=== PATIENT | female | born 2000 | race Caucasian/White ===

== ENCOUNTER 2019-03-10 12:47 | Emergency (ER) | payer BC, SELFPAY ==
--- NOTE | 2019-03-10 12:52 | W.ED.GENAD ---
Discharge Plan Disposition Patient Disposition: HOME Condition: Stable Discharge Details Chief Complaint: Abd Prob Clinical Impression: Crohn disease, Right lower quadrant abdominal pain Primary Care Provider: Ashvin Castillo ED Provider: Jun Adams Home Meds and New Rx's Prescriptions: New prednisone 20 mg tablet 60 mg PO DAILY 5 Days Qty: 15 RF: 0 ciprofloxacin HCl 500 mg tablet 500 mg PO BID Qty: 14 RF: 0 metronidazole [Flagyl] 500 mg tablet 500 mg PO TID Qty: 21 RF: 0 No Action Novolog Flexpen U-100 Insulin 100 UNIT/1 ML insulin pen 6 unit IJ AC & HS 30 Days RF: 0 Humira Pen 40 MG/0.8 ML pen injector kit 80 units Sub-Q DIRECTED RF: 0 Levemir FlexTouch U-100 Insuln 100 unit/mL (3 mL) Insulin Pen 32 unit SUBCUT .QHS RF: 0 Discharge Instructions Additional Instructions: Your cat scan showed that you have a region of your bowel that is inflammed and is likely causing your symptoms follow up with your primary care provider within 1-2 weeks if you have severe worsening of pain, persistent vomit or feel significantly more ill return to the emergency department for reevaluation Medical Decision Making 18 yo female with hx of T1dm, crohn's, who comes in with chief complaint of 2-3 days of lower abdominal pain. She is not sure if it feels similar to prior crohn's flares. She denies fevers, chills, vomithas had intermittent nausea. She has pain in the lower abdomen on both sides but right is greater than left. Given location of pain will obtain ct imaging to eval for possible appendicitis among other pathology. patient's labs unremarkable other than mild leukocytosis, ct shows inflammation of terminal ileum consistent with crohn's flare. Will place on steroids and abx and advised f/u with pcp and return precautions given Differential Diagnosis colitis, appendicitis Medical Records Medical records reviewed: Yes I reviewed the patient's medical records. Imaging Data Radiologic Study: Attestation: I personally reviewed and interpreted this imaging study as follows: Imaging: CT Scan Radiologist's impression: Abnormal distal and terminal ileal findings consist with history of regional enteritis. A degree of stricture at the terminal ileum is considered likely. Lab Data Lab results reviewed: Yes I reviewed the patient's lab results. HPI General Mode of arrival: ambulatory. Date/Time Provider Initiated Documentation: 03/10/19 12:48. Limitations to Documentation: no limitations. Information obtained by: patient. History of Present Illness 18 year old F presents to the emergency department with the chief complaint of lower abdominal pain, described as moderate, Quality is described as aching, and it has been intermittent. No relieving factors improve symptom(s), No exacerbating factors reported . Patient did receive the following treatments prior to arrival, none Related Data Home Medications Medication Instructions Recorded Confirmed Novolog Flexpen U-100 Insulin 6 unit IJ AC & HS 30 Days applic 12/21/15 03/10/19 Humira Pen 80 units SUB-Q DIRECTED 10/14/17 03/10/19 ciprofloxacin HCl 500 mg PO BID #14 tab 03/10/19 insulin detemir U-100 [Levemir 32 unit SUBCUT .QHS 03/10/19 03/10/19 FlexTouch U-100 Insuln] metronidazole [Flagyl] 500 mg PO TID #21 tab 03/10/19 prednisone 60 mg PO DAILY 5 Days #15 tab 03/10/19 Previous Rx's Medication Instructions Recorded ciprofloxacin HCl 500 mg PO BID #14 tab 03/10/19 metronidazole [Flagyl] 500 mg PO TID #21 tab 03/10/19 prednisone 60 mg PO DAILY 5 Days #15 tab 03/10/19 Allergies Allergy/AdvReac Type Severity Reaction Status Date / Time No Known Allergies Allergy Unverified 03/10/19 12:56 Review of Systems Review of Systems All systems reviewed & are unremarkable except as noted in HPI and below Constitutional Denies chills, Denies fever(s) and Denies weakness Cardiovascular Denies chest pain and Denies dyspnea Respiratory Denies cough and Denies dyspnea Gastrointestinal Denies vomiting Musculoskeletal Denies joint swelling Neurologic Denies weakness [facility] Medical History (Updated 09/25/18 @ 22:03 by Wendy Arredondo) DKA (diabetic ketoacidoses) Ileitis, terminal R KNEE INJURY Type I diabetes mellitus Surgical History (Updated 03/17/17 @ 06:44 by Wendy Kinsey) Colonoscopy - MAC (03/06/17) Social History Smoking/Tobacco Use Status: Never Alcohol Intake: never Drug use: Never Do you feel safe in your relationship?: Yes Exam Const General: no acute distress Orientation: alert HENMT Head: normal to inspection Ears: external ears normal General nose exam: external nose normal Mouth: moist mucous membranes Eyes General: appearance normal, both eyes and all related structures Neck Neck: normal visual inspection Resp Effort & Inspection: normal respiratory effort and able to speak in complete sentences Cardio Rate: regular rate Skin General skin exam: no rashes or lesions noted Neuro General: alert and oriented x3 Extrem General: normal to inspection Psych Mental Status: mental status grossly normal
[2019-03-10 12:53] VITALS: BP 117/76; PULSE 129; RESP 16; TEMP 36.3; O2SAT 96
--- NOTE | 2019-03-10 13:03 | DI.CT_ITS ---
SYMPTOM/DIAGNOSIS: RIGHT LOWER ABDOMINAL PAIN CT ABDOMEN AND PELVIS: CT scan of the abdomen and pelvis was performed following contrast administration. Comparison is 01/27/17 The lung bases are clear. The liver, spleen, pancreas, gallbladder, bile ducts and adrenal glands are unremarkable as are the kidneys, ureters and urinary bladder. Reproductive organs are unremarkable. The abdominal aorta is of normal caliber. No pneumoperitoneum is seen. There is bowel wall thickening and enhancement involving the distal ileum and terminal ileum. There is dilatation of the ileum up to 3 cm in diameter. Infiltration of the surrounding fat is noted. The remainder of the bowel is unremarkable. There are mildly enlarged lymph nodes seen in the right lower quadrant likely reactive. No ascites or free air is appreciated. No acute osseous abnormality is identified. IMPRESSION: Abnormal enhancement and wall thickening involving the distal and terminal ileum consistent with enteritis. This may be infectious or inflammatory.
[2019-03-10 13:22] LABS: BE (Venous) 1.9 mmol/L (-3-3); HCO3 (Venous) 26 mmol/L (22-28); O2 Sat (Venous) 87 % (70-80); TCO2 (Venous) 23 mmol/L (22-29); pCO2 (Venous) 39 mm/Hg (34-47); pH (Venous) 7.43 (7.32-7.43); pO2 (Venous) 46 mm/Hg (28-44)
[2019-03-10 13:23] LABS: Abs Immature Grans 0.05 k/cumm (0.0-0.09); Absolute Basophil Count 0.02 k/cumm (0.0-0.2); Absolute Lymphocyte Count 1.34 k/cumm (1.2-3.4); Absolute Monocyte Count 1.24 k/cumm (0.11-0.7); Basophils % 0.1; Eosinophils % 0.4; HCT 40.8 % (36.0-46.0); HGB 13.7 g/dL (12.0-15.5); Immature Grans % 0.3; Lymphocytes % 8.1; Mean Corp. HGB Concentration 33.6 g/dL (32.0-36.0); Mean Corpuscular Hemoglobin 30.4 pg (27.0-33.0); Mean Corpuscular Volume 90.5 fL (80-95); Mean Platelet Volume 10.5 fL (8.0-11.0); Monocytes % 7.5; Neutrophils % 83.6; Platelet Count 334 x1000/uL (130-400); RBC 4.51 m/cumm (4.00-5.20); RBC Distribution Width 12.5 % (11.7-14.6); White Blood Cell Count 16.51 k/cumm (4.4-10.8)
[2019-03-10 13:25] LABS: Absolute Eosinophil Count 0.07 k/cumm (0.0-0.7)
[2019-03-10] MEDS: Ketorolac 15 MG/ML VIAL IVP (13:37)
[2019-03-10] MEDS: Normal Saline 1,000 ML 1000 ML IV (13:37)
[2019-03-10] MEDS: Ondansetron 4 MG/2 ML VIAL IVP (13:37)
[2019-03-10 13:41] LABS: ALT 10 U/L (12-78); Albumin 3.4 g/dL (3.4-5.0); Alkaline Phosphatase 69 U/L (46-116); Anion Gap 12.5 mmol/L (3-11); BUN 11 mg/dL (7-18); Bilirubin, Total 0.5 mg/dL (0.2-1.0); CO2 25.5 mmol/L (21.0-32.0); CREATININE 0.86 mg/dL (0.55-1.02); Calcium 9.3 mg/dL (8.5-10.1); Chloride 100 mmol/L (98-107); Glucose 237 mg/dL (70-100); Lipase 52 U/L (73-393); Magnesium 1.7 mg/dL (1.8-2.4); Sodium 138 mmol/L (136-145); Total Protein 7.9 g/dL (6.4-8.2)
[2019-03-10 13:42] LABS: AST < 5 U/L (15-37)
[2019-03-10] MEDS: Omnipaque 350 MG/ML 100 ML BTL IV (14:05)
[2019-03-10 14:25] LABS: Bilirubin Small (Negative); Blood Small (Negative); Clarity Cloudy (Clear); Glucose 100 mg/dL (Negative); Ketones 15 mg/dL (Negative); Leukocyte Esterase Negative (Negative); Nitrite Negative (Negative); Specific Gravity 1.025 (1.005-1.025)
[2019-03-10 14:37] LABS: Epithelial Cells Many HPF (Negative)
[2019-03-10 14:38] LABS: C & S Indicated? No/Sq. Contamination
[2019-03-10 15:02] VITALS: TEMP 38
--- NOTE | 2019-03-10 15:15 | DI.VRAD_ITS ---
EXAM: CT Abdomen and Pelvis With Contrast EXAM DATE/TIME: 03/10/2019 1:04 PM CLINICAL HISTORY: 18 years old, female; Patient HX: Right lower abdominal pain x 2day, HX of crohn disease. TECHNIQUE: Imaging protocol: Axial computed tomography images of the abdomen and pelvis with intravenous contrast. Coronal and sagittal reformatted images were created and reviewed. Radiation optimization: All CT scans at this facility use at least one of these dose optimization techniques: automated exposure control; mA and/or kV adjustment per patient size (includes targeted exams where dose is matched to clinical indication); or iterative reconstruction. Contrast material: OMNIPAQUE 350;Contrast volume: 98 ml;Contrast route: IV; COMPARISON: CT ABD PELVIS WITH CONTRAST 01/27/2017 1:01 PM FINDINGS: Liver: Normal. No mass. Gallbladder and bile ducts: Normal. No calcified stones. No ductal dilation. Pancreas: Normal. No ductal dilation. Spleen: Normal. No splenomegaly. Adrenals: Normal. No mass. Kidneys and ureters: Normal. No hydronephrosis. Stomach and bowel: There is wall edema and hyperemia involving the distal and terminal ileum. There is some relative efferent distention of the distal ileum, nearly 3 cm. Appendix: The appendix is identified, non-thickened. Intraperitoneal space: Normal. No free air. No significant fluid collection. Vasculature: Normal. No abdominal aortic aneurysm. Lymph nodes: There is mild pericecal adenopathy. Bladder: Unremarkable as visualized. Reproductive: Unremarkable as visualized. Bones/joints: No acute fracture. No dislocation. Soft tissues: Unremarkable. Other findings: There is edema of the vasa recta with adjacent inflammatory change. IMPRESSION: Abnormal distal and terminal ileal findings consist with history of regional enteritis. A degree of stricture at the terminal ileum is considered likely. COMMENT: Preliminary interpretation is based on receipt of 317 image(s). A final report will be issued subsequently. Dictated and Authenticated by: Sarah Beth Guerrero MD. Ordering:JACKIE Barahona MD
[2019-03-10 15:31] VITALS: BP 99/61; PULSE 80; RESP 16; TEMP 37; O2SAT 98
[2019-03-10 15:32] VITALS: BP 99/61; PULSE 80; RESP 16; TEMP 37; O2SAT 98
== END 2019-03-10 15:35 | disposition home or self-care (01) ==
PROVIDERS: Emergency Provider Emergency Medicine; PCP Pediatrics
DX: K50.919 Crohn's disease, unspecified, with unspecified complications (principal); E10.9 Type 1 diabetes mellitus without complications
CPT/HCPCS: 36415; 80053; 81025; 82805; 83690; 96361; 96374; 96375; 99285; 74177; 81003; 81015; 83735; 85025; 99284; J1885; J2405; J3490

== ENCOUNTER 2019-03-22 15:24 | Outpatient (CLI) | payer BC, SELFPAY ==
[2019-03-22 16:38] LABS: C-Reactive Protein 2.59 mg/dL (0.0-0.3)
[2019-03-25 08:07] LABS: Vitamin D 25 Total 21.1 ng/ml (30-100)
[2019-03-26 22:02] LABS: Adalimumab QN with Reflex Ab 1.7 mcg/mL
== END 2019-03-22 15:44 ==
PROVIDERS: PCP Pediatrics; Visit Provider Pediatrics
DX: K50.919 Crohn's disease, unspecified, with unspecified complications (principal)
CPT/HCPCS: 36415; 82306; 83520; 86140

== ENCOUNTER 2019-09-05 16:32 | Outpatient (CLI) | payer BC, SELFPAY ==
--- NOTE | 2019-09-05 10:00 | DIABASSESS_ITS ---
DESCRIPTION/ASSESSMENT: Moinca Dutta presents for diabetes self management with type 1 diabetes in at 7 weeks gestation. She reports vomiting sometimes if she eats anything. She states she is very worried about miscarrying. Thinks A1c was 7.3 6 months ago or so. Monica states she manages diabetes with 30u Lantus and about 25u Novolog daily dosing at 1 unit covers 18grams carbohydrate and 1 unit corrects 40mg/dl above 120. Reports hypoglycemia 2-3 times a week. Blood sugars over past 24 hours 69-239. She tests her blood sugars several times a day and corrects her insulin whenever she tests, even though it is less than 4 hours. She states she checks ketones if blood sugar over 170mg.dl. INTERVENTION: Monica is aware of the risks of out of control blood sugars and . At this time we do not have a good picture of her dosing insulin, food intake and resulting blood sugar. Discussed insulin correction no greater than 3-4 hours apart. Discussed ketone testing. Discussed diabetes technology with monitoring blood sugars iw continuous glucose monitor and administering insulin with a pump. PLAN: She will document food, blood sugar and insulin dosing for 24 hours and be in touch. In meantime found that Dexcom G6 is not approved for although it is worn. Patient would need to verify blood sugars with glucometer prior to dosing insulin. It would give her trends and rates of change of blood sugar.
== END 2019-09-05 16:52 ==
PROVIDERS: PCP Pediatrics; Visit Provider Dietitian, Registered
DX: O24.011 Pre-existing type 1 diabetes mellitus, in pregnancy, first trimester (principal); Z71.3 Dietary counseling and surveillance
CPT/HCPCS: G0108

== ENCOUNTER 2019-09-26 17:21 | Outpatient (REF) | payer BC, SELFPAY ==
[2019-09-26 18:14] LABS: *AMPHETAMINES SCREEN URINE Negative (Negative); *BARBITURATES SCREEN URINE Negative (Negative); *BENZODIAZEPINES SCREEN URINE Negative (Negative); Cannabinoids THC POSITIVE (Negative); Cocaine Screen,Urine Negative (Negative); METHADONE URINE SCREEN Negative (Negative); OPIATES URINE SCREEN Negative (Negative)
[2019-09-26 18:15] LABS: Tricyclic Antidepressants Negative (Negative)
[2019-10-02 10:28] LABS: Buprenorphine Negative; Norbuprenorphine Negative
== END 2019-09-26 17:41 ==
LOC: LBN 17:21
PROVIDERS: PCP Pediatrics; Visit Provider Advanced Practice Midwife
DX: Z34.91 Encounter for supervision of normal pregnancy, unspecified, first trimester (principal)
CPT/HCPCS: 80307; 87086

== ENCOUNTER 2019-10-04 11:16 | Outpatient (CLI) | payer BC, SELFPAY ==
[2019-10-04 11:47] LABS: Kit/Specimen SENT
== END 2019-10-04 11:36 ==
PROVIDERS: PCP Pediatrics; Visit Provider Advanced Practice Midwife
DX: Z34.01 Encounter for supervision of normal first pregnancy, first trimester (principal); Z3A.11 11 weeks gestation of pregnancy

== ENCOUNTER 2019-10-25 15:56 | Outpatient (REF) | payer BC, SELFPAY ==
[2019-10-28 14:44] LABS: Chlamydia Result Negative (Negative); GC Result Negative (Negative)
== END 2019-10-25 16:16 ==
LOC: LBN 15:56
PROVIDERS: PCP Pediatrics; Visit Provider Obstetrics & Gynecology Gynecology
DX: Z34.91 Encounter for supervision of normal pregnancy, unspecified, first trimester (principal); Z11.3 Encounter for screening for infections with a predominantly sexual mode of transmission
CPT/HCPCS: 87491; 87591

== ENCOUNTER 2020-02-24 10:02 | Outpatient (CLI) | payer BC, SELFPAY ==
[2020-02-24 15:45] LABS: HCT 33.7 % (36.0-46.0); HGB 11.2 g/dL (12.0-15.5); Mean Corp. HGB Concentration 33.2 g/dL (32.0-36.0); Mean Corpuscular Hemoglobin 28.5 pg (27.0-33.0); Mean Corpuscular Volume 85.8 fL (80-95); Mean Platelet Volume 11.6 fL (8.0-11.0); Platelet Count 291 x1000/uL (130-400); RBC 3.93 m/cumm (4.00-5.20); RBC Distribution Width 12.5 % (11.7-14.6); White Blood Cell Count 8.87 k/cumm (4.4-10.8)
[2020-02-24] MEDS: NIFEdipine 10 MG CAP PO (15:48)
[2020-02-24 15:57] LABS: ALT 16 U/L (14-59); AST 20 U/L (15-37); Albumin 2.5 g/dL (3.4-5.0); Alkaline Phosphatase 109 U/L (46-116); Anion Gap 9.7 mmol/L (3-11); BUN 13 mg/dL (7-18); Bilirubin, Total 0.2 mg/dL (0.2-1.0); CO2 23.3 mmol/L (21.0-32.0); CREATININE 0.74 mg/dL (0.55-1.02); Calcium 9.1 mg/dL (8.5-10.1); Chloride 102 mmol/L (98-107); Glucose 144 mg/dL (74-106); Sodium 135 mmol/L (136-145); Total Protein 6.7 g/dL (6.4-8.2); Uric Acid 5.4 mg/dL (2.6-6.0)
[2020-02-24] MEDS: Normal Saline Flush 10 ML SYR (16:14)
[2020-02-24] MEDS: Lactated Ringers 1,000 ML 30 ML IV (16:16)
--- NOTE | 2020-02-24 16:37 | HPE_ITS ---
Date of service: 02/24/20 Time of Service: 16:37 Assessment and Plan Assessment and plan (1) : Status: Acute Qualifiers: Weeks of gestation: 32 weeks Qualified Code(s): Z3A.32 - 32 weeks gestation of (2) Type 1 diabetes mellitus without complication: Status: Acute (3) Elevated blood pressure affecting in third trimester, antepartum: Status: Acute Assessment and plan: New onset of severe hypertension treated with 1 dose of oral nifedipine with good response. After discussion with Paige dial at [facility] the plan is to transfer care for proximity to NICU and for treatment and monitoring of patient's blood pressure and diabetes. She has excepted care and will be transported via ambulance. The plan at this time is to have an RN accompany her with instructions regarding dosing IV antihypertensive medication were her blood pressure to become critical. Per d iscussion with Dr. Celestin no steroids will be administered at this time. History of Present Illness History of Present Illness Chief Complaint: 19-year-old female currently 32 weeks EGA with hypertension and type 1 DM Narrative: Patient is a 19-year-old G1, P0 female with an NI of 04/20/2020 by a first trimester OB ultrasound who presented to the center at [facility] for initiation of NSTs. Patient has a history of type 1 diabetes since 2014 and has been cared for by the maternal- medicine service at [facility]. At the time of presentation for the NST at 1517 her blood pressure 169/107. Sequential blood pressure taken every 10 minutes 1527: 178/104, 1537: 170/116. Patient received 10 mg of nifedipine and her follow-up blood pressure at 1556 140/100 followed by blood pressure at 1600 of 155/90. I spoke with Dr. Paige Celestin regarding patient's blood pressure issues and decision was made to transfer her to [facility] for higher level of care. Review of Systems Constitutional Constitutional: Reports system reviewed and no additional complaints, except as documented Cardiovascular Cardiovascular: Reports rapid heart rate and Reports pedal edema (Bilateral) Respiratory Respiratory: Reports system reviewed and no additional complaints, except as documented Gastrointestinal Gastrointestinal: Reports system reviewed and no additional complaints, except as documented Genitourinary Comments: Abdominal pressure. No contractions no loss of fluid from the vagina. 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 Sexually active: Yes Do you think of yourself as: straight/heterosexual Current gender identity: female Do you feel safe in your relationship?: Yes Female Reproductive History Menstrual Age of Menarche: 10 Duration of menses: 3-5 days control method: pills History History 1 Para 0 Hx # Term Pregnancies 0 Multiple births 0 Hx # Pregnancies 0 Ectopic pregnancies 0 AB induced 0 Hx Number of Living Children 0 AB spontaneous 0 Meds Home Medications and Allergies Home Medications Medication Instructions Recorded Confirmed Type vits 75-iron 28 mg-folic pkg PO 09/12/19 10/25/19 History acid 800 mcg-omega3 440 mg oral pack insulin detemir U-100 100 unit/mL 30 unit SUBCUT .QHS ml 09/26/19 10/25/19 History (3 mL) subcutaneous pen insulin lispro 100 unit/mL 1 unit SC .COMPLEX ml 09/26/19 10/25/19 History subcutaneous pen Allergies Allergy/AdvReac Type Severity Reaction Status Date / Time No Known Allergies Allergy Verified 10/25/19 14:22 Exam Const General: no acute distress Nutritional Appearance: overweight Orientation: alert, awake and oriented x3 Neck Neck: normal visual inspection Resp Effort & Inspection: normal respiratory effort Auscultation: clear to auscultation bilaterally Cardio Rate: regular rate and tachycardic Rhythm: regular rhythm GI Inspection: normal to inspection Palpation: soft, no hepatosplenomegaly, no guarding and nontender General: deferred Skin General skin exam: no rashes or lesions noted Neuro DTR's: Rt Patellar: 1+ (No clonus) and Lt Patellar: 1+ (No clonus) Extrem General: edema Laterality: bilateral (Pretibial edema bilaterally) Psych Speech and Movement: speech and movement normal Mood: anxious mood (Tearful when told about transfer to [facility]) Affect: normal affect Attitude: cooperative Thought Process: normal Insight: insight good Judgment: judgment good Results Labs Result diagrams: 02/24/20 15:35 02/24/20 15:35 Labs: Laboratory Results - last 24 hr 02/24/20 02/24/20 15:35 15:35 WBC 8.87 RBC 3.93 L Hgb 11.2 L Hct 33.7 L MCV 85.8 MCH 28.5 MCHC 33.2 RDW 12.5 Plt Count 291 MPV 11.6 H Sodium 135 L Potassium 4.0 Chloride 102 Carbon Dioxide 23.3 Anion Gap 9.7 BUN 13 Creatinine 0.74 Estimated GFR/1.73 m2 >= 60.00 Glucose 144 H Uric Acid 5.4 Calcium 9.1 Total Bilirubin 0.2 AST 20 ALT 16 Alkaline Phosphatase 109 Total Protein 6.7 Albumin 2.5 L COVID-19 Screening Have you,or household,traveled outside [place] in last 14 days?: No Recent travel in the [facility] within the last 14 days?: No Recent out of the country travel within the last 14 days?: No Exposure or possible exposure to illness during travel?: No Had IN PERSON contact w/suspected or confirmed C-19 person: No Have you had the following symptoms in the past few days?: No
[2020-02-24] MEDS: hydrALAZINE 20 MG/ML VIAL IVP (17:20)
[2020-02-24 18:09] LABS: PROTEIN 39.1 mg/dL
[2020-02-24 18:12] LABS: COMMENT (LAB VIEW ONLY) 33.04 mg/dL; Prot/Crea Ur Ratio 1.18
== END 2020-02-24 10:22 ==
PROVIDERS: PCP Pediatrics; Visit Provider Obstetrics & Gynecology Gynecology
DX: O24.013 Pre-existing type 1 diabetes mellitus, in pregnancy, third trimester (principal); Z3A.32 32 weeks gestation of pregnancy
CPT/HCPCS: 80053; 85027; 99221; 59025; 82565; 84156; 84550; G0378; J0360

== ENCOUNTER 2020-05-17 15:28 | Inpatient (IN) | payer BC, SELFPAY ==
[2020-05-17] VITALS (68 sets, daily range): BP systolic 111–167; BP diastolic 63–119; PULSE 91–185; RESP 18–47; TEMP 36.1–36.7; O2SAT 98–100
--- NOTE | 2020-05-17 15:15 | RT.EKG_ITS ---
APPROVED REPORT Exam: Resting ECG Patient Location: E HR:125 bpm ECG Measurements Heart Rate 125 AXIS ID 124 P 74 QRSd 120 QRS 64 QT 349 T 15 QTc 504 Conclusion Sinus tachycardia...rate> 99 LAE, consider biatrial enlargement. Left ventricular hypertrophy...multiple LVH criteria
--- NOTE | 2020-05-17 15:30 | DI.CT_ITS ---
EXAM: CT HEAD WO CLINICAL HISTORY: MEntal status change, elev glucose. TECHNIQUE: Imaging Protocol: Axial computed tomography images with coronal and sagittal reformatted images were created and reviewed COMPARISON: No exams were available for comparison FINDINGS: The ventricular system is normal in appearance. No evidence of acute intracranial hemorrhage, mass effect, or midline shift. The orbital structures are unremarkable. The temporal bone structures appear intact. Calvarium: Normal. Visualized Paranasal sinuses/Mastoids: Clear. IMPRESSION: Normal cranial CT. RADIATION DOSE DELIVERED: 744.05mGy.cm Total DLP 744.05mGy.cm Total DLP DATA REPOSITORY: All CT scans at this facility are submitted to the National Radiology Data Registry (NRDR) Dose Index Registry (DIR) with the [employer] ([employer]). RADIATION OPTIMIZATION: All CT scans at this facility use at least one of these dose optimization te chniques: automated exposure control; mA and/or kV adjustment per patient size (includes targeted exa ms where dose is matched to clinical indication); or iterative reconstruction.
--- NOTE | 2020-05-17 15:30 | DI.RAD_ITS ---
EXAM: XR CHEST 2V PA LATERAL CLINICAL HISTORY: mental status change, elev glucose. TECHNIQUE: 2D digital imaging was performed. COMPARISON: No exams were available for comparison FINDINGS: LUNGS: Clear. No pleural abnormality seen. HEART: Normal. MEDIASTINUM: Normal. OTHER FINDINGS: None. IMPRESSION: No acute pulmonary findings. DATA REPOSITORY: RADIATION DOSE DELIVERED: Total DLP
--- NOTE | 2020-05-17 15:35 | ED.GENADUL_ITS ---
Discharge Plan Disposition Patient Disposition: [facility] INPATIENT Condition: Stable Discharge Details Clinical Impression: DKA (diabetic ketoacidoses), Paroxysmal SVT (supraventricular tachycardia) Primary Care Provider: Ashvin Castillo ED Provider: Carlos Valenzuela Home Meds and New Rx's Prescriptions: No Action insulin lispro [Humalog KwikPen Insulin] 100 unit/mL insulin pen 1 unit SC .COMPLEX RF: 0 Levemir FlexTouch U-100 Insuln 100 unit/mL (3 mL) insulin pen 30 unit SUBCUT .QHS RF: 0 Medical Decision Making 19-year-old female type I diabetic brought by EMS after acting strangely at home for hours time. No clear knowledge of her last use of insulin. No report of fall or trauma. The patient's mother states there has been increased stress due to a new and patient's return to job after her . The baby is being bottle-fed. She arrives via EMS to the ER confused, tachycardic with Kussmaul breathing pattern. She is afebrile. Initial fingerstick glucose simply reads high. 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 She is pulling at IVs and at times trying to get out of bed. Therefore, a clinical patient safety observer was ordered. Laboratories reveal venous pH of 6 less than 6.7, PCO2 25. Initial glucose greater than 500. She has an elevated white blood cell count of 43, likely due to stress demargination similar to that previously in the past with DKA in 2015. Appears to have a component of hemoconcentration given hematocrit of 49. Platelets are 628. Chemistries: Phosphorus 9.4, magnesium 2.7. Troponin is negative. Sodium 139, potassium 4.2, chloride 103, bicarb 5.2, BUN 24, creatinine 1.7, anion gap of 30 and glucose 642. Screening chest x-ray as well as CT scan of the head obtained given her mental status changes. The imaging studies are unremarkable. Upon return from the radiology department, the patient spiked a heart rate to 200, repeat EKG was obtained revealing AV nelly reentry tachycardia, narrow complex regular, with a rate of 182. Patient was given adenosine 6 mg and converted to a sinus rhythm. She had recurrent episode of AV nelly reentrant tachycardia, received a second dose of adenosine 6 mg, and again converted to sinus rhythm. Patient then had a third recurrence of AV nelly reentrant tachycardia and I felt she was best served by starting on a diltiazem drip. She was given 10 mg bolus and placed on a drip of 5 mg an hour with good immediate control of her tachydysrhythmia. Patients lactate trending down with repeat of 4.6. Repeat chemistries with glucose 590, sodium 140, potassium 4.9, chloride 108, bicarb less than 5, anion gap of 27. Patient's respiratory rate is improving, her mentation is also improving and she is beginning to converse with her at the bedside. She remains critically ill and will require an ICU admission. Case discussed with Dr. Haile. Lab Data Lab results reviewed: Yes I reviewed the patient's lab results. Labs: Laboratory Results - last 24 hr 05/17/20 05/17/20 05/17/20 15:35 15:35 15:35 WBC 43.20 H* RBC 5.28 H Hgb 14.6 Hct 49.0 H MCV 92.8 MCH 27.7 MCHC 29.8 L RDW 13.6 Plt Count 628 H MPV 11.2 H VBG pH VBG pCO2 VBG pO2 VBG HCO3 VBG Total CO2 VBG O2 Saturation VBG Base Excess VBG Lactate 5.5 H* Sodium 139 Potassium 4.2 Chloride 103 Carbon Dioxide 5.2 L Anion Gap 30.8 H BUN 24 H Creatinine 1.72 H Estimated GFR/1.73 m2 37.80 Glucose 642 H* Calcium 8.6 Phosphorus Magnesium Total Bilirubin 0.3 AST 20 ALT 17 Alkaline Phosphatase 168 H Troponin I Total Protein 7.9 Albumin 3.7 Urine Color Urine Clarity Urine pH Ur Specific Hemet Urine Protein Urine Ketones Urine Blood Urine Nitrite Urine Bilirubin Urine Urobilinogen Ur Leukocyte Esterase Urine RBC Urine WBC Ur Epithelial Cells Urine Crystals Urine Bacteria Urine Casts Urine Mucus Ur Culture Indicated? Urine Glucose Urine Opiates Screen Urine Methadone Screen Ur Barbiturates Screen Ur Tricyclics Screen Ur Amphetamines Screen U Benzodiazepines Scrn Urine Cocaine Screen Ur THC Screen 05/17/20 05/17/20 05/17/20 15:35 15:35 15:35 WBC RBC Hgb Hct MCV MCH MCHC RDW Plt Count MPV VBG pH < 6.77 L* VBG pCO2 25 L VBG pO2 67 VBG HCO3 Not Applicable VBG Total CO2 Not Applicable VBG O2 Saturation 84 VBG Base Excess Not Applicable VBG Lactate Sodium Potassium Chloride Carbon Dioxide Anion Gap BUN Creatinine Estimated GFR/1.73 m2 Glucose Calcium Phosphorus 9.4 H Magnesium 2.7 H Total Bilirubin AST ALT Alkaline Phosphatase Troponin I < 0.05 Total Protein Albumin Urine Color Urine Clarity Urine pH Ur Specific Hemet Urine Protein Urine Ketones Urine Blood Urine Nitrite Urine Bilirubin Urine Urobilinogen Ur Leukocyte Esterase Urine RBC Urine WBC Ur Epithelial Cells Urine Crystals Urine Bacteria Urine Casts Urine Mucus Ur Culture Indicated? Urine Glucose Urine Opiates Screen Urine Methadone Screen Ur Barbiturates Screen Ur Tricyclics Screen Ur Amphetamines Screen U Benzodiazepines Scrn Urine Cocaine Screen Ur THC Screen 05/17/20 05/17/20 15:50 15:50 WBC RBC Hgb Hct MCV MCH MCHC RDW Plt Count MPV VBG pH VBG pCO2 VBG pO2 VBG HCO3 VBG Total CO2 VBG O2 Saturation VBG Base Excess VBG Lactate Sodium Potassium Chloride Carbon Dioxide Anion Gap BUN Creatinine Estimated GFR/1.73 m2 Glucose Calcium Phosphorus Magnesium Total Bilirubin AST ALT Alkaline Phosphatase Troponin I Total Protein Albumin Urine Color Yellow Urine Clarity Cloudy Urine pH 5.5 Ur Specific Hemet >= 1.030 H Urine Protein >=300 H Urine Ketones >=160 H Urine Blood Moderate H Urine Nitrite Negative Urine Bilirubin Small H Urine Urobilinogen 0.2 Ur Leukocyte Esterase Negative Urine RBC 0-2 Urine WBC 0-2 Ur Epithelial Cells Negative Urine Crystals Negative Urine Bacteria Rare Urine Casts 0-2 hyaline Urine Mucus Negative Ur Culture Indicated? No Urine Glucose 500 H Urine Opiates Screen Negative Urine Methadone Screen Negative Ur Barbiturates Screen Negative Ur Tricyclics Screen Negative Ur Amphetamines Screen Negative U Benzodiazepines Scrn Negative Urine Cocaine Screen Negative Ur THC Screen Positive A HPI General Mode of arrival: EMS . Date/Time Provider Initiated Documentation: 05/17/20 15:40 . Limitations to Documentation: no limitations . Information obtained by: patient and EMS . History of Present Illness 19 year old F presents to the emergency department with the chief complaint of Hyperglycemia, mental status change, described as severe, Quality is described as constant, Patient reports no radiation. Patient started experiencing this hour(s) and it has been constant. No relieving factors improve symptom(s), No exacerbating factors reported . Patient notes other (No fall or trauma reported.). Patient did receive the following treatments prior to arrival, other (1 L normal saline by EMS) Related Data Home Medications Medication Instructions Recorded Confirmed insulin detemir U-100 100 unit/mL 30 unit SUBCUT .QHS ml 09/26/19 05/17/20 (3 mL) subcutaneous pen insulin lispro 100 unit/mL 1 unit SC .COMPLEX ml 09/26/19 05/17/20 subcutaneous pen Allergies Allergy/AdvReac Type Severity Reaction Status Date / Time No Known Allergies Allergy Verified 05/17/20 17:24 General Stated Complaint: AMS/LOC CHACHA: 2 Review of Systems Narrative: No recent illness, trauma, fall reported. 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 Sexually active: Yes Do you think of yourself as: straight/heterosexual Current gender identity: female Do you feel safe in your relationship?: Yes Female Reproductive History Menstrual Age of Menarche: 10 Duration of menses: 3-5 days control method: pills History History 1 Para 0 Hx # Term Pregnancies 0 Multiple births 0 Hx # Pregnancies 0 Ectopic pregnancies 0 AB induced 0 Hx Number of Living Children 0 AB spontaneous 0 Exam Narrative Exam Narrative: GEN: awake, confused HEAD: Normocephalic, atraumatic ENT: Mucous membranes dry, oropharynx unremarkable, External ear exam unremarkable EYES: PERRL, EOMI NECK: Full ROM, no DASHA, no menigismus CHEST/RESP: Nontender, clear to auscultation bilateral, increased respiratory rate/hypopneic CARDIOVASCULAR: Tachycardic and regular, 2+ Rad pulse bilateral ABDOMEN: Soft, nontender, no mass. +Bowel sounds EXT: Full ROM, no edema, no rash Neuro:no focal neurologic deficits Psych: Speech fluent, affect bizarre Course Vital Signs Vital signs: Vital Signs Temperature 36.1 C L 05/17/20 15:22 Pulse 127 H 05/17/20 15:22 Respiratory Rate 36 H 05/17/20 15:22 Blood Pressure 151/100 H 05/17/20 15:22 Pulse Oximetry 98 05/17/20 15:22 Temperature 36.1 C L 05/17/20 15:22 Temperature Source Skin 05/17/20 15:22 Pulse 127 H 05/17/20 15:22 Respiratory Rate 36 H 05/17/20 15:22 Blood Pressure 151/100 H 05/17/20 15:22 Blood Pressure Position Supine 05/17/20 15:22 Pulse Oximetry 98 05/17/20 15:22 Oxygen Delivery Method Room Air 05/17/20 15:22 Oxygen Flow Rate 0 05/17/20 15:22 Critical Care Time Critical Care Time Critical Care Time: Yes Total Critical Care Time: 45 Attestation: Bedside care, review of records, discussion with family.
[2020-05-17] MEDS: Normal Saline 1,000 ML 1000 ML IV ×2 (15:39→21:45)
[2020-05-17 15:42] LABS: O2 Sat (Venous) 84 %; pCO2 (Venous) 25 mmHg (41-51); pO2 (Venous) 67 mmHg
[2020-05-17 15:47] LABS: HGB 14.6 g/dL (11.2-15.7); MCH 27.7 pg (27.0-33.0); MCHC 29.8 % (32.0-36.0); MCV 92.8 fL (80-95); MPV 11.2 fL (8.0-11.0); Nucleated RBC 0 %; Platelet Count 628 10^3/uL (130-400); RBC 5.28 10^6/uL (3.93-5.22); RDW 13.6 % (11.7-14.6); RDW-SD 45.5 fL
[2020-05-17 15:50] LABS: Lactate 5.5 mmol/L (0.6-1.4)
[2020-05-17] MEDS: Insulin REGULAR-Human 100 UNITS/ML UNIT 9 UNITS IV (16:00)
[2020-05-17] MEDS: INSULIN REGULAR IN 0.9 % NACL 100 UNIT/100 ML BAG IV (16:00)
[2020-05-17 16:03] LABS: ALT 17 U/L (14-59); AST 20 U/L (15-37); Albumin 3.7 g/dL (3.4-5.0); Alkaline Phosphatase 168 U/L (46-116); BUN 24 mg/dL (7-18); Bilirubin, Total 0.3 mg/dL (0.2-1.0); CREATININE 1.72 mg/dL (0.55-1.02); Calcium 8.6 mg/dL (8.5-10.1); Chloride 103 mmol/L (98-107); Potassium 4.2 mmol/L (3.5-5.1); Sodium 139 mmol/L (136-145); Total Protein 7.9 g/dL (6.4-8.2)
[2020-05-17 16:03] LABS: Bilirubin Small (Negative); Blood Moderate (Negative); Clarity Cloudy (Clear); Glucose 500 mg/dL (Negative); Ketones >=160 mg/dL (Negative); Leukocyte Esterase Negative (Negative); Nitrite Negative (Negative); Specific Gravity >= 1.030 (1.005-1.025); Urobilinogen 0.2 EU/dL (Up TO 0.2); pH 5.5 (5-8)
[2020-05-17 16:07] LABS: *AMPHETAMINES SCREEN URINE Negative (Negative); *BARBITURATES SCREEN URINE Negative (Negative); *BENZODIAZEPINES SCREEN URINE Negative (Negative); Cannabinoids THC POSITIVE (Negative); Cocaine Screen,Urine Negative (Negative); METHADONE URINE SCREEN Negative (Negative); OPIATES URINE SCREEN Negative (Negative)
[2020-05-17 16:08] LABS: Tricyclic Antidepressants Negative (Negative)
[2020-05-17 16:10] LABS: Magnesium 2.7 mg/dL (1.8-2.4); PHOSPHORUS 9.4 mg/dL (2.6-4.7); Troponin I < 0.05 ng/mL (<0.06)
[2020-05-17 16:16] LABS: Anion Gap 30.8 mmol/L (3-11); CO2 5.2 mmol/L (21.0-32.0)
[2020-05-17 16:17] LABS: Glucose 642 mg/dL (74-106)
[2020-05-17 16:24] LABS: Bacteria Rare HPF (Negative); C & S Indicated? No; Casts 0-2 Hyaline LPF (Negative); Crystals Negative HPF (Negative); Epithelial Cells Negative HPF (Negative); Mucus Negative (Negative); WBC 0-2 HPF (0-5)
[2020-05-17 16:25] LABS: RBC 0-2 HPF (0-2)
--- NOTE | 2020-05-17 16:30 | RT.EKG_ITS ---
APPROVED REPORT Exam: Resting ECG Patient Location: E HR:182 bpm ECG Measurements Heart Rate 182 AXIS ME 133 P -66 QRSd 118 QRS 34 QT 307 T -69 QTc 536 Conclusion Ectopic atrial tachycardia, unifocal.. LVH with secondary repolarization abnormality
[2020-05-17 16:34] LABS: Absolute Lymphocyte Count 4.75 10^3/uL (1.2-3.4); Absolute Neutrophil Count 35.42 10^3/uL (1.2-6.7); Atypical Lymphocytes % 2; Bands % 9; Metamyelocytes % 2; Myelocytes % 2
[2020-05-17 16:35] LABS: RBC Morphology Normal
[2020-05-17 16:36] LABS: Diff Comment Manual Differential
--- NOTE | 2020-05-17 16:40 | DI.VRAD_ITS ---
PROCEDURE INFORMATION: Exam: XR Chest, 2 Views Exam date and time: 05/17/2020 4:30 PM Age: 19 years old Clinical indication: Patient HX: AMS, elevated glucose TECHNIQUE: Imaging protocol: XR of the chest Views: 2 views. COMPARISON: No relevant prior studies available. FINDINGS: The lung weiss are clear bilaterally. No focal pulmonary consolidation is present. The cardiac silhouette is within normal limits. The costophrenic angles are sharp. The bony structures appear unremarkable. IMPRESSION: No evidence of acute cardiopulmonary disease. Dictated and Authenticated by: Tyree Bailey MD. Ordering:ARNEL Gonzalez MD
--- NOTE | 2020-05-17 16:40 | DI.VRAD_ITS ---
PROCEDURE INFORMATION: Exam: CT Head Without Contrast Exam date and time: 05/17/2020 4:24 PM Age: 19 years old Clinical indication: Altered mental status/memory loss; Patient HX: Elevated glucose TECHNIQUE: Imaging protocol: Computed tomography of the head without contrast. COMPARISON: No relevant prior studies available. FINDINGS: No evidence of hemorrhage. No mass effect. No acute intracranial abnormality. IMPRESSION: No evidence of acute intracranial process. Dictated and Authenticated by: Tyree Bailey MD. Ordering:ARNEL Gonzalez MD
[2020-05-17] MEDS: Adenosine 6 MG/2 ML VIAL IVP ×3 (16:45→17:00)
--- NOTE | 2020-05-17 16:45 | RT.EKG_ITS ---
APPROVED REPORT Exam: Resting ECG Patient Location: I HR:117 bpm ECG Measurements Heart Rate 117 AXIS VT 148 P 69 QRSd 124 QRS 47 QT 364 T 11 QTc 509 Conclusion Sinus tachycardia...rate> 99 Probable left ventricular hypertrophy...(RaVL+SV3)xQRSd >300 ST elev, probable normal early repol pattern...ST elevation, age<55
[2020-05-17] MEDS: Ondansetron 4 MG/2 ML VIAL IVP (17:02)
[2020-05-17] MEDS: POTASSIUM CHLORIDE/0.9% NACL 1,000 ML 200 MEQ IV (17:04)
[2020-05-17 17:09] LABS: Lactate 4.6 mmol/L (0.6-1.4)
[2020-05-17] MEDS: dilTIAZem 25 MG/5 ML VIAL 10 MG IVP (17:14)
[2020-05-17] MEDS: dilTIAZem 125 MG in Normal Saline 100 ML 15 MG IV (17:15)
[2020-05-17 17:22] LABS: BUN 25 mg/dL (7-18); CREATININE 1.52 mg/dL (0.55-1.02); Chloride 108 mmol/L (98-107); Potassium 4.9 mmol/L (3.5-5.1); Sodium 140 mmol/L (136-145)
[2020-05-17] MEDS: POTASSIUM CHLORIDE 10 MEQ/100 ML BAG 100 MEQ (17:25)
[2020-05-17 17:28] LABS: Anion Gap 27.00001 mmol/L (3-11); CO2 < 5.0 mmol/L (21.0-32.0); Glucose 590 mg/dL (74-106)
[2020-05-17] MEDS: dilTIAZem 25 MG/5 ML VIAL 5 MG IVP (17:37)
[2020-05-17 18:22] LABS: O2 Sat (Venous) 93 %; pO2 (Venous) 83 mmHg
[2020-05-17 18:29] LABS: pCO2 (Venous) 18 mmHg (41-51)
[2020-05-17 19:26] LABS: O2 Sat (Venous) 78 %; pCO2 (Venous) 22 mmHg (41-51); pO2 (Venous) 51 mmHg
[2020-05-17 19:38] LABS: Magnesium 2.3 mg/dL (1.8-2.4)
[2020-05-17 19:40] LABS: BUN 22 mg/dL (7-18); CREATININE 1.25 mg/dL (0.55-1.02); Calcium 7.9 mg/dL (8.5-10.1); Chloride 108 mmol/L (98-107); Estimated GFR 54.64 (mL/min/1.73m2); Potassium 5.3 mmol/L (3.5-5.1); Sodium 141 mmol/L (136-145)
--- NOTE | 2020-05-17 19:41 | HPE_ITS ---
Date of service: 05/17/20 Time of Service: 19:41 Assessment and Plan Assessment and plan (1) DKA (diabetic ketoacidoses): Start date: 05/17/20 Status: Acute Assessment and plan: This is a 19-year-old lady with known type 1 diabetes who has not been taking her insulin recently because of social stressors and appears to have a poor understanding of her diabetes. She has a history of Crohn's disease with no recent GI symptoms or recent evidence of infection though she had elevated WBC and was covered with Zosyn while awaiting urine and blood cultures to return. She was treated acutely for DKA per the [facility] protocol with monitoring throughout the night every 2 hours with slow clearing of mentation but often resting comfortably. She was not hemodynamically unstable with her PSVT on a diltiazem drip. Every 2 hour monitoring of lab and adjustment of therapy were very unstable medical condition requiring additional time of 60 minutes with medical care monitoring and medical decision making throughout the night/earlymorning. Overall patient's numbers are slowly trending to glycemic control but she had persistent acidosis and required some bicarb and adjustment of IV fluids. Potassium was slightly elevated with potassium infusion discontinued and normal saline being used throughout the night. I did consult general surgery for central line early in the night and she was aware that this bleed may occur and decided to be available but hold on central line placement as long as peripheral IV lines were available. Qualifiers: Diabetes mellitus type: other specified (including CARA) Diabetes mellitus complication detail: without coma Qualified Code(s): E13.10 - Other specified diabetes mellitus with ketoacidosis without coma (2) Paroxysmal SVT (supraventricular tachycardia): Start date: 05/17/20 Status: Acute Assessment and plan: Patient had recurrent PSVT requiring IV diltiazem as a maximum dose which was continued throughout the night with patient having only short bursts of SVT and mostly sinus tachycardia. No additional medical therapy was warranted. (3) Type 1 diabetes mellitus without complication: Status: Chronic Assessment and plan: Patient has had insulin-dependent diabetes mellitus since 14 years of age and did have a recent which may have complicated her metabolic issues. She apparently was not on insulin but unknown time prior to admission. She will need diabetic education once her DKA clears. History of Present Illness History of Present Illness Chief Complaint: Change in mental status Narrative: This is a 19-year-old female patient with known insulin-dependent diabetes aubree itus that she was 14 years old who recently gave to her child 3 months ago with the being bottle fed. 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 Because of her change in behavior EMS was called the patient was brought to the ED appearing confused, tachycardic and Kussmaul breathing with the patient not aware that she was at [facility] but thought she was at [facility] after some IV fluids and some clearing of mentation. At the time I saw the patient he was still confused quite aware of which hospital she was and and stated she was very thirsty. In the ED she was pulling out her IVs and try to get out of bed required one-on-one care but in the ICU she was more cooperative but still fidgety. There is no history of recent fever, recent falls or injury and also has a history of Crohn's disease she has had no recent change in bowel habits. She is not on medical therapy for this problem. Reviewing the ED record the patient was severely acidotic and in DKA with severe hyperglycemia for unknown period of time off insulin and had no focus of infection. She did go into reentrant SVT several times requiring adenosine which would break into sinus rhythm for a short period of time and then return to SVT. She was eventually placed on IV diltiazem with a bolus of 5 mg/hour and at the time I saw the patient she was in sinus tachycardia with short bursts of PSVT on the maximum dose of diltiazem of 15 mg/hour. The patient's only complaint at the time I saw her was that she was very thirsty and wanted water. 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 Sexually active: Yes Do you think of yourself as: straight/heterosexual Current gender identity: female Do you feel safe in your relationship?: Yes Female Reproductive History Menstrual Age of Menarche: 10 Duration of menses: 3-5 days control method: pills History History 1 Para 0 Hx # Term Pregnancies 0 Multiple births 0 Hx # Pregnancies 0 Ectopic pregnancies 0 AB induced 0 Hx Number of Living Children 0 AB spontaneous 0 Meds Home Medications and Allergies Home Medications Medication Instructions Recorded Confirmed Type insulin detemir U-100 100 unit/mL 30 unit SUBCUT .QHS ml 09/26/19 05/17/20 History (3 mL) subcutaneous pen insulin lispro 100 unit/mL 1 unit SC .COMPLEX ml 09/26/19 05/17/20 History subcutaneous pen Allergies Allergy/AdvReac Type Severity Reaction Status Date / Time No Known Allergies Allergy Verified 05/17/20 17:24 Exam Narrative Exam Narrative: General: Patient appears appropriate for age, very confused with eyes wide open and not focusing repeating herself that she was very thirsty. She was unaware of her surroundings was oriented to self but not time or purpose. He was very fidgety. She appeared in moderate distress. HEENT: Normocephalic, eyes with pupils dilated but equal and round, reactive to light symmetrically, extraocular movement intact and sclera anicteric. Oropharynx with poor dentition and very dry mucosa. External ears and nose normal. Neck: Supple without JVD. Back: Stooped posture with no CVA tenderness. Lungs: Clear to auscultation percussion. Breast: Exam deferred. Heart: Tachycardic rate with normal rhythm and occasional extrasystole, no appreciated murmurs or gallops. Abdomen: Slightly obese, soft and nontender to palpation with no focalizing guarding. No palpable hepatosplenomegaly. No palpable masses. Genitalia/rectal: Exam deferred. Coello intact. Extremities: Without clubbing, cyanosis or edema with palpable pulses intact and joints normal. Skin: Pale, cool and dry with no rash noted. Neuro: Cranial nerves II through XII grossly intact, no focal motor deficits. Psych: Oriented to person place and time except for occasionally knowing yourself that you surrounded by healthcare workers. Delusional thought processes with remote and recent memory unable to be tested with patient is confused today and DKA. Results Imaging Imaging Studies: Exam: CT Head Without Contrast Exam date and time: 05/17/2020 4:24 PM Age: 19 years old Clinical indication: Altered mental status/memory loss; Patient HX: Elevated glucose TECHNIQUE: Imaging protocol: Computed tomography of the head without contrast. COMPARISON: No relevant prior studies available. FINDINGS: No evidence of hemorrhage. No mass effect. No acute intracranial abnormality. IMPRESSION: No evidence of acute intracranial process. Dictated and Authenticated by: Tyree Bailey MD. Exam: XR Chest, 2 Views Exam date and time: 05/17/2020 4:30 PM Age: 19 years old Clinical indication: Patient HX: AMS, elevated glucose TECHNIQUE: Imaging protocol: XR of the chest Views: 2 views. COMPARISON: No relevant prior studies available. FINDINGS: The lung weiss are clear bilaterally. No focal pulmonary consolidation is present. The cardiac silhouette is within normal limits. The costophrenic angles are sharp. The bony structures appear unremarkable. IMPRESSION: No evidence of acute cardiopulmonary disease. Dictated and Authenticated by: Tyree Bailey MD. Labs Result diagrams: 05/17/20 15:35 05/18/20 03:15 Labs: Laboratory Results - last 24 hr 05/17/20 05/17/20 05/17/20 15:35 15:35 15:35 WBC 43.20 H* RBC 5.28 H Hgb 14.6 Hct 49.0 H MCV 92.8 MCH 27.7 MCHC 29.8 L RDW 13.6 Plt Count 628 H MPV 11.2 H Immature Gran % See Differential Neutrophils % 73.0 Band Neutrophils % 9 Lymphocytes % 9.0 Atypical Lymphs % 2 Monocytes % 3.0 Eosinophils % 0.0 Basophils % 0.0 Metamyelocytes % 2 Myelocytes % 2 Nucleated RBC % 0 Absolute Neutrophils 35.42 H Absolute Lymphocytes 4.75 H Absolute Monocytes 1.30 H Absolute Eosinophils 0.00 Absolute Basophils 0.00 RBC Morphology Normal VBG pH VBG pCO2 VBG pO2 VBG HCO3 VBG Total CO2 VBG O2 Saturation VBG Base Excess VBG Lactate 5.5 H* Sodium 139 Potassium 4.2 Chloride 103 Carbon Dioxide 5.2 L Anion Gap 30.8 H BUN 24 H Creatinine 1.72 H Estimated GFR/1.73 m2 37.80 Glucose 642 H* Calcium 8.6 Phosphorus Magnesium Total Bilirubin 0.3 AST 20 ALT 17 Alkaline Phosphatase 168 H Troponin I Total Protein 7.9 Albumin 3.7 Urine Color Urine Clarity Urine pH Ur Specific [place] Urine Protein Urine Ketones Urine Blood Urine Nitrite Urine Bilirubin Urine Urobilinogen Ur Leukocyte Esterase Urine RBC Urine WBC Ur Epithelial Cells Urine Crystals Urine Bacteria Urine Casts Urine Mucus Ur Culture Indicated? Urine Glucose Urine Opiates Screen Urine Methadone Screen Ur Barbiturates Screen Ur Tricyclics Screen Ur Amphetamines Screen U Benzodiazepines Scrn Urine Cocaine Screen Ur THC Screen 05/17/20 05/17/20 05/17/20 15:35 15:35 15:35 WBC RBC Hgb Hct MCV MCH MCHC RDW Plt Count MPV Immature Gran % Neutrophils % Band Neutrophils % Lymphocytes % Atypical Lymphs % Monocytes % Eosinophils % Basophils % Metamyelocytes % Myelocytes % Nucleated RBC % Absolute Neutrophils Absolute Lymphocytes Absolute Monocytes Absolute Eosinophils Absolute Basophils RBC Morphology VBG pH < 6.77 L* VBG pCO2 25 L VBG pO2 67 VBG HCO3 Not Applicable VBG Total CO2 Not Applicable VBG O2 Saturation 84 VBG Base Excess Not Applicable VBG Lactate Sodium Potassium Chloride Carbon Dioxide Anion Gap BUN Creatinine Estimated GFR/1.73 m2 Glucose Calcium Phosphorus 9.4 H Magnesium 2.7 H Total Bilirubin AST ALT Alkaline Phosphatase Troponin I < 0.05 Total Protein Albumin Urine Color Urine Clarity Urine pH Ur Specific [place] Urine Protein Urine Ketones Urine Blood Urine Nitrite Urine Bilirubin Urine Urobilinogen Ur Leukocyte Esterase Urine RBC Urine WBC Ur Epithelial Cells Urine Crystals Urine Bacteria Urine Casts Urine Mucus Ur Culture Indicated? Urine Glucose Urine Opiates Screen Urine Methadone Screen Ur Barbiturates Screen Ur Tricyclics Screen Ur Amphetamines Screen U Benzodiazepines Scrn Urine Cocaine Screen Ur THC Screen 05/17/20 05/17/20 05/17/20 15:50 15:50 17:00 WBC RBC Hgb Hct MCV MCH MCHC RDW Plt Count MPV Immature Gran % Neutrophils % Band Neutrophils % Lymphocytes % Atypical Lymphs % Monocytes % Eosinophils % Basophils % Metamyelocytes % Myelocytes % Nucleated RBC % Absolute Neutrophils Absolute Lymphocytes Absolute Monocytes Absolute Eosinophils Absolute Basophils RBC Morphology VBG pH VBG pCO2 VBG pO2 VBG HCO3 VBG Total CO2 VBG O2 Saturation VBG Base Excess VBG Lactate 4.6 H* Sodium Potassium Chloride Carbon Dioxide Anion Gap BUN Creatinine Estimated GFR/1.73 m2 Glucose Calcium Phosphorus Magnesium Total Bilirubin AST ALT Alkaline Phosphatase Troponin I Total Protein Albumin Urine Color Yellow Urine Clarity Cloudy Urine pH 5.5 Ur Specific [place] >= 1.030 H Urine Protein >=300 H Urine Ketones >=160 H Urine Blood Moderate H Urine Nitrite Negative Urine Bilirubin Small H Urine Urobilinogen 0.2 Ur Leukocyte Esterase Negative Urine RBC 0-2 Urine WBC 0-2 Ur Epithelial Cells Negative Urine Crystals Negative Urine Bacteria Rare Urine Casts 0-2 hyaline Urine Mucus Negative Ur Culture Indicated? No Urine Glucose 500 H Urine Opiates Screen Negative Urine Methadone Screen Negative Ur Barbiturates Screen Negative Ur Tricyclics Screen Negative Ur Amphetamines Screen Negative U Benzodiazepines Scrn Negative Urine Cocaine Screen Negative Ur THC Screen Positive A 05/17/20 05/17/20 05/17/20 17:00 18:12 19:15 WBC RBC Hgb Hct MCV MCH MCHC RDW Plt Count MPV Immature Gran % Neutrophils % Band Neutrophils % Lymphocytes % Atypical Lymphs % Monocytes % Eosinophils % Basophils % Metamyelocytes % Myelocytes % Nucleated RBC % Absolute Neutrophils Absolute Lymphocytes Absolute Monocytes Absolute Eosinophils Absolute Basophils RBC Morphology VBG pH < 6.77 L* < 6.77 L* VBG pCO2 18 L* 22 L VBG pO2 83 51 VBG HCO3 Not Applicable Not Applicable VBG Total CO2 Not Applicable Not Applicable VBG O2 Saturation 93 78 VBG Base Excess Not Applicable Not Applicable VBG Lactate Sodium 140 Potassium 4.9 Chloride 108 H Carbon Dioxide < 5.0 L* Anion Gap 27.41903 H BUN 25 H Creatinine 1.52 H Estimated GFR/1.73 m2 43.60 Glucose 590 H* Calcium 8.0 L Phosphorus Magnesium Total Bilirubin AST ALT Alkaline Phosphatase Troponin I Total Protein Albumin Urine Color Urine Clarity Urine pH Ur Specific [place] Urine Protein Urine Ketones Urine Blood Urine Nitrite Urine Bilirubin Urine Urobilinogen Ur Leukocyte Esterase Urine RBC Urine WBC Ur Epithelial Cells Urine Crystals Urine Bacteria Urine Casts Urine Mucus Ur Culture Indicated? Urine Glucose Urine Opiates Screen Urine Methadone Screen Ur Barbiturates Screen Ur Tricyclics Screen Ur Amphetamines Screen U Benzodiazepines Scrn Urine Cocaine Screen Ur THC Screen 05/17/20 19:15 WBC RBC Hgb Hct MCV MCH MCHC RDW Plt Count MPV Immature Gran % Neutrophils % Band Neutrophils % Lymphocytes % Atypical Lymphs % Monocytes % Eosinophils % Basophils % Metamyelocytes % Myelocytes % Nucleated RBC % Absolute Neutrophils Absolute Lymphocytes Absolute Monocytes Absolute Eosinophils Absolute Basophils RBC Morphology VBG pH VBG pCO2 VBG pO2 VBG HCO3 VBG Total CO2 VBG O2 Saturation VBG Base Excess VBG Lactate Sodium Potassium Chloride Carbon Dioxide Anion Gap BUN Creatinine Estimated GFR/1.73 m2 Glucose Calcium Phosphorus Magnesium 2.3 Total Bilirubin AST ALT Alkaline Phosphatase Troponin I Total Protein Albumin Urine Color Urine Clarity Urine pH Ur Specific [place] Urine Protein Urine Ketones Urine Blood Urine Nitrite Urine Bilirubin Urine Urobilinogen Ur Leukocyte Esterase Urine RBC Urine WBC Ur Epithelial Cells Urine Crystals Urine Bacteria Urine Casts Urine Mucus Ur Culture Indicated? Urine Glucose Urine Opiates Screen Urine Methadone Screen Ur Barbiturates Screen Ur Tricyclics Screen Ur Amphetamines Screen U Benzodiazepines Scrn Urine Cocaine Screen Ur THC Screen Last Vital Signs Temp 36.7 C 05/17/20 18:48 Pulse 91 H 05/17/20 18:48 Resp 38 H 05/17/20 18:48 BP 134/78 05/17/20 18:48 Pulse Ox 100 05/17/20 18:48 COVID-19 Screening Have you,or household,traveled outside [place] in last 14 days?: No Had IN PERSON contact w/suspected or confirmed C-19 person: No
[2020-05-17 19:43] LABS: Anion Gap 28.00001 mmol/L (3-11); CO2 < 5.0 mmol/L (21.0-32.0); Glucose 536 mg/dL (74-106)
[2020-05-17] MEDS: Normal Saline 1,000 ML 250 ML IV (20:33)
[2020-05-17] MEDS: PIPERACILLIN/TAZO 3.375 GM in Normal Saline 50 ML IVPB (20:36)
[2020-05-17 21:32] LABS: Lactate 2.8 mmol/L (0.6-1.4)
[2020-05-17 21:40] LABS: BUN 22 mg/dL (7-18); CREATININE 1.25 mg/dL (0.55-1.02); Calcium 8.1 mg/dL (8.5-10.1); Chloride 108 mmol/L (98-107); Estimated GFR 54.64 (mL/min/1.73m2); Glucose 478 mg/dL (74-106); Magnesium 2.2 mg/dL (1.8-2.4); Potassium 5.8 mmol/L (3.5-5.1); Sodium 140 mmol/L (136-145)
[2020-05-17 21:46] LABS: Anion Gap 27.00001 mmol/L (3-11); CO2 < 5.0 mmol/L (21.0-32.0)
[2020-05-17] MEDS: LORazepam 1 MG TAB PO (21:53)
[2020-05-17 23:39] LABS: BUN 20 mg/dL (7-18); CREATININE 1.09 mg/dL (0.55-1.02); Calcium 7.5 mg/dL (8.5-10.1); Chloride 111 mmol/L (98-107); Glucose 342 mg/dL (74-106); Magnesium 1.9 mg/dL (1.8-2.4); Potassium 5.5 mmol/L (3.5-5.1); Sodium 140 mmol/L (136-145)
[2020-05-17 23:45] LABS: Anion Gap 24.00001 mmol/L (3-11)
[2020-05-18] VITALS (98 sets, daily range): BP systolic 109–184; BP diastolic 64–157; PULSE 94–134; RESP 16–44; TEMP 35.6–37.1; O2SAT 97–100
[2020-05-18] MEDS: dilTIAZem 125 MG in Normal Saline 100 ML 15 MG IV (00:10)
[2020-05-18] MEDS: Normal Saline 1,000 ML 250 ML IV (00:42)
[2020-05-18] MEDS: Sodium Bicarbonate 50 MEQ/50 ML SYR IVP ×2 (00:42→02:46)
[2020-05-18] MEDS: Heparin 5,000 UNITS/ML VIAL 5000 UNITS SC ×4 (00:43→22:30)
[2020-05-18 01:37] LABS: BUN 18 mg/dL (7-18); CREATININE 1.01 mg/dL (0.55-1.02); Calcium 8.3 mg/dL (8.5-10.1); Chloride 113 mmol/L (98-107); Glucose 231 mg/dL (74-106); Potassium 5.1 mmol/L (3.5-5.1); Sodium 143 mmol/L (136-145)
[2020-05-18 01:39] LABS: Anion Gap 25.00001 mmol/L (3-11)
[2020-05-18] MEDS: LORazepam 0.5 MG TAB PO (02:03)
[2020-05-18] MEDS: Acetaminophen 325 MG TAB 650 MG PO (02:04)
[2020-05-18] MEDS: DEXTROSE 5%-0.45% SALINE 1,000 ML 250 ML IV (02:30)
[2020-05-18] MEDS: PIPERACILLIN/TAZO 3.375 GM in Normal Saline 50 ML IVPB ×4 (02:46→20:57)
[2020-05-18 04:06] LABS: Anion Gap 26.5 mmol/L (3-11); BUN 17 mg/dL (7-18); CO2 5.5 mmol/L (21.0-32.0); CREATININE 1.03 mg/dL (0.55-1.02); Calcium 8.3 mg/dL (8.5-10.1); Chloride 114 mmol/L (98-107); Glucose 206 mg/dL (74-106); Potassium 4.5 mmol/L (3.5-5.1); Sodium 146 mmol/L (136-145)
[2020-05-18 04:14] LABS: Magnesium 1.9 mg/dL (1.8-2.4)
[2020-05-18 06:33] LABS: Abs Immature Grans 1.04 10^3/uL (0.0-0.06); HGB 14.7 g/dL (11.2-15.7); MCH 27.8 pg (27.0-33.0); MCHC 32.7 % (32.0-36.0); MCV 85.1 fL (80-95); MPV 10.5 fL (8.0-11.0); Nucleated RBC 0 %; Platelet Count 358 10^3/uL (130-400); RBC 5.29 10^6/uL (3.93-5.22); RDW 13.6 % (11.7-14.6); RDW-SD 41.6 fL; WBC 18.24 10^3/uL (4.4-10.8)
[2020-05-18] MEDS: DEXTROSE 5%-LACTATED RINGERS 1,000 ML 250 ML IV (06:51)
[2020-05-18] MEDS: INSULIN REGULAR IN 0.9 % NACL 100 UNIT/100 ML BAG 8 UNIT IV (06:51)
[2020-05-18 06:53] LABS: ALT 18 U/L (14-59); AST 22 U/L (15-37); Albumin 3.2 g/dL (3.4-5.0); Alkaline Phosphatase 129 U/L (46-116); Anion Gap 26.9 mmol/L (3-11); BUN 16 mg/dL (7-18); Bilirubin, Total 0.5 mg/dL (0.2-1.0); CO2 5.1 mmol/L (21.0-32.0); CREATININE 1.21 mg/dL (0.55-1.02); Calcium 8.3 mg/dL (8.5-10.1); Chloride 111 mmol/L (98-107); Estimated GFR 56.73 (mL/min/1.73m2); Glucose 228 mg/dL (74-106); Magnesium 1.5 mg/dL (1.8-2.4); PHOSPHORUS < 2.0 mg/dL (2.6-4.7); Potassium 3.4 mmol/L (3.5-5.1); Sodium 143 mmol/L (136-145); Total Protein 7.2 g/dL (6.4-8.2)
[2020-05-18 06:54] LABS: HCO3 (Venous) 6 mmol/L (23-28); O2 Sat (Venous) 90 %; TCO2 (Venous) 5 mmol/L (24-29); pO2 (Venous) 53 mmHg
[2020-05-18 06:56] LABS: Lactate 1.1 mmol/L (0.6-1.4)
[2020-05-18 06:57] LABS: pH (Venous) 7.11 (7.31-7.41)
[2020-05-18 06:58] LABS: pCO2 (Venous) 17 mmHg (41-51)
[2020-05-18 07:33] LABS: Absolute Lymphocyte Count 1.09 10^3/uL (1.2-3.4); Absolute Monocyte Count 0.91 10^3/uL (0.1-0.8); Absolute Neutrophil Count 15.14 10^3/uL (1.2-6.7); Atypical Lymphocytes % 3; Bands % 13; Diff Comment Manual Differential; Metamyelocytes % 3; Myelocytes % 3; RBC Morphology Normal
--- NOTE | 2020-05-18 08:01 | NUR.NOTE ---
Diltiazem drip decreased to 10mg/hr. for heart rate of 115, and BP OF 150/82.Nursing Note:
--- NOTE | 2020-05-18 08:17 | PDOC.CMIN ---
- If Service Date Differs Date of service: 05/18/20 Time of Service: 14:23 Care Management Initial Assess REASON FOR HOSPITALIZATION:: DKA, PSVT PAST MEDICAL HISTORY/PAST SURGICAL HISTORY:: Crohn disease, Type 1 DM PREVIOUS FUNCTIONAL STATUS/SOCIAL/FAMILY SUPPORTS:: Monica resides in [place], [place] with her fiance and their infant daughter. 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 She is independent at baseline in the community. CURRENT FUNCTIONAL STATUS:: Monica is sleeping; RN in room with her. Per RN reports, Monica is showing improvement today; CM will meet for full assessment when Monica is able to fully participate. ADVANCE DIRECTIVES:: None on file at [facility]. Has patient been provided with info about the portal/API?: Yes Did the patient sign up for the portal?: No CODE STATUS:: Full Code INSURANCE COVERAGE / FINANCIAL ISSUES:: BC/BS coverage through employer. CURRENT HOME/COMMUNITY SERVICES/EQUIPMENT:: [facility] [place]: NICU support for infant daughter, Endocrinology. PRIMARY CARE PHYSICIAN:: Ashvin Castillo-will refer to new PCP per tele provider protocol. POTENTIAL DISCHARGE NEEDS:: Diabetic education; follow up with PCP. PATIENT/FAMILY EDUCATION NEEDS:: Review discharge instructions, discuss Ask Me Three. ANTICIPATED BARRIERS TO DISCHARGE:: None identified. TRANSPORTATION:: Via private vehicle with family. PLAN:: Monica will return home when ready per MD. She will follow up with diabetic education, is likely to have new glucose monitor and new PCP assignment. CM continues to follow.
--- NOTE | 2020-05-18 08:27 | NUR.NOTE ---
BMP is drawn.Nursing Note:
[2020-05-18] MEDS: Normal Saline Flush 10 ML SYR IVP (08:33)
[2020-05-18 08:34] LABS: HCO3 (Venous) 6 mmol/L (23-28); pO2 (Venous) 131 mmHg
[2020-05-18 08:36] LABS: Lactate 0.9 mmol/L (0.6-1.4)
[2020-05-18 08:37] LABS: O2 Sat (Venous) > 99 %
[2020-05-18 08:39] LABS: pCO2 (Venous) 15 mmHg (41-51)
[2020-05-18] MEDS: POTASSIUM CHLORIDE/D5-0.45NACL 1,000 ML 250 MEQ IV ×4 (08:44→22:24)
[2020-05-18 08:46] LABS: Anion Gap 22.6 mmol/L (3-11); BUN 14 mg/dL (7-18); CO2 7.4 mmol/L (21.0-32.0); CREATININE 1.16 mg/dL (0.55-1.02); Calcium 8.7 mg/dL (8.5-10.1); Chloride 112 mmol/L (98-107); Estimated GFR 59.56 (mL/min/1.73m2); Glucose 223 mg/dL (74-106); Potassium 3.2 mmol/L (3.5-5.1); Sodium 142 mmol/L (136-145)
--- NOTE | 2020-05-18 09:03 | PGE_ITS ---
Date of Service Date of service: 05/18/20 Time of Service: 09:03 Assessment and Plan Assessment and plan (1) DKA (diabetic ketoacidoses): Status: Acute Assessment and plan: Severe DKA as evidenced by in measurable bicarbonate levels and pH less than 6.7 on admission. This appears to be resolving albeit slowly. pH is now up to 7.20 that is per VBG potassium remains low at 3.3 but she is receiving potassium boluses. Anion gap is down to 22 whereas it had been 30 on admission. Carbon dioxide is now up to 8 whereas it had been in measurable last night. Her procalcitonin is high at 6.9 but in the setting of DKA I am not sure that this represents infectious cause. As her leukocytosis is resolving quickly I doubt that this is infectious cause for DKA. From the history I gathered from her it sounds like she was just very sleepy and slept all day and did wake up till 2:00 in the afternoon at which point her blood sugars were reading high. I think she missed a couple doses of her insulin and this put her into DKA. Plan is to continue insulin drip until her anion gap closes at which point we can give her a bolus of her basal insulin along with short acting insulin and overlap this with her insulin drip until we can discontinue her insulin drip. For now we will continue insulin drip throughout the day until her anion gap resolves. Qualifiers: Diabetes mellitus complication detail: without coma Diabetes mellitus type: other specified (including CARA) Qualified Code(s): E13.10 - Other specified diabetes mellitus with ketoacidosis without coma (2) Paroxysmal SVT (supraventricular tachycardia): Status: Acute Assessment and plan: Her PSVT is probably secondary to her DKA at this point I think she can be weaned off the diltiazem drip. I do not feel that she needs to be started on any oral calcium channel or beta blockers. (3) Hypokalemia: Status: Acute Assessment and plan: We will start her on oral as well as IV potassium supplementation. (4) Hypomagnesemia: Status: Acute Assessment and plan: We will give both IV and oral supplementation (5) Leukocytosis, unspecified: Status: Acute Assessment and plan: Probably reactive leukocytosis secondary to her DKA. She is afebrile and has no obvious sources of infection. If her blood culture comes back no growth today that I will discontinue antibiotics. Subjective Subjective Interval history since last seen: Patient is a 19-year-old female type I diabetic since age of 14 who is recently G1, P1 who presented with lethargy and was found to be in DKA with severe metabolic acidosis. She was admitted last night by Dr. Regan Haile, decator operator. See his admission H&P for details. Patient experienced PSVT while in the emergency department requiring repeated dose adenosine as eventually put on diltiazem drip. This morning she is now sinus tachycardia with no recurrent SVT. She remains on insulin drip and is still in DKA but is improving. Her bicarbonate was unmeasurable last night and now her CO2 is up to 8 her anion gap is down to 22. Her leukocytosis which had been over 40,000 last night is down to 18,000. Blood cultures are pending at this time and she is currently on Zosyn although there appears to be no infectious source. CT of her head last night was negative and chest x-ray was negative for any acute pulmonary pathology. Patient is now waking up and requested to have the Coello catheter taken out. Her potassium overnight had climbed to as high as 5.[address] Haile stopped any potassium supplementation and now her potassium is down to 3.2 this morning and I have ordered a couple of potassium boluses and have re-added potassium to her IV fluids. Her glucose remains in the low to mid 200s and her insulin drip is down to 8 units an hour. We will continue to monitor her BMPs every 3 hours and the plan is to wean her off the diltiazem drip. Exam Narrative Exam Narrative: Young female lying in bed moaning and groaning but she does open her eyes and answers me coherently. HEENT is remarkable for very dry mucous membranes. Teeth appear to be in good repair I do not see any signs of gingivitis or ulcerations of the tongue or cheeks. Neck is supple nontender no JVD in fact the neck veins are very flat she has normal pulses although tachycardic and no cervical lymphadenopathy. Lungs are clear to auscultation Heart regular but tachycardic without appreciable murmur rub or gallop. Abdomen is nondistended normal active bowel sounds no palpable masses no organomegaly she has some diffuse tenderness but she is tender everywhere I touch her including when I tried to auscultate her chest she was complaining of discomfort. When I distract her she does not seem to have any rebound tenderness or guarding. Lower extremities without peripheral cyanosis or edema. Feet show no skin ulcerations. Examination of the arm she has a tattoo of her left upper arm. There is no open sores on her arms or hands or fingers. Examination of her torso she has abdominal striae to be expected after . Did not see sores over her buttocks or her back or chest or abdomen. Neuro exam appears to be intact although she is lethargic she is able to be aroused and answers my questions coherently. Pupils are equally round reactive to light and accommodation extra motions intact. No focal cranial nerve deficits and no focal motor or sensory deficits. Objective Last Vital Signs Temp 37 C 05/18/20 08:33 Pulse 115 H 05/18/20 07:53 Resp 22 05/18/20 07:53 BP 150/82 H 05/18/20 07:53 Pulse Ox 99 05/18/20 07:53 Laboratory Results - last 24 hr 05/17/20 05/17/20 05/17/20 15:35 15:35 15:35 WBC 43.20 H* RBC 5.28 H Hgb 14.6 Hct 49.0 H MCV 92.8 MCH 27.7 MCHC 29.8 L RDW 13.6 Plt Count 628 H MPV 11.2 H Immature Gran % See Differential Neutrophils % 73.0 Band Neutrophils % 9 Lymphocytes % 9.0 Atypical Lymphs % 2 Monocytes % 3.0 Eosinophils % 0.0 Basophils % 0.0 Metamyelocytes % 2 Myelocytes % 2 Nucleated RBC % 0 Absolute Neutrophils 35.42 H Absolute Lymphocytes 4.75 H Absolute Monocytes 1.30 H Absolute Eosinophils 0.00 Absolute Basophils 0.00 RBC Morphology Normal VBG pH VBG pCO2 VBG pO2 VBG HCO3 VBG Total CO2 VBG O2 Saturation VBG Base Excess VBG Lactate 5.5 H* Sodium 139 Potassium 4.2 Chloride 103 Carbon Dioxide 5.2 L Anion Gap 30.8 H BUN 24 H Creatinine 1.72 H Estimated GFR/1.73 m2 37.80 Glucose 642 H* Calcium 8.6 Phosphorus Magnesium Total Bilirubin 0.3 AST 20 ALT 17 Alkaline Phosphatase 168 H Troponin I Total Protein 7.9 Albumin 3.7 Urine Color Urine Clarity Urine pH Ur Specific [place] Urine Protein Urine Ketones Urine Blood Urine Nitrite Urine Bilirubin Urine Urobilinogen Ur Leukocyte Esterase Urine RBC Urine WBC Ur Epithelial Cells Urine Crystals Urine Bacteria Urine Casts Urine Mucus Ur Culture Indicated? Urine Glucose Urine Opiates Screen Urine Methadone Screen Ur Barbiturates Screen Ur Tricyclics Screen Ur Amphetamines Screen U Benzodiazepines Scrn Urine Cocaine Screen Ur THC Screen 05/17/20 05/17/20 05/17/20 15:35 15:35 15:35 WBC RBC Hgb Hct MCV MCH MCHC RDW Plt Count MPV Immature Gran % Neutrophils % Band Neutrophils % Lymphocytes % Atypical Lymphs % Monocytes % Eosinophils % Basophils % Metamyelocytes % Myelocytes % Nucleated RBC % Absolute Neutrophils Absolute Lymphocytes Absolute Monocytes Absolute Eosinophils Absolute Basophils RBC Morphology VBG pH < 6.77 L* VBG pCO2 25 L VBG pO2 67 VBG HCO3 Not Applicable VBG Total CO2 Not Applicable VBG O2 Saturation 84 VBG Base Excess Not Applicable VBG Lactate Sodium Potassium Chloride Carbon Dioxide Anion Gap BUN Creatinine Estimated GFR/1.73 m2 Glucose Calcium Phosphorus 9.4 H Magnesium 2.7 H Total Bilirubin AST ALT Alkaline Phosphatase Troponin I < 0.05 Total Protein Albumin Urine Color Urine Clarity Urine pH Ur Specific [place] Urine Protein Urine Ketones Urine Blood Urine Nitrite Urine Bilirubin Urine Urobilinogen Ur Leukocyte Esterase Urine RBC Urine WBC Ur Epithelial Cells Urine Crystals Urine Bacteria Urine Casts Urine Mucus Ur Culture Indicated? Urine Glucose Urine Opiates Screen Urine Methadone Screen Ur Barbiturates Screen Ur Tricyclics Screen Ur Amphetamines Screen U Benzodiazepines Scrn Urine Cocaine Screen Ur THC Screen 05/17/20 05/17/20 05/17/20 15:50 15:50 17:00 WBC RBC Hgb Hct MCV MCH MCHC RDW Plt Count MPV Immature Gran % Neutrophils % Band Neutrophils % Lymphocytes % Atypical Lymphs % Monocytes % Eosinophils % Basophils % Metamyelocytes % Myelocytes % Nucleated RBC % Absolute Neutrophils Absolute Lymphocytes Absolute Monocytes Absolute Eosinophils Absolute Basophils RBC Morphology VBG pH VBG pCO2 VBG pO2 VBG HCO3 VBG Total CO2 VBG O2 Saturation VBG Base Excess VBG Lactate 4.6 H* Sodium Potassium Chloride Carbon Dioxide Anion Gap BUN Creatinine Estimated GFR/1.73 m2 Glucose Calcium Phosphorus Magnesium Total Bilirubin AST ALT Alkaline Phosphatase Troponin I Total Protein Albumin Urine Color Yellow Urine Clarity Cloudy Urine pH 5.5 Ur Specific [place] >= 1.030 H Urine Protein >=300 H Urine Ketones >=160 H Urine Blood Moderate H Urine Nitrite Negative Urine Bilirubin Small H Urine Urobilinogen 0.2 Ur Leukocyte Esterase Negative Urine RBC 0-2 Urine WBC 0-2 Ur Epithelial Cells Negative Urine Crystals Negative Urine Bacteria Rare Urine Casts 0-2 hyaline Urine Mucus Negative Ur Culture Indicated? No Urine Glucose 500 H Urine Opiates Screen Negative Urine Methadone Screen Negative Ur Barbiturates Screen Negative Ur Tricyclics Screen Negative Ur Amphetamines Screen Negative U Benzodiazepines Scrn Negative Urine Cocaine Screen Negative Ur THC Screen Positive A 05/17/20 05/17/20 05/17/20 17:00 18:12 19:15 WBC RBC Hgb Hct MCV MCH MCHC RDW Plt Count MPV Immature Gran % Neutrophils % Band Neutrophils % Lymphocytes % Atypical Lymphs % Monocytes % Eosinophils % Basophils % Metamyelocytes % Myelocytes % Nucleated RBC % Absolute Neutrophils Absolute Lymphocytes Absolute Monocytes Absolute Eosinophils Absolute Basophils RBC Morphology VBG pH < 6.77 L* VBG pCO2 18 L* VBG pO2 83 VBG HCO3 Not Applicable VBG Total CO2 Not Applicable VBG O2 Saturation 93 VBG Base Excess Not Applicable VBG Lactate Sodium 140 141 Potassium 4.9 5.3 H Chloride 108 H 108 H Carbon Dioxide < 5.0 L* < 5.0 L* Anion Gap 27.36293 H 28.04010 H BUN 25 H 22 H Creatinine 1.52 H 1.25 H Estimated GFR/1.73 m2 43.60 54.64 Glucose 590 H* 536 H* Calcium 8.0 L 7.9 L Phosphorus Magnesium Total Bilirubin AST ALT Alkaline Phosphatase Troponin I Total Protein Albumin Urine Color Urine Clarity Urine pH Ur Specific [place] Urine Protein Urine Ketones Urine Blood Urine Nitrite Urine Bilirubin Urine Urobilinogen Ur Leukocyte Esterase Urine RBC Urine WBC Ur Epithelial Cells Urine Crystals Urine Bacteria Urine Casts Urine Mucus Ur Culture Indicated? Urine Glucose Urine Opiates Screen Urine Methadone Screen Ur Barbiturates Screen Ur Tricyclics Screen Ur Amphetamines Screen U Benzodiazepines Scrn Urine Cocaine Screen Ur THC Screen 05/17/20 05/17/20 05/17/20 19:15 19:15 21:20 WBC RBC Hgb Hct MCV MCH MCHC RDW Plt Count MPV Immature Gran % Neutrophils % Band Neutrophils % Lymphocytes % Atypical Lymphs % Monocytes % Eosinophils % Basophils % Metamyelocytes % Myelocytes % Nucleated RBC % Absolute Neutrophils Absolute Lymphocytes Absolute Monocytes Absolute Eosinophils Absolute Basophils RBC Morphology VBG pH < 6.77 L* VBG pCO2 22 L VBG pO2 51 VBG HCO3 Not Applicable VBG Total CO2 Not Applicable VBG O2 Saturation 78 VBG Base Excess Not Applicable VBG Lactate Sodium 140 Potassium 5.8 H Chloride 108 H Carbon Dioxide < 5.0 L* Anion Gap 27.78231 H BUN 22 H Creatinine 1.25 H Estimated GFR/1.73 m2 54.64 Glucose 478 H Calcium 8.1 L Phosphorus Magnesium 2.3 Total Bilirubin AST ALT Alkaline Phosphatase Troponin I Total Protein Albumin Urine Color Urine Clarity Urine pH Ur Specific [place] Urine Protein Urine Ketones Urine Blood Urine Nitrite Urine Bilirubin Urine Urobilinogen Ur Leukocyte Esterase Urine RBC Urine WBC Ur Epithelial Cells Urine Crystals Urine Bacteria Urine Casts Urine Mucus Ur Culture Indicated? Urine Glucose Urine Opiates Screen Urine Methadone Screen Ur Barbiturates Screen Ur Tricyclics Screen Ur Amphetamines Screen U Benzodiazepines Scrn Urine Cocaine Screen Ur THC Screen 05/17/20 05/17/20 05/17/20 21:20 21:20 23:05 WBC RBC Hgb Hct MCV MCH MCHC RDW Plt Count MPV Immature Gran % Neutrophils % Band Neutrophils % Lymphocytes % Atypical Lymphs % Monocytes % Eosinophils % Basophils % Metamyelocytes % Myelocytes % Nucleated RBC % Absolute Neutrophils Absolute Lymphocytes Absolute Monocytes Absolute Eosinophils Absolute Basophils RBC Morphology VBG pH VBG pCO2 VBG pO2 VBG HCO3 VBG Total CO2 VBG O2 Saturation VBG Base Excess VBG Lactate 2.8 H* Cancelled Sodium Potassium Chloride Carbon Dioxide Anion Gap BUN Creatinine Estimated GFR/1.73 m2 Glucose Calcium Phosphorus Magnesium 2.2 Total Bilirubin AST ALT Alkaline Phosphatase Troponin I Total Protein Albumin Urine Color Urine Clarity Urine pH Ur Specific [place] Urine Protein Urine Ketones Urine Blood Urine Nitrite Urine Bilirubin Urine Urobilinogen Ur Leukocyte Esterase Urine RBC Urine WBC Ur Epithelial Cells Urine Crystals Urine Bacteria Urine Casts Urine Mucus Ur Culture Indicated? Urine Glucose Urine Opiates Screen Urine Methadone Screen Ur Barbiturates Screen Ur Tricyclics Screen Ur Amphetamines Screen U Benzodiazepines Scrn Urine Cocaine Screen Ur THC Screen 05/17/20 05/17/20 05/18/20 23:20 23:20 01:20 WBC RBC Hgb Hct MCV MCH MCHC RDW Plt Count MPV Immature Gran % Neutrophils % Band Neutrophils % Lymphocytes % Atypical Lymphs % Monocytes % Eosinophils % Basophils % Metamyelocytes % Myelocytes % Nucleated RBC % Absolute Neutrophils Absolute Lymphocytes Absolute Monocytes Absolute Eosinophils Absolute Basophils RBC Morphology VBG pH VBG pCO2 VBG pO2 VBG HCO3 VBG Total CO2 VBG O2 Saturation VBG Base Excess VBG Lactate Sodium 140 143 Potassium 5.5 H 5.1 Chloride 111 H 113 H Carbon Dioxide < 5.0 L* < 5.0 L* Anion Gap 24.07854 H 25.99239 H BUN 20 H 18 Creatinine 1.09 H 1.01 Estimated GFR/1.73 m2 >= 60.00 >= 60.00 Glucose 342 H D 231 H D Calcium 7.5 L 8.3 L Phosphorus Magnesium 1.9 Total Bilirubin AST ALT Alkaline Phosphatase Troponin I Total Protein Albumin Urine Color Urine Clarity Urine pH Ur Specific [place] Urine Protein Urine Ketones Urine Blood Urine Nitrite Urine Bilirubin Urine Urobilinogen Ur Leukocyte Esterase Urine RBC Urine WBC Ur Epithelial Cells Urine Crystals Urine Bacteria Urine Casts Urine Mucus Ur Culture Indicated? Urine Glucose Urine Opiates Screen Urine Methadone Screen Ur Barbiturates Screen Ur Tricyclics Screen Ur Amphetamines Screen U Benzodiazepines Scrn Urine Cocaine Screen Ur THC Screen 05/18/20 05/18/20 05/18/20 01:20 03:15 03:15 WBC RBC Hgb Hct MCV MCH MCHC RDW Plt Count MPV Immature Gran % Neutrophils % Band Neutrophils % Lymphocytes % Atypical Lymphs % Monocytes % Eosinophils % Basophils % Metamyelocytes % Myelocytes % Nucleated RBC % Absolute Neutrophils Absolute Lymphocytes Absolute Monocytes Absolute Eosinophils Absolute Basophils RBC Morphology VBG pH VBG pCO2 VBG pO2 VBG HCO3 VBG Total CO2 VBG O2 Saturation VBG Base Excess VBG Lactate Sodium 146 H Potassium 4.5 Chloride 114 H Carbon Dioxide 5.5 L Anion Gap 26.5 H BUN 17 Creatinine 1.03 H Estimated GFR/1.73 m2 >= 60.00 Glucose 206 H Calcium 8.3 L Phosphorus Magnesium 2.0 1.9 Total Bilirubin AST ALT Alkaline Phosphatase Troponin I Total Protein Albumin Urine Color Urine Clarity Urine pH Ur Specific [place] Urine Protein Urine Ketones Urine Blood Urine Nitrite Urine Bilirubin Urine Urobilinogen Ur Leukocyte Esterase Urine RBC Urine WBC Ur Epithelial Cells Urine Crystals Urine Bacteria Urine Casts Urine Mucus Ur Culture Indicated? Urine Glucose Urine Opiates Screen Urine Methadone Screen Ur Barbiturates Screen Ur Tricyclics Screen Ur Amphetamines Screen U Benzodiazepines Scrn Urine Cocaine Screen Ur THC Screen 05/18/20 05/18/20 05/18/20 06:00 06:00 06:48 WBC 18.24 H D RBC 5.29 H Hgb 14.7 Hct 45.0 MCV 85.1 D MCH 27.8 MCHC 32.7 RDW 13.6 Plt Count 358 D MPV 10.5 Immature Gran % See Differential Neutrophils % 70.0 Band Neutrophils % 13 Lymphocytes % 3.0 Atypical Lymphs % 3 Monocytes % 5.0 Eosinophils % 0.0 Basophils % 0.0 Metamyelocytes % 3 Myelocytes % 3 Nucleated RBC % 0 Absolute Neutrophils 15.14 H Absolute Lymphocytes 1.09 L Absolute Monocytes 0.91 H Absolute Eosinophils 0.00 Absolute Basophils 0.00 RBC Morphology Normal VBG pH 7.11 L* VBG pCO2 17 L* VBG pO2 53 VBG HCO3 6 L VBG Total CO2 5 L VBG O2 Saturation 90 VBG Base Excess < -15 L VBG Lactate Sodium 143 Potassium 3.4 L D Chloride 111 H Carbon Dioxide 5.1 L Anion Gap 26.9 H BUN 16 Creatinine 1.21 H Estimated GFR/1.73 m2 56.73 Glucose 228 H Calcium 8.3 L Phosphorus < 2.0 L Magnesium 1.5 L Total Bilirubin 0.5 AST 22 ALT 18 Alkaline Phosphatase 129 H Troponin I Total Protein 7.2 Albumin 3.2 L Urine Color Urine Clarity Urine pH Ur Specific [place] Urine Protein Urine Ketones Urine Blood Urine Nitrite Urine Bilirubin Urine Urobilinogen Ur Leukocyte Esterase Urine RBC Urine WBC Ur Epithelial Cells Urine Crystals Urine Bacteria Urine Casts Urine Mucus Ur Culture Indicated? Urine Glucose Urine Opiates Screen Urine Methadone Screen Ur Barbiturates Screen Ur Tricyclics Screen Ur Amphetamines Screen U Benzodiazepines Scrn Urine Cocaine Screen Ur THC Screen 05/18/20 05/18/20 05/18/20 06:48 07:28 07:28 WBC RBC Hgb Hct MCV MCH MCHC RDW Plt Count MPV Immature Gran % Neutrophils % Band Neutrophils % Lymphocytes % Atypical Lymphs % Monocytes % Eosinophils % Basophils % Metamyelocytes % Myelocytes % Nucleated RBC % Absolute Neutrophils Absolute Lymphocytes Absolute Monocytes Absolute Eosinophils Absolute Basophils RBC Morphology VBG pH 7.20 L VBG pCO2 15 L* VBG pO2 131 VBG HCO3 6 L VBG Total CO2 VBG O2 Saturation > 99 VBG Base Excess < -15 L VBG Lactate 1.1 Sodium 142 Potassium 3.2 L Chloride 112 H Carbon Dioxide 7.4 L Anion Gap 22.6 H BUN 14 Creatinine 1.16 H Estimated GFR/1.73 m2 59.56 Glucose 223 H Calcium 8.7 Phosphorus Magnesium Total Bilirubin AST ALT Alkaline Phosphatase Troponin I Total Protein Albumin Urine Color Urine Clarity Urine pH Ur Specific [place] Urine Protein Urine Ketones Urine Blood Urine Nitrite Urine Bilirubin Urine Urobilinogen Ur Leukocyte Esterase Urine RBC Urine WBC Ur Epithelial Cells Urine Crystals Urine Bacteria Urine Casts Urine Mucus Ur Culture Indicated? Urine Glucose Urine Opiates Screen Urine Methadone Screen Ur Barbiturates Screen Ur Tricyclics Screen Ur Amphetamines Screen U Benzodiazepines Scrn Urine Cocaine Screen Ur THC Screen 05/18/20 07:28 WBC RBC Hgb Hct MCV MCH MCHC RDW Plt Count MPV Immature Gran % Neutrophils % Band Neutrophils % Lymphocytes % Atypical Lymphs % Monocytes % Eosinophils % Basophils % Metamyelocytes % Myelocytes % Nucleated RBC % Absolute Neutrophils Absolute Lymphocytes Absolute Monocytes Absolute Eosinophils Absolute Basophils RBC Morphology VBG pH VBG pCO2 VBG pO2 VBG HCO3 VBG Total CO2 VBG O2 Saturation VBG Base Excess VBG Lactate 0.9 Sodium Potassium Chloride Carbon Dioxide Anion Gap BUN Creatinine Estimated GFR/1.73 m2 Glucose Calcium Phosphorus Magnesium Total Bilirubin AST ALT Alkaline Phosphatase Troponin I Total Protein Albumin Urine Color Urine Clarity Urine pH Ur Specific [place] Urine Protein Urine Ketones Urine Blood Urine Nitrite Urine Bilirubin Urine Urobilinogen Ur Leukocyte Esterase Urine RBC Urine WBC Ur Epithelial Cells Urine Crystals Urine Bacteria Urine Casts Urine Mucus Ur Culture Indicated? Urine Glucose Urine Opiates Screen Urine Methadone Screen Ur Barbiturates Screen Ur Tricyclics Screen Ur Amphetamines Screen U Benzodiazepines Scrn Urine Cocaine Screen Ur THC Screen
[2020-05-18 09:08] LABS: Procalcitonin 6.9 ng/mL
--- NOTE | 2020-05-18 09:22 | NUR.NOTE ---
At 08:00 RN SNPP messages MD and requests orders reqarding upcoming BMP draws, changing maintenance fluids to include Potassium since patient's K was 3.4, inquiring if Diltiazem drip could be stopped, and inquiring if melchor could be dc'd.Nursing Note:
[2020-05-18] MEDS: POTASSIUM CHLORIDE 20 MEQ/100 ML BAG 50 MEQ IVPB ×4 (09:27→20:57)
[2020-05-18 10:13] LABS: CO2 < 5.0 mmol/L (21.0-32.0)
[2020-05-18 10:13] LABS: CO2 < 5.0 mmol/L (21.0-32.0)
[2020-05-18] MEDS: MAGNESIUM SULFATE 4 GM/100 ML BAG IVPB (10:14)
--- NOTE | 2020-05-18 10:19 | PHA.REVIEW ---
Pharmacy Admission Review - Admission Clinical Review (Last Reviewed 05/18/20 @ 05:42 by Regan Haile) DKA (diabetic ketoacidoses) (Acute) Paroxysmal SVT (supraventricular tachycardia) (Acute) No Known Allergies Allergy (Verified 05/17/20 17:24) Weight 82.7 kg - Renal Dosing Renal Dosing: BUN 14 mg/dL (7-18) 05/18/20 07:28 Creatinine 1.16 mg/dL (0.55-1.02) H 05/18/20 07:28 Medications needing adjustments: Reviewed (Crcl ~75.2 mL/min current meds okay.) - Anticoagulation Anticoagulation: Hgb 14.7 g/dL (11.2-15.7) 05/18/20 06:00 Hct 45.0 % (36.0-46.0) 05/18/20 06:00 Plt Count 358 10^3/uL (130-400) D 05/18/20 06:00 Creatinine 1.16 mg/dL (0.55-1.02) H 05/18/20 07:28 DVT Prohphylaxis: Reviewed Medications: Heparin - Opiate Usage Evaluate Pain Scale/Pains Meds: N/A - Relevant Labs Sodium 142 mmol/L (136-145) 05/18/20 07:28 Potassium 3.2 mmol/L (3.5-5.1) L 05/18/20 07:28 Chloride 112 mmol/L (98-107) H 05/18/20 07:28 Phosphorus < 2.0 mg/dL (2.6-4.7) L 05/18/20 06:00 Magnesium 1.5 mg/dL (1.8-2.4) L 05/18/20 06:00 Electrolytes, C-Reactive P, ESR: Reviewed (IV mag and K+ replacement ordered, also K+ in IVFS) - DM Control DM Control: Glucose 223 mg/dL (74-106) H 05/18/20 07:28 Finger Stick Blood Glucose 198 Finger Stick Blood Glucose 207 Finger Stick Blood Glucose 222 Finger Stick Blood Glucose 193 Finger Stick Blood Glucose 223 Finger Stick Blood Glucose 236 Insulin Dosing: Reviewed (improved since admission, pt is still on an insulin drip at 9 units an hour (per nursing)) - Heart Failure/OR Heart Failure/OR: Troponin I < 0.05 ng/mL (<0.06) 05/17/20 15:35 EF%, ISRA's, B-Blockers, Diuretics: N/A - BP Control BP Control: Blood Pressure [Right Arm] 150/92 Blood Pressure 158/93 Blood Pressure 150/92 Blood Pressure 150/82 Blood Pressure 140/91 Blood Pressure 162/99 If elevated: Reviewed (diltiazem drip currently paused, trying to titrate pt off this per nursing) - Qtc Review If Elevated: Reviewed (QTc 539 current meds okay, mag and K+ are low which also increases risk) - IV to PO Switch IV Medications: Reviewed - Home Meds Home Med List reviewed: Reviewed Relevent Home Meds Not ordered & why?: insulin detemir and lispro (pt currently has insulin regular drip running) - Current meds Current Medication Order Review: Intervened (Talked to nursing about number of IV lines pt has and IV compatibility as there were many IVs scheduled for the same time this morning.) - Comments Comments/Follow Ups: Watch BP, BG, mag, K+, phos, SCr and for med changes (insulin changes, home meds, avoid QT porlonging meds) Antibiotic Activity - Pharmacy Antibiotic Review Pharmacy Antibiotic Activity: Reviewed, no change (zosyn ordered, blood cultures pending)
[2020-05-18 10:52] LABS: BUN 13 mg/dL (7-18); CREATININE 1.25 mg/dL (0.55-1.02); Calcium 8.5 mg/dL (8.5-10.1); Chloride 111 mmol/L (98-107); Estimated GFR 54.64 (mL/min/1.73m2); Glucose 207 mg/dL (74-106); Potassium 3.3 mmol/L (3.5-5.1); Sodium 141 mmol/L (136-145)
--- NOTE | 2020-05-18 11:12 | NUR.NOTE ---
Nursing Note: BMP is drawn at approximately 10:15 a.m.
--- NOTE | 2020-05-18 12:05 | NUR.NOTE ---
Patient has a pleasant conversation with her on the telephone.Nursing Note:
[2020-05-18] MEDS: Magnesium Oxide 400 MG TAB PO ×2 (12:58→22:30)
[2020-05-18] MEDS: Potassium Chloride 20 MEQ TABCR 40 MEQ PO (12:58)
[2020-05-18 13:27] LABS: Anion Gap 21.2 mmol/L (3-11); BUN 13 mg/dL (7-18); CO2 8.8 mmol/L (21.0-32.0); CREATININE 1.19 mg/dL (0.55-1.02); Chloride 111 mmol/L (98-107); Estimated GFR 57.83 (mL/min/1.73m2); Glucose 204 mg/dL (74-106); Potassium 3.7 mmol/L (3.5-5.1); Sodium 141 mmol/L (136-145)
[2020-05-18 13:28] LABS: Magnesium 2.8 mg/dL (1.8-2.4)
[2020-05-18] MEDS: Potassium Chloride 20 MEQ TABCR PO (13:43)
--- NOTE | 2020-05-18 14:58 | NUR.NOTE ---
RN speaks to MD and informs him blood sugar is 172. MD informs RN to continue with DKA protocol. Patient continues on 9 unit/hr of insulin.Nursing Note:
[2020-05-18 15:16] LABS: COVID-19 RT-PCR UVMMC Result Negative (Negative)
--- NOTE | 2020-05-18 16:03 | NUR.NOTE ---
DKA protocol indicates no change in insulin drip of 10.5 for decrease in blood glucose over the last hour of just 17 points.Nursing Note:
--- NOTE | 2020-05-18 16:18 | NUR.NOTE ---
16:00 BMP is drawn by Silith.IO.Nursing Note:
[2020-05-18 16:40] LABS: Anion Gap 18.3 mmol/L (3-11); BUN 12 mg/dL (7-18); CO2 10.7 mmol/L (21.0-32.0); CREATININE 1.25 mg/dL (0.55-1.02); Calcium 8.7 mg/dL (8.5-10.1); Chloride 113 mmol/L (98-107); Estimated GFR 54.64 (mL/min/1.73m2); Glucose 186 mg/dL (74-106); Potassium 3.1 mmol/L (3.5-5.1); Sodium 142 mmol/L (136-145)
[2020-05-18] MEDS: INSULIN REGULAR IN 0.9 % NACL 100 UNIT/100 ML BAG 10.5 UNIT IV (17:51)
[2020-05-18 21:01] LABS: Anion Gap 15.7 mmol/L (3-11); BUN 11 mg/dL (7-18); CO2 14.3 mmol/L (21.0-32.0); CREATININE 1.21 mg/dL (0.55-1.02); Calcium 9.3 mg/dL (8.5-10.1); Chloride 114 mmol/L (98-107); Estimated GFR 56.73 (mL/min/1.73m2); Glucose 91 mg/dL (74-106); Potassium 3.3 mmol/L (3.5-5.1); Sodium 144 mmol/L (136-145)
[2020-05-19] VITALS (37 sets, daily range): BP systolic 120–138; BP diastolic 55–98; PULSE 86–116; RESP 16–31; TEMP 36.5–36.8; O2SAT 96–100
[2020-05-19 00:45] LABS: Anion Gap 14.4 mmol/L (3-11); BUN 9 mg/dL (7-18); CO2 14.6 mmol/L (21.0-32.0); CREATININE 1.05 mg/dL (0.55-1.02); Calcium 8.9 mg/dL (8.5-10.1); Chloride 115 mmol/L (98-107); Glucose 98 mg/dL (74-106); Potassium 3.5 mmol/L (3.5-5.1); Sodium 144 mmol/L (136-145)
[2020-05-19] MEDS: POTASSIUM CHLORIDE/D5-0.45NACL 1,000 ML 250 MEQ IV ×2 (02:08→06:18)
[2020-05-19] MEDS: PIPERACILLIN/TAZO 3.375 GM in Normal Saline 50 ML IVPB ×2 (02:09→09:16)
[2020-05-19] MEDS: Heparin 5,000 UNITS/ML VIAL 5000 UNITS SC ×3 (06:05→20:56)
[2020-05-19 06:40] LABS: HCT 36.2 % (36.0-46.0); HGB 12.2 g/dL (11.2-15.7); MCHC 33.7 % (32.0-36.0); MCV 83.2 fL (80-95); MPV 10.7 fL (8.0-11.0); Platelet Count 285 10^3/uL (130-400); RBC 4.35 10^6/uL (3.93-5.22); RDW 14.2 % (11.7-14.6); RDW-SD 42.8 fL; WBC 6.76 10^3/uL (4.4-10.8)
[2020-05-19 06:51] LABS: ALT 14 U/L (14-59); AST 16 U/L (15-37); Albumin 2.5 g/dL (3.4-5.0); Alkaline Phosphatase 89 U/L (46-116); Anion Gap 16.3 mmol/L (3-11); BUN 9 mg/dL (7-18); Bilirubin, Total 0.2 mg/dL (0.2-1.0); CO2 11.7 mmol/L (21.0-32.0); CREATININE 1.17 mg/dL (0.55-1.02); Calcium 8.5 mg/dL (8.5-10.1); Chloride 114 mmol/L (98-107); Estimated GFR 58.97 (mL/min/1.73m2); Glucose 194 mg/dL (74-106); Potassium 3.2 mmol/L (3.5-5.1); Sodium 142 mmol/L (136-145); Total Protein 5.8 g/dL (6.4-8.2)
[2020-05-19] MEDS: INSULIN REGULAR IN 0.9 % NACL 100 UNIT/100 ML BAG 6.4 UNIT IV (07:45)
[2020-05-19] MEDS: Magnesium Oxide 400 MG TAB PO ×2 (09:16→20:54)
[2020-05-19] MEDS: Potassium Chloride 20 MEQ TABCR PO ×3 (09:16→20:55)
[2020-05-19] MEDS: Normal Saline Flush 10 ML SYR IVP (09:30)
--- NOTE | 2020-05-19 10:50 | W.INDIABCONS ---
Date of service: 05/19/20 Time of Service: 10:30 Diabetes Inpatient Consult DESCRIPTION/ASSESSMENT: Monica is a 19 y/o Female w/ DM1. She was diagnosed at age 14. Admitted for DKA w/ BG of 510 per EMT's. She is currently on IV insulin and most recent BG today was 194 postprandial. She reports testing her ketones only when she sees that her urine is cloudy. Stated that she eats two meals/day and first one is usually around 11am. She denies eating junk foods, fast foods and processed foods. She appeared lethargic at encounter with this RD. She has 3 mos old baby at home. Noted: hx Crohn's disease. When asked about her insulin regimen at home she stated she takes 15u at night. She reports that they lowered her dose. She feels that she has been taking her insulin correctly. Previously on 30 units Lantus and ~ 25 Novolog. She is aware that 1 unit preprandial will cover 18 g CHO. There is no A1c available at this time. She might be a good candidate for CGM and further DM edu as an outpatient to facilitate mindfulness and promote DM self management. INTERVENTION: Reviewed insulin regimen, discussed CGM option to help with self management and action plans for Glucose highs and lows. Reviewed foods to avoid r/t potential Crohn's flareups. Discussed the imbalance in endocrine system r/t recent . She agree she has had problems with BG since giving . We agreed she should review insulin dosage with MD. This RD will F/U with phone call after discharge to arrange outpatient appointment for intensive DM edu ( food choices, nutrient timing, insulin regemin, CHO counting etc...) and connect her to online support group. Spoke to care providers regarding her needs r/t potential depression. PLAN: This RD will F/U after discharge to arrange for outpatient education as noted above. Time Spent in Nutritional Counseling and Treatment: 15 minutes
[2020-05-19] MEDS: POTASSIUM CHLORIDE 20 MEQ/100 ML BAG 50 MEQ IVPB ×2 (11:06→13:12)
[2020-05-19] MEDS: POTASSIUM CHLORIDE/D5-0.45NACL 1,000 ML 150 MEQ IV ×2 (12:10→20:53)
--- NOTE | 2020-05-19 12:25 | W.PM.PROGNOT ---
Date of Service Date of service: 05/19/20 Time of Service: 12:25 Assessment and Plan Assessment and plan (1) DKA (diabetic ketoacidoses): Status: Acute Assessment and plan: Patient presented in severe DKA with severe metabolic acidosis and required boluses of sodium bicarbonate to correct her acidosis. Present time her anion gap worsened this morning but I expect that it will improve this afternoon and we can hopefully transfer over to basal bolus insulin. Patient was given detemir 15 units this morning and once her anion gap closes I will give her some regular insulin and some more detemir before discontinuing her insulin drip. She still has hypokalemia which is being corrected with potassium boluses along with oral potassium supplementation. Qualifiers: Diabetes mellitus complication detail: without coma Diabetes mellitus type: other specified (including CARA) Qualified Code(s): E13.10 - Other specified diabetes mellitus with ketoacidosis without coma (2) Paroxysmal SVT (supraventricular tachycardia): Status: Resolved Assessment and plan: PSVT is resolved no further arrhythmias. I think this was related to the severe acidosis. (3) Hypokalemia: Status: Acute Assessment and plan: Continue oral and IV supplementation. Recheck her BMP this afternoon (4) Hypomagnesemia: Status: Resolved Assessment and plan: Continue oral supplementation (5) Leukocytosis, unspecified: Status: Resolved Assessment and plan: Blood culture showed no growth therefore Zosyn was discontinued. Leukocytosis is resolved and was probably secondary to the severe DKA. Subjective Subjective Interval history since last seen: Patient is very emotional and upset because she feels that people have accused her of stop taking her insulin. She states that her blood sugar the night before she was brought to the hospital was 183 and she taken her usual detemir 30 units before going to bed. She woke up around 9 AM to void and went back to sleep till 2 PM and had not checked her morning blood sugar or taken a dose of insulin. Patient is upset that she is not being released from the hospital however she remains in acidosis. Apparently her glucose had dropped this morning to 69 around 2 AM necessitating interruption in her insulin. Repeat level at 4 AM was 189 and her insulin drip has been resumed. However it was stopped again around 7:30 AM when her glucose was 103. Patient is now on insulin drip at 5 units an hour and her glucose at noon is 122. Her BMP this morning at 6:30 AM showed that her anion gap was increasing to 16.3 and her bicarbonate had dropped to 11.7. She is currently receiving D5 half-normal saline with 20 mEq of potassium chloride per liter at a rate of 150 mL an hour. Insulin drip at 5 units an hour. Repeat BMP is pending at 1 PM. I gave her half of her usual dose of detemir this morning and hopefully if her anion gap closes we can get her on basal bolus insulin this afternoon and monitor her overnight and discharge her home tomorrow morning. Exam Narrative Exam Narrative: Emotionally distraught tearful patient who is angry. I saw her earlier this morning she was not upset my first evaluated her this morning around 9 AM. She had not eaten breakfast and complained of nausea. Abdominal exam was benign. Soft and nontender with normal active bowel sounds no guarding. Objective Last Vital Signs Temp 36.7 C 05/19/20 11:20 Pulse 103 H 05/19/20 10:01 Resp 25 H 05/19/20 12:00 BP 127/73 05/19/20 10:01 Pulse Ox 100 05/19/20 10:01 Laboratory Results - last 24 hr 05/17/20 05/18/20 05/18/20 17:00 13:05 13:05 WBC RBC Hgb Hct MCV MCH MCHC RDW Plt Count MPV Sodium 141 Potassium 3.7 Chloride 111 H Carbon Dioxide 8.8 L Anion Gap 21.2 H BUN 13 Creatinine 1.19 H Estimated GFR/1.73 m2 57.83 Glucose 204 H Calcium 9.0 Magnesium 2.8 H Total Bilirubin AST ALT Alkaline Phosphatase Total Protein Albumin COVID-19 PCR Negative Nasopharyn COVID-19 PCR Not Applicable Ref Test Perform Site [facility] lab 05/18/20 05/18/20 05/19/20 16:14 20:35 00:30 WBC RBC Hgb Hct MCV MCH MCHC RDW Plt Count MPV Sodium 142 144 144 Potassium 3.1 L 3.3 L 3.5 Chloride 113 H 114 H 115 H Carbon Dioxide 10.7 L 14.3 L 14.6 L Anion Gap 18.3 H 15.7 H 14.4 H BUN 12 11 9 Creatinine 1.25 H 1.21 H 1.05 H Estimated GFR/1.73 m2 54.64 56.73 >= 60.00 Glucose 186 H 91 D 98 Calcium 8.7 9.3 8.9 Magnesium Total Bilirubin AST ALT Alkaline Phosphatase Total Protein Albumin COVID-19 PCR Nasopharyn COVID-19 PCR Ref Test Perform Site 05/19/20 05/19/20 05/19/20 06:22 06:22 06:22 WBC 6.76 D RBC 4.35 Hgb 12.2 D Hct 36.2 MCV 83.2 MCH 28.0 MCHC 33.7 RDW 14.2 Plt Count 285 MPV 10.7 Sodium 142 Potassium 3.2 L Chloride 114 H Carbon Dioxide 11.7 L Anion Gap 16.3 H BUN 9 Creatinine 1.17 H Estimated GFR/1.73 m2 58.97 Glucose 194 H D Calcium 8.5 Magnesium 2.0 Total Bilirubin 0.2 AST 16 ALT 14 Alkaline Phosphatase 89 Total Protein 5.8 L Albumin 2.5 L COVID-19 PCR Nasopharyn COVID-19 PCR Ref Test Perform Site
[2020-05-19 13:11] LABS: Anion Gap 16.6 mmol/L (3-11); BUN 6 mg/dL (7-18); CO2 13.4 mmol/L (21.0-32.0); Calcium 8.9 mg/dL (8.5-10.1); Chloride 113 mmol/L (98-107); Glucose 143 mg/dL (74-106); Potassium 3.4 mmol/L (3.5-5.1); Sodium 143 mmol/L (136-145)
--- NOTE | 2020-05-19 14:44 | PDOC.CMPRO ---
Care Management Progress Note S/O: Monica was lying in bed in the ICU, she became weepy discussing how much she misses her daughter. She verbalized not understanding why she had the diabetic event as she was not doing anything differently than she normally does. She shared feeling that others were blaming her and how upset it made her. Dr. James entered the room and shared that she has not progressed enough to discharge. Monica struggled with this information. She wants to return home to her infant daughter, Bala. 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 She reports her nenita's mom and her mother are proving care for Bala while her and her nenita are working. CM spoke with clinical informatics educator, Rusty who reports Monica will most likely have a continuous glucose monitor as an outpatient, CM requested process to begin now. JR agreed to follow up with [facility] HR regarding Monica's admission as she is currently missing work. A: 19 year old female admitted to [facility] 05/17/20 for DKA, PSVT P: Monica will return home when ready per MD. She will follow up with diabetic education, is likely to have new glucose monitor and new PCP assignment. CM continues to follow.
[2020-05-19 16:31] LABS: BUN 6 mg/dL (7-18); CREATININE 0.74 mg/dL (0.55-1.02); Calcium 8.9 mg/dL (8.5-10.1); Chloride 114 mmol/L (98-107); Glucose 93 mg/dL (74-106); Potassium 3.4 mmol/L (3.5-5.1); Sodium 142 mmol/L (136-145)
[2020-05-19] MEDS: Dextrose 50%-Water 25 GM/50 ML SYR (17:30)
[2020-05-19 20:19] LABS: Anion Gap 13.8 mmol/L (3-11); BUN 4 mg/dL (7-18); CO2 17.2 mmol/L (21.0-32.0); CREATININE 0.82 mg/dL (0.55-1.02); Calcium 8.6 mg/dL (8.5-10.1); Chloride 112 mmol/L (98-107); Glucose 169 mg/dL (74-106); Potassium 3.6 mmol/L (3.5-5.1); Sodium 143 mmol/L (136-145)
[2020-05-20] VITALS (22 sets, daily range): BP systolic 123–139; BP diastolic 80–88; PULSE 76–102; RESP 12–24; TEMP 36.5–36.8; O2SAT 97–99
[2020-05-20] MEDS: Normal Saline Flush 10 ML SYR IVP (00:06)
[2020-05-20] MEDS: POTASSIUM CHLORIDE/D5-0.45NACL 1,000 ML 150 MEQ IV (04:16)
[2020-05-20] MEDS: Dextrose 50%-Water 25 GM/50 ML SYR (06:40)
[2020-05-20 07:00] LABS: Anion Gap 9.8 mmol/L (3-11); BUN 3 mg/dL (7-18); CO2 20.2 mmol/L (21.0-32.0); CREATININE 0.68 mg/dL (0.55-1.02); Calcium 8.3 mg/dL (8.5-10.1); Chloride 115 mmol/L (98-107); Glucose 79 mg/dL (74-106); Potassium 3.3 mmol/L (3.5-5.1); Sodium 145 mmol/L (136-145)
--- NOTE | 2020-05-20 07:47 | NUR.NOTE ---
RN educates patient on importance of eating. Patient pleased with anion gap of 9.8 and had RN order a bagel, cream cheese and orange juice.Nursing Note:
[2020-05-20] MEDS: Magnesium Oxide 400 MG TAB PO (08:03)
[2020-05-20] MEDS: Potassium Chloride 20 MEQ TABCR PO ×2 (08:04→11:31)
[2020-05-20] MEDS: Insulin Aspart 300 UNITS/3 ML PEN SC ×4 (08:38→11:48)
[2020-05-20] MEDS: POTASSIUM CHLORIDE 20 MEQ/100 ML BAG 50 MEQ IVPB ×2 (08:55→10:22)
--- NOTE | 2020-05-20 09:07 | W.PM.PROGNOT ---
Date of Service Date of service: 05/20/20 Time of Service: 09:08 Assessment and Plan Assessment and plan (1) DKA (diabetic ketoacidoses): Status: Acute Assessment and plan: Resolved. Begin basal bolus insulin monitor sugars throughout the morning as well as check repeat BMP at noon time. Will discharge her home. She informs me that her Levemir dose had been 30 units at bedtime when she was but more recently her dose is been only 15 units however she admits that her A1c is been over 8%. I have her on Levemir 20 units twice a day which will need to be reduced when she goes home but I think 15 units once a day is inadequate to control her blood sugars. I put her on her carbohydrate coverage of 1 unit per 18 g in addition to a sensitive scale NovoLog. Qualifiers: Diabetes mellitus type: other specified (including CARA) Diabetes mellitus complication detail: without coma Qualified Code(s): E13.10 - Other specified diabetes mellitus with ketoacidosis without coma (2) Paroxysmal SVT (supraventricular tachycardia): Status: Resolved Assessment and plan: PSVT is resolved no further arrhythmias. I think this was related to the severe acidosis. (3) Hypokalemia: Status: Acute Assessment and plan: Continue oral and IV supplementation. Recheck her BMP this afternoon Subjective Subjective Interval history since last seen: Patient is feeling markedly better this morning. She is sitting up eating breakfast. Her anion gap is closed. She is off her insulin drip and have started on basal bolus insulin. We will monitor her sugars throughout the morning and if there is no rise in her anion gap I will plan on discharging her home this afternoon. Her potassium was low at 3.1 this morning and therefore she is receiving some IV potassium as well as oral potassium I will recheck her BMP at noon time. Exam Narrative Exam Narrative: Alert and oriented person place time circumstance very pleasant sitting up eating her breakfast. No nausea and no abdominal pain. Abdomen soft and nontender. Objective Last Vital Signs Temp 36.7 C 05/20/20 07:53 Pulse 89 05/20/20 07:53 Resp 19 05/20/20 07:53 BP 123/87 05/20/20 07:53 Pulse Ox 97 05/20/20 07:53 Laboratory Results - last 24 hr 05/19/20 05/19/20 05/19/20 12:58 16:00 19:47 Sodium 143 142 143 Potassium 3.4 L 3.4 L 3.6 Chloride 113 H 114 H 112 H Carbon Dioxide 13.4 L 18.0 L 17.2 L Anion Gap 16.6 H 10.0 13.8 H BUN 6 L 6 L 4 L Creatinine 0.90 0.74 0.82 Estimated GFR/1.73 m2 >= 60.00 >= 60.00 >= 60.00 Glucose 143 H 93 D 169 H D Calcium 8.9 8.9 8.6 05/20/20 06:15 Sodium 145 Potassium 3.3 L Chloride 115 H Carbon Dioxide 20.2 L Anion Gap 9.8 BUN 3 L Creatinine 0.68 Estimated GFR/1.73 m2 >= 60.00 Glucose 79 D Calcium 8.3 L
--- NOTE | 2020-05-20 10:37 | NUR.NOTE ---
Patient in good spirits talking to her family and interacting with her daughter on her cellphone. Patient feels well.Nursing Note:
--- NOTE | 2020-05-20 11:39 | NUR.NOTE ---
Patient remains in good spirits continuing to talk with her family on her phone. Patient is motivated to go home today. Patient feeling fine.Nursing Note:
[2020-05-20 12:29] LABS: Anion Gap 10.9 mmol/L (3-11); BUN 3 mg/dL (7-18); CO2 19.1 mmol/L (21.0-32.0); Calcium 8.6 mg/dL (8.5-10.1); Chloride 111 mmol/L (98-107); Glucose 244 mg/dL (74-106); Potassium 4.3 mmol/L (3.5-5.1); Sodium 141 mmol/L (136-145)
--- NOTE | 2020-05-20 14:36 | NUR.NOTE ---
Nursing Note: Patient would like to go home and is a bit tearful. Patient feels fine and is expecting to be discharged. RN to write not to MD sharing said information.
--- NOTE | 2020-05-20 15:29 | CHAPLAIN ---
Monica was sitting in her bed, and was on her phone when I visited. I explained my role and offered support. Monica said she expects to be discharged later today.
--- NOTE | 2020-05-20 15:46 | W.PM.DS.N ---
Date of service: 05/20/20 Time of Service: 15:46 DS: Diagnosis Discharge Diagnosis (1) DKA (diabetic ketoacidoses): Status: Resolved Asessment and Plan: Patient's DKA has resolved and patient is now on basal bolus insulin treatment. Her basal insulin on Levemir was increased from 15 units nightly to 15 units twice a day. Patient will continue on her usual dose of 1 unit of Humalog per 18 g of carbohydrates. She is monitor blood sugars before meals and at bedtime as well as 1 hour PC. (2) Paroxysmal SVT (supraventricular tachycardia): Status: Resolved Asessment and Plan: Patient's episode of PSVT resolved with correction of her hypokalemia and her acidosis. (3) Hypokalemia: Status: Resolved Asessment and Plan: Hypokalemia resolved with large amounts of IV supplementation and oral supplementation. At the time of discharge her potassium was up to 4.3. Patient should have a repeat BMP in 2 days to ensure that her hypokalemia remains resolved. No oral supplementation was sent home with her as she is now eating a regular diet and should not require additional supplementation. Discharge Plan Disposition Patient Disposition: HOME Condition: Good Discharge Details Reason For Visit: DKA, PSVT Admit Date/Time: 05/17/20 17:42 Admit Provider: Regan Haile Attending Provider: Regan Haile Primary Care Provider: Ashvin Castillo Hospital Course Hospital Course: 19-year-old female type I diabetic who presented to the emergency department with acute mental status change. Patient was found at home by family members to be very lethargic and poorly responsive. Blood sugars were checked at home and found to be high and off the meter. Upon arrival to emergency department she was found to be in diabetic ketoacidosis with severe acidosis with VBG pH less than 6.7 and glucose 640 with acute kidney injury with a BUN of 24 creatinine 1.72 and a bicarbonate level of 5.2. CBC demonstrated a leukocytosis of 43,000. Patient was given IV fluids and start insulin drip per [place] protocol. Patient was admitted to the intensive care unit but because of the profound acidosis required boluses of IV bicarbonate. Her subsequent serial BMPs showed persistent carbon dioxide less than 5.0 throughout the night but after boluses of sodium bicarbonate and with continued insulin drip her bicarbonate levels arnold above 10 by the next afternoon. With aggressive fluid hydration her renal insufficiency improved with continued IV insulin her blood sugars came under control. Her hypokalemia required repeated boluses of IV potassium in the next day when she was able to take oral supplementation she was put on oral potassium. At the time of discharge her BUN and creatinine are back to normal with a BUN of 3 and a creatinine 0.8. Potassium level was 4.3 at discharge. Her bicarbonate level was 20 and her anion gap was 10. She was started on basal insulin on May 19, 2020 while she was still on insulin drip and by the morning of May 20, 2020 the insulin drip was off and she was monitored throughout the day with serial blood sugars and repeat BMP levels. By this time she was back to eating a regular diet and no longer required IV fluids or IV potassium supplementation. She was put on carb coverage at her previous level of 1 unit per 18 g of carbohydrates but she was also given a sliding scale of NovoLog. Her Levemir was increased to 15 units twice a day. On the day of discharge her blood sugars are ranging from 142 in the morning to 225 in the afternoon. Case management set the patient up with a new primary care provider, Hetal Leon. Home Meds and New Rx's Prescriptions: New (DME) pen needle, diabetic [BD Ultra-Fine Gissel Pen Needle] 32 gauge x 5/32 needle 1 device miscellaneous DIRECTED Qty: 100 RF: 0 (DME) pen needle, diabetic [BD Ultra-Fine Gissel Pen Needle] 32 gauge x 5/32 needle See Rx Instructions .ROUTE .COMPLEX Qty: 100 RF: 0 Continued insulin lispro [Humalog KwikPen Insulin] 100 unit/mL insulin pen 1 unit SC .COMPLEX RF: 0 Changed Levemir FlexTouch U-100 Insuln 100 unit/mL (3 mL) insulin pen 15 unit SUBCUT BID Qty: 9 RF: 0 Discharge Instructions Referrals: Hetal Leon NP [NURSE PRACTITIONER] - 05/25/20 11:30 am Activity:: Activity as Tolerated Equipment/Supplies:: No Equipment Needed Diet:: Carb Counting Discharge Orders Discharge Orders: Discharge Order (Routine); Ordered 05/20/20 Ordered By: Joe James Other Ambulatory Orders: Basic Metabolic Panel (Routine) Timeframe: 2 Days Facility: [facility] - Location: Laboratory Outpatient Ordered By: Joe James Discharge Data Discharge Date/Time-TO BE ENTERED AT DEPARTURE: 05/20/20 16:00 DS: Summary Status at Discharge Functional status at discharge: independent ambulation Overall status at discharge: patient is back to baseline Mental Status: mental status grossly normal Speech and Movement: speech and movement normal Mood: congruent mood Affect: normal affect Time Spent with Patient providing and/or coordinating discharge services: Less than 30 minutes Exam Narrative Exam Narrative: Alert and oriented person place time circumstance very pleasant sitting up eating her breakfast. No nausea and no abdominal pain. Abdomen soft and nontender. Psych Mental Status: mental status grossly normal Speech and Movement: speech and movement normal Mood: congruent mood Affect: normal affect DS: Data Vitals/I&O Vitals and I&O: Vital Signs Temperature 36.7 C 05/20/20 07:53 Temperature Source Temporal Artery Scan 05/20/20 07:53 Pulse 89 05/20/20 07:53 Pulse 83 05/20/20 06:23 Respiratory Rate 19 05/20/20 07:53 Respiratory Effort 05/20/20 07:53 Respiratory Depth Normal 05/20/20 07:53 Respiratory Pattern Normal 05/20/20 07:53 Blood Pressure 123/87 05/20/20 07:53 Blood Pressure Mean 99 05/20/20 07:53 Blood Pressure Position Supine 05/20/20 07:53 Pulse Oximetry 97 05/20/20 07:53 Oxygen Delivery Method Room Air 05/20/20 07:53 Oxygen Flow Rate 0 05/20/20 07:53 Pain Level 0 05/20/20 07:53 Intake & Output 05/19/20 05/20/20 05/20/20 23:59 11:59 23:59 Intake Total 1633.517 / 4309.003 1707.209 / 1807.209 100 / 1807.209 Output Total 900 / 1500 500 / 500 Balance 733.517 / 2809.003 1207.209 / 1307.209 100 / 1307.209 Weight 92.9 kg Intake: IV 1533.517 / 4209.003 1707.209 / 1807.209 100 / 1807.209 Oral 100 / 100 Output: Urine 600 / 1200 500 / 500 Stool 300 / 300 Other: Urine Color Light Quyen Urine Appearance Hematuria Urine Odor None Comment mixed with urine Patient is menstruating Stool Size Moderate Stool Characteristics Liquid Voiding Methods Bedside Commode Bedside Commode Data Completed and Pending Labs on day of discharge: Labs from last 24 hours 05/20/20 05/20/20 05/20/20 15:06 12:10 08:04 Sodium 141 Potassium 4.3 D Chloride 111 H Carbon Dioxide 19.1 L Anion Gap 10.9 BUN 3 L Creatinine 0.80 Estimated GFR/1.73 m2 >= 60.00 Glucose 244 H D Hemoglobin A1c Pending Calcium 8.6 Urine Color Pending Urine Clarity Pending Urine pH Pending Ur Specific [place] Pending Urine Protein Pending Urine Ketones Pending Urine Blood Pending Urine Nitrite Pending Urine Bilirubin Pending Urine Urobilinogen Pending Ur Leukocyte Esterase Pending Urine Glucose Pending 05/20/20 05/19/20 05/19/20 06:15 19:47 16:00 Sodium 145 143 142 Potassium 3.3 L 3.6 3.4 L Chloride 115 H 112 H 114 H Carbon Dioxide 20.2 L 17.2 L 18.0 L Anion Gap 9.8 13.8 H 10.0 BUN 3 L 4 L 6 L Creatinine 0.68 0.82 0.74 Estimated GFR/1.73 m2 >= 60.00 >= 60.00 >= 60.00 Glucose 79 D 169 H D 93 D Hemoglobin A1c Calcium 8.3 L 8.6 8.9 Urine Color Urine Clarity Urine pH Ur Specific [place] Urine Protein Urine Ketones Urine Blood Urine Nitrite Urine Bilirubin Urine Urobilinogen Ur Leukocyte Esterase Urine Glucose Preliminary micro results at discharge 05/17/20 18:12 Blood Culture - Preliminary Blood NO GROWTH 48 HOURS 05/17/20 17:55 Blood Culture - Preliminary Blood NO GROWTH 48 HOURS [facility] Medical History Crohn disease Elevated blood pressure affecting in third trimester, antepartum Type I diabetes mellitus Surgical History Colonoscopy - MAC (03/06/17) Family History Maternal Grandfather Breast cancer Social History Smoking/Tobacco Use Status: Never Alcohol Intake: never Drug use: Never Household members: significant other and other Details: Drew Number of Children: 0 Communication Needs: None 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
--- NOTE | 2020-05-20 16:20 | PDOC.CMDIS ---
- If Service Date Differs Date of service: 05/20/20 Time of Service: 16:20 LACE Index Scoring Tool - Questions: Length of Stay (in days): 3 Acuity (Admit via E.D.?): Yes Comorbidities: Diabetes w/o Complication E.D. Visits: 1 - Answers: Total Score: 8 Risk of Readmission: Low Risk Care Management Discharge Reason for Hospitalization: DKA, PSVT Discharge Plan: Monica will return home with no additional services. JR sent a referral to [facility] for follow up and to become established with a new PCP. Her appointment is scheduled for 05/25/20 at 11:30 am. JR sent a letter to HR at [employer] [employer] where she works to verify dates of her admission. Monica will follow up with her PCP and discharge plan of care. She is happy to be going home to see her new baby. Patient/Family Education Needs: Review discharge instructions regarding medications and nutrition, discussion of self care needs including ask me three.
[2020-05-20 17:13] LABS: Hemoglobin A1C 13.1 % (<5.7)
== END 2020-05-20 16:00 | disposition home or self-care (01) | DRG 638 ==
LOC: ER 17:53 → ICU 18:32
PROVIDERS: Family Medicine; Internal Medicine; Admitting Provider Family Medicine; Emergency Provider Emergency Medicine; PCP Pediatrics; Visit Provider Family Medicine
DX: E10.10 Type 1 diabetes mellitus with ketoacidosis without coma (principal); K50.90 Crohn's disease, unspecified, without complications; I47.1 Supraventricular tachycardia; T38.3X6A Underdosing of insulin and oral hypoglycemic [antidiabetic] drugs, initial encounter; E83.42 Hypomagnesemia; E87.6 Hypokalemia; D72.829 Elevated white blood cell count, unspecified
CPT/HCPCS: 36415; 36416; 80048; 80053; 80307; 81025; 82805; 82962; 84145; 85027; 87040; 93005; 96361; 96365; 96368; 96375; 99223; 99232; 99233; 99239; 99291; U0003; 70450; 71046; 81003; 81015; 83036; 83605; 83735; 84100; 84484; 85025; 93010; J0153; J1644; J2405; J2543; J3475; J3480; J3490

== ENCOUNTER 2020-05-25 02:03 | Outpatient (CLI) | payer BC, SELFPAY ==
[2020-05-25 12:27] LABS: Anion Gap 7.5 mmol/L (3-11); BUN 10 mg/dL (7-18); CO2 32.5 mmol/L (21.0-32.0); CREATININE 0.79 mg/dL (0.55-1.02); Calcium 8.7 mg/dL (8.5-10.1); Chloride 107 mmol/L (98-107); Glucose 122 mg/dL (74-106); Potassium 3.6 mmol/L (3.5-5.1); Sodium 147 mmol/L (136-145)
== END 2020-05-25 02:23 ==
PROVIDERS: PCP Pediatrics; Visit Provider Internal Medicine
DX: E87.6 Hypokalemia (principal)
CPT/HCPCS: 36415; 80048

== ENCOUNTER 2020-07-02 14:18 | Inpatient (IN) | payer BC, SELFPAY ==
[2020-07-02] VITALS (86 sets, daily range): BP systolic 75–164; BP diastolic 51–91; PULSE 94–139; RESP 14–33; TEMP 36.3–36.8; O2SAT 95–100
--- NOTE | 2020-07-02 14:22 | W.ED.GENAD ---
Discharge Plan Disposition Patient Disposition: [facility] INPATIENT Condition: Serious Discharge Details Clinical Impression: DKA (diabetic ketoacidoses), Nausea and vomiting Admit Date/Time: 07/02/20 15:41 Admit Provider: Kim De Oliveira Attending Provider: Kim De Oliveira Primary Care Provider: Hetal Leon ED Provider: Apryl Mendoza Discharge Data Discharge Physician: Apryl Mendoza Medical Decision Making 1440 -- 19-year-old female with a history of type 1 diabetes, Crohn's disease and recent admission for DKA who presents for vomiting since 4 AM. Glucose 536 on arrival. Patient appears mildly tachypneic but otherwise nontoxic. Heart rate 110s. She is afebrile. Abdomen is soft and nontender. She has no focal deficits. Concern for DKA. 1 L normal saline and IV Zofran ordered. Labs reviewed and note a white blood cell count of 23, hemoglobin pain, 5 bands. Glucose 519, pH 6.99, bicarb 5, lactate 3.4. Potassium 5.7. Troponin negative. Insulin bolus and drip started. 1520 --Case discussed with hospitalist accepts patient for admission. Patient reassessed and she feels much better. Glucose 374. 1800 --repeat VBG no improvement. Patient appears clinically improved. Heart rate improved. 1930 --repeat VBG no significant improvement. Nausea returned and given a dose of Zofran. Patient states she feels much better. She appears much more comfortable. Heart rate remains increasing, likely due to recent vomiting. We will continue to monitor. Glucose improving now 210. 2009 --heart rate improving. Medical Records Medical records reviewed: Yes I reviewed the patient's medical records. Lab Data Lab results reviewed: Yes I reviewed the patient's lab results. Labs: Laboratory Tests Range/Units 07/02/20 07/02/20 07/02/20 13:13 14:32 14:32 WBC (4.4-10.8) 10^3/uL 23.71 H RBC (3.93-5.22) 10^6/uL 5.67 H Hgb (11.2-15.7) g/dL 16.1 H Hct (36.0-46.0) % 51.1 H MCV (80-95) fL 90.1 MCH (27.0-33.0) pg 28.4 MCHC (32.0-36.0) % 31.5 L RDW (11.7-14.6) % 13.3 Plt Count (130-400) 10^3/uL 608 H MPV (8.0-11.0) fL 11.7 H Immature Gran % 0.0 Neutrophils % 90.0 Band Neutrophils % 5 Lymphocytes % 2.0 Atypical Lymphs % 2 Monocytes % 1.0 Eosinophils % 0.0 Basophils % 0.0 Nucleated RBC % % 0 Absolute Neutrophils (1.2-6.7) 10^3/uL 22.52 H Absolute Lymphocytes (1.2-3.4) 10^3/uL 0.95 L Absolute Monocytes (0.1-0.8) 10^3/uL 0.24 Absolute Eosinophils (0.0-0.7) 10^3/uL 0.00 Absolute Basophils (0.0-0.2) 10^3/uL 0.00 RBC Morphology See below Poikilocytosis 1+ PT (9.3-11.0) sec INR (0.9-1.1) APTT (21.0-27.5) sec VBG pH (7.31-7.41) VBG pCO2 (41-51) mmHg VBG pO2 mmHg VBG HCO3 (23-28) mmol/L VBG Total CO2 (24-29) mmol/L VBG O2 Saturation % VBG Base Excess (-2-3) mmol/L VBG Lactate (0.6-1.4) mmol/L Sodium (136-145) mmol/L 134 L Potassium (3.5-5.1) mmol/L 5.7 H Chloride (98-107) mmol/L 98 Carbon Dioxide (21.0-32.0) mmol/L 5.9 L Anion Gap (3-11) mmol/L 30.1 H BUN (7-18) mg/dL 17 Creatinine (0.55-1.02) mg/dL 1.30 H Estimated GFR/1.73 m2 (mL/min/1.73m2) 52.22 Glucose (74-106) mg/dL 519 H* Calcium (8.5-10.1) mg/dL 10.1 Phosphorus (2.6-4.7) mg/dL Magnesium (1.8-2.4) mg/dL 2.2 Total Bilirubin (0.2-1.0) mg/dL 0.5 AST (15-37) U/L 20 ALT (14-59) U/L 19 Alkaline Phosphatase (46-116) U/L 148 H Troponin I (<0.06) ng/mL < 0.05 Total Protein (6.4-8.2) g/dL 10.1 H Albumin (3.4-5.0) g/dL 5.1 H Urine Color (Yellow) Yellow Urine Clarity (Clear) Clear Urine pH (5-8) 5.5 Ur Specific [place] (1.005-1.025) >= 1.030 H Urine Protein (Negative) mg/dL >=300 H Urine Ketones (Negative) mg/dL >=160 H Urine Blood (Negative) Small H Urine Nitrite (Negative) Negative Urine Bilirubin (Negative) Negative Urine Urobilinogen (Up TO 0.2) EU/dL 0.2 Ur Leukocyte Esterase (Negative) Negative Urine RBC (0-2) HPF 0-2 Urine WBC (0-5) HPF 0-2 Ur Epithelial Cells (Negative) HPF Moderate Urine Crystals (Negative) HPF Negative Urine Bacteria (Negative) HPF Rare Urine Casts (Negative) LPF Negative Urine Mucus (Negative) Negative Ur Culture Indicated? No Urine Glucose (Negative) mg/dL 500 H Range/Units 07/02/20 07/02/20 07/02/20 14:32 14:32 14:32 WBC (4.4-10.8) 10^3/uL RBC (3.93-5.22) 10^6/uL Hgb (11.2-15.7) g/dL Hct (36.0-46.0) % MCV (80-95) fL MCH (27.0-33.0) pg MCHC (32.0-36.0) % RDW (11.7-14.6) % Plt Count (130-400) 10^3/uL MPV (8.0-11.0) fL Immature Gran % Neutrophils % Band Neutrophils % Lymphocytes % Atypical Lymphs % Monocytes % Eosinophils % Basophils % Nucleated RBC % % Absolute Neutrophils (1.2-6.7) 10^3/uL Absolute Lymphocytes (1.2-3.4) 10^3/uL Absolute Monocytes (0.1-0.8) 10^3/uL Absolute Eosinophils (0.0-0.7) 10^3/uL Absolute Basophils (0.0-0.2) 10^3/uL RBC Morphology Poikilocytosis PT (9.3-11.0) sec 10.3 INR (0.9-1.1) 1.0 APTT (21.0-27.5) sec 28.1 H VBG pH (7.31-7.41) 6.99 L* VBG pCO2 (41-51) mmHg 21 L VBG pO2 mmHg 69 VBG HCO3 (23-28) mmol/L 5 L VBG Total CO2 (24-29) mmol/L 5 L VBG O2 Saturation % 87 VBG Base Excess (-2-3) mmol/L < -15 L VBG Lactate (0.6-1.4) mmol/L 3.4 H* Sodium (136-145) mmol/L Potassium (3.5-5.1) mmol/L Chloride (98-107) mmol/L Carbon Dioxide (21.0-32.0) mmol/L Anion Gap (3-11) mmol/L BUN (7-18) mg/dL Creatinine (0.55-1.02) mg/dL Estimated GFR/1.73 m2 (mL/min/1.73m2) Glucose (74-106) mg/dL Calcium (8.5-10.1) mg/dL Phosphorus (2.6-4.7) mg/dL Magnesium (1.8-2.4) mg/dL Total Bilirubin (0.2-1.0) mg/dL AST (15-37) U/L ALT (14-59) U/L Alkaline Phosphatase (46-116) U/L Troponin I (<0.06) ng/mL Total Protein (6.4-8.2) g/dL Albumin (3.4-5.0) g/dL Urine Color (Yellow) Urine Clarity (Clear) Urine pH (5-8) Ur Specific [place] (1.005-1.025) Urine Protein (Negative) mg/dL Urine Ketones (Negative) mg/dL Urine Blood (Negative) Urine Nitrite (Negative) Urine Bilirubin (Negative) Urine Urobilinogen (Up TO 0.2) EU/dL Ur Leukocyte Esterase (Negative) Urine RBC (0-2) HPF Urine WBC (0-5) HPF Ur Epithelial Cells (Negative) HPF Urine Crystals (Negative) HPF Urine Bacteria (Negative) HPF Urine Casts (Negative) LPF Urine Mucus (Negative) Ur Culture Indicated? Urine Glucose (Negative) mg/dL Range/Units 07/02/20 07/02/20 07/02/20 18:00 18:00 18:00 WBC (4.4-10.8) 10^3/uL RBC (3.93-5.22) 10^6/uL Hgb (11.2-15.7) g/dL Hct (36.0-46.0) % MCV (80-95) fL MCH (27.0-33.0) pg MCHC (32.0-36.0) % RDW (11.7-14.6) % Plt Count (130-400) 10^3/uL MPV (8.0-11.0) fL Immature Gran % Neutrophils % Band Neutrophils % Lymphocytes % Atypical Lymphs % Monocytes % Eosinophils % Basophils % Nucleated RBC % % Absolute Neutrophils (1.2-6.7) 10^3/uL Absolute Lymphocytes (1.2-3.4) 10^3/uL Absolute Monocytes (0.1-0.8) 10^3/uL Absolute Eosinophils (0.0-0.7) 10^3/uL Absolute Basophils (0.0-0.2) 10^3/uL RBC Morphology Poikilocytosis PT (9.3-11.0) sec INR (0.9-1.1) APTT (21.0-27.5) sec VBG pH (7.31-7.41) VBG pCO2 (41-51) mmHg VBG pO2 mmHg VBG HCO3 (23-28) mmol/L VBG Total CO2 (24-29) mmol/L VBG O2 Saturation % VBG Base Excess (-2-3) mmol/L VBG Lactate (0.6-1.4) mmol/L 2.3 H* Sodium (136-145) mmol/L 137 Potassium (3.5-5.1) mmol/L 5.5 H Chloride (98-107) mmol/L 106 Carbon Dioxide (21.0-32.0) mmol/L 6.1 L Anion Gap (3-11) mmol/L 24.9 H BUN (7-18) mg/dL 15 Creatinine (0.55-1.02) mg/dL 1.10 H Estimated GFR/1.73 m2 (mL/min/1.73m2) >= 60.00 Glucose (74-106) mg/dL 316 H D Calcium (8.5-10.1) mg/dL 9.1 Phosphorus (2.6-4.7) mg/dL 4.9 H Magnesium (1.8-2.4) mg/dL 2.2 Total Bilirubin (0.2-1.0) mg/dL AST (15-37) U/L ALT (14-59) U/L Alkaline Phosphatase (46-116) U/L Troponin I (<0.06) ng/mL Total Protein (6.4-8.2) g/dL Albumin (3.4-5.0) g/dL Urine Color (Yellow) Urine Clarity (Clear) Urine pH (5-8) Ur Specific [place] (1.005-1.025) Urine Protein (Negative) mg/dL Urine Ketones (Negative) mg/dL Urine Blood (Negative) Urine Nitrite (Negative) Urine Bilirubin (Negative) Urine Urobilinogen (Up TO 0.2) EU/dL Ur Leukocyte Esterase (Negative) Urine RBC (0-2) HPF Urine WBC (0-5) HPF Ur Epithelial Cells (Negative) HPF Urine Crystals (Negative) HPF Urine Bacteria (Negative) HPF Urine Casts (Negative) LPF Urine Mucus (Negative) Ur Culture Indicated? Urine Glucose (Negative) mg/dL Range/Units 07/02/20 07/02/20 18:00 18:30 WBC (4.4-10.8) 10^3/uL RBC (3.93-5.22) 10^6/uL Hgb (11.2-15.7) g/dL Hct (36.0-46.0) % MCV (80-95) fL MCH (27.0-33.0) pg MCHC (32.0-36.0) % RDW (11.7-14.6) % Plt Count (130-400) 10^3/uL MPV (8.0-11.0) fL Immature Gran % Neutrophils % Band Neutrophils % Lymphocytes % Atypical Lymphs % Monocytes % Eosinophils % Basophils % Nucleated RBC % % Absolute Neutrophils (1.2-6.7) 10^3/uL Absolute Lymphocytes (1.2-3.4) 10^3/uL Absolute Monocytes (0.1-0.8) 10^3/uL Absolute Eosinophils (0.0-0.7) 10^3/uL Absolute Basophils (0.0-0.2) 10^3/uL RBC Morphology Poikilocytosis PT (9.3-11.0) sec INR (0.9-1.1) APTT (21.0-27.5) sec VBG pH (7.31-7.41) 6.92 L* 6.93 L* VBG pCO2 (41-51) mmHg 20 L 26 L VBG pO2 mmHg 72 47 VBG HCO3 (23-28) mmol/L 4 L 5 L VBG Total CO2 (24-29) mmol/L 4 L 5 L VBG O2 Saturation % 88 70 VBG Base Excess (-2-3) mmol/L < -15 L < -15 L VBG Lactate (0.6-1.4) mmol/L Sodium (136-145) mmol/L Potassium (3.5-5.1) mmol/L Chloride (98-107) mmol/L Carbon Dioxide (21.0-32.0) mmol/L Anion Gap (3-11) mmol/L BUN (7-18) mg/dL Creatinine (0.55-1.02) mg/dL Estimated GFR/1.73 m2 (mL/min/1.73m2) Glucose (74-106) mg/dL Calcium (8.5-10.1) mg/dL Phosphorus (2.6-4.7) mg/dL Magnesium (1.8-2.4) mg/dL Total Bilirubin (0.2-1.0) mg/dL AST (15-37) U/L ALT (14-59) U/L Alkaline Phosphatase (46-116) U/L Troponin I (<0.06) ng/mL Total Protein (6.4-8.2) g/dL Albumin (3.4-5.0) g/dL Urine Color (Yellow) Urine Clarity (Clear) Urine pH (5-8) Ur Specific [place] (1.005-1.025) Urine Protein (Negative) mg/dL Urine Ketones (Negative) mg/dL Urine Blood (Negative) Urine Nitrite (Negative) Urine Bilirubin (Negative) Urine Urobilinogen (Up TO 0.2) EU/dL Ur Leukocyte Esterase (Negative) Urine RBC (0-2) HPF Urine WBC (0-5) HPF Ur Epithelial Cells (Negative) HPF Urine Crystals (Negative) HPF Urine Bacteria (Negative) HPF Urine Casts (Negative) LPF Urine Mucus (Negative) Ur Culture Indicated? Urine Glucose (Negative) mg/dL HPI General Mode of arrival: ambulatory. Date/Time Provider Initiated Documentation: 07/02/20 14:21. Limitations to Documentation: no limitations. Information obtained by: patient. HPI Narrative: Patient is a 19-year-old female with a history of type 1 diabetes diagnosed in 2014 who presents for vomiting since 4 AM this morning. Patient states she vomited multiple times which is mainly clear or green. She states she went to bed last night feeling fine. She takes her glucose today and states it was 180. On arrival to the ED her glucose was in the 500s. Patient states she is concerned that her glucometer is not working correctly. She has been taking her insulin as directed. She takes 15 units in the morning and 18 units in the evening. She denies any recent travel, recent illness, fever, chest pain, diarrhea, urinary symptoms or abdominal pain. She admits to some shortness of breath when she has vomiting but denies any at present. She denies any recent antibiotic known sick contacts. Of note, patient was admitted here last month for DKA. Related Data Home Medications Medication Instructions Recorded Confirmed pen needle, diabetic [BD #100 ea 05/20/20 05/25/20 Ultra-Fine Gissel Pen Needle] pen needle, diabetic [BD #100 ea 05/20/20 05/25/20 Ultra-Fine Gissel Pen Needle] insulin lispro 100 unit/mL 1 - 30 unit SC .AC (4-5 times 05/27/20 07/02/20 subcutaneous pen daily) #45 syrg MDD 150 units Levemir FlexTouch U-100 Insuln See Rx Instructions .ROUTE .COMPLEX 07/02/20 07/02/20 Previous Rx's Medication Instructions Recorded pen needle, diabetic [BD #100 ea 05/20/20 Ultra-Fine Gissel Pen Needle] pen needle, diabetic [BD #100 ea 05/20/20 Ultra-Fine Gissel Pen Needle] insulin lispro 100 unit/mL 1 - 30 unit SC .AC (4-5 times 05/27/20 subcutaneous pen daily) #45 syrg MDD 150 units Allergies Allergy/AdvReac Type Severity Reaction Status Date / Time No Known Allergies Allergy Verified 07/02/20 14:36 General CHACHA: 2 Review of Systems All systems reviewed & are unremarkable except as noted in HPI and below Constitutional Constitutional: Reports as per HPI, Denies chills and Denies fever(s) Eyes Eyes: Denies blurry vision ENT Ears, Nose, Mouth, and Throat: Denies dizziness, Denies sore throat and Denies throat swelling Cardiovascular Cardiovascular: Denies chest pain and Denies dyspnea Respiratory Respiratory: Denies cough and Denies dyspnea Gastrointestinal Gastrointestinal: Denies abdominal pain, Denies diarrhea and Reports vomiting Genitourinary Genitourinary: Denies hematuria and Denies dysuria Musculoskeletal Musculoskeletal: Denies back pain and Denies numbness Integumentary/Breasts Skin/Breast: Denies lesions and Denies rash Neurologic Neurologic: Denies dizziness, Denies localized weakness and Denies numbness Allergic/Immunologic Allergic/Immunologic: Denies throat swelling [facility] Medical History (Updated 07/02/20 @ 17:47 by Kim De Oliveira MD) Crohn's disease Elevated blood pressure affecting in third trimester, antepartum Type 1 diabetes mellitus [facility] [place] Endo; h/o hospitalizations for DKA Surgical History Colonoscopy - [facility] (03/06/17) Family History (Updated 07/02/20 @ 17:41 by Kim De Oliveira MD) Maternal Grandfather Breast cancer Paternal Cousin Diabetes Maternal Grandfather Heart disease Mother Hypertension Social History (Updated 05/25/20 @ 15:29 by Hetal Leon NP) Smoking/Tobacco Use Status: Never Smoking risk assessment performed?: Yes Alcohol Intake: never Drug use: Occasionally Substance use type: marijuana Adopted: No Caregiver/Support person: Yes (2 month old ricardo) Household members: significant other, children and other Details: Fianc?: Glenn; 2-month-old (as of May 2020) Housing: house Number of Children: 1 Communication Needs: None Education Level: high school current occupation: [employer] Pets and animals: Yes Pets and animals: dog(s) Sexually active: Yes Do you think of yourself as: straight/heterosexual Current gender identity: female What is your relationship status?: living with partner Panel score (0-1 are the most socially isolated patients): 1 What type of physical activity do you participate in: walking Seatbelt use: always Helmet use: Yes Drive intox or ride w/intox 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: 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 Working smoke detector in home: Yes Fire extinguisher in home: No Carbon monox detector in home: Yes Firearms in home: No Do you feel safe at home: Yes Do you feel safe in your relationship?: Yes Victim of physical abuse: No Victim of emotional abuse: No Victim of sexual abuse: No Female Reproductive History Menstrual Age of Menarche: 10 Duration of menses: 3-5 days control method: pills History History 1 Para 0 Hx # Term Pregnancies 0 Multiple births 0 Hx # Pregnancies 0 Ectopic pregnancies 0 AB induced 0 Hx Number of Living Children 0 AB spontaneous 0 Exam Const General: cooperative and no acute distress Orientation: alert, awake and oriented x3 HENMT Head: normal to inspection Ears: hearing grossly normal bilaterally and external ears normal General nose exam: external nose normal Face and sinus: normal facial exam Mouth: mucous membranes dry (Mildly dry) Teeth and gingiva: dentition normal Throat: posterior oropharynx normal Eyes General: appearance normal, both eyes and all related structures Eyelids: eyelids normal Pupils: PERRL EOM: EOM intact bilaterally Neck Neck: normal visual inspection Lymphatic: no lymphadenopathy noted Chest Chest: normal inspection of the chest Resp Effort & Inspection: normal respiratory effort and able to speak in complete sentences Auscultation: clear to auscultation bilaterally Cardio Rate: regular rate Rhythm: regular rhythm GI Inspection: normal to inspection Palpation: soft, not firm, no guarding, no hepatosplenomegaly, no masses and nontender Auscultation: normal bowel sounds Skin General skin exam: no rashes or lesions noted Neuro General: patient alert and patient awake Cognition: normal cognition Speech: speech normal Gait: normal gait Motor: muscle tone normal throughout Sensory Exam: no sensory deficits noted Extrem General: normal to inspection, full ROM, capillary refill normal and no edema Psych Appearance: grossly normal Mental Status: mental status grossly normal Speech and Movement: speech and movement normal Affect: normal affect Thought Process: normal
[2020-07-02] MEDS: Normal Saline 1,000 ML 1000 ML IV ×2 (14:52→15:45)
[2020-07-02 14:54] LABS: O2 Sat (Venous) 87 %; pO2 (Venous) 69 mmHg
[2020-07-02 14:56] LABS: HCT 51.1 % (36.0-46.0); HGB 16.1 g/dL (11.2-15.7); MCH 28.4 pg (27.0-33.0); MCHC 31.5 % (32.0-36.0); MCV 90.1 fL (80-95); MPV 11.7 fL (8.0-11.0); Nucleated RBC 0 %; RBC 5.67 10^6/uL (3.93-5.22); RDW 13.3 % (11.7-14.6); RDW-SD 43.8 fL; WBC 23.71 10^3/uL (4.4-10.8)
[2020-07-02] MEDS: Ondansetron 4 MG/2 ML VIAL (14:56)
[2020-07-02 15:01] LABS: TCO2 (Venous) 5 mmol/L (24-29); pH (Venous) 6.99 (7.31-7.41)
[2020-07-02 15:02] LABS: HCO3 (Venous) 5 mmol/L (23-28); pCO2 (Venous) 21 mmHg (41-51)
[2020-07-02 15:09] LABS: PTT Activated 28.1 sec (21.0-27.5); Prothrombin Time 10.3 sec (9.3-11.0)
[2020-07-02 15:14] LABS: Absolute Lymphocyte Count 0.95 10^3/uL (1.2-3.4); Absolute Monocyte Count 0.24 10^3/uL (0.1-0.8); Absolute Neutrophil Count 22.52 10^3/uL (1.2-6.7); Atypical Lymphocytes % 2; Bands % 5; Diff Comment Manual Differential; Platelet Count 608 10^3/uL (130-400); Poikilocytes 1+
[2020-07-02 15:16] LABS: Lactate 3.4 mmol/L (0.6-1.4)
[2020-07-02 15:20] LABS: Bilirubin Negative (Negative); Blood Small (Negative); Clarity Clear (Clear); Glucose 500 mg/dL (Negative); Ketones >=160 mg/dL (Negative); Leukocyte Esterase Negative (Negative); Nitrite Negative (Negative); Specific Gravity >= 1.030 (1.005-1.025); Urobilinogen 0.2 EU/dL (Up TO 0.2); pH 5.5 (5-8)
--- NOTE | 2020-07-02 15:23 | NUR.NOTE ---
pt remains awake and alert. vs stable. up to bsc with no assist. pt still uncomfortable at this time. no active vomiting. :
[2020-07-02 15:26] LABS: ALT 19 U/L (14-59); AST 20 U/L (15-37); Albumin 5.1 g/dL (3.4-5.0); Alkaline Phosphatase 148 U/L (46-116); Anion Gap 30.1 mmol/L (3-11); BUN 17 mg/dL (7-18); Bilirubin, Total 0.5 mg/dL (0.2-1.0); CO2 5.9 mmol/L (21.0-32.0); Calcium 10.1 mg/dL (8.5-10.1); Chloride 98 mmol/L (98-107); Estimated GFR 52.22 (mL/min/1.73m2); Magnesium 2.2 mg/dL (1.8-2.4); Potassium 5.7 mmol/L (3.5-5.1); Sodium 134 mmol/L (136-145); Total Protein 10.1 g/dL (6.4-8.2)
[2020-07-02 15:28] LABS: Troponin I < 0.05 ng/mL (<0.06)
[2020-07-02 15:29] LABS: Glucose 519 mg/dL (74-106)
[2020-07-02 15:30] LABS: Bacteria Rare HPF (Negative); C & S Indicated? No; Casts Negative LPF (Negative); Crystals Negative HPF (Negative); Epithelial Cells Moderate HPF (Negative); Mucus Negative (Negative); RBC 0-2 HPF (0-2); WBC 0-2 HPF (0-5)
[2020-07-02] MEDS: INSULIN REGULAR IN 0.9 % NACL 100 UNIT/100 ML BAG 9 UNIT IV (16:02)
--- NOTE | 2020-07-02 16:04 | NUR.NOTE ---
Nursing Note: order for insulin double checked and started with Shabana VANG
[2020-07-02] MEDS: Normal Saline 1,000 ML 150 ML IV (16:35)
--- NOTE | 2020-07-02 16:37 | NUR.NOTE ---
PT AWAKE AND ALERT. VS STABLE. NO VOMITING. EATING ICE CHIPS WITHOUT DIFFICULTY. PT USING BSC WITHOUT ASSIST. STATES FEELING MUCH BETTER. INSULIN GTT CURRENTLY RUNNING AT 9/U/HR:
--- NOTE | 2020-07-02 16:59 | HPE_ITS ---
Date of service: 07/02/20 Time of Service: 16:30 Assessment and Plan Assessment and plan (1) DKA (diabetic ketoacidoses): Status: Acute Assessment and plan: The patient does not seem to have an infectious trigger for this event on this admission. It is concerning that she is describing a mal-functioning glucometer - perhaps, this is why this event occurred. The patient adamantly swears compliance to her insulin regimen. Her last A1C was 12.2, before this it was 13.1. In [facility] record, her prior A1Cs are listed in the range of 7. Admit the patient to the ICU with insulin drip as well as aggressive IVF. We will trend her chemistries/VBG Q4H. Will write for half of home dose of levemir. (2) Type 1 diabetes mellitus: Status: Chronic Assessment and plan: As above. The patient needs follow up diabetes education and a CGM. She must follow up with her headline writer as clearly her most recent A1Cs are a departure from her prior pattern. Qualifiers: Diabetes mellitus complication status: with hyperglycemia Qualified Code(s): E10.65 - Type 1 diabetes mellitus with hyperglycemia (3) Crohn's disease: Status: Chronic Assessment and plan: Not on therapy at this time. Patient does not feel that this is flaring up. Follow up as outpatient. (4) Gastroparesis due to DM: Status: Acute Assessment and plan: The patient describes her emetic contents this morning as food she ate last night, which is suggestive of gastroparesis. She should undergo a GES as outpatient. (5) DVT prophylaxis: Status: Acute Assessment and plan: TEDS/SCDS. Chemical DVT ppx is not indicated in an ambulatory 19 year old female (6) Discharge planning issues: Status: Acute Assessment and plan: Full code. Admit to the ICU. Total Critical Care Time 60 minutes. History of Present Illness History of Present Illness Chief Complaint: I was vomiting Narrative: Ms Dutta is a 19 year old female with PMHx of T1DM on basal bolus insulin, as well as h/o presently quiescent Crohn's disease, obesity with BMI of 31.3, whom the [facility] hospitalist service was asked to admit for DKA. The patient states that for the last week she had had a poor appetite, but did not feel otherwise sick. She had a normal dinner at 7:30 pm last night. She woke up with nausea and vomiting at 4:30 this am. She describes her emetic contents to look like the food she had had for dinner the night before but then turning to the appearance of pepsi. She states that after vomiting she did feel dizzy and eventually started to feel short of breath. She denies any fevers, changes to senses of taste or smell, shortness of breath before the current episode. The patient denies any dysuria or cough. She did have a little diarrhea this morning, but this since resolved. In the ED, she was afebrile, tachypneic, but not hypoxic. Her heart rate was noted to be in 120s. Her blood sugar was 536 by fingerstick. Her pH was 6.99 per VBG and her anion gap was 30. She was initiated on aggressive IVF and insulin drip. She does tell me that her meter at home read that her BG was 180 and that she thinks maybe that's what the problem is. Her insulin regimen is 15 units of levemir in am, 18 units at night. She carb counts with insulin lispro (1 unit: 15 grams CHO). Additionally, she uses a corrective scale of 1:40>150. She follows with Dr Maldonado at [facility]. She is very interested in getting a CGM. Review of Systems Narrative: Additionally, endorses anxiety which, she feels, is alleviated when she smokes marijuana All systems reviewed & are unremarkable except as noted in HPI and below PFSH Medical History (Updated 07/02/20 @ 17:47 by Kim De Oliveira MD) Crohn's disease Elevated blood pressure affecting in third trimester, antepartum Type 1 diabetes mellitus [facility] Endo; h/o hospitalizations for DKA Surgical History Colonoscopy - MAC (03/06/17) Family History (Updated 07/02/20 @ 17:41 by Kim De Oliveira MD) Maternal Grandfather Breast cancer Paternal Cousin Diabetes Maternal Grandfather Heart disease Mother Hypertension Social History (Updated 05/25/20 @ 15:29 by Hetal Leon NP) Smoking/Tobacco Use Status: Never Smoking risk assessment performed?: Yes Alcohol Intake: never Drug use: Occasionally Substance use type: marijuana Adopted: No Caregiver/Support person: Yes (2 month old ricardo) Household members: significant other, children and other Details: Fianc?: Glenn; 2-month-old (as of May 2020) Housing: house Number of Children: 1 Communication Needs: None Education Level: high school current occupation: [employer] Pets and animals: Yes Pets and animals: dog(s) Sexually active: Yes Do you think of yourself as: straight/heterosexual Current gender identity: female What is your relationship status?: living with partner Panel score (0-1 are the most socially isolated patients): 1 What type of physical activity do you participate in: walking Seatbelt use: always Helmet use: Yes Drive intox or ride w/intox route relief driver: Yes Working smoke detector in home: Yes Fire extinguisher in home: No Carbon monox detector in home: Yes Firearms in home: No Do you feel safe at home: Yes Do you feel safe in your relationship?: Yes Victim of physical abuse: No Victim of emotional abuse: No Victim of sexual abuse: No Female Reproductive History Menstrual Age of Menarche: 10 Duration of menses: 3-5 days control method: pills History History 1 Para 0 Hx # Term Pregnancies 0 Multiple births 0 Hx # Pregnancies 0 Ectopic pregnancies 0 AB induced 0 Hx Number of Living Children 0 AB spontaneous 0 Meds Home Medications and Allergies Home Medications Medication Instructions Recorded Confirmed Type pen needle, diabetic [BD #100 ea 05/20/20 05/25/20 Rx Ultra-Fine Gissel Pen Needle] pen needle, diabetic [BD #100 ea 05/20/20 05/25/20 Rx Ultra-Fine Gissel Pen Needle] insulin lispro 100 unit/mL 1 - 30 unit SC .AC (4-5 times 05/27/20 07/02/20 Rx subcutaneous pen daily) #45 syrg MDD 150 units Levemir FlexTouch U-100 Insuln See Rx Instructions .ROUTE .COMPLEX 07/02/20 07/02/20 History Allergies Allergy/AdvReac Type Severity Reaction Status Date / Time No Known Allergies Allergy Verified 07/02/20 14:36 Exam Narrative Exam Narrative: General: Pleasant, moderately tachypneic female, able to complete sentences when talking Neurological: A&Ox3, no focal deficits Psychiatric: Appropriate speech pattern/content, appropriate affect Skin: Visible skin dry, intact HEENT: Atraumatic, normocephalic, EOMI, dry MM, clear oropharynx, no submandibular or cervical lymphadenopathy, no goiter or JVD Cardiovascular: RRR, tachycardic, no m/r/g Lungs: CTAB Gastrointestinal: soft,nontender, nondistended Genitourinary: deferred Extremities: no e/c/c BLE's Results Labs Result diagrams: 07/02/20 14:32 07/02/20 14:32 Labs: Laboratory Results - last 24 hr 07/02/20 07/02/20 07/02/20 13:13 14:32 14:32 WBC 23.71 H RBC 5.67 H Hgb 16.1 H Hct 51.1 H MCV 90.1 MCH 28.4 MCHC 31.5 L RDW 13.3 Plt Count 608 H MPV 11.7 H Immature Gran % 0.0 Neutrophils % 90.0 Band Neutrophils % 5 Lymphocytes % 2.0 Atypical Lymphs % 2 Monocytes % 1.0 Eosinophils % 0.0 Basophils % 0.0 Nucleated RBC % 0 Absolute Neutrophils 22.52 H Absolute Lymphocytes 0.95 L Absolute Monocytes 0.24 Absolute Eosinophils 0.00 Absolute Basophils 0.00 RBC Morphology See below Poikilocytosis 1+ PT INR APTT VBG pH VBG pCO2 VBG pO2 VBG HCO3 VBG Total CO2 VBG O2 Saturation VBG Base Excess VBG Lactate Sodium 134 L Potassium 5.7 H Chloride 98 Carbon Dioxide 5.9 L Anion Gap 30.1 H BUN 17 Creatinine 1.30 H Estimated GFR/1.73 m2 52.22 Glucose 519 H* Calcium 10.1 Magnesium 2.2 Total Bilirubin 0.5 AST 20 ALT 19 Alkaline Phosphatase 148 H Troponin I < 0.05 Total Protein 10.1 H Albumin 5.1 H Urine Color Yellow Urine Clarity Clear Urine pH 5.5 Ur Specific [place] >= 1.030 H Urine Protein >=300 H Urine Ketones >=160 H Urine Blood Small H Urine Nitrite Negative Urine Bilirubin Negative Urine Urobilinogen 0.2 Ur Leukocyte Esterase Negative Urine RBC 0-2 Urine WBC 0-2 Ur Epithelial Cells Moderate Urine Crystals Negative Urine Bacteria Rare Urine Casts Negative Urine Mucus Negative Ur Culture Indicated? No Urine Glucose 500 H 07/02/20 07/02/20 07/02/20 14:32 14:32 14:32 WBC RBC Hgb Hct MCV MCH MCHC RDW Plt Count MPV Immature Gran % Neutrophils % Band Neutrophils % Lymphocytes % Atypical Lymphs % Monocytes % Eosinophils % Basophils % Nucleated RBC % Absolute Neutrophils Absolute Lymphocytes Absolute Monocytes Absolute Eosinophils Absolute Basophils RBC Morphology Poikilocytosis PT 10.3 INR 1.0 APTT 28.1 H VBG pH 6.99 L* VBG pCO2 21 L VBG pO2 69 VBG HCO3 5 L VBG Total CO2 5 L VBG O2 Saturation 87 VBG Base Excess < -15 L VBG Lactate 3.4 H* Sodium Potassium Chloride Carbon Dioxide Anion Gap BUN Creatinine Estimated GFR/1.73 m2 Glucose Calcium Magnesium Total Bilirubin AST ALT Alkaline Phosphatase Troponin I Total Protein Albumin Urine Color Urine Clarity Urine pH Ur Specific [place] Urine Protein Urine Ketones Urine Blood Urine Nitrite Urine Bilirubin Urine Urobilinogen Ur Leukocyte Esterase Urine RBC Urine WBC Ur Epithelial Cells Urine Crystals Urine Bacteria Urine Casts Urine Mucus Ur Culture Indicated? Urine Glucose Last Vital Signs Temp 36.3 C L 07/02/20 14:30 Pulse 111 H 07/02/20 16:31 Resp 21 07/02/20 16:31 BP 154/86 H 07/02/20 16:31 Pulse Ox 100 07/02/20 16:31 COVID-19 Screening Have you, or household traveled for leisure in last 14 days?: No Had IN PERSON contact w/suspected or confirmed C-19 person: No
[2020-07-02 18:13] LABS: Lactate 2.3 mmol/L (0.6-1.4)
[2020-07-02 18:14] LABS: HCO3 (Venous) 4 mmol/L (23-28); TCO2 (Venous) 4 mmol/L (24-29); pCO2 (Venous) 20 mmHg (41-51); pH (Venous) 6.92 (7.31-7.41); pO2 (Venous) 72 mmHg
[2020-07-02 18:15] LABS: O2 Sat (Venous) 88 %
[2020-07-02 18:18] LABS: Anion Gap 24.9 mmol/L (3-11); BUN 15 mg/dL (7-18); CO2 6.1 mmol/L (21.0-32.0); Calcium 9.1 mg/dL (8.5-10.1); Chloride 106 mmol/L (98-107); Glucose 316 mg/dL (74-106); Magnesium 2.2 mg/dL (1.8-2.4); Potassium 5.5 mmol/L (3.5-5.1); Sodium 137 mmol/L (136-145)
[2020-07-02 18:35] LABS: HCO3 (Venous) 5 mmol/L (23-28); O2 Sat (Venous) 70 %; TCO2 (Venous) 5 mmol/L (24-29); pCO2 (Venous) 26 mmHg (41-51); pO2 (Venous) 47 mmHg
[2020-07-02 18:39] LABS: pH (Venous) 6.93 (7.31-7.41)
[2020-07-02 18:41] LABS: PHOSPHORUS 4.9 mg/dL (2.6-4.7)
[2020-07-02] MEDS: Ondansetron 4 MG/2 ML VIAL IVP (19:35)
[2020-07-02] MEDS: DEXTROSE 5%-0.45% SALINE 1,000 ML 150 ML IV (21:21)
[2020-07-02] MEDS: Pantoprazole 40 MG VIAL IVP (21:23)
[2020-07-02] MEDS: Normal Saline Flush 10 ML SYR IVP (21:23)
[2020-07-02 22:39] LABS: HCO3 (Venous) 6 mmol/L (23-28); O2 Sat (Venous) 97 %; TCO2 (Venous) 5 mmol/L (24-29); pCO2 (Venous) 20 mmHg (41-51); pO2 (Venous) 103 mmHg
[2020-07-02 22:41] LABS: pH (Venous) 7.08 (7.31-7.41)
[2020-07-02 22:44] LABS: Anion Gap 22.4 mmol/L (3-11); BUN 12 mg/dL (7-18); CO2 6.6 mmol/L (21.0-32.0); CREATININE 1.06 mg/dL (0.55-1.02); Calcium 9.3 mg/dL (8.5-10.1); Chloride 107 mmol/L (98-107); Glucose 155 mg/dL (74-106); Sodium 136 mmol/L (136-145)
[2020-07-02 22:49] LABS: Potassium 5.2 mmol/L (3.5-5.1)
[2020-07-02 22:50] LABS: PHOSPHORUS 2.8 mg/dL (2.6-4.7)
[2020-07-03] VITALS (97 sets, daily range): BP systolic 35–145; BP diastolic 11–89; PULSE 63–122; RESP 10–27; TEMP 36.6–37; O2SAT 93–99
[2020-07-03 00:38] LABS: HCO3 (Venous) 8 mmol/L (23-28); O2 Sat (Venous) 97 %; TCO2 (Venous) 7 mmol/L (24-29); pCO2 (Venous) 20 mmHg (41-51); pO2 (Venous) 88 mmHg
[2020-07-03 00:40] LABS: pH (Venous) 7.18 (7.31-7.41)
[2020-07-03 00:48] LABS: Anion Gap 21.4 mmol/L (3-11); BUN 12 mg/dL (7-18); CO2 8.6 mmol/L (21.0-32.0); Calcium 9.4 mg/dL (8.5-10.1); Chloride 106 mmol/L (98-107); Glucose 147 mg/dL (74-106); Magnesium 1.9 mg/dL (1.8-2.4); Potassium 4.4 mmol/L (3.5-5.1); Sodium 136 mmol/L (136-145)
[2020-07-03 02:29] LABS: HCO3 (Venous) 11 mmol/L (23-28); O2 Sat (Venous) 86 %; TCO2 (Venous) 10 mmol/L (24-29); pCO2 (Venous) 27 mmHg (41-51); pH (Venous) 7.23 (7.31-7.41); pO2 (Venous) 47 mmHg
[2020-07-03] MEDS: Ondansetron 4 MG/2 ML VIAL IVP (02:35)
[2020-07-03 02:41] LABS: Anion Gap 16.9 mmol/L (3-11); BUN 12 mg/dL (7-18); CO2 13.1 mmol/L (21.0-32.0); CREATININE 1.13 mg/dL (0.55-1.02); Calcium 9.5 mg/dL (8.5-10.1); Chloride 106 mmol/L (98-107); Glucose 136 mg/dL (74-106); Magnesium 1.9 mg/dL (1.8-2.4); Potassium 4.2 mmol/L (3.5-5.1); Sodium 136 mmol/L (136-145)
[2020-07-03 04:12] LABS: HCO3 (Venous) 11 mmol/L (23-28); O2 Sat (Venous) 97 %; TCO2 (Venous) 10 mmol/L (24-29); pCO2 (Venous) 26 mmHg (41-51); pH (Venous) 7.25 (7.31-7.41); pO2 (Venous) 80 mmHg
[2020-07-03] MEDS: DEXTROSE 5%-0.45% SALINE 1,000 ML 150 ML IV (04:26)
[2020-07-03 04:32] LABS: Anion Gap 17.8 mmol/L (3-11); BUN 13 mg/dL (7-18); CO2 12.2 mmol/L (21.0-32.0); CREATININE 1.01 mg/dL (0.55-1.02); Calcium 9.5 mg/dL (8.5-10.1); Chloride 106 mmol/L (98-107); Glucose 132 mg/dL (74-106); Magnesium 1.8 mg/dL (1.8-2.4); Potassium 3.9 mmol/L (3.5-5.1); Sodium 136 mmol/L (136-145)
[2020-07-03] MEDS: INSULIN REGULAR IN 0.9 % NACL 100 UNIT/100 ML BAG IV (06:03)
[2020-07-03 06:36] LABS: Abs Immature Grans 0.22 10^3/uL (0.0-0.06); Absolute Monocyte Count 1.07 10^3/uL (0.1-0.8); BE (Venous) -15 mmol/L (-2-3); Basophils % 0.4; Eosinophils % 0.1; HCO3 (Venous) 12 mmol/L (23-28); HCT 42.2 % (36.0-46.0); HGB 14.1 g/dL (11.2-15.7); Immature Grans % 1.3; Lymphocytes % 7.9; MCH 28.4 pg (27.0-33.0); MCHC 33.4 % (32.0-36.0); MCV 84.9 fL (80-95); MPV 10.8 fL (8.0-11.0); Monocytes % 6.5; Neutrophils % 83.8; Nucleated RBC 0 %; O2 Sat (Venous) 99 %; Platelet Count 438 10^3/uL (130-400); RBC 4.97 10^6/uL (3.93-5.22); RDW 13.7 % (11.7-14.6); RDW-SD 42.5 fL; TCO2 (Venous) 11 mmol/L (24-29); pCO2 (Venous) 27 mmHg (41-51); pH (Venous) 7.27 (7.31-7.41); pO2 (Venous) 121 mmHg
[2020-07-03 06:48] LABS: Anion Gap 15.8 mmol/L (3-11); BUN 12 mg/dL (7-18); CO2 13.2 mmol/L (21.0-32.0); CREATININE 0.98 mg/dL (0.55-1.02); Calcium 9.4 mg/dL (8.5-10.1); Chloride 106 mmol/L (98-107); Glucose 133 mg/dL (74-106); Potassium 3.8 mmol/L (3.5-5.1); Sodium 135 mmol/L (136-145)
[2020-07-03 06:52] LABS: PHOSPHORUS 2.8 mg/dL (2.6-4.7)
[2020-07-03 07:08] LABS: Absolute Basophil Count 0.07 10^3/uL (0.0-0.2); Absolute Eosinophil Count 0.02 10^3/uL (0.0-0.7); Absolute Neutrophil Count 13.74 10^3/uL (1.2-6.7)
--- NOTE | 2020-07-03 08:17 | PGE_ITS ---
Date of Service Date of service: 07/03/20 Time of Service: 12:45 Assessment and Plan Assessment and plan (1) DKA (diabetic ketoacidoses): Status: Acute Assessment and plan: There does not seem to be an infectious trigger. It is concerning that she is describing a mal-functioning glucometer. Post- depression is also a possibility. The patient continues to require an insulin drip. As she is requesting a diet, I wrote her for concurrent carb counting prandial insulin. Continue to monitor and replete K, as well as her AG/bicarb, etc. Increase basal insulin to 15 units BID. Met with diabetes education. (2) Type 1 diabetes mellitus: Status: Chronic Assessment and plan: As above. A1C 12.2. I have sent a prescription for leyla 2 CGM to her pharmacy - it will be available on Monday. She will need outpatient follow up with diabetes education. Question of a broken glucometer at home addressed - she has a new glucometer at bedside. Qualifiers: Diabetes mellitus complication status: with hyperglycemia Qualified Code(s): E10.65 - Type 1 diabetes mellitus with hyperglycemia (3) Gastroparesis due to DM: Status: Acute Assessment and plan: This is difficult to truly assess during acute DKA as gastric emptying slows with hyperglycemia. She will need an outpatient gastric emptying study. (4) Crohn's disease: Status: Chronic Assessment and plan: Quiescent. Follow up as outpatient (5) DVT prophylaxis: Status: Acute Assessment and plan: Chemical DVT ppx is not required in an ambulatory 19 year old female. Written for TEDs/SCDs (6) Discharge planning issues: Status: Acute Assessment and plan: Full code Anticipate discharge home tomorrow. Will need outpatient diabetes education. Total Critical Care Time 40 minutes. Subjective Subjective Interval history since last seen: Ms Dutta is very anxious and tearful. She wants to go home to her baby. She does not understand why she has to be on all these drips when her blood sugar is fine. I explained to her that she is still in DKA, that she still needs to be on IV insulin and IV fluids. I offered her to have a diet - and she finally agreed to have dinner. Vomited twice last night, but no n/v during the day. No abdominal pain. Denies dizzines, chest pain, shortness of breath. She is threatening to leave AMA. I advised her not to and that people from untreated DKA. I have ordered her Leyla 2 and her pharmacy will have it for her on Monday. Exam Narrative Exam Narrative: General: Very anxious female, tearful, not letting me complete sentences, not tachypneic HEENT: Atraumatic, normocephalic, EOMI, MMM Cardiovascular: RRR, tachycardic - up to 150s, no m/r/g Lungs: CTAB Gastrointestinal: soft,nontender, nondistended Extremities: no e/c/c BLE's Objective Last Vital Signs Temp 37 C 07/03/20 03:43 Pulse 85 07/03/20 05:01 Resp 21 07/03/20 05:30 BP 137/84 07/03/20 05:01 Pulse Ox 97 07/03/20 05:30 Laboratory Results - last 24 hr 07/02/20 07/02/20 07/02/20 13:13 14:32 14:32 WBC 23.71 H RBC 5.67 H Hgb 16.1 H Hct 51.1 H MCV 90.1 MCH 28.4 MCHC 31.5 L RDW 13.3 Plt Count 608 H MPV 11.7 H Immature Gran % 0.0 Neutrophils % 90.0 Band Neutrophils % 5 Lymphocytes % 2.0 Atypical Lymphs % 2 Monocytes % 1.0 Eosinophils % 0.0 Basophils % 0.0 Nucleated RBC % 0 Absolute Neutrophils 22.52 H Absolute Lymphocytes 0.95 L Absolute Monocytes 0.24 Absolute Eosinophils 0.00 Absolute Basophils 0.00 RBC Morphology See below Poikilocytosis 1+ PT INR APTT VBG pH VBG pCO2 VBG pO2 VBG HCO3 VBG Total CO2 VBG O2 Saturation VBG Base Excess VBG Lactate Sodium 134 L Potassium 5.7 H Chloride 98 Carbon Dioxide 5.9 L Anion Gap 30.1 H BUN 17 Creatinine 1.30 H Estimated GFR/1.73 m2 52.22 Glucose 519 H* Calcium 10.1 Phosphorus Magnesium 2.2 Total Bilirubin 0.5 AST 20 ALT 19 Alkaline Phosphatase 148 H Troponin I < 0.05 Total Protein 10.1 H Albumin 5.1 H Urine Color Yellow Urine Clarity Clear Urine pH 5.5 Ur Specific [place] >= 1.030 H Urine Protein >=300 H Urine Ketones >=160 H Urine Blood Small H Urine Nitrite Negative Urine Bilirubin Negative Urine Urobilinogen 0.2 Ur Leukocyte Esterase Negative Urine RBC 0-2 Urine WBC 0-2 Ur Epithelial Cells Moderate Urine Crystals Negative Urine Bacteria Rare Urine Casts Negative Urine Mucus Negative Ur Culture Indicated? No Urine Glucose 500 H 07/02/20 07/02/20 07/02/20 14:32 14:32 14:32 WBC RBC Hgb Hct MCV MCH MCHC RDW Plt Count MPV Immature Gran % Neutrophils % Band Neutrophils % Lymphocytes % Atypical Lymphs % Monocytes % Eosinophils % Basophils % Nucleated RBC % Absolute Neutrophils Absolute Lymphocytes Absolute Monocytes Absolute Eosinophils Absolute Basophils RBC Morphology Poikilocytosis PT 10.3 INR 1.0 APTT 28.1 H VBG pH 6.99 L* VBG pCO2 21 L VBG pO2 69 VBG HCO3 5 L VBG Total CO2 5 L VBG O2 Saturation 87 VBG Base Excess < -15 L VBG Lactate 3.4 H* Sodium Potassium Chloride Carbon Dioxide Anion Gap BUN Creatinine Estimated GFR/1.73 m2 Glucose Calcium Phosphorus Magnesium Total Bilirubin AST ALT Alkaline Phosphatase Troponin I Total Protein Albumin Urine Color Urine Clarity Urine pH Ur Specific [place] Urine Protein Urine Ketones Urine Blood Urine Nitrite Urine Bilirubin Urine Urobilinogen Ur Leukocyte Esterase Urine RBC Urine WBC Ur Epithelial Cells Urine Crystals Urine Bacteria Urine Casts Urine Mucus Ur Culture Indicated? Urine Glucose 07/02/20 07/02/20 07/02/20 18:00 18:00 18:00 WBC RBC Hgb Hct MCV MCH MCHC RDW Plt Count MPV Immature Gran % Neutrophils % Band Neutrophils % Lymphocytes % Atypical Lymphs % Monocytes % Eosinophils % Basophils % Nucleated RBC % Absolute Neutrophils Absolute Lymphocytes Absolute Monocytes Absolute Eosinophils Absolute Basophils RBC Morphology Poikilocytosis PT INR APTT VBG pH VBG pCO2 VBG pO2 VBG HCO3 VBG Total CO2 VBG O2 Saturation VBG Base Excess VBG Lactate 2.3 H* Sodium 137 Potassium 5.5 H Chloride 106 Carbon Dioxide 6.1 L Anion Gap 24.9 H BUN 15 Creatinine 1.10 H Estimated GFR/1.73 m2 >= 60.00 Glucose 316 H D Calcium 9.1 Phosphorus 4.9 H Magnesium 2.2 Total Bilirubin AST ALT Alkaline Phosphatase Troponin I Total Protein Albumin Urine Color Urine Clarity Urine pH Ur Specific [place] Urine Protein Urine Ketones Urine Blood Urine Nitrite Urine Bilirubin Urine Urobilinogen Ur Leukocyte Esterase Urine RBC Urine WBC Ur Epithelial Cells Urine Crystals Urine Bacteria Urine Casts Urine Mucus Ur Culture Indicated? Urine Glucose 07/02/20 07/02/20 07/02/20 18:00 18:30 22:15 WBC RBC Hgb Hct MCV MCH MCHC RDW Plt Count MPV Immature Gran % Neutrophils % Band Neutrophils % Lymphocytes % Atypical Lymphs % Monocytes % Eosinophils % Basophils % Nucleated RBC % Absolute Neutrophils Absolute Lymphocytes Absolute Monocytes Absolute Eosinophils Absolute Basophils RBC Morphology Poikilocytosis PT INR APTT VBG pH 6.92 L* 6.93 L* VBG pCO2 20 L 26 L VBG pO2 72 47 VBG HCO3 4 L 5 L VBG Total CO2 4 L 5 L VBG O2 Saturation 88 70 VBG Base Excess < -15 L < -15 L VBG Lactate Sodium Potassium Chloride Carbon Dioxide Anion Gap BUN Creatinine Estimated GFR/1.73 m2 Glucose Calcium Phosphorus 2.8 Magnesium 2.0 Total Bilirubin AST ALT Alkaline Phosphatase Troponin I Total Protein Albumin Urine Color Urine Clarity Urine pH Ur Specific [place] Urine Protein Urine Ketones Urine Blood Urine Nitrite Urine Bilirubin Urine Urobilinogen Ur Leukocyte Esterase Urine RBC Urine WBC Ur Epithelial Cells Urine Crystals Urine Bacteria Urine Casts Urine Mucus Ur Culture Indicated? Urine Glucose 07/02/20 07/02/20 07/02/20 22:15 22:15 22:15 WBC RBC Hgb Hct MCV MCH MCHC RDW Plt Count MPV Immature Gran % Neutrophils % Band Neutrophils % Lymphocytes % Atypical Lymphs % Monocytes % Eosinophils % Basophils % Nucleated RBC % Absolute Neutrophils Absolute Lymphocytes Absolute Monocytes Absolute Eosinophils Absolute Basophils RBC Morphology Poikilocytosis PT INR APTT VBG pH 7.08 L* VBG pCO2 20 L VBG pO2 103 VBG HCO3 6 L VBG Total CO2 5 L VBG O2 Saturation 97 VBG Base Excess < -15 L VBG Lactate 2.0 H Sodium 136 Potassium 5.2 H Chloride 107 Carbon Dioxide 6.6 L Anion Gap 22.4 H BUN 12 Creatinine 1.06 H Estimated GFR/1.73 m2 >= 60.00 Glucose 155 H D Calcium 9.3 Phosphorus Magnesium Total Bilirubin AST ALT Alkaline Phosphatase Troponin I Total Protein Albumin Urine Color Urine Clarity Urine pH Ur Specific [place] Urine Protein Urine Ketones Urine Blood Urine Nitrite Urine Bilirubin Urine Urobilinogen Ur Leukocyte Esterase Urine RBC Urine WBC Ur Epithelial Cells Urine Crystals Urine Bacteria Urine Casts Urine Mucus Ur Culture Indicated? Urine Glucose 11/20/20 11/20/20 11/20/20 00:15 00:15 00:15 WBC RBC Hgb Hct MCV MCH MCHC RDW Plt Count MPV Immature Gran % Neutrophils % Band Neutrophils % Lymphocytes % Atypical Lymphs % Monocytes % Eosinophils % Basophils % Nucleated RBC % Absolute Neutrophils Absolute Lymphocytes Absolute Monocytes Absolute Eosinophils Absolute Basophils RBC Morphology Poikilocytosis PT INR APTT VBG pH 7.18 L* VBG pCO2 20 L VBG pO2 88 VBG HCO3 8 L VBG Total CO2 7 L VBG O2 Saturation 97 VBG Base Excess < -15 L VBG Lactate Sodium 136 Potassium 4.4 Chloride 106 Carbon Dioxide 8.6 L Anion Gap 21.4 H BUN 12 Creatinine 1.10 H Estimated GFR/1.73 m2 >= 60.00 Glucose 147 H Calcium 9.4 Phosphorus Magnesium 1.9 Total Bilirubin AST ALT Alkaline Phosphatase Troponin I Total Protein Albumin Urine Color Urine Clarity Urine pH Ur Specific [place] Urine Protein Urine Ketones Urine Blood Urine Nitrite Urine Bilirubin Urine Urobilinogen Ur Leukocyte Esterase Urine RBC Urine WBC Ur Epithelial Cells Urine Crystals Urine Bacteria Urine Casts Urine Mucus Ur Culture Indicated? Urine Glucose 07/03/20 07/03/20 07/03/20 02:20 02:20 02:20 WBC RBC Hgb Hct MCV MCH MCHC RDW Plt Count MPV Immature Gran % Neutrophils % Band Neutrophils % Lymphocytes % Atypical Lymphs % Monocytes % Eosinophils % Basophils % Nucleated RBC % Absolute Neutrophils Absolute Lymphocytes Absolute Monocytes Absolute Eosinophils Absolute Basophils RBC Morphology Poikilocytosis PT INR APTT VBG pH 7.23 L VBG pCO2 27 L VBG pO2 47 VBG HCO3 11 L VBG Total CO2 10 L VBG O2 Saturation 86 VBG Base Excess < -15 L VBG Lactate Sodium 136 Potassium 4.2 Chloride 106 Carbon Dioxide 13.1 L Anion Gap 16.9 H BUN 12 Creatinine 1.13 H Estimated GFR/1.73 m2 >= 60.00 Glucose 136 H Calcium 9.5 Phosphorus Magnesium 1.9 Total Bilirubin AST ALT Alkaline Phosphatase Troponin I Total Protein Albumin Urine Color Urine Clarity Urine pH Ur Specific [place] Urine Protein Urine Ketones Urine Blood Urine Nitrite Urine Bilirubin Urine Urobilinogen Ur Leukocyte Esterase Urine RBC Urine WBC Ur Epithelial Cells Urine Crystals Urine Bacteria Urine Casts Urine Mucus Ur Culture Indicated? Urine Glucose 07/03/20 07/03/20 07/03/20 04:05 04:05 06:25 WBC RBC Hgb Hct MCV MCH MCHC RDW Plt Count MPV Immature Gran % Neutrophils % Band Neutrophils % Lymphocytes % Atypical Lymphs % Monocytes % Eosinophils % Basophils % Nucleated RBC % Absolute Neutrophils Absolute Lymphocytes Absolute Monocytes Absolute Eosinophils Absolute Basophils RBC Morphology Poikilocytosis PT INR APTT VBG pH 7.25 L VBG pCO2 26 L VBG pO2 80 VBG HCO3 11 L VBG Total CO2 10 L VBG O2 Saturation 97 VBG Base Excess < -15 L VBG Lactate Sodium 136 135 L Potassium 3.9 3.8 Chloride 106 106 Carbon Dioxide 12.2 L 13.2 L Anion Gap 17.8 H 15.8 H BUN 13 12 Creatinine 1.01 0.98 Estimated GFR/1.73 m2 >= 60.00 >= 60.00 Glucose 132 H 133 H Calcium 9.5 9.4 Phosphorus Magnesium 1.8 Total Bilirubin AST ALT Alkaline Phosphatase Troponin I Total Protein Albumin Urine Color Urine Clarity Urine pH Ur Specific [place] Urine Protein Urine Ketones Urine Blood Urine Nitrite Urine Bilirubin Urine Urobilinogen Ur Leukocyte Esterase Urine RBC Urine WBC Ur Epithelial Cells Urine Crystals Urine Bacteria Urine Casts Urine Mucus Ur Culture Indicated? Urine Glucose 07/03/20 07/03/20 07/03/20 06:25 06:25 06:25 WBC 16.40 H D RBC 4.97 Hgb 14.1 Hct 42.2 MCV 84.9 D MCH 28.4 MCHC 33.4 RDW 13.7 Plt Count 438 H MPV 10.8 Immature Gran % 1.3 Neutrophils % 83.8 Band Neutrophils % Lymphocytes % 7.9 Atypical Lymphs % Monocytes % 6.5 Eosinophils % 0.1 Basophils % 0.4 Nucleated RBC % 0 Absolute Neutrophils 13.74 H Absolute Lymphocytes 1.30 Absolute Monocytes 1.07 H Absolute Eosinophils 0.02 Absolute Basophils 0.07 RBC Morphology Poikilocytosis PT INR APTT VBG pH 7.27 L VBG pCO2 27 L VBG pO2 121 VBG HCO3 12 L VBG Total CO2 11 L VBG O2 Saturation 99 VBG Base Excess -15 L VBG Lactate Sodium Potassium Chloride Carbon Dioxide Anion Gap BUN Creatinine Estimated GFR/1.73 m2 Glucose Calcium Phosphorus 2.8 Magnesium Total Bilirubin AST ALT Alkaline Phosphatase Troponin I Total Protein Albumin Urine Color Urine Clarity Urine pH Ur Specific [place] Urine Protein Urine Ketones Urine Blood Urine Nitrite Urine Bilirubin Urine Urobilinogen Ur Leukocyte Esterase Urine RBC Urine WBC Ur Epithelial Cells Urine Crystals Urine Bacteria Urine Casts Urine Mucus Ur Culture Indicated? Urine Glucose
[2020-07-03 08:18] LABS: COVID-19 RT-PCR UVMMC Result Negative (Negative)
[2020-07-03] MEDS: MAGNESIUM SULFATE 2 GM/50 ML BAG IVPB (08:52)
[2020-07-03] MEDS: DEXTROSE 5%-LACTATED RINGERS 1,000 ML 150 ML IV (11:00)
[2020-07-03 11:33] LABS: BE (Venous) -13 mmol/L (-2-3); HCO3 (Venous) 14 mmol/L (23-28); O2 Sat (Venous) 98 %; TCO2 (Venous) 12 mmol/L (24-29); pCO2 (Venous) 28 mmHg (41-51); pO2 (Venous) 90 mmHg
[2020-07-03 11:45] LABS: BUN 11 mg/dL (7-18); CREATININE 0.92 mg/dL (0.55-1.02); Calcium 9.6 mg/dL (8.5-10.1); Chloride 107 mmol/L (98-107); Glucose 103 mg/dL (74-106); Magnesium 2.3 mg/dL (1.8-2.4); Potassium 3.5 mmol/L (3.5-5.1); Sodium 139 mmol/L (136-145)
--- NOTE | 2020-07-03 12:41 | DM INPTCON_ITS ---
Date of service: 07/03/20 Time of Service: 12:41 Diabetes Inpatient Consult DESCRIPTION/ASSESSMENT: Monica is a 19 year old type 1 Diabetic, 4 months post and presents for second time in last 2 months with DKA/ICU admission. PMH: Crohns Dx with hx of taking humira. Monica has been DM1 for 5 years. She reports that gastroparesis typically gets better when she is on humira. She is back to baseline/prepregnancy weight. She is bottle feeding her daughter. Monica reports that her BS meter read 180 mg/dl prior to DKA with reading of 536 mg/dl in ER. She reports eating 3 meals a day and taking insulin as perscribed. Her home DM meds include 15 u levemire in AM, 18 u levemir at HS with a correction scale of 1:40 carb ration > 150 mg/dl at meal time. Most recent A1C = 12.5% indicating BS averages of > 250 mg/dl. She had good glycemic control during , however, since giving her diabetes has been in poor control. I met with Monica today to discuss blood sugar control. She is interested in getting the Libre2 Continuous Glucose Monitor. Her OP pharmacy will have it for picker packer on 07/06/20 and Monica has appt. with flex o writer operator on 07/07 at 2pm for education/applying sensor and setting up remote monitoring. She denies depression, food insecurity and did not want a referral to [facility] or [facility] Health referral. It is concerning that this is the second DKA she has experienced post . The CGM will provide alarms for low and high blood s ugars and will give her ability to correct before DKA occurs going forward. She will also be able to share her data with medical providers and family members for more comprehensive diabetes self management. Monica received ACCU Check Guide me meter for use until CGM available INTERVENTION: Currently on insulin drip, will discharge on insulin recomme ndations per MD 07/07/20 @ 2pm appt with flex o writer operator to apply CGM and get education on use PLAN: MD will write script for CGM. Once available per outpatient pharmacy, Monica will return on 07/07/20 for education with flex o writer operator Time Spent in Nutritional Counseling and Treatment: 30 min
[2020-07-03 14:21] LABS: BE (Venous) -11 mmol/L (-2-3); HCO3 (Venous) 14 mmol/L (23-28); O2 Sat (Venous) > 99 %; pCO2 (Venous) 26 mmHg (41-51); pH (Venous) 7.35 (7.31-7.41); pO2 (Venous) 142 mmHg
[2020-07-03 14:38] LABS: Anion Gap 15.3 mmol/L (3-11); BUN 11 mg/dL (7-18); CO2 14.7 mmol/L (21.0-32.0); CREATININE 0.89 mg/dL (0.55-1.02); Calcium 9.2 mg/dL (8.5-10.1); Chloride 108 mmol/L (98-107); Glucose 128 mg/dL (74-106); Potassium 3.2 mmol/L (3.5-5.1); Sodium 138 mmol/L (136-145)
--- NOTE | 2020-07-03 15:16 | PHACLINREV_ITS ---
Pharmacy Admission Review - Admission Clinical Review (Last Updated 05/25/20 @ 15:23 by Hetal Leon NP) Discharge planning issues (Acute) DVT prophylaxis (Acute) Gastroparesis due to DM (Acute) DKA (diabetic ketoacidoses) (Acute) Nausea and vomiting (Acute) No Known Allergies Allergy (Verified 07/02/20 14:36) Height 5 ft 7 in Weight 77.9 kg - Renal Dosing Renal Dosing: BUN 11 mg/dL (7-18) 07/03/20 14:13 Creatinine 0.89 mg/dL (0.55-1.02) 07/03/20 14:13 Medications needing adjustments: Reviewed - Anticoagulation Anticoagulation: Hgb 14.1 g/dL (11.2-15.7) 07/03/20 06:25 Hct 42.2 % (36.0-46.0) 07/03/20 06:25 Plt Count 438 10^3/uL (130-400) H 07/03/20 06:25 INR 1.0 (0.9-1.1) 07/02/20 14:32 Creatinine 0.89 mg/dL (0.55-1.02) 07/03/20 14:13 DVT Prohphylaxis: N/A Therapeutic Anticoagulation: N/A - Opiate Usage Evaluate Pain Scale/Pains Meds: N/A - Relevant Labs Sodium 138 mmol/L (136-145) 07/03/20 14:13 Potassium 3.2 mmol/L (3.5-5.1) L 07/03/20 14:13 Chloride 108 mmol/L (98-107) H 07/03/20 14:13 Phosphorus 2.8 mg/dL (2.6-4.7) 07/03/20 06:25 Magnesium 2.3 mg/dL (1.8-2.4) 07/03/20 11:25 Electrolytes, C-Reactive P, ESR: Reviewed - DM Control DM Control: Glucose 128 mg/dL (74-106) H 07/03/20 14:13 Finger Stick Blood Glucose 118 Finger Stick Blood Glucose 132 Finger Stick Blood Glucose 85 Finger Stick Blood Glucose 105 Finger Stick Blood Glucose 127 Insulin Dosing: Reviewed (insulin drip is being titrated down and home dose leve anahy has been started) - Heart Failure/OK Heart Failure/OK: Troponin I < 0.05 ng/mL (<0.06) 07/02/20 14:32 EF%, ISRA's, B-Blockers, Diuretics: N/A - BP Control BP Control: Blood Pressure [Right Arm] 130/79 Blood Pressure [Right Arm] 135/78 Blood Pressure [Right Arm] 135/78 Blood Pressure 137/84 If elevated: Reviewed - Qtc Review If Elevated: N/A - IV to PO Switch IV Medications: Reviewed - Home Meds Home Med List reviewed: Reviewed - Current meds Current Medication Order Review: Reviewed
--- NOTE | 2020-07-03 15:26 | INITIAL_ITS ---
- If Service Date Differs Date of service: 07/03/20 Time of Service: 15:26 Care Management Initial Assess REASON FOR HOSPITALIZATION:: DKA PREVIOUS FUNCTIONAL STATUS/SOCIAL/FAMILY SUPPORTS:: Monica resides in [place], [place] with her fiance and their daughter. 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. She is independent at baseline in the community. She follows with endocrinology at [facility] she states all of her care has been remote since COVID guidelines. CURRENT FUNCTIONAL STATUS:: Monica is alert and engaged with CM she states that she was unable to receive her CGM. She states her glucometer has not been workin g and she has been unaware of her elevated blood sugars. She feels supported with her DM management and her new relationship with DM educator. Monica describes a good support system, both maternal and parternal grandparent cares for her daughter. Monica states she enjoys working with mental health and enjoys her job. ADVANCE DIRECTIVES:: None on file - CM offered forms she declines at this time Has patient been provided with info about the portal/API?: Yes Did the patient sign up for the portal?: No CODE STATUS:: Full Code INSURANCE COVERAGE / FINANCIAL ISSUES:: [employer] CURRENT HOME/COMMUNITY SERVICES/EQUIPMENT:: CGM to be placed on 07/07/20 CM contacted [employer] and confirmed the CGM is covered and will be in on Monday for parts picker. CM will fax all Monica's informaiton to [facility] endocrinology for close follow up. PRIMARY CARE PHYSICIAN:: Hetal Leon POTENTIAL DISCHARGE NEEDS:: DC summary faxed to [facility] endocrinology, follow up scheduled with primary care, CGM placement scheduled for 07/07/20 PATIENT/FAMILY EDUCATION NEEDS:: Discharge education, limitations and follow up plan of care including ask me three and self management ANTICIPATED BARRIERS TO DISCHARGE:: None identified TRANSPORTATION:: Via private car with family at time of discharge. PLAN:: Monica remains in the ICU, she continues on an insulin drip when CM is completing assessment. Monica understands the plan of care and follow up plan.
[2020-07-03] MEDS: Pantoprazole 40 MG VIAL IVP (18:08)
[2020-07-03] MEDS: POTASSIUM CHLORIDE 20 MEQ/100 ML BAG 50 MEQ IVPB ×2 (18:10→20:34)
[2020-07-03] MEDS: Normal Saline Flush 10 ML SYR IVP (18:11)
[2020-07-03 19:08] LABS: BE (Venous) -9 mmol/L (-2-3); HCO3 (Venous) 17 mmol/L (23-28); O2 Sat (Venous) 96 %; TCO2 (Venous) 15 mmol/L (24-29); pCO2 (Venous) 31 mmHg (41-51); pH (Venous) 7.34 (7.31-7.41); pO2 (Venous) 72 mmHg
[2020-07-03 19:15] LABS: Anion Gap 10.9 mmol/L (3-11); BUN 10 mg/dL (7-18); CO2 18.1 mmol/L (21.0-32.0); CREATININE 0.92 mg/dL (0.55-1.02); Calcium 9.2 mg/dL (8.5-10.1); Chloride 109 mmol/L (98-107); Glucose 109 mg/dL (74-106); Potassium 3.2 mmol/L (3.5-5.1); Sodium 138 mmol/L (136-145)
[2020-07-03 22:07] LABS: BE (Venous) -10 mmol/L (-2-3); HCO3 (Venous) 16 mmol/L (23-28); O2 Sat (Venous) 98 %; TCO2 (Venous) 14 mmol/L (24-29); pCO2 (Venous) 29 mmHg (41-51); pH (Venous) 7.34 (7.31-7.41); pO2 (Venous) 97 mmHg
[2020-07-03 22:18] LABS: Anion Gap 11.2 mmol/L (3-11); BUN 10 mg/dL (7-18); CO2 16.8 mmol/L (21.0-32.0); CREATININE 0.83 mg/dL (0.55-1.02); Chloride 109 mmol/L (98-107); Glucose 142 mg/dL (74-106); Potassium 3.8 mmol/L (3.5-5.1); Sodium 137 mmol/L (136-145)
[2020-07-04] VITALS (14 sets, daily range): BP systolic 116–138; BP diastolic 74–90; PULSE 59–83; RESP 14–21; TEMP 36.5–36.7; O2SAT 95–97
[2020-07-04 02:10] LABS: Anion Gap 8.9 mmol/L (3-11); BUN 9 mg/dL (7-18); CO2 21.1 mmol/L (21.0-32.0); CREATININE 0.91 mg/dL (0.55-1.02); Calcium 8.9 mg/dL (8.5-10.1); Chloride 109 mmol/L (98-107); Glucose 121 mg/dL (74-106); Potassium 3.4 mmol/L (3.5-5.1); Sodium 139 mmol/L (136-145)
[2020-07-04 06:44] LABS: BE (Venous) -7 mmol/L (-2-3); HCO3 (Venous) 19 mmol/L (23-28); O2 Sat (Venous) 96 %; TCO2 (Venous) 17 mmol/L (24-29); pCO2 (Venous) 36 mmHg (41-51); pH (Venous) 7.33 (7.31-7.41); pO2 (Venous) 80 mmHg
[2020-07-04 06:46] LABS: Abs Immature Grans 0.07 10^3/uL (0.0-0.06); Absolute Basophil Count 0.03 10^3/uL (0.0-0.2); Absolute Lymphocyte Count 1.11 10^3/uL (1.2-3.4); Absolute Monocyte Count 0.54 10^3/uL (0.1-0.8); Basophils % 0.4; Eosinophils % 1.4; HCT 37.7 % (36.0-46.0); HGB 12.5 g/dL (11.2-15.7); Lymphocytes % 15.9; MCH 28.1 pg (27.0-33.0); MCHC 33.2 % (32.0-36.0); MCV 84.7 fL (80-95); Monocytes % 7.7; Neutrophils % 73.6; Nucleated RBC 0 %; RBC 4.45 10^6/uL (3.93-5.22); RDW-SD 43.5 fL
[2020-07-04 06:49] LABS: Absolute Neutrophil Count 5.13 10^3/uL (1.2-6.7); WBC 6.97 10^3/uL (4.4-10.8)
[2020-07-04 06:50] LABS: Platelet Count 334 10^3/uL (130-400)
[2020-07-04 06:58] LABS: Anion Gap 9.1 mmol/L (3-11); BUN 8 mg/dL (7-18); CO2 18.9 mmol/L (21.0-32.0); CREATININE 0.83 mg/dL (0.55-1.02); Calcium 8.8 mg/dL (8.5-10.1); Chloride 110 mmol/L (98-107); Glucose 153 mg/dL (74-106); Magnesium 1.6 mg/dL (1.8-2.4); Potassium 3.8 mmol/L (3.5-5.1); Sodium 138 mmol/L (136-145)
--- NOTE | 2020-07-04 09:17 | PDOC.CMPRO ---
- If Service Date Differs Date of service: 07/04/20 Time of Service: 09:17 Care Management Progress Note S/O:Monica remains in the ICU. Her insulin drip has been discontinued and her blood glucose levels are improving. Monica was very tearful when CM met with her, as she had hoped to go home. She stated that she misses her 3 month old daughter and her fiancee. Her baby was in NICU for a while and she shared that she feels they are being cheated out of time together during this crucial stage of development. Monica revealed that she has an appointment on Monday to have her CGM applied. She is hopeful that this will help her to get her diabetes under better control. A: Monica is a 19 year old young lady admitted on 07/02/20 with DKA P: Monica remains in ICU but the insulin drip has been discontinued. Monica will likely be discharged home tomorrow with outpatient follow up for her diabetes. She will follow up with her PCP and discharge plan of care and transport with family. CM will continue to support Monica, her family and her discharge planning needs. cc:
[2020-07-04] MEDS: Insulin Aspart 300 UNITS/3 ML PEN SC ×5 (09:59→16:07)
--- NOTE | 2020-07-04 10:53 | W.PM.PROGNOT ---
Date of Service Date of service: 07/04/20 Time of Service: 10:53 Assessment and Plan Assessment and plan (1) DKA (diabetic ketoacidoses): Status: Acute Assessment and plan: Now off the insulin drip and tolerating her diet. Continue to monitor her blood sugars this morning and repeat her BMP at noon time. If anion gap remains resolved we will discharge her home. Patient will get a CGM next week. I think she needs to have her glucose meter brought in when she meets with the diabetic nurse educator. In the interim she has a new glucometer at the bedside arranged through the diabetic nurse educator. Qualifiers: Diabetes mellitus type: type 1 Diabetes mellitus complication detail: without coma Qualified Code(s): E10.10 - Type 1 diabetes mellitus with ketoacidosis without coma (2) Type 1 diabetes mellitus: Status: Chronic Assessment and plan: As above. A1C 12.2. Dr. De Oliveira sent a prescription for jas 2 CGM to her pharmacy - it will be available on Monday. She will need outpatient follow up with diabetes education. Question of a broken glucometer at home addressed - she has a new glucometer at bedside. Given that her A1c is elevated this would suggest that her type 1 diabetes has been out of control for some time. She states that prior to her her blood sugars ran between 100-150 mg/dL at home all the time. Qualifiers: Diabetes mellitus complication status: with hyperglycemia Qualified Code(s): E10.65 - Type 1 diabetes mellitus with hyperglycemia (3) Gastroparesis due to DM: Status: Acute Assessment and plan: This is difficult to truly assess during acute DKA as gastric emptying slows with hyperglycemia. She will need an outpatient gastric emptying study. This will be scheduled upon discharge (4) Crohn's disease: Status: Chronic Assessment and plan: Quiescent. Follow up as outpatient (5) DVT prophylaxis: Status: Acute Assessment and plan: Chemical DVT ppx is not required in an ambulatory 19 year old female. Written for TEDs/SCDs (6) Discharge planning issues: Status: Acute Subjective Subjective Interval history since last seen: Patient is feeling better this morning no nausea or vomiting. She ate a half a bagel for breakfast. Her anion gap is now normalized at 9.1 although her bicarbonate level remains below normal at 19. Lab drawn glucose was 153 this morning. Fasting fingerstick blood sugar is 163 although her postprandial glucose is 152. She received 15 units of Levemir this morning prior to discontinuation of her insulin drip. She also received 2 units of NovoLog with her breakfast. Patient is requesting to be discharged home this morning. I advised her to wait and make sure that her anion gap remains resolved now that her insulin drip has been discontinued. I will repeat her BMP at noon time. She feels that her DKA was precipitated by an inaccurate glucometer. Dr. De Oliveira is written for her to get a CGM which the patient will return to meet with the clinical document improvement educator next week for the CGM. Exam Narrative Exam Narrative: None female sitting up in her bed in no discomfort or distress. She is alert and oriented person place time circumstance. Lungs are clear to auscultation. Heart regular rate and rhythm. Abdomen soft nontender NABS nondistention Objective Last Vital Signs Temp 36.5 C 07/04/20 07:30 Pulse 63 07/04/20 07:30 Resp 14 07/04/20 08:00 BP 138/90 07/04/20 07:30 Pulse Ox 97 07/04/20 08:00 Laboratory Results - last 24 hr 07/03/20 07/03/20 07/03/20 11:25 11:25 14:13 WBC RBC Hgb Hct MCV MCH MCHC RDW Plt Count MPV Immature Gran % Neutrophils % Lymphocytes % Monocytes % Eosinophils % Basophils % Nucleated RBC % Absolute Neutrophils Absolute Lymphocytes Absolute Monocytes Absolute Eosinophils Absolute Basophils VBG pH 7.30 L VBG pCO2 28 L VBG pO2 90 VBG HCO3 14 L VBG Total CO2 12 L VBG O2 Saturation 98 VBG Base Excess -13 L Sodium 139 138 Potassium 3.5 3.2 L Chloride 107 108 H Carbon Dioxide 15.0 L 14.7 L Anion Gap 17.0 H 15.3 H BUN 11 11 Creatinine 0.92 0.89 Estimated GFR/1.73 m2 >= 60.00 >= 60.00 Glucose 103 128 H Calcium 9.6 9.2 Magnesium 2.3 07/03/20 07/03/20 07/03/20 14:13 19:00 19:00 WBC RBC Hgb Hct MCV MCH MCHC RDW Plt Count MPV Immature Gran % Neutrophils % Lymphocytes % Monocytes % Eosinophils % Basophils % Nucleated RBC % Absolute Neutrophils Absolute Lymphocytes Absolute Monocytes Absolute Eosinophils Absolute Basophils VBG pH 7.35 7.34 VBG pCO2 26 L 31 L VBG pO2 142 72 VBG HCO3 14 L 17 L VBG Total CO2 15 L VBG O2 Saturation > 99 96 VBG Base Excess -11 L -9 L Sodium 138 Potassium 3.2 L Chloride 109 H Carbon Dioxide 18.1 L Anion Gap 10.9 BUN 10 Creatinine 0.92 Estimated GFR/1.73 m2 >= 60.00 Glucose 109 H Calcium 9.2 Magnesium 07/03/20 07/03/20 07/04/20 22:00 22:00 01:50 WBC RBC Hgb Hct MCV MCH MCHC RDW Plt Count MPV Immature Gran % Neutrophils % Lymphocytes % Monocytes % Eosinophils % Basophils % Nucleated RBC % Absolute Neutrophils Absolute Lymphocytes Absolute Monocytes Absolute Eosinophils Absolute Basophils VBG pH 7.34 VBG pCO2 29 L VBG pO2 97 VBG HCO3 16 L VBG Total CO2 14 L VBG O2 Saturation 98 VBG Base Excess -10 L Sodium 137 139 Potassium 3.8 3.4 L Chloride 109 H 109 H Carbon Dioxide 16.8 L 21.1 Anion Gap 11.2 H 8.9 BUN 10 9 Creatinine 0.83 0.91 Estimated GFR/1.73 m2 >= 60.00 >= 60.00 Glucose 142 H 121 H Calcium 9.0 8.9 Magnesium 07/04/20 07/04/20 07/04/20 06:25 06:25 06:25 WBC 6.97 D RBC 4.45 Hgb 12.5 Hct 37.7 MCV 84.7 MCH 28.1 MCHC 33.2 RDW 14.0 Plt Count 334 D MPV 11.0 Immature Gran % 1.0 Neutrophils % 73.6 Lymphocytes % 15.9 Monocytes % 7.7 Eosinophils % 1.4 Basophils % 0.4 Nucleated RBC % 0 Absolute Neutrophils 5.13 Absolute Lymphocytes 1.11 L Absolute Monocytes 0.54 Absolute Eosinophils 0.10 Absolute Basophils 0.03 VBG pH 7.33 VBG pCO2 36 L VBG pO2 80 VBG HCO3 19 L VBG Total CO2 17 L VBG O2 Saturation 96 VBG Base Excess -7 L Sodium 138 Potassium 3.8 Chloride 110 H Carbon Dioxide 18.9 L Anion Gap 9.1 BUN 8 Creatinine 0.83 Estimated GFR/1.73 m2 >= 60.00 Glucose 153 H Calcium 8.8 Magnesium 1.6 L
[2020-07-04 12:15] LABS: Anion Gap 10.3 mmol/L (3-11); BUN 7 mg/dL (7-18); CO2 17.7 mmol/L (21.0-32.0); CREATININE 0.73 mg/dL (0.55-1.02); Calcium 8.6 mg/dL (8.5-10.1); Chloride 108 mmol/L (98-107); Potassium 4.2 mmol/L (3.5-5.1); Sodium 136 mmol/L (136-145)
[2020-07-04 12:16] LABS: Glucose 305 mg/dL (74-106)
--- NOTE | 2020-07-04 12:57 | NUR.NOTE ---
Pt acting out at this time. Labs reviewed with pt and Dr. James;, pt not to be discharged at this time. When given this informations, pt started yelling, throwing her phone, crying, and stomping her feet in her room. Pt educated as to the mechanisms of dka and blood sugar as related to DKA. Very unhappy and crying at this time. Refusing to eat because this will make her blood sugar. Further education provided as to the body and blood sugar cort[place]. Still unhappy at this time, on phone and yelling again.
[2020-07-04 15:16] LABS: Anion Gap 10.6 mmol/L (3-11); BUN 8 mg/dL (7-18); CO2 20.4 mmol/L (21.0-32.0); CREATININE 0.76 mg/dL (0.55-1.02); Chloride 109 mmol/L (98-107); Glucose 139 mg/dL (74-106); Potassium 3.4 mmol/L (3.5-5.1); Sodium 140 mmol/L (136-145)
[2020-07-04] MEDS: Potassium Chloride 20 MEQ TABCR PO (17:15)
--- NOTE | 2020-07-04 17:15 | DSE_ITS ---
Date of service: 07/04/20 Time of Service: 17:15 DS: Diagnosis Discharge Diagnosis (1) DKA (diabetic ketoacidoses): Status: Resolved Asessment and Plan: DKA is now resolved with negative urine ketones and normalized anion gap. Blood sugars have remain stable this afternoon with aggressive management. Patient will need to continue to monitor blood sugars before meals and PC meals and at bedtime with continued use of her corrective scale. Patient has been advised to increase her Levemir to 22 units twice a day and increase her carbohydrate coverage to a ratio of 1:10. (2) Type 1 diabetes mellitus: Status: Chronic Asessment and Plan: Poorly controlled type 1 diabetes mellitus as exhib ited by repeated admissions with DKA and persistently elevated glycohemoglobin A1c of 12.2% as an outpatient. Patient will require aggressive monitoring and adjustment of both her corrective scale as well as her carbohydrate coverage and her basal insulin. Patient should have follow-up with her woodyard operator as well as her PCP to discuss both long-term management as well as sick day management. Patient has a follow-up next week with school vocational educator to go over her CGM. (3) Gastroparesis due to DM: Status: Suspected Asessment and Plan: It is recommended that the patient have an outpatient nuclear gastric emptying study to rule out gastroparesis. This could be a component to her symptoms of early satiety (4) Crohn's disease: Status: Chronic Discharge Plan Disposition Patient Disposition: HOME Condition: Good Discharge Details Reason For Visit: DKA Admit Date/Time: 07/02/20 15:41 Admit Provider: Kim De Oliveira Attending Provider: Kim De Oliveira [facility] Hospital Course: 19-year-old type female with type 1 diabetes mellitus presented in DKA. Glucose on admission was 519 with an anion gap of 30 and a carbon dioxide level of 5.9 and a pH of 6.99 which later dropped to as low as 6.93. She was also found to have a leukocytosis of 23,000 with an elevated hemoglobin of 16.1 g and acute kidney injury with a creatinine of 1.30. Patient was given aggressive IV fluid hydration started on insulin drip serial labs were monitored including BMP and CBC along with hourly blood sugars. She was admitted July 02, 2020 and it took until the evening of July 03, 2020 and intravenous therapy nurse hours of July 04, 2020 to close her anion gap. Even though her blood sugars responded rapidly to aggressive IV fluid hydration and IV insulin. Despite the leukocytosis she had no evidence for an infectious source and wants her DKA responded her leukocytosis resolved. On the morning of July 03, 2020 she was resumed on basal insulin Levemir 15 units twice a day and given orders for carb coverage with prandial NovoLog. Reportedly her glucometer was malfunctioning and she had a school vocational educator meet with her and give her a new glucose meter and test strips. Dr. De Oliveira the admitting hospitalist prescribed a continuous glucose meter including leyla 2. This was sent to her pharmacy and will be available on Monday afterwards she is to follow-up with the school vocational educator as an outpatient to discuss management of her blood sugars using her CGM. During the evening of July 03, 2020 her anion gap went up to 11.2 which required continuous insulin drip overnight at 2 units an hour by the morning of July 04, 2020 her anion gap had resolved to 9.1 although her carbon dioxide level remained below normal at 18.9. Blood sugar on the morning of July 04 was 153 by lab draw in 163 by fingerstick. Patient was given her usual dose of Levemir 15 units but because she was refused to eat she received no prandial glucose coverage. When the patient was told that she cannot be discharged until she began eating she finally reluctantly ate half a bagel and received carbohydrate coverage at a 1:15 ratio. However as the morning continued her blood sugars began to rise and by noontime fingerstick blood sugars were up to 276. Patient was given additional 10 units of Levemir in the morning for total of 25 units and was given additional NovoLog coverage for her elevated blood sugars. Patient became visibly upset that she was not going to be discharged home that morning and after having emotional meltdowns she was able to be convinced to stay until we get her blood sugars under control. With aggressive monitoring of her blood sugars and monitoring of her urine for ketones we eventually got her blood sugars down in the 126 to 134 mg/dL level and when her repeat urine came back negative for ketones and a repeat BMP in the afternoon showed her bicarbonate level up to 20.4 with a normal anion gap of 10.6 it was felt that she could be safely discharged home. Lab drawn glucose in the afternoon was 139. I discussed with her the need to check her sugars fairly frequently and to give herself additional insulin coverage for elevated blood sugars. Patient reports that her corrective scale as prescribed by [facility] is at a 1:40 ratio for any blood sugars above 120. I felt this is probably appropriate although I told her that she should check her sugars and if they are 250 or above she needs to monitor her sugars hourly and continue dosing herself until her sugars drop by 50 mg/dL/h and her glucose is back down below 150. I have requested that she increase her Levemir to 22 units twice a day and increase her carbohydrate coverage to a 1:10 ratio. She is to get a repeat BMP in 2 days and I put her on some supplemental potassium as her potassium remained mildly decreased at 3.4. She should make a follow-up with her primary care provider early next week and she should get a follow-up with her woodyard operator within the next 2 to 4 weeks. Home Meds and New Rx's Prescriptions: New (DME) FreeStyle Leyla 2 [place] Misc See Rx Instructions .ROUTE .MEDSUPPLY Qty: 1 RF: 0 (DME) FreeStyle Leyla 2 Sensor Kit See Rx Instructions .ROUTE .MEDSUPPLY Qty: 4 RF: 3 potassium chloride 20 mEq tablet extended release 20 meq PO DAILY Qty: 7 RF: 0 Continued insulin lispro [Humalog KwikPen Insulin] 100 unit/mL insulin pen 1 - 30 unit SC .AC (4-5 times daily) MDD 150 units Qty: 45 RF: 3 Changed Levemir FlexTouch U-100 Insuln 100 unit/mL (3 mL) insulin pen 22 unit subcut BID Qty: 15 RF: 0 No Action (DME) pen needle, diabetic [BD Ultra-Fine Gissel Pen Needle] 32 gauge x 5/32 needle 1 device miscellaneous DIRECTED Qty: 100 RF: 0 (DME) pen needle, diabetic [BD Ultra-Fine Gissel Pen Needle] 32 gauge x 5/32 needle See Rx Instructions .ROUTE .COMPLEX Qty: 100 RF: 0 Discharge Instructions Instructions: Diabetic Ketoacidosis (DC) Additional Instructions: keep your scheduled follow up next week w/ the school vocational educator to obtain your CGM and to go over instructions on its use. Monitor your blood sugars before each meal and 1 to 2 hours after meals to determine your responsiveness to your glucose dosing. If your glucose rises over 250 mg/dL start checking your glucose hourly until your glucose falls below 150 mg/dL Referrals: Hetal Leon NP [Primary Care Provider] - (call the office on Friday 07/06 for a follow up appointment in the next week) Activity:: Activity as Tolerated Equipment/Supplies:: Blood Glucose Monitor Diet:: Carb Counting Discharge Orders Other Ambulatory Orders: Basic Metabolic Panel (Routine) Timeframe: 2 Days Facility: [facility] - Location: Laboratory Outpatient Ordered By: Joe James DS: Summary Status at Discharge Functional status at discharge: independent ambulation Overall status at discharge: patient is back to baseline Mental Status: mental status grossly normal Speech and Movement: speech and movement normal Mood: congruent mood Affect: normal affect Time Spent with Patient providing and/or coordinating discharge services: Greater than 30 minutes Specific discharge activities: Completing prescriptions, reviewing her medication changes, and arranging follow-up lab work Exam Narrative Exam Narrative: female sitting up in her bed in no discomfort or distress. She is alert and oriented person place time circumstance. Lungs are clear to auscultation. Heart regular rate and rhythm. Abdomen soft nontender NABS nondistention Psych Mental Status: mental status grossly normal Speech and Movement: speech and movement normal Mood: congruent mood Affect: normal affect DS: Data Vitals/I&O Vitals and I&O: Vital Signs Temperature 36.7 C 07/04/20 16:07 Temperature Source Temporal Artery Scan 07/04/20 16:07 Pulse 63 07/04/20 16:07 Pulse 65 07/04/20 08:00 Respiratory Rate 14 07/04/20 16:07 Respiratory Effort Non-Labored 07/04/20 16:07 Respiratory Depth Normal 07/04/20 16:07 Respiratory Pattern Normal 07/04/20 16:07 Blood Pressure 138/90 07/04/20 16:07 Blood Pressure Mean 106 07/04/20 16:07 Blood Pressure Position Supine 07/04/20 16:07 Pulse Oximetry 97 07/04/20 16:07 Oxygen Delivery Method Room Air 07/04/20 07:58 Oxygen Flow Rate 0 07/04/20 07:58 Pain Level 0 07/04/20 16:07 Intake & Output 07/03/20 07/04/20 07/04/20 23:59 11:59 23:59 Intake Total 1350.517 / 3666.667 2577.242 / 2577.242 Output Total 750 / 1850 Balance 600.517 / 4856.657 6486.242 / 2577.242 Intake: IV 1230.517 / 3296.667 2427.242 / 2427.242 Oral 120 / 370 150 / 150 Output: Urine 750 / 1400 Other: Urine Color Dark Quyen Dark Quyen Urine Appearance Clear Clear Urine Odor None None Comment Up to BSC to void Voiding Methods Bedside Commode Bedside Commode Data Completed and Pending Labs on day of discharge: Labs from last 24 hours 07/04/20 07/04/20 07/04/20 16:00 15:00 13:32 WBC RBC Hgb Hct MCV MCH MCHC RDW Plt Count MPV Immature Gran % Neutrophils % Lymphocytes % Monocytes % Eosinophils % Basophils % Nucleated RBC % Absolute Neutrophils Absolute Lymphocytes Absolute Monocytes Absolute Eosinophils Absolute Basophils VBG pH VBG pCO2 VBG pO2 VBG HCO3 VBG Total CO2 VBG O2 Saturation VBG Base Excess Sodium Cancelled 140 Potassium Cancelled 3.4 L Chloride Cancelled 109 H Carbon Dioxide Cancelled 20.4 L Anion Gap Cancelled 10.6 BUN Cancelled 8 Creatinine Cancelled 0.76 Estimated GFR/1.73 m2 Cancelled >= 60.00 Glucose Cancelled 139 H D Calcium Cancelled 9.0 Magnesium Urine Color Pending Urine Clarity Pending Urine pH Pending Ur Specific Turpin Pending Urine Protein Pending Urine Ketones Pending Urine Blood Pending Urine Nitrite Pending Urine Bilirubin Pending Urine Urobilinogen Pending Ur Leukocyte Esterase Pending Urine Glucose Pending 07/04/20 07/04/20 07/04/20 12:00 06:25 06:25 WBC 6.97 D RBC 4.45 Hgb 12.5 Hct 37.7 MCV 84.7 MCH 28.1 MCHC 33.2 RDW 14.0 Plt Count 334 D MPV 11.0 Immature Gran % 1.0 Neutrophils % 73.6 Lymphocytes % 15.9 Monocytes % 7.7 Eosinophils % 1.4 Basophils % 0.4 Nucleated RBC % 0 Absolute Neutrophils 5.13 Absolute Lymphocytes 1.11 L Absolute Monocytes 0.54 Absolute Eosinophils 0.10 Absolute Basophils 0.03 VBG pH 7.33 VBG pCO2 36 L VBG pO2 80 VBG HCO3 19 L VBG Total CO2 17 L VBG O2 Saturation 96 VBG Base Excess -7 L Sodium 136 Potassium 4.2 Chloride 108 H Carbon Dioxide 17.7 L Anion Gap 10.3 BUN 7 Creatinine 0.73 Estimated GFR/1.73 m2 >= 60.00 Glucose 305 H D Calcium 8.6 Magnesium Urine Color Urine Clarity Urine pH Ur Specific Turpin Urine Protein Urine Ketones Urine Blood Urine Nitrite Urine Bilirubin Urine Urobilinogen Ur Leukocyte Esterase Urine Glucose 07/04/20 07/04/20 07/03/20 06:25 01:50 22:00 WBC RBC Hgb Hct MCV MCH MCHC RDW Plt Count MPV Immature Gran % Neutrophils % Lymphocytes % Monocytes % Eosinophils % Basophils % Nucleated RBC % Absolute Neutrophils Absolute Lymphocytes Absolute Monocytes Absolute Eosinophils Absolute Basophils VBG pH 7.34 VBG pCO2 29 L VBG pO2 97 VBG HCO3 16 L VBG Total CO2 14 L VBG O2 Saturation 98 VBG Base Excess -10 L Sodium 138 139 Potassium 3.8 3.4 L Chloride 110 H 109 H Carbon Dioxide 18.9 L 21.1 Anion Gap 9.1 8.9 BUN 8 9 Creatinine 0.83 0.91 Estimated GFR/1.73 m2 >= 60.00 >= 60.00 Glucose 153 H 121 H Calcium 8.8 8.9 Magnesium 1.6 L Urine Color Urine Clarity Urine pH Ur Specific Turpin Urine Protein Urine Ketones Urine Blood Urine Nitrite Urine Bilirubin Urine Urobilinogen Ur Leukocyte Esterase Urine Glucose 07/03/20 07/03/20 07/03/20 22:00 19:00 19:00 WBC RBC Hgb Hct MCV MCH MCHC RDW Plt Count MPV Immature Gran % Neutrophils % Lymphocytes % Monocytes % Eosinophils % Basophils % Nucleated RBC % Absolute Neutrophils Absolute Lymphocytes Absolute Monocytes Absolute Eosinophils Absolute Basophils VBG pH 7.34 VBG pCO2 31 L VBG pO2 72 VBG HCO3 17 L VBG Total CO2 15 L VBG O2 Saturation 96 VBG Base Excess -9 L Sodium 137 138 Potassium 3.8 3.2 L Chloride 109 H 109 H Carbon Dioxide 16.8 L 18.1 L Anion Gap 11.2 H 10.9 BUN 10 10 Creatinine 0.83 0.92 Estimated GFR/1.73 m2 >= 60.00 >= 60.00 Glucose 142 H 109 H Calcium 9.0 9.2 Magnesium Urine Color Urine Clarity Urine pH Ur Specific Turpin Urine Protein Urine Ketones Urine Blood Urine Nitrite Urine Bilirubin Urine Urobilinogen Ur Leukocyte Esterase Urine Glucose PFSH Medical History (Updated 07/04/20 @ 17:42 by Joe James) Crohn's disease Elevated blood pressure affecting in third trimester, antepartum Type 1 diabetes mellitus [facility] Endo; h/o hospitalizations for DKA Surgical History Colonoscopy - MAC (03/06/17) Family History (Updated 07/02/20 @ 17:41 by Kim De Oliveira MD) Maternal Grandfather Breast cancer Paternal Cousin Diabetes Maternal Grandfather Heart disease Mother Hypertension Social History (Updated 05/25/20 @ 15:29 by Hetal Leon NP) Smoking/Tobacco Use Status: Never Smoking risk assessment performed?: Yes Alcohol Intake: never Drug use: Occasionally Substance use type: marijuana Adopted: No Caregiver/Support person: Yes (2 month old ricardo) Household members: significant other, children and other Details: Fianc?: Glenn; 2-month-old (as of May 2020) Housing: house Number of Children: 1 Communication Needs: None Education Level: high school current occupation: [employer] Pets and animals: Yes Pets and animals: dog(s) Sexually active: Yes Do you think of yourself as: straight/heterosexual Current gender identity: female What is your relationship status?: living with partner Panel score (0-1 are the most socially isolated patients): 1 What type of physical activity do you participate in: walking Seatbelt use: always Helmet use: Yes Drive intox or ride w/intox minibus driver: Yes Working smoke detector in home: Yes Fire extinguisher in home: No Carbon monox detector in home: Yes Firearms in home: No Do you feel safe at home: Yes Do you feel safe in your relationship?: Yes Victim of physical abuse: No Victim of emotional abuse: No Victim of sexual abuse: No Female Reproductive History Menstrual Age of Menarche: 10 Duration of menses: 3-5 days control method: pills History History 1 Para 0 Hx # Term Pregnancies 0 Multiple births 0 Hx # Pregnancies 0 Ectopic pregnancies 0 AB induced 0 Hx Number of Living Children 0 AB spontaneous 0
== END 2020-07-04 18:00 | disposition home or self-care (01) | DRG 638 ==
LOC: ER 20:07 → ICU 20:19
PROVIDERS: Internal Medicine; Admitting Provider Internal Medicine; Emergency Provider Physician Assistant; PCP Nurse Practitioner Family; Visit Provider Internal Medicine
DX: E10.10 Type 1 diabetes mellitus with ketoacidosis without coma (principal); K50.90 Crohn's disease, unspecified, without complications; E10.43 Type 1 diabetes mellitus with diabetic autonomic (poly)neuropathy; K31.84 Gastroparesis; E10.65 Type 1 diabetes mellitus with hyperglycemia
CPT/HCPCS: 36415; 36416; 80048; 80053; 81025; 82805; 82962; 96361; 96376; 99232; 99239; 99285; 99291; U0003; 81003; 81015; 83605; 83735; 84100; 84484; 85025; 85610; 85730; J2405; J3480; J3490

== ENCOUNTER 2020-07-07 04:33 | Outpatient (CLI) | payer BC, SELFPAY ==
--- NOTE | 2020-07-07 13:00 | NS.NUTBLAN_ITS ---
Monica is referred for Medical Nutrition Therapy for IDDM and education on how to use the Libre2 Continuous Glucose Monitoring Device. Monica has a 4 month old baby, and was dx at age 14 with IDDM. She is not breast feeding. She reports well controlled DM through , however, has had 2 hospitalization due to DKA since giving . ER blood sugars > 500 both events. She cannot attribute reason for hyperglycemia other than missing insulin doses due to sleeping during day as infant had been up at night. Most recent A1c 12% (05/25/20) indicating uncontrolled IDDM. Home meds include: bolus sliding scale at meals if BS > 150 mg/d (1:10 insulin:carb correction), 22 u levemir in AM and PM. She reports having blood sugar of 42 mg this morning around 8 am, drank a glass of OJ, and rechecked at 93 mg. She also reports frequent highs > 200 mg/dl in last week. Hypoglycemic event of concern, may be getting too much levemir- based on weight calculations, with current weight needs 24 units long acting daily- currently getting 44 units. Monica attached her own CGM and programed it to alert her when BS are below 70 mg/dl or above 180 mg/dl. Educated in difference of interstitial blood sugar reading versus finger stick method. Instructed Monica to do finger stick to verify BS when CGM reads high or low. Instructed her also not to take Vitamin C or large amounts of aspirin as intake can skew CGM data points. Monica signed up for her [employer] account and has rachell on her phone for blood sugars reports daily, weekly, monthly to be printed out for her providers. Monica will need a perscription from her PCP to receive 2 CGM sensors per month as each sensor last up to 14 days. Follow up meeting scheduled for 07/24/20 at 9:30 am. 45 minutes face to face
== END 2020-07-07 04:53 ==
PROVIDERS: PCP Nurse Practitioner Family; Visit Provider Dietitian, Registered
DX: E11.9 Type 2 diabetes mellitus without complications (principal); Z79.4 Long term (current) use of insulin; Z71.3 Dietary counseling and surveillance
CPT/HCPCS: 97802

== ENCOUNTER 2020-09-15 08:07 | Inpatient (IN) | payer BC, SELFPAY ==
[2020-09-15] VITALS (124 sets, daily range): BP systolic 101–161; BP diastolic 47–103; PULSE 73–210; RESP 15–46; TEMP 36.5–37.4; O2SAT 95–100
--- NOTE | 2020-09-15 07:45 | RT.EKG_ITS ---
APPROVED REPORT Exam: Resting ECG Patient Location: E HR:209 bpm ECG Measurements Heart Rate 209 AXIS WV 85 P 83 QRSd 103 QRS 69 QT 272 T -83 QTc 507 Conclusion Supraventricular tachycardia...V-rate>(220-age), QRSd<120 Repolarization abnormality, prob rate related...ST dep, T neg, tachycardia
[2020-09-15] MEDS: Normal Saline 1,000 ML 1000 ML IV ×3 (08:15→09:02)
--- NOTE | 2020-09-15 08:15 | DI.RAD_ITS ---
EXAM: XR PORTABLE CHEST AP CLINICAL HISTORY: dyspnea TECHNIQUE: 2D digital imaging was performed. COMPARISON: CR,XR XR CHEST 2V PA LATERAL from 05/17/2020 FINDINGS: MEDIASTINUM: Normal. HEART: Normal. PULMONARY VASCULATURE: Normal. LUNGS: Clear. PLEURAL SPACE: No pleural effusion or pneumothorax. BONE:There is a stable right convex thoracic scoliosis. OTHER FINDINGS:Overlying monitoring equipment obscures the mid mediastinum. IMPRESSION: No acute pulmonary findings. DATA REPOSITORY: RADIATION DOSE DELIVERED:
--- NOTE | 2020-09-15 08:15 | RT.EKG_ITS ---
APPROVED REPORT Exam: Resting ECG Patient Location: E HR:149 bpm ECG Measurements Heart Rate 149 AXIS NV 100 P 77 QRSd 106 QRS 52 QT 318 T -12 QTc 503 Conclusion Sinus tachycardia...rate> 99 Probable left atrial enlargement...P >50mS, <-0.10mV V1 Prolonged QT interval...QTc >495mS
[2020-09-15] MEDS: Adenosine 6 MG/2 ML VIAL IVP (08:16)
--- NOTE | 2020-09-15 08:16 | ED.GENADUL_ITS ---
Discharge Plan Disposition Patient Disposition: [facility] INPATIENT Condition: Serious Discharge Details Clinical Impression: DKA (diabetic ketoacidoses) Primary Care Provider: Unknown,Unknown ED Provider: Jun Adams Home Meds and New Rx's Prescriptions: No Action (DME) FreeStyle Leyla 14 Day Sensor Kit See Rx Instructions .ROUTE .MEDSUPPLY Qty: 6 RF: 3 (DME) pen needle, diabetic [BD Ultra-Fine Gissel Pen Needle] 32 gauge x 5/32 needle 1 device miscellaneous DIRECTED Qty: 100 RF: 0 (DME) pen needle, diabetic [BD Ultra-Fine Gissel Pen Needle] 32 gauge x 5/32 needle See Rx Instructions .ROUTE .COMPLEX Qty: 100 RF: 0 (DME) FreeStyle Leyla 2 [place] Misc See Rx Instructions .ROUTE .MEDSUPPLY Qty: 1 RF: 0 insulin lispro [Humalog KwikPen Insulin] 100 unit/mL insulin pen 1 - 30 unit SC .AC (4-5 times daily) MDD 150 units Qty: 45 RF: 3 Levemir FlexTouch U-100 Insuln 100 unit/mL (3 mL) insulin pen 22 unit subcut BID Qty: 15 RF: 0 Medical Decision Making 20 yo female with hx of IDDM with prior episodes of dka due to poor compliance per documentation and also gastroparesis comes in with ems after she fell and was unable to get off the floor at 3am after she got up to use the restroom at her house and felt weak. She denies missing doses of her insulin but her mother finally called ems around 7am. Family checked her sugar and it was over 500 and so they gave her 50Units of her humalog. EMS arrived and her blood glucose was still in the 400's and she was noted to be in svt. EMS established IV access and gave her normal saline and en route attempted synchronized cardioversion three times total (1 at 100J and 2 at 150J) but werer unsuccessful in converting. She arrives tachypneic and is ill appearing. She is able to answer questions and is caox4. She denies headaches, denies chest pain prior to cardioversion but has some mild anterior pain now. Denies fevers or cough. She has no focal motor or sensation deficits but is weak throughout. I gave her 6mg of adenosine after she was indeed in svt on arrival and her heart rate went from 200 to 140 and she appears to be in sinus. I suspect again poor compliance leading to dka, will obtain labs, give more fluids and monitor. pH 6.8 so pharmacy requested to make bicarbonate infusion. She continues to be tachypneic but given this pH will try to avoid intubation given concern she would arrest due to the acidemia pt appears less tachypneic and speaking in 3-4 word sentences now. Labs thus far show lactate of over 7 and wbc over 35 but has not had any infectious symptoms and when she had dka in May had similar elevations without infectious etiology so doubt sepsis as cause of her dka at this time, will order blood cultures and continue to monitor xray negative on my read, she remains HD stable with HR in the 140's and stable BP, respiratory rate in the 20's now initially on my initial exam was in the 40's. She has a glucose over 600 potassium over 5.3 so will initiate insulin inf usion. 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 thomas who accepts for admission. Updated patient and she agrees with plan, is appearing better and she states she does feel better pt's urine drug screen positive for thc and states uses nightly, positive for benzo's but was given midazolam for cardioversion by ems patient remains hd stable, now on half normal saline and most recent blood glucose is 160's, stopped insulin infusion and will stop half normal and switch to d5 with half normal saline. Awaiting bed in the icu Differential Diagnosis Differential Diagnosis: dka, svt, sepsis Medical Records Medical records reviewed: Yes I reviewed the patient's medical records. Imaging Data Radiologic Study: Attestation: I personally reviewed and interpreted this imaging study as follows: Imaging: X-Ray My impression: no acute findings Lab Data Lab results reviewed: Yes I reviewed the patient's lab results. ECG Data Attestation: I personally reviewed and interpreted this ECG (s) as follows: Prior ECG tracings: not available for review Interpretation: 1st ekg shows svt with HR of 209, pr 85, qtc 507 2nd ekg shows sinus tachycardia, rate of 149, pr 100, qtc 503 HPI General Mode of arrival: EMS . Date/Time Provider Initiated Documentation: 09/15/20 08:15 . Limitations to Documentation: no limitations . Information obtained by: patient and EMS . History of Present Illness 20 year old F presents to the emergency department with the chief complaint of elevated glucose, described as moderate, Patient started experiencing this hour(s) (5) and it has been constant. No relieving factors improve symptom(s), No exacerbating factors reported . Patient did receive the following treatments prior to arrival, other (3 synchronized cardioversions with ems (1 at 100J, 2 at 150J)) Related Data Home Medications Medication Instructions Recorded Confirmed pen needle, diabetic [BD #100 ea 05/20/20 05/25/20 Ultra-Fine Gissel Pen Needle] pen needle, diabetic [BD #100 ea 05/20/20 05/25/20 Ultra-Fine Gissel Pen Needle] flash glucose scanning reader #1 ea 07/03/20 [FreeStyle Leyla 2 [place]] Levemir FlexTouch U-100 Insuln 22 unit SUBCUT BID #15 ml 07/04/20 09/15/20 insulin lispro [Humalog KwikPen 1 - 30 unit SC .AC (4-5 times 07/04/20 09/15/20 Insulin] daily) #45 syrg MDD 150 units flash glucose sensor #6 ea 07/08/20 Previous Rx's Medication Instructions Recorded pen needle, diabetic [BD #100 ea 05/20/20 Ultra-Fine Gissel Pen Needle] pen needle, diabetic [BD #100 ea 05/20/20 Ultra-Fine Gissel Pen Needle] flash glucose scanning reader #1 ea 07/03/20 [FreeStyle Leyla 2 [place]] Levemir FlexTouch U-100 Insuln 22 unit SUBCUT BID #15 ml 07/04/20 insulin lispro [Humalog KwikPen 1 - 30 unit SC .AC (4-5 times 07/04/20 Insulin] daily) #45 syrg MDD 150 units flash glucose sensor #6 ea 07/08/20 Allergies Allergy/AdvReac Type Severity Reaction Status Date / Time No Known Allergies Allergy Verified 07/02/20 14:36 General CHACHA: 2 Review of Systems All systems reviewed & are unremarkable except as noted in HPI and below Constitutional Constitutional: Denies chills and Denies fever(s) Respiratory Respiratory: Denies cough Gastrointestinal Gastrointestinal: Denies abdominal pain, Denies nausea and Denies vomiting Musculoskeletal Musculoskeletal: Denies joint swelling PFSH Medical History (Updated 09/15/20 @ 09:39 by Jun Adams MD) Crohn's disease Elevated blood pressure affecting in third trimester, antepartum Type 1 diabetes mellitus [facility] Endo; h/o hospitalizations for DKA Surgical History Colonoscopy - MAC (03/06/17) Family History (Updated 07/02/20 @ 17:41 by Kim De Oliveira MD) Maternal Grandfather Breast cancer Paternal Cousin Diabetes Maternal Grandfather Heart disease Mother Hypertension Social History (Updated 05/25/20 @ 15:29 by Hetal Leon NP) Smoking/Tobacco Use Status: Never Smoking risk assessment performed?: Yes Alcohol Intake: never Drug use: Daily Substance use type: marijuana Adopted: No Caregiver/Support person: Yes (2 month old ricardo) Household members: significant other, children and other Details: Fianc?: Glenn; 2-month-old (as of May 2020) Housing: house Number of Children: 1 Communication Needs: None Education Level: high school current occupation: [employer] Pets and animals: Yes Pets and animals: dog(s) Sexually active: Yes Do you think of yourself as: straight/heterosexual Current gender identity: female What is your relationship status?: living with partner Panel score (0-1 are the most socially isolated patients): 1 What type of physical activity do you participate in: walking Seatbelt use: always Helmet use: Yes 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 Working smoke detector in home: Yes Fire extinguisher in home: No Carbon monox detector in home: Yes Firearms in home: No Do you feel safe at home: Yes Do you feel safe in your relationship?: Yes Victim of physical abuse: No Victim of emotional abuse: No Victim of sexual abuse: No Female Reproductive History Menstrual Age of Menarche: 10 Duration of menses: 3-5 days control method: pills History History 1 Para 0 Hx # Term Pregnancies 0 Multiple births 0 Hx # Pregnancies 0 Ectopic pregnancies 0 AB induced 0 Hx Number of Living Children 0 AB spontaneous 0 Exam Const General: ill appearing Orientation: alert HENMT Head: normal to inspection Ears: external ears normal General nose exam: external nose normal Mouth: moist mucous membranes Eyes General: appearance normal, both eyes and all related structures Neck Neck: normal visual inspection Resp Effort & Inspection: tachypneic Cardio Rate: tachycardic Skin General skin exam: no rashes or lesions noted Neuro General: patient alert and patient oriented x3 Extrem General: normal to inspection Psych Mental Status: mental status grossly normal Critical Care Time Critical Care Time Critical Care Time: Yes Total Critical Care Time: 120 (minutes) Attestation: time spent on frequent assessments, hemodynamic monitoring, IV adenosine for patient with svt and insulin drip in patient with dka with potential to deteriorate at any time
[2020-09-15 08:23] LABS: HCO3 (Venous) 4 mmol/L (23-28); HCT 50.5 % (36.0-46.0); HGB 15.4 g/dL (11.2-15.7); MCH 28.8 pg (27.0-33.0); MCHC 30.5 % (32.0-36.0); MCV 94.6 fL (80-95); MPV 11.7 fL (8.0-11.0); Nucleated RBC 0 %; O2 Sat (Venous) 76 %; RBC 5.34 10^6/uL (3.93-5.22); RDW 13.2 % (11.7-14.6); RDW-SD 46.1 fL; TCO2 (Venous) 4 mmol/L (24-29); pCO2 (Venous) 26 mmHg (41-51); pO2 (Venous) 59 mmHg
[2020-09-15 08:27] LABS: Lactate 7.3 mmol/L (0.6-1.4)
[2020-09-15] MEDS: Ondansetron 4 MG/2 ML VIAL IVP (08:28)
[2020-09-15 08:38] LABS: Lipase 80 U/L (73-393); Magnesium 2.4 mg/dL (1.8-2.4)
[2020-09-15 08:43] LABS: Platelet Count 616 10^3/uL (130-400); WBC 35.02 10^3/uL (4.4-10.8)
[2020-09-15 08:44] LABS: ALT 16 U/L (14-59); AST 16 U/L (15-37); Absolute Neutrophil Count 30.82 10^3/uL (1.2-6.7); Alkaline Phosphatase 149 U/L (46-116); Anion Gap 29.8 mmol/L (3-11); BUN 15 mg/dL (7-18); Bands % 2; Bilirubin, Total 0.3 mg/dL (0.2-1.0); CO2 6.2 mmol/L (21.0-32.0); CREATININE 1.5 mg/dL (0.55-1.02); Chloride 105 mmol/L (98-107); Creatine Kinase 61 U/L (26-192); Estimated GFR 43.83 (mL/min/1.73m2); Potassium 5.1 mmol/L (3.5-5.1); Sodium 141 mmol/L (136-145)
[2020-09-15 08:45] LABS: Absolute Lymphocyte Count 1.05 10^3/uL (1.2-3.4)
[2020-09-15 08:46] LABS: Troponin I < 0.05 ng/mL (<0.06)
[2020-09-15 08:47] LABS: Glucose 623 mg/dL (74-106)
[2020-09-15 08:48] LABS: Diff Comment Manual Differential; ETHANOL BLOOD < 3.0 mg/dL (<3); RBC Morphology Normal
[2020-09-15 08:49] LABS: HCG Qual (Serum) Negative; Metamyelocytes % 3; Myelocytes % 2
[2020-09-15 09:00] LABS: INR 1.1 (0.9-1.1); Prothrombin Time 11.2 sec (9.3-11.0)
--- NOTE | 2020-09-15 09:00 | RESPIRATORY ---
RT called to ER concerning a DKA patient coming by EMS. Patient was kussmaul breathing upon RT arrival to room, SpO2 99% HR 150 RR 40. RT consulted concerning an ABG being done, Rt was told a VBG had been performed. RT placed patient on CO2 NC at 4L was then instructed to increase flow to 10LPM. Vitals CO2 9-10 HR 155 SpO2 100% on 10L CO2 NC RR 35. Patients RR decreased slightly, was placed on insulin and no further RT interventions needed. RT monitored then consult Dr if RT service needed anymore. Dr was ok with Rt leaving and would call if needed again.
[2020-09-15 09:01] LABS: Acetaminophen < 2 ug/mL (10-30)
[2020-09-15] MEDS: INSULIN REGULAR IN 0.9 % NACL 100 UNIT/100 ML BAG 7 UNIT IV (09:04)
[2020-09-15 09:16] LABS: Bilirubin Small (Negative); Blood Moderate (Negative); Clarity Sl Cloudy (Clear); Glucose 500 mg/dL (Negative); Ketones >=160 mg/dL (Negative); Leukocyte Esterase Negative (Negative); Nitrite Negative (Negative); Specific Gravity >= 1.030 (1.005-1.025); Urobilinogen 0.2 EU/dL (Up TO 0.2); pH 5.5 (5-8)
[2020-09-15 09:28] LABS: Bacteria Moderate HPF (Negative); C & S Indicated? Yes; Crystals Few Amorphous HPF (Negative); Epithelial Cells Rare HPF (Negative); Mucus Negative (Negative); RBC 20-50 HPF (0-2); WBC 0-2 HPF (0-5)
[2020-09-15] MEDS: WATER FOR INJECTION STERILE IV ×2 (09:30→10:29)
[2020-09-15] MEDS: SODIUM BICARBONATE IV ×2 (09:30→10:29)
[2020-09-15 09:37] LABS: Source Nasopharynx
[2020-09-15 09:40] LABS: *AMPHETAMINES SCREEN URINE Negative (Negative); *BARBITURATES SCREEN URINE Negative (Negative); *BENZODIAZEPINES SCREEN URINE POSITIVE (Negative); Cannabinoids THC POSITIVE (Negative); Cocaine Screen,Urine Negative (Negative); METHADONE URINE SCREEN Negative (Negative); OPIATES URINE SCREEN Negative (Negative)
[2020-09-15 09:41] LABS: Tricyclic Antidepressants Negative (Negative)
[2020-09-15] MEDS: SODIUM CHLORIDE 0.45% 1,000 ML 250 ML IV (10:11)
[2020-09-15 10:30] LABS: HCO3 (Venous) 6 mmol/L (23-28); O2 Sat (Venous) 79 %; TCO2 (Venous) 6 mmol/L (24-29); pO2 (Venous) 44 mmHg
[2020-09-15 10:37] LABS: pCO2 (Venous) 18 mmHg (41-51)
[2020-09-15 10:44] LABS: COVID-19 PCR Negative (Negative); Influenza A PCR Negative (Negative); Influenza B PCR Negative (Negative); RSV PCR Negative (Negative)
[2020-09-15 10:49] LABS: ALT 14 U/L (14-59); AST 13 U/L (15-37); Albumin 3.2 g/dL (3.4-5.0); Alkaline Phosphatase 114 U/L (46-116); Anion Gap 22.6 mmol/L (3-11); BUN 11 mg/dL (7-18); Bilirubin, Total 0.4 mg/dL (0.2-1.0); CO2 8.4 mmol/L (21.0-32.0); CREATININE 0.9 mg/dL (0.55-1.02); Calcium 7.5 mg/dL (8.5-10.1); Chloride 112 mmol/L (98-107); Glucose 300 mg/dL (74-106); Potassium 4.5 mmol/L (3.5-5.1); Sodium 143 mmol/L (136-145); Total Protein 7.1 g/dL (6.4-8.2)
[2020-09-15 10:53] LABS: Troponin I < 0.05 ng/mL (<0.06)
[2020-09-15] MEDS: Potassium Chloride 20 MEQ TABCR 40 MEQ PO (11:01)
[2020-09-15] MEDS: POTASSIUM CHLORIDE 20 MEQ/100 ML BAG 50 MEQ IVPB (11:02)
[2020-09-15] MEDS: DEXTROSE 5%-0.45% SALINE 1,000 ML 250 ML IV (12:19)
[2020-09-15] MEDS: Ondansetron 4 MG/2 ML VIAL (13:28)
[2020-09-15 14:52] LABS: Anion Gap 16.6 mmol/L (3-11); BUN 9 mg/dL (7-18); CO2 13.4 mmol/L (21.0-32.0); CREATININE 0.9 mg/dL (0.55-1.02); Calcium 8.6 mg/dL (8.5-10.1); Chloride 108 mmol/L (98-107); Glucose 230 mg/dL (74-106); Potassium 4.1 mmol/L (3.5-5.1); Sodium 138 mmol/L (136-145)
[2020-09-15] MEDS: DEXTROSE 5%-0.45% SALINE 1,000 ML 125 ML IV (16:28)
--- NOTE | 2020-09-15 16:34 | W.PM.HP.N ---
Date of service: 09/15/20 Time of Service: 14:41 Assessment and Plan Assessment and plan (1) DKA (diabetic ketoacidoses): Status: Acute Assessment and plan: Has had recurrences. Likely d/t poor compliance. No infectious etiology noted. Cont insulin drip. Anion GAP has improved. Repeating BMP at 1830. (2) Crohn's disease: Status: Chronic Assessment and plan: No signs/sxs of flare. Not on prednisone or disease modifying meds. History of Present Illness History of Present Illness Chief Complaint: Elevated glucose and weakness. Narrative: This is a 20 yo female with a PMH of DM1, DKA, gastroparesis. She presented to the ED via EMS after falling to the floor at 3 AM. She was unable to get up off the floor d/t weakness. She denied missing any doses of insulin. Her glucose before presentation was over 500. Given 50 units of humalog. EMS found her glucose to be in the 400's. IV NS initiated. She was noted, per EMS, to be in SVT and synchronized cardioversion x 3 given (1 at 100J and 2 at 150J). Upon arrival to the ED her HR was 200. Six mg adenosine given and her HR decreased to 140. EKG showed sinus tach at rate of 149. She had no complaint of CP. No F/C, cough/sputum. No N/V/diarrhea. Her pH was 6.8. Bicarb infused. Her tachypnea improved. WBC count was 35. Bands of 2%. K of 4.1. Anion Gap of 22.6. Creatinine 0.9. UA w/o evidence of infection. CXR w/o acute findings. Urine drug screen + for THC; uses nightly. Insulin drip initiated. Review of Systems All systems reviewed & are unremarkable except as noted in HPI and below PFSH Medical History Crohn's disease Elevated blood pressure affecting in third trimester, antepartum Type 1 diabetes mellitus [facility] Endo; h/o hospitalizations for DKA Surgical History Colonoscopy - MAC (03/06/17) Family History Maternal Grandfather Breast cancer Paternal Cousin Diabetes Maternal Grandfather Heart disease Mother Hypertension Social History Smoking/Tobacco Use Status: Never Smoking risk assessment performed?: Yes Alcohol Intake: never Drug use: Daily Substance use type: marijuana Adopted: No Caregiver/Support person: Yes (2 month old ricardo) Household members: significant other, children and other Details: Fianc?: Glenn; 2-month-old (as of May 2020) Housing: house Number of Children: 1 Communication Needs: None Education Level: high school current occupation: [employer] Pets and animals: Yes Pets and animals: dog(s) Sexually active: Yes Do you think of yourself as: straight/heterosexual Current gender identity: female What is your relationship status?: living with partner Panel score (0-1 are the most socially isolated patients): 1 What type of physical activity do you participate in: walking Seatbelt use: always Helmet use: Yes Drive 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 Working smoke detector in home: Yes Fire extinguisher in home: No Carbon monox detector in home: Yes Firearms in home: No Do you feel safe at home: Yes Do you feel safe in your relationship?: Yes Victim of physical abuse: No Victim of emotional abuse: No Victim of sexual abuse: No Female Reproductive History Menstrual Age of Menarche: 10 Duration of menses: 3-5 days control method: pills History History 1 Para 0 Hx # Term Pregnancies 0 Multiple births 0 Hx # Pregnancies 0 Ectopic pregnancies 0 AB induced 0 Hx Number of Living Children 0 AB spontaneous 0 Meds Home Medications and Allergies Home Medications Medication Instructions Recorded Confirmed Type pen needle, diabetic [BD #100 ea 05/20/20 05/25/20 Rx Ultra-Fine Gissel Pen Needle] pen needle, diabetic [BD #100 ea 05/20/20 05/25/20 Rx Ultra-Fine Gissel Pen Needle] flash glucose scanning reader #1 ea 07/03/20 Rx [FreeStyle Leyla 2 [place]] Levemir FlexTouch U-100 Insuln 22 unit SUBCUT BID #15 ml 07/04/20 09/15/20 Rx insulin lispro [Humalog KwikPen 1 - 30 unit SC .AC (4-5 times 07/04/20 09/15/20 Rx Insulin] daily) #45 syrg MDD 150 units flash glucose sensor #6 ea 07/08/20 Rx Allergies Allergy/AdvReac Type Severity Reaction Status Date / Time No Known Allergies Allergy Verified 07/02/20 14:36 Exam Const General: cooperative and no acute distress Nutritional Appearance: average body habitus Orientation: alert and oriented x3 HENMT Head: normocephalic and atraumatic Ears: hearing grossly normal bilaterally Eyes Sclera: sclerae normal Pupils: PERRL Resp Effort & Inspection: normal respiratory effort Auscultation: clear to auscultation bilaterally Cardio Rate: tachycardic (HR in the 90's.) Rhythm: regular rhythm Heart Sounds: S1 normal and S2 normal GI Palpation: soft and nontender Skin General skin exam: no rashes or lesions noted Extrem General: no pedal edema and no calf tenderness Psych Appearance: grossly normal Speech and Movement: speech and movement normal Affect: normal affect Results Labs Result diagrams: 09/15/20 08:15 09/15/20 14:35 Labs: Laboratory Results - last 24 hr 09/15/20 09/15/20 09/15/20 08:15 08:15 08:15 WBC RBC Hgb Hct MCV MCH MCHC RDW Plt Count MPV Immature Gran % Neutrophils % Band Neutrophils % Lymphocytes % Monocytes % Eosinophils % Basophils % Metamyelocytes % Myelocytes % Nucleated RBC % Absolute Neutrophils Absolute Lymphocytes Absolute Monocytes Absolute Eosinophils Absolute Basophils RBC Morphology PT INR APTT VBG pH 6.80 L* VBG pCO2 26 L VBG pO2 59 VBG HCO3 4 L VBG Total CO2 4 L VBG O2 Saturation 76 VBG Base Excess < -15 L VBG Lactate Sodium 141 Potassium 5.1 Chloride 105 Carbon Dioxide 6.2 L Anion Gap 29.8 H BUN 15 Creatinine 1.5 H Estimated GFR/1.73 m2 43.83 Glucose 623 H* Calcium 9.0 Magnesium 2.4 Total Bilirubin 0.3 AST 16 ALT 16 Alkaline Phosphatase 149 H Creatine Kinase 61 Troponin I Total Protein 9.0 H Albumin 4.0 Lipase 80 Serum HCG, Qual Urine Color Urine Clarity Urine pH Ur Specific [place] Urine Protein Urine Ketones Urine Blood Urine Nitrite Urine Bilirubin Urine Urobilinogen Ur Leukocyte Esterase Urine RBC Urine WBC Ur Epithelial Cells Urine Crystals Urine Bacteria Urine Casts Urine Mucus Ur Culture Indicated? Urine Glucose Urine Opiates Screen Urine Methadone Screen Acetaminophen < 2 Ur Barbiturates Screen Ur Tricyclics Screen Ur Amphetamines Screen U Benzodiazepines Scrn Urine Cocaine Screen Ur THC Screen Ethyl Alcohol < 3.0 COVID-19 Source SARS-CoV-2 (PCR) Influenza Type A (PCR) Influenza Type B (PCR) RSV (PCR) 09/15/20 09/15/20 09/15/20 08:15 08:15 08:15 WBC 35.02 H* RBC 5.34 H Hgb 15.4 Hct 50.5 H MCV 94.6 MCH 28.8 MCHC 30.5 L RDW 13.2 Plt Count 616 H MPV 11.7 H Immature Gran % See Differential Neutrophils % 86.0 Band Neutrophils % 2 Lymphocytes % 3.0 Monocytes % 4.0 Eosinophils % 0.0 Basophils % 0.0 Metamyelocytes % 3 Myelocytes % 2 Nucleated RBC % 0 Absolute Neutrophils 30.82 H Absolute Lymphocytes 1.05 L Absolute Monocytes 1.40 H Absolute Eosinophils 0.00 Absolute Basophils 0.00 RBC Morphology Normal PT INR APTT VBG pH VBG pCO2 VBG pO2 VBG HCO3 VBG Total CO2 VBG O2 Saturation VBG Base Excess VBG Lactate 7.3 H* Sodium Potassium Chloride Carbon Dioxide Anion Gap BUN Creatinine Estimated GFR/1.73 m2 Glucose Calcium Magnesium Total Bilirubin AST ALT Alkaline Phosphatase Creatine Kinase Troponin I Total Protein Albumin Lipase Serum HCG, Qual Negative Urine Color Urine Clarity Urine pH Ur Specific [place] Urine Protein Urine Ketones Urine Blood Urine Nitrite Urine Bilirubin Urine Urobilinogen Ur Leukocyte Esterase Urine RBC Urine WBC Ur Epithelial Cells Urine Crystals Urine Bacteria Urine Casts Urine Mucus Ur Culture Indicated? Urine Glucose Urine Opiates Screen Urine Methadone Screen Acetaminophen Ur Barbiturates Screen Ur Tricyclics Screen Ur Amphetamines Screen U Benzodiazepines Scrn Urine Cocaine Screen Ur THC Screen Ethyl Alcohol COVID-19 Source SARS-CoV-2 (PCR) Influenza Type A (PCR) Influenza Type B (PCR) RSV (PCR) 09/15/20 09/15/20 09/15/20 08:15 08:35 09:05 WBC RBC Hgb Hct MCV MCH MCHC RDW Plt Count MPV Immature Gran % Neutrophils % Band Neutrophils % Lymphocytes % Monocytes % Eosinophils % Basophils % Metamyelocytes % Myelocytes % Nucleated RBC % Absolute Neutrophils Absolute Lymphocytes Absolute Monocytes Absolute Eosinophils Absolute Basophils RBC Morphology PT 11.2 H INR 1.1 APTT 29.0 H VBG pH VBG pCO2 VBG pO2 VBG HCO3 VBG Total CO2 VBG O2 Saturation VBG Base Excess VBG Lactate Sodium Potassium Chloride Carbon Dioxide Anion Gap BUN Creatinine Estimated GFR/1.73 m2 Glucose Calcium Magnesium Total Bilirubin AST ALT Alkaline Phosphatase Creatine Kinase Troponin I < 0.05 Total Protein Albumin Lipase Serum HCG, Qual Urine Color Urine Clarity Urine pH Ur Specific [place] Urine Protein Urine Ketones Urine Blood Urine Nitrite Urine Bilirubin Urine Urobilinogen Ur Leukocyte Esterase Urine RBC Urine WBC Ur Epithelial Cells Urine Crystals Urine Bacteria Urine Casts Urine Mucus Ur Culture Indicated? Urine Glucose Urine Opiates Screen Negative Urine Methadone Screen Negative Acetaminophen Ur Barbiturates Screen Negative Ur Tricyclics Screen Negative Ur Amphetamines Screen Negative U Benzodiazepines Scrn Positive A Urine Cocaine Screen Negative Ur THC Screen Positive A Ethyl Alcohol COVID-19 Source SARS-CoV-2 (PCR) Influenza Type A (PCR) Influenza Type B (PCR) RSV (PCR) 09/15/20 09/15/20 09/15/20 09:05 09:33 10:24 WBC RBC Hgb Hct MCV MCH MCHC RDW Plt Count MPV Immature Gran % Neutrophils % Band Neutrophils % Lymphocytes % Monocytes % Eosinophils % Basophils % Metamyelocytes % Myelocytes % Nucleated RBC % Absolute Neutrophils Absolute Lymphocytes Absolute Monocytes Absolute Eosinophils Absolute Basophils RBC Morphology PT INR APTT VBG pH VBG pCO2 VBG pO2 VBG HCO3 VBG Total CO2 VBG O2 Saturation VBG Base Excess VBG Lactate Sodium Potassium Chloride Carbon Dioxide Anion Gap BUN Creatinine Estimated GFR/1.73 m2 Glucose Calcium Magnesium Total Bilirubin AST ALT Alkaline Phosphatase Creatine Kinase Troponin I < 0.05 Total Protein Albumin Lipase Serum HCG, Qual Urine Color Yellow Urine Clarity Sl cloudy Urine pH 5.5 Ur Specific [place] >= 1.030 H Urine Protein >=300 H Urine Ketones >=160 H Urine Blood Moderate H Urine Nitrite Negative Urine Bilirubin Small H Urine Urobilinogen 0.2 Ur Leukocyte Esterase Negative Urine RBC 20-50 H Urine WBC 0-2 Ur Epithelial Cells Rare Urine Crystals Few amorphous Urine Bacteria Moderate Urine Casts 10-20 coarsegranular Urine Mucus Negative Ur Culture Indicated? Yes Urine Glucose 500 H Urine Opiates Screen Urine Methadone Screen Acetaminophen Ur Barbiturates Screen Ur Tricyclics Screen Ur Amphetamines Screen U Benzodiazepines Scrn Urine Cocaine Screen Ur THC Screen Ethyl Alcohol COVID-19 Source Nasopharynx SARS-CoV-2 (PCR) Negative Influenza Type A (PCR) Negative Influenza Type B (PCR) Negative RSV (PCR) Negative 09/15/20 09/15/20 09/15/20 10:24 10:24 14:35 WBC RBC Hgb Hct MCV MCH MCHC RDW Plt Count MPV Immature Gran % Neutrophils % Band Neutrophils % Lymphocytes % Monocytes % Eosinophils % Basophils % Metamyelocytes % Myelocytes % Nucleated RBC % Absolute Neutrophils Absolute Lymphocytes Absolute Monocytes Absolute Eosinophils Absolute Basophils RBC Morphology PT INR APTT VBG pH 7.10 L* VBG pCO2 18 L* VBG pO2 44 VBG HCO3 6 L VBG Total CO2 6 L VBG O2 Saturation 79 VBG Base Excess < -15 L VBG Lactate Sodium 143 138 Potassium 4.5 4.1 Chloride 112 H 108 H Carbon Dioxide 8.4 L 13.4 L Anion Gap 22.6 H 16.6 H BUN 11 9 Creatinine 0.9 D 0.9 Estimated GFR/1.73 m2 >= 60.00 >= 60.00 Glucose 300 H D 230 H Calcium 7.5 L 8.6 Magnesium Total Bilirubin 0.4 AST 13 L ALT 14 Alkaline Phosphatase 114 Creatine Kinase Troponin I Total Protein 7.1 Albumin 3.2 L Lipase Serum HCG, Qual Urine Color Urine Clarity Urine pH Ur Specific [place] Urine Protein Urine Ketones Urine Blood Urine Nitrite Urine Bilirubin Urine Urobilinogen Ur Leukocyte Esterase Urine RBC Urine WBC Ur Epithelial Cells Urine Crystals Urine Bacteria Urine Casts Urine Mucus Ur Culture Indicated? Urine Glucose Urine Opiates Screen Urine Methadone Screen Acetaminophen Ur Barbiturates Screen Ur Tricyclics Screen Ur Amphetamines Screen U Benzodiazepines Scrn Urine Cocaine Screen Ur THC Screen Ethyl Alcohol COVID-19 Source SARS-CoV-2 (PCR) Influenza Type A (PCR) Influenza Type B (PCR) RSV (PCR) Last Vital Signs Temp 37.2 C 09/15/20 14:29 Pulse 88 09/15/20 14:29 Resp 24 09/15/20 14:29 BP 112/62 09/15/20 14:29 Pulse Ox 97 09/15/20 14:29 COVID-19 Screening Have you, or household traveled for leisure in last 14 days?: No
[2020-09-15 18:25] LABS: BE (Venous) -13 mmol/L (-2-3); HCO3 (Venous) 13 mmol/L (23-28); O2 Sat (Venous) 96 %; TCO2 (Venous) 12 mmol/L (24-29); pCO2 (Venous) 26 mmHg (41-51); pH (Venous) 7.33 (7.31-7.41); pO2 (Venous) 74 mmHg
[2020-09-15 19:01] LABS: BUN 6 mg/dL (7-18); CREATININE 0.9 mg/dL (0.55-1.02); Chloride 107 mmol/L (98-107); Glucose 274 mg/dL (74-106); Potassium 3.8 mmol/L (3.5-5.1); Sodium 139 mmol/L (136-145)
[2020-09-15] MEDS: POTASSIUM CHLORIDE 20 MEQ/100 ML BAG 25 MEQ IVPB (21:23)
[2020-09-15 23:03] LABS: Anion Gap 14.3 mmol/L (3-11); BUN 4 mg/dL (7-18); CO2 17.7 mmol/L (21.0-32.0); CREATININE 0.7 mg/dL (0.55-1.02); Calcium 8.9 mg/dL (8.5-10.1); Chloride 109 mmol/L (98-107); Glucose 118 mg/dL (74-106); Potassium 3.3 mmol/L (3.5-5.1); Sodium 141 mmol/L (136-145)
[2020-09-16] VITALS (72 sets, daily range): BP systolic 104–140; BP diastolic 57–90; PULSE 71–110; RESP 10–27; TEMP 36.4–37.3
[2020-09-16] MEDS: DEXTROSE 5%-0.45% SALINE 1,000 ML 125 ML IV ×2 (00:11→09:08)
[2020-09-16] MEDS: INSULIN REGULAR IN 0.9 % NACL 100 UNIT/100 ML BAG IV (01:01)
[2020-09-16] MEDS: POTASSIUM CHLORIDE 20 MEQ/100 ML BAG 50 MEQ IVPB ×4 (01:03→09:07)
[2020-09-16 02:59] LABS: Anion Gap 12.9 mmol/L (3-11); BUN 4 mg/dL (7-18); CO2 19.1 mmol/L (21.0-32.0); CREATININE 0.6 mg/dL (0.55-1.02); Chloride 110 mmol/L (98-107); Glucose 104 mg/dL (74-106); Potassium 3.4 mmol/L (3.5-5.1); Sodium 142 mmol/L (136-145)
[2020-09-16 06:54] LABS: Abs Immature Grans 0.11 10^3/uL (0.0-0.06); Absolute Basophil Count 0.03 10^3/uL (0.0-0.2); Absolute Eosinophil Count 0.04 10^3/uL (0.0-0.7); Absolute Lymphocyte Count 1.23 10^3/uL (1.2-3.4); Absolute Monocyte Count 1.01 10^3/uL (0.1-0.8); Absolute Neutrophil Count 11.25 10^3/uL (1.2-6.7); Basophils % 0.2; Eosinophils % 0.3; HCT 38.3 % (36.0-46.0); HGB 12.8 g/dL (11.2-15.7); Immature Grans % 0.8; MCH 29.2 pg (27.0-33.0); MCHC 33.4 % (32.0-36.0); MCV 87.2 fL (80-95); MPV 11.2 fL (8.0-11.0); Monocytes % 7.4; Neutrophils % 82.3; Nucleated RBC 0 %; Platelet Count 332 10^3/uL (130-400); RBC 4.39 10^6/uL (3.93-5.22); RDW 13.5 % (11.7-14.6); RDW-SD 42.7 fL; WBC 13.67 10^3/uL (4.4-10.8)
[2020-09-16 07:07] LABS: BUN 4 mg/dL (7-18); CREATININE 0.6 mg/dL (0.55-1.02); Calcium 8.9 mg/dL (8.5-10.1); Chloride 109 mmol/L (98-107); Glucose 111 mg/dL (74-106); Magnesium 1.5 mg/dL (1.8-2.4); Potassium 3.8 mmol/L (3.5-5.1); Sodium 141 mmol/L (136-145)
--- NOTE | 2020-09-16 10:06 | INITIAL_ITS ---
- If Service Date Differs Date of service: 09/16/20 Time of Service: 10:06 Care Management Initial Assess REASON FOR HOSPITALIZATION:: DKA PAST MEDICAL HISTORY/PAST SURGICAL HISTORY:: Medical History . Crohn's disease. Elevated blood pressure affecting in third trimester, antepartum. Type 1 diabetes mellitus. [facility] Endo; h/o hospitalizations for DKA. Surgical History . Colonoscopy - MAC (03/06/17) PREVIOUS FUNCTIONAL STATUS/SOCIAL/FAMILY SUPPORTS:: Monica resides in [place], [place] with her nenita and their infant daughter. 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 She is independent at baseline in the community. CURRENT FUNCTIONAL STATUS:: Monica ADVANCE DIRECTIVES:: none on file Has patient been provided with info about the portal/API?: Yes CODE STATUS:: Full Code INSURANCE COVERAGE / FINANCIAL ISSUES:: [employer] CURRENT HOME/COMMUNITY SERVICES/EQUIPMENT:: none PRIMARY CARE PHYSICIAN:: Hetal Leon POTENTIAL DISCHARGE NEEDS:: Follow up with PCP and assistant health educator PATIENT/FAMILY EDUCATION NEEDS:: Discharge plan, limitations, follow up plan, Ask Me Three TRANSPORTATION:: via private vehicle with tushar PLAN:: Monica will be discharged home with no new services. She will follow up with her PCP and discharge plan. Monica will likely meet with the assistant health educator after discharge. She will transport with her firande via private vehicle. CM will continue to support Monica and her family and assess for discharge planning needs.
--- NOTE | 2020-09-16 11:52 | W.PM.PROGNOT ---
Date of Service Date of service: 09/16/20 Time of Service: 09:03 Assessment and Plan Assessment and plan (1) DKA (diabetic ketoacidoses): Status: Acute Assessment and plan: Anion Gap had improved to 12.9 this AM, but then, on repeat lab later in AM, was 15. Insulin drip was continued and will stop if Gap has improved. Sliding scale insulin initiated. Her routine is Levemir 22 units SQ BID; will re-initiate. Diabetic diet. Qualifiers: Diabetes mellitus type: type 1 Diabetes mellitus complication detail: without coma Qualified Code(s): E10.10 - Type 1 diabetes mellitus with ketoacidosis without coma Subjective Subjective Patient reports: no new complaints, feels better, tolerating liquids well and afebrile; denies shortness of breath Exam Const General: cooperative and no acute distress Nutritional Appearance: average body habitus Orientation: alert and oriented x3 Resp Effort & Inspection: normal respiratory effort Auscultation: clear to auscultation bilaterally Cardio Rate: regular rate Rhythm: regular rhythm Heart Sounds: S1 normal and S2 normal GI Inspection: normal to inspection Palpation: soft and nontender Extrem General: no pedal edema and no calf tenderness Psych Appearance: grossly normal Speech and Movement: speech and movement normal Affect: normal affect Objective Last Vital Signs Temp 37.3 C 09/16/20 09:17 Pulse 89 09/16/20 09:17 Resp 17 09/16/20 10:40 BP 108/75 09/16/20 09:17 Pulse Ox 98 09/15/20 18:20 Laboratory Results - last 24 hr 09/15/20 09/15/20 09/15/20 14:35 18:05 18:05 WBC RBC Hgb Hct MCV MCH MCHC RDW Plt Count MPV Immature Gran % Neutrophils % Lymphocytes % Monocytes % Eosinophils % Basophils % Nucleated RBC % Absolute Neutrophils Absolute Lymphocytes Absolute Monocytes Absolute Eosinophils Absolute Basophils VBG pH VBG pCO2 VBG pO2 VBG HCO3 VBG Total CO2 VBG O2 Saturation VBG Base Excess Sodium 138 139 Potassium 4.1 Cancelled 3.8 Chloride 108 H 107 Carbon Dioxide 13.4 L 15.0 L Anion Gap 16.6 H 17.0 H BUN 9 6 L Creatinine 0.9 0.9 Estimated GFR/1.73 m2 >= 60.00 >= 60.00 Glucose 230 H 274 H Calcium 8.6 9.0 Magnesium 09/15/20 09/15/20 09/16/20 18:05 22:45 02:40 WBC RBC Hgb Hct MCV MCH MCHC RDW Plt Count MPV Immature Gran % Neutrophils % Lymphocytes % Monocytes % Eosinophils % Basophils % Nucleated RBC % Absolute Neutrophils Absolute Lymphocytes Absolute Monocytes Absolute Eosinophils Absolute Basophils VBG pH 7.33 VBG pCO2 26 L VBG pO2 74 VBG HCO3 13 L VBG Total CO2 12 L VBG O2 Saturation 96 VBG Base Excess -13 L Sodium 141 142 Potassium 3.3 L 3.4 L Chloride 109 H 110 H Carbon Dioxide 17.7 L 19.1 L Anion Gap 14.3 H 12.9 H BUN 4 L 4 L Creatinine 0.7 0.6 Estimated GFR/1.73 m2 >= 60.00 >= 60.00 Glucose 118 H D 104 Calcium 8.9 9.0 Magnesium 09/16/20 09/16/20 06:23 06:23 WBC 13.67 H D RBC 4.39 Hgb 12.8 D Hct 38.3 D MCV 87.2 D MCH 29.2 MCHC 33.4 RDW 13.5 Plt Count 332 D MPV 11.2 H Immature Gran % 0.8 Neutrophils % 82.3 Lymphocytes % 9.0 Monocytes % 7.4 Eosinophils % 0.3 Basophils % 0.2 Nucleated RBC % 0 Absolute Neutrophils 11.25 H Absolute Lymphocytes 1.23 Absolute Monocytes 1.01 H Absolute Eosinophils 0.04 Absolute Basophils 0.03 VBG pH VBG pCO2 VBG pO2 VBG HCO3 VBG Total CO2 VBG O2 Saturation VBG Base Excess Sodium 141 Potassium 3.8 Chloride 109 H Carbon Dioxide 17.0 L Anion Gap 15.0 H BUN 4 L Creatinine 0.6 Estimated GFR/1.73 m2 >= 60.00 Glucose 111 H Calcium 8.9 Magnesium 1.5 L
[2020-09-16] MEDS: Insulin Aspart 300 UNITS/3 ML PEN SC ×2 (11:54→17:11)
[2020-09-16 13:37] LABS: Anion Gap 13.5 mmol/L (3-11); BUN 3 mg/dL (7-18); CO2 19.5 mmol/L (21.0-32.0); CREATININE 0.6 mg/dL (0.55-1.02); Calcium 9.5 mg/dL (8.5-10.1); Chloride 106 mmol/L (98-107); Glucose 178 mg/dL (74-106); Potassium 3.4 mmol/L (3.5-5.1); Sodium 139 mmol/L (136-145)
--- NOTE | 2020-09-16 15:16 | DM INPTCON_ITS ---
Date of service: 09/16/20 Time of Service: 14:00 Diabetes Inpatient Consult DESCRIPTION/ASSESSMENT: 20 y/o F admitted w/ DKA. Documentation reveals BG>500 prior to admission. She has had multiple DKA episodes in the last several months. Noted: patient has hx Crohn's disease. She denies non adherence to her insulin routine at home and was able to recite her regimen to this RD correctly. Monica is now in the 160's mg/dl resulting from drip insulin tx in ICU.She has a Free Style Libre2 CGM and stated that she did not replace the sensor prior to this episode of DKA. She reports that she has back up sensors at home. She would benefit from intensive 1:1 DM education, CGM data analysis r/t insulin timing/dosing, physical activity and food choices. She stated that she had her DM under control since age 14 and has been having DKA episodes since her recent and delivery of her baby. INTERVENTION: Reviewed option for outpatient DM education, CGM data analysis and support after discharge to help with DM control. PLAN: Monica agrees to use referral to DM education as outpatient from [facility] through care managers at [facility] to start outpatient visits for DM control. Time Spent in Nutritional Counseling and Treatment: 15 minutes face to face
[2020-09-16] MEDS: Potassium Chloride 20 MEQ TABCR PO ×2 (15:44→20:06)
[2020-09-16 17:36] LABS: Anion Gap 16.7 mmol/L (3-11); BUN 7 mg/dL (7-18); CO2 16.3 mmol/L (21.0-32.0); CREATININE 0.5 mg/dL (0.55-1.02); Chloride 104 mmol/L (98-107); Glucose 289 mg/dL (74-106); Potassium 3.9 mmol/L (3.5-5.1); Sodium 137 mmol/L (136-145)
--- NOTE | 2020-09-16 18:28 | NUR.NOTE ---
paged providers in regards to BMP results. Anion Gap was elevated, this feature writer inquired about restarting insulin drip. provider stated that there was no need to restart the drip if she was clinically managed with SQ insulin. VSS at this time, pt denies nausea, vomiting at this time. A new IV site placed at this time.
[2020-09-16] MEDS: Normal Saline Flush 10 ML SYR IVP (20:07)
[2020-09-17] VITALS (31 sets, daily range): BP systolic 109–145; BP diastolic 67–118; PULSE 59–134; RESP 10–28; TEMP 36.4–37.6; O2SAT 98–100
[2020-09-17 06:41] LABS: Absolute Basophil Count 0.03 10^3/uL (0.0-0.2); Absolute Eosinophil Count 0.05 10^3/uL (0.0-0.7); Absolute Lymphocyte Count 1.11 10^3/uL (1.2-3.4); Absolute Monocyte Count 0.63 10^3/uL (0.1-0.8); Absolute Neutrophil Count 4.63 10^3/uL (1.2-6.7); Basophils % 0.5; Eosinophils % 0.8; HCT 40.6 % (36.0-46.0); HGB 13.4 g/dL (11.2-15.7); Immature Grans % 1.5; Lymphocytes % 16.9; MCH 28.7 pg (27.0-33.0); MCV 86.9 fL (80-95); MPV 11.4 fL (8.0-11.0); Monocytes % 9.6; Neutrophils % 70.7; Nucleated RBC 0 %; Platelet Count 310 10^3/uL (130-400); RBC 4.67 10^6/uL (3.93-5.22); RDW 13.8 % (11.7-14.6); RDW-SD 43.7 fL; WBC 6.55 10^3/uL (4.4-10.8)
[2020-09-17] MEDS: Insulin Aspart 300 UNITS/3 ML PEN SC (06:47)
[2020-09-17 06:53] LABS: Anion Gap 15.7 mmol/L (3-11); BUN 6 mg/dL (7-18); CO2 19.3 mmol/L (21.0-32.0); CREATININE 0.7 mg/dL (0.55-1.02); Calcium 9.2 mg/dL (8.5-10.1); Chloride 103 mmol/L (98-107); Glucose 362 mg/dL (74-106); Potassium 4.1 mmol/L (3.5-5.1); Sodium 138 mmol/L (136-145)
--- NOTE | 2020-09-17 06:56 | NUR.NOTE ---
Nursing Note: Patient was extremely worried and angry knowing about her FS-341mg/dl and she would prefer to talk to the hospitalist.
[2020-09-17] MEDS: Potassium Chloride 20 MEQ TABCR PO (07:55)
[2020-09-17] MEDS: Normal Saline Flush 10 ML SYR IVP (08:08)
[2020-09-17 08:29] LABS: Hemoglobin A1C 11.3 % (<5.7)
--- NOTE | 2020-09-17 09:42 | CMPROGNOTE_ITS ---
- If Service Date Differs Date of service: 09/17/20 Time of Service: 09:42 Care Management Progress Note S/O: Monica was sitting up in bed when CM met with her. She verbalized disappointment in her course of illness. She shared that she is back on her insulin drip because her anion gap has increased from yesterday. She was very tearful and expressed frustration with the repeated hospitalizations for DKA since the of her baby. She said that she feels that people are insinuating that she is non-compliant with her diabetes care and she maintains that she has been doing everything that she is supposed to do. A: Monica is a 20 year old young lady admitted [facility] on 09/15/20 with DKA P:Monica will be discharged home with no new services. She will follow up with her PCP and plan of care and transport with her boyfriend. CM will continue to support patient, family and discharge planning needs.
[2020-09-17] MEDS: INSULIN REGULAR IN 0.9 % NACL 100 UNIT/100 ML BAG IV (10:35)
[2020-09-17] MEDS: Normal Saline 500 ML 30 ML IV (10:37)
[2020-09-17] MEDS: POTASSIUM CHLORIDE/D5-0.45NACL 1,000 ML 125 MEQ IV (10:40)
--- NOTE | 2020-09-17 11:26 | W.PM.PROGNOT ---
Date of Service Date of service: 09/17/20 Time of Service: 09:27 Assessment and Plan Assessment and plan (1) DKA (diabetic ketoacidoses): Status: Acute Assessment and plan: Her peripheral IV was starting to cause pain yesterday. Her anion gap had gone down to 13.5 at 13:23 so basal/bolus insulin initiated. Unfortunately her Gap increased. Re-initiated insulin drip after a Midline was placed. Monitor K and gap. A1c of 11.3. Qualifiers: Diabetes mellitus type: type 1 Diabetes mellitus complication detail: without coma Qualified Code(s): E10.10 - Type 1 diabetes mellitus with ketoacidosis without coma Subjective Subjective Patient reports: feels better, tolerating liquids well and afebrile Interval history since last seen: Concerned that her AM glucose was elevated above 300. Has an appetite; no N/V/abd pain. Tearful that her anion gap didn't completely close and has increased. Wants to go home to her 6 month old daughter and is frustrated that she has been hospitalized for DKA 3 times since the of her daughter. Exam Const General: cooperative and no acute distress Nutritional Appearance: average body habitus Orientation: alert and oriented x3 Resp Effort & Inspection: normal respiratory effort Auscultation: clear to auscultation bilaterally Cardio Rate: regular rate Rhythm: regular rhythm Heart Sounds: S1 normal and S2 normal Skin General skin exam: no rashes or lesions noted Extrem General: no pedal edema and no calf tenderness Objective Last Vital Signs Temp 37.6 C H 09/17/20 08:00 Pulse 120 H 09/17/20 08:01 Resp 22 09/17/20 09:00 BP 145/118 H 09/17/20 08:01 Pulse Ox 98 09/17/20 08:00 Laboratory Results - last 24 hr 09/16/20 09/16/20 09/17/20 13:23 17:15 06:15 WBC 6.55 D RBC 4.67 Hgb 13.4 Hct 40.6 MCV 86.9 MCH 28.7 MCHC 33.0 RDW 13.8 Plt Count 310 MPV 11.4 H Immature Gran % 1.5 Neutrophils % 70.7 Lymphocytes % 16.9 Monocytes % 9.6 Eosinophils % 0.8 Basophils % 0.5 Nucleated RBC % 0 Absolute Neutrophils 4.63 Absolute Lymphocytes 1.11 L Absolute Monocytes 0.63 Absolute Eosinophils 0.05 Absolute Basophils 0.03 Sodium 139 137 Potassium 3.4 L 3.9 Chloride 106 104 Carbon Dioxide 19.5 L 16.3 L Anion Gap 13.5 H 16.7 H BUN 3 L 7 Creatinine 0.6 0.5 L Estimated GFR/1.73 m2 >= 60.00 >= 60.00 Glucose 178 H 289 H D Hemoglobin A1c Calcium 9.5 9.0 09/17/20 09/17/20 06:15 06:15 WBC RBC Hgb Hct MCV MCH MCHC RDW Plt Count MPV Immature Gran % Neutrophils % Lymphocytes % Monocytes % Eosinophils % Basophils % Nucleated RBC % Absolute Neutrophils Absolute Lymphocytes Absolute Monocytes Absolute Eosinophils Absolute Basophils Sodium 138 Potassium 4.1 Chloride 103 Carbon Dioxide 19.3 L Anion Gap 15.7 H BUN 6 L Creatinine 0.7 Estimated GFR/1.73 m2 >= 60.00 Glucose 362 H Hemoglobin A1c 11.3 H Calcium 9.2
[2020-09-17 12:00] LABS: Anion Gap 13.2 mmol/L (3-11); BUN 6 mg/dL (7-18); CO2 21.8 mmol/L (21.0-32.0); CREATININE 0.5 mg/dL (0.55-1.02); Calcium 9.3 mg/dL (8.5-10.1); Chloride 107 mmol/L (98-107); Glucose 183 mg/dL (74-106); Potassium 3.6 mmol/L (3.5-5.1); Sodium 142 mmol/L (136-145)
--- NOTE | 2020-09-17 12:42 | PHA.REVIEW ---
Pharmacy Admission Review - Admission Clinical Review (Last Reviewed 09/15/20 @ 16:42 by Artemio Hadley MD) DKA (diabetic ketoacidoses) (Acute) No Known Allergies Allergy (Verified 07/02/20 14:36) Height 5 ft 7 in Weight 73.5 kg - Renal Dosing Renal Dosing: BUN 6 mg/dL (7-18) L 09/17/20 11:50 Creatinine 0.5 mg/dL (0.55-1.02) L 09/17/20 11:50 Medications needing adjustments: Reviewed - Anticoagulation Anticoagulation: Hgb 13.4 g/dL (11.2-15.7) 09/17/20 06:15 Hct 40.6 % (36.0-46.0) 09/17/20 06:15 Plt Count 310 10^3/uL (130-400) 09/17/20 06:15 INR 1.1 (0.9-1.1) 09/15/20 08:35 Creatinine 0.5 mg/dL (0.55-1.02) L 09/17/20 11:50 DVT Prohphylaxis: N/A Therapeutic Anticoagulation: N/A - Opiate Usage Evaluate Pain Scale/Pains Meds: N/A - Relevant Labs Sodium 142 mmol/L (136-145) 09/17/20 11:50 Potassium 3.6 mmol/L (3.5-5.1) 09/17/20 11:50 Chloride 107 mmol/L (98-107) 09/17/20 11:50 Magnesium 1.5 mg/dL (1.8-2.4) L 09/16/20 06:23 Electrolytes, C-Reactive P, ESR: Reviewed (potassium via fluids) - DM Control DM Control: Glucose 183 mg/dL (74-106) H D 09/17/20 11:50 Hemoglobin A1c 11.3 % (<5.7) H 09/17/20 06:15 Finger Stick Blood Glucose 147 Finger Stick Blood Glucose 160 Finger Stick Blood Glucose 256 Finger Stick Blood Glucose 341 Finger Stick Blood Glucose 341 Insulin Dosing: Reviewed (insulin gtt resarted at 1ml/hr, anion gap increased; A1C is 11.3) - Heart Failure/MN Heart Failure/MN: Troponin I < 0.05 ng/mL (<0.06) 09/15/20 10:24 EF%, ISRA's, B-Blockers, Diuretics: N/A - BP Control BP Control: Blood Pressure [Right Arm] 145/118 Blood Pressure [Right Arm] 129/91 Blood Pressure 145/118 Blood Pressure 109/67 Blood Pressure 129/91 Blood Pressure 115/78 If elevated: Reviewed - Qtc Review If Elevated: Reviewed List meds needing interventions: QTc 507 on admission - IV to PO Switch IV Medications: Reviewed - Home Meds Home Med List reviewed: Reviewed Relevent Home Meds Not ordered & why?: iinsulin gtt restarted - Current meds Current Medication Order Review: Reviewed
--- NOTE | 2020-09-17 12:45 | W.DIABETESNO ---
Date of service: 09/17/20 Time of Service: 12:45 Diabetes Note NOTE: Monica has outpatient diabetes education appt. 09/22/20 at 1 pm. Monica to replace freestyle Leyla sensor when returns home and bring reader to appt for down load. Recommend Monica make appt with bricklayer apprentice at [facility] [place] for medication adjustment. Monica is 6 months post , with multiple A1c> 10% and has had 3 hospitalizations since of her daughter due to DKA. Monica reports following insulin regime, using blood sugar meter. Recommend intensive diabetes educations, daily use of continuous glucose monitor and remote monitoring. Time Spent in Nutritional Counseling and Treatment: 10 min
[2020-09-17 16:36] LABS: Anion Gap 11.8 mmol/L (3-11); BUN 5 mg/dL (7-18); CO2 24.2 mmol/L (21.0-32.0); CREATININE 0.5 mg/dL (0.55-1.02); Chloride 107 mmol/L (98-107); Glucose 159 mg/dL (74-106); Potassium 3.5 mmol/L (3.5-5.1); Sodium 143 mmol/L (136-145)
--- NOTE | 2020-09-17 16:53 | W.PM.DS.N ---
Date of service: 09/17/20 Time of Service: 16:53 DS: Diagnosis Discharge Diagnosis (1) DKA (diabetic ketoacidoses): Status: Acute Discharge Plan Disposition Patient Disposition: HOME Condition: Good Discharge Details Reason For Visit: DKA Admit Date/Time: 09/15/20 09:32 Admit Provider: Artemio Hadley Attending Provider: Artemio Hadley Primary Care Provider: Unknown,Unknown Hospital Course Hospital Course: This is a 20 yo female with a PMH of DM1, DKA, gastroparesis. She presented to the ED via EMS after falling to the floor at 3 AM. She was unable to get up off the floor d/t weakness. She denied missing any doses of insulin. Her glucose before presentation was over 500. Given 50 units of humalog. EMS found her glucose to be in the 400's. IV NS initiated. She was noted, per EMS, to be in SVT and synchronized cardioversion x 3 given (1 at 100J and 2 at 150J). Upon arrival to the ED her HR was 200. Six mg adenosine given and her HR decreased to 140. EKG showed sinus tach at rate of 149. She had no complaint of CP. No F/C, cough/sputum. No N/V/diarrhea. Her pH was 6.8. Bicarb infused. Her tachypnea improved. WBC count was 35. Bands of 2%. K of 4.1. Anion Gap of 22.6. Creatinine 0.9. UA w/o evidence of infection. CXR w/o acute findings. Urine drug screen + for THC; uses nightly. Insulin drip initiated. Her glucose improved readily with treatment. Her anion gap decreased to 12.9 and d/t a tenuous peripheral IV that was causing pain, the drip was stopped and basal/bolus insulin initiated. However, her Gap widened again and a drip was re-initiated. Her glucose was controlled and her gap was 11.8 at time of changing back to basal/bolus insulin and discharged to home. The patient was very tearful and adamant that she wanted to be discharged and felt she would be able to control her glucose. Her Levemir was increased from 22 units SQ BID to 24 units SQ BID. She has f/u endocrinology appt scheduled. Home Meds and New Rx's Prescriptions: New Levemir FlexTouch U-100 Insuln 100 unit/mL (3 mL) insulin pen 24 unit subcut BID Qty: 15 RF: 0 insulin lispro 100 unit/mL insulin pen See Rx Instructions .ROUTE .COMPLEX Qty: 15 RF: 0 Continued (DME) FreeStyle Leyla 14 Day Sensor Kit See Rx Instructions .ROUTE .MEDSUPPLY Qty: 6 RF: 3 (DME) pen needle, diabetic [BD Ultra-Fine Gissel Pen Needle] 32 gauge x 5/32 needle 1 device miscellaneous DIRECTED Qty: 100 RF: 0 (DME) pen needle, diabetic [BD Ultra-Fine Gissel Pen Needle] 32 gauge x 5/32 needle See Rx Instructions .ROUTE .COMPLEX Qty: 100 RF: 0 (DME) FreeStyle Leyla 2 [place] Misc See Rx Instructions .ROUTE .MEDSUPPLY Qty: 1 RF: 0 insulin lispro [Humalog KwikPen Insulin] 100 unit/mL insulin pen 1 - 30 unit SC .AC (4-5 times daily) MDD 150 units Qty: 45 RF: 0 Levemir FlexTouch U-100 Insuln 100 unit/mL (3 mL) insulin pen 22 unit subcut BID Qty: 15 RF: 0 Discharge Instructions Instructions: Diabetes Type 1: Management (GEN) Activity:: Activity as Tolerated Equipment/Supplies:: No Equipment Needed Diet:: Carb Counting Discharge Orders Discharge Orders: Discharge Order (Routine); Ordered 09/17/20 Ordered By: Artemio Hadley Discharge Data Discharge Date/Time-TO BE ENTERED AT DEPARTURE: 09/17/20 17:45 DS: Summary Time Spent with Patient providing and/or coordinating discharge services: Greater than 30 minutes Status at Discharge Functional status at discharge: independent ambulation Overall status at discharge: patient is back to baseline Mental Status: mental status grossly normal Speech and Movement: speech and movement normal Mood: congruent mood Affect: normal affect Exam Const General: cooperative and no acute distress Nutritional Appearance: average body habitus Orientation: alert and oriented x3 Resp Effort & Inspection: normal respiratory effort Auscultation: clear to auscultation bilaterally Cardio Rate: regular rate Rhythm: regular rhythm Heart Sounds: S1 normal and S2 normal GI Palpation: soft and nontender Extrem General: no pedal edema and no calf tenderness Psych Appearance: grossly normal Mental Status: mental status grossly normal Speech and Movement: speech and movement normal Mood: congruent mood Affect: normal affect DS: Data Vitals/I&O Vitals and I&O: Vital Signs Temperature 37.6 C H 09/17/20 16:19 Temperature Source Temporal Artery Scan 09/17/20 16:19 Pulse 86 09/17/20 16:19 Pulse 93 H 09/17/20 16:08 Respiratory Rate 13 09/17/20 16:19 Respiratory Effort 09/17/20 16:19 Respiratory Depth Normal 09/17/20 16:19 Respiratory Pattern Normal 09/17/20 16:19 Blood Pressure 142/78 H 09/17/20 16:19 Blood Pressure Mean 99 09/17/20 16:19 Blood Pressure Position Sitting 09/17/20 16:19 Pulse Oximetry 99 09/17/20 16:19 Respiratory End-tidal CO2 15 09/15/20 13:20 Oxygen Delivery Method Room Air 09/17/20 16:19 Oxygen Flow Rate 0 09/17/20 16:19 Pain Level 0 09/17/20 16:19 Comment 09/15/20 09:53 Intake & Output 09/16/20 09/17/20 09/17/20 23:59 11:59 23:59 Intake Total 951.317 / 3266.391 0.417 / 7.300 6.883 / 7.300 Output Total 1075 / 1850 500 / 625 125 / 625 Balance -123.683 / 1416.391 -499.583 / -617.700 -118.117 / -617.700 Weight 73.5 kg Intake: IV 751.317 / 3066.391 0.417 / 7.300 6.883 / 7.300 Oral 200 / 200 Output: Urine 1075 / 1850 500 / 625 125 / 625 Other: Urine Color Light [place] Yellow Yellow Urine Appearance Clear Clear Clear Urine Odor Normal None None Comment using bedside commode. Voiding Methods Bedside Commode Bedside Commode Bedside Commode Data Completed and Pending Labs on day of discharge: Labs from last 24 hours 09/17/20 09/17/20 09/17/20 16:17 11:50 06:15 WBC RBC Hgb Hct MCV MCH MCHC RDW Plt Count MPV Immature Gran % Neutrophils % Lymphocytes % Monocytes % Eosinophils % Basophils % Nucleated RBC % Absolute Neutrophils Absolute Lymphocytes Absolute Monocytes Absolute Eosinophils Absolute Basophils Sodium 143 142 Potassium 3.5 3.6 Chloride 107 107 Carbon Dioxide 24.2 21.8 Anion Gap 11.8 H 13.2 H BUN 5 L 6 L Creatinine 0.5 L 0.5 L Estimated GFR/1.73 m2 >= 60.00 >= 60.00 Glucose 159 H 183 H D Hemoglobin A1c 11.3 H Calcium 9.0 9.3 09/17/20 09/17/20 09/16/20 06:15 06:15 17:15 WBC 6.55 D RBC 4.67 Hgb 13.4 Hct 40.6 MCV 86.9 MCH 28.7 MCHC 33.0 RDW 13.8 Plt Count 310 MPV 11.4 H Immature Gran % 1.5 Neutrophils % 70.7 Lymphocytes % 16.9 Monocytes % 9.6 Eosinophils % 0.8 Basophils % 0.5 Nucleated RBC % 0 Absolute Neutrophils 4.63 Absolute Lymphocytes 1.11 L Absolute Monocytes 0.63 Absolute Eosinophils 0.05 Absolute Basophils 0.03 Sodium 138 137 Potassium 4.1 3.9 Chloride 103 104 Carbon Dioxide 19.3 L 16.3 L Anion Gap 15.7 H 16.7 H BUN 6 L 7 Creatinine 0.7 0.5 L Estimated GFR/1.73 m2 >= 60.00 >= 60.00 Glucose 362 H 289 H D Hemoglobin A1c Calcium 9.2 9.0 Preliminary micro results at discharge 09/15/20 10:05 Blood Culture - Preliminary Blood NO GROWTH 48 HOURS 09/15/20 09:25 Blood Culture - Preliminary Blood NO GROWTH 48 HOURS PFSH Medical History Crohn's disease Elevated blood pressure affecting in third trimester, antepartum Type 1 diabetes mellitus [facility] [place] Endo; h/o hospitalizations for DKA Surgical History Colonoscopy - [facility] (03/06/17) Family History Maternal Grandfather Breast cancer Paternal Cousin Diabetes Maternal Grandfather Heart disease Mother Hypertension Social History Smoking/Tobacco Use Status: Never Smoking risk assessment performed?: Yes Alcohol Intake: never Drug use: Daily Substance use type: marijuana Adopted: No Caregiver/Support person: Yes (2 month old ricardo) Household members: significant other, children and other Details: Fianc?: Glenn; 2-month-old (as of May 2020) Housing: house Number of Children: 1 Communication Needs: None Education Level: high school current occupation: [employer] Pets and animals: Yes Pets and animals: dog(s) Sexually active: Yes Do you think of yourself as: straight/heterosexual Current gender identity: female What is your relationship status?: living with partner Panel score (0-1 are the most socially isolated patients): 1 What type of physical activity do you participate in: walking Seatbelt use: always Helmet use: Yes Drive intox or ride 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
== END 2020-09-17 17:45 | disposition home or self-care (01) | DRG 638 ==
LOC: ER 13:51 → ICU 13:54
PROVIDERS: General Practice; Internal Medicine; Admitting Provider Family Medicine; Emergency Provider Emergency Medicine; Visit Provider Family Medicine
DX: E10.10 Type 1 diabetes mellitus with ketoacidosis without coma; K50.90 Crohn's disease, unspecified, without complications; E10.43 Type 1 diabetes mellitus with diabetic autonomic (poly)neuropathy; K31.84 Gastroparesis
CPT/HCPCS: 36410; 36415; 36416; 80048; 80053; 80307; 82550; 82805; 82962; 83690; 87040; 87637; 93005; 96361; 96365; 96366; 96367; 96375; 96376; 99223; 99232; 99239; 99291; 99292; 71045; 80320; 80329; 81003; 81015; 83036; 83605; 83735; 84132; 84484; 84703; 85025; 85610; 85730; 87086; 93010; 99238; J0153; J2405; J3480; J3490

== ENCOUNTER 2021-04-09 19:51 | Emergency (ER) | payer BC, SELFPAY ==
[2021-04-09 19:54] VITALS: BP 148/84; PULSE 120; RESP 16; TEMP 36.4; O2SAT 98
--- NOTE | 2021-04-09 20:03 | W.ED.GENAD ---
Discharge Plan Disposition Patient Disposition: HOME Condition: Stable Discharge Details Clinical Impression: Abscess of vulva Primary Care Provider: Unknown,Unknown ED Provider: Jun Adams Home Meds and New Rx's Prescriptions: New sulfamethoxazole-trimethoprim [Bactrim DS] 800-160 mg tablet 1 tab PO BID Qty: 14 RF: 0 amoxicillin-pot clavulanate [Augmentin] 875-125 mg tablet 1 tab PO BID Qty: 14 RF: 0 Continued (DME) FreeStyle Leyla 14 Day Sensor Kit See Rx Instructions .ROUTE .MEDSUPPLY Qty: 6 RF: 3 Levemir FlexTouch U-100 Insuln 100 unit/mL (3 mL) insulin pen 20 unit subcut BID RF: 0 (DME) pen needle, diabetic [BD Ultra-Fine Gissel Pen Needle] 32 gauge x 5/32 needle 1 device miscellaneous DIRECTED Qty: 100 RF: 0 (DME) pen needle, diabetic [BD Ultra-Fine Gissel Pen Needle] 32 gauge x 5/32 needle See Rx Instructions .ROUTE .COMPLEX Qty: 100 RF: 0 (DME) FreeStyle Leyla 2 [place] Misc See Rx Instructions .ROUTE .MEDSUPPLY Qty: 1 RF: 0 insulin lispro [Humalog KwikPen Insulin] 100 unit/mL insulin pen 1 - 30 unit SC .AC (4-5 times daily) MDD 150 units Qty: 45 RF: 0 Discharge Instructions Instructions: Abscess (ED) Additional Instructions: try to sit in a warm bath three times a day for twenty minutes or more frequent if able to help the abscess drain follow up with [facility] this week [phone] if you feel more ill, have fevers or severe worsening pain return to the emergency department Medical Decision Making 20 yo female with hx of t1dm who comes in with chief complaint of a lesion of her vagina for 2 days and has never had this before. Denies fevers, vaginal discharge or bleeding. I had nurse director food safety wil tadeo at the bedside and on exam at the 11oclock position just at the inner vulva she has a fluctuant mass that is tender and about the size of a golf ball consistent with a vulvar abscess. No erythema of the abdomen wall or other lesions. I discussed with communication signals intelligence obgyn Dr. Bone who recommended I and D and do not leave any catheter or packing and would need to do soaks at home. Discussed plan with patient and she is willing to try an I and D using sterile technique I made a 1cm incision over the abscess and copious purulent material came out. Pt is stable, HR now 98 and is stable for d/c, will have her f/u with women's wellness this week and return precautions given Differential Diagnosis Differential Diagnosis: abscess, cyst Medical Records Medical records reviewed: Yes I reviewed the patient's medical records. HPI General Mode of arrival: ambulatory. Date/Time Provider Initiated Documentation: 04/09/21 19:51. Limitations to Documentation: no limitations. Information obtained by: patient. History of Present Illness 20 year old F presents to the emergency department with the chief complaint of ?cyst, described as moderate, Patient started experiencing this day(s) (2) and it has been constant. No relieving factors improve symptom(s), No exacerbating factors reported . Patient notes no other symptoms.. Patient did receive the following treatments prior to arrival, none Related Data Home Medications Medication Instructions Recorded Confirmed pen needle, diabetic [BD #100 ea 05/20/20 05/25/20 Ultra-Fine Gissel Pen Needle] pen needle, diabetic [BD #100 ea 05/20/20 05/25/20 Ultra-Fine Gissel Pen Needle] FreeStyle Leyla 2 [place] #1 ea 07/03/20 flash glucose sensor #6 ea 07/08/20 insulin lispro [Humalog KwikPen 1 - 30 unit SC .AC (4-5 times 09/17/20 04/09/21 Insulin] daily) #45 syrg MDD 150 units Levemir FlexTouch U-100 Insuln 20 unit SUBCUT BID 04/09/21 04/09/21 amoxicillin-pot clavulanate 1 tab PO BID #14 tab 04/09/21 [Augmentin] sulfamethoxazole-trimethoprim 1 tab PO BID #14 tab 04/09/21 [Bactrim DS] Previous Rx's Medication Instructions Recorded pen needle, diabetic [BD #100 ea 05/20/20 Ultra-Fine Gissel Pen Needle] pen needle, diabetic [BD #100 ea 05/20/20 Ultra-Fine Gissel Pen Needle] FreeStyle Leyla 2 [place] #1 ea 07/03/20 flash glucose sensor #6 ea 07/08/20 insulin lispro [Humalog KwikPen 1 - 30 unit SC .AC (4-5 times 09/17/20 Insulin] daily) #45 syrg MDD 150 units amoxicillin-pot clavulanate 1 tab PO BID #14 tab 04/09/21 [Augmentin] sulfamethoxazole-trimethoprim 1 tab PO BID #14 tab 04/09/21 [Bactrim DS] Allergies Allergy/AdvReac Type Severity Reaction Status Date / Time No Known Allergies Allergy Verified 04/09/21 19:57 General Stated 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 CHACHA: 3 Review of Systems All systems reviewed & are unremarkable except as noted in HPI and below Constitutional Constitutional: Denies chills and Denies fever(s) Cardiovascular Cardiovascular: Denies chest pain and Denies dyspnea Respiratory Respiratory: Denies cough and Denies dyspnea Gastrointestinal Gastrointestinal: Denies abdominal pain, Denies nausea and Denies vomiting Musculoskeletal Musculoskeletal: Denies joint swelling [facility] Medical History Crohn's disease Elevated blood pressure affecting in third trimester, antepartum Type 1 diabetes mellitus [facility] Endo; h/o hospitalizations for DKA Surgical History Colonoscopy - [facility] (03/06/17) Family History Maternal Grandfather Breast cancer Paternal Cousin Diabetes Maternal Grandfather Heart disease Mother Hypertension Social History Smoking/Tobacco Use Status: Never Smoking risk assessment performed?: Yes Alcohol Intake: never Drug use: Daily Substance use type: marijuana Adopted: No Caregiver/Support person: Yes (2 month old ricardo) Household members: significant other, children and other Details: Fianc?: Glenn; 2-month-old (as of May 2020) Housing: house Number of Children: 1 Communication Needs: None Education Level: high school current occupation: 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 Working smoke detector in home: Yes Fire extinguisher in home: No Carbon monox detector in home: Yes Firearms in home: No Do you feel safe at home: Yes Do you feel safe in your relationship?: Yes Victim of physical abuse: No Victim of emotional abuse: No Victim of sexual abuse: No Female Reproductive History Menstrual Age of Menarche: 10 Duration of menses: 3-5 days control method: pills History History 1 Para 0 Hx # Term Pregnancies 0 Multiple births 0 Hx # Pregnancies 0 Ectopic pregnancies 0 AB induced 0 Hx Number of Living Children 0 AB spontaneous 0 Exam Const General: no acute distress Orientation: alert HENMT Head: normal to inspection Ears: external ears normal General nose exam: external nose normal Mouth: moist mucous membranes Eyes General: appearance normal, both eyes and all related structures Neck Neck: normal visual inspection Resp Effort & Inspection: normal respiratory effort and able to speak in complete sentences Cardio Rate: regular rate Skin General skin exam: elasticity normal Neuro General: patient alert and patient oriented x3 Extrem General: normal to inspection Psych Mental Status: mental status grossly normal Course Vital Signs Vital signs: Vital Signs Temperature 36.4 C L 04/09/21 19:54 Pulse 120 H 04/09/21 19:54 Respiratory Rate 16 04/09/21 19:54 Blood Pressure 148/84 H 04/09/21 19:54 Pulse Oximetry 98 04/09/21 19:54 Temperature 36.4 C L 04/09/21 19:54 Temperature Source Temporal Artery Scan 04/09/21 19:54 Pulse 120 H 04/09/21 19:54 Respiratory Rate 16 04/09/21 19:54 Respiratory Effort Non-Labored 04/09/21 19:59 Blood Pressure 148/84 H 04/09/21 19:54 Blood Pressure Position Sitting 04/09/21 19:54 Pulse Oximetry 98 04/09/21 19:54 Oxygen Delivery Method Room Air 04/09/21 19:54 Oxygen Flow Rate 0 04/09/21 19:54 Pain Level 4 04/09/21 19:54 Procedures Abscess I/D Site: Other (vulvar abscess) Side (if applicable): Right Local Anesthetic: Other Anesthetic (topical lidocaine/epi/tetracaine) Technique: Incised with #11 Blade Amount of fluid expressed (mL): 10 (ccc) Irrigation: Yes Packing used?: None
[2021-04-09] MEDS: Lidocaine/Epinephri/Tetracaine Topical Gel 3 ML TP (20:17)
--- NOTE | 2021-04-09 20:34 | NUR.NOTE ---
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 Almendarez Note:
--- NOTE | 2021-04-09 20:38 | NUR.NOTE ---
Nursing Note: referal sent to [facility] to folow up this coming week for vulva abcess 04/09/21
[2021-04-09] MEDS: Amoxicillin 875/Clav. 125 TAB PO (20:42)
[2021-04-09] MEDS: Sulfameth/Trimeth DS TAB 1 TAB PO (20:42)
[2021-04-09 20:52] VITALS: BP 127/66; PULSE 98; RESP 18; O2SAT 98
--- NOTE | 2021-04-09 20:52 | NUR.NOTE ---
Ambulates to restroom with steady gait. Provided with mesh panties, pad and clothes to cleanse area. Nursing Note:
== END 2021-04-09 20:55 | disposition home or self-care (01) ==
PROVIDERS: Emergency Provider Emergency Medicine
DX: N76.4 Abscess of vulva (principal); E10.9 Type 1 diabetes mellitus without complications
CPT/HCPCS: 56405

== ENCOUNTER 2021-08-04 18:52 | Inpatient (IN) | payer BC, SELFPAY ==
[2021-08-04] VITALS (51 sets, daily range): BP systolic 110–179; BP diastolic 70–118; PULSE 44–172; RESP 22–47; TEMP 36.4; O2SAT 96–100
--- NOTE | 2021-08-04 18:45 | RT.EKG_ITS ---
APPROVED REPORT Exam: Resting ECG Reason for Exam: dka Patient Location: E HR:100 bpm ECG Measurements Heart Rate 100 AXIS TX 148 P 74 QRSd 112 QRS 63 QT 400 T 53 QTc 516 Conclusion Sinus tachycardia...rate> 99 Left ventricular hypertrophy...multiple LVH criteria Prolonged QT interval...QTc >495mS
[2021-08-04 19:09] LABS: HCO3 (Venous) 3 mmol/L (23-28); O2 Sat (Venous) 90 %; TCO2 (Venous) 3 mmol/L (24-29); pO2 (Venous) 90 mmHg
[2021-08-04] MEDS: Normal Saline 1,000 ML 1000 ML IV (19:12)
[2021-08-04 19:14] LABS: HCT 54.1 % (36.0-46.0); HGB 15.6 g/dL (11.2-15.7); MCH 29.8 pg (27.0-33.0); MCHC 28.8 % (32.0-36.0); MCV 103.2 fL (80-95); MPV 11.1 fL (8.0-11.0); Nucleated RBC 0 %; Platelet Count 452 10^3/uL (130-400); RBC 5.24 10^6/uL (3.93-5.22); RDW 12.4 % (11.7-14.6); RDW-SD 47.5 fL; pH (Venous) 6.78 (7.31-7.41)
[2021-08-04 19:15] LABS: pCO2 (Venous) 19 mmHg (41-51)
[2021-08-04 19:19] LABS: Source Nasal/Nares
[2021-08-04 19:25] LABS: Bilirubin Negative (Negative); Blood Trace-intact (Negative); Clarity Sl Cloudy (Clear); Glucose 500 mg/dL (Negative); Ketones >=160 mg/dL (Negative); Leukocyte Esterase Negative (Negative); Nitrite Negative (Negative); Specific Gravity >= 1.030 (1.005-1.025); Urobilinogen 0.2 EU/dL (Up TO 0.2)
--- NOTE | 2021-08-04 19:26 | ED.GENADUL_ITS ---
Discharge Plan Disposition Patient Disposition: [facility] INPATIENT Condition: Critical Discharge Details Chief Complaint: Diabetes Clinical Impression: COVID, DKA (diabetic ketoacidoses) Primary Care Provider: Unknown,Unknown ED Provider: Gerardo Romo Home Meds and New Rx's Prescriptions: No Action (DME) FreeStyle Leyla 14 Day Sensor Kit See Rx Instructions .ROUTE .MEDSUPPLY Qty: 6 RF: 3 Levemir FlexTouch U-100 Insuln 100 unit/mL (3 mL) insulin pen 20 unit subcut BID RF: 0 (DME) pen needle, diabetic [BD Ultra-Fine Gissel Pen Needle] 32 gauge x 5/32 needle 1 device miscellaneous DIRECTED Qty: 100 RF: 0 (DME) pen needle, diabetic [BD Ultra-Fine Gissel Pen Needle] 32 gauge x 5/32 needle See Rx Instructions .ROUTE .COMPLEX Qty: 100 RF: 0 (DME) FreeStyle Leyla 2 [place] Misc See Rx Instructions .ROUTE .MEDSUPPLY Qty: 1 RF: 0 insulin lispro [Humalog KwikPen Insulin] 100 unit/mL insulin pen 1 - 30 unit SC .AC (4-5 times daily) MDD 150 units Qty: 45 RF: 0 Medical Decision Making 1930??20-year-old female arrives via EMS in critical condition. Patient was seen immediately on arrival. History review of systems is limited secondary to altered mental status. Patient has a history of insulin-dependent diabetes. She was noted to have progressively altered mentation today. EMS found patient to be hyperglycemic and in supraventricular tachycardia. Adenosine 6 mg and metoprolol 5 mg x 2 was administered prehospitally. Patient is lethargic and in distress with Kussmaul respirations. plater printed circuit board panels was reviewed by me and she is in sinus tachycardia with heart rate in the 110s to 120s. She is normotensive. I will provide fluid resuscitation with 2 L of crystalloid. VBG was reviewed by me and consistent with metabolic acidosis severe with pH of 6.7. I will initiate treatment with sodium bicarb 100 mEq infused in NS over 2 hours. -- COVID test resulted positive. Repeat chemistry reveals increased potassium. Slight improvement in anion gap. 2099 -- Case discussed with action installer hospitalist Dr. Riggs who will evaluate paitient in ED and admit to ICU. 2144 -- Repeat VBG reveals mild improvement in acidosis. Bicarb still infusing. Potassium has decreased to 4.9. Will add KCl 20meq to remaining biacarb infusion. Continue q1 chem for now. 2214 -- Patient evaluated by Dr. Riggs - care transitioned to hospitalist service. I did speak with patient's mother and updated her on course. HPI General Mode of arrival: EMS . Date/Time Provider Initiated Documentation: 08/04/21 18:59 . Limitations to Documentation: altered mental status . Information obtained by: EMS . HPI Narrative: 20-year-old female with history of insulin-dependent diabetes presents with altered mental status. History and review of systems is limited secondary to altered mental status. Per EMS they were called by boyfriend with concern for change in mentation today. Blood sugar was found to be elevated. Patient was found to be in supraventricular tachycardia. EMS initially administered adenosine 6 mg which did provide initial response with a subsequent return to SVT. Metoprolol 5 mg x 2 was then administered by EMS with effect. Heart rate improved to 120s. Related Data Home Medications Medication Instructions Recorded Confirmed pen needle, diabetic [BD #100 ea 05/20/20 05/25/20 Ultra-Fine Gissel Pen Needle] pen needle, diabetic [BD #100 ea 05/20/20 05/25/20 Ultra-Fine Gissel Pen Needle] FreeStyle Leyla 2 [place] #1 ea 07/03/20 flash glucose sensor #6 ea 07/08/20 insulin lispro [Humalog KwikPen 1 - 30 unit SC .AC (4-5 times 09/17/20 08/04/21 Insulin] daily) #45 syrg MDD 150 units Levemir FlexTouch U-100 Insuln 20 unit SUBCUT BID 04/09/21 08/04/21 Previous Rx's Medication Instructions Recorded pen needle, diabetic [BD #100 ea 05/20/20 Ultra-Fine Gissel Pen Needle] pen needle, diabetic [BD #100 ea 05/20/20 Ultra-Fine Gissel Pen Needle] FreeStyle Leyla 2 [place] #1 ea 07/03/20 flash glucose sensor #6 ea 07/08/20 insulin lispro [Humalog KwikPen 1 - 30 unit SC .AC (4-5 times 09/17/20 Insulin] daily) #45 syrg MDD 150 units Allergies Allergy/AdvReac Type Severity Reaction Status Date / Time No Known Allergies Allergy Verified 08/04/21 19:03 General Stated Complaint: Diabetes CHACHA: 2 Review of Systems Unobtainable due to mental status Constitutional Constitutional: Denies fever(s) PFSH All Active Problems (Updated 08/04/21 @ 22:34 by Gerardo Romo MD) COVID (Acute) Abscess of vulva (Acute) DKA (diabetic ketoacidoses) (Acute) Nausea and vomiting (Acute) Type 1 diabetes mellitus (Chronic) [facility] [place]; h/o hospitalizations for DKA Crohn's disease (Chronic) Elevated blood pressure affecting in third trimester, antepartum (Acute) Surgical History Colonoscopy - [facility] (03/06/17) Family History Maternal Grandfather Breast cancer Paternal Cousin Diabetes Maternal Grandfather Heart disease Mother Hypertension Social History Smoking/Tobacco Use Status: Never Smoking risk assessment performed?: Yes Alcohol Intake: never Drug use: Daily Substance use type: marijuana Adopted: No Caregiver/Support person: Yes (2 month old ricardo) Household members: significant other, children and other Details: Fianc?: Glenn; 2-month-old (as of May 2020) Housing: house Number of Children: 1 Communication Needs: None Education Level: high school current occupation: [employer] Pets and animals: Yes Pets and animals: dog(s) Sexually active: Yes Do you think of yourself as: straight/heterosexual Current gender identity: female What is your relationship status?: living with partner Panel score (0-1 are the most socially isolated patients): 1 What type of physical activity do you participate in: walking Seatbelt use: always Helmet use: Yes 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 Working smoke detector in home: Yes Fire extinguisher in home: No Carbon monox detector in home: Yes Firearms in home: No Do you feel safe at home: Yes Do you feel safe in your relationship?: Yes Victim of physical abuse: No Victim of emotional abuse: No Victim of sexual abuse: No Female Reproductive History Menstrual Age of Menarche: 10 Duration of menses: 3-5 days control method: pills History History 1 Para 0 Hx # Term Pregnancies 0 Multiple births 0 Hx # Pregnancies 0 Ectopic pregnancies 0 AB induced 0 Hx Number of Living Children 0 AB spontaneous 0 Exam Const General: acute distress, ill appearing and lethargic Nutritional Appearance: malnourished Orientation: alert, oriented to place and confused Limitations: altered mental status [facility] Head: normocephalic and atraumatic Mouth: mucous membranes dry Eyes Conjunctivae: normal conjunctivae Sclera: normal sclerae Neck Neck: trachea midline and supple Resp Auscultation: clear to auscultation bilaterally, no rales, no rhonchi and no wheezes Cardio Rate: tachycardic Rhythm: regular rhythm GI Palpation: soft, not firm, no guarding, no masses, not rigid and nontender Skin General skin exam: mottling Neuro General: patient alert and tone normal Extrem General: no edema Course Vital Signs Vital signs: Vital Signs Temperature 36.4 C L 08/04/21 18:58 Pulse 100 H 08/04/21 18:58 Respiratory Rate 40 H 08/04/21 18:58 Blood Pressure 128/76 08/04/21 18:58 Pulse Oximetry 100 08/04/21 18:58 Temperature 36.4 C L 08/04/21 18:58 Temperature Source Temporal Artery Scan 08/04/21 18:58 Pulse 100 H 08/04/21 18:58 Respiratory Rate 40 H 08/04/21 18:58 Respiratory Effort 08/04/21 19:06 Blood Pressure 128/76 08/04/21 18:58 Blood Pressure Position Supine 08/04/21 18:58 Pulse Oximetry 100 08/04/21 18:58 Oxygen Delivery Method Room Air 08/04/21 18:58 Oxygen Flow Rate 0 08/04/21 18:58 Pain Level 0 08/04/21 18:58 Lab/Test Results Lab/Test Results: Laboratory Tests Range/Units 08/04/21 08/04/21 19:03 19:17 VBG pH (7.31-7.41) 6.78 L* VBG pCO2 (41-51) mmHg 19 L* VBG pO2 mmHg 90 VBG HCO3 (23-28) mmol/L 3 L VBG Total CO2 (24-29) mmol/L 3 L VBG O2 Saturation % 90 VBG Base Excess (-2-3) mmol/L < -15 L COVID-19 Source Nasal/Nares
[2021-08-04 19:29] LABS: Absolute Lymphocyte Count 2.18 10^3/uL (1.2-3.4); Absolute Monocyte Count 0.73 10^3/uL (0.1-0.8); Absolute Neutrophil Count 20.57 10^3/uL (1.2-6.7); Bands % 9; Diff Comment Manual Differential; Metamyelocytes % 3; RBC Morphology Normal
[2021-08-04 19:30] LABS: ALT 36 U/L (14-59); AST 85 U/L (15-37); Albumin 3.8 g/dL (3.4-5.0); Alkaline Phosphatase 166 U/L (46-116); BUN 17 mg/dL (7-18); Bilirubin, Total 0.4 mg/dL (0.2-1.0); CREATININE 1.3 mg/dL (0.55-1.02); Calcium 8.6 mg/dL (8.5-10.1); Chloride 103 mmol/L (98-107); Estimated GFR 51.71 (mL/min/1.73m2); Magnesium 2.9 mg/dL (1.8-2.4); Potassium 5.6 mmol/L (3.5-5.1); Sodium 139 mmol/L (136-145); Total Protein 8.8 g/dL (6.4-8.2); Troponin I < 50 ng/L (<or=60)
[2021-08-04 19:31] LABS: Anion Gap 31.00001 mmol/L (3-11)
[2021-08-04 19:32] LABS: Glucose 707 mg/dL (74-106)
[2021-08-04 19:33] LABS: CO2 < 5.0 mmol/L (21.0-32.0)
[2021-08-04 19:37] LABS: Bacteria Moderate HPF (Negative); Crystals Negative HPF (Negative); Epithelial Cells Few HPF (Negative); Mucus Trace (Negative); RBC 0-2 HPF (0-2)
[2021-08-04 19:38] LABS: C & S Indicated? Yes; Casts 3-5 Hyaline LPF (Negative)
[2021-08-04] MEDS: Sodium Bicarbonate 50 MEQ/50 ML SYR (19:47)
[2021-08-04] MEDS: Normal Saline 500 ML 200 ML IV (19:48)
[2021-08-04 19:50] LABS: TSH (W/Ref FT4) 0.18 uIU/mL (0.36-3.74)
[2021-08-04] MEDS: INSULIN REGULAR IN 0.9 % NACL 100 UNIT/100 ML BAG 7.3 UNIT IV (19:54)
[2021-08-04 20:06] LABS: COVID-19 PCR POSITIVE (Negative)
[2021-08-04] MEDS: Prochlorperazine 10 MG/2 ML VIAL 5 MG IVP (20:15)
[2021-08-04 20:19] LABS: Anion Gap 29.1 mmol/L (3-11); BUN 18 mg/dL (7-18); CO2 5.9 mmol/L (21.0-32.0); CREATININE 1.2 mg/dL (0.55-1.02); Calcium 7.2 mg/dL (8.5-10.1); Chloride 110 mmol/L (98-107); Estimated GFR 56.71 (mL/min/1.73m2); Sodium 145 mmol/L (136-145)
[2021-08-04 20:21] LABS: Glucose 618 mg/dL (74-106); Potassium 6.2 mmol/L (3.5-5.1)
--- NOTE | 2021-08-04 21:00 | DI.RAD_ITS ---
Exam(s) XR PORTABLE CHEST AP EXAM: XR PORTABLE CHEST AP CLINICAL HISTORY: covid, dka TECHNIQUE: 2D digital imaging was performed. COMPARISON: CR XR PORTABLE CHEST AP from 09/15/2020 FINDINGS: LUNGS: Clear. No pleural abnormality seen. HEART: Normal. MEDIASTINUM: Normal. BONES: Scoliosis. IMPRESSION: No acute pulmonary findings. DATA REPOSITORY: RADIATION DOSE DELIVERED:
[2021-08-04 21:13] LABS: HCO3 (Venous) 4 mmol/L (23-28); O2 Sat (Venous) 86 %; TCO2 (Venous) 5 mmol/L (24-29); pCO2 (Venous) 26 mmHg (41-51); pO2 (Venous) 69 mmHg
[2021-08-04 21:16] LABS: pH (Venous) 6.83 (7.31-7.41)
[2021-08-04 21:27] LABS: Anion Gap 30.6 mmol/L (3-11); BUN 18 mg/dL (7-18); CO2 6.4 mmol/L (21.0-32.0); CREATININE 1.2 mg/dL (0.55-1.02); Calcium 7.5 mg/dL (8.5-10.1); Chloride 111 mmol/L (98-107); Estimated GFR 56.71 (mL/min/1.73m2); Potassium 4.9 mmol/L (3.5-5.1); Sodium 148 mmol/L (136-145)
[2021-08-04 21:30] LABS: Glucose 534 mg/dL (74-106)
[2021-08-04] MEDS: POTASSIUM CHLORIDE 20 MEQ/100 ML BAG 50 MEQ IVPB (22:00)
--- NOTE | 2021-08-04 22:24 | W.PM.HP.N ---
Date of service: 08/04/21 Time of Service: 22:25 Assessment and Plan Assessment and plan (1) DKA (diabetic ketoacidoses): Status: Acute Assessment and plan: She is quite ill with the diabetic ketoacidosis. She is acidotic and has received sodium bicarb over the last few hours. Her repeat venous gas still shows pH less than 7.0. Her blood sugars are improving with the insulin infusion. She will be admitted to intensive care unit for further care. Chart frequent monitoring of her labs, blood sugars and vital signs. Qualifiers: Diabetes mellitus type: type 1 Diabetes mellitus complication detail: without coma Qualified Code(s): E10.10 - Type 1 diabetes mellitus with ketoacidosis without coma (2) COVID: Status: Acute Assessment and plan: She is unvaccinated. She is not sure where she might have caught this illness but it is quite prevalent right now everywhere across the world. I will check labs on her. I do not see any evidence of Covid on her chest x-ray but the radiologic interpretation is pending. She is not requiring oxygen supplementation at the present time. History of Present Illness History of Present Illness Chief Complaint: altered mental status and tachycardia Narrative: This 20-year-old female is insulin-dependent diabetic. She has been insulin-dependent since age 14. She lives with her fianc? and [id number] child. She did not feel well yesterday and today. Her blood sugars have been high today. She says her insulin was not working. EMS was called because of altered mental status. She was found to be tachycardic and appeared to be in SVT. She was given 6 mg of adenosine which broke her tachycardia but then it recurred and she was then given 2 doses of intravenous metoprolol. Her heart rate improved to a rate of 120. She presented here to the emergency department and apparently diabetic ketoacidosis and initial pH was approximately 6.7. I was called as hospitalist comes here for further care. She has received approximately 2500 cc of intravenous fluids is currently on insulin infusion. She was found to be Covid positive and she says she is not wanting to receive the vaccine. She does tell me she has had some cough and congestion for a couple days. She does not know where she might of caught the virus. Review of Systems Constitutional Constitutional: Denies chills and Denies fever(s) Cardiovascular Cardiovascular: Denies chest pain, Denies syncope, Reports rapid heart rate, Denies irregular heart rhythm and Denies dyspnea on exertion Respiratory Respiratory: Reports cough, Denies dyspnea on exertion, Denies stridor and Denies wheezing Gastrointestinal Gastrointestinal: Denies diarrhea, Reports nausea and Reports vomiting Genitourinary Genitourinary: Denies urinary frequency and Denies difficulty voiding Neurologic Neurologic: Denies syncope Allergic/Immunologic Allergic/Immunologic: Denies wheezing PFSH All Active Problems (Updated 08/04/21 @ 22:32 by Vijay Riggs MD) COVID (Acute) Abscess of vulva (Acute) DKA (diabetic ketoacidoses) (Acute) Nausea and vomiting (Acute) Type 1 diabetes mellitus (Chronic) [facility] Endo; h/o hospitalizations for DKA Crohn's disease (Chronic) Elevated blood pressure affecting in third trimester, antepartum (Acute) Surgical History Colonoscopy - MAC (03/06/17) Family History Maternal Grandfather Breast cancer Paternal Cousin Diabetes Maternal Grandfather Heart disease Mother Hypertension Social History Smoking/Tobacco Use Status: Never Smoking risk assessment performed?: Yes Alcohol Intake: never Drug use: Daily Substance use type: marijuana Adopted: No Caregiver/Support person: Yes (2 month old ricardo) Household members: significant other, children and other Details: Fianc?: Glenn; 2-month-old (as of May 2020) Housing: house Number of Children: 1 Communication Needs: None Education Level: high school current occupation: [employer] Pets and animals: Yes Pets and animals: dog(s) Sexually active: Yes Do you think of yourself as: straight/heterosexual Current gender identity: female What is your relationship status?: living with partner Panel score (0-1 are the most socially isolated patients): 1 What type of physical activity do you participate in: walking Seatbelt use: always Helmet use: Yes Drive 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 Working smoke detector in home: Yes Fire extinguisher in home: No Carbon monox detector in home: Yes Firearms in home: No Do you feel safe at home: Yes Do you feel safe in your relationship?: Yes Victim of physical abuse: No Victim of emotional abuse: No Victim of sexual abuse: No Female Reproductive History Menstrual Age of Menarche: 10 Duration of menses: 3-5 days control method: pills History History 1 Para 0 Hx # Term Pregnancies 0 Multiple births 0 Hx # Pregnancies 0 Ectopic pregnancies 0 AB induced 0 Hx Number of Living Children 0 AB spontaneous 0 Meds Allergies and Home Medications Allergies Allergy/AdvReac Type Severity Reaction Status Date / Time No Known Allergies Allergy Verified 08/04/21 19:03 Home Medications Medication Instructions Recorded Confirmed Type pen needle, diabetic [BD #100 ea 05/20/20 05/25/20 Rx Ultra-Fine Gissel Pen Needle] pen needle, diabetic [BD #100 ea 05/20/20 05/25/20 Rx Ultra-Fine Gissel Pen Needle] FreeStyle Leyla 2 [place] #1 ea 07/03/20 Rx flash glucose sensor #6 ea 07/08/20 Rx insulin lispro [Humalog KwikPen 1 - 30 unit SC .AC (4-5 times 09/17/20 08/04/21 Rx Insulin] daily) #45 syrg MDD 150 units Levemir FlexTouch U-100 Insuln 20 unit SUBCUT BID 04/09/21 08/04/21 History Exam Const General: cooperative, in distress and ill appearing Nutritional Appearance: cachectic Orientation: alert and awake [facility] Mouth: mucous membranes dry Teeth and gingiva: poor dentition Neck Neck: normal visual inspection and no lymphadenopathy Resp Effort & Inspection: normal respiratory effort, tachypneic and no tracheal deviation Auscultation: clear to auscultation bilaterally, no rales and no rhonchi Cardio Jugular venous pressure: no JVD Rate: tachycardic Heart Sounds: S1 normal, S2 normal, no gallops and no murmurs GI Inspection: normal to inspection Palpation: no hepatosplenomegaly, no guarding and nontender Extrem General: normal to inspection, no pedal edema and no calf tenderness Results Labs Result diagrams: 08/04/21 19:03 08/04/21 21:05 Labs: Laboratory Results - last 24 hr 08/04/21 08/04/21 08/04/21 19:03 19:03 19:03 WBC 24.20 H RBC 5.24 H Hgb 15.6 Hct 54.1 H MCV 103.2 H MCH 29.8 MCHC 28.8 L RDW 12.4 Plt Count 452 H MPV 11.1 H Immature Gran % See Differential Neutrophils % 76.0 Band Neutrophils % 9 Lymphocytes % 9.0 Monocytes % 3.0 Eosinophils % 0.0 Basophils % 0.0 Metamyelocytes % 3 Nucleated RBC % 0 Absolute Neutrophils 20.57 H Absolute Lymphocytes 2.18 Absolute Monocytes 0.73 Absolute Eosinophils 0.00 Absolute Basophils 0.00 RBC Morphology Normal VBG pH 6.78 L* VBG pCO2 19 L* VBG pO2 90 VBG HCO3 3 L VBG Total CO2 3 L VBG O2 Saturation 90 VBG Base Excess < -15 L Sodium 139 Potassium 5.6 H Chloride 103 Carbon Dioxide < 5.0 L* Anion Gap 31.84703 H BUN 17 Creatinine 1.3 H Estimated GFR/1.73 m2 51.71 Glucose 707 H* Calcium 8.6 Magnesium 2.9 H Total Bilirubin 0.4 AST 85 H ALT 36 Alkaline Phosphatase 166 H Troponin I < 50 Total Protein 8.8 H Albumin 3.8 TSH Free T4 Urine Color Urine Clarity Urine pH Ur Specific [place] Urine Protein Urine Ketones Urine Blood Urine Nitrite Urine Bilirubin Urine Urobilinogen Ur Leukocyte Esterase Urine RBC Urine WBC Ur Epithelial Cells Urine Crystals Urine Bacteria Urine Casts Urine Mucus Ur Culture Indicated? Urine Glucose COVID-19 Source SARS-CoV-2 (PCR) 08/04/21 08/04/21 08/04/21 19:03 19:17 19:17 WBC RBC Hgb Hct MCV MCH MCHC RDW Plt Count MPV Immature Gran % Neutrophils % Band Neutrophils % Lymphocytes % Monocytes % Eosinophils % Basophils % Metamyelocytes % Nucleated RBC % Absolute Neutrophils Absolute Lymphocytes Absolute Monocytes Absolute Eosinophils Absolute Basophils RBC Morphology VBG pH VBG pCO2 VBG pO2 VBG HCO3 VBG Total CO2 VBG O2 Saturation VBG Base Excess Sodium Potassium Chloride Carbon Dioxide Anion Gap BUN Creatinine Estimated GFR/1.73 m2 Glucose Calcium Magnesium Total Bilirubin AST ALT Alkaline Phosphatase Troponin I Total Protein Albumin TSH 0.18 L Free T4 1.10 Urine Color Yellow Urine Clarity Sl Cloudy Urine pH 5.0 Ur Specific [place] >= 1.030 H Urine Protein 100 H Urine Ketones >=160 H Urine Blood Trace-intact H Urine Nitrite Negative Urine Bilirubin Negative Urine Urobilinogen 0.2 Ur Leukocyte Esterase Negative Urine RBC 0-2 Urine WBC 3-5 Ur Epithelial Cells Few Urine Crystals Negative Urine Bacteria Moderate Urine Casts 3-5 Hyaline Urine Mucus Trace Ur Culture Indicated? Yes Urine Glucose 500 H COVID-19 Source Nasal/Nares SARS-CoV-2 (PCR) POSITIVE A* 08/04/21 08/04/21 08/04/21 20:00 21:05 21:05 WBC RBC Hgb Hct MCV MCH MCHC RDW Plt Count MPV Immature Gran % Neutrophils % Band Neutrophils % Lymphocytes % Monocytes % Eosinophils % Basophils % Metamyelocytes % Nucleated RBC % Absolute Neutrophils Absolute Lymphocytes Absolute Monocytes Absolute Eosinophils Absolute Basophils RBC Morphology VBG pH 6.83 L* VBG pCO2 26 L VBG pO2 69 VBG HCO3 4 L VBG Total CO2 5 L VBG O2 Saturation 86 VBG Base Excess < -15 L Sodium 145 148 H Potassium 6.2 H* 4.9 D Chloride 110 H 111 H Carbon Dioxide 5.9 L 6.4 L Anion Gap 29.1 H 30.6 H BUN 18 18 Creatinine 1.2 H 1.2 H Estimated GFR/1.73 m2 56.71 56.71 Glucose 618 H* 534 H* Calcium 7.2 L 7.5 L Magnesium Total Bilirubin AST ALT Alkaline Phosphatase Troponin I Total Protein Albumin TSH Free T4 Urine Color Urine Clarity Urine pH Ur Specific [place] Urine Protein Urine Ketones Urine Blood Urine Nitrite Urine Bilirubin Urine Urobilinogen Ur Leukocyte Esterase Urine RBC Urine WBC Ur Epithelial Cells Urine Crystals Urine Bacteria Urine Casts Urine Mucus Ur Culture Indicated? Urine Glucose COVID-19 Source SARS-CoV-2 (PCR) Last Vital Signs Temp 36.4 C L 08/04/21 18:58 Pulse 59 L 08/04/21 22:16 Resp 40 H 08/04/21 22:20 BP 162/70 H 08/04/21 22:16 Pulse Ox 99 08/04/21 21:40
--- NOTE | 2021-08-04 22:45 | DI.VRAD_ITS ---
PROCEDURE INFORMATION: Exam: XR Chest Exam date and time: 08/04/2021 9:05 PM Age: 20 years old Clinical indication: Other: +covid, dka TECHNIQUE: Imaging protocol: XR of the chest. Views: 1 view. COMPARISON: CR XR PORTABLE CHEST AP 09/15/2020 8:44 AM FINDINGS: Lungs: Lungs are adequately inflated and symmetric. No focal consolidation or pulmonary edema. Pleural spaces: No visible pleural effusion. No pneumothorax. Heart/Mediastinum: Cardiomediastinal contours within normal limits. Bones/joints: Elongated dextroconvex curvature of the thoracolumbar spine possibly accentuated by patient positioning, correlate with physical exam. No acute osseous finding. IMPRESSION: No acute cardiopulmonary finding. Dictated and Authenticated by: Moy Brandon MD. Ordering:AMARI Carrillo MD
[2021-08-04 23:43] LABS: Anion Gap 28.5 mmol/L (3-11); BUN 18 mg/dL (7-18); CO2 7.5 mmol/L (21.0-32.0); CREATININE 1.1 mg/dL (0.55-1.02); Calcium 7.6 mg/dL (8.5-10.1); Chloride 114 mmol/L (98-107); Glucose 451 mg/dL (74-106); Potassium 5.5 mmol/L (3.5-5.1); Sodium 150 mmol/L (136-145)
[2021-08-05] VITALS (38 sets, daily range): BP systolic 101–129; BP diastolic 52–75; PULSE 91–162; RESP 10–34; TEMP 36.4–37.4; O2SAT 97–100
[2021-08-05] MEDS: SODIUM CHLORIDE 0.45% 1,000 ML 150 ML IV (01:25)
[2021-08-05 01:28] LABS: HCO3 (Venous) 7 mmol/L (23-28); O2 Sat (Venous) 64 %; TCO2 (Venous) 7 mmol/L (24-29); pCO2 (Venous) 28 mmHg (41-51); pO2 (Venous) 35 mmHg
[2021-08-05 01:31] LABS: pH (Venous) 7.02 (7.31-7.41)
[2021-08-05 01:40] LABS: Anion Gap 27.1 mmol/L (3-11); BUN 17 mg/dL (7-18); CO2 7.9 mmol/L (21.0-32.0); CREATININE 0.9 mg/dL (0.55-1.02); Calcium 8.3 mg/dL (8.5-10.1); Chloride 116 mmol/L (98-107); Glucose 292 mg/dL (74-106); Potassium 4.9 mmol/L (3.5-5.1); Sodium 151 mmol/L (136-145)
[2021-08-05] MEDS: Enoxaparin 40 MG/0.4 ML SYR SC (02:00)
[2021-08-05] MEDS: DEXTROSE 5%-0.45% SALINE 1,000 ML 150 ML IV (02:45)
[2021-08-05 05:50] LABS: HCO3 (Venous) 9 mmol/L (23-28); O2 Sat (Venous) 91 %; TCO2 (Venous) 8 mmol/L (24-29); pCO2 (Venous) 22 mmHg (41-51); pO2 (Venous) 55 mmHg
[2021-08-05 05:52] LABS: Abs Immature Grans 0.81 10^3/uL (0.0-0.06); HCT 41.6 % (36.0-46.0); HGB 13.5 g/dL (11.2-15.7); MCH 30.3 pg (27.0-33.0); MCHC 32.5 % (32.0-36.0); MCV 93.3 fL (80-95); Nucleated RBC 0 %; Platelet Count 289 10^3/uL (130-400); RBC 4.46 10^6/uL (3.93-5.22); RDW 12.8 % (11.7-14.6); RDW-SD 43.4 fL; WBC 14.52 10^3/uL (4.4-10.8)
[2021-08-05 06:10] LABS: PHOSPHORUS < 2.0 mg/dL (2.6-4.7)
[2021-08-05 06:21] LABS: Anion Gap 21.3 mmol/L (3-11); BUN 12 mg/dL (7-18); C-Reactive Protein 1.24 mg/dL (0.0-0.3); CO2 10.7 mmol/L (21.0-32.0); CREATININE 0.8 mg/dL (0.55-1.02); Calcium 8.4 mg/dL (8.5-10.1); Chloride 116 mmol/L (98-107); Creatine Kinase 56 U/L (26-192); Glucose 183 mg/dL (74-106); NT-proBNP 1195 pg/mL (<300); Potassium 3.6 mmol/L (3.5-5.1); Sodium 148 mmol/L (136-145)
[2021-08-05 06:31] LABS: Absolute Neutrophil Count 11.18 10^3/uL (1.2-6.7); Bands % 7
[2021-08-05 06:32] LABS: Absolute Lymphocyte Count 2.03 10^3/uL (1.2-3.4); Absolute Monocyte Count 0.73 10^3/uL (0.1-0.8); Diff Comment Manual Differential; Metamyelocytes % 2; Myelocytes % 2; RBC Morphology Normal
[2021-08-05 06:40] LABS: D-Dimer 1068 ng/mlFEU (<500)
[2021-08-05] MEDS: POTASSIUM CHLORIDE/D5-0.45NACL 1,000 ML 150 MEQ IV ×3 (06:43→19:28)
[2021-08-05 06:49] LABS: Ferritin 286 ng/mL (8-252)
[2021-08-05] MEDS: Normal Saline Flush 10 ML SYR IVP (08:23)
[2021-08-05 09:16] LABS: Anion Gap 19.5 mmol/L (3-11); BUN 12 mg/dL (7-18); CO2 14.5 mmol/L (21.0-32.0); CREATININE 0.9 mg/dL (0.55-1.02); Calcium 8.3 mg/dL (8.5-10.1); Chloride 114 mmol/L (98-107); Glucose 140 mg/dL (74-106); Potassium 3.4 mmol/L (3.5-5.1); Sodium 148 mmol/L (136-145)
--- NOTE | 2021-08-05 09:35 | INITIAL_ITS ---
- If Service Date Differs Date of service: 08/05/21 Time of Service: 09:35 Care Management Initial Assess REASON FOR HOSPITALIZATION:: DKA PAST MEDICAL HISTORY/PAST SURGICAL HISTORY:: All Active Problems (Updated 08/04/21 @ 22:32 by Vjiay Riggs MD). COVID (Acute). Abscess of vulva (Acute). DKA (diabetic ketoacidoses) (Acute). Nausea and vomiting (Acute). Type 1 diabetes mellitus (Chronic). [facility] Endo; h/o hospitalizations for DKA. Crohn's disease (Chronic). Elevated blood pressure affecting in third trimester, antepartum (Acute). Surgical History . Colonoscopy - MAC (03/06/17) PREVIOUS FUNCTIONAL STATUS/SOCIAL/FAMILY SUPPORTS:: Monica resides in [place], [place] with her nenita and their 15 month old daughter. 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 Monica is independent at baseline in the community. CURRENT FUNCTIONAL STATUS:: CM was unable to meet with Monica in person as she is on isolation for Covid, but was able to converse with her via telephone. Monica indicated that she is feeling better and that she has no symptoms from Covid. She informed CM that she her tushar and daughter are being tested today. Monica shared that she is out of [employer] for her meter and has been for some time. She tests her blood sugars manually but stated that she had much better control when using the CGM. JR learned that Monica never went for her follow up appointment with her new PCP, Hetal Leon, that was scheduled after her last hospital stay. In checking with her pharmacy, her insurance does cover at 100% so that is not a barrier. CM will discuss the importance of establishing with a PCP to enable Monica to continue to receive the medications and suppplies that she needs. Until then, the provider will be asked to order the cartridges at discharge so that Monica can resume using her Freestyle Leyla 2 CGM. ADVANCE DIRECTIVES:: none on file Has patient been provided with info about the portal/API?: Yes Did the patient sign up for the portal?: No CODE STATUS:: Full Code INSURANCE COVERAGE / FINANCIAL ISSUES:: [employer] CURRENT HOME/COMMUNITY SERVICES/EQUIPMENT:: none PRIMARY CARE PHYSICIAN:: Hetal Leon POTENTIAL DISCHARGE NEEDS:: Follow up with PCP and plan of care PATIENT/FAMILY EDUCATION NEEDS:: Review of discharge instructions, limitations, follow up plan, medications, Ask Me Three TRANSPORTATION:: via private vehicle with boyfriend PLAN:: Monica will likely be discharged home with no new services. She will follow up with her PCP and plan of care and transport with family.CM will continue to support Monica and her discharge needs.
[2021-08-05 10:50] LABS: Anion Gap 17.4 mmol/L (3-11); BUN 10 mg/dL (7-18); CO2 13.6 mmol/L (21.0-32.0); CREATININE 0.8 mg/dL (0.55-1.02); Calcium 8.1 mg/dL (8.5-10.1); Chloride 113 mmol/L (98-107); Glucose 117 mg/dL (74-106); Potassium 3.4 mmol/L (3.5-5.1); Sodium 144 mmol/L (136-145)
[2021-08-05] MEDS: POTASSIUM CHLORIDE 20 MEQ/100 ML BAG 50 MEQ IVPB (10:54)
[2021-08-05] MEDS: INSULIN REGULAR IN 0.9 % NACL 100 UNIT/100 ML BAG 6.3 UNIT IV (11:54)
[2021-08-05 12:47] LABS: Anion Gap 16.5 mmol/L (3-11); BUN 10 mg/dL (7-18); CO2 16.5 mmol/L (21.0-32.0); CREATININE 0.8 mg/dL (0.55-1.02); Calcium 8.3 mg/dL (8.5-10.1); Chloride 113 mmol/L (98-107); Glucose 87 mg/dL (74-106); Potassium 3.6 mmol/L (3.5-5.1); Sodium 146 mmol/L (136-145)
--- NOTE | 2021-08-05 13:12 | W.PM.PROGNOT ---
Date of Service Date of service: 08/05/21 Time of Service: 13:12 Assessment and Plan Assessment and plan (1) DKA (diabetic ketoacidoses): Status: Acute Assessment and plan: patient is still in DKA although she is improved. continue iv fluids w/ potassium supplementation and insulin drip until her AG is resolved then put her back on basal/bolus insulin w/ CHO coverage. She needs twice a day dosing of her Levemir rather than once a day. I explained this to her. Levemir is not as long acting as Lantus. Qualifiers: Diabetes mellitus type: type 1 Diabetes mellitus complication detail: without coma Qualified Code(s): E10.10 - Type 1 diabetes mellitus with ketoacidosis without coma (2) Type 1 diabetes mellitus: Status: Chronic Assessment and plan: as above. Qualifiers: Diabetes mellitus complication status: with hyperglycemia Qualified Code(s): E10.65 - Type 1 diabetes mellitus with hyperglycemia (3) COVID: Status: Acute Assessment and plan: I discussed her case w/ Jyotsna from pharmacy and we discussed givng the patient MAB however the current product we are using has not been shown to retain effectiveness against the Omicron strain. We are using the Regeneron. However, Jyotsna has researched the latest findings from [facility] and it seems that Remdesivir does retain activity agains Omicron (based on recent studies out of [facility]). Therefore we will give her Remdesivir and apparently the FDA has approved a 3 day outpatient infusion. We will start w/ 200 mg tonight and give her 100 mg tomorrow. If she goes home tomorrow then two doses may be adequate to protect her from severe disease. Subjective Subjective Interval history since last seen: Patient is type I diabetic who usually uses Levemir 22 units QHS and CHO coverage 1:15 ration along w/ corrective scale (glucose-120/40). Patient developed cold like symptoms couple days ago (runny nose, sneezing) but no fever or rigors nor any dyspnea or cough. She has been nauseated and poor oral intake for past day and her glucose levels were running high (higher than her machine would register). On admission she had an anion gap of greater than 31 with a carbon dioxide level less than 5 and a blood glucose of 707. Blood gas showed a pH of 6.78. Patient was given IV fluids and put on insulin drip. She remains in DKA although she is feeling better and hoping to go home tomorrow. She has a 15 month old child and at home. They both got tested today and she is awaiting their results. She indicated that if they are negative, she plans to isolate herself from them when she returns home until she can come out of quarrantine. We briefly discussed vaccination which she did not want to discuss. She has reservations about the vaccine and still had the view that COVID-19 was more like the flu even though I pointed out to her the magnitude that COVID has had around the world in terms of and disability. she asked about getting the monoclonal antibodies. i told that I would check w/ current guidelines for treatment since she really was not admitted for the COVID-19 but was admitted for DKA (although her sx of a cold was probably the beginning of her COVID illness and probably brought out the DKA. Exam Narrative Exam Narrative: Pleasant, young female sitting up in bed working w/ her phone. She is in no acute respiratory distress. Lungs: clear Heart: RRR Abdomen: soft, nontender, nondistended Extremities: no open sores. Objective Last Vital Signs Temp 37.4 C 08/05/21 11:30 Pulse 98 H 08/05/21 11:03 Resp 16 08/05/21 11:03 BP 103/59 L 08/05/21 11:03 Pulse Ox 98 08/05/21 11:30 Laboratory Results - last 24 hr 08/04/21 08/04/21 08/04/21 19:03 19:03 19:03 WBC 24.20 H RBC 5.24 H Hgb 15.6 Hct 54.1 H MCV 103.2 H MCH 29.8 MCHC 28.8 L RDW 12.4 Plt Count 452 H MPV 11.1 H Immature Gran % See Differential Neutrophils % 76.0 Band Neutrophils % 9 Lymphocytes % 9.0 Monocytes % 3.0 Eosinophils % 0.0 Basophils % 0.0 Metamyelocytes % 3 Myelocytes % Nucleated RBC % 0 Absolute Neutrophils 20.57 H Absolute Lymphocytes 2.18 Absolute Monocytes 0.73 Absolute Eosinophils 0.00 Absolute Basophils 0.00 RBC Morphology Normal D-Dimer VBG pH 6.78 L* VBG pCO2 19 L* VBG pO2 90 VBG HCO3 3 L VBG Total CO2 3 L VBG O2 Saturation 90 VBG Base Excess < -15 L Sodium 139 Potassium 5.6 H Chloride 103 Carbon Dioxide < 5.0 L* Anion Gap 31.07798 H BUN 17 Creatinine 1.3 H Estimated GFR/1.73 m2 51.71 Glucose 707 H* Calcium 8.6 Phosphorus Magnesium 2.9 H Ferritin Total Bilirubin 0.4 AST 85 H ALT 36 Alkaline Phosphatase 166 H Creatine Kinase Troponin I < 50 C-Reactive Protein NT-Pro-B Natriuret Pep Total Protein 8.8 H Albumin 3.8 TSH Free T4 Urine Color Urine Clarity Urine pH Ur Specific [place] Urine Protein Urine Ketones Urine Blood Urine Nitrite Urine Bilirubin Urine Urobilinogen Ur Leukocyte Esterase Urine RBC Urine WBC Ur Epithelial Cells Urine Crystals Urine Bacteria Urine Casts Urine Mucus Ur Culture Indicated? Urine Glucose COVID-19 Source SARS-CoV-2 (PCR) 08/04/21 08/04/21 08/04/21 19:03 19:17 19:17 WBC RBC Hgb Hct MCV MCH MCHC RDW Plt Count MPV Immature Gran % Neutrophils % Band Neutrophils % Lymphocytes % Monocytes % Eosinophils % Basophils % Metamyelocytes % Myelocytes % Nucleated RBC % Absolute Neutrophils Absolute Lymphocytes Absolute Monocytes Absolute Eosinophils Absolute Basophils RBC Morphology D-Dimer VBG pH VBG pCO2 VBG pO2 VBG HCO3 VBG Total CO2 VBG O2 Saturation VBG Base Excess Sodium Potassium Chloride Carbon Dioxide Anion Gap BUN Creatinine Estimated GFR/1.73 m2 Glucose Calcium Phosphorus Magnesium Ferritin Total Bilirubin AST ALT Alkaline Phosphatase Creatine Kinase Troponin I C-Reactive Protein NT-Pro-B Natriuret Pep Total Protein Albumin TSH 0.18 L Free T4 1.10 Urine Color Yellow Urine Clarity Sl Cloudy Urine pH 5.0 Ur Specific [place] >= 1.030 H Urine Protein 100 H Urine Ketones >=160 H Urine Blood Trace-intact H Urine Nitrite Negative Urine Bilirubin Negative Urine Urobilinogen 0.2 Ur Leukocyte Esterase Negative Urine RBC 0-2 Urine WBC 3-5 Ur Epithelial Cells Few Urine Crystals Negative Urine Bacteria Moderate Urine Casts 3-5 Hyaline Urine Mucus Trace Ur Culture Indicated? Yes Urine Glucose 500 H COVID-19 Source Nasal/Nares SARS-CoV-2 (PCR) POSITIVE A* 08/04/21 08/04/21 08/04/21 20:00 21:05 21:05 WBC RBC Hgb Hct MCV MCH MCHC RDW Plt Count MPV Immature Gran % Neutrophils % Band Neutrophils % Lymphocytes % Monocytes % Eosinophils % Basophils % Metamyelocytes % Myelocytes % Nucleated RBC % Absolute Neutrophils Absolute Lymphocytes Absolute Monocytes Absolute Eosinophils Absolute Basophils RBC Morphology D-Dimer VBG pH 6.83 L* VBG pCO2 26 L VBG pO2 69 VBG HCO3 4 L VBG Total CO2 5 L VBG O2 Saturation 86 VBG Base Excess < -15 L Sodium 145 148 H Potassium 6.2 H* 4.9 D Chloride 110 H 111 H Carbon Dioxide 5.9 L 6.4 L Anion Gap 29.1 H 30.6 H BUN 18 18 Creatinine 1.2 H 1.2 H Estimated GFR/1.73 m2 56.71 56.71 Glucose 618 H* 534 H* Calcium 7.2 L 7.5 L Phosphorus Magnesium Ferritin Total Bilirubin AST ALT Alkaline Phosphatase Creatine Kinase Troponin I C-Reactive Protein NT-Pro-B Natriuret Pep Total Protein Albumin TSH Free T4 Urine Color Urine Clarity Urine pH Ur Specific [place] Urine Protein Urine Ketones Urine Blood Urine Nitrite Urine Bilirubin Urine Urobilinogen Ur Leukocyte Esterase Urine RBC Urine WBC Ur Epithelial Cells Urine Crystals Urine Bacteria Urine Casts Urine Mucus Ur Culture Indicated? Urine Glucose COVID-19 Source SARS-CoV-2 (PCR) 08/04/21 08/05/21 08/05/21 23:17 01:18 01:18 WBC RBC Hgb Hct MCV MCH MCHC RDW Plt Count MPV Immature Gran % Neutrophils % Band Neutrophils % Lymphocytes % Monocytes % Eosinophils % Basophils % Metamyelocytes % Myelocytes % Nucleated RBC % Absolute Neutrophils Absolute Lymphocytes Absolute Monocytes Absolute Eosinophils Absolute Basophils RBC Morphology D-Dimer VBG pH 7.02 L* VBG pCO2 28 L VBG pO2 35 VBG HCO3 7 L VBG Total CO2 7 L VBG O2 Saturation 64 VBG Base Excess < -15 L Sodium 150 H 151 H Potassium 5.5 H 4.9 Chloride 114 H 116 H Carbon Dioxide 7.5 L 7.9 L Anion Gap 28.5 H 27.1 H BUN 18 17 Creatinine 1.1 H 0.9 Estimated GFR/1.73 m2 >= 60.00 >= 60.00 Glucose 451 H 292 H D Calcium 7.6 L 8.3 L Phosphorus Magnesium Ferritin Total Bilirubin AST ALT Alkaline Phosphatase Creatine Kinase Troponin I C-Reactive Protein NT-Pro-B Natriuret Pep Total Protein Albumin TSH Free T4 Urine Color Urine Clarity Urine pH Ur Specific [place] Urine Protein Urine Ketones Urine Blood Urine Nitrite Urine Bilirubin Urine Urobilinogen Ur Leukocyte Esterase Urine RBC Urine WBC Ur Epithelial Cells Urine Crystals Urine Bacteria Urine Casts Urine Mucus Ur Culture Indicated? Urine Glucose COVID-19 Source SARS-CoV-2 (PCR) 08/05/21 08/05/21 08/05/21 05:32 05:32 05:32 WBC 14.52 H D RBC 4.46 Hgb 13.5 D Hct 41.6 D MCV 93.3 D MCH 30.3 MCHC 32.5 RDW 12.8 Plt Count 289 D MPV 10.0 Immature Gran % See Differential Neutrophils % 70.0 Band Neutrophils % 7 Lymphocytes % 14.0 Monocytes % 5.0 Eosinophils % 0.0 Basophils % 0.0 Metamyelocytes % 2 Myelocytes % 2 Nucleated RBC % 0 Absolute Neutrophils 11.18 H Absolute Lymphocytes 2.03 Absolute Monocytes 0.73 Absolute Eosinophils 0.00 Absolute Basophils 0.00 RBC Morphology Normal D-Dimer VBG pH VBG pCO2 VBG pO2 VBG HCO3 VBG Total CO2 VBG O2 Saturation VBG Base Excess Sodium 148 H Potassium 3.6 D Chloride 116 H Carbon Dioxide 10.7 L Anion Gap 21.3 H BUN 12 Creatinine 0.8 Estimated GFR/1.73 m2 >= 60.00 Glucose 183 H D Calcium 8.4 L Phosphorus < 2.0 L Magnesium 2.0 Ferritin 286 H Total Bilirubin AST ALT Alkaline Phosphatase Creatine Kinase 56 Troponin I C-Reactive Protein 1.24 H NT-Pro-B Natriuret Pep 1195 H Total Protein Albumin TSH Free T4 Urine Color Urine Clarity Urine pH Ur Specific [place] Urine Protein Urine Ketones Urine Blood Urine Nitrite Urine Bilirubin Urine Urobilinogen Ur Leukocyte Esterase Urine RBC Urine WBC Ur Epithelial Cells Urine Crystals Urine Bacteria Urine Casts Urine Mucus Ur Culture Indicated? Urine Glucose COVID-19 Source SARS-CoV-2 (PCR) 08/05/21 08/05/21 08/05/21 05:32 05:32 07:30 WBC RBC Hgb Hct MCV MCH MCHC RDW Plt Count MPV Immature Gran % Neutrophils % Band Neutrophils % Lymphocytes % Monocytes % Eosinophils % Basophils % Metamyelocytes % Myelocytes % Nucleated RBC % Absolute Neutrophils Absolute Lymphocytes Absolute Monocytes Absolute Eosinophils Absolute Basophils RBC Morphology D-Dimer 1068 H VBG pH 7.20 L VBG pCO2 22 L VBG pO2 55 VBG HCO3 9 L VBG Total CO2 8 L VBG O2 Saturation 91 VBG Base Excess < -15 L Sodium Cancelled Potassium Cancelled Chloride Cancelled Carbon Dioxide Cancelled Anion Gap Cancelled BUN Cancelled Creatinine Cancelled Estimated GFR/1.73 m2 Cancelled Glucose Cancelled Calcium Cancelled Phosphorus Magnesium Ferritin Total Bilirubin AST ALT Alkaline Phosphatase Creatine Kinase Troponin I C-Reactive Protein NT-Pro-B Natriuret Pep Total Protein Albumin TSH Free T4 Urine Color Urine Clarity Urine pH Ur Specific [place] Urine Protein Urine Ketones Urine Blood Urine Nitrite Urine Bilirubin Urine Urobilinogen Ur Leukocyte Esterase Urine RBC Urine WBC Ur Epithelial Cells Urine Crystals Urine Bacteria Urine Casts Urine Mucus Ur Culture Indicated? Urine Glucose COVID-19 Source SARS-CoV-2 (PCR) 08/05/21 08/05/21 08/05/21 08:50 09:30 10:30 WBC RBC Hgb Hct MCV MCH MCHC RDW Plt Count MPV Immature Gran % Neutrophils % Band Neutrophils % Lymphocytes % Monocytes % Eosinophils % Basophils % Metamyelocytes % Myelocytes % Nucleated RBC % Absolute Neutrophils Absolute Lymphocytes Absolute Monocytes Absolute Eosinophils Absolute Basophils RBC Morphology D-Dimer VBG pH VBG pCO2 VBG pO2 VBG HCO3 VBG Total CO2 VBG O2 Saturation VBG Base Excess Sodium 148 H Cancelled 144 Potassium 3.4 L Cancelled 3.4 L Chloride 114 H Cancelled 113 H Carbon Dioxide 14.5 L Cancelled 13.6 L Anion Gap 19.5 H Cancelled 17.4 H BUN 12 Cancelled 10 Creatinine 0.9 Cancelled 0.8 Estimated GFR/1.73 m2 >= 60.00 Cancelled >= 60.00 Glucose 140 H Cancelled 117 H Calcium 8.3 L Cancelled 8.1 L Phosphorus Magnesium Ferritin Total Bilirubin AST ALT Alkaline Phosphatase Creatine Kinase Troponin I C-Reactive Protein NT-Pro-B Natriuret Pep Total Protein Albumin TSH Free T4 Urine Color Urine Clarity Urine pH Ur Specific [place] Urine Protein Urine Ketones Urine Blood Urine Nitrite Urine Bilirubin Urine Urobilinogen Ur Leukocyte Esterase Urine RBC Urine WBC Ur Epithelial Cells Urine Crystals Urine Bacteria Urine Casts Urine Mucus Ur Culture Indicated? Urine Glucose COVID-19 Source SARS-CoV-2 (PCR) 08/05/21 08/05/21 08/05/21 11:30 12:15 13:30 WBC RBC Hgb Hct MCV MCH MCHC RDW Plt Count MPV Immature Gran % Neutrophils % Band Neutrophils % Lymphocytes % Monocytes % Eosinophils % Basophils % Metamyelocytes % Myelocytes % Nucleated RBC % Absolute Neutrophils Absolute Lymphocytes Absolute Monocytes Absolute Eosinophils Absolute Basophils RBC Morphology D-Dimer VBG pH VBG pCO2 VBG pO2 VBG HCO3 VBG Total CO2 VBG O2 Saturation VBG Base Excess Sodium Cancelled 146 H Cancelled Potassium Cancelled 3.6 Cancelled Chloride Cancelled 113 H Cancelled Carbon Dioxide Cancelled 16.5 L Cancelled Anion Gap Cancelled 16.5 H Cancelled BUN Cancelled 10 Cancelled Creatinine Cancelled 0.8 Cancelled Estimated GFR/1.73 m2 Cancelled >= 60.00 Cancelled Glucose Cancelled 87 Cancelled Calcium Cancelled 8.3 L Cancelled Phosphorus Magnesium Ferritin Total Bilirubin AST ALT Alkaline Phosphatase Creatine Kinase Troponin I C-Reactive Protein NT-Pro-B Natriuret Pep Total Protein Albumin TSH Free T4 Urine Color Urine Clarity Urine pH Ur Specific [place] Urine Protein Urine Ketones Urine Blood Urine Nitrite Urine Bilirubin Urine Urobilinogen Ur Leukocyte Esterase Urine RBC Urine WBC Ur Epithelial Cells Urine Crystals Urine Bacteria Urine Casts Urine Mucus Ur Culture Indicated? Urine Glucose COVID-19 Source SARS-CoV-2 (PCR) 08/05/21 08/05/21 15:30 17:30 WBC RBC Hgb Hct MCV MCH MCHC RDW Plt Count MPV Immature Gran % Neutrophils % Band Neutrophils % Lymphocytes % Monocytes % Eosinophils % Basophils % Metamyelocytes % Myelocytes % Nucleated RBC % Absolute Neutrophils Absolute Lymphocytes Absolute Monocytes Absolute Eosinophils Absolute Basophils RBC Morphology D-Dimer VBG pH VBG pCO2 VBG pO2 VBG HCO3 VBG Total CO2 VBG O2 Saturation VBG Base Excess Sodium Cancelled Cancelled Potassium Cancelled Cancelled Chloride Cancelled Cancelled Carbon Dioxide Cancelled Cancelled Anion Gap Cancelled Cancelled BUN Cancelled Cancelled Creatinine Cancelled Cancelled Estimated GFR/1.73 m2 Cancelled Cancelled Glucose Cancelled Cancelled Calcium Cancelled Cancelled Phosphorus Magnesium Ferritin Total Bilirubin AST ALT Alkaline Phosphatase Creatine Kinase Troponin I C-Reactive Protein NT-Pro-B Natriuret Pep Total Protein Albumin TSH Free T4 Urine Color Urine Clarity Urine pH Ur Specific [place] Urine Protein Urine Ketones Urine Blood Urine Nitrite Urine Bilirubin Urine Urobilinogen Ur Leukocyte Esterase Urine RBC Urine WBC Ur Epithelial Cells Urine Crystals Urine Bacteria Urine Casts Urine Mucus Ur Culture Indicated? Urine Glucose COVID-19 Source SARS-CoV-2 (PCR)
[2021-08-05] MEDS: Potassium Chloride 10 MEQ CAPCR 40 MEQ PO (14:03)
[2021-08-05 15:16] LABS: Anion Gap 17.7 mmol/L (3-11); BUN 8 mg/dL (7-18); CO2 15.3 mmol/L (21.0-32.0); CREATININE 0.8 mg/dL (0.55-1.02); Calcium 8.1 mg/dL (8.5-10.1); Chloride 108 mmol/L (98-107); Glucose 114 mg/dL (74-106); Potassium 3.4 mmol/L (3.5-5.1); Sodium 141 mmol/L (136-145)
[2021-08-05] MEDS: Potassium Chloride 10 MEQ CAPCR 20 MEQ PO (18:11)
[2021-08-05 18:19] LABS: Anion Gap 17.2 mmol/L (3-11); BUN 7 mg/dL (7-18); CO2 12.8 mmol/L (21.0-32.0); CREATININE 0.7 mg/dL (0.55-1.02); Calcium 8.6 mg/dL (8.5-10.1); Chloride 110 mmol/L (98-107); Glucose 117 mg/dL (74-106); Sodium 140 mmol/L (136-145)
[2021-08-05 18:23] LABS: Potassium 4.5 mmol/L (3.5-5.1)
[2021-08-05] MEDS: REMDESIVIR 200 MG in Normal Saline 250 ML 250 MG IVPB (19:09)
[2021-08-05 23:29] LABS: Anion Gap 15.6 mmol/L (3-11); BUN 4 mg/dL (7-18); CO2 15.4 mmol/L (21.0-32.0); CREATININE 0.8 mg/dL (0.55-1.02); Calcium 8.6 mg/dL (8.5-10.1); Chloride 109 mmol/L (98-107); Glucose 138 mg/dL (74-106); Sodium 140 mmol/L (136-145)
[2021-08-06] VITALS (8 sets, daily range): BP systolic 110–130; BP diastolic 74–94; PULSE 96–103; RESP 11–21; TEMP 36.7–37.5; O2SAT 97–98
[2021-08-06] MEDS: Enoxaparin 40 MG/0.4 ML SYR SC (00:06)
[2021-08-06] MEDS: POTASSIUM CHLORIDE/D5-0.45NACL 1,000 ML 150 MEQ IV ×2 (02:10→08:03)
[2021-08-06 03:40] LABS: Anion Gap 13.2 mmol/L (3-11); BUN 4 mg/dL (7-18); CO2 17.8 mmol/L (21.0-32.0); CREATININE 0.6 mg/dL (0.55-1.02); Calcium 8.5 mg/dL (8.5-10.1); Chloride 109 mmol/L (98-107); Glucose 103 mg/dL (74-106); Sodium 140 mmol/L (136-145)
[2021-08-06 07:10] LABS: Abs Immature Grans 0.14 10^3/uL (0.0-0.06); Absolute Basophil Count 0.05 10^3/uL (0.0-0.2); Absolute Eosinophil Count 0.01 10^3/uL (0.0-0.7); Absolute Lymphocyte Count 1.26 10^3/uL (1.2-3.4); Absolute Monocyte Count 0.53 10^3/uL (0.1-0.8); Absolute Neutrophil Count 5.35 10^3/uL (1.2-6.7); Basophils % 0.7; Eosinophils % 0.1; HCT 39.8 % (36.0-46.0); Immature Grans % 1.9; Lymphocytes % 17.2; MCH 29.7 pg (27.0-33.0); MCHC 32.7 % (32.0-36.0); MCV 90.9 fL (80-95); MPV 9.8 fL (8.0-11.0); Monocytes % 7.2; Neutrophils % 72.9; Nucleated RBC 0 %; Platelet Count 247 10^3/uL (130-400); RBC 4.38 10^6/uL (3.93-5.22); RDW-SD 42.8 fL; WBC 7.34 10^3/uL (4.4-10.8)
[2021-08-06 07:28] LABS: Anion Gap 12.5 mmol/L (3-11); BUN 3 mg/dL (7-18); CO2 19.5 mmol/L (21.0-32.0); CREATININE 0.7 mg/dL (0.55-1.02); Calcium 8.4 mg/dL (8.5-10.1); Chloride 109 mmol/L (98-107); Glucose 110 mg/dL (74-106); Potassium 3.9 mmol/L (3.5-5.1); Sodium 141 mmol/L (136-145)
[2021-08-06] MEDS: Potassium Chloride 10 MEQ CAPCR 20 MEQ PO ×2 (08:03→11:55)
--- NOTE | 2021-08-06 08:25 | W.PM.PROGNOT ---
Subjective Subjective Interval history since last seen: On insulin gtt at 2 units/hr. AG closed. BGs in 80s-110s. Did switch to tresiba at night (22 units; thinks even that is too much sometimes). Objective Last Vital Signs Temp 36.7 C 08/06/21 05:30 Pulse 98 H 08/06/21 01:36 Resp 17 08/06/21 01:36 BP 118/74 08/06/21 01:36 Pulse Ox 97 08/05/21 19:27 Laboratory Results - last 24 hr 08/05/21 08/05/21 08/05/21 08:50 10:30 12:15 WBC RBC Hgb Hct MCV MCH MCHC RDW Plt Count MPV Immature Gran % Neutrophils % Lymphocytes % Monocytes % Eosinophils % Basophils % Nucleated RBC % Absolute Neutrophils Absolute Lymphocytes Absolute Monocytes Absolute Eosinophils Absolute Basophils Sodium 148 H 144 146 H Potassium 3.4 L 3.4 L 3.6 Chloride 114 H 113 H 113 H Carbon Dioxide 14.5 L 13.6 L 16.5 L Anion Gap 19.5 H 17.4 H 16.5 H BUN 12 10 10 Creatinine 0.9 0.8 0.8 Estimated GFR/1.73 m2 >= 60.00 >= 60.00 >= 60.00 Glucose 140 H 117 H 87 Calcium 8.3 L 8.1 L 8.3 L 08/05/21 08/05/21 08/05/21 15:00 17:40 18:21 WBC RBC Hgb Hct MCV MCH MCHC RDW Plt Count MPV Immature Gran % Neutrophils % Lymphocytes % Monocytes % Eosinophils % Basophils % Nucleated RBC % Absolute Neutrophils Absolute Lymphocytes Absolute Monocytes Absolute Eosinophils Absolute Basophils Sodium 141 140 Cancelled Potassium 3.4 L 4.5 D Cancelled Chloride 108 H 110 H Cancelled Carbon Dioxide 15.3 L 12.8 L Cancelled Anion Gap 17.7 H 17.2 H Cancelled BUN 8 7 Cancelled Creatinine 0.8 0.7 Cancelled Estimated GFR/1.73 m2 >= 60.00 >= 60.00 Cancelled Glucose 114 H 117 H Cancelled Calcium 8.1 L 8.6 Cancelled 08/05/21 08/06/21 08/06/21 23:00 03:15 06:50 WBC RBC Hgb Hct MCV MCH MCHC RDW Plt Count MPV Immature Gran % Neutrophils % Lymphocytes % Monocytes % Eosinophils % Basophils % Nucleated RBC % Absolute Neutrophils Absolute Lymphocytes Absolute Monocytes Absolute Eosinophils Absolute Basophils Sodium 140 140 141 Potassium 4.0 4.0 3.9 Chloride 109 H 109 H 109 H Carbon Dioxide 15.4 L 17.8 L 19.5 L Anion Gap 15.6 H 13.2 H 12.5 H BUN 4 L 4 L 3 L Creatinine 0.8 0.6 0.7 Estimated GFR/1.73 m2 >= 60.00 >= 60.00 >= 60.00 Glucose 138 H 103 110 H Calcium 8.6 8.5 8.4 L 08/06/21 06:50 WBC 7.34 D RBC 4.38 Hgb 13.0 Hct 39.8 MCV 90.9 MCH 29.7 MCHC 32.7 RDW 13.0 Plt Count 247 MPV 9.8 Immature Gran % 1.9 Neutrophils % 72.9 Lymphocytes % 17.2 Monocytes % 7.2 Eosinophils % 0.1 Basophils % 0.7 Nucleated RBC % 0 Absolute Neutrophils 5.35 Absolute Lymphocytes 1.26 Absolute Monocytes 0.53 Absolute Eosinophils 0.01 Absolute Basophils 0.05 Sodium Potassium Chloride Carbon Dioxide Anion Gap BUN Creatinine Estimated GFR/1.73 m2 Glucose Calcium
--- NOTE | 2021-08-06 10:25 | NUR.NOTE ---
RN delivers fresh prince to patient. Patient feeling well.Nursing Note:
[2021-08-06 10:45] LABS: Hemoglobin A1C 12.7 % (<5.7)
--- NOTE | 2021-08-06 11:14 | NUR.NOTE ---
MD instructs RN to check with [employer]rel Inspector to see if patient could receive a third dose of Remdesevir tomorrow at 14:00 on Med/Surg. MD would discharge patient today after her 14:00 dose of Remdesivir if arrangements could be made to have patient come back tomorrow to get her Remdesivir dose. RN speaks to electrician constructor supervisor who will get back to RN. Nursing Note:
--- NOTE | 2021-08-06 11:42 | NUR.NOTE ---
Nursing Note: RN orders a grilled cheese sandwich with pickles for patient.
--- NOTE | 2021-08-06 11:52 | W.PM.DS.N ---
Date of service: 08/06/21 Time of Service: 14:00 DS: Diagnosis Discharge Diagnosis (1) DKA (diabetic ketoacidoses): Status: Acute (2) COVID-19: Status: Acute (3) Noncompliance with medication regimen: Status: Chronic (4) Type 1 diabetes mellitus: (5) Hypokalemia: Status: Resolved (6) Hypophosphatemia: Status: Acute (7) Hypomagnesemia: Status: Acute Discharge Plan Disposition Patient Disposition: HOME Condition: Improving Discharge Details Reason For Visit: DKA,Covid Positive Admit Date/Time: 08/04/21 22:14 Admit Provider: Vijay Riggs Attending Provider: Vijay Rgigs Primary Care Provider: Unknown,Unknown Hospital Course Hospital Course: Ms Dutta is a 20 year old female with PMHx of T1DM on basal bolus insulin as well as h/o noncompliance, gastroparesis, Crohn's disease, who was a patient on [facility] hospitalist service from 08/04/21 until 08/06/21 for DKA. She was found to be positive for COVID-19 with minimal symptoms thereof and no evidence of pneumonia or hypoxia. The patient was treated with insulin infusion, IVF, electrolyte repletion and received long acting insulin once her anion gap had closed two hours prior to discontinuation of insulin drip. The patient states that she did not know that she was supposed to take 36 units of tresiba. She states that she was staking 22 units of tresiba once a day at night. We discussed that this is not enough. She stated that taking 36 units would have bottomed her out. I reviewed with her the instructions that were described in her endocrinology note from 09/2020 at [facility], where she was recommended to increase her long acting insulin by 1 unit every two days if her blood sugars were above 150. Tresiba was brought to our facility, and the patient received 25 minutes on the day of her discharge. She is being discharged on 25 units of tresiba daily in am with above instructions. I ensured that there were refills on her Leyla 2 CGM. The patient is interested in getting transitioned to Dexcom, for which I referred her back to [facility] endocrinology as well as to our diabetes education. She received two days of remdesivir in our facility and will need one more dose tomorrow based on the latest NIH guidelines. This will be done tomorrow as outpatient at our facility. The patient will need to present to the main access desk (ER) at 2 pm for her dose of remdesivir tomorrow at which point it will be determined by nursing burling and joining supervisor whether it will happen in the ER, the procedure room, or on the medical surgical floor. Total Critical Care Time on day of discharge 60 minutes. Home Meds and New Rx's Prescriptions: Continued (DME) pen needle, diabetic [BD Ultra-Fine Gissel Pen Needle] 32 gauge x 5/32 needle 1 device miscellaneous DIRECTED Qty: 100 RF: 0 (DME) pen needle, diabetic [BD Ultra-Fine Gissel Pen Needle] 32 gauge x 5/32 needle See Rx Instructions .ROUTE .COMPLEX Qty: 100 RF: 0 (DME) FreeStyle Leyla 2 [place] Misc See Rx Instructions .ROUTE .MEDSUPPLY Qty: 1 RF: 0 insulin lispro [Humalog KwikPen Insulin] 100 unit/mL insulin pen 1 - 30 unit SC .AC (4-5 times daily) MDD 150 units Qty: 45 RF: 0 Changed (DME) FreeStyle Leyla 14 Day Sensor Kit See Rx Instructions .ROUTE .MEDSUPPLY Qty: 6 RF: 3 Tresiba FlexTouch U-100 100 unit/mL (3 mL) insulin pen 25 unit SUBCUT QAM Qty: 15 RF: 3 Discharge Instructions Instructions: Insulin Degludec (By injection), Diabetic Ketoacidosis (DC), COVID-19 (Coronavirus Disease 2019) (DC) Additional Instructions: Return to the hospital with any fever, bleeding, chest pain, or shortness of breath. Take 25 units of tresiba every morning. Increase your tresiba dose by 1 unit if your fasting blood sugar is greater than 150 two days in the row. Decrease your tresiba dose by 1 unit if your fasting blood sugar is under 90 two days in the row. You have an appointment for a 2 pm infusion of the antiviral medicine for COVID-19 (remdesivir) tomorrow - go to the main registration area (ER) for your 2 pm infusion. Make sure you wear a surgical mask. Continue to self-isolate for 8 more days. We strongly encourage you to get vaccinated against COVID-19. You are eligible to get vaccinated 3 weeks after recovery from your COVID-19 illness. Follow up with [facility] endocrinology, agricultural extension educator, and your PCP. Referrals: ENDOCRINOLOGY,[facility] [OTHER] - (T1DM, noncompliant. ) Bryanna Ramirez [[facility], [facility] REGISTERED NURSE] - Zenobia Salazar [[employer]] - Activity:: Activity as Tolerated Equipment/Supplies:: No Equipment Needed Diet:: Carb Counting Discharge Orders Discharge Orders: Discharge Order (Routine); Ordered 08/06/21 Ordered By: Kim De Oliveira DS: Summary Time Spent with Patient providing and/or coordinating discharge services: Greater than 30 minutes Status at Discharge Functional status at discharge: independent ambulation Overall status at discharge: patient is back to baseline Mental Status: mental status grossly normal Speech and Movement: speech and movement normal Mood: congruent mood Affect: normal affect Exam Narrative Exam Narrative: General: pleasant tearful Caucacsian female, A&Ox3 HEENT: EOMI, MMM Heart: RRR, no m/r/g Lungs: CTAB Abdomen: soft, nontender, nondistended Extremities: no edema BLE's Psych Mental Status: mental status grossly normal Speech and Movement: speech and movement normal Mood: congruent mood Affect: normal affect DS: Data Vitals/I&O Vitals and I&O: Vital Signs Temperature 36.8 C 08/06/21 10:23 Temperature Source Temporal Artery Scan 08/06/21 10:23 Pulse 99 H 08/06/21 10:23 Pulse 101 H 08/06/21 01:36 Respiratory Rate 21 08/06/21 10:23 Respiratory Effort 08/06/21 08:56 Respiratory Depth Normal 08/06/21 08:56 Respiratory Pattern Normal 08/06/21 08:56 Blood Pressure 129/88 08/06/21 10:23 Blood Pressure Mean 92 08/06/21 08:56 Blood Pressure Position Supine 08/06/21 08:56 Pulse Oximetry 98 08/06/21 10:23 Oxygen Delivery Method Room Air 08/06/21 10:23 Oxygen Flow Rate 0 08/06/21 10:23 Pain Level 0 08/06/21 10:23 Intake & Output 08/05/21 08/05/21 08/06/21 11:59 23:59 11:59 Intake Total 2174.163 / 5784.637 3760.474 / 5784.637 1984.900 / 1984.900 Output Total 1400 / 2550 1150 / 2550 900 / 900 Balance 1824.163 / 3234.637 1410.474 / 3234.637 1085.900 / 1085.900 Weight 67.7 kg 65.2 kg Intake: IV 2504.163 / 4614.637 2110.474 / 4614.637 1910.900 / 1910.900 Oral 720 / 1170 450 / 1170 75 / 75 Output: Urine 1400 / 2550 1150 / 2550 900 / 900 Other: Urine Color Yellow Yellow Yellow Urine Appearance Clear Cloudy Clear Urine Odor Normal Normal None Voiding Methods Bedside Commode Bedside Commode Toilet Data Completed and Pending Completed studies during hospitalization [Text1]: CXR; No acute pulmonary findings. Labs on day of discharge: Labs from last 24 hours 08/06/21 08/06/21 08/06/21 12:00 06:50 06:50 WBC 7.34 D RBC 4.38 Hgb 13.0 Hct 39.8 MCV 90.9 MCH 29.7 MCHC 32.7 RDW 13.0 Plt Count 247 MPV 9.8 Immature Gran % 1.9 Neutrophils % 72.9 Lymphocytes % 17.2 Monocytes % 7.2 Eosinophils % 0.1 Basophils % 0.7 Nucleated RBC % 0 Absolute Neutrophils 5.35 Absolute Lymphocytes 1.26 Absolute Monocytes 0.53 Absolute Eosinophils 0.01 Absolute Basophils 0.05 Sodium Pending Potassium Pending Chloride Pending Carbon Dioxide Pending Anion Gap Pending BUN Pending Creatinine Pending Estimated GFR/1.73 m2 Pending Glucose Pending Hemoglobin A1c 12.7 H Calcium Pending Phosphorus Pending Magnesium Pending 08/06/21 08/06/21 08/05/21 06:50 03:15 23:00 WBC RBC Hgb Hct MCV MCH MCHC RDW Plt Count MPV Immature Gran % Neutrophils % Lymphocytes % Monocytes % Eosinophils % Basophils % Nucleated RBC % Absolute Neutrophils Absolute Lymphocytes Absolute Monocytes Absolute Eosinophils Absolute Basophils Sodium 141 140 140 Potassium 3.9 4.0 4.0 Chloride 109 H 109 H 109 H Carbon Dioxide 19.5 L 17.8 L 15.4 L Anion Gap 12.5 H 13.2 H 15.6 H BUN 3 L 4 L 4 L Creatinine 0.7 0.6 0.8 Estimated GFR/1.73 m2 >= 60.00 >= 60.00 >= 60.00 Glucose 110 H 103 138 H Hemoglobin A1c Calcium 8.4 L 8.5 8.6 Phosphorus Magnesium 08/05/21 08/05/21 08/05/21 18:21 17:40 15:00 WBC RBC Hgb Hct MCV MCH MCHC RDW Plt Count MPV Immature Gran % Neutrophils % Lymphocytes % Monocytes % Eosinophils % Basophils % Nucleated RBC % Absolute Neutrophils Absolute Lymphocytes Absolute Monocytes Absolute Eosinophils Absolute Basophils Sodium Cancelled 140 141 Potassium Cancelled 4.5 D 3.4 L Chloride Cancelled 110 H 108 H Carbon Dioxide Cancelled 12.8 L 15.3 L Anion Gap Cancelled 17.2 H 17.7 H BUN Cancelled 7 8 Creatinine Cancelled 0.7 0.8 Estimated GFR/1.73 m2 Cancelled >= 60.00 >= 60.00 Glucose Cancelled 117 H 114 H Hemoglobin A1c Calcium Cancelled 8.6 8.1 L Phosphorus Magnesium 08/05/21 12:15 WBC RBC Hgb Hct MCV MCH MCHC RDW Plt Count MPV Immature Gran % Neutrophils % Lymphocytes % Monocytes % Eosinophils % Basophils % Nucleated RBC % Absolute Neutrophils Absolute Lymphocytes Absolute Monocytes Absolute Eosinophils Absolute Basophils Sodium 146 H Potassium 3.6 Chloride 113 H Carbon Dioxide 16.5 L Anion Gap 16.5 H BUN 10 Creatinine 0.8 Estimated GFR/1.73 m2 >= 60.00 Glucose 87 Hemoglobin A1c Calcium 8.3 L Phosphorus Magnesium Preliminary micro results at discharge 08/04/21 23:17 Blood Culture - Preliminary Blood NO GROWTH 24 HOURS 08/04/21 23:05 Blood Culture - Preliminary Blood NO GROWTH 24 HOURS PFSH All Active Problems (Updated 08/06/21 @ 12:38 by Kim De Oliveira MD) Hypomagnesemia (Acute) Hypophosphatemia (Acute) Noncompliance with medication regimen (Chronic) COVID-19 (Acute) COVID (Acute) DKA (diabetic ketoacidoses) (Acute) Nausea and vomiting (Acute) Elevated blood pressure affecting in third trimester, antepartum (Acute) Medical History (Updated 08/06/21 @ 12:38 by Kim De Oliveira MD) Crohn's disease Type 1 diabetes mellitus [facility] Endo; h/o hospitalizations for DKA Surgical History Colonoscopy - [facility] (03/06/17) Family History Maternal Grandfather Breast cancer Paternal Cousin Diabetes Maternal Grandfather Heart disease Mother Hypertension Social History Smoking/Tobacco Use Status: Never Smoking risk assessment performed?: Yes Alcohol Intake: never Drug use: Daily Substance use type: marijuana Adopted: No Caregiver/Support person: Yes (2 month old ricardo) Household members: significant other, children and other Details: Fianc?: Glenn; 2-month-old (as of May 2020) Housing: house Number of Children: 1 Communication Needs: None Education Level: high school current occupation: [employer] Pets and animals: Yes Pets and animals: dog(s) Sexually active: Yes Do you think of yourself as: straight/heterosexual Current gender identity: female What is your relationship status?: living with partner Panel score (0-1 are the most socially isolated patients): 1 What type of physical activity do you participate in: walking Seatbelt use: always Helmet use: Yes 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
[2021-08-06 12:08] LABS: Anion Gap 14.8 mmol/L (3-11); BUN 2 mg/dL (7-18); CO2 19.2 mmol/L (21.0-32.0); CREATININE 0.8 mg/dL (0.55-1.02); Calcium 9.1 mg/dL (8.5-10.1); Chloride 107 mmol/L (98-107); Glucose 143 mg/dL (74-106); Magnesium 1.6 mg/dL (1.8-2.4); PHOSPHORUS < 2.0 mg/dL (2.6-4.7); Potassium 3.8 mmol/L (3.5-5.1); Sodium 141 mmol/L (136-145)
[2021-08-06] MEDS: Insulin Aspart 300 UNITS/3 ML PEN SC (12:30)
[2021-08-06] MEDS: MAGNESIUM SULFATE 2 GM/50 ML BAG IVPB (13:21)
--- NOTE | 2021-08-06 14:28 | CMDISCH_ITS ---
- If Service Date Differs Date of service: 08/06/21 Time of Service: 14:28 LACE Index Scoring Tool - Questions: Length of Stay (in days): 2 Acuity (Admit via E.D.?): Yes Comorbidities: Diabetes w/o Complication (Several Hospitalizations with DKA. ) E.D. Visits: 3 - Answers: Total Score: 9 Risk of Readmission: Low Risk Care Management Discharge Reason for Hospitalization: DKA Discharge Plan: Discharge home with no new services via private vehicle with significant other. Follow up with community providers and discharge plan of care as prescribed. Monica will call [facility] to schedule her follow up appointment as their office is currently closed. Patient/Family Education Needs: Review discharge instructions, medications, limitations and plan to follow up with community providers. ask me three.
--- NOTE | 2022-07-27 13:27 | NUR.NOTE ---
Bobby Blanco CCRN Clinical Educator in chart for educational case review for DKA review. Nursing Note:
== END 2021-08-06 16:20 | disposition home or self-care (01) | DRG 637 ==
LOC: ER 08-05 00:36 → ICU 08-05 00:39
PROVIDERS: Internal Medicine; Admitting Provider Family Medicine; Emergency Provider Student in an Organized Health Care Education/Training Program; Visit Provider Family Medicine
DX: E10.10 Type 1 diabetes mellitus with ketoacidosis without coma (principal); U07.1 COVID-19; I47.1 Supraventricular tachycardia; K50.90 Crohn's disease, unspecified, without complications; Z91.14 Patient's other noncompliance with medication regimen; F12.90 Cannabis use, unspecified, uncomplicated; E87.6 Hypokalemia; E83.42 Hypomagnesemia; E83.39 Other disorders of phosphorus metabolism
CPT/HCPCS: 36415; 36416; 80048; 80053; 81025; 82550; 82805; 82962; 87040; 87635; 93005; 96361; 96365; 96366; 96368; 96375; 99285; J1650; 71045; 81003; 81015; 82728; 83036; 83735; 83880; 84100; 84439; 84443; 84484; 85025; 85379; 86140; 87086; 93010; 99223; 99291; J0780; J3480; J3490

== ENCOUNTER 2021-08-07 09:02 | Inpatient (IN) | payer BC, SELFPAY ==
[2021-08-07] VITALS (128 sets, daily range): BP systolic 94–156; BP diastolic 58–105; PULSE 90–131; RESP 9–30; TEMP 36.6–37.1; O2SAT 96–100
--- NOTE | 2021-08-07 09:00 | RT.EKG_ITS ---
APPROVED REPORT Exam: Resting ECG Reason for Exam: HYPERGLYCEMIA Patient Location: E HR:104 bpm ECG Measurements Heart Rate 104 AXIS IL 125 P 77 QRSd 91 QRS 65 QT 419 T 76 QTc 552 Conclusion Sinus tachycardia...rate> 99 Right atrial enlargement...P>0.25mV 2 lds or<-0.24mV aVR/aVL Prolonged QT interval...QTc >495mS
--- NOTE | 2021-08-07 09:09 | W.ED.GENAD ---
Discharge Plan Disposition Patient Disposition: [facility] INPATIENT Condition: Critical Discharge Details Clinical Impression: DKA (diabetic ketoacidosis), COVID-19 Admit Date/Time: 08/07/21 14:41 Admit Provider: Kim De Oliveira Attending Provider: Kim De Oliveira Primary Care Provider: Ana Phelps ED Provider: Thomas Bhagat Discharge Data Discharge Date/Time-TO BE ENTERED AT DEPARTURE: 08/07/21 21:06 Medical Decision Making Patient presenting to the emergency department with chief complaint of elevated blood glucose and feeling similar to recent DKA. Patient was just discharged yesterday from the hospital due to being Covid positive, and having DKA which she feels is due to the viral infection. She states this morning when she woke up she was feeling nauseous, dehydrated, and had elevated glucose reading of high on her insulin monitor which she is an insulin-dependent diabetic. She gave herself 10 units of insulin at that time and called EMS. Patient is alert and oriented with normal cognition and is tachypneic and tachycardic otherwise unremarkable exam findings. Plan to give patient IV fluid bolus and zofran pending laboratory results. 0920-review of EKG shows sinus tachycardia with prolonged QT so Zofran held. EKG reviewed with attending physician and no signs of STEMI please see interpretation. 0940-CBC reviewed and shows improvement versus discharge CBC VBG does show that patient is acidotic confirming suspicion of DKA. pH is above 6.9 so plan to hold on giving any bicarb. 0952-reviewed CMP that shows significant ion gap, stable potassium, and hyperglycemia. Plan to start insulin drip and give further fluid bolus. 1020-reassessed patient and patient is no longer tachypneic but remains tachycardic. Overall appearance of patient shows improvement and patient asking for p.o. hydration which I feel is appropriate and reassuring. 1115-attempted to admit patient to tertiary care center but no beds are currently available. Plan to follow-up on lab before recheck of current inpatient status of bed situation. 1215-was informed by nursing staff that finger glucose was 129 and D5 maintenance fluids had just been started. Ordered 1 amp of D50 and to continue insulin drip with close monitoring. 1430-reviewed repeat labs and patient continues to show signs of improvement with anion gap now of 18 and stable potassium. Plan to speak with hospitalist about admission. 1435-spoke to hospitalist and patient was accepted for ICU admission given that she is still on IV insulin along with potassium. Hospitalist stated she would place any orders for admission. HPI General Mode of arrival: EMS. Date/Time Provider Initiated Documentation: 08/07/21 09:21. Limitations to Documentation: no limitations. Information obtained by: patient. History of Present Illness 20 year old F presents to the emergency department with the chief complaint of Hyperglycemia, described as similar to prior episodes, Patient started experiencing this hour(s) (1) and it has been constant. No relieving factors improve symptom(s), Other factors that worsen symptoms (Cold symptoms) . Patient notes nausea/vomiting; denies confusion. Patient did receive the following treatments prior to arrival, other (10U insulin at 8am) Related Data Home Medications Medication Instructions Recorded Confirmed pen needle, diabetic [BD #100 ea 05/20/20 05/25/20 Ultra-Fine Gissel Pen Needle] pen needle, diabetic [BD #100 ea 05/20/20 05/25/20 Ultra-Fine Gissel Pen Needle] FreeStyle Leyla 2 [place] #1 ea 07/03/20 insulin lispro [Humalog KwikPen 1 - 30 unit SC .AC (4-5 times 09/17/20 08/07/21 Insulin] daily) #45 syrg MDD 150 units FreeStyle Leyla 14 Day Sensor #6 ea 08/06/21 Tresiba FlexTouch U-100 25 unit SUBCUT QAM #15 ml 08/06/21 08/07/21 Previous Rx's Medication Instructions Recorded pen needle, diabetic [BD #100 ea 05/20/20 Ultra-Fine Gissel Pen Needle] pen needle, diabetic [BD #100 ea 05/20/20 Ultra-Fine Gissel Pen Needle] FreeStyle Leyla 2 [place] #1 ea 07/03/20 insulin lispro [Humalog KwikPen 1 - 30 unit SC .AC (4-5 times 09/17/20 Insulin] daily) #45 syrg MDD 150 units FreeStyle Leyla 14 Day Sensor #6 ea 08/06/21 Tresiba FlexTouch U-100 25 unit SUBCUT QAM #15 ml 08/06/21 Allergies Allergy/AdvReac Type Severity Reaction Status Date / Time No Known Allergies Allergy Verified 08/07/21 09:21 General CHACHA: 2 Review of Systems Constitutional Constitutional: Denies chills, Denies fever(s) and Denies headache(s) ENT Ears, Nose, Mouth, and Throat: Denies headache(s) Cardiovascular Cardiovascular: Denies chest pain, Reports rapid heart rate, Reports palpitations and Denies dyspnea Respiratory Respiratory: Denies cough and Denies dyspnea Gastrointestinal Gastrointestinal: Denies abdominal pain, Denies diarrhea, Reports nausea and Denies vomiting Genitourinary Genitourinary: Denies difficulty voiding and Denies dysuria Integumentary/Breasts Skin/Breast: Denies rash Neurologic Neurologic: Denies headache(s) Endocrine Endocrine: Reports as per HPI and Reports palpitations PFSH All Active Problems (Updated 08/07/21 @ 15:01 by Kim De Oliveira MD) Discharge planning issues (Acute) DVT prophylaxis (Acute) DKA (diabetic ketoacidosis) (Acute) Hypomagnesemia (Acute) Hypophosphatemia (Acute) Noncompliance with medication regimen (Chronic) COVID-19 (Acute) COVID (Acute) Nausea and vomiting (Acute) Elevated blood pressure affecting in third trimester, antepartum (Acute) Medical History Crohn's disease Type 1 diabetes mellitus [facility] Endo; h/o hospitalizations for DKA Surgical History Colonoscopy - [facility] (03/06/17) Family History Maternal Grandfather Breast cancer Paternal Cousin Diabetes Maternal Grandfather Heart disease Mother Hypertension Social History Smoking/Tobacco Use Status: Never Smoking risk assessment performed?: Yes Alcohol Intake: never Drug use: Daily Substance use type: marijuana Adopted: No Caregiver/Support person: Yes (2 month old ricardo) Household members: significant other, children and other Details: Fianc?: Glenn; 2-month-old (as of May 2020) Housing: house Number of Children: 1 Communication Needs: None Education Level: high school current occupation: [employer] Pets and animals: Yes Pets and animals: dog(s) Sexually active: Yes Do you think of yourself as: straight/heterosexual Current gender identity: female What is your relationship status?: living with partner Panel score (0-1 are the most socially isolated patients): 1 What type of physical activity do you participate in: walking Seatbelt use: always Helmet use: Yes Drive intox or ride 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 Exam Const General: cooperative, no acute distress and ill appearing Orientation: alert, awake and oriented x3 Resp Effort & Inspection: normal respiratory effort, able to speak in complete sentences, no respiratory distress and tachypneic Auscultation: clear to auscultation bilaterally Cardio Rate: tachycardic Rhythm: regular rhythm Heart Sounds: S1 normal and S2 normal Pulses: radial pulses present GI Inspection: normal to inspection Palpation: soft and nontender Auscultation: normal bowel sounds Skin General skin exam: no rashes or lesions noted Neuro General: patient alert, patient awake, patient oriented x3, moves all extremities and no focal motor deficits Sensory Exam: no sensory deficits noted Critical Care Time Critical Care Time Critical Care Time: Yes Total Critical Care Time: 45 Attestation: Critical care time was utilized assessing patient, reviewing labs, developing plan of care, monitoring interventions and making adjustments with frequent reassessment, contacting hospitalist and outside facilities for admission
[2021-08-07] MEDS: Normal Saline 1,000 ML 1000 ML IV ×2 (09:10→10:15)
[2021-08-07 09:19] LABS: HCO3 (Venous) 7 mmol/L (23-28); O2 Sat (Venous) 65 %; TCO2 (Venous) 6 mmol/L (24-29); pCO2 (Venous) 22 mmHg (41-51); pO2 (Venous) 39 mmHg
[2021-08-07 09:27] LABS: Abs Immature Grans 0.16 10^3/uL (0.0-0.06); Absolute Basophil Count 0.08 10^3/uL (0.0-0.2); Absolute Eosinophil Count 0.46 10^3/uL (0.0-0.7); Absolute Monocyte Count 0.28 10^3/uL (0.1-0.8); Absolute Neutrophil Count 5.18 10^3/uL (1.2-6.7); Basophils % 1.2; Eosinophils % 6.7; HCT 50.2 % (36.0-46.0); HGB 15.7 g/dL (11.2-15.7); Immature Grans % 2.3; Lymphocytes % 10.2; MCH 29.9 pg (27.0-33.0); MCHC 31.3 % (32.0-36.0); MCV 95.6 fL (80-95); MPV 10.1 fL (8.0-11.0); Monocytes % 4.1; Neutrophils % 75.5; Nucleated RBC 0 %; Platelet Count 294 10^3/uL (130-400); RBC 5.25 10^6/uL (3.93-5.22); WBC 6.86 10^3/uL (4.4-10.8)
[2021-08-07 09:32] LABS: pH (Venous) 7.09 (7.31-7.41)
[2021-08-07 09:38] LABS: Magnesium 2.3 mg/dL (1.8-2.4); PHOSPHORUS 4.7 mg/dL (2.6-4.7)
[2021-08-07 09:39] LABS: ALT 36 U/L (14-59); AST 29 U/L (15-37); Alkaline Phosphatase 167 U/L (46-116); Anion Gap 29.5 mmol/L (3-11); BUN 13 mg/dL (7-18); Bilirubin, Total 0.7 mg/dL (0.2-1.0); CREATININE 1.1 mg/dL (0.55-1.02); Chloride 98 mmol/L (98-107); Potassium 4.9 mmol/L (3.5-5.1); Sodium 136 mmol/L (136-145)
[2021-08-07 09:42] LABS: Glucose 503 mg/dL (74-106)
[2021-08-07 09:47] LABS: CO2 8.5 mmol/L (21.0-32.0)
[2021-08-07 09:50] LABS: Bilirubin Negative (Negative); Blood Trace-intact (Negative); Clarity Clear (Clear); Glucose 500 mg/dL (Negative); Ketones >=160 mg/dL (Negative); Leukocyte Esterase Negative (Negative); Nitrite Negative (Negative); Specific Gravity >= 1.030 (1.005-1.025); Urobilinogen 0.2 EU/dL (Up TO 0.2); pH 5.5 (5-8)
[2021-08-07 09:58] LABS: Bacteria Negative HPF (Negative); Crystals Negative HPF (Negative); Epithelial Cells Few HPF (Negative); Mucus Negative (Negative); RBC 0-2 HPF (0-2); WBC Negative HPF (0-5)
[2021-08-07 09:59] LABS: C & S Indicated? No; Casts 0-2 Hyaline LPF (Negative)
[2021-08-07] MEDS: INSULIN REGULAR IN 0.9 % NACL 100 UNIT/100 ML BAG 6 UNIT IV (10:15)
[2021-08-07] MEDS: POTASSIUM CHLORIDE 20 MEQ/100 ML BAG 50 MEQ IVPB (11:05)
[2021-08-07] MEDS: Normal Saline 250 ML IV (11:10)
[2021-08-07 11:23] LABS: Anion Gap 20.9 mmol/L (3-11); BUN 11 mg/dL (7-18); CO2 12.1 mmol/L (21.0-32.0); CREATININE 0.9 mg/dL (0.55-1.02); Calcium 7.8 mg/dL (8.5-10.1); Chloride 108 mmol/L (98-107); Glucose 228 mg/dL (74-106); Potassium 4.4 mmol/L (3.5-5.1); Sodium 141 mmol/L (136-145)
[2021-08-07] MEDS: POTASSIUM CHLORIDE/D5-0.45NACL 1,000 ML 150 MEQ IV (12:14)
[2021-08-07] MEDS: Dextrose 50%-Water 25 GM/50 ML SYR (12:24)
[2021-08-07 13:17] LABS: Anion Gap 18.3 mmol/L (3-11); BUN 9 mg/dL (7-18); CO2 13.7 mmol/L (21.0-32.0); CREATININE 0.8 mg/dL (0.55-1.02); Calcium 7.6 mg/dL (8.5-10.1); Chloride 108 mmol/L (98-107); Glucose 247 mg/dL (74-106); Potassium 4.1 mmol/L (3.5-5.1); Sodium 140 mmol/L (136-145)
[2021-08-07 13:31] LABS: BE (Venous) -17 mmol/L (-2-3); HCO3 (Venous) 10 mmol/L (23-28); O2 Sat (Venous) 74 %; TCO2 (Venous) 11 mmol/l (24-29); pCO2 (Venous) 24 mmHg (41-51); pH (Venous) 7.24 (7.31-7.41); pO2 (Venous) 45 mmHg
[2021-08-07 14:44] LABS: Anion Gap 16.2 mmol/L (3-11); BUN 7 mg/dL (7-18); CO2 15.8 mmol/L (21.0-32.0); CREATININE 0.7 mg/dL (0.55-1.02); Calcium 7.7 mg/dL (8.5-10.1); Chloride 107 mmol/L (98-107); Glucose 153 mg/dL (74-106); Potassium 3.6 mmol/L (3.5-5.1); Sodium 139 mmol/L (136-145)
--- NOTE | 2021-08-07 14:49 | W.PM.HP.N ---
Date of service: 08/07/21 Time of Service: 17:30 Assessment and Plan Assessment and plan (1) DKA (diabetic ketoacidosis): Status: Acute Assessment and plan: Continue insulin infusion, IVF, and careful monitoring of lytes until anion gap closes. We are hoping that the patient's tresiba can be again brought to the hospital. She is to receive 30 units tonight. I think her DKA returned because of COVID-19 and because the dose of tresiba was insufficient to keep her from going back into DKA with her currently higher insulin requirements. (2) Type 1 diabetes mellitus: Assessment and plan: As above Would benefit from having a close relationship with diabetes education and needs to follow up with [facility] endocrinology. If still here on Monday, hoping for hospital educator consult here. The patient is interested in dexcom CGM rather than her leyla 2. Qualifiers: Diabetes mellitus complication status: with hyperglycemia Qualified Code(s): E10.65 - Type 1 diabetes mellitus with hyperglycemia (3) COVID-19: Status: Acute Assessment and plan: Not requiring O2. Could be a trigger for her DKA. Will give one more dose of remdesivir. (4) Noncompliance with medication regimen: Status: Chronic Assessment and plan: Would benefit from close follow up with with informatics educator and possibly a nurse in the community. (5) DVT prophylaxis: Status: Acute Assessment and plan: SC enoxaparin (6) Discharge planning issues: Status: Acute Assessment and plan: Full code Admit to the ICU. Total Critical Care Time 45 minutes History of Present Illness History of Present Illness Chief Complaint: Shortness of breath, not feeling well, blood sugar critically high at home Narrative: Ms Dutta is a 20 year old female with PMHx of T1DM, medication noncompliance, as well as current diagnosis of COVID-19, minimally symptomatic, as Crohn's disease, who was discharged from our service yesterday after presenting with DKA in setting of acute COVID-19 illness without evidence of pneumonia/hypoxia, who returned to [facility] ED today not feeling well and again found to be in DKA. She stated that her blood sugar at home this morning was too high for her meter and that she was short of breath. She was also vomiting. The patient states that she does not think that her tresiba went home with her on discharge yesterday, but our pharmacy is letting me know that it was returned to her. The patient did not take her long acting insulin this morning and just took her 10 units of humalog. Her blood sugar on presentation here was 518, pH was 7.09, and her anion gap was 29.5. She was initiated on insulin infusion as well as IVF. Initially transfer to a tertiary care facility was sought as there were no ICU beds available at our facility. No beds were available at [facility] and by this afternoon we, in fact, have an ICU bed for her. By now, her anion gap is 16.2 and her BG is 120s. She has no evidence of hypoxia at this time and is getting admitted to the hospitalist service predominantly for DKA. Review of Systems All systems reviewed & are unremarkable except as noted in HPI and below PFSH All Active Problems (Updated 08/07/21 @ 15:01 by Kim De Oliveira MD) Discharge planning issues (Acute) DVT prophylaxis (Acute) DKA (diabetic ketoacidosis) (Acute) Hypomagnesemia (Acute) Hypophosphatemia (Acute) Noncompliance with medication regimen (Chronic) COVID-19 (Acute) COVID (Acute) Nausea and vomiting (Acute) Elevated blood pressure affecting in third trimester, antepartum (Acute) Medical History Crohn's disease Type 1 diabetes mellitus [facility] Endo; h/o hospitalizations for DKA Surgical History Colonoscopy - [facility] (03/06/17) Family History Maternal Grandfather Breast cancer Paternal Cousin Diabetes Maternal Grandfather Heart disease Mother Hypertension Social History Smoking/Tobacco Use Status: Never Smoking risk assessment performed?: Yes Alcohol Intake: never Drug use: Daily Substance use type: marijuana Adopted: No Caregiver/Support person: Yes (2 month old ricardo) Household members: significant other, children and other Details: Fianc?: Glenn; 2-month-old (as of May 2020) Housing: house Number of Children: 1 Communication Needs: None Education Level: high school current occupation: 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 Working smoke detector in home: Yes Fire extinguisher in home: No Carbon monox detector in home: Yes Firearms in home: No Do you feel safe at home: Yes Do you feel safe in your relationship?: Yes Victim of physical abuse: No Victim of emotional abuse: No Victim of sexual abuse: No Female Reproductive History Menstrual Age of Menarche: 10 Duration of menses: 3-5 days control method: pills History History 1 Para 0 Hx # Term Pregnancies 0 Multiple births 0 Hx # Pregnancies 0 Ectopic pregnancies 0 AB induced 0 Hx Number of Living Children 0 AB spontaneous 0 Meds Allergies and Home Medications Allergies Allergy/AdvReac Type Severity Reaction Status Date / Time No Known Allergies Allergy Verified 08/07/21 09:21 Home Medications Medication Instructions Recorded Confirmed Type pen needle, diabetic [BD #100 ea 05/20/20 05/25/20 Rx Ultra-Fine Gissel Pen Needle] pen needle, diabetic [BD #100 ea 05/20/20 05/25/20 Rx Ultra-Fine Gissel Pen Needle] FreeStyle Leyla 2 [place] #1 ea 07/03/20 Rx insulin lispro [Humalog KwikPen 1 - 30 unit SC .AC (4-5 times 09/17/20 08/07/21 Rx Insulin] daily) #45 syrg MDD 150 units FreeStyle Leyla 14 Day Sensor #6 ea 08/06/21 Rx Tresiba FlexTouch U-100 25 unit SUBCUT QAM #15 ml 08/06/21 08/07/21 Rx Exam Narrative Exam Narrative: General: Pleasant female who is not dyspneic/tachypenic, A&Ox3, not in acute distress Neurological: A&Ox3, no focal deficits Psychiatric: Appropriate speech pattern/content Skin: Visible skin intact, including B feet HEENT: Atraumatic, normocephalic, EOMI, MMM, clear oropharynx, no submandibular or cervical lymphadenopathy, no goiter or JVD Cardiovascular: RRR, no m/r/g Lungs: CTAB Gastrointestinal: soft, nontender, nondistended Genitourinary: deferred Extremities: no edema or lesions BLEs, 2+ pedal pulses B, no c/c. Results Imaging Additional studies: ST, HR 104, no acute ischemia Labs Result diagrams: 08/07/21 09:10 08/07/21 14:30 Labs: Laboratory Results - last 24 hr 08/07/21 08/07/21 08/07/21 09:10 09:10 09:10 WBC RBC Hgb Hct MCV MCH MCHC RDW Plt Count MPV Immature Gran % Neutrophils % Lymphocytes % Monocytes % Eosinophils % Basophils % Nucleated RBC % Absolute Neutrophils Absolute Lymphocytes Absolute Monocytes Absolute Eosinophils Absolute Basophils VBG pH 7.09 L* VBG pCO2 22 L VBG pO2 39 VBG HCO3 7 L VBG Total CO2 6 L VBG O2 Saturation 65 VBG Base Excess < -15 L Sodium 136 Potassium 4.9 D Chloride 98 Carbon Dioxide 8.5 L Anion Gap 29.5 H BUN 13 D Creatinine 1.1 H Estimated GFR/1.73 m2 >= 60.00 Glucose 503 H* D Calcium 9.0 Phosphorus 4.7 Magnesium 2.3 Total Bilirubin 0.7 AST 29 ALT 36 Alkaline Phosphatase 167 H Total Protein 9.0 H Albumin 4.0 Urine Color Urine Clarity Urine pH Ur Specific [place] Urine Protein Urine Ketones Urine Blood Urine Nitrite Urine Bilirubin Urine Urobilinogen Ur Leukocyte Esterase Urine RBC Urine WBC Ur Epithelial Cells Urine Crystals Urine Bacteria Urine Casts Urine Mucus Ur Culture Indicated? Urine Glucose 08/07/21 08/07/21 08/07/21 09:10 09:40 11:10 WBC 6.86 RBC 5.25 H Hgb 15.7 D Hct 50.2 H D MCV 95.6 H MCH 29.9 MCHC 31.3 L RDW 13.0 Plt Count 294 MPV 10.1 Immature Gran % 2.3 Neutrophils % 75.5 Lymphocytes % 10.2 Monocytes % 4.1 Eosinophils % 6.7 Basophils % 1.2 Nucleated RBC % 0 Absolute Neutrophils 5.18 Absolute Lymphocytes 0.70 L Absolute Monocytes 0.28 Absolute Eosinophils 0.46 Absolute Basophils 0.08 VBG pH VBG pCO2 VBG pO2 VBG HCO3 VBG Total CO2 VBG O2 Saturation VBG Base Excess Sodium 141 Potassium 4.4 Chloride 108 H Carbon Dioxide 12.1 L Anion Gap 20.9 H BUN 11 Creatinine 0.9 Estimated GFR/1.73 m2 >= 60.00 Glucose 228 H D Calcium 7.8 L Phosphorus Magnesium Total Bilirubin AST ALT Alkaline Phosphatase Total Protein Albumin Urine Color Yellow Urine Clarity Clear Urine pH 5.5 Ur Specific [place] >= 1.030 H Urine Protein 30 H Urine Ketones >=160 H Urine Blood Trace-intact H Urine Nitrite Negative Urine Bilirubin Negative Urine Urobilinogen 0.2 Ur Leukocyte Esterase Negative Urine RBC 0-2 Urine WBC Negative Ur Epithelial Cells Few Urine Crystals Negative Urine Bacteria Negative Urine Casts 0-2 Hyaline Urine Mucus Negative Ur Culture Indicated? No Urine Glucose 500 H 08/07/21 08/07/21 08/07/21 12:50 12:50 12:50 WBC RBC Hgb Hct MCV MCH MCHC RDW Plt Count MPV Immature Gran % Neutrophils % Lymphocytes % Monocytes % Eosinophils % Basophils % Nucleated RBC % Absolute Neutrophils Absolute Lymphocytes Absolute Monocytes Absolute Eosinophils Absolute Basophils VBG pH Cancelled 7.24 L VBG pCO2 Cancelled 24 L VBG pO2 Cancelled 45 VBG HCO3 Cancelled 10 L VBG Total CO2 Cancelled 11 L VBG O2 Saturation Cancelled 74 VBG Base Excess Cancelled -17 L Sodium 140 Potassium 4.1 Chloride 108 H Carbon Dioxide 13.7 L Anion Gap 18.3 H BUN 9 Creatinine 0.8 Estimated GFR/1.73 m2 >= 60.00 Glucose 247 H Calcium 7.6 L Phosphorus Magnesium Total Bilirubin AST ALT Alkaline Phosphatase Total Protein Albumin Urine Color Urine Clarity Urine pH Ur Specific [place] Urine Protein Urine Ketones Urine Blood Urine Nitrite Urine Bilirubin Urine Urobilinogen Ur Leukocyte Esterase Urine RBC Urine WBC Ur Epithelial Cells Urine Crystals Urine Bacteria Urine Casts Urine Mucus Ur Culture Indicated? Urine Glucose Last Vital Signs Temp 37.1 C 08/07/21 13:34 Pulse 102 H 08/07/21 14:15 Resp 10 L 08/07/21 14:15 BP 124/72 08/07/21 14:15 Pulse Ox 99 08/07/21 14:15
[2021-08-07] MEDS: POTASSIUM CHLORIDE/D5-0.45NACL 1,000 ML 100 MEQ IV (16:44)
--- NOTE | 2021-08-07 17:40 | NUR.NOTE ---
fingerstick increase of 12 no rate change Nursing Note:
[2021-08-07 19:50] LABS: Anion Gap 15.7 mmol/L (3-11); BUN 7 mg/dL (7-18); CO2 17.3 mmol/L (21.0-32.0); CREATININE 0.7 mg/dL (0.55-1.02); Chloride 108 mmol/L (98-107); Glucose 84 mg/dL (74-106); Magnesium 1.8 mg/dL (1.8-2.4); PHOSPHORUS < 2.0 mg/dL (2.6-4.7); Potassium 3.5 mmol/L (3.5-5.1); Sodium 141 mmol/L (136-145)
[2021-08-07 23:00] LABS: Anion Gap 15.9 mmol/L (3-11); BUN 5 mg/dL (7-18); CO2 16.1 mmol/L (21.0-32.0); CREATININE 0.7 mg/dL (0.55-1.02); Calcium 7.4 mg/dL (8.5-10.1); Chloride 109 mmol/L (98-107); Glucose 133 mg/dL (74-106); Magnesium 1.7 mg/dL (1.8-2.4); PHOSPHORUS 2.2 mg/dL (2.6-4.7); Potassium 3.2 mmol/L (3.5-5.1); Sodium 141 mmol/L (136-145)
[2021-08-08] VITALS (73 sets, daily range): BP systolic 119–128; BP diastolic 64–72; PULSE 79–120; RESP 10–32; TEMP 36.7–37.2; O2SAT 94–99
[2021-08-08] MEDS: POTASSIUM CHLORIDE/D5-0.45NACL 1,000 ML 150 MEQ IV (02:20)
[2021-08-08 03:01] LABS: BUN 5 mg/dL (7-18); CREATININE 0.7 mg/dL (0.55-1.02); Calcium 7.8 mg/dL (8.5-10.1); Chloride 109 mmol/L (98-107); Glucose 140 mg/dL (74-106); Potassium 3.5 mmol/L (3.5-5.1); Sodium 140 mmol/L (136-145)
[2021-08-08] MEDS: MAGNESIUM SULFATE 2 GM/50 ML BAG IVPB (06:27)
[2021-08-08 07:00] LABS: Lactate 0.8 mmol/L (0.6-1.4)
[2021-08-08 07:04] LABS: Abs Immature Grans 0.09 10^3/uL (0.0-0.06); Absolute Basophil Count 0.02 10^3/uL (0.0-0.2); Absolute Eosinophil Count 0.05 10^3/uL (0.0-0.7); Absolute Lymphocyte Count 1.25 10^3/uL (1.2-3.4); Basophils % 0.5; Eosinophils % 1.2; HGB 12.1 g/dL (11.2-15.7); Immature Grans % 2.1; MCHC 32.7 % (32.0-36.0); MCV 91.8 fL (80-95); Monocytes % 9.3; Neutrophils % 57.9; Nucleated RBC 0 %; Platelet Count 201 10^3/uL (130-400); RBC 4.03 10^6/uL (3.93-5.22); RDW-SD 43.8 fL; WBC 4.31 10^3/uL (4.4-10.8)
[2021-08-08 07:22] LABS: ALT 21 U/L (14-59); AST 16 U/L (15-37); Albumin 2.6 g/dL (3.4-5.0); Alkaline Phosphatase 99 U/L (46-116); Anion Gap 12.7 mmol/L (3-11); BUN 3 mg/dL (7-18); Bilirubin, Direct 0.1 mg/dL (0.0-0.2); Bilirubin, Total 0.5 mg/dL (0.2-1.0); C-Reactive Protein 0.98 mg/dL (0.0-0.3); CO2 17.3 mmol/L (21.0-32.0); CREATININE 0.5 mg/dL (0.55-1.02); Calcium 8.1 mg/dL (8.5-10.1); Chloride 109 mmol/L (98-107); Glucose 242 mg/dL (74-106); Magnesium 1.8 mg/dL (1.8-2.4); PHOSPHORUS 2.4 mg/dL (2.6-4.7); Potassium 4.2 mmol/L (3.5-5.1); Sodium 139 mmol/L (136-145); Total Protein 5.9 g/dL (6.4-8.2)
[2021-08-08 07:24] LABS: Prothrombin Time 10.4 sec (9.3-11.0)
[2021-08-08 07:47] LABS: Ferritin 216 ng/mL (8-252)
[2021-08-08 08:10] LABS: D-Dimer 761 ng/mlFEU (<500)
--- NOTE | 2021-08-08 11:22 | DSE_ITS ---
Date of service: 08/08/21 Time of Service: 11:28 DS: Diagnosis Discharge Diagnosis (1) DKA (diabetic ketoacidosis): Status: Acute (2) Type 1 diabetes mellitus: (3) COVID-19: Status: Acute (4) Hypophosphatemia: Status: Acute (5) Hypomagnesemia: Status: Acute (6) Noncompliance with medication regimen: Status: Chronic Discharge Plan Disposition Patient Disposition: AGAINST MEDICAL ADVICE Condition: Fair Discharge Details Reason For Visit: DKA COVID-19 Admit Date/Time: 08/07/21 14:41 Admit Provider: Kim De Oliveira Attending Provider: Kim De Oliveira Primary Care Provider: Ana Phelps Hospital Course Hospital Course: Ms Dutta is a 20 year old T1DM on basal bolus insulin, noncompliant with her medication regimen, who was a patient in our facility from 08/04/21 until 08/06/21 for DKA in setting of acute COVID-19 illness, who returned to [facility] ED on 08/07/21 in DKA and was admitted to the ICU. It is felt that the recurrence of DKA was probably driven by COVID-19. The patient was treated with intravenous insulin infusion as well as IVF while carefully monitoring chemistries. The patient was written for long acting insulin (tresiba) to be given at night prior to discontinuation of her insulin drip upon resolution of her DKA. The drip was discontinued this morning upon documented resolution of her elevated anion gap. Given unpredictability of her sugars in setting of COVID-19 (without respiratory symptoms or hypoxia), the preferred plan would have been for the patient to stay in the hospital for 24 hours of monitoring to ensure that the dose of tresiba was enough. However, the patient is leaving AMA right now stating that she never received the documented Tresiba (30 units charted as given at 01:01 am by nursing). Investigation into whether it was actually given has been initiated. We are unable to locate any tresiba pens in the hospital right now that would belong to the patient that appear to have 30 units missing. (Insulin administra tions are not required to be witnessed in our facility at this time). The patient is adamant that she was awake at the time of documented tresiba administration and could not have missed this administration. Given this, her plan is to leave [facility] and give herself a dose of tresiba now. We discussed how I would be willing to give her tresiba here with 24 hrs of monitoring to ensure she does not become hypoglycemic, considering that 30 units of tresiba may already be on board. And we discussed that if she did not get tresiba last night, since her insulin drip was discontinued before she got it in that theoretical scenario, then she is at high risk of going back into DKA. Both hypoglycemia and DKA can kill. The patient verbalizes understanding of this, but states she is leaving our facility AMA regardless of what I say. I advised her that the Leyla 2 CGM is also a fingerstick glucometer and that CGM readings of subcutaneous glucose are 30 minutes behind and that she would need to check her fingersticks. I wrote her for precision elijah strips which would fit her Leyla 2. I discussed with the patient that she should check her blood sugars every 1 hour and head to the hospital if her blood sugars are in low 100s and heading down and not wait until they are in the 70s. I told her to have a lot of sweet foods on her for the next 24 hrs in case she does become hypoglycemic. We discussed th at she would have to go to the nearest ED, which may not be [facility], which is her plan. We also discussed that should she DKA, she needs to return to the hospital. The patient verbalized understanding of all of the above. Because the patient is leaving AMA with plans to give herself tresiba as soon as she leaves, she will not be receiving the dose of tresiba by us. The patient is felt to be at her baseline mental status when making this decision. The patient is stable from the stand point of COVID-19. She did not get her 3rd dose of remdesivir which was scheduled for yesterday afternoon but her COVID-19 is not felt to be causing any symptoms at this time other than driving her recurrent DKA and high insulin requirements. Total Critical Care Time, including time spent on documentation and counseling of the patient was 80 minutes. Home Meds and New Rx's Prescriptions: New (DME) FreeStyle Precision Elijah Strips Strip See Rx Instructions .ROUTE .MEDSUPPLY Qty: 50 RF: 11 Continued insulin lispro [Humalog KwikPen Insulin] 100 unit/mL insulin pen 1 - 30 unit SC .AC (4-5 times daily) MDD 150 units Qty: 45 RF: 0 Changed Tresiba FlexTouch U-100 100 unit/mL (3 mL) insulin pen 30 unit SUBCUT HS Qty: 15 RF: 3 No Action (DME) FreeStyle Leyla 14 Day Sensor Kit See Rx Instructions .ROUTE .MEDSUPPLY Qty: 6 RF: 3 (DME) pen needle, diabetic [BD Ultra-Fine Gissel Pen Needle] 32 gauge x 5/32 needle 1 device miscellaneous DIRECTED Qty: 100 RF: 0 (DME) pen needle, diabetic [BD Ultra-Fine Gissel Pen Needle] 32 gauge x 5/32 needle See Rx Instructions .ROUTE .COMPLEX Qty: 100 RF: 0 (DME) FreeStyle Leyla 2 [place] Misc See Rx Instructions .ROUTE .MEDSUPPLY Qty: 1 RF: 0 Discharge Instructions Instructions: Diabetic Ketoacidosis (DC), What to Do if Your Blood Sugar is Low (DC) Additional Instructions: You should not leave the hospital against medical advice. Since you are leaving, you should check your FINGERSTICK glucose every hour for the next 24 hrs to ensure you do not become hypoglycemic after your administration of tresiba. Continuous glucose monitor readings are 30 minutes behind and are inacurate at either high or low blood sugar ranges and need to be double-checked with fingersticks. Please, return to the ED if your blood sugars are in low 100s and are going down or if your blood sugars are going up and not coming down, or if you are developing symptoms of DKA. Go to the closest ER - you may not have time to get to [facility] before dying. Follow up with your PCP, [facility] endocrinology, and with diabetic education. Referrals: ENDOCRINOLOGY,[facility] [OTHER] - Bryanna Ramirez [[facility] PRACT[facility] REGISTERED NURSE] - Zenobia Salazar [WINDOW [employer]ER] - Activity:: Activity as Tolerated Equipment/Supplies:: Test strips and Lancets Diet:: Carb Counting Discharge Orders Discharge Orders: Discharge Order (Routine); Ordered 08/08/21 Ordered By: Kim De Oliveira DS: Summary Time Spent with Patient providing and/or coordinating discharge services: Greater than 30 minutes Status at Discharge Functional status at discharge: independent ambulation Overall status at discharge: patient is progressing back to baseline Mental Status: mental status grossly normal Speech and Movement: speech and movement normal Mood: labile mood Affect: sad, anxious affect and irritable affect Exam Narrative Exam Narrative: General: Pleasant female who is not dyspneic/tachypenic, A&Ox3, not in acute distress Neurological: A&Ox3, no focal deficits Psychiatric: Appropriate speech pattern/content Skin: Visible skin intact, including B feet HEENT: Atraumatic, normocephalic, EOMI, MMM, clear oropharynx, no submandibular or cervical lymphadenopathy, no goiter or JVD Cardiovascular: RRR, no m/r/g Lungs: CTAB Gastrointestinal: soft, nontender, nondistended Genitourinary: deferred Extremities: no edema or lesions BLEs, 2+ pedal pulses B, no c/c. Psych Mental Status: mental status grossly normal Speech and Movement: speech and movement normal Mood: labile mood Affect: sad, anxious affect and irritable affect DS: Data Vitals/I&O Vitals and I&O: Vital Signs Temperature 36.7 C 08/08/21 04:03 Temperature Source Temporal Artery Scan 08/08/21 04:03 Pulse 79 08/08/21 03:55 Pulse 94 H 08/08/21 06:50 Respiratory Rate 12 08/08/21 06:50 Respiratory Effort Non-Labored 08/08/21 04:03 Respiratory Depth Normal 08/08/21 04:03 Respiratory Pattern Normal 08/08/21 04:03 Blood Pressure 121/68 08/08/21 06:00 Blood Pressure Mean 83 08/08/21 03:55 Blood Pressure Position Supine 08/07/21 09:14 Pulse Oximetry 98 08/08/21 06:50 Oxygen Delivery Method Room Air 08/08/21 04:03 Oxygen Flow Rate 0 08/08/21 04:03 Pain Level 0 08/08/21 04:03 Intake & Output 08/07/21 08/07/21 08/08/21 11:59 23:59 11:59 Intake Total 2186.2 / 3106.183 919.983 / 3106.183 1710.033 / 1710.033 Output Total 1250 / 1250 850 / 850 Balance 2186.2 / 1856.183 -330.017 / 1856.183 860.033 / 860.033 Weight 65.317 kg 66.3 kg 67.6 kg Intake: IV 2186.2 / 3086.183 899.983 / 3086.183 1610.033 / 1610.033 Oral 20 20 100 / 100 Output: Urine 1250 / 1250 850 / 850 Other: Urine Color Yellow Urine Appearance Clear Urine Odor None Voiding Methods Bedside Commode Data Completed and Pending Labs on day of discharge: Labs from last 24 hours 08/08/21 08/08/21 08/08/21 12:00 06:45 06:45 WBC 4.31 L D RBC 4.03 Hgb 12.1 D Hct 37.0 D MCV 91.8 D MCH 30.0 MCHC 32.7 RDW 13.0 Plt Count 201 MPV 10.0 Immature Gran % 2.1 Neutrophils % 57.9 Lymphocytes % 29.0 Monocytes % 9.3 Eosinophils % 1.2 Basophils % 0.5 Nucleated RBC % 0 Absolute Neutrophils 2.50 Absolute Lymphocytes 1.25 Absolute Monocytes 0.40 Absolute Eosinophils 0.05 Absolute Basophils 0.02 PT 10.4 INR 1.0 D-Dimer 761 H VBG pH VBG pCO2 VBG pO2 VBG HCO3 VBG Total CO2 VBG O2 Saturation VBG Base Excess VBG Lactate Sodium Pending Potassium Pending Chloride Pending Carbon Dioxide Pending Anion Gap Pending BUN Pending Creatinine Pending Estimated GFR/1.73 m2 Pending Glucose Pending Calcium Pending Phosphorus Pending Magnesium Ferritin Total Bilirubin Conjugated Bilirubin AST ALT Alkaline Phosphatase C-Reactive Protein Total Protein Albumin 25-OH Vitamin D Total 08/08/21 08/08/21 08/08/21 06:45 06:45 06:45 WBC RBC Hgb Hct MCV MCH MCHC RDW Plt Count MPV Immature Gran % Neutrophils % Lymphocytes % Monocytes % Eosinophils % Basophils % Nucleated RBC % Absolute Neutrophils Absolute Lymphocytes Absolute Monocytes Absolute Eosinophils Absolute Basophils PT INR D-Dimer VBG pH VBG pCO2 VBG pO2 VBG HCO3 VBG Total CO2 VBG O2 Saturation VBG Base Excess VBG Lactate 0.8 Sodium 139 Potassium 4.2 Chloride 109 H Carbon Dioxide 17.3 L Anion Gap 12.7 H BUN 3 L Creatinine 0.5 L Estimated GFR/1.73 m2 >= 60.00 Glucose 242 H D Calcium 8.1 L Phosphorus 2.4 L Magnesium 1.8 Ferritin 216 Total Bilirubin 0.5 Conjugated Bilirubin 0.1 AST 16 ALT 21 Alkaline Phosphatase 99 C-Reactive Protein 0.98 H Total Protein 5.9 L Albumin 2.6 L 25-OH Vitamin D Total Pending 08/08/21 08/07/21 08/07/21 02:46 22:15 19:30 WBC RBC Hgb Hct MCV MCH MCHC RDW Plt Count MPV Immature Gran % Neutrophils % Lymphocytes % Monocytes % Eosinophils % Basophils % Nucleated RBC % Absolute Neutrophils Absolute Lymphocytes Absolute Monocytes Absolute Eosinophils Absolute Basophils PT INR D-Dimer VBG pH VBG pCO2 VBG pO2 VBG HCO3 VBG Total CO2 VBG O2 Saturation VBG Base Excess VBG Lactate Sodium 140 141 141 Potassium 3.5 3.2 L 3.5 Chloride 109 H 109 H 108 H Carbon Dioxide 21.0 16.1 L 17.3 L Anion Gap 10.0 15.9 H 15.7 H BUN 5 L 5 L 7 Creatinine 0.7 0.7 0.7 Estimated GFR/1.73 m2 >= 60.00 >= 60.00 >= 60.00 Glucose 140 H 133 H 84 D Calcium 7.8 L 7.4 L 8.0 L Phosphorus 2.2 L < 2.0 L Magnesium 1.7 L 1.8 Ferritin Total Bilirubin Conjugated Bilirubin AST ALT Alkaline Phosphatase C-Reactive Protein Total Protein Albumin 25-OH Vitamin D Total 08/07/21 08/07/21 08/07/21 14:30 12:50 12:50 WBC RBC Hgb Hct MCV MCH MCHC RDW Plt Count MPV Immature Gran % Neutrophils % Lymphocytes % Monocytes % Eosinophils % Basophils % Nucleated RBC % Absolute Neutrophils Absolute Lymphocytes Absolute Monocytes Absolute Eosinophils Absolute Basophils PT INR D-Dimer VBG pH 7.24 L Cancelled VBG pCO2 24 L Cancelled VBG pO2 45 Cancelled VBG HCO3 10 L Cancelled VBG Total CO2 11 L Cancelled VBG O2 Saturation 74 Cancelled VBG Base Excess -17 L Cancelled VBG Lactate Sodium 139 Potassium 3.6 Chloride 107 Carbon Dioxide 15.8 L Anion Gap 16.2 H BUN 7 Creatinine 0.7 Estimated GFR/1.73 m2 >= 60.00 Glucose 153 H D Calcium 7.7 L Phosphorus Magnesium Ferritin Total Bilirubin Conjugated Bilirubin AST ALT Alkaline Phosphatase C-Reactive Protein Total Protein Albumin 25-OH Vitamin D Total 08/07/21 08/07/21 12:50 11:10 WBC RBC Hgb Hct MCV MCH MCHC RDW Plt Count MPV Immature Gran % Neutrophils % Lymphocytes % Monocytes % Eosinophils % Basophils % Nucleated RBC % Absolute Neutrophils Absolute Lymphocytes Absolute Monocytes Absolute Eosinophils Absolute Basophils PT INR D-Dimer VBG pH VBG pCO2 VBG pO2 VBG HCO3 VBG Total CO2 VBG O2 Saturation VBG Base Excess VBG Lactate Sodium 140 141 Potassium 4.1 4.4 Chloride 108 H 108 H Carbon Dioxide 13.7 L 12.1 L Anion Gap 18.3 H 20.9 H BUN 9 11 Creatinine 0.8 0.9 Estimated GFR/1.73 m2 >= 60.00 >= 60.00 Glucose 247 H 228 H D Calcium 7.6 L 7.8 L Phosphorus Magnesium Ferritin Total Bilirubin Conjugated Bilirubin AST ALT Alkaline Phosphatase C-Reactive Protein Total Protein Albumin 25-OH Vitamin D Total PFSH All Active Problems (Updated 08/07/21 @ 15:01 by Kim De Oliveira MD) Discharge planning issues (Acute) DVT prophylaxis (Acute) DKA (diabetic ketoacidosis) (Acute) Hypomagnesemia (Acute) Hypophosphatemia (Acute) Noncompliance with medication regimen (Chronic) COVID-19 (Acute) COVID (Acute) Nausea and vomiting (Acute) Elevated blood pressure affecting in third trimester, antepartum (Acute) Medical History Crohn's disease Type 1 diabetes mellitus [facility] Endo; h/o hospitalizations for DKA Surgical History Colonoscopy - [facility] (03/06/17) Family History Maternal Grandfather Breast cancer Paternal Cousin Diabetes Maternal Grandfather Heart disease Mother Hypertension Social History Smoking/Tobacco Use Status: Never Smoking risk assessment performed?: Yes Alcohol Intake: never Drug use: Daily Substance use type: marijuana Adopted: No Caregiver/Support person: Yes (2 month old sofyaaspen) Household members: significant other, children and other Details: Fianc?: Glenn; 2-month-old (as of May 2020) Housing: house Number of Children: 1 Communication Needs: None Education Level: high school current occupation: 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
--- NOTE | 2021-08-08 12:27 | CMPROGNOTE_ITS ---
- If Service Date Differs Date of service: 08/08/21 Time of Service: 12:27 Care Management Progress Note S/O: Monica was discharged from [facility] on 08/06/21, but was readmitted for DKA again on 08/07/21. Per report, MD would like to monitor Monica overnight, as her DKA has resolved, but she was just recently hospitalized with a similar course, and readmitted the following day. MD feels that this may be driven by her Covid 19 diagnosis. Monica shared concerns with the provider regarding a potentially missed dose of medication, and stated that she does not feel safe here. JR called Monica to discuss her concerns, but she was minimally engaged, and reported that she is leaving the hospital, and nothing that CM or anyone else, could do would matter at this time. She reported that she has been managing her type 1 diabetes for six years, and she normally has it very well controlled. JR asked about her previous admission, and she reported that she did feel ready for discharge, and she felt that she took her insulin too early, which caused DKA, and brought her back to the ED. Monica has a 15 month old daughter at home, and is anticipating being with her again. She is arranging her own transportation, and is leaving [facility] AMA. Several attempts by multiple staff were made to convince her that it w ould be in her best interest to remain hospitalized, but she left AMA regardless. JR received notification from [email or web address] that her Freestyle Precision test strips were not covered by her insurance. JR initiated a PA request for these to be covered. The PA was denied. JR attempted to appeal, but unfortunately a peer to peer review is not available on Monday, so this will have to wait until tomorrow morning. JR informed MD of this finding. A: Monica is a 20 year old female admitted to [facility] on 08/07/21 with DKA, Covid 19. P: Monica left AMA today, after several attempts were made to inform her that the recommendation is for her to remain hospitalized at this time. Monica was driven home via private vehicle by family. She will follow up with her PCP and discharge plan of care. JR will continue to attempt obtaining a PA for the test strips that will fit her CGM on Monday, as the peer to peer review is not available on Monday.
[2021-08-09 02:32] LABS: Vitamin D 25 Total 5.5 ng/mL (30-100)
== END 2021-08-08 10:45 | disposition left against medical advice (07) | DRG 637 ==
LOC: ER 14:39 → ICU 20:49
PROVIDERS: Family Medicine; Admitting Provider Internal Medicine; Emergency Provider Nurse Practitioner Family; Visit Provider Internal Medicine
DX: E10.10 Type 1 diabetes mellitus with ketoacidosis without coma (principal); U07.1 COVID-19; K50.90 Crohn's disease, unspecified, without complications; Z91.14 Patient's other noncompliance with medication regimen; E83.39 Other disorders of phosphorus metabolism; E83.42 Hypomagnesemia
CPT/HCPCS: 36415; 36416; 80048; 80053; 80076; 81025; 82306; 82805; 82962; 93005; 96360; 96361; 96365; 96366; 96368; 99291; 81003; 81015; 82728; 83605; 83735; 84100; 85025; 85379; 85610; 86140; 93010; J3480

== ENCOUNTER 2021-12-19 18:31 | Inpatient (IN) | payer BC, SELFPAY ==
[2021-12-19 18:38] VITALS: BP 133/79; PULSE 89; RESP 18; TEMP 36.8; O2SAT 98
[2021-12-19 18:42] LABS: Abs Immature Grans 0.07 10^3/uL (0.0-0.06); Absolute Basophil Count 0.03 10^3/uL (0.0-0.2); Absolute Lymphocyte Count 0.49 10^3/uL (1.2-3.4); Absolute Monocyte Count 0.62 10^3/uL (0.1-0.8); Basophils % 0.2; Eosinophils % 0.1; HGB 15.1 g/dL (11.2-15.7); Immature Grans % 0.4; MCHC 33.6 % (32.0-36.0); MCV 86 fL (80-95); MPV 10.8 fL (8.0-11.0); Monocytes % 3.8; Neutrophils % 92.5; Platelet Count 527 10^3/uL (130-400); RBC 5.21 10^6/uL (3.93-5.22); RDW 13.4 % (11.7-14.6); RDW-SD 41.8 fL; WBC 16.41 10^3/uL (4.4-10.8)
[2021-12-19 18:43] LABS: Absolute Eosinophil Count 0.02 10^3/uL (0.0-0.7); Absolute Neutrophil Count 15.18 10^3/uL (1.2-6.7)
[2021-12-19 18:58] LABS: BE (Venous) -13 mmol/L (-2-3); HCO3 (Venous) 13 mmol/L (23-28); O2 Sat (Venous) 61 %; TCO2 (Venous) 12 mmol/L (24-29); pCO2 (Venous) 26 mmHg (41-51); pH (Venous) 7.31 (7.31-7.41); pO2 (Venous) 33 mmHg
[2021-12-19 19:15] LABS: ALT 37 U/L (14-59); AST 36 U/L (15-37); Albumin 4.6 g/dL (3.4-5.0); Alkaline Phosphatase 108 U/L (46-116); BUN 19 mg/dL (7-18); Calcium 9.5 mg/dL (8.5-10.1); Chloride 102 mmol/L (98-107); Glucose 345 mg/dL (74-106); Potassium 4.2 mmol/L (3.5-5.1); Sodium 141 mmol/L (136-145); Total Protein 8.9 g/dL (6.4-8.2)
[2021-12-19] MEDS: Ondansetron 4 MG/2 ML VIAL IVP ×2 (19:29→23:15)
[2021-12-19 19:36] LABS: Bilirubin Small (Negative); Blood Moderate (Negative); Clarity Clear (Clear); Glucose 500 mg/dL (Negative); Ketones >=160 mg/dL (Negative); Leukocyte Esterase Negative (Negative); Nitrite Negative (Negative); Specific Gravity >= 1.030 (1.005-1.025); Urobilinogen 0.2 EU/dL (Up TO 0.2); pH 5.5 (5-8)
[2021-12-19] MEDS: Normal Saline 1,000 ML 1000 ML IV (19:39)
[2021-12-19 19:52] LABS: Bacteria Negative HPF (Negative); C & S Indicated? No; Casts Negative LPF (Negative); Crystals Negative HPF (Negative); Epithelial Cells Negative HPF (Negative); Mucus Negative (Negative); Other Cells Negative (Negative); WBC 0-2 HPF (0-5)
[2021-12-19] MEDS: Insulin REGULAR-Human 100 UNITS/ML UNIT 6 UNITS IV (20:02)
--- NOTE | 2021-12-19 20:03 | ED.GENADUL_ITS ---
Discharge Plan Disposition Patient Disposition: [facility] INPATIENT Condition: Stable Discharge Details Clinical Impression: DKA (diabetic ketoacidosis), Nausea and vomiting Admit Date/Time: 12/20/21 16:28 Admit Provider: Regan Wood Attending Provider: Regan Wood Primary Care Provider: Ana Phelps ED Provider: Apryl Mendoza Discharge Data Discharge Date/Time-TO BE ENTERED AT DEPARTURE: 12/19/21 23:06 Medical Decision Making 21-year-old female with a history of type 1 diabetes and Crohn's disease presents with vomiting since 11 AM. EMS reported a glucose of 349. Vitals within normal limits on arrival. Glucose 375 on arrival. She appears uncomfortable and restless in bed but otherwise nontoxic. Moist mucous membranes. Abdomen soft and nontender. No meningeal signs. Suspect DKA. Will place an IV, bolus IV fluids, screening labs, urinalysis, VBG and give fluids and Zofran. Urine test negative. Repeat glucose 393. Labs reviewed. White blood cell count 16 which may be a stress response due to vomiting. VBG notes a pH of 7.3, bicarb of 13. Metabolic panel notes a glucose of 345, bicarb of 13 and anion gap of 26. Urinalysis notes ketones. 6 units of insulin and insulin drip ordered. Case discussed with hospitalist who accepts patient for admission. Patient is agreeable with plan for admission. Medical Records Medical records reviewed: Yes I reviewed the patient's medical records. Lab Data Lab results reviewed: Yes I reviewed the patient's lab results. Labs: Laboratory Tests Range/Units 12/19/21 12/19/21 12/19/21 02:15 18:33 18:33 WBC (4.4-10.8) 10^3/uL 16.41 H RBC (3.93-5.22) 10^6/uL 5.21 Hgb (11.2-15.7) g/dL 15.1 Hct (36.0-46.0) % 45.0 MCV (80-95) fL 86 MCH (27.0-33.0) pg 29.0 MCHC (32.0-36.0) % 33.6 RDW (11.7-14.6) % 13.4 Plt Count (130-400) 10^3/uL 527 H MPV (8.0-11.0) fL 10.8 Immature Gran % 0.4 Neutrophils % 92.5 Lymphocytes % 3.0 Monocytes % 3.8 Eosinophils % 0.1 Basophils % 0.2 Nucleated RBC % (0.0-0.3) % 0.0 Absolute Neutrophils (1.2-6.7) 10^3/uL 15.18 H Absolute Lymphocytes (1.2-3.4) 10^3/uL 0.49 L Absolute Monocytes (0.1-0.8) 10^3/uL 0.62 Absolute Eosinophils (0.0-0.7) 10^3/uL 0.02 Absolute Basophils (0.0-0.2) 10^3/uL 0.03 VBG pH (7.31-7.41) VBG pCO2 (41-51) mmHg VBG pO2 mmHg VBG HCO3 (23-28) mmol/L VBG Total CO2 (24-29) mmol/L VBG O2 Saturation % VBG Base Excess (-2-3) mmol/L Sodium Cancelled 141 Potassium Cancelled 4.2 Chloride Cancelled 102 Carbon Dioxide Cancelled 13.0 L Anion Gap Cancelled 26.0 H BUN (7-18) mg/dL 19 H Creatinine (0.55-1.02) mg/dL 1.0 Estimated GFR/1.73 m2 (mL/min/1.73m2) >= 60.00 Glucose (74-106) mg/dL 345 H Hemoglobin A1c (<5.7) % Calcium (8.5-10.1) mg/dL 9.5 Phosphorus (2.6-4.7) mg/dL Magnesium (1.8-2.4) mg/dL Total Bilirubin (0.2-1.0) mg/dL 1.0 AST (15-37) U/L 36 ALT (14-59) U/L 37 Alkaline Phosphatase (46-116) U/L 108 Total Protein (6.4-8.2) g/dL 8.9 H Albumin (3.4-5.0) g/dL 4.6 Procalcitonin ng/mL Urine Color (Yellow) Urine Clarity (Clear) Urine pH (5-8) Ur Specific [place] (1.005-1.025) Urine Protein (Negative) mg/dL Urine Ketones (Negative) mg/dL Urine Blood (Negative) Urine Nitrite (Negative) Urine Bilirubin (Negative) Urine Urobilinogen (Up TO 0.2) EU/dL Ur Leukocyte Esterase (Negative) Urine RBC (0-2) HPF Urine WBC (0-5) HPF Ur Epithelial Cells (Negative) HPF Urine Crystals (Negative) HPF Urine Bacteria (Negative) HPF Urine Casts (Negative) LPF Urine Mucus (Negative) Urine Other (Negative) Ur Culture Indicated? Urine Glucose (Negative) mg/dL COVID-19 Source SARS-CoV-2 (PCR) (Negative) Add-On Test Request Range/Units 12/19/21 12/19/21 12/19/21 18:33 18:43 20:19 WBC (4.4-10.8) 10^3/uL RBC (3.93-5.22) 10^6/uL Hgb (11.2-15.7) g/dL Hct (36.0-46.0) % MCV (80-95) fL MCH (27.0-33.0) pg MCHC (32.0-36.0) % RDW (11.7-14.6) % Plt Count (130-400) 10^3/uL MPV (8.0-11.0) fL Immature Gran % Neutrophils % Lymphocytes % Monocytes % Eosinophils % Basophils % Nucleated RBC % (0.0-0.3) % Absolute Neutrophils (1.2-6.7) 10^3/uL Absolute Lymphocytes (1.2-3.4) 10^3/uL Absolute Monocytes (0.1-0.8) 10^3/uL Absolute Eosinophils (0.0-0.7) 10^3/uL Absolute Basophils (0.0-0.2) 10^3/uL VBG pH (7.31-7.41) 7.31 VBG pCO2 (41-51) mmHg 26 L VBG pO2 mmHg 33 VBG HCO3 (23-28) mmol/L 13 L VBG Total CO2 (24-29) mmol/L 12 L VBG O2 Saturation % 61 VBG Base Excess (-2-3) mmol/L -13 L Sodium Potassium Chloride Carbon Dioxide Anion Gap BUN (7-18) mg/dL Creatinine (0.55-1.02) mg/dL Estimated GFR/1.73 m2 (mL/min/1.73m2) Glucose (74-106) mg/dL Hemoglobin A1c (<5.7) % Calcium (8.5-10.1) mg/dL Phosphorus (2.6-4.7) mg/dL Magnesium (1.8-2.4) mg/dL Total Bilirubin (0.2-1.0) mg/dL AST (15-37) U/L ALT (14-59) U/L Alkaline Phosphatase (46-116) U/L Total Protein (6.4-8.2) g/dL Albumin (3.4-5.0) g/dL Procalcitonin ng/mL Urine Color (Yellow) Yellow Urine Clarity (Clear) Clear Urine pH (5-8) 5.5 Ur Specific [place] (1.005-1.025) >= 1.030 H Urine Protein (Negative) mg/dL >=300 H Urine Ketones (Negative) mg/dL >=160 H Urine Blood (Negative) Moderate H Urine Nitrite (Negative) Negative Urine Bilirubin (Negative) Small H Urine Urobilinogen (Up TO 0.2) EU/dL 0.2 Ur Leukocyte Esterase (Negative) Negative Urine RBC (0-2) HPF 3-5 H Urine WBC (0-5) HPF 0-2 Ur Epithelial Cells (Negative) HPF Negative Urine Crystals (Negative) HPF Negative Urine Bacteria (Negative) HPF Negative Urine Casts (Negative) LPF Negative Urine Mucus (Negative) Negative Urine Other (Negative) Negative Ur Culture Indicated? No Urine Glucose (Negative) mg/dL 500 H COVID-19 Source Nasal/Nares SARS-CoV-2 (PCR) (Negative) Negative Add-On Test Request HPI General Mode of arrival: EMS . Date/Time Provider Initiated Documentation: 12/19/21 19:12 . Limitations to Documentation: no limitations . Information obtained by: patient . HPI Narrative: Patient is a 21-year-old female with a history of type 1 diabetes and Crohn's disease who presents with vomiting since 11 AM with concern for DKA. EMS reported a blood sugar of 349 and remainder of her vitals were within normal limits. Patient states she has been vomiting every 10 minutes which has been mainly bile since 11 AM. She denies any recent illness including fever, sore throat, ear pain, chest pain, shortness of breath, abdominal pain, diarrhea or urinary symptoms. Patient reported to take Levemir last night and 5 units of her Humalog today. Related Data Home Medications Medication Instructions Recorded Confirmed pen needle, diabetic 32 gauge x #100 ea 05/20/20 05/25/2032 (BD Ultra-Fine Gissel Pen Needle) pen needle, diabetic 32 gauge x #100 ea 05/20/20 05/25/2032 (BD Ultra-Fine Gissel Pen Needle) flash glucose scanning reader #1 ea 07/03/20 (FreeStyle Leyla 2 Richardson) insulin lispro 100 unit/mL 1 - 30 unit (0.01 - 0.3 mL) SC .AC 09/17/20 12/19/21 subcutaneous pen (Humalog KwikPen (4-5 times daily) #45 syrg MDD 150 (U-100) Insulin) units flash glucose sensor (FreeStyle #6 ea 08/06/21 Leyla 14 Day Sensor) blood sugar diagnostic (FreeStyle #50 ea 08/08/21 Precision Elijah Strips) insulin degludec 100 unit/mL (3 42 unit SUBCUT HS 12/21/21 12/21/21 mL) subcutaneous pen (Tresiba FlexTouch U-100 insulin) Previous Rx's Medication Instructions Recorded pen needle, diabetic 32 gauge x #100 ea 05/20/2032 (BD Ultra-Fine Gissel Pen Needle) pen needle, diabetic 32 gauge x #100 ea 05/20/2032 (BD Ultra-Fine Gissel Pen Needle) flash glucose scanning reader #1 ea 07/03/20 (FreeStyle Leyla 2 Richardson) insulin lispro 100 unit/mL 1 - 30 unit (0.01 - 0.3 mL) SC .AC 09/17/20 subcutaneous pen (Humalog KwikPen (4-5 times daily) #45 syrg MDD 150 (U-100) Insulin) units flash glucose sensor (FreeStyle #6 ea 08/06/21 Leyla 14 Day Sensor) blood sugar diagnostic (FreeStyle #50 ea 08/08/21 Precision Elijah Strips) Allergies Allergy/AdvReac Type Severity Reaction Status Date / Time No Known Allergies Allergy Verified 12/19/21 18:41 General Stated Complaint: Diabetes CHACHA: 3 Review of Systems All systems reviewed & are unremarkable except as noted in HPI and below Constitutional Constitutional: Denies chills, Denies excessive sweating, Denies fatigue, Denies fever(s), Denies weakness and Denies weight loss Eyes Eyes: Reports system reviewed and no additional complaints, except as documented and Denies blurry vision ENT Ears, Nose, Mouth, and Throat: Denies vertigo, Denies dizziness, Denies otalgia, Denies nasal congestion, Denies sore throat and Denies throat swelling Cardiovascular Cardiovascular: Denies chest pain, Denies syncope, Denies rapid heart rate and Denies dyspnea Respiratory Respiratory: Denies chest congestion, Denies cough, Denies pain on inspiration and Denies dyspnea Gastrointestinal Gastrointestinal: Denies abdominal pain, Denies diarrhea and Reports vomiting Genitourinary Genitourinary: Denies hematuria, Denies dysuria and Denies flank pain Musculoskeletal Musculoskeletal: Denies back pain and Denies joint swelling Integumentary/Breasts Skin/Breast: Denies lesions and Denies rash Neurologic Neurologic: Denies behavioral changes, Denies confusion, Denies vertigo, Denies dizziness, Denies syncope, Denies localized weakness and Denies weakness Psychiatric Psychiatric: Denies behavioral changes, Denies confusion and Denies depression Endocrine Endocrine: Denies excessive sweating and Denies fatigue Hematologic/Lymphatic Hematologic/Lymphatic: Denies easy bruising and Denies lymphadenopathy Allergic/Immunologic Allergic/Immunologic: Denies throat swelling PFSH All Active Problems (Updated 12/21/21 @ 09:31 by Apryl Mendoza DO) Hypomagnesemia (Acute) Leukocytosis (Acute) DKA (diabetic ketoacidosis) (Acute) Discharge planning issues (Acute) DVT prophylaxis (Acute) Hypophosphatemia (Acute) Noncompliance with medication regimen (Chronic) Nausea and vomiting (Acute) Elevated blood pressure affecting in third trimester, antepartum (Acute) Medical History (Updated 12/21/21 @ 09:31 by Apryl Mendoza DO) COVID COVID-19 Crohn's disease DKA (diabetic ketoacidosis) Hypokalemia Hypomagnesemia Type 1 diabetes mellitus [facility] [place] Endo; h/o hospitalizations for DKA Surgical History Colonoscopy - [facility] (03/06/17) Family History Maternal Grandfather Breast cancer Paternal Cousin Diabetes Maternal Grandfather Heart disease Mother Hypertension Social History Smoking/Tobacco Use Status: Never Smoking risk assessment performed?: Yes Alcohol Intake: never Drug use: Daily Substance use type: marijuana Adopted: No Caregiver/Support person: Yes (2 month old ricardo) Household members: significant other, children and other Details: Fianc?: Glenn; 2-month-old (as of May 2020) Housing: house Number of Children: 1 Communication Needs: None Education Level: high school current occupation: [employer] Pets and animals: Yes Pets and animals: dog(s) Sexually active: Yes Do you think of yourself as: straight/heterosexual Current gender identity: female What is your relationship status?: living with partner Panel score (0-1 are the most socially isolated patients): 1 What type of physical activity do you participate in: walking Seatbelt use: always Helmet use: Yes 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 Working smoke detector in home: Yes Fire extinguisher in home: No Carbon monox detector in home: Yes Firearms in home: No Do you feel safe at home: Yes Do you feel safe in your relationship?: Yes Victim of physical abuse: No Victim of emotional abuse: No Victim of sexual abuse: No Female Reproductive History Menstrual Age of Menarche: 10 Duration of menses: 3-5 days control method: pills History History 1 Para 0 Hx # Term Pregnancies 0 Multiple births 0 Hx # Pregnancies 0 Ectopic pregnancies 0 AB induced 0 Hx Number of Living Children 0 AB spontaneous 0 Exam Const General: cooperative and in distress mild (nausea, tachypneic) Orientation: alert, awake and oriented x3 HENMT Head: normal to inspection Ears: hearing grossly normal bilaterally and external ears normal General nose exam: external nose normal Face and sinus: normal facial exam Mouth: oral mucosae normal Teeth and gingiva: poor dentition Throat: posterior oropharynx normal Eyes General: appearance normal, both eyes and all related structures Eyelids: eyelids normal Pupils: PERRL EOM: EOM intact bilaterally Neck Neck: normal visual inspection Lymphatic: no lymphadenopathy noted Chest Chest: normal inspection of the chest Resp Effort & Inspection: normal respiratory effort and able to speak in complete sentences Auscultation: clear to auscultation bilaterally Cardio Rate: regular rate Rhythm: regular rhythm GI Inspection: normal to inspection Palpation: soft, not firm, no guarding, no hepatosplenomegaly, no masses and nontender Auscultation: hypoactive bowel sounds Back/Spine/Pelvis Back: no CVA tenderness Skin General skin exam: no rashes or lesions noted Neuro General: patient alert and patient awake Cognition: normal cognition Speech: speech normal Gait: normal gait Motor: muscle tone normal throughout Sensory Exam: no sensory deficits noted Extrem General: normal to inspection, full ROM and capillary refill normal Psych Appearance: grossly normal Mental Status: mental status grossly normal Speech and Movement: speech and movement normal Affect: normal affect Thought Process: normal Course Vital Signs Vital signs: Vital Signs Temperature 98.3 F 12/19/21 18:38 Pulse 89 12/19/21 18:38 Respiratory Rate 18 12/19/21 18:38 Blood Pressure 133/79 12/19/21 18:38 Pulse Oximetry 98 12/19/21 18:38 Temperature 98.3 F 12/19/21 18:38 Temperature Source Oral 12/19/21 18:38 Pulse 89 12/19/21 18:38 Respiratory Rate 18 12/19/21 18:38 Respiratory Effort 12/19/21 18:47 Blood Pressure 133/79 12/19/21 18:38 Blood Pressure Position Supine 12/19/21 18:38 Pulse Oximetry 98 12/19/21 18:38 Oxygen Delivery Method Room Air 12/19/21 18:38 Oxygen Flow Rate 0 12/19/21 18:38 Pain Level 0 12/19/21 18:38 Lab/Test Results Lab/Test Results: Laboratory Tests Range/Units 12/19/21 12/19/21 12/19/21 18:33 18:33 18:33 WBC (4.4-10.8) 10^3/uL 16.41 H RBC (3.93-5.22) 10^6/uL 5.21 Hgb (11.2-15.7) g/dL 15.1 Hct (36.0-46.0) % 45.0 MCV (80-95) fL 86 MCH (27.0-33.0) pg 29.0 MCHC (32.0-36.0) % 33.6 RDW (11.7-14.6) % 13.4 Plt Count (130-400) 10^3/uL 527 H MPV (8.0-11.0) fL 10.8 Immature Gran % 0.4 Neutrophils % 92.5 Lymphocytes % 3.0 Monocytes % 3.8 Eosinophils % 0.1 Basophils % 0.2 Nucleated RBC % (0.0-0.3) % 0.0 Absolute Neutrophils (1.2-6.7) 10^3/uL 15.18 H Absolute Lymphocytes (1.2-3.4) 10^3/uL 0.49 L Absolute Monocytes (0.1-0.8) 10^3/uL 0.62 Absolute Eosinophils (0.0-0.7) 10^3/uL 0.02 Absolute Basophils (0.0-0.2) 10^3/uL 0.03 VBG pH (7.31-7.41) 7.31 VBG pCO2 (41-51) mmHg 26 L VBG pO2 mmHg 33 VBG HCO3 (23-28) mmol/L 13 L VBG Total CO2 (24-29) mmol/L 12 L VBG O2 Saturation % 61 VBG Base Excess (-2-3) mmol/L -13 L Sodium (136-145) mmol/L 141 Potassium (3.5-5.1) mmol/L 4.2 Chloride (98-107) mmol/L 102 Carbon Dioxide (21.0-32.0) mmol/L 13.0 L Anion Gap (3-11) mmol/L 26.0 H BUN (7-18) mg/dL 19 H Creatinine (0.55-1.02) mg/dL 1.0 Estimated GFR/1.73 m2 (mL/min/1.73m2) >= 60.00 Glucose (74-106) mg/dL 345 H Calcium (8.5-10.1) mg/dL 9.5 Total Bilirubin (0.2-1.0) mg/dL 1.0 AST (15-37) U/L 36 ALT (14-59) U/L 37 Alkaline Phosphatase (46-116) U/L 108 Total Protein (6.4-8.2) g/dL 8.9 H Albumin (3.4-5.0) g/dL 4.6 Urine Color (Yellow) Urine Clarity (Clear) Urine pH (5-8) Ur Specific [place] (1.005-1.025) Urine Protein (Negative) mg/dL Urine Ketones (Negative) mg/dL Urine Blood (Negative) Urine Nitrite (Negative) Urine Bilirubin (Negative) Urine Urobilinogen (Up TO 0.2) EU/dL Ur Leukocyte Esterase (Negative) Urine RBC (0-2) HPF Urine WBC (0-5) HPF Ur Epithelial Cells (Negative) HPF Urine Crystals (Negative) HPF Urine Bacteria (Negative) HPF Urine Casts (Negative) LPF Urine Mucus (Negative) Urine Other (Negative) Ur Culture Indicated? Urine Glucose (Negative) mg/dL Range/Units 12/19/21 18:43 WBC (4.4-10.8) 10^3/uL RBC (3.93-5.22) 10^6/uL Hgb (11.2-15.7) g/dL Hct (36.0-46.0) % MCV (80-95) fL MCH (27.0-33.0) pg MCHC (32.0-36.0) % RDW (11.7-14.6) % Plt Count (130-400) 10^3/uL MPV (8.0-11.0) fL Immature Gran % Neutrophils % Lymphocytes % Monocytes % Eosinophils % Basophils % Nucleated RBC % (0.0-0.3) % Absolute Neutrophils (1.2-6.7) 10^3/uL Absolute Lymphocytes (1.2-3.4) 10^3/uL Absolute Monocytes (0.1-0.8) 10^3/uL Absolute Eosinophils (0.0-0.7) 10^3/uL Absolute Basophils (0.0-0.2) 10^3/uL VBG pH (7.31-7.41) VBG pCO2 (41-51) mmHg VBG pO2 mmHg VBG HCO3 (23-28) mmol/L VBG Total CO2 (24-29) mmol/L VBG O2 Saturation % VBG Base Excess (-2-3) mmol/L Sodium (136-145) mmol/L Potassium (3.5-5.1) mmol/L Chloride (98-107) mmol/L Carbon Dioxide (21.0-32.0) mmol/L Anion Gap (3-11) mmol/L BUN (7-18) mg/dL Creatinine (0.55-1.02) mg/dL Estimated GFR/1.73 m2 (mL/min/1.73m2) Glucose (74-106) mg/dL Calcium (8.5-10.1) mg/dL Total Bilirubin (0.2-1.0) mg/dL AST (15-37) U/L ALT (14-59) U/L Alkaline Phosphatase (46-116) U/L Total Protein (6.4-8.2) g/dL Albumin (3.4-5.0) g/dL Urine Color (Yellow) Yellow Urine Clarity (Clear) Clear Urine pH (5-8) 5.5 Ur Specific [place] (1.005-1.025) >= 1.030 H Urine Protein (Negative) mg/dL >=300 H Urine Ketones (Negative) mg/dL >=160 H Urine Blood (Negative) Moderate H Urine Nitrite (Negative) Negative Urine Bilirubin (Negative) Small H Urine Urobilinogen (Up TO 0.2) EU/dL 0.2 Ur Leukocyte Esterase (Negative) Negative Urine RBC (0-2) HPF 3-5 H Urine WBC (0-5) HPF 0-2 Ur Epithelial Cells (Negative) HPF Negative Urine Crystals (Negative) HPF Negative Urine Bacteria (Negative) HPF Negative Urine Casts (Negative) LPF Negative Urine Mucus (Negative) Negative Urine Other (Negative) Negative Ur Culture Indicated? No Urine Glucose (Negative) mg/dL 500 H POC- Test(urine) Negative
[2021-12-19] MEDS: INSULIN REGULAR IN 0.9 % NACL 100 UNIT/100 ML BAG 6.124 UNIT IV (20:05)
--- NOTE | 2021-12-19 20:18 | HPE_ITS ---
Date of service: 12/19/21 Time of Service: 20:18 Assessment and Plan Assessment and plan (1) DKA (diabetic ketoacidosis): Status: Acute Assessment and plan: DKA. No specific precipitant evident, the nausea and vomiting is more likely than not a sign of the DKA itself, though nonspecific gastroenteritis possible. No findings to suggest specific infection. Substantial AG noted, though pH is relatively well compensated at present. Will continue IVF and insulin qtt per protocol. Will not add K at present, will trend electrolytes q2H for now. Note admission 08/03 for DKA in setting of symptomatic COVID. Covid pending at this time, but patient has no respiratory symptoms. History of Present Illness History of Present Illness Chief Complaint: nausea and vomiting Narrative: 21 female with h/o type 1 DM, h/o DKA presenting typically with same, a;lso h/o non-compliance (She states she has taken her usual dose of basal insulin). Here with one day of nausea and vomiting. No abd pain, no diarrhea. Otherwise feels her usual self except does note some soreness in her throat which she ascribes to repeated episodes of vomiting. No fever or swollen glands in neck. Here in ER findings of note for white count 16, glucose 345, HCO3 13, pH 7.31, AG 26, K 4.2 and positive ketones in urine. Has received 1500 cc fluid, 6 units regular insulin and started on drip per protocol, and Zofran 4. States she feels entirely well at present. I was asked to evaluate for admission. Review of Systems Narrative: per HPI PFSH All Active Problems Discharge planning issues (Acute) DVT prophylaxis (Acute) DKA (diabetic ketoacidosis) (Acute) Hypomagnesemia (Acute) Hypophosphatemia (Acute) Noncompliance with medication regimen (Chronic) COVID-19 (Acute) COVID (Acute) Nausea and vomiting (Acute) Elevated blood pressure affecting in third trimester, antepartum (Acute) Medical History Crohn's disease Type 1 diabetes mellitus [facility] [place] [facility] Endo; h/o hospitalizations for DKA Surgical History Colonoscopy - MAC (03/06/17) Family History Maternal Grandfather Breast cancer Paternal Cousin Diabetes Maternal Grandfather Heart disease Mother Hypertension Social History Smoking/Tobacco Use Status: Never Smoking risk assessment performed?: Yes Alcohol Intake: never Drug use: Daily Substance use type: marijuana Adopted: No Caregiver/Support person: Yes (2 month old ricardo) Household members: significant other, children and other Details: Fianc?: Glenn; 2-month-old (as of May 2020) Housing: house Number of Children: 1 Communication Needs: None Education Level: high school current occupation: [employer] Pets and animals: Yes Pets and animals: dog(s) Sexually active: Yes Do you think of yourself as: straight/heterosexual Current gender identity: female What is your relationship status?: living with partner Panel score (0-1 are the most socially isolated patients): 1 What type of physical activity do you participate in: walking Seatbelt use: always Helmet use: Yes 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 Working smoke detector in home: Yes Fire extinguisher in home: No Carbon monox detector in home: Yes Firearms in home: No Do you feel safe at home: Yes Do you feel safe in your relationship?: Yes Victim of physical abuse: No Victim of emotional abuse: No Victim of sexual abuse: No Female Reproductive History Menstrual Age of Menarche: 10 Duration of menses: 3-5 days control method: pills History History 1 Para 0 Hx # Term Pregnancies 0 Multiple births 0 Hx # Pregnancies 0 Ectopic pregnancies 0 AB induced 0 Hx Number of Living Children 0 AB spontaneous 0 Meds Allergies and Home Medications Allergies Allergy/AdvReac Type Severity Reaction Status Date / Time No Known Allergies Allergy Verified 12/19/21 18:41 Home Medications Medication Instructions Recorded Confirmed Type pen needle, diabetic 32 gauge x #100 ea 05/20/20 05/25/20 Rx 532 (BD Ultra-Fine Gissel Pen Needle) pen needle, diabetic 32 gauge x #100 ea 05/20/20 05/25/20 Rx 32 (BD Ultra-Fine Gissel Pen Needle) flash glucose scanning reader #1 ea 07/03/20 Rx (FreeStyle Leyla 2 [place]) insulin lispro 100 unit/mL 1 - 30 unit (0.01 - 0.3 mL) SC .AC 09/17/20 12/19/21 Rx subcutaneous pen (Humalog KwikPen (4-5 times daily) #45 syrg MDD 150 (U-100) Insulin) units flash glucose sensor (FreeStyle #6 ea 08/06/21 Rx Leyla 14 Day Sensor) blood sugar diagnostic (FreeStyle #50 ea 08/08/21 Rx Precision Elijah Strips) insulin detemir U-100 100 unit/mL 42 unit SUBCUT HS 12/19/21 12/19/21 History (3 mL) subcutaneous pen (Levemir FlexTouch U-100 Insulin) Exam Narrative Exam Narrative: 133/79, 89, 36.8, 18, 98% RA. HEENT throat sliught generalized erythema, no exudate; neck supple, no adenopathy; lungs clear; heart RRR; abdomen soft and NT; extremities w/o edema; neuro Ox3, lucid, moves all 4s Results Labs Result diagrams: 12/19/21 18:33 12/19/21 18:33 Labs: Laboratory Results - last 24 hr 12/19/21 12/19/21 12/19/21 18:33 18:33 18:33 WBC 16.41 H RBC 5.21 Hgb 15.1 Hct 45.0 MCV 86 MCH 29.0 MCHC 33.6 RDW 13.4 Plt Count 527 H MPV 10.8 Immature Gran % 0.4 Neutrophils % 92.5 Lymphocytes % 3.0 Monocytes % 3.8 Eosinophils % 0.1 Basophils % 0.2 Nucleated RBC % 0.0 Absolute Neutrophils 15.18 H Absolute Lymphocytes 0.49 L Absolute Monocytes 0.62 Absolute Eosinophils 0.02 Absolute Basophils 0.03 VBG pH 7.31 VBG pCO2 26 L VBG pO2 33 VBG HCO3 13 L VBG Total CO2 12 L VBG O2 Saturation 61 VBG Base Excess -13 L Sodium 141 Potassium 4.2 Chloride 102 Carbon Dioxide 13.0 L Anion Gap 26.0 H BUN 19 H Creatinine 1.0 Estimated GFR/1.73 m2 >= 60.00 Glucose 345 H Calcium 9.5 Total Bilirubin 1.0 AST 36 ALT 37 Alkaline Phosphatase 108 Total Protein 8.9 H Albumin 4.6 Urine Color Urine Clarity Urine pH Ur Specific [place] Urine Protein Urine Ketones Urine Blood Urine Nitrite Urine Bilirubin Urine Urobilinogen Ur Leukocyte Esterase Urine RBC Urine WBC Ur Epithelial Cells Urine Crystals Urine Bacteria Urine Casts Urine Mucus Urine Other Ur Culture Indicated? Urine Glucose 12/19/21 18:43 WBC RBC Hgb Hct MCV MCH MCHC RDW Plt Count MPV Immature Gran % Neutrophils % Lymphocytes % Monocytes % Eosinophils % Basophils % Nucleated RBC % Absolute Neutrophils Absolute Lymphocytes Absolute Monocytes Absolute Eosinophils Absolute Basophils VBG pH VBG pCO2 VBG pO2 VBG HCO3 VBG Total CO2 VBG O2 Saturation VBG Base Excess Sodium Potassium Chloride Carbon Dioxide Anion Gap BUN Creatinine Estimated GFR/1.73 m2 Glucose Calcium Total Bilirubin AST ALT Alkaline Phosphatase Total Protein Albumin Urine Color Yellow Urine Clarity Clear Urine pH 5.5 Ur Specific [place] >= 1.030 H Urine Protein >=300 H Urine Ketones >=160 H Urine Blood Moderate H Urine Nitrite Negative Urine Bilirubin Small H Urine Urobilinogen 0.2 Ur Leukocyte Esterase Negative Urine RBC 3-5 H Urine WBC 0-2 Ur Epithelial Cells Negative Urine Crystals Negative Urine Bacteria Negative Urine Casts Negative Urine Mucus Negative Urine Other Negative Ur Culture Indicated? No Urine Glucose 500 H Last Vital Signs Temp 36.8 C 12/19/21 18:38 Pulse 89 12/19/21 18:38 Resp 18 12/19/21 18:38 BP 133/79 12/19/21 18:38 Pulse Ox 98 12/19/21 18:38
[2021-12-19 20:27] LABS: Source Nasal/Nares
[2021-12-19 21:12] VITALS: BP 136/80; PULSE 82; RESP 16; TEMP 36.9; O2SAT 98
[2021-12-19 21:24] LABS: COVID-19 PCR Negative (Negative)
[2021-12-19 22:10] VITALS: TEMP 36.5
[2021-12-19 22:17] LABS: Anion Gap 18.1 mmol/L (3-11); CO2 15.9 mmol/L (21.0-32.0); Chloride 107 mmol/L (98-107); Sodium 141 mmol/L (136-145)
[2021-12-19 22:40] VITALS: BP 160/96; PULSE 135; RESP 26; O2SAT 98
[2021-12-19 22:53] LABS: BE (Venous) -13 mmol/L (-2-3); HCO3 (Venous) 12 mmol/L (23-28); O2 Sat (Venous) 79 %; TCO2 (Venous) 11 mmol/L (24-29); pCO2 (Venous) 20 mmHg (41-51); pH (Venous) 7.38 (7.31-7.41); pO2 (Venous) 42 mmHg
--- NOTE | 2021-12-19 22:55 | RT.EKG_ITS ---
APPROVED REPORT Exam: Resting ECG Reason for Exam: chest pain Patient Location: I HR:111 bpm ECG Measurements Heart Rate 111 AXIS NM 121 P 73 QRSd 101 QRS 62 QT 392 T 52 QTc 533 Conclusion Sinus tachycardia...rate> 99 Prolonged QT interval...QTc >495mS
[2021-12-19] MEDS: LORazepam 2 MG/ML VIAL 1 MG IVP (22:56)
[2021-12-19 23:00] VITALS: BP 149/82; PULSE 106; RESP 20; O2SAT 99
[2021-12-19 23:03] LABS: Anion Gap 23.9 mmol/L (3-11); BUN 17 mg/dL (7-18); CO2 13.1 mmol/L (21.0-32.0); CREATININE 0.9 mg/dL (0.55-1.02); Calcium 9.4 mg/dL (8.5-10.1); Chloride 105 mmol/L (98-107); Glucose 270 mg/dL (74-106); Sodium 142 mmol/L (136-145)
[2021-12-19 23:23] VITALS: BP 145/93; PULSE 112; PULSE 113; RESP 23; O2SAT 100
[2021-12-20] VITALS (41 sets, daily range): BP systolic 104–142; BP diastolic 59–87; PULSE 69–120; RESP 8–23; TEMP 36.4–36.7; O2SAT 97–98
[2021-12-20] MEDS: DEXTROSE 5%-0.9% SALINE 1,000 ML 150 ML IV (01:30)
[2021-12-20 03:22] LABS: Anion Gap 18.2 mmol/L (3-11); CO2 15.8 mmol/L (21.0-32.0); Chloride 108 mmol/L (98-107); Potassium 3.9 mmol/L (3.5-5.1); Sodium 142 mmol/L (136-145)
[2021-12-20] MEDS: POTASSIUM CHLORIDE/D5-0.9%NACL 1,000 ML 250 MEQ IV (03:31)
[2021-12-20 06:51] LABS: Anion Gap 13.3 mmol/L (3-11); CO2 18.7 mmol/L (21.0-32.0); Chloride 109 mmol/L (98-107); Potassium 4.1 mmol/L (3.5-5.1); Sodium 141 mmol/L (136-145)
--- NOTE | 2021-12-20 07:17 | W.PULMCC ---
General Date of Service Date of service: 12/20/21 Time of Service: 07:17 Assessment and Plan Assessment and plan (1) DKA (diabetic ketoacidosis): Status: Acute (2) Hypophosphatemia: Status: Acute (3) Noncompliance with medication regimen: Status: Chronic (4) Nausea and vomiting: Status: Acute (5) Leukocytosis: Status: Acute Assessment and plan: This is a 21 yo female with Type 1 diabetes who is admitted with DKA. There was no obvious pathologic reasons for her DKA and she has had a negative UA. Her GAP is essentially closed and her bicarb is 18. She needs to get subcutaneous insulin this morning - although this should be given to all DKA patients on admission, not just when ready to stop the insulin drip - and she does need to tolerate food before the drip can be discontinued. She has Zofran for nausea. Recommendations Pulmonary: No acute concerns Cardiac: No acute concerns Renal: No acute concerns I&O: Intake & Output 12/17/21 12/18/21 12/19/21 12/20/21 23:59 23:59 23:59 23:59 Intake Total 1007.692 / 1307.692 610.644 / 610.644 Output Total 700 / 700 Balance 307.692 / 607.692 610.644 / 610.644 Weight 56 kg Daily Fluid Goal:: Even GI Nutrition: Ok to start diet as tolerated Date of Last Bowel Movement: 12/19/21 Infectious Disease: No acute concerns Hematologic: Leukocytosis - likely reactive Neurologic: No acute concerns Endocrine: DKA - recommend Lantus now - reduced dose as she will take her home insulin regimen this evening - SSI to cover - recommend discontinuing all drips once able to eat and after receiving her Lantus - no further IVF are needed Lines: PIV Prophylaxis: DVT ppx recommended - Lovenox or heparin would be appropriate if she is not being discharged today Code Status: Resuscitation Status Full Code Subjective Critical and life-threatening events over the past 24 hours: This is a 21 yo female with T1DM who is admitted for DKA. She has had episodes of DKA in the past due to non-compliance. Her UA was clear and she does not have any obvious inciting pathology for the DKA. She was having significant vomiting and nausea on admission. She was started on DKA insulin drip protocol. Today she states that she is feeling much better than when she first came in. She is anxious to get home. She remains on the insulin drip and did not receive and subq insulin on admission. She typically takes her insulin at night and does not have anyone that can bring in her long acting insulin today as they are working. Exam Narrative Exam Narrative: Gen: NAD, normal respiratory effort, well-nourished HENT: PERRL, nasal turbinates normal without erythema or inflammation, moist oral mucosa, Mallampati 2, No LAD or JVD Chest: No respiratory distress, normal appearance of chest, clear to auscultation bilaterally, no crackles or wheezes, normal inspiratory effort Heart: regular rate and rhythym, no murmurs, rubs or gallops Abdomen: Non-distended, soft, non tender Extremities: No clubbing, edema, cyanosis, rashes Neuro: AAOx3 , non focal Psych: cooperative, appropriate mental affect Most Recent VS/Results Last Vital Signs Temp 36.6 C 12/20/21 04:00 Pulse 90 12/20/21 06:00 Resp 20 12/20/21 06:00 BP 116/67 12/20/21 06:00 Pulse Ox 98 12/20/21 04:00 Laboratory Results - last 24 hr 12/19/21 12/19/21 12/19/21 02:15 18:33 18:33 WBC 16.41 H RBC 5.21 Hgb 15.1 Hct 45.0 MCV 86 MCH 29.0 MCHC 33.6 RDW 13.4 Plt Count 527 H MPV 10.8 Immature Gran % 0.4 Neutrophils % 92.5 Lymphocytes % 3.0 Monocytes % 3.8 Eosinophils % 0.1 Basophils % 0.2 Nucleated RBC % 0.0 Absolute Neutrophils 15.18 H Absolute Lymphocytes 0.49 L Absolute Monocytes 0.62 Absolute Eosinophils 0.02 Absolute Basophils 0.03 VBG pH VBG pCO2 VBG pO2 VBG HCO3 VBG Total CO2 VBG O2 Saturation VBG Base Excess Sodium Cancelled 141 Potassium Cancelled 4.2 Chloride Cancelled 102 Carbon Dioxide Cancelled 13.0 L Anion Gap Cancelled 26.0 H BUN 19 H Creatinine 1.0 Estimated GFR/1.73 m2 >= 60.00 Glucose 345 H Calcium 9.5 Total Bilirubin 1.0 AST 36 ALT 37 Alkaline Phosphatase 108 Total Protein 8.9 H Albumin 4.6 Urine Color Urine Clarity Urine pH Ur Specific [place] Urine Protein Urine Ketones Urine Blood Urine Nitrite Urine Bilirubin Urine Urobilinogen Ur Leukocyte Esterase Urine RBC Urine WBC Ur Epithelial Cells Urine Crystals Urine Bacteria Urine Casts Urine Mucus Urine Other Ur Culture Indicated? Urine Glucose COVID-19 Source SARS-CoV-2 (PCR) 12/19/21 12/19/21 12/19/21 18:33 18:43 20:19 WBC RBC Hgb Hct MCV MCH MCHC RDW Plt Count MPV Immature Gran % Neutrophils % Lymphocytes % Monocytes % Eosinophils % Basophils % Nucleated RBC % Absolute Neutrophils Absolute Lymphocytes Absolute Monocytes Absolute Eosinophils Absolute Basophils VBG pH 7.31 VBG pCO2 26 L VBG pO2 33 VBG HCO3 13 L VBG Total CO2 12 L VBG O2 Saturation 61 VBG Base Excess -13 L Sodium Potassium Chloride Carbon Dioxide Anion Gap BUN Creatinine Estimated GFR/1.73 m2 Glucose Calcium Total Bilirubin AST ALT Alkaline Phosphatase Total Protein Albumin Urine Color Yellow Urine Clarity Clear Urine pH 5.5 Ur Specific [place] >= 1.030 H Urine Protein >=300 H Urine Ketones >=160 H Urine Blood Moderate H Urine Nitrite Negative Urine Bilirubin Small H Urine Urobilinogen 0.2 Ur Leukocyte Esterase Negative Urine RBC 3-5 H Urine WBC 0-2 Ur Epithelial Cells Negative Urine Crystals Negative Urine Bacteria Negative Urine Casts Negative Urine Mucus Negative Urine Other Negative Ur Culture Indicated? No Urine Glucose 500 H COVID-19 Source Nasal/Nares SARS-CoV-2 (PCR) Negative 12/19/21 12/19/21 12/19/21 21:56 22:49 22:49 WBC RBC Hgb Hct MCV MCH MCHC RDW Plt Count MPV Immature Gran % Neutrophils % Lymphocytes % Monocytes % Eosinophils % Basophils % Nucleated RBC % Absolute Neutrophils Absolute Lymphocytes Absolute Monocytes Absolute Eosinophils Absolute Basophils VBG pH 7.38 VBG pCO2 20 L VBG pO2 42 VBG HCO3 12 L VBG Total CO2 11 L VBG O2 Saturation 79 VBG Base Excess -13 L Sodium 141 142 Potassium 4.0 4.0 Chloride 107 105 Carbon Dioxide 15.9 L 13.1 L Anion Gap 18.1 H 23.9 H BUN 17 Creatinine 0.9 Estimated GFR/1.73 m2 >= 60.00 Glucose 270 H Calcium 9.4 Total Bilirubin AST ALT Alkaline Phosphatase Total Protein Albumin Urine Color Urine Clarity Urine pH Ur Specific [place] Urine Protein Urine Ketones Urine Blood Urine Nitrite Urine Bilirubin Urine Urobilinogen Ur Leukocyte Esterase Urine RBC Urine WBC Ur Epithelial Cells Urine Crystals Urine Bacteria Urine Casts Urine Mucus Urine Other Ur Culture Indicated? Urine Glucose COVID-19 Source SARS-CoV-2 (PCR) 12/20/21 12/20/21 12/20/21 00:34 02:15 06:11 WBC RBC Hgb Hct MCV MCH MCHC RDW Plt Count MPV Immature Gran % Neutrophils % Lymphocytes % Monocytes % Eosinophils % Basophils % Nucleated RBC % Absolute Neutrophils Absolute Lymphocytes Absolute Monocytes Absolute Eosinophils Absolute Basophils VBG pH VBG pCO2 VBG pO2 VBG HCO3 VBG Total CO2 VBG O2 Saturation VBG Base Excess Sodium Cancelled 142 141 Potassium Cancelled 3.9 4.1 Chloride Cancelled 108 H 109 H Carbon Dioxide Cancelled 15.8 L 18.7 L Anion Gap Cancelled 18.2 H 13.3 H BUN Creatinine Estimated GFR/1.73 m2 Glucose Calcium Total Bilirubin AST ALT Alkaline Phosphatase Total Protein Albumin Urine Color Urine Clarity Urine pH Ur Specific [place] Urine Protein Urine Ketones Urine Blood Urine Nitrite Urine Bilirubin Urine Urobilinogen Ur Leukocyte Esterase Urine RBC Urine WBC Ur Epithelial Cells Urine Crystals Urine Bacteria Urine Casts Urine Mucus Urine Other Ur Culture Indicated? Urine Glucose COVID-19 Source SARS-CoV-2 (PCR) Review of Systems All systems reviewed & are unremarkable except as noted in HPI and below Time spent with patient Time spent in Critical Care: 40 Time spent in Critical care included: Chart review, Documenting critically ill care, Time at immediate bedside and Discussing critically ill care with other medical staff
[2021-12-20 08:07] LABS: BE (Venous) -7 mmol/L (-2-3); HCO3 (Venous) 20 mmol/L (23-28); O2 Sat (Venous) 58 %; TCO2 (Venous) 18 mmol/L (24-29); pCO2 (Venous) 42 mmHg (41-51); pH (Venous) 7.28 (7.31-7.41); pO2 (Venous) 31 mmHg
--- NOTE | 2021-12-20 09:04 | PDOC.CMIN ---
- If Service Date Differs Date of service: 12/20/21 Time of Service: 09:04 Care Management Initial Assess REASON FOR HOSPITALIZATION:: DKA PAST MEDICAL HISTORY/PAST SURGICAL HISTORY:: All Active Problems . Discharge planning issues (Acute). DVT prophylaxis (Acute). DKA (diabetic ketoacidosis) (Acute). Hypomagnesemia (Acute). Hypophosphatemia (Acute). Noncompliance with medication regimen (Chronic). COVID-19 (Acute). COVID (Acute). Nausea and vomiting (Acute). Elevated blood pressure affecting in third trimester, antepartum (Acute). Medical History . Crohn's disease. Type 1 diabetes mellitus. [facility] [place] [place]; h/o hospitalizations for DKA. Surgical History . Colonoscopy - MAC (03/06/17) PREVIOUS FUNCTIONAL STATUS/SOCIAL/FAMILY SUPPORTS:: Monica resides in [place], [place] with her nenita Elizabeth and daughter. 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 Monica is independent at baseline in the community. CURRENT FUNCTIONAL STATUS:: Monica was lying in bed whem CM met with her. Her blanket was partially covering her face which made communication slightly difficult. Monica was awake, alert and difficult to engage in conversation. Per provider, Monica reported that she was unable to strip picker her Precision Elijah Test strips from the pharmacy following her last admission. These stripes are used with her Leyla II meter. Per [facility], a PA was done for these test strips, there was a $0 copay and they were never picked up by the patient. CM asked the pharmacy to refill the RX and relayed the info to Monica. Pt agrees to strip picker the RX following discharge. ADVANCE DIRECTIVES:: None on file Has patient been provided with info about the portal/API?: Yes Did the patient sign up for the portal?: No CODE STATUS:: Full Code INSURANCE COVERAGE / FINANCIAL ISSUES:: BC BRET CURRENT HOME/COMMUNITY SERVICES/EQUIPMENT:: None PRIMARY CARE PHYSICIAN:: None POTENTIAL DISCHARGE NEEDS:: Hospital F/U using oncall provider schedule. Plan to get test strips from her pharmacy. PATIENT/FAMILY EDUCATION NEEDS:: Review discharge instructions, limitations, medications and plan to f/u with a primary care provider following discharge. Ask Me Three. TRANSPORTATION:: Via private vehicle with ennita. PLAN:: Anticipate, Monica will be discharged home with no new [facility] services. She will transport via private vehicle with family. Monica will require a hospital F/U using oncall provider schedule. Monica will also be encouraged to establish care with a PCP of her choice. In addition, Monica expressed some difficulty getting her testing strips following her last discharge. Monica is aware that she will have a RX for test strips waiting for her to strip picker at [facility] in [place] following discharge and per pharmacy there is a $0 copay. CM will help support Monica's discharge planning needs.
[2021-12-20] MEDS: Insulin Glargine 300 UNITS/3 ML PEN 16 UNITS SC ×2 (09:08→20:17)
[2021-12-20 10:10] LABS: Absolute Basophil Count 0.05 10^3/uL (0.0-0.2); Absolute Monocyte Count 1.13 10^3/uL (0.1-0.8); Basophils % 0.3; HCT 38.8 % (36.0-46.0); HGB 12.9 g/dL (11.2-15.7); Immature Grans % 0.6; Lymphocytes % 6.9; MCH 29.3 pg (27.0-33.0); MCHC 33.2 % (32.0-36.0); MCV 88 fL (80-95); MPV 10.2 fL (8.0-11.0); Monocytes % 6.4; Neutrophils % 85.8; Platelet Count 384 10^3/uL (130-400); RDW-SD 44.8 fL; WBC 17.65 10^3/uL (4.4-10.8)
[2021-12-20 10:11] LABS: Absolute Lymphocyte Count 1.22 10^3/uL (1.2-3.4); Absolute Neutrophil Count 15.14 10^3/uL (1.2-6.7)
[2021-12-20 10:36] LABS: Lab Add On Test DONE
[2021-12-20 10:51] LABS: PHOSPHORUS 2.5 mg/dL (2.6-4.7)
[2021-12-20 10:53] LABS: Anion Gap 10.9 mmol/L (3-11); BUN 18 mg/dL (7-18); CO2 21.1 mmol/L (21.0-32.0); CREATININE 0.8 mg/dL (0.55-1.02); Calcium 8.9 mg/dL (8.5-10.1); Chloride 114 mmol/L (98-107); Glucose 167 mg/dL (74-106); Magnesium 1.7 mg/dL (1.8-2.4); Potassium 4.1 mmol/L (3.5-5.1); Sodium 146 mmol/L (136-145)
[2021-12-20 11:30] LABS: Procalcitonin 0.1 ng/mL
[2021-12-20] MEDS: Lactated Ringers 1,000 ML 100 ML IV (11:44)
--- NOTE | 2021-12-20 11:57 | W.INDIABCONS ---
Date of service: 12/20/21 Time of Service: 11:57 Diabetes Inpatient Consult Reason for Visit: dm DESCRIPTION/ASSESSMENT: Monica was admitted with DKA after 1 day of n/v. 21 year old female with DM1, Crohns Disease, gastroparesis. Medical chart reveals about 20 lbs weight loss in last 6 months. BMI wnl. Most recent A1C: 12.7% (08/06/22) indicating blood sugars averaging >290 mg/dl. Monica reports trying to lose weight. Suspect, may be limiting insulin to encourage weight loss (diabulemia?). Home DM meds: 1-30u rapid acting at meals, 42 units levemir at HS. Correction factor 1:20. Met with Monica in ICU. She reports her blood sugars have been good not interested in diabetes self management education. She states having no digestion issues. States she is followed by [facility]. Left information for Monica to inquire about getting an insulin pump (omnipod) that she can program with her continuous glucose monitor (has Libre2, would need switch to Dexcom G6 for compatability). Also encouraged her to inquire about Afrezza- inhaled rapid insulin for use at meals. High A1C most likely due to not taking insulin as prescribed with busy schedule with 2 year old child and possibly to encourage weight loss. Would benefit from having an insulin pump and bolus with inhaled insulin as needed. Provided my contact information for outpatient education. At time, Monica does not appear ready for diabetes education and at high risk for complications related to poorly controlled diabetes. At risk for diabulemia. INTERVENTION: provided information on insulin pumps, inhaled insulin for her to discuss with her [facility] team. Pump, inhaled insulin may make Dm med routine more feasible for Monica's life style PLAN: encouraged Monica to follow up in outpatient setting. Time Spent in Nutritional Counseling and Treatment: 10
[2021-12-20] MEDS: MAGNESIUM SULFATE 2 GM/50 ML BAG IVPB (12:02)
[2021-12-20 12:59] LABS: Lab Add On Test DONE
[2021-12-20 13:49] LABS: Hemoglobin A1C 12.8 % (<5.7)
[2021-12-20 14:40] LABS: BE (Venous) -12 mmol/L (-2-3); HCO3 (Venous) 14 mmol/L (23-28); O2 Sat (Venous) 99 %; TCO2 (Venous) 13 mmol/L (24-29); pCO2 (Venous) 26 mmHg (41-51); pH (Venous) 7.34 (7.31-7.41); pO2 (Venous) 110 mmHg
[2021-12-20] MEDS: Ondansetron 4 MG/2 ML VIAL IVP (14:53)
[2021-12-20 15:07] LABS: Anion Gap 15.1 mmol/L (3-11); BUN 14 mg/dL (7-18); CO2 15.9 mmol/L (21.0-32.0); CREATININE 0.7 mg/dL (0.55-1.02); Calcium 8.4 mg/dL (8.5-10.1); Chloride 108 mmol/L (98-107); Glucose 196 mg/dL (74-106); Magnesium 2.7 mg/dL (1.8-2.4); Sodium 139 mmol/L (136-145)
--- NOTE | 2021-12-20 15:43 | PGE_ITS ---
Date of Service Date of service: 12/20/21 Time of Service: 15:43 Assessment and Plan Assessment and plan (1) DKA (diabetic ketoacidosis): Status: Acute Assessment and plan: Unfortunately, recurred. The patient was placed back on insulin gtt. She will get the 2nd half of her long acting dose tonight. Will attempt to get her off of the insulin drip later today while monitoring electrolytes, anion gap, pH. Continue LR. (2) Leukocytosis: Status: Acute Assessment and plan: Likely reactive. No evidence of acute infectious process. No indication for abx at this time. Will continue to monitor (3) Gastroparesis due to DM: Status: Suspected Assessment and plan: The most likely cause of n/v. Wound benefit from a gastric emptying study, which should be done as an outpatient after her DKA resolves. (4) Noncompliance with medication regimen: Status: Chronic Assessment and plan: A1C of 12.8 suggest that the patient did not make significant changes in her insulin regimen. Her prior A1C was 12.7 in 08/06. Diabetes education is consulted. The patient typically follows with [facility] endocrinology. Has a CGM. Would benefit from having an insulin pump. (5) Hypophosphatemia: Status: Acute Assessment and plan: borderline low - the patient should be able to replete it dietarily. (6) Hypomagnesemia: Status: Acute Assessment and plan: repleted. (7) DVT prophylaxis: Status: Acute Assessment and plan: not required in an ambulatory 21 year old patient (8) Discharge planning issues: Status: Acute Assessment and plan: Full code Keep in ICU Total Critical Care Time [address] Rolon Subjective Subjective Interval history since last seen: Ms Dutta's insulin drip was shut off at about 11 am this morning when her gap had closed after she had breakfast and 2 hrs after her long acting insulin was administered. Unfortunately, after lunch she developed vomiting and her bloodwork demonstrated recurrence of DKA. She denied dizziness, chest pain, shortness of breath, abdominal pain. She is currently in the shower. She was examined at around 0850 am. She did not admit to missing any doses of insulin. She states she takes 42 units of tresiba at night. Exam Narrative Exam Narrative: General: female who is laying comfortably in bed, A&Ox3 HEENT: EOMI, dry MM Heart: RRR, no m/r/g Lungs: CTAB Abdomen: soft, nontender, nondistended Extremities: no edema BLEs Objective Last Vital Signs Temp 36.6 C 12/20/21 13:28 Pulse 88 12/20/21 08:00 Resp 23 12/20/21 13:28 BP 124/71 12/20/21 08:00 Pulse Ox 98 12/20/21 13:28 Laboratory Results - last 24 hr 12/19/21 12/19/21 12/19/21 02:15 18:33 18:33 WBC 16.41 H RBC 5.21 Hgb 15.1 Hct 45.0 MCV 86 MCH 29.0 MCHC 33.6 RDW 13.4 Plt Count 527 H MPV 10.8 Immature Gran % 0.4 Neutrophils % 92.5 Lymphocytes % 3.0 Monocytes % 3.8 Eosinophils % 0.1 Basophils % 0.2 Nucleated RBC % 0.0 Absolute Neutrophils 15.18 H Absolute Lymphocytes 0.49 L Absolute Monocytes 0.62 Absolute Eosinophils 0.02 Absolute Basophils 0.03 VBG pH VBG pCO2 VBG pO2 VBG HCO3 VBG Total CO2 VBG O2 Saturation VBG Base Excess Sodium Cancelled 141 Potassium Cancelled 4.2 Chloride Cancelled 102 Carbon Dioxide Cancelled 13.0 L Anion Gap Cancelled 26.0 H BUN 19 H Creatinine 1.0 Estimated GFR/1.73 m2 >= 60.00 Glucose 345 H Hemoglobin A1c Calcium 9.5 Phosphorus Magnesium Total Bilirubin 1.0 AST 36 ALT 37 Alkaline Phosphatase 108 Total Protein 8.9 H Albumin 4.6 Procalcitonin Urine Color Urine Clarity Urine pH Ur Specific [place] Urine Protein Urine Ketones Urine Blood Urine Nitrite Urine Bilirubin Urine Urobilinogen Ur Leukocyte Esterase Urine RBC Urine WBC Ur Epithelial Cells Urine Crystals Urine Bacteria Urine Casts Urine Mucus Urine Other Ur Culture Indicated? Urine Glucose COVID-19 Source SARS-CoV-2 (PCR) Add-On Test Request 12/19/21 12/19/21 12/19/21 18:33 18:43 20:19 WBC RBC Hgb Hct MCV MCH MCHC RDW Plt Count MPV Immature Gran % Neutrophils % Lymphocytes % Monocytes % Eosinophils % Basophils % Nucleated RBC % Absolute Neutrophils Absolute Lymphocytes Absolute Monocytes Absolute Eosinophils Absolute Basophils VBG pH 7.31 VBG pCO2 26 L VBG pO2 33 VBG HCO3 13 L VBG Total CO2 12 L VBG O2 Saturation 61 VBG Base Excess -13 L Sodium Potassium Chloride Carbon Dioxide Anion Gap BUN Creatinine Estimated GFR/1.73 m2 Glucose Hemoglobin A1c Calcium Phosphorus Magnesium Total Bilirubin AST ALT Alkaline Phosphatase Total Protein Albumin Procalcitonin Urine Color Yellow Urine Clarity Clear Urine pH 5.5 Ur Specific [place] >= 1.030 H Urine Protein >=300 H Urine Ketones >=160 H Urine Blood Moderate H Urine Nitrite Negative Urine Bilirubin Small H Urine Urobilinogen 0.2 Ur Leukocyte Esterase Negative Urine RBC 3-5 H Urine WBC 0-2 Ur Epithelial Cells Negative Urine Crystals Negative Urine Bacteria Negative Urine Casts Negative Urine Mucus Negative Urine Other Negative Ur Culture Indicated? No Urine Glucose 500 H COVID-19 Source Nasal/Nares SARS-CoV-2 (PCR) Negative Add-On Test Request 12/19/21 12/19/21 12/19/21 21:56 22:49 22:49 WBC RBC Hgb Hct MCV MCH MCHC RDW Plt Count MPV Immature Gran % Neutrophils % Lymphocytes % Monocytes % Eosinophils % Basophils % Nucleated RBC % Absolute Neutrophils Absolute Lymphocytes Absolute Monocytes Absolute Eosinophils Absolute Basophils VBG pH 7.38 VBG pCO2 20 L VBG pO2 42 VBG HCO3 12 L VBG Total CO2 11 L VBG O2 Saturation 79 VBG Base Excess -13 L Sodium 141 142 Potassium 4.0 4.0 Chloride 107 105 Carbon Dioxide 15.9 L 13.1 L Anion Gap 18.1 H 23.9 H BUN 17 Creatinine 0.9 Estimated GFR/1.73 m2 >= 60.00 Glucose 270 H Hemoglobin A1c Calcium 9.4 Phosphorus Magnesium Total Bilirubin AST ALT Alkaline Phosphatase Total Protein Albumin Procalcitonin Urine Color Urine Clarity Urine pH Ur Specific [place] Urine Protein Urine Ketones Urine Blood Urine Nitrite Urine Bilirubin Urine Urobilinogen Ur Leukocyte Esterase Urine RBC Urine WBC Ur Epithelial Cells Urine Crystals Urine Bacteria Urine Casts Urine Mucus Urine Other Ur Culture Indicated? Urine Glucose COVID-19 Source SARS-CoV-2 (PCR) Add-On Test Request 12/20/21 12/20/21 12/20/21 00:34 02:15 06:11 WBC RBC Hgb Hct MCV MCH MCHC RDW Plt Count MPV Immature Gran % Neutrophils % Lymphocytes % Monocytes % Eosinophils % Basophils % Nucleated RBC % Absolute Neutrophils Absolute Lymphocytes Absolute Monocytes Absolute Eosinophils Absolute Basophils VBG pH VBG pCO2 VBG pO2 VBG HCO3 VBG Total CO2 VBG O2 Saturation VBG Base Excess Sodium Cancelled 142 141 Potassium Cancelled 3.9 4.1 Chloride Cancelled 108 H 109 H Carbon Dioxide Cancelled 15.8 L 18.7 L Anion Gap Cancelled 18.2 H 13.3 H BUN Creatinine Estimated GFR/1.73 m2 Glucose Hemoglobin A1c Calcium Phosphorus Magnesium Total Bilirubin AST ALT Alkaline Phosphatase Total Protein Albumin Procalcitonin Urine Color Urine Clarity Urine pH Ur Specific [place] Urine Protein Urine Ketones Urine Blood Urine Nitrite Urine Bilirubin Urine Urobilinogen Ur Leukocyte Esterase Urine RBC Urine WBC Ur Epithelial Cells Urine Crystals Urine Bacteria Urine Casts Urine Mucus Urine Other Ur Culture Indicated? Urine Glucose COVID-19 Source SARS-CoV-2 (PCR) Add-On Test Request 12/20/21 12/20/21 12/20/21 07:56 10:00 10:00 WBC 17.65 H RBC 4.40 Hgb 12.9 D Hct 38.8 MCV 88 MCH 29.3 MCHC 33.2 RDW 14.0 Plt Count 384 MPV 10.2 Immature Gran % 0.6 Neutrophils % 85.8 Lymphocytes % 6.9 Monocytes % 6.4 Eosinophils % 0.0 Basophils % 0.3 Nucleated RBC % 0.0 Absolute Neutrophils 15.14 H Absolute Lymphocytes 1.22 Absolute Monocytes 1.13 H Absolute Eosinophils 0.00 Absolute Basophils 0.05 VBG pH 7.28 L VBG pCO2 42 VBG pO2 31 VBG HCO3 20 L VBG Total CO2 18 L VBG O2 Saturation 58 VBG Base Excess -7 L Sodium 146 H Potassium 4.1 Chloride 114 H Carbon Dioxide 21.1 Anion Gap 10.9 BUN 18 Creatinine 0.8 Estimated GFR/1.73 m2 >= 60.00 Glucose 167 H Hemoglobin A1c Calcium 8.9 Phosphorus Magnesium 1.7 L Total Bilirubin AST ALT Alkaline Phosphatase Total Protein Albumin Procalcitonin Urine Color Urine Clarity Urine pH Ur Specific [place] Urine Protein Urine Ketones Urine Blood Urine Nitrite Urine Bilirubin Urine Urobilinogen Ur Leukocyte Esterase Urine RBC Urine WBC Ur Epithelial Cells Urine Crystals Urine Bacteria Urine Casts Urine Mucus Urine Other Ur Culture Indicated? Urine Glucose COVID-19 Source SARS-CoV-2 (PCR) Add-On Test Request 12/20/21 12/20/21 12/20/21 10:00 10:00 10:00 WBC RBC Hgb Hct MCV MCH MCHC RDW Plt Count MPV Immature Gran % Neutrophils % Lymphocytes % Monocytes % Eosinophils % Basophils % Nucleated RBC % Absolute Neutrophils Absolute Lymphocytes Absolute Monocytes Absolute Eosinophils Absolute Basophils VBG pH VBG pCO2 VBG pO2 VBG HCO3 VBG Total CO2 VBG O2 Saturation VBG Base Excess Sodium Potassium Chloride Carbon Dioxide Anion Gap BUN Creatinine Estimated GFR/1.73 m2 Glucose Hemoglobin A1c Calcium Phosphorus 2.5 L Magnesium Total Bilirubin AST ALT Alkaline Phosphatase Total Protein Albumin Procalcitonin 0.1 Urine Color Urine Clarity Urine pH Ur Specific [place] Urine Protein Urine Ketones Urine Blood Urine Nitrite Urine Bilirubin Urine Urobilinogen Ur Leukocyte Esterase Urine RBC Urine WBC Ur Epithelial Cells Urine Crystals Urine Bacteria Urine Casts Urine Mucus Urine Other Ur Culture Indicated? Urine Glucose COVID-19 Source SARS-CoV-2 (PCR) Add-On Test Request DONE 12/20/21 12/20/21 12/20/21 10:00 10:00 14:34 WBC RBC Hgb Hct MCV MCH MCHC RDW Plt Count MPV Immature Gran % Neutrophils % Lymphocytes % Monocytes % Eosinophils % Basophils % Nucleated RBC % Absolute Neutrophils Absolute Lymphocytes Absolute Monocytes Absolute Eosinophils Absolute Basophils VBG pH VBG pCO2 VBG pO2 VBG HCO3 VBG Total CO2 VBG O2 Saturation VBG Base Excess Sodium 139 Potassium 4.0 Chloride 108 H Carbon Dioxide 15.9 L Anion Gap 15.1 H BUN 14 Creatinine 0.7 Estimated GFR/1.73 m2 >= 60.00 Glucose 196 H Hemoglobin A1c 12.8 H Calcium 8.4 L Phosphorus Magnesium 2.7 H Total Bilirubin AST ALT Alkaline Phosphatase Total Protein Albumin Procalcitonin Urine Color Urine Clarity Urine pH Ur Specific [place] Urine Protein Urine Ketones Urine Blood Urine Nitrite Urine Bilirubin Urine Urobilinogen Ur Leukocyte Esterase Urine RBC Urine WBC Ur Epithelial Cells Urine Crystals Urine Bacteria Urine Casts Urine Mucus Urine Other Ur Culture Indicated? Urine Glucose COVID-19 Source SARS-CoV-2 (PCR) Add-On Test Request DONE 12/20/21 14:34 WBC RBC Hgb Hct MCV MCH MCHC RDW Plt Count MPV Immature Gran % Neutrophils % Lymphocytes % Monocytes % Eosinophils % Basophils % Nucleated RBC % Absolute Neutrophils Absolute Lymphocytes Absolute Monocytes Absolute Eosinophils Absolute Basophils VBG pH 7.34 VBG pCO2 26 L VBG pO2 110 VBG HCO3 14 L VBG Total CO2 13 L VBG O2 Saturation 99 VBG Base Excess -12 L Sodium Potassium Chloride Carbon Dioxide Anion Gap BUN Creatinine Estimated GFR/1.73 m2 Glucose Hemoglobin A1c Calcium Phosphorus Magnesium Total Bilirubin AST ALT Alkaline Phosphatase Total Protein Albumin Procalcitonin Urine Color Urine Clarity Urine pH Ur Specific [place] Urine Protein Urine Ketones Urine Blood Urine Nitrite Urine Bilirubin Urine Urobilinogen Ur Leukocyte Esterase Urine RBC Urine WBC Ur Epithelial Cells Urine Crystals Urine Bacteria Urine Casts Urine Mucus Urine Other Ur Culture Indicated? 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
[2021-12-20] MEDS: INSULIN REGULAR IN 0.9 % NACL 100 UNIT/100 ML BAG IV (16:01)
[2021-12-20] MEDS: Metoclopramide 10 MG/2 ML VIAL IVP (16:14)
[2021-12-20] MEDS: Lactated Ringers 1,000 ML 150 ML IV (16:15)
[2021-12-20] MEDS: Pantoprazole 40 MG VIAL IVP (16:15)
[2021-12-20 16:53] LABS: BE (Venous) -13 mmol/L (-2-3); HCO3 (Venous) 13 mmol/L (23-28); O2 Sat (Venous) 58 %; TCO2 (Venous) 12 mmol/L (24-29); pCO2 (Venous) 25 mmHg (41-51); pH (Venous) 7.32 (7.31-7.41); pO2 (Venous) 29 mmHg
[2021-12-20 19:08] LABS: Anion Gap 11.9 mmol/L (3-11); BUN 16 mg/dL (7-18); CO2 18.1 mmol/L (21.0-32.0); CREATININE 0.8 mg/dL (0.55-1.02); Calcium 8.4 mg/dL (8.5-10.1); Chloride 109 mmol/L (98-107); Glucose 212 mg/dL (74-106); Magnesium 1.9 mg/dL (1.8-2.4); PHOSPHORUS 2.1 mg/dL (2.6-4.7); Potassium 3.7 mmol/L (3.5-5.1); Sodium 139 mmol/L (136-145)
[2021-12-20 22:21] LABS: Anion Gap 10.3 mmol/L (3-11); BUN 14 mg/dL (7-18); CO2 20.7 mmol/L (21.0-32.0); CREATININE 0.9 mg/dL (0.55-1.02); Calcium 8.3 mg/dL (8.5-10.1); Chloride 108 mmol/L (98-107); Glucose 194 mg/dL (74-106); Magnesium 1.7 mg/dL (1.8-2.4); Potassium 3.8 mmol/L (3.5-5.1); Sodium 139 mmol/L (136-145)
[2021-12-21] VITALS (12 sets, daily range): BP systolic 95–133; BP diastolic 61–79; PULSE 57–80; RESP 9–25; TEMP 36.6–36.7
[2021-12-21 02:24] LABS: Anion Gap 6.4 mmol/L (3-11); BUN 12 mg/dL (7-18); CO2 23.6 mmol/L (21.0-32.0); CREATININE 0.6 mg/dL (0.55-1.02); Calcium 8.2 mg/dL (8.5-10.1); Chloride 110 mmol/L (98-107); Glucose 101 mg/dL (74-106); Magnesium 1.6 mg/dL (1.8-2.4); Potassium 3.5 mmol/L (3.5-5.1); Sodium 140 mmol/L (136-145)
[2021-12-21 06:26] LABS: BE (Venous) -2 mmol/L (-2-3); HCO3 (Venous) 23 mmol/L (23-28); O2 Sat (Venous) 99 %; TCO2 (Venous) 21 mmol/L (24-29); pCO2 (Venous) 35 mmHg (41-51); pH (Venous) 7.42 (7.31-7.41); pO2 (Venous) 116 mmHg
[2021-12-21 06:32] LABS: Abs Immature Grans 0.04 10^3/uL (0.0-0.06); Absolute Basophil Count 0.04 10^3/uL (0.0-0.2); Absolute Eosinophil Count 0.05 10^3/uL (0.0-0.7); Absolute Lymphocyte Count 1.52 10^3/uL (1.2-3.4); Absolute Monocyte Count 0.53 10^3/uL (0.1-0.8); Absolute Neutrophil Count 6.74 10^3/uL (1.2-6.7); Basophils % 0.4; Eosinophils % 0.6; HCT 34.8 % (36.0-46.0); HGB 11.2 g/dL (11.2-15.7); Immature Grans % 0.4; MCH 28.9 pg (27.0-33.0); MCHC 32.2 % (32.0-36.0); MCV 90 fL (80-95); MPV 10.4 fL (8.0-11.0); Monocytes % 5.9; Neutrophils % 75.7; Platelet Count 301 10^3/uL (130-400); RBC 3.88 10^6/uL (3.93-5.22); RDW 13.8 % (11.7-14.6); RDW-SD 45.1 fL; WBC 8.92 10^3/uL (4.4-10.8)
[2021-12-21 06:37] LABS: Anion Gap 7.2 mmol/L (3-11); BUN 12 mg/dL (7-18); CO2 22.8 mmol/L (21.0-32.0); CREATININE 0.6 mg/dL (0.55-1.02); Calcium 8.3 mg/dL (8.5-10.1); Chloride 111 mmol/L (98-107); Glucose 142 mg/dL (74-106); Magnesium 1.7 mg/dL (1.8-2.4); Potassium 3.7 mmol/L (3.5-5.1); Sodium 141 mmol/L (136-145)
--- NOTE | 2021-12-21 08:48 | CMPROGNOTE_ITS ---
- If Service Date Differs Date of service: 12/21/21 Time of Service: 08:48 Care Management Progress Note S/O: Monica was sitting up in bed when JR met with her. She was pleasant and at times tearful, but engaged in conversation very well with this ghost writer today. Monica shares with JR that she is trying the best she can with her health, however since having a baby her blood sugars have been unmanageable. Monica does not have a PCP and agrees to see Diya Mcdermott [facility] (using oncall provider schedule) for a hospital follow up. JR notified Mandy at [facility] of her upcoming appointment with [facility]. In addition, Monica expressed some difficulty getting her testing strips following her last discharge. 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 Prior to her discharge Monica had a diabetic consult with [facility] and a Dexacom sensor was placed. [facility] will follow up with patient following discharge. In addition, Dr. De Oliveira sent a RX for 3 cartridges to [facility] in [place] and there will also me a $0 copy. A: 21 year old female admitted to [facility] on 12/20/21 for DKA. P: Anticipate, Monica will be discharged home with no new [facility] services. She will transport via private vehicle with family. She will follow discharge plan of care as prescribed and follow up with community providers. Initial hospital follow up appointment will be scheduled with Diya Mcdermott at [facility]. CM will help support Monica's discharge planning needs.
[2021-12-21] MEDS: Normal Saline Flush 10 ML SYR IVP (08:52)
[2021-12-21] MEDS: Pantoprazole 40 MG VIAL IVP (08:53)
[2021-12-21] MEDS: Insulin Glargine 300 UNITS/3 ML PEN 16 UNITS SC (08:55)
[2021-12-21] MEDS: Lactated Ringers 1,000 ML 100 ML IV (10:09)
[2021-12-21] MEDS: MAGNESIUM SULFATE 2 GM/50 ML BAG IVPB (10:15)
[2021-12-21 11:31] LABS: BUN 12 mg/dL (7-18); CREATININE 0.6 mg/dL (0.55-1.02); Calcium 8.2 mg/dL (8.5-10.1); Chloride 109 mmol/L (98-107); Glucose 157 mg/dL (74-106); Potassium 3.6 mmol/L (3.5-5.1); Sodium 140 mmol/L (136-145)
--- NOTE | 2021-12-21 11:46 | W.DIABETESNO ---
Date of service: 12/21/21 Time of Service: 11:46 Diabetes Note Reason for Visit: dm NOTE: Met with Monica in ICU to discuss her insulin regime. Monica reports taking 42 units tresiba (didn't realize it wasn't levemir until today), and taking 5 units rapid insulin at meals, with a correction factor of 1:10. After reviewing Leyla 2 CGM, noticed no data available. Monica reports having difficulty of having sensors pair with reader. ALso, reports when EMS brought her in, her blood sugar on CGM was 180mg /dl- however, it was > 300 mg/dl on ambulance. Placed Dexcom 6 CGM on Monica as she is interested in remote monitoring and being able to have family members have access to her glycemic data. Accepted data share with instructional writer. Will follow up on 12/23/21. Dr. De Oliveira to write order for Dexcom 6 sensors (3 per month) at discharge. Time Spent in Nutritional Counseling and Treatment: 30
[2021-12-21] MEDS: Insulin Aspart 300 UNITS/3 ML PEN SC ×2 (12:20→12:21)
--- NOTE | 2021-12-21 12:32 | DSE_ITS ---
Date of service: 12/21/21 Time of Service: 12:32 DS: Diagnosis Discharge Diagnosis (1) DKA (diabetic ketoacidosis): Status: Acute (2) Uncontrolled type 1 diabetes mellitus: Status: Chronic Asessment and Plan: A1C 12.8 (3) Leukocytosis: Status: Resolved Asessment and Plan: Reactive. No evidence of acute infection. (4) Gastroparesis due to DM: Status: Suspected (5) Noncompliance with medication regimen: Status: Chronic (6) Hypophosphatemia: Status: Acute (7) Hypomagnesemia: Status: Acute Discharge Plan Disposition Patient Disposition: HOME Condition: Stable Discharge Details Reason For Visit: DKA Admit Date/Time: 12/20/21 16:28 Admit Provider: Regan Wood Attending Provider: Regan Wood Primary Care Provider: None,None Hospital Course Hospital Course: Ms Dutta is a 21 year old female with PMHx of uncontrolled IDDM1 (A1C 12.8) on basal bolus insulin (tresiba/humalog), as well as h/o suspected diabetic gastroparesis (has not had a gastric emptying study yet), Crohn's disease, medication noncompliance, who was a patient at [facility] ICU under the hospitalist service from 12/19/21 until 12/21/21 for DKA with symptoms of nausea/vomiting. The patient states that she was compliant with her insulin therapy and CGM use. The patient was initiated on aggressive IVF as well as insulin infusion with careful monitoring of labs and repletion of electrolytes. She re-expanded her anion gap after the first attempt to take her off of insulin gtt after the initial resolution of her DKA and receiving long acting insulin, so the infusion had to be re-initiated. Today, her anion gap has again closed and she is tolerating PO without re-expanding it. She is medically stable for discharge home. The patient normally uses 42 units of tresiba at night. Because we do not have tresiba on the formulary, she was given lantus 16 units BID to reflect equivalent dose since she wants to transition back to tresiba tonight. She is advised to take a half of her dose of tresiba tonight and to resume her usual dose tomorrow. The patient met with our software educator. She did not milk pickup driver the Precision Elijah strips that I had previously prescribed for her, even though they were approved by her insurance. She was relying on her CGM for BG readings. She now knows that these are available at her pharmacy for her to milk pickup driver. Her Leyla 2 CGM was interrogated by our software educator that had noted that it was not communicating well with her sensor. Because the patient is very cellphone literate, it was felt to be better for her to be switched to DEXCOM 6 CGM with ability for remote monitoring by a software educator and her endocrinology team. DEXCOM 6 will also comunicate with her cell phone. This was approved by her insurance. The patient may still use her leyla 2 as a glucometer with the strips for back up, rather than as a CGM. She is medically stable for discharge home today. She is being referred to a new PCP (Diya Mcdermott) for follow up. She is also being referred to DM education and asked to follow up with her endocrinology team. Finally, we are ordering an outpatient gastric emptying study to ensure that she does not have gastroparesis. Nausea and vomiting on this admission may have been due to DKA alone, but gastroparesis needs to be ruled out. 60 minutes were spent on care for patient as well as her discharge on the day of discharge. Home Meds and New Rx's Prescriptions: New (DME) Dexcom G6 Sensor Device See Rx Instructions .Route Qty: 3 0RF Rx Instructions: As directed (DME) lancets [Lancets,Ultra Thin] Misc See Rx Instructions .Route Qty: 100 0RF Rx Instructions: For back up fingerstick checks AC/HS Continued (DME) FreeStyle Precision Elijah Strips Strip See Rx Instructions .ROUTE .MEDSUPPLY Qty: 50 11RF Rx Instructions: As directed (DME) pen needle, diabetic [BD Ultra-Fine Gsisel Pen Needle] 32 gauge x 5/32 needle 1 device miscellaneous DIRECTED Qty: 100 0RF (DME) pen needle, diabetic [BD Ultra-Fine Gissel Pen Needle] 32 gauge x 5/32 needle See Rx Instructions .ROUTE .COMPLEX Qty: 100 0RF Rx Instructions: 1 device as directed ;use as directed insulin lispro [Humalog KwikPen Insulin] 100 unit/mL insulin pen 1 - 30 unit SC .AC (4-5 times daily) MDD 150 units Qty: 45 0RF Rx Instructions: 1 unit: 10 grams of carbs. Corrective scale 1:40>150 Tresiba FlexTouch U-100 100 unit/mL (3 mL) insulin pen 42 unit SUBCUT HS 0RF Discontinued (DME) FreeStyle Leyla 14 Day Sensor Kit See Rx Instructions .ROUTE .MEDSUPPLY Qty: 6 3RF Rx Instructions: For blood sugar checks AC & HS No Action (DME) FreeStyle Leyla 2 [place] Misc See Rx Instructions .ROUTE .MEDSUPPLY Qty: 1 0RF Rx Instructions: As directed Discharge Instructions Instructions: Insulin Lispro (By injection), Insulin Degludec (By injection) Additional Instructions: Use DEXCOM [address] monitor [address] place of leyla 2. You can still use Leyla 2 as a glucometer with the precision elijah strips that your pharmacy has for you. Follow up with your PCP (Diya Mcdermott), Diabetes education, and with endocrinology at [facility]. Follow up for your gastric emptying study. Referrals: ENDOCRINOLOGY,[facility] [OTHER] - Diya Mcdermott, ELECTRIC CLOCK MECHANIC [NURSE PRACTITIONER] - [facility] Salazar [INDUSTRIAL WELDER] - Activity:: Activity as Tolerated Equipment/Supplies:: DEXCOM 6 CGM Diet:: Carb Counting Discharge Orders Discharge Orders: Discharge Order (Routine); Ordered 12/21/21 Ordered By: Kim De Oliveira Other Ambulatory Orders: NM gastric emptying (Routine) Timeframe: 2 Weeks Facility: [facility] - Location: DIAGNOSTIC IMAGING Ordered By: Kim De Oliveira DS: Summary Time Spent with Patient providing and/or coordinating discharge services: Greater than 30 minutes Status at Discharge Functional status at discharge: independent ambulation Overall status at discharge: patient is back to baseline Mental Status: mental status grossly normal Speech and Movement: speech and movement normal Mood: congruent mood Affect: normal affect Exam Narrative Exam Narrative: General: female who is laying comfortably in bed, A&Ox3 HEENT: EOMI, MMM Heart: RRR, no m/r/g Lungs: CTAB Abdomen: soft, nontender, nondistended Extremities: no edema BLEs Psych Mental Status: mental status grossly normal Speech and Movement: speech and movement normal Mood: congruent mood Affect: normal affect DS: Data Vitals/I&O Vitals and I&O: Vital Signs Temperature 36.6 C 12/21/21 09:02 Temperature Source Temporal Artery Scan 05/10/22 09:02 Pulse 64 12/21/21 12:15 Pulse 71 12/21/21 12:15 Respiratory Rate 9 L 12/21/21 12:15 Respiratory Effort Non-Labored 12/21/21 09:02 Respiratory Depth Normal 12/21/21 09:02 Respiratory Pattern Normal 12/21/21 09:02 Blood Pressure 133/70 12/21/21 12:15 Blood Pressure Mean 86 12/21/21 12:15 Blood Pressure Position Supine 12/21/21 09:02 Pulse Oximetry 97 12/20/21 16:00 Oxygen Delivery Method Room Air 12/21/21 09:02 Oxygen Flow Rate 0 12/21/21 09:02 Pain Level 0 12/21/21 09:02 Comment 12/19/21 23:00 Intake & Output 12/20/21 12/21/21 12/21/21 23:59 11:59 23:59 Intake Total 911.434 / 2559.055 2103.225 / 2103.225 Output Total 450 / 450 750 / 750 Balance 461.434 / 2109.055 1353.225 / 1353.225 Weight 56 kg Intake: IV 821.434 / 2169.055 2103.225 / 2103.225 Oral 90 / 390 Output: Urine 450 / 450 750 / 750 Other: Urine Color Dark Quyen Dark Quyen Urine Appearance Cloudy Cloudy Sediment Sediment Urine Odor None None Comment voids using bedside commode Voiding Methods Bedside Commode Bedside Commode Data Completed and Pending Labs on day of discharge: Labs from last 24 hours 12/21/21 12/21/21 12/21/21 11:00 06:15 06:15 WBC 8.92 RBC 3.88 L Hgb 11.2 Hct 34.8 L MCV 90 MCH 28.9 MCHC 32.2 D RDW 13.8 Plt Count 301 MPV 10.4 Immature Gran % 0.4 Neutrophils % 75.7 Lymphocytes % 17.0 Monocytes % 5.9 Eosinophils % 0.6 Basophils % 0.4 Nucleated RBC % 0.0 Absolute Neutrophils 6.74 H Absolute Lymphocytes 1.52 Absolute Monocytes 0.53 Absolute Eosinophils 0.05 Absolute Basophils 0.04 VBG pH 7.42 H VBG pCO2 35 L VBG pO2 116 VBG HCO3 23 VBG Total CO2 21 L VBG O2 Saturation 99 VBG Base Excess -2 Sodium 140 Potassium 3.6 Chloride 109 H Carbon Dioxide 23.0 Anion Gap 8.0 BUN 12 Creatinine 0.6 Estimated GFR/1.73 m2 >= 60.00 Glucose 157 H Hemoglobin A1c Calcium 8.2 L Phosphorus Magnesium Add-On Test Request 12/21/21 12/21/21 12/20/21 06:15 02:09 22:06 WBC RBC Hgb Hct MCV MCH MCHC RDW Plt Count MPV Immature Gran % Neutrophils % Lymphocytes % Monocytes % Eosinophils % Basophils % Nucleated RBC % Absolute Neutrophils Absolute Lymphocytes Absolute Monocytes Absolute Eosinophils Absolute Basophils VBG pH VBG pCO2 VBG pO2 VBG HCO3 VBG Total CO2 VBG O2 Saturation VBG Base Excess Sodium 141 140 139 Potassium 3.7 3.5 3.8 Chloride 111 H 110 H 108 H Carbon Dioxide 22.8 23.6 20.7 L Anion Gap 7.2 6.4 10.3 BUN 12 12 14 Creatinine 0.6 0.6 0.9 Estimated GFR/1.73 m2 >= 60.00 >= 60.00 >= 60.00 Glucose 142 H 101 194 H Hemoglobin A1c Calcium 8.3 L 8.2 L 8.3 L Phosphorus Magnesium 1.7 L 1.6 L 1.7 L Add-On Test Request 12/20/21 12/20/21 12/20/21 18:30 16:30 14:34 WBC RBC Hgb Hct MCV MCH MCHC RDW Plt Count MPV Immature Gran % Neutrophils % Lymphocytes % Monocytes % Eosinophils % Basophils % Nucleated RBC % Absolute Neutrophils Absolute Lymphocytes Absolute Monocytes Absolute Eosinophils Absolute Basophils VBG pH 7.32 7.34 VBG pCO2 25 L 26 L VBG pO2 29 110 VBG HCO3 13 L 14 L VBG Total CO2 12 L 13 L VBG O2 Saturation 58 99 VBG Base Excess -13 L -12 L Sodium 139 Potassium 3.7 Chloride 109 H Carbon Dioxide 18.1 L Anion Gap 11.9 H BUN 16 Creatinine 0.8 Estimated GFR/1.73 m2 >= 60.00 Glucose 212 H Hemoglobin A1c Calcium 8.4 L Phosphorus 2.1 L Magnesium 1.9 Add-On Test Request 12/20/21 12/20/21 12/20/21 14:34 10:00 10:00 WBC RBC Hgb Hct MCV MCH MCHC RDW Plt Count MPV Immature Gran % Neutrophils % Lymphocytes % Monocytes % Eosinophils % Basophils % Nucleated RBC % Absolute Neutrophils Absolute Lymphocytes Absolute Monocytes Absolute Eosinophils Absolute Basophils VBG pH VBG pCO2 VBG pO2 VBG HCO3 VBG Total CO2 VBG O2 Saturation VBG Base Excess Sodium 139 Potassium 4.0 Chloride 108 H Carbon Dioxide 15.9 L Anion Gap 15.1 H BUN 14 Creatinine 0.7 Estimated GFR/1.73 m2 >= 60.00 Glucose 196 H Hemoglobin A1c 12.8 H Calcium 8.4 L Phosphorus Magnesium 2.7 H Add-On Test Request DONE [facility] All Active Problems (Updated 12/21/21 @ 12:33 by Kim De Oliveira MD) Uncontrolled type 1 diabetes mellitus (Chronic) Hypomagnesemia (Acute) DKA (diabetic ketoacidosis) (Acute) Discharge planning issues (Acute) DVT prophylaxis (Acute) Hypophosphatemia (Acute) Noncompliance with medication regimen (Chronic) Nausea and vomiting (Acute) Elevated blood pressure affecting in third trimester, antepartum (Acute) Medical History (Updated 12/21/21 @ 12:33 by Kim De Oliveira MD) COVID COVID-19 Crohn's disease DKA (diabetic ketoacidosis) Hypokalemia Hypomagnesemia Type 1 diabetes mellitus [facility] Endo; h/o hospitalizations for DKA Surgical History Colonoscopy - [facility] (03/06/17) Family History Maternal Grandfather Breast cancer Paternal Cousin Diabetes Maternal Grandfather Heart disease Mother Hypertension Social History Smoking/Tobacco Use Status: Never Smoking risk assessment performed?: Yes Alcohol Intake: never Drug use: Daily Substance use type: marijuana Adopted: No Caregiver/Support person: Yes (2 month old ricardo) Household members: significant other, children and other Details: Fiwiley?: Glenn; 2-month-old (as of May 2020) Housing: house Number of Children: 1 Communication Needs: None Education Level: high school current occupation: [employer] Pets and animals: Yes Pets and animals: dog(s) Sexually active: Yes Do you think of yourself as: straight/heterosexual Current gender identity: female What is your relationship status?: living with partner Panel score (0-1 are the most socially isolated patients): 1 What type of physical activity do you participate in: walking Seatbelt use: always Helmet use: Yes Drive intox or ride w/intox spike driver: Yes Working smoke detector in home: Yes Fire extinguisher in home: No Carbon monox detector in home: Yes Firearms in home: No Do you feel safe at home: Yes Do you feel safe in your relationship?: Yes Victim of physical abuse: No Victim of emotional abuse: No Victim of sexual abuse: No Female Reproductive History Menstrual Age of Menarche: 10 Duration of menses: 3-5 days control method: pills History History 1 Para 0 Hx # Term Pregnancies 0 Multiple births 0 Hx # Pregnancies 0 Ectopic pregnancies 0 AB induced 0 Hx Number of Living Children 0 AB spontaneous 0
--- NOTE | 2021-12-21 15:04 | CMDISCH_ITS ---
- If Service Date Differs Date of service: 12/21/21 Time of Service: 15:04 LACE Index Scoring Tool - Questions: Length of Stay (in days): 2 Acuity (Admit via E.D.?): Yes Comorbidities: Diabetes w/o Complication (HX of DKA) E.D. Visits: 4 - Answers: Total Score: 10 Risk of Readmission: High Risk Care Management Discharge Reason for Hospitalization: DKA Discharge Plan: Discharge home with no [facility] services via private vehicle with family. Monica will have a hospital follow up with Diya Mcdermott at [facility] and then establish care with a provider of her choice. CM notified CM at [facility]. Monica will also follow up with [facility] for diabetic education following discharge. Monica will also steel pickler her prescriptions at [facility] pharmacy in [place] and follow discharge plan of care as prescribed. Patient/Family Education Needs: Review discharge instructions, limitations, medications and plan to follow up with community providers. ask me three.
--- NOTE | 2021-12-28 15:35 | PDOC.CMPRO ---
- If Service Date Differs Date of service: 12/28/21 Time of Service: 15:35 Care Management Progress Note Monica was admitted to the ICU on 12/20/21 for DKA. Monica does not have a PCP, and has been without any routine care for several years. Monica reported to CM that she's had significant trouble managing her diabetes since her . Prior to discharge, a hospital follow up was scheduled for 12/28/21 with Diya Mcdermott (using the onc calendar since the patient is without an established PCP). Today, CM received notification from Mandy, Chronic Clicker Operator at [facility] stating that Monica did not show up for her hospital follow up visit this morning and remains without a PCP. This marketing writer sent a referral to [facility] in hopes that she can access support for her community needs.
== END 2021-12-21 14:20 | disposition home or self-care (01) | DRG 638 ==
LOC: ER 20:50 → ICU 12-20 11:31
PROVIDERS: Emergency Medicine; Internal Medicine; Admitting Provider General Practice; Emergency Provider Physician Assistant; Visit Provider General Practice
DX: E10.10 Type 1 diabetes mellitus with ketoacidosis without coma (principal); K50.90 Crohn's disease, unspecified, without complications; E10.43 Type 1 diabetes mellitus with diabetic autonomic (poly)neuropathy; K31.84 Gastroparesis; Z91.14 Patient's other noncompliance with medication regimen; E83.42 Hypomagnesemia; E83.39 Other disorders of phosphorus metabolism; Z86.16 Personal history of COVID-19; D72.828 Other elevated white blood cell count
CPT/HCPCS: 36410; 36415; 36416; 80048; 80051; 80053; 81025; 82805; 82962; 84145; 87635; 93005; 96361; 96365; 96366; 96375; 99285; 81003; 81015; 83036; 83735; 84100; 85025; 93010; 99219; 99239; 99291; J2060; J2405; J2765; J7042

== ENCOUNTER → 2021-12-22 00:02 | Outpatient (CLI) | payer BC, SELFPAY ==
--- NOTE | 2021-12-23 10:24 | DIABASSESS_ITS ---
Date of service: 12/23/21 Time of Service: 09:24 Diabetes Note Reason for Visit: dm NOTE: Attempted to call Monica today to review glycemic data from Dexcom 6 continuous glucose monitor. Voice mail full. Will fax CGM results to [facility]. Since discharge on 12/22/21, glycemic management has been excellent with average blood sugar of 108 mg/dl with 96% of time in range (70-180mg/dl). Will continue to monitor remotely and follow up as possible or as Monica is willing. Attempted to make outpatient appt after discharge, however, Monica said she would call to schedule. DM meds: 42 u Tresiba HS, 5 units rapid insulin at meals, 1:10 correction factor. Hoping current CGM that is linked to Monica's iphone will provide better motivation for Monica to follow insulin regime and stay in ideal range. She has included her mother to share data from her rachell. More support should lead to better outcomes. Time Spent in Nutritional Counseling and Treatment: 0
== END ==
PROVIDERS: Visit Provider Internal Medicine

== ENCOUNTER 2022-03-22 14:10 | Outpatient (CLI) | payer OTHER, SELFPAY ==
--- NOTE | 2022-03-22 14:00 | RT.EKG_ITS ---
APPROVED REPORT Exam: Resting ECG Reason for Exam: Tachycardia Patient Location: O HR:111 bpm ECG Measurements Heart Rate 111 AXIS SC 135 P 57 QRSd 91 QRS 53 QT 324 T 52 QTc 441 Conclusion Sinus tachycardia...rate> 99 Left atrial enlargement...P, P'>60mS, <-0.15mV V1
== END 2022-03-22 14:11 | disposition home or self-care (01) ==
LOC: DI.KIM 14:10
PROVIDERS: PCP Nurse Practitioner Family; Visit Provider Family Medicine
DX: R00.0 Tachycardia, unspecified (principal); R94.31 Abnormal electrocardiogram [ECG] [EKG]
CPT/HCPCS: 93010

== ENCOUNTER 2022-05-03 14:09 | Inpatient (IN) | payer OTHER, SELFPAY ==
[2022-05-03] VITALS (30 sets, daily range): BP systolic 105–149; BP diastolic 60–104; PULSE 93–144; RESP 15–40; TEMP 35.9–37.3; O2SAT 100
--- NOTE | 2022-05-03 14:00 | DI.RAD_ITS ---
Exam(s) XR PORTABLE CHEST AP EXAM: XR PORTABLE CHEST AP CLINICAL HISTORY: hyperglycemia. TECHNIQUE: 2D digital imaging was performed. COMPARISON: CR,XR XR PORTABLE CHEST AP from 08/04/2021 FINDINGS: Single AP portable view. Heart size is upper normal. The mediastinum is not widened. Lungs are clear. No infiltrates nor obvious pleural effusions. IMPRESSION: No acute pulmonary findings on this single AP portable view of the chest. Scoliosis noted. DATA REPOSITORY: RADIATION DOSE DELIVERED:
--- NOTE | 2022-05-03 14:15 | RT.EKG_ITS ---
APPROVED REPORT Exam: Resting ECG Reason for Exam: nausea Patient Location: E HR:113 bpm ECG Measurements Heart Rate 113 AXIS SD 126 P 79 QRSd 82 QRS 72 QT 353 T 73 QTc 484 Conclusion Sinus tachycardia...rate> 99 Sinus. Normal axis. No STEMI. I have reviewed and interpreted ECG and agree with software generated interpretation.
[2022-05-03 14:27] LABS: HCO3 (Venous) 9 mmol/L (23-28); O2 Sat (Venous) 54 %; TCO2 (Venous) 9 mmol/L (24-29); pCO2 (Venous) 27 mmHg (41-51); pO2 (Venous) 31 mmHg
[2022-05-03 14:28] LABS: Abs Immature Grans 0.24 10^3/uL (0.0-0.06); Absolute Lymphocyte Count 0.37 10^3/uL (1.2-3.4); Basophils % 0.3; HCT 46.7 % (36.0-46.0); HGB 15.3 g/dL (11.2-15.7); Lymphocytes % 1.6; MCH 30.2 pg (27.0-33.0); MCHC 32.8 % (32.0-36.0); MCV 92 fL (80-95); MPV 10.4 fL (8.0-11.0); Monocytes % 2.7; Neutrophils % 94.4; Platelet Count 484 10^3/uL (130-400); RBC 5.07 10^6/uL (3.93-5.22); RDW 13.2 % (11.7-14.6); RDW-SD 43.9 fL; WBC 23.09 10^3/uL (4.4-10.8)
[2022-05-03 14:29] LABS: Absolute Basophil Count 0.07 10^3/uL (0.0-0.2); Absolute Monocyte Count 0.62 10^3/uL (0.1-0.8); pH (Venous) 7.13 (7.31-7.41)
[2022-05-03 14:45] LABS: ALT 27 U/L (14-59); AST 27 U/L (15-37); Albumin 4.1 g/dL (3.4-5.0); Alkaline Phosphatase 110 U/L (46-116); Anion Gap 23.3 mmol/L (3-11); BUN 18 mg/dL (7-18); Bilirubin, Total 0.4 mg/dL (0.2-1.0); CO2 11.7 mmol/L (21.0-32.0); CREATININE 1.1 mg/dL (0.55-1.02); Chloride 107 mmol/L (98-107); Estimated GFR 72.86 (mL/min/1.73m2); Glucose 186 mg/dL (74-106); Lipase 35 U/L (73-393); Magnesium 1.8 mg/dL (1.8-2.4); PHOSPHORUS 2.5 mg/dL (2.6-4.7); Potassium 4.6 mmol/L (3.5-5.1); Sodium 142 mmol/L (136-145); Total Protein 8.7 g/dL (6.4-8.2)
[2022-05-03 14:53] LABS: Diff Comment Agrees w/ Instrument; RBC Morphology Normal
[2022-05-03 14:59] LABS: Bilirubin Large (Negative); Blood Moderate (Negative); Clarity Sl Cloudy (Clear); Glucose Negative (Negative); Ketones >=160 mg/dL (Negative); Leukocyte Esterase Negative (Negative); Nitrite Negative (Negative); Specific Gravity >= 1.030 (1.005-1.025); Urobilinogen 0.2 EU/dL (Up TO 0.2)
[2022-05-03 15:07] LABS: Bacteria Moderate HPF (Negative); Crystals Negative HPF (Negative); Epithelial Cells Many HPF (Negative); Mucus Heavy (Negative)
[2022-05-03 15:08] LABS: C & S Indicated? No/Sq. Contamination; Casts 3-5 Hyaline LPF (Negative)
[2022-05-03 15:11] LABS: Lactate 3.4 mmol/L (0.6-1.4)
--- NOTE | 2022-05-03 15:30 | HPE_ITS ---
Date of service: 05/03/22 Time of Service: 15:31 Assessment and Plan Assessment and plan (1) DKA (diabetic ketoacidosis): Status: Acute Assessment and plan: Continue IVF and insulin gtt. Written to receive an equivalent of her tresiba dose as lantus tonight. Follow serial chemistries, VBGs. (2) Uncontrolled type 1 diabetes mellitus: Status: Chronic Assessment and plan: As above Check A1C. C/s DM educator. (3) Gastroparesis due to DM: Status: Suspected Assessment and plan: The patient had been previously ordered to have a gastric emptying study as outpatient. It does not appear to have been done. Will monitor how the patient does with PO intake. (4) Noncompliance with medication regimen: Status: Chronic Assessment and plan: Diabetes education consulted. Check A1C. (5) DVT prophylaxis: Status: Acute Assessment and plan: SCDs (6) Discharge planning issues: Status: Acute Assessment and plan: Full code Admit to ICU. Total Critical Care Time 40 minutes. History of Present Illness History of Present Illness Chief Complaint: Nausea/vomiting Narrative: Ms Dutta is a 21 year old female with PMHx of T1DM on basal bolus insulin as well as h/o gastroparesis, noncompliance, anxiety, and depressoin, who presented to [facility] ED toda with n/v every 20 minutes since 2 am this morning, found to be in DKA. She was initiated on IVF and insulin drip. Hospitalist admission was requested. Monica states she takes 22 units of tresiba twice daily at home and that she is certain she had not missed any doses. She did have a problem with her CGM this week and she was not able to get it refilled yet. Review of Systems All systems reviewed & are unremarkable except as noted in HPI and below PFSH All Active Problems (Updated 05/03/22 @ 16:15 by JOSUE Reina) Discharge planning issues (Acute) DVT prophylaxis (Acute) Sinus tachycardia (Acute) Anxiety and depression (Chronic) Uncontrolled type 1 diabetes mellitus (Chronic) Hypomagnesemia (Acute) DKA (diabetic ketoacidosis) (Acute) Hypophosphatemia (Acute) Noncompliance with medication regimen (Chronic) Nausea and vomiting (Acute) Elevated blood pressure affecting in third trimester, antepartum (Acute) Medical History (Updated 05/03/22 @ 16:15 by JOSUE Reina) COVID COVID-19 Crohn's disease DKA (diabetic ketoacidosis) Hypokalemia Hypomagnesemia Type 1 diabetes mellitus [facility] [place] Endo; h/o hospitalizations for DKA Surgical History Colonoscopy - MAC (03/06/17) Family History Maternal Grandfather Breast cancer Paternal Cousin Diabetes Maternal Grandfather Heart disease Mother Hypertension Social History Smoking/Tobacco Use Status: Current every day Tobacco Type: e-cigarettes Smoking risk assessment performed?: Yes Alcohol Intake: never Drug use: Occasionally Substance use type: marijuana Adopted: No Caregiver/Support person: Yes (2 month old ricardo) Household members: significant other, children and other Details: Fianc?: Glenn; 2-month-old (as of May 2020) Housing: house Number of Children: 1 Communication Needs: None Education Level: high school current occupation: [employer] Pets and animals: Yes Pets and animals: dog(s) Sexually active: Yes Do you think of yourself as: straight/heterosexual Current gender identity: female What is your relationship status?: living with partner Panel score (0-1 are the most socially isolated patients): 1 What type of physical activity do you participate in: walking Seatbelt use: always Helmet use: Yes 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 Working smoke detector in home: Yes Fire extinguisher in home: No Carbon monox detector in home: Yes Firearms in home: No Do you feel safe at home: Yes Do you feel safe in your relationship?: Yes Victim of physical abuse: No Victim of emotional abuse: No Victim of sexual abuse: No Female Reproductive History Menstrual Age of Menarche: 10 Duration of menses: 3-5 days control method: pills History History 1 Para 0 Hx # Term Pregnancies 0 Multiple births 0 Hx # Pregnancies 0 Ectopic pregnancies 0 AB induced 0 Hx Number of Living Children 0 AB spontaneous 0 Meds Allergies and Home Medications Allergies Allergy/AdvReac Type Severity Reaction Status Date / Time No Known Allergies Allergy Verified 05/03/22 14:15 Home Medications Medication Instructions Recorded Confirmed Type pen needle, diabetic 32 gauge x #100 ea 05/20/20 05/25/20 Rx 5/32 (BD Ultra-Fine Gissel Pen Needle) pen needle, diabetic 32 gauge x #100 ea 05/20/20 05/25/20 Rx 5/32 (BD Ultra-Fine Gissel Pen Needle) flash glucose scanning reader #1 ea 07/03/20 Rx (FreeStyle Leyla 2 [place]) blood sugar diagnostic (FreeStyle #50 ea 08/08/21 Rx Precision Elijah Strips) blood-glucose sensor (Dexcom G6 #3 ea 12/21/21 Rx Sensor device) insulin lispro 100 unit/mL 1 - 30 unit (0.01 - 0.3 mL) subcut 12/21/21 05/03/22 Rx subcutaneous pen (Humalog KwikPen .AC (4-5 times daily) #45 SYRGS (U-100) Insulin) lancets (Lancets,Ultra Thin) #100 ea 12/21/21 Rx insulin degludec 100 unit/mL (3 42 unit (0.42 mL) subcut HS #15 mL 03/22/22 05/03/22 Rx mL) subcutaneous pen (Tresiba FlexTouch U-100 insulin) paroxetine HCl 20 mg tablet 20 mg PO DAILY #30 tabs 03/22/22 03/22/22 Rx Exam Narrative Exam Narrative: General: Pleasant female who does not appear ill, A&Ox3, laying comfortably in bed, no dyspnea/tachypnea. Neurological: A&Ox3, no focal deficits Psychiatric: appropriate speech pattern/content Skin: Visible skin intact HEENT: Atraumatic, normocephalic, EOMI, dry MM, clear oropharynx, no submandibular or cervical lymphandeopathy, no goiter or JVD Cardiovascular: RRR, no m/r/g Lungs: CTAB Gastrointestinal: soft,nontender, nondistended Genitourinary: deferred Extremities: no edema BLEs Results Imaging Additional studies: CXR: No acute pulmonary findings on this single AP portable view of the chest. Scoliosis noted. Labs Result diagrams: 05/03/22 14:21 05/03/22 14:21 Labs: Laboratory Results - last 24 hr 05/03/22 05/03/22 05/03/22 14:21 14:21 14:21 WBC 23.09 H RBC 5.07 Hgb 15.3 Hct 46.7 H MCV 92 MCH 30.2 MCHC 32.8 RDW 13.2 Plt Count 484 H MPV 10.4 Immature Gran % 1.0 Neutrophils % 94.4 Lymphocytes % 1.6 Monocytes % 2.7 Eosinophils % 0.0 Basophils % 0.3 Nucleated RBC % 0.0 Absolute Neutrophils 21.80 H Absolute Lymphocytes 0.37 L Absolute Monocytes 0.62 Absolute Eosinophils 0.00 Absolute Basophils 0.07 RBC Morphology Normal VBG pH 7.13 L* VBG pCO2 27 L VBG pO2 31 VBG HCO3 9 L VBG Total CO2 9 L VBG O2 Saturation 54 VBG Base Excess < -15 L VBG Lactate Sodium 142 Potassium 4.6 Chloride 107 Carbon Dioxide 11.7 L Anion Gap 23.3 H BUN 18 Creatinine 1.1 H Est GFR (CKD-EPI 2020) 72.86 Glucose 186 H Calcium 9.0 Phosphorus 2.5 L Magnesium 1.8 Total Bilirubin 0.4 AST 27 ALT 27 Alkaline Phosphatase 110 Total Protein 8.7 H Albumin 4.1 Lipase 35 Urine Color Urine Clarity Urine pH Ur Specific [place] Urine Protein Urine Ketones Urine Blood Urine Nitrite Urine Bilirubin Urine Urobilinogen Ur Leukocyte Esterase Urine RBC Urine WBC Ur Epithelial Cells Urine Crystals Urine Bacteria Urine Casts Urine Mucus Ur Culture Indicated? Urine Glucose 05/03/22 05/03/22 14:47 15:05 WBC RBC Hgb Hct MCV MCH MCHC RDW Plt Count MPV Immature Gran % Neutrophils % Lymphocytes % Monocytes % Eosinophils % Basophils % Nucleated RBC % Absolute Neutrophils Absolute Lymphocytes Absolute Monocytes Absolute Eosinophils Absolute Basophils RBC Morphology VBG pH VBG pCO2 VBG pO2 VBG HCO3 VBG Total CO2 VBG O2 Saturation VBG Base Excess VBG Lactate 3.4 H* Sodium Potassium Chloride Carbon Dioxide Anion Gap BUN Creatinine Est GFR (CKD-EPI 2020) Glucose Calcium Phosphorus Magnesium Total Bilirubin AST ALT Alkaline Phosphatase Total Protein Albumin Lipase Urine Color Yellow Urine Clarity Sl Cloudy Urine pH 6.0 Ur Specific [place] >= 1.030 H Urine Protein >=300 H Urine Ketones >=160 H Urine Blood Moderate H Urine Nitrite Negative Urine Bilirubin Large H Urine Urobilinogen 0.2 Ur Leukocyte Esterase Negative Urine RBC 5-10 H Urine WBC 3-5 Ur Epithelial Cells Many Urine Crystals Negative Urine Bacteria Moderate Urine Casts 3-5 Hyaline Urine Mucus Heavy Ur Culture Indicated? No/Sq. Contamination Urine Glucose Negative Last Vital Signs Temp 35.9 C L 05/03/22 14:11 Pulse 110 H 05/03/22 14:11 Resp 16 05/03/22 14:11 BP 141/99 H 05/03/22 14:11 Pulse Ox 100 05/03/22 14:11
[2022-05-03] MEDS: INSULIN REGULAR IN 0.9 % NACL 100 UNIT/100 ML BAG 6.804 UNIT IV (15:51)
[2022-05-03] MEDS: cefTRIAXone 2 GM/50 ML BAG IVPB (15:51)
[2022-05-03] MEDS: Metoclopramide 10 MG/2 ML VIAL (15:52)
[2022-05-03] MEDS: Normal Saline 1,000 ML 1000 ML IV (15:52)
[2022-05-03 16:04] LABS: COVID-19 PCR Negative (Negative); Influenza A PCR Negative (Negative); Influenza B PCR Negative (Negative); RSV PCR Negative (Negative)
--- NOTE | 2022-05-03 16:09 | W.ED.GENAD ---
Discharge Plan Disposition Patient Disposition: [facility] INPATIENT Condition: Stable Discharge Details Clinical Impression: DKA (diabetic ketoacidosis), Hypophosphatemia, Uncontrolled type 1 diabetes mellitus, Sinus tachycardia, Nausea and vomiting Admit Date/Time: 05/03/22 15:23 Admit Provider: Kim De Oliveira Attending Provider: Kim De Oliveira Primary Care Provider: Hetal Leon ED Provider: Silvia Egan Discharge Data Discharge Date/Time-TO BE ENTERED AT DEPARTURE: 05/03/22 17:06 Medical Decision Making Patient has a glucose of 186, lactate of 3.4, 23, bicarb of 11 pH of 7.1 Phosphorus of 2.5, mag within normal limits, potassium 4.6 EKG with mildly prolonged QTC at 484 Received Zofran prior to my initial assessment, will administer Reglan Leukocytosis, 23,000 and neutrophil count of 21%, will order procalcitonin secondary to lactic acidosis, likely secondary to euglycemic DKA Given 1 L of normal saline, given glucose of 186, insulin drip at 0.1 units/kg/h was initiated and D5 LR with 20 mEq of potassium was initiated at 125/h after consultation with the admitting hospitalist, Dr. De Oliveira COVID swab pending Chest x-ray does not show evidence of infectious etiology of complaints Urinalysis does not show evidence of obvious urinary tract infection Blood sugar will be checked every hour Patient remains alert and oriented, she has a completely nontender abdominal exam and I do not see clear indication for CT imaging given her age and lack of tenderness on abdominal exam at time of ED assessment Dr. De Oliveira will follow procalcitonin and decide whether or not antibiotics are indicated upon admission to, antibiotics will be held in the emergency department Vitals are improving at time of reassessment patient remains alert and oriented HPI General Date/Time Provider Initiated Documentation: 05/03/22 14:10. HPI Narrative: This 21-year-old female with history of DKA, uncontrolled diabetes, hypomagnesemia, leukocytosis, gastroparesis secondary to DM presents with report of vomiting that started at 2 AM that woke patient from sleep. She denies any pain complaints. She states she has been taking her medications as prescribed. She denies any chest pain, shortness of breath, abdominal pain. She denies any blood in her vomitus. She denies any diarrhea. She denies any chance of . She has chills without fever. She denies any falls or injuries. She denies any illicit drug use or alcohol consumption. She has otherwise felt well until 2:00 this morning. She states her symptoms are consistent with her prior episodes of DKA. She denies any urinary complaints. Related Data Home Medications Medication Instructions Recorded Confirmed pen needle, diabetic 32 gauge x #100 ea 05/20/20 05/25/20 (BD Ultra-Fine Gissel Pen Needle) pen needle, diabetic 32 gauge x #100 ea 05/20/20 05/25/20 (BD Ultra-Fine Gissel Pen Needle) flash glucose scanning reader #1 ea 07/03/20 (FreeStyle Le[place]al 2 [place]) blood sugar diagnostic (FreeStyle #50 ea 08/08/21 Precision Elijah Strips) blood-glucose sensor (Dexcom G6 #3 ea 12/21/21 Sensor device) insulin lispro 100 unit/mL 1 - 30 unit (0.01 - 0.3 mL) subcut 12/21/21 05/03/22 subcutaneous pen (Humalog KwikPen .AC (4-5 times daily) #45 SYRGS (U-100) Insulin) lancets (Lancets,Ultra Thin) #100 ea 12/21/21 paroxetine HCl 20 mg tablet 20 mg PO DAILY #30 tabs 03/22/22 05/04/22 insulin degludec 100 unit/mL (3 22 unit subcut BID 05/04/22 05/04/22 mL) subcutaneous pen (Tresiba FlexTouch U-100 insulin) Previous Rx's Medication Instructions Recorded pen needle, diabetic 32 gauge x #100 ea 05/20/20 (BD Ultra-Fine Gissel Pen Needle) pen needle, diabetic 32 gauge x #100 ea 05/20/20 (BD Ultra-Fine Gissel Pen Needle) flash glucose scanning reader #1 ea 07/03/20 (FreeStyle Leyla 2 [place]) blood sugar diagnostic (FreeStyle #50 ea 08/08/21 Precision Elijah Strips) blood-glucose sensor (Dexcom G6 #3 ea 12/21/21 Sensor device) insulin lispro 100 unit/mL 1 - 30 unit (0.01 - 0.3 mL) subcut 12/21/21 subcutaneous pen (Humalog KwikPen .AC (4-5 times daily) #45 SYRGS (U-100) Insulin) lancets (Lancets,Ultra Thin) #100 ea 12/21/21 paroxetine HCl 20 mg tablet 20 mg PO DAILY #30 tabs 03/22/22 Allergies Allergy/AdvReac Type Severity Reaction Status Date / Time No Known Allergies Allergy Verified 05/03/22 14:15 General Stated Complaint: Nausea/Vomit/Diar CHACHA: 3 Review of Systems All systems reviewed & are unremarkable except as noted in HPI and below PFSH All Active Problems (Updated 05/05/22 @ 00:10 by KRISTEN OJEDA) Hypokalemia (Acute) Sinus tachycardia (Acute) Anxiety and depression (Chronic) Uncontrolled type 1 diabetes mellitus (Chronic) Hypomagnesemia (Acute) DKA (diabetic ketoacidosis) (Acute) Hypophosphatemia (Acute) Noncompliance with medication regimen (Chronic) Nausea and vomiting (Acute) Elevated blood pressure affecting in third trimester, antepartum (Acute) Medical History (Updated 05/05/22 @ 00:10 by KRISTEN OJEDA) COVID COVID-19 Crohn's disease DKA (diabetic ketoacidosis) Hypokalemia Hypomagnesemia Type 1 diabetes mellitus [facility] Endo; h/o hospitalizations for DKA Surgical History Colonoscopy - MAC (03/06/17) Family History Maternal Grandfather Breast cancer Paternal Cousin Diabetes Maternal Grandfather Heart disease Mother Hypertension Social History Smoking/Tobacco Use Status: Current every day Tobacco Type: e-cigarettes Smoking risk assessment performed?: Yes Alcohol Intake: never Drug use: Occasionally Substance use type: marijuana Adopted: No Caregiver/Support person: Yes (2 month old ricardo) Household members: significant other, children and other Details: Fiwiley?: Glenn; 2-month-old (as of May 2020) Housing: house Number of Children: 1 Communication Needs: None Education Level: high school current occupation: [employer] Pets and animals: Yes Pets and animals: dog(s) Sexually active: Yes Do you think of yourself as: straight/heterosexual Current gender identity: female What is your relationship status?: living with partner Panel score (0-1 are the most socially isolated patients): 1 What type of physical activity do you participate in: walking Seatbelt use: always Helmet use: Yes 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 Working smoke detector in home: Yes Fire extinguisher in home: No Carbon monox detector in home: Yes Firearms in home: No Do you feel safe at home: Yes Do you feel safe in your relationship?: Yes Victim of physical abuse: No Victim of emotional abuse: No Victim of sexual abuse: No Female Reproductive History Menstrual Age of Menarche: 10 Duration of menses: 3-5 days control method: pills History History 1 Para 0 Hx # Term Pregnancies 0 Multiple births 0 Hx # Pregnancies 0 Ectopic pregnancies 0 AB induced 0 Hx Number of Living Children 0 AB spontaneous 0 Exam Const General: cooperative, comfortable and ill appearing Eyes Sclera: sclerae normal Resp Effort & Inspection: normal respiratory effort Auscultation: clear to auscultation bilaterally Cardio Rate: tachycardic Rhythm: regular rhythm GI Inspection: normal to inspection Other: non-tender Skin General skin exam: no rashes or lesions noted Neuro General: patient alert and patient oriented x3 Course Vital Signs Vital signs: Vital Signs Temperature 35.9 C L 05/03/22 14:11 Pulse 110 H 05/03/22 14:11 Respiratory Rate 16 05/03/22 14:11 Blood Pressure 141/99 H 05/03/22 14:11 Pulse Oximetry 100 05/03/22 14:11 Temperature 35.9 C L 05/03/22 14:11 Pulse 110 H 05/03/22 14:11 Respiratory Rate 16 05/03/22 14:11 Respiratory Effort 05/03/22 14:16 Blood Pressure 141/99 H 05/03/22 14:11 Pulse Oximetry 100 05/03/22 14:11 Lab/Test Results Lab/Test Results: 05/03/22 15:10 Blood Blood Culture - Pending 05/03/22 14:41 Blood Blood Culture - Pending Laboratory Tests Range/Units 05/03/22 05/03/22 05/03/22 14:21 14:21 14:21 WBC (4.4-10.8) 10^3/uL 23.09 H RBC (3.93-5.22) 10^6/uL 5.07 Hgb (11.2-15.7) g/dL 15.3 Hct (36.0-46.0) % 46.7 H MCV (80-95) fL 92 MCH (27.0-33.0) pg 30.2 MCHC (32.0-36.0) % 32.8 RDW (11.7-14.6) % 13.2 Plt Count (130-400) 10^3/uL 484 H MPV (8.0-11.0) fL 10.4 Immature Gran % 1.0 Neutrophils % 94.4 Lymphocytes % 1.6 Monocytes % 2.7 Eosinophils % 0.0 Basophils % 0.3 Nucleated RBC % (0.0-0.3) % 0.0 Absolute Neutrophils (1.2-6.7) 10^3/uL 21.80 H Absolute Lymphocytes (1.2-3.4) 10^3/uL 0.37 L Absolute Monocytes (0.1-0.8) 10^3/uL 0.62 Absolute Eosinophils (0.0-0.7) 10^3/uL 0.00 Absolute Basophils (0.0-0.2) 10^3/uL 0.07 RBC Morphology Normal VBG pH (7.31-7.41) 7.13 L* VBG pCO2 (41-51) mmHg 27 L VBG pO2 mmHg 31 VBG HCO3 (23-28) mmol/L 9 L VBG Total CO2 (24-29) mmol/L 9 L VBG O2 Saturation % 54 VBG Base Excess (-2-3) mmol/L < -15 L VBG Lactate (0.6-1.4) mmol/L Sodium (136-145) mmol/L 142 Potassium (3.5-5.1) mmol/L 4.6 Chloride (98-107) mmol/L 107 Carbon Dioxide (21.0-32.0) mmol/L 11.7 L Anion Gap (3-11) mmol/L 23.3 H BUN (7-18) mg/dL 18 Creatinine (0.55-1.02) mg/dL 1.1 H Est GFR (CKD-EPI 2020) (mL/min/1.73m2) 72.86 Glucose (74-106) mg/dL 186 H Calcium (8.5-10.1) mg/dL 9.0 Phosphorus (2.6-4.7) mg/dL 2.5 L Magnesium (1.8-2.4) mg/dL 1.8 Total Bilirubin (0.2-1.0) mg/dL 0.4 AST (15-37) U/L 27 ALT (14-59) U/L 27 Alkaline Phosphatase (46-116) U/L 110 Total Protein (6.4-8.2) g/dL 8.7 H Albumin (3.4-5.0) g/dL 4.1 Lipase (73-393) U/L 35 Urine Color (Yellow) Urine Clarity (Clear) Urine pH (5-8) Ur Specific [place] (1.005-1.025) Urine Protein (Negative) mg/dL Urine Ketones (Negative) mg/dL Urine Blood (Negative) Urine Nitrite (Negative) Urine Bilirubin (Negative) Urine Urobilinogen (Up TO 0.2) EU/dL Ur Leukocyte Esterase (Negative) Urine RBC (0-2) HPF Urine WBC (0-5) HPF Ur Epithelial Cells (Negative) HPF Urine Crystals (Negative) HPF Urine Bacteria (Negative) HPF Urine Casts (Negative) LPF Urine Mucus (Negative) Ur Culture Indicated? Urine Glucose (Negative) mg/dL Range/Units 05/03/22 05/03/22 14:47 15:05 WBC (4.4-10.8) 10^3/uL RBC (3.93-5.22) 10^6/uL Hgb (11.2-15.7) g/dL Hct (36.0-46.0) % MCV (80-95) fL MCH (27.0-33.0) pg MCHC (32.0-36.0) % RDW (11.7-14.6) % Plt Count (130-400) 10^3/uL MPV (8.0-11.0) fL Immature Gran % Neutrophils % Lymphocytes % Monocytes % Eosinophils % Basophils % Nucleated RBC % (0.0-0.3) % Absolute Neutrophils (1.2-6.7) 10^3/uL Absolute Lymphocytes (1.2-3.4) 10^3/uL Absolute Monocytes (0.1-0.8) 10^3/uL Absolute Eosinophils (0.0-0.7) 10^3/uL Absolute Basophils (0.0-0.2) 10^3/uL RBC Morphology VBG pH (7.31-7.41) VBG pCO2 (41-51) mmHg VBG pO2 mmHg VBG HCO3 (23-28) mmol/L VBG Total CO2 (24-29) mmol/L VBG O2 Saturation % VBG Base Excess (-2-3) mmol/L VBG Lactate (0.6-1.4) mmol/L 3.4 H* Sodium (136-145) mmol/L Potassium (3.5-5.1) mmol/L Chloride (98-107) mmol/L Carbon Dioxide (21.0-32.0) mmol/L Anion Gap (3-11) mmol/L BUN (7-18) mg/dL Creatinine (0.55-1.02) mg/dL Est GFR (CKD-EPI 2020) (mL/min/1.73m2) Glucose (74-106) mg/dL Calcium (8.5-10.1) mg/dL Phosphorus (2.6-4.7) mg/dL Magnesium (1.8-2.4) mg/dL Total Bilirubin (0.2-1.0) mg/dL AST (15-37) U/L ALT (14-59) U/L Alkaline Phosphatase (46-116) U/L Total Protein (6.4-8.2) g/dL Albumin (3.4-5.0) g/dL Lipase (73-393) U/L Urine Color (Yellow) Yellow Urine Clarity (Clear) Sl Cloudy Urine pH (5-8) 6.0 Ur Specific [place] (1.005-1.025) >= 1.030 H Urine Protein (Negative) mg/dL >=300 H Urine Ketones (Negative) mg/dL >=160 H Urine Blood (Negative) Moderate H Urine Nitrite (Negative) Negative Urine Bilirubin (Negative) Large H Urine Urobilinogen (Up TO 0.2) EU/dL 0.2 Ur Leukocyte Esterase (Negative) Negative Urine RBC (0-2) HPF 5-10 H Urine WBC (0-5) HPF 3-5 Ur Epithelial Cells (Negative) HPF Many Urine Crystals (Negative) HPF Negative Urine Bacteria (Negative) HPF Moderate Urine Casts (Negative) LPF 3-5 Hyaline Urine Mucus (Negative) Heavy Ur Culture Indicated? No/Sq. Contamination Urine Glucose (Negative) mg/dL Negative Critical Care Time Critical Care Time Critical Care Time: Yes Total Critical Care Time: 45 Attestation: Admission to the intensive care unit, diagnostic x-ray interpretation, diagnostic lab interpretation, insulin drip, telemetry monitoring, hospitalist consultation
[2022-05-03 16:41] LABS: Procalcitonin 0.4 ng/mL
[2022-05-03] MEDS: Normal Saline Flush 10 ML SYR IVP (18:24)
[2022-05-03] MEDS: Pantoprazole 40 MG VIAL IVP (18:25)
[2022-05-03 18:30] LABS: BE (Venous) -14 mmol/L (-2-3); HCO3 (Venous) 13 mmol/L (23-28); O2 Sat (Venous) 56 %; TCO2 (Venous) 12 mmol/L (24-29); pCO2 (Venous) 31 mmHg (41-51); pH (Venous) 7.25 (7.31-7.41); pO2 (Venous) 28 mmHg
[2022-05-03 18:33] LABS: Lactate 1.4 mmol/L (0.6-1.4)
[2022-05-03 18:43] LABS: Anion Gap 17.5 mmol/L (3-11); BUN 15 mg/dL (7-18); CO2 15.5 mmol/L (21.0-32.0); CREATININE 1.1 mg/dL (0.55-1.02); Chloride 106 mmol/L (98-107); Estimated GFR 72.86 (mL/min/1.73m2); Glucose 147 mg/dL (74-106); Magnesium 1.5 mg/dL (1.8-2.4); Sodium 139 mmol/L (136-145)
[2022-05-03] MEDS: Insulin Glargine 300 UNITS/3 ML PEN 18 UNITS SC (20:46)
[2022-05-03 22:10] LABS: HCO3 (Venous) 11 mmol/L (23-28); pCO2 (Venous) 21 mmHg (41-51); pH (Venous) 7.32 (7.31-7.41); pO2 (Venous) 157 mmHg
[2022-05-03 22:14] LABS: O2 Sat (Venous) > 99 %
[2022-05-03 22:46] LABS: Anion Gap 20.6 mmol/L (3-11); BUN 12 mg/dL (7-18); CO2 12.4 mmol/L (21.0-32.0); Calcium 9.3 mg/dL (8.5-10.1); Chloride 104 mmol/L (98-107); Estimated GFR 81.69 (mL/min/1.73m2); Glucose 162 mg/dL (74-106); Magnesium 1.6 mg/dL (1.8-2.4); Sodium 137 mmol/L (136-145)
[2022-05-04] VITALS (28 sets, daily range): BP systolic 102–135; BP diastolic 62–81; PULSE 70–104; RESP 12–22; TEMP 37.5–37.6
[2022-05-04 02:22] LABS: BE (Venous) -10 mmol/L (-2-3); HCO3 (Venous) 17 mmol/L (23-28); O2 Sat (Venous) > 99 %; pCO2 (Venous) 33 mmHg (41-51); pH (Venous) 7.31 (7.31-7.41); pO2 (Venous) 152 mmHg
[2022-05-04 02:45] LABS: Anion Gap 15.6 mmol/L (3-11); BUN 11 mg/dL (7-18); CO2 17.4 mmol/L (21.0-32.0); CREATININE 0.8 mg/dL (0.55-1.02); Calcium 9.1 mg/dL (8.5-10.1); Chloride 107 mmol/L (98-107); Estimated GFR 106.77 (mL/min/1.73m2); Glucose 101 mg/dL (74-106); Magnesium 1.3 mg/dL (1.8-2.4); Potassium 3.5 mmol/L (3.5-5.1); Sodium 140 mmol/L (136-145)
[2022-05-04 07:09] LABS: Abs Immature Grans 0.08 10^3/uL (0.0-0.06); Absolute Basophil Count 0.05 10^3/uL (0.0-0.2); Absolute Eosinophil Count 0.04 10^3/uL (0.0-0.7); Absolute Lymphocyte Count 1.85 10^3/uL (1.2-3.4); Absolute Monocyte Count 1.02 10^3/uL (0.1-0.8); Basophils % 0.4; Eosinophils % 0.3; HCT 38.1 % (36.0-46.0); HGB 12.8 g/dL (11.2-15.7); Immature Grans % 0.6; Lymphocytes % 14.7; MCH 30.1 pg (27.0-33.0); MCHC 33.6 % (32.0-36.0); MCV 90 fL (80-95); MPV 10.6 fL (8.0-11.0); Monocytes % 8.1; Neutrophils % 75.9; Platelet Count 378 10^3/uL (130-400); RBC 4.25 10^6/uL (3.93-5.22); RDW 13.3 % (11.7-14.6); RDW-SD 43.5 fL; WBC 12.59 10^3/uL (4.4-10.8)
[2022-05-04 07:12] LABS: Anion Gap 13.1 mmol/L (3-11); BUN 10 mg/dL (7-18); CO2 19.9 mmol/L (21.0-32.0); CREATININE 0.9 mg/dL (0.55-1.02); Chloride 107 mmol/L (98-107); Glucose 97 mg/dL (74-106); Magnesium 1.4 mg/dL (1.8-2.4); Potassium 3.6 mmol/L (3.5-5.1); Sodium 140 mmol/L (136-145)
[2022-05-04 07:18] LABS: Absolute Neutrophil Count 9.56 10^3/uL (1.2-6.7)
[2022-05-04 07:52] LABS: Hemoglobin A1C 10.4 % (<5.7)
[2022-05-04 08:18] LABS: BE (Venous) -7 mmol/L (-2-3); HCO3 (Venous) 18 mmol/L (23-28); pCO2 (Venous) 31 mmHg (41-51); pH (Venous) 7.37 (7.31-7.41); pO2 (Venous) 120 mmHg
[2022-05-04 08:20] LABS: O2 Sat (Venous) > 99 %
--- NOTE | 2022-05-04 09:07 | NUR.NOTE ---
Patient refused AM care at this time. Patient was asked to please let I or her nurse know if/when she is ready to get washed up. RN notified. Patient also did not have any liquids from clear liquid breakfast tray. Patient has call lucero at bedside along with bedside table and commode with in a few steps of bed so she can ambulate herself. Nursing Note:
--- NOTE | 2022-05-04 09:10 | INITIAL_ITS ---
- If Service Date Differs Date of service: 05/04/22 Time of Service: 09:10 Care Management Initial Assess REASON FOR HOSPITALIZATION:: DKA PAST MEDICAL HISTORY/PAST SURGICAL HISTORY:: All Active Problems (Updated 05/03/22 @ 16:15 by JOSUE Reina). Discharge planning issues (Acute). DVT prophylaxis (Acute). Sinus tachycardia (Acute). Anxiety and depression (Chronic). Uncontrolled type 1 diabetes mellitus (Chronic). Hypomagnesemia (Acute). DKA (diabetic ketoacidosis) (Acute). Hypophosphatemia (Acute). Noncompliance with medication regimen (Chronic). Nausea and vomiting (Acute). Elevated blood pressure affecting in third trimester, antepartum (Acute). Medical History (Updated 05/03/22 @ 16:15 by JOSUE Reina). COVID. COVID-19. Crohn's disease. DKA (diabetic ketoacidosis). Hypokalemia. Hypomagnesemia. Type 1 diabetes mellitus. [facility] Endo; h/o hospitalizations for DKA. Surgical History . Colonoscopy - MAC (03/06/17) PREVIOUS FUNCTIONAL STATUS/SOCIAL/FAMILY SUPPORTS:: Monica resides in [place], [place] with her nenita Elizabeth and daughter. 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 Monica is independent at baseline in the community. Monica denies any barriers to accessing her medications or making healthcare appointments. CURRENT FUNCTIONAL STATUS:: Monica was lying in bed when CM met with her. She is awake, alert and engages in conversation. Monica achknowledges that she has a telehealth visit with [facility] Endocrinology on 05/11/22 at 0800 and a follow up with [facility] Police Radio Dispatcher on 05/10/22 at 0900. She is planning on attending both visits. ADVANCE DIRECTIVES:: None on file, CM will offer forms. Has patient been provided with info about the portal/API?: Yes Did the patient sign up for the portal?: No CODE STATUS:: Full Code INSURANCE COVERAGE / FINANCIAL ISSUES:: [employer] (Monica a new ins. card, but not with her). CURRENT HOME/COMMUNITY SERVICES/EQUIPMENT:: Sees [facility] Endocrinology, CGM PRIMARY CARE PHYSICIAN:: Hetal Leon POTENTIAL DISCHARGE NEEDS:: Follow up appointments with PCP, [facility] team and additional diabetic education. PATIENT/FAMILY EDUCATION NEEDS:: Review discharge instructions, limitations, medications and plan to f/u with PCP following discharge. Ask Me Three. TRANSPORTATION:: Via private vehicle with fiance. PLAN:: Anticipate, Monica will be discharged home with no new [facility] services, when medically ready. She will transport via private vehicle with [employer]. Monica will require close outpatient follow up with community providers. Per Monica, she uses [facility] in [place] and denies barriers surrounding accessibility to medical care and medications. [facility] will provide Monica with a CGM to go home with that will buy her 10 days until she can get her CGM refilled. Monica has a follow up appointment with [facility] Diabetic education on 05/10/22 @ 0900 and a telehealth follow up with [facility] Endocrinology on 05/11/22 @ 0800.
[2022-05-04] MEDS: Potassium Chloride 20 MEQ TABCR 40 MEQ PO ×2 (09:42→17:40)
[2022-05-04] MEDS: MAGNESIUM SULFATE 4 GM/100 ML BAG IVPB (09:42)
[2022-05-04] MEDS: Insulin Glargine 300 UNITS/3 ML PEN 18 UNITS SC (09:43)
[2022-05-04] MEDS: DEXTROSE 5%-0.45% SALINE 1,000 ML 125 ML IV (09:54)
--- NOTE | 2022-05-04 10:20 | W.INDIABCONS ---
Date of service: 05/04/22 Time of Service: 10:20 Diabetes Inpatient Consult Reason for Visit: Diabetes education and management DESCRIPTION/ASSESSMENT: Ms. Dutta is admitted with DKA. She is getting regular insulin drip and 18 units of glargine b.i.d. Her blood sugars are now at target. A1C is 10.4 however it's the lowest it has been in two years. She has been as high as 13. She is ordered for clear liquids (sugar free is noted) and has refused them so far. Her BMI is 22.3 kg/m2 which is wnl. Of note, her weight a year ago was 16.8% more which indicates that she has had significant weight loss. Also noted however is that she had a baby in 2019 and perhaps this weight loss was intentional. H and P indicates that Ms. Dutta has been having trouble getting her CGM refilled. INTERVENTION: Will meet with Ms. Dutta to address her weight loss. I can give her a CGM to go home with that will buy her 10 days until she can get her CGM refilled. Will see what Ms. Dutta may need in terms of diabetes care and education support. Would consider changing diet order to cho consistent clear liquids without the sugar free order. Typically sick day care for diabetes would recommend that she get 45 grams of CHO per meal or 15 grams an hour. PLAN: Will visit with Ms. Dutta. Will monitor weight and blood suars and PO. Will evaluate her diabetes care and education support needs. Thank you for the consult. Time Spent in Nutritional Counseling and Treatment: 0
[2022-05-04 10:22] LABS: Anion Gap 12.5 mmol/L (3-11); BUN 10 mg/dL (7-18); CO2 19.5 mmol/L (21.0-32.0); CREATININE 0.8 mg/dL (0.55-1.02); Calcium 9.3 mg/dL (8.5-10.1); Chloride 108 mmol/L (98-107); Estimated GFR 106.77 (mL/min/1.73m2); Glucose 82 mg/dL (74-106); Potassium 3.4 mmol/L (3.5-5.1); Sodium 140 mmol/L (136-145)
[2022-05-04] MEDS: Insulin Aspart 300 UNITS/3 ML PEN SC ×2 (12:27→17:44)
--- NOTE | 2022-05-04 13:54 | W.DIABETESNO ---
Date of service: 05/04/22 Time of Service: 13:54 Diabetes Note Reason for Visit: follow up with appointment NOTE: Ms. Dutta states she hadn't picked up her CGM as she has to pay out of pocket and meet a $1500 deductible. She believes she has either met it or will soon and she states she plans to pick it up this week at the pharmacy. They do have it for her. With regard to how she feels about her diabetes education and support needs, she states she feels like she is doing well as her A1C was at one time in the 20s and is now 10. I suggested that based on the Dexcom reports that we are able to see remotely, she may want to review to see if there is anything that she may be able to improve. She agreed and is now set up with an outpatient visit with Zenobia Salazar for 05/10/22 at 9:00 am. Time Spent in Nutritional Counseling and Treatment: 15 minutes
[2022-05-04 16:55] LABS: Anion Gap 10.4 mmol/L (3-11); BUN 7 mg/dL (7-18); CO2 20.6 mmol/L (21.0-32.0); CREATININE 0.8 mg/dL (0.55-1.02); Calcium 7.7 mg/dL (8.5-10.1); Chloride 104 mmol/L (98-107); Estimated GFR 106.77 (mL/min/1.73m2); Magnesium 1.9 mg/dL (1.8-2.4); Potassium 3.1 mmol/L (3.5-5.1); Sodium 135 mmol/L (136-145)
[2022-05-04 16:58] LABS: Glucose 447 mg/dL (74-106)
[2022-05-04] MEDS: Lactated Ringers 1,000 ML 125 ML IV (17:38)
[2022-05-04] MEDS: Pantoprazole 40 MG VIAL IVP (17:40)
[2022-05-04] MEDS: Normal Saline Flush 10 ML SYR IVP (17:44)
--- NOTE | 2022-05-04 19:07 | W.PM.DS.N ---
Date of service: 05/04/22 Time of Service: 19:07 DS: Diagnosis Discharge Diagnosis (1) DKA (diabetic ketoacidosis): Status: Acute (2) Uncontrolled type 1 diabetes mellitus: Status: Chronic (3) Gastroparesis due to DM: Status: Suspected (4) Noncompliance with medication regimen: Status: Chronic (5) Hypokalemia: Status: Acute Discharge Plan Disposition Patient Disposition: HOME Condition: Stable Discharge Details Reason For Visit: DKA Admit Date/Time: 05/03/22 15:23 Admit Provider: Kim De Oliveira Attending Provider: Kim De Oliveira Primary Care Provider: Hetal Leon Hospital Course Hospital Course: Ms Dutta is a 21 year old female with PMHx of IDDM1, prior episodes of DKA, anxiety, depression, and medication noncompliance, who was a patient in [facility] ICU under the hospitalist service from 05/03/22 until 05/04/22 for DKA. She was treated with intravenous fluids, insulin drip, electrolyte repletion. She received her long acting insulin and was able to be weaned off of the insulin drip and tolerate PO by this afternoon. She is ready for discharge home today on basal bolus insulin regimen as prior to admission. She has an appointment scheduled with [facility] endocrinology. She is instructed to ensure that her continuous glucose monitor is refilled. Total Critical Care Time on day of discharge was 45 minutes. Home Meds and New Rx's Prescriptions: Continued paroxetine HCl 20 mg tablet 20 mg PO DAILY Qty: 30 0RF (DME) FreeStyle Precision Elijah Strips Strip See Rx Instructions .ROUTE .MEDSUPPLY Qty: 50 11RF Rx Instructions: As directed Tresiba FlexTouch U-100 100 unit/mL (3 mL) insulin pen 22 unit SUBCUT BID (DME) pen needle, diabetic [BD Ultra-Fine Gissel Pen Needle] 32 gauge x 5/32 needle 1 device miscellaneous DIRECTED Qty: 100 0RF (DME) pen needle, diabetic [BD Ultra-Fine Gissel Pen Needle] 32 gauge x 5/32 needle See Rx Instructions .ROUTE .COMPLEX Qty: 100 0RF Rx Instructions: 1 device as directed ;use as directed (DME) FreeStyle Leyla 2 [place] Misc See Rx Instructions .ROUTE .MEDSUPPLY Qty: 1 0RF Rx Instructions: As directed (DME) Dexcom G6 Sensor Device See Rx Instructions .Route Qty: 3 0RF Rx Instructions: As directed (DME) lancets [Lancets,Ultra Thin] Misc See Rx Instructions .Route Qty: 100 0RF Rx Instructions: For back up fingerstick checks AC/HS insulin lispro [Humalog KwikPen Insulin] 100 unit/mL insulin pen 1 - 30 unit SC .AC (4-5 times daily) MDD 150 units Qty: 45 4RF Rx Instructions: 1 unit: 10 grams of carbs. Corrective scale 1:40>150 Discharge Instructions Instructions: Diabetic Ketoacidosis (DC) Additional Instructions: Refill your continuous glucose monitor. Return to the hospital with any fever, bleeding, chest pain, or shortness of breath. Take your insulin as prescribed. Follow up [facility] endocrinology. Referrals: [facility] [Outside] - 05/11/22 8:00 am (Endocrinology... telehealth appt.) Activity:: Activity as Tolerated Equipment/Supplies:: No Equipment Needed Diet:: Carb Counting Discharge Orders Discharge Orders: Discharge Order (Routine); Ordered 05/04/22 Ordered By: Kim De Oliveira DS: Summary Time Spent with Patient providing and/or coordinating discharge services: Greater than 30 minutes Status at Discharge Functional status at discharge: independent ambulation Overall status at discharge: patient is back to baseline Mental Status: mental status grossly normal Speech and Movement: speech and movement normal Mood: congruent mood Affect: normal affect Exam Narrative Exam Narrative: General: Pleasant female, A&Ox3, NAD HEENT: EOMI, MMM Cardiovascular: RRR, no m/r/g Lungs: CTAB Gastrointestinal: soft,nontender, nondistended Extremities: no edema BLEs Psych Mental Status: mental status grossly normal Speech and Movement: speech and movement normal Mood: congruent mood Affect: normal affect DS: Data Vitals/I&O Vitals and I&O: Vital Signs Temperature 37.6 C H 05/04/22 15:30 Temperature Source Temporal Artery Scan 05/04/22 15:30 Pulse 88 05/04/22 17:00 Pulse 93 H 05/04/22 17:01 Respiratory Rate 16 05/04/22 17:01 Respiratory Effort Non-Labored 05/04/22 15:30 Respiratory Depth Normal 05/04/22 15:30 Respiratory Pattern Normal 05/04/22 15:30 Blood Pressure 126/80 05/04/22 17:00 Blood Pressure Mean 91 05/04/22 17:00 Blood Pressure Position Supine 05/04/22 15:30 Pulse Oximetry 100 05/03/22 17:24 Oxygen Delivery Method Room Air 05/04/22 15:30 Oxygen Flow Rate 0 05/04/22 15:30 Pain Level 0 05/04/22 15:30 Intake & Output 05/03/22 05/04/22 05/04/22 23:59 11:59 23:59 Intake Total 1081.103 / 6958.434 4043.716 / 2801.658 1775.942 / 2801.658 Balance 1081.103 / 2610.755 9067.716 / 2801.658 1775.942 / 2801.658 Weight 62.2 kg 64.7 kg Intake: IV 1081.103 / 6274.959 6967.716 / 2101.658 1075.942 / 2101.658 Oral 700 / 700 Other: Stool Size Small Stool Characteristics Soft Liquid Emesis Description Retching Undigested Food Bile Data Completed and Pending Completed studies during hospitalization [Text1]: CXR: No acute pulmonary findings on this single AP portable view of the chest. Scoliosis noted. Labs on day of discharge: Labs from last 24 hours 05/04/22 05/04/22 05/04/22 16:23 15:30 09:58 WBC RBC Hgb Hct MCV MCH MCHC RDW Plt Count MPV Immature Gran % Neutrophils % Lymphocytes % Monocytes % Eosinophils % Basophils % Nucleated RBC % Absolute Neutrophils Absolute Lymphocytes Absolute Monocytes Absolute Eosinophils Absolute Basophils VBG pH VBG pCO2 VBG pO2 VBG HCO3 VBG Total CO2 VBG O2 Saturation VBG Base Excess Sodium 135 L Cancelled 140 Potassium 3.1 L Cancelled 3.4 L Chloride 104 Cancelled 108 H Carbon Dioxide 20.6 L Cancelled 19.5 L Anion Gap 10.4 Cancelled 12.5 H BUN 7 Cancelled 10 Creatinine 0.8 Cancelled 0.8 Est GFR (CKD-EPI 2020) 106.77 Cancelled 106.77 Glucose 447 H Cancelled 82 Hemoglobin A1c Calcium 7.7 L Cancelled 9.3 Magnesium 1.9 Cancelled 09/05/04/22 05/04/22 08:11 05:32 05:32 WBC 12.59 H RBC 4.25 Hgb 12.8 D Hct 38.1 MCV 90 MCH 30.1 MCHC 33.6 RDW 13.3 Plt Count 378 MPV 10.6 Immature Gran % 0.6 Neutrophils % 75.9 Lymphocytes % 14.7 Monocytes % 8.1 Eosinophils % 0.3 Basophils % 0.4 Nucleated RBC % 0.0 Absolute Neutrophils 9.56 H Absolute Lymphocytes 1.85 Absolute Monocytes 1.02 H Absolute Eosinophils 0.04 Absolute Basophils 0.05 VBG pH 7.37 VBG pCO2 31 L VBG pO2 120 VBG HCO3 18 L VBG Total CO2 VBG O2 Saturation > 99 VBG Base Excess -7 L Sodium Potassium Chloride Carbon Dioxide Anion Gap BUN Creatinine Est GFR (CKD-EPI 2020) Glucose Hemoglobin A1c 10.4 H Calcium Magnesium 05/04/22 05/04/22 05/04/22 05:32 02:05 02:05 WBC RBC Hgb Hct MCV MCH MCHC RDW Plt Count MPV Immature Gran % Neutrophils % Lymphocytes % Monocytes % Eosinophils % Basophils % Nucleated RBC % Absolute Neutrophils Absolute Lymphocytes Absolute Monocytes Absolute Eosinophils Absolute Basophils VBG pH 7.31 VBG pCO2 33 L VBG pO2 152 VBG HCO3 17 L VBG Total CO2 VBG O2 Saturation > 99 VBG Base Excess -10 L Sodium 140 140 Potassium 3.6 3.5 Chloride 107 107 Carbon Dioxide 19.9 L 17.4 L Anion Gap 13.1 H 15.6 H BUN 10 11 Creatinine 0.9 0.8 Est GFR (CKD-EPI 2020) 92.70 106.77 Glucose 97 101 Hemoglobin A1c Calcium 9.0 9.1 Magnesium 1.4 L 1.3 L 05/03/22 05/03/22 22:05 22:05 WBC RBC Hgb Hct MCV MCH MCHC RDW Plt Count MPV Immature Gran % Neutrophils % Lymphocytes % Monocytes % Eosinophils % Basophils % Nucleated RBC % Absolute Neutrophils Absolute Lymphocytes Absolute Monocytes Absolute Eosinophils Absolute Basophils VBG pH 7.32 VBG pCO2 21 L VBG pO2 157 VBG HCO3 11 L VBG Total CO2 VBG O2 Saturation > 99 VBG Base Excess < -15 L Sodium 137 Potassium 4.0 Chloride 104 Carbon Dioxide 12.4 L Anion Gap 20.6 H BUN 12 Creatinine 1.0 Est GFR (CKD-EPI 2020) 81.69 Glucose 162 H Hemoglobin A1c Calcium 9.3 Magnesium 1.6 L 05/04/22 02:05 Blood Blood Culture - Pending Preliminary micro results at discharge 05/03/22 15:10 Blood Culture - Preliminary Blood NO GROWTH 24 HOURS 05/04/22 02:05 Blood Culture - Pending Blood [facility] All Active Problems (Updated 05/04/22 @ 19:24 by Kim De Oliveira MD) Hypokalemia (Acute) Discharge planning issues (Acute) DVT prophylaxis (Acute) Sinus tachycardia (Acute) Anxiety and depression (Chronic) Uncontrolled type 1 diabetes mellitus (Chronic) Hypomagnesemia (Acute) DKA (diabetic ketoacidosis) (Acute) Hypophosphatemia (Acute) Noncompliance with medication regimen (Chronic) Nausea and vomiting (Acute) Elevated blood pressure affecting in third trimester, antepartum (Acute) Medical History (Updated 05/04/22 @ 19:24 by Kim De Oliveira MD) COVID COVID-19 Crohn's disease DKA (diabetic ketoacidosis) Hypokalemia Hypomagnesemia Type 1 diabetes mellitus [facility] Endo; h/o hospitalizations for DKA Surgical History Colonoscopy - MAC (03/06/17) Family History Maternal Grandfather Breast cancer Paternal Cousin Diabetes Maternal Grandfather Heart disease Mother Hypertension Social History Smoking/Tobacco Use Status: Current every day Tobacco Type: e-cigarettes Smoking risk assessment performed?: Yes Alcohol Intake: never Drug use: Occasionally Substance use type: marijuana Adopted: No Caregiver/Support person: Yes (2 month old ricardo) Household members: significant other, children and other Details: Fianc?: Glenn; 2-month-old (as of May 2020) Housing: house Number of Children: 1 Communication Needs: None Education Level: high school current occupation: [employer] Pets and animals: Yes Pets and animals: dog(s) Sexually active: Yes Do you think of yourself as: straight/heterosexual Current gender identity: female What is your relationship status?: living with partner Panel score (0-1 are the most socially isolated patients): 1 What type of physical activity do you participate in: walking Seatbelt use: always Helmet use: Yes 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
== END 2022-05-04 19:45 | disposition home or self-care (01) | DRG 638 ==
LOC: ER 16:15 → ICU 17:10
PROVIDERS: Admitting Provider Internal Medicine; Emergency Provider Physician Assistant; PCP Nurse Practitioner Family; Visit Provider Internal Medicine
DX: E10.10 Type 1 diabetes mellitus with ketoacidosis without coma (principal); K50.90 Crohn's disease, unspecified, without complications; E10.43 Type 1 diabetes mellitus with diabetic autonomic (poly)neuropathy; K31.84 Gastroparesis; E87.6 Hypokalemia; F41.9 Anxiety disorder, unspecified; F32.A Depression, unspecified; Z91.14 Patient's other noncompliance with medication regimen; R00.0 Tachycardia, unspecified; E83.42 Hypomagnesemia; E83.39 Other disorders of phosphorus metabolism; R11.2 Nausea with vomiting, unspecified; Z86.16 Personal history of COVID-19; F17.290 Nicotine dependence, other tobacco product, uncomplicated
CPT/HCPCS: 36410; 36415; 36416; 80048; 80053; 82805; 82962; 83690; 84145; 87040; 87637; 93005; 96361; 96365; 96375; 99291; 71045; 81003; 81015; 83036; 83605; 83735; 84100; 85025; 93010; J2765; J3475

== ENCOUNTER 2022-06-20 13:53 | Inpatient (IN) | payer OTHER, SELFPAY ==
[2022-06-20] VITALS (57 sets, daily range): BP systolic 93–158; BP diastolic 10–114; PULSE 49–138; RESP 15–43; TEMP 36.6–37; O2SAT 91–100
--- NOTE | 2022-06-20 13:45 | RT.EKG_ITS ---
APPROVED REPORT Exam: Resting ECG Reason for Exam: tachycardia Patient Location: E HR:129 bpm ECG Measurements Heart Rate 129 AXIS VA 130 P 83 QRSd 118 QRS 65 QT 328 T -32 QTc 482 Conclusion Sinus tachycardia...rate> 99 Nonspecific intraventricular conduction delay...QRSd >115mS, not LBBB/RBBB ST elev, probable normal early repol pattern...ST elevation, age<55 sinus tachycardia at 129, normal axis, QTC 482, no STEMI
[2022-06-20 14:18] LABS: HCO3 (Venous) 3 mmol/L (23-28); O2 Sat (Venous) 96 %; TCO2 (Venous) 3 mmol/L (24-29); pO2 (Venous) 117 mmHg
[2022-06-20 14:19] LABS: Abs Immature Grans 1.06 10^3/uL (0.0-0.06); HCT 50.9 % (36.0-46.0); MCH 31.1 pg (27.0-33.0); MCHC 31.4 % (32.0-36.0); MCV 99 fL (80-95); RBC 5.14 10^6/uL (3.93-5.22); RDW 12.9 % (11.7-14.6); RDW-SD 47.4 fL
[2022-06-20] MEDS: Normal Saline 1,000 ML 1000 ML IV ×2 (14:19→18:00)
[2022-06-20 14:21] LABS: pCO2 (Venous) 18 mmHg (41-51); pH (Venous) 6.86 (7.31-7.41)
[2022-06-20 14:22] LABS: Lactate 6.1 mmol/L (0.6-1.4)
--- NOTE | 2022-06-20 14:22 | ED.GENADUL_ITS ---
Discharge Plan Disposition Patient Disposition: [facility] IN[facility]IENT Condition: Good Discharge Details Chief Complaint: Diabetes Clinical Impression: DKA (diabetic ketoacidosis) Admit Date/Time: 06/20/22 14:40 Admit Provider: Artemio Hadley Attending Provider: Artemio Hadley Primary Care Provider: Hetal Leon ED Provider: Sandrita Romo Discharge Instructions Activity:: Activity as Tolerated Equipment/Supplies:: No Equipment Needed Diet:: Carb Counting Discharge Orders Discharge Orders: Discharge Order (Routine); Ordered 06/22/22 Ordered By: Artemio Hadley Discharge Data Discharge Date/Time-TO BE ENTERED AT DEPARTURE: 06/20/22 16:49 Medical Decision Making Concern for DKA, dehydration, significant electrolyte derangement, other. Exam/history at this time is not consistent with seizure, head trauma, meningitis, acute CVA. Patient received 1 L normal saline fluid bolus on route. Plan for screening labs, 1 L IV fluid bolus, UA, IV placement, telemetry, EKG. The VBG shows pH 6.86. Potassium 5.3, WBC 38. 25. Labs reviewed and consistent with diabetic ketoacidosis. Insulin drip at 0.14 units/kg/h ordered, bicarb infusion ordered given severely low pH. We will continue normal saline at 200 cc/h after fluid bolus completed. I discussed patient with Dr. Hadley, hospitalist, who will admit. At this time there do not suspect acute emergent surgical abdominal process, pulmonary infection, other infectious trigger. Discussed elevated white count and possible initiation of antibiotics with Dr. Hadley, upon record review, patient has had significantly elevated white blood cell count in the past with episodes of DKA without infectious source. Plan to hold antibiotics at this time. Patient mental status improving after fluids, medications. Patient no longer slurring speech, following commands, answering questions appropriately. She do es continue to appear mildly altered. Medical Records Medical records reviewed: Yes I reviewed the patient's medical records. Lab Data Lab results reviewed: Yes I reviewed the patient's lab results. Labs: Laboratory Tests Range/Units 06/20/22 06/20/22 06/20/22 14:05 14:05 14:05 WBC (4.4-10.8) 10^3/uL 38.25 H* RBC (3.93-5.22) 10^6/uL 5.14 Hgb (11.2-15.7) g/dL 16.0 H Hct (36.0-46.0) % 50.9 H MCV (80-95) fL 99 H MCH (27.0-33.0) pg 31.1 MCHC (32.0-36.0) % 31.4 L RDW (11.7-14.6) % 12.9 Plt Count (130-400) 10^3/uL MPV (8.0-11.0) fL Immature Gran % See Differential Neutrophils % 87.0 Band Neutrophils % 4 Lymphocytes % 5.0 Monocytes % 3.0 Eosinophils % 0.0 Basophils % 0.0 Metamyelocytes % 1 Nucleated RBC % (0.0-0.3) % 0.0 Absolute Neutrophils (1.2-6.7) 10^3/uL 34.81 H Absolute Lymphocytes (1.2-3.4) 10^3/uL 1.91 Absolute Monocytes (0.1-0.8) 10^3/uL 1.15 H Absolute Eosinophils (0.0-0.7) 10^3/uL 0.00 Absolute Basophils (0.0-0.2) 10^3/uL 0.00 RBC Morphology Normal VBG pH (7.31-7.41) 6.86 L* VBG pCO2 (41-51) mmHg 18 L* VBG pO2 mmHg 117 VBG HCO3 (23-28) mmol/L 3 L VBG Total CO2 (24-29) mmol/L 3 L VBG O2 Saturation % 96 VBG Base Excess (-2-3) mmol/L < -15 L VBG Lactate (0.6-1.4) mmol/L Sodium (136-145) mmol/L 141 Potassium (3.5-5.1) mmol/L 5.3 H Chloride (98-107) mmol/L 102 Carbon Dioxide (21.0-32.0) mmol/L < 5.0 L* Anion Gap (3-11) mmol/L 34.49691 H BUN (7-18) mg/dL 20 H Creatinine (0.55-1.02) mg/dL 1.4 H Est GFR (CKD-EPI 2020) (mL/min/1.73m2) 54.55 Glucose (74-106) mg/dL 676 H* Calcium (8.5-10.1) mg/dL 9.0 Phosphorus (2.6-4.7) mg/dL 6.8 H Magnesium (1.8-2.4) mg/dL 2.5 H Total Bilirubin (0.2-1.0) mg/dL 0.6 AST (15-37) U/L 28 ALT (14-59) U/L 19 Alkaline Phosphatase (46-116) U/L 185 H Total Protein (6.4-8.2) g/dL 9.0 H Albumin (3.4-5.0) g/dL 4.5 Urine Color (Yellow) Urine Clarity (Clear) Urine pH (5-8) Ur Specific [place] (1.005-1.025) Urine Protein (Negative) mg/dL Urine Ketones (Negative) mg/dL Urine Blood (Negative) Urine Nitrite (Negative) Urine Bilirubin (Negative) Urine Urobilinogen (Up TO 0.2) EU/dL Ur Leukocyte Esterase (Negative) Urine RBC (0-2) HPF Urine WBC (0-5) HPF Ur Epithelial Cells (Negative) HPF Urine Crystals (Negative) HPF Urine Bacteria (Negative) HPF Urine Casts (Negative) LPF Urine Mucus (Negative) Ur Culture Indicated? Urine Glucose (Negative) mg/dL Urine Opiates Screen (Negative) Urine Methadone Screen (Negative) Ur Barbiturates Screen (Negative) Ur Tricyclics Screen (Negative) Ur Amphetamines Screen (Negative) U Benzodiazepines Scrn (Negative) Urine Cocaine Screen (Negative) Ur THC Screen (Negative) Range/Units 06/20/22 06/20/22 06/20/22 14:05 14:05 14:10 WBC (4.4-10.8) 10^3/uL RBC (3.93-5.22) 10^6/uL Hgb (11.2-15.7) g/dL Hct (36.0-46.0) % MCV (80-95) fL MCH (27.0-33.0) pg MCHC (32.0-36.0) % RDW (11.7-14.6) % Plt Count (130-400) 10^3/uL MPV (8.0-11.0) fL Immature Gran % Neutrophils % Band Neutrophils % Lymphocytes % Monocytes % Eosinophils % Basophils % Metamyelocytes % Nucleated RBC % (0.0-0.3) % Absolute Neutrophils (1.2-6.7) 10^3/uL Absolute Lymphocytes (1.2-3.4) 10^3/uL Absolute Monocytes (0.1-0.8) 10^3/uL Absolute Eosinophils (0.0-0.7) 10^3/uL Absolute Basophils (0.0-0.2) 10^3/uL RBC Morphology VBG pH (7.31-7.41) VBG pCO2 (41-51) mmHg VBG pO2 mmHg VBG HCO3 (23-28) mmol/L VBG Total CO2 (24-29) mmol/L VBG O2 Saturation % VBG Base Excess (-2-3) mmol/L VBG Lactate (0.6-1.4) mmol/L 6.1 H* Sodium (136-145) mmol/L Potassium (3.5-5.1) mmol/L Chloride (98-107) mmol/L Carbon Dioxide (21.0-32.0) mmol/L Anion Gap (3-11) mmol/L BUN (7-18) mg/dL Creatinine (0.55-1.02) mg/dL Est GFR (CKD-EPI 2020) (mL/min/1.73m2) Glucose (74-106) mg/dL Calcium (8.5-10.1) mg/dL Phosphorus (2.6-4.7) mg/dL Magnesium (1.8-2.4) mg/dL Cancelled Total Bilirubin (0.2-1.0) mg/dL AST (15-37) U/L ALT (14-59) U/L Alkaline Phosphatase (46-116) U/L Total Protein (6.4-8.2) g/dL Albumin (3.4-5.0) g/dL Urine Color (Yellow) Yellow Urine Clarity (Clear) Clear Urine pH (5-8) 5.5 Ur Specific [place] (1.005-1.025) >= 1.030 H Urine Protein (Negative) mg/dL 30 H Urine Ketones (Negative) mg/dL >=160 H Urine Blood (Negative) Trace-lysed H Urine Nitrite (Negative) Negative Urine Bilirubin (Negative) Negative Urine Urobilinogen (Up TO 0.2) EU/dL 0.2 Ur Leukocyte Esterase (Negative) Negative Urine RBC (0-2) HPF 0-2 Urine WBC (0-5) HPF 3-5 Ur Epithelial Cells (Negative) HPF Few Urine Crystals (Negative) HPF Negative Urine Bacteria (Negative) HPF Negative Urine Casts (Negative) LPF Negative Urine Mucus (Negative) Trace Ur Culture Indicated? No Urine Glucose (Negative) mg/dL 500 H Urine Opiates Screen (Negative) Urine Methadone Screen (Negative) Ur Barbiturates Screen (Negative) Ur Tricyclics Screen (Negative) Ur Amphetamines Screen (Negative) U Benzodiazepines Scrn (Negative) Urine Cocaine Screen (Negative) Ur THC Screen (Negative) Range/Units 06/20/22 14:10 WBC (4.4-10.8) 10^3/uL RBC (3.93-5.22) 10^6/uL Hgb (11.2-15.7) g/dL Hct (36.0-46.0) % MCV (80-95) fL MCH (27.0-33.0) pg MCHC (32.0-36.0) % RDW (11.7-14.6) % Plt Count (130-400) 10^3/uL MPV (8.0-11.0) fL Immature Gran % Neutrophils % Band Neutrophils % Lymphocytes % Monocytes % Eosinophils % Basophils % Metamyelocytes % Nucleated RBC % (0.0-0.3) % Absolute Neutrophils (1.2-6.7) 10^3/uL Absolute Lymphocytes (1.2-3.4) 10^3/uL Absolute Monocytes (0.1-0.8) 10^3/uL Absolute Eosinophils (0.0-0.7) 10^3/uL Absolute Basophils (0.0-0.2) 10^3/uL RBC Morphology VBG pH (7.31-7.41) VBG pCO2 (41-51) mmHg VBG pO2 mmHg VBG HCO3 (23-28) mmol/L VBG Total CO2 (24-29) mmol/L VBG O2 Saturation % VBG Base Excess (-2-3) mmol/L VBG Lactate (0.6-1.4) mmol/L Sodium (136-145) mmol/L Potassium (3.5-5.1) mmol/L Chloride (98-107) mmol/L Carbon Dioxide (21.0-32.0) mmol/L Anion Gap (3-11) mmol/L BUN (7-18) mg/dL Creatinine (0.55-1.02) mg/dL Est GFR (CKD-EPI 2020) (mL/min/1.73m2) Glucose (74-106) mg/dL Calcium (8.5-10.1) mg/dL Phosphorus (2.6-4.7) mg/dL Magnesium (1.8-2.4) mg/dL Total Bilirubin (0.2-1.0) mg/dL AST (15-37) U/L ALT (14-59) U/L Alkaline Phosphatase (46-116) U/L Total Protein (6.4-8.2) g/dL Albumin (3.4-5.0) g/dL Urine Color (Yellow) Urine Clarity (Clear) Urine pH (5-8) Ur Specific [place] (1.005-1.025) Urine Protein (Negative) mg/dL Urine Ketones (Negative) mg/dL Urine Blood (Negative) Urine Nitrite (Negative) Urine Bilirubin (Negative) Urine Urobilinogen (Up TO 0.2) EU/dL Ur Leukocyte Esterase (Negative) Urine RBC (0-2) HPF Urine WBC (0-5) HPF Ur Epithelial Cells (Negative) HPF Urine Crystals (Negative) HPF Urine Bacteria (Negative) HPF Urine Casts (Negative) LPF Urine Mucus (Negative) Ur Culture Indicated? Urine Glucose (Negative) mg/dL Urine Opiates Screen (Negative) Negative Urine Methadone Screen (Negative) Negative Ur Barbiturates Screen (Negative) Negative Ur Tricyclics Screen (Negative) Negative Ur Amphetamines Screen (Negative) Negative U Benzodiazepines Scrn (Negative) Negative Urine Cocaine Screen (Negative) Negative Ur THC Screen (Negative) Positive A ECG Data Attestation: I personally reviewed and interpreted this ECG (s) as follows: Interpretation: EKG shows sinus tachycardia at 129, normal axis, QTC 482, no STEMI HPI General Mode of arrival: EMS . Date/Time Provider Initiated Documentation: 06/20/22 13:56 . Limitations to Documentation: altered mental status . Information obtained by: patient, family, RN notes reviewed and old records reviewed . HPI Narrative: Monica Dutta is a 21-year-old woman with a history of insulin-dependent diabetes presenting to emergency department with elevated glucose. Patient's mother is present who also provides a history. She reports that she and patient work together. She states that patient was at work this morning and in her usual state of health when she developed general feeling of being unwell followed by vomiting. EMS was called. Per EMS patient reported that she missed 1 dose of insulin last night but has been taking her insulin otherwise. Patient's mother reports that patient was surrounded by people throughout the day and was not alone. No witnessed trauma or seizure. Patient denies any pain. Patient's mother reports that patient does not live with her, but has not complained to her over the past few days of health issues, no known recent fever, cough, pain. Related Data Home Medications Medication Instructions Recorded Confirmed pen needle, diabetic 32 gauge x #100 ea 05/20/20 05/26/22 (BD Ultra-Fine Gissel Pen Needle) pen needle, diabetic 32 gauge x #100 ea 05/20/20 05/26/22 (BD Ultra-Fine Gissel Pen Needle) flash glucose scanning reader #1 ea 07/03/20 05/26/22 (FreeStyle Leyla 2 [place]) blood sugar diagnostic (FreeStyle #50 ea 08/08/21 05/26/22 Precision Elijah Strips) blood-glucose sensor (Dexcom G6 #3 ea 12/21/21 05/26/22 Sensor device) insulin lispro 100 unit/mL 1 - 30 unit (0.01 - 0.3 mL) subcut 12/21/21 06/20/22 subcutaneous pen (Humalog KwikPen .AC (4-5 times daily) #45 SYRGS (U-100) Insulin) lancets (Lancets,Ultra Thin) #100 ea 12/21/21 05/26/22 insulin degludec 100 unit/mL (3 22 unit subcut BID 05/04/22 06/20/22 mL) subcutaneous pen (Tresiba FlexTouch U-100 insulin) venlafaxine 75 mg capsule,extended 75 mg PO DAILY #45 caps 05/26/22 06/20/22 release 24 hr Previous Rx's Medication Instructions Recorded pen needle, diabetic 32 gauge x #100 ea 05/20/20 (BD Ultra-Fine Gissel Pen Needle) pen needle, diabetic 32 gauge x #100 ea 05/20/20 (BD Ultra-Fine Gissel Pen Needle) flash glucose scanning reader #1 ea 07/03/20 (FreeStyle Leyla 2 [place]) blood sugar diagnostic (FreeStyle #50 ea 08/08/21 Precision Elijah Strips) blood-glucose sensor (Dexcom G6 #3 ea 12/21/21 Sensor device) insulin lispro 100 unit/mL 1 - 30 unit (0.01 - 0.3 mL) subcut 12/21/21 subcutaneous pen (Humalog KwikPen .AC (4-5 times daily) #45 SYRGS (U-100) Insulin) lancets (Lancets,Ultra Thin) #100 ea 12/21/21 venlafaxine 75 mg capsule,extended 75 mg PO DAILY #45 caps 05/26/22 release 24 hr Allergies Allergy/AdvReac Type Severity Reaction Status Date / Time paroxetine AdvReac Other (See Verified 05/26/22 09:38 Comment) General Stated Complaint: Diabetes CHACHA: 3 Review of Systems Narrative: Constitutional: denies fevers Eyes: denies eye pain ENT: denies ear pain, dental pain, sore throat Cardiovascular: denies chest pain Respiratory: denies SOB, cough GI: denies abdominal pain, diarrhea, reports vomiting : denies flank pain MSK: denies back pain, neck pain Skin: denies rash Neuro: denies headaches Reviewed PFSH All Active Problems (Updated 06/22/22 @ 11:15 by Sandrita Romo MD) DKA (diabetic ketoacidosis) (Acute) Type 1 diabetes mellitus (Acute) [facility] Endo; h/o hospitalizations for DKA Hypokalemia (Acute) Sinus tachycardia (Acute) Anxiety and depression (Chronic) Uncontrolled type 1 diabetes mellitus (Chronic) Hypophosphatemia (Acute) Noncompliance with medication regimen (Chronic) Medical History COVID-19 Crohn's disease DKA (diabetic ketoacidosis) Elevated blood pressure affecting in third trimester, antepartum Hypokalemia Hypomagnesemia Surgical History Colonoscopy - [facility] (03/06/17) Family History Maternal Grandfather Breast cancer Paternal Cousin Diabetes Maternal Grandfather Heart disease Mother Hypertension Father Mental health disorder Sister Mental health disorder Sister Mental health disorder Social History Smoking/Tobacco Use Status: Current every day Tobacco Type: e-cigarettes Smoking risk assessment performed?: Yes Alcohol Intake: never Drug use: Occasionally Substance use type: marijuana Adopted: No Caregiver/Support person: Yes (2 month old ricardo) Household members: significant other, children and other Details: 05/2022: Lives with boyfriend and 2 y/o dtr Glenn Housing: house Number of Children: 1 Communication Needs: None Education Level: high school 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 [employer] Pets and animals: Yes Pets and animals: dog(s) Sexually active: Yes Do you think of yourself as: straight/heterosexual Current gender identity: female Other: Estranged from father who abandoned the family when she was 14 y/o What is your relationship status?: living with partner Panel score (0-1 are the most socially isolated patients): 1 What type of physical activity do you participate in: walking Seatbelt use: always Helmet use: Yes 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 Working smoke detector in home: Yes Fire extinguisher in home: No Carbon monox detector in home: Yes Firearms in home: No Do you feel safe at home: Yes Do you feel safe in your relationship?: Yes Victim of physical abuse: No Victim of emotional abuse: No Victim of sexual abuse: No Female Reproductive History Menstrual Age of Menarche: 10 Duration of menses: 3-5 days control method: pills History History 1 Para 0 Hx # Term Pregnancies 0 Multiple births 0 Hx # Pregnancies 0 Ectopic pregnancies 0 AB induced 0 Hx Number of Living Children 0 AB spontaneous 0 Exam Narrative Exam Narrative: Constitutional: Alert, altered, ill-appearing. Flailing extremities at times, speech is slurred HENT: head atraumatic/normocephalic/normal inspection, mucous membranes dry, small amount of dried blood on lips and teeth, no apparent intraoral lacerations/lesion Eyes: conjunctiva normal, sclera normal, pupils 3mm b/l Neck: no stridor, normal ROM, trachea midline Chest: normal inspection Resp: Tachypnea, LCTAB Cardio: Tachycardic rate, normal rhythm, no murmur appreciated GI: abdomen soft, non-tender, non-distended Back: normal inspection, no rash Skin: warm, dry, normal color, no rash Neuro: alert, altered, follows some instructions, moving all extremities equally, grossly non-focal, normal tone Ext: no edema Course Vital Signs Vital signs: Vital Signs Temperature 36.6 C 06/20/22 13:50 Pulse 118 H 06/20/22 13:50 Respiratory Rate 20 06/20/22 13:50 Blood Pressure 145/89 H 06/20/22 13:50 Pulse Oximetry 100 06/20/22 13:50 Temperature 36.6 C 06/20/22 13:50 Temperature Source Tympanic 06/20/22 13:50 Pulse 118 H 06/20/22 13:50 Respiratory Rate 20 06/20/22 13:50 Respiratory Effort 06/20/22 14:19 Blood Pressure 145/89 H 06/20/22 13:50 Blood Pressure Position Supine 06/20/22 13:50 Pulse Oximetry 100 06/20/22 13:50 Oxygen Delivery Method Room Air 06/20/22 13:50 Oxygen Flow Rate 0 06/20/22 13:50 Pain Level 8 06/20/22 13:50 Lab/Test Results Lab/Test Results: Laboratory Tests Range/Units 06/20/22 06/20/22 06/20/22 14:05 14:05 14:05 VBG pH (7.31-7.41) 6.86 L* VBG pCO2 (41-51) mmHg 18 L* VBG pO2 mmHg 117 VBG HCO3 (23-28) mmol/L 3 L VBG Total CO2 (24-29) mmol/L 3 L VBG O2 Saturation % 96 VBG Base Excess (-2-3) mmol/L < -15 L VBG Lactate (0.6-1.4) mmol/L 6.1 H* Magnesium Cancelled Critical Care Time Critical Care Time Critical Care Time: Yes Total Critical Care Time: 45 Attestation: I have spent 45 minutes of critical care time with this critically ill patient including frequent bedside reassessments, discussion with family, and interpretation of labs.
[2022-06-20 14:25] LABS: Absolute Monocyte Count 1.15 10^3/uL (0.1-0.8)
[2022-06-20 14:35] LABS: WBC 38.25 10^3/uL (4.4-10.8)
[2022-06-20 14:39] LABS: Absolute Lymphocyte Count 1.91 10^3/uL (1.2-3.4); Absolute Neutrophil Count 34.81 10^3/uL (1.2-6.7); Bands % 4; Diff Comment Manual Differential; Metamyelocytes % 1; RBC Morphology Normal
[2022-06-20 14:43] LABS: ALT 19 U/L (14-59); AST 28 U/L (15-37); Albumin 4.5 g/dL (3.4-5.0); Alkaline Phosphatase 185 U/L (46-116); Anion Gap 34.00001 mmol/L (3-11); BUN 20 mg/dL (7-18); Bilirubin, Total 0.6 mg/dL (0.2-1.0); CREATININE 1.4 mg/dL (0.55-1.02); Chloride 102 mmol/L (98-107); Estimated GFR 54.55 (mL/min/1.73m2); Magnesium 2.5 mg/dL (1.8-2.4); PHOSPHORUS 6.8 mg/dL (2.6-4.7); Potassium 5.3 mmol/L (3.5-5.1); Sodium 141 mmol/L (136-145)
[2022-06-20 14:44] LABS: CO2 < 5.0 mmol/L (21.0-32.0); Glucose 676 mg/dL (74-106)
[2022-06-20 14:45] LABS: Bilirubin Negative (Negative); Blood Trace-lysed (Negative); Clarity Clear (Clear); Glucose 500 mg/dL (Negative); Ketones >=160 mg/dL (Negative); Leukocyte Esterase Negative (Negative); Nitrite Negative (Negative); Specific Gravity >= 1.030 (1.005-1.025); Urobilinogen 0.2 EU/dL (Up TO 0.2); pH 5.5 (5-8)
[2022-06-20] MEDS: INSULIN REGULAR IN 0.9 % NACL 100 UNIT/100 ML BAG 9.5 UNIT IV (14:50)
[2022-06-20 14:55] LABS: Bacteria Negative HPF (Negative); C & S Indicated? No; Casts Negative LPF (Negative); Crystals Negative HPF (Negative); Epithelial Cells Few HPF (Negative); Mucus Trace (Negative); RBC 0-2 HPF (0-2)
[2022-06-20 14:56] LABS: *AMPHETAMINES SCREEN URINE Negative (Negative); *BARBITURATES SCREEN URINE Negative (Negative); *BENZODIAZEPINES SCREEN URINE Negative (Negative); Cannabinoids THC Positive (Negative); Cocaine Screen,Urine Negative (Negative); METHADONE URINE SCREEN Negative (Negative); OPIATES URINE SCREEN Negative (Negative)
[2022-06-20 14:57] LABS: Tricyclic Antidepressants Negative (Negative)
[2022-06-20] MEDS: Normal Saline 1,000 ML 200 ML IV (15:00)
[2022-06-20 15:35] LABS: Source Nasal/Nares
[2022-06-20 16:07] LABS: COVID-19 PCR Negative (Negative)
[2022-06-20 17:10] LABS: Anion Gap 31.8 mmol/L (3-11); BUN 19 mg/dL (7-18); CO2 6.2 mmol/L (21.0-32.0); CREATININE 1.3 mg/dL (0.55-1.02); Calcium 8.7 mg/dL (8.5-10.1); Chloride 105 mmol/L (98-107); Estimated GFR 59.63 (mL/min/1.73m2); Sodium 143 mmol/L (136-145)
[2022-06-20] MEDS: Enoxaparin 40 MG/0.4 ML SYR SC (17:17)
[2022-06-20 17:33] LABS: Glucose 588 mg/dL (74-106)
--- NOTE | 2022-06-20 18:28 | W.PM.HP.N ---
Date of service: 06/20/22 Time of Service: 18:29 Assessment and Plan Assessment and plan (1) DKA (diabetic ketoacidosis): Assessment and plan: Insulin drip protocol. Lantus 20units SQ at 2100. Resume her CGM; she needs a refill. NPO except diet soda, water, ice. (2) Leukocytosis: Status: Resolved Assessment and plan: No infectious source. Likely stress related from DKA (3) DVT prophylaxis: Status: Resolved Assessment and plan: lovenox. (4) Anxiety and depression: Status: Chronic Assessment and plan: Cont venlafaxine History of Present Illness History of Present Illness Chief Complaint: Emesis, elevated blood glucose Narrative: This is a 21 yo female with a PMH of DM1, several admissions for DKA. She presented after developing emesis and elevated blood glucose while at work. Her mother relates some of the history to the ED physician. The patient and her mother work together. Mother and patient stated that she was in her usual state of health this AM and went to work. She then had an episode of emesis and developed confusion. She endorsed missing one dose of insulin the night before admission. No witnessed trauma, seizure. She denied fever/chills, cough, runny nose, abd pain/diarrhea, dysuria. In the ED her glucose was 646. VBG pH of 6.86. VBG lactate 6.1. K 5.3. Anion Gap 34. WBC count 38. HGB 16. Creatinine 1.4. UA negative for evidence of infection. Insulin drip initiated and pt admitted to the ICU for further care. Review of Systems All systems reviewed & are unremarkable except as noted in HPI and below PFSH All Active Problems Type 1 diabetes mellitus (Acute) [facility] Endo; h/o hospitalizations for DKA Hypokalemia (Acute) Sinus tachycardia (Acute) Anxiety and depression (Chronic) Uncontrolled type 1 diabetes mellitus (Chronic) Hypophosphatemia (Acute) Noncompliance with medication regimen (Chronic) Medical History COVID-19 Crohn's disease DKA (diabetic ketoacidosis) Elevated blood pressure affecting in third trimester, antepartum Hypokalemia Hypomagnesemia Surgical History Colonoscopy - MAC (03/06/17) Family History Maternal Grandfather Breast cancer Paternal Cousin Diabetes Maternal Grandfather Heart disease Mother Hypertension Father Mental health disorder Sister Mental health disorder Sister Mental health disorder Social History Smoking/Tobacco Use Status: Current every day Tobacco Type: e-cigarettes Smoking risk assessment performed?: Yes Alcohol Intake: never Drug use: Occasionally Substance use type: marijuana Adopted: No Caregiver/Support person: Yes (2 month old ricardo) Household members: significant other, children and other Details: 05/2022: Lives with boyfriend and 2 y/o dtr Glenn Housing: house Number of Children: 1 Communication Needs: None Education Level: high school 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 [employer] Pets and animals: Yes Pets and animals: dog(s) Sexually active: Yes Do you think of yourself as: straight/heterosexual Current gender identity: female Other: Estranged from father who abandoned the family when she was 14 y/o What is your relationship status?: living with partner Panel score (0-1 are the most socially isolated patients): 1 What type of physical activity do you participate in: walking Seatbelt use: always Helmet use: Yes Drive intox or ride w/intox limo driver: Yes Working smoke detector in home: Yes Fire extinguisher in home: No Carbon monox detector in home: Yes Firearms in home: No Do you feel safe at home: Yes Do you feel safe in your relationship?: Yes Victim of physical abuse: No Victim of emotional abuse: No Victim of sexual abuse: No Female Reproductive History Menstrual Age of Menarche: 10 Duration of menses: 3-5 days control method: pills History History 1 Para 0 Hx # Term Pregnancies 0 Multiple births 0 Hx # Pregnancies 0 Ectopic pregnancies 0 AB induced 0 Hx Number of Living Children 0 AB spontaneous 0 Meds Allergies and Home Medications Allergies Allergy/AdvReac Type Severity Reaction Status Date / Time paroxetine AdvReac Other (See Verified 05/26/22 09:38 Comment) Home Medications Medication Instructions Recorded Confirmed Type pen needle, diabetic 32 gauge x #100 ea 05/20/20 05/26/22 Rx 5/32 (BD Ultra-Fine Gissel Pen Needle) pen needle, diabetic 32 gauge x #100 ea 05/20/20 05/26/22 Rx 5/32 (BD Ultra-Fine Gissel Pen Needle) flash glucose scanning reader #1 ea 07/03/20 05/26/22 Rx (FreeStyle Leyla 2 [place]) blood sugar diagnostic (FreeStyle #50 ea 08/08/21 05/26/22 Rx Precision Elijah Strips) blood-glucose sensor (Dexcom G6 #3 ea 12/21/21 05/26/22 Rx Sensor device) insulin lispro 100 unit/mL 1 - 30 unit (0.01 - 0.3 mL) subcut 12/21/21 06/20/22 Rx subcutaneous pen (Humalog KwikPen .AC (4-5 times daily) #45 SYRGS (U-100) Insulin) lancets (Lancets,Ultra Thin) #100 ea 12/21/21 05/26/22 Rx insulin degludec 100 unit/mL (3 22 unit subcut BID 05/04/22 06/20/22 History mL) subcutaneous pen (Tresiba FlexTouch U-100 insulin) venlafaxine 75 mg capsule,extended 75 mg PO DAILY #45 caps 05/26/22 06/20/22 Rx release 24 hr Results Labs Result diagrams: 06/20/22 14:05 06/20/22 16:24 Labs: Laboratory Results - last 24 hr 06/20/22 06/20/22 06/20/22 14:05 14:05 14:05 WBC 38.25 H* RBC 5.14 Hgb 16.0 H Hct 50.9 H MCV 99 H MCH 31.1 MCHC 31.4 L RDW 12.9 Plt Count MPV Immature Gran % See Differential Neutrophils % 87.0 Band Neutrophils % 4 Lymphocytes % 5.0 Monocytes % 3.0 Eosinophils % 0.0 Basophils % 0.0 Metamyelocytes % 1 Nucleated RBC % 0.0 Absolute Neutrophils 34.81 H Absolute Lymphocytes 1.91 Absolute Monocytes 1.15 H Absolute Eosinophils 0.00 Absolute Basophils 0.00 RBC Morphology Normal VBG pH 6.86 L* VBG pCO2 18 L* VBG pO2 117 VBG HCO3 3 L VBG Total CO2 3 L VBG O2 Saturation 96 VBG Base Excess < -15 L VBG Lactate Sodium 141 Potassium 5.3 H Chloride 102 Carbon Dioxide < 5.0 L* Anion Gap 34.63159 H BUN 20 H Creatinine 1.4 H Est GFR (CKD-EPI 2020) 54.55 Glucose 676 H* Calcium 9.0 Phosphorus 6.8 H Magnesium 2.5 H Total Bilirubin 0.6 AST 28 ALT 19 Alkaline Phosphatase 185 H Total Protein 9.0 H Albumin 4.5 Urine Color Urine Clarity Urine pH Ur Specific [place] Urine Protein Urine Ketones Urine Blood Urine Nitrite Urine Bilirubin Urine Urobilinogen Ur Leukocyte Esterase Urine RBC Urine WBC Ur Epithelial Cells Urine Crystals Urine Bacteria Urine Casts Urine Mucus Ur Culture Indicated? Urine Glucose Urine Opiates Screen Urine Methadone Screen Ur Barbiturates Screen Ur Tricyclics Screen Ur Amphetamines Screen U Benzodiazepines Scrn Urine Cocaine Screen Ur THC Screen COVID-19 Source SARS-CoV-2 (PCR) 06/20/22 06/20/22 06/20/22 14:05 14:05 14:10 WBC RBC Hgb Hct MCV MCH MCHC RDW Plt Count MPV Immature Gran % Neutrophils % Band Neutrophils % Lymphocytes % Monocytes % Eosinophils % Basophils % Metamyelocytes % Nucleated RBC % Absolute Neutrophils Absolute Lymphocytes Absolute Monocytes Absolute Eosinophils Absolute Basophils RBC Morphology VBG pH VBG pCO2 VBG pO2 VBG HCO3 VBG Total CO2 VBG O2 Saturation VBG Base Excess VBG Lactate 6.1 H* Sodium Potassium Chloride Carbon Dioxide Anion Gap BUN Creatinine Est GFR (CKD-EPI 2020) Glucose Calcium Phosphorus Magnesium Cancelled Total Bilirubin AST ALT Alkaline Phosphatase Total Protein Albumin Urine Color Yellow Urine Clarity Clear Urine pH 5.5 Ur Specific [place] >= 1.030 H Urine Protein 30 H Urine Ketones >=160 H Urine Blood Trace-lysed H Urine Nitrite Negative Urine Bilirubin Negative Urine Urobilinogen 0.2 Ur Leukocyte Esterase Negative Urine RBC 0-2 Urine WBC 3-5 Ur Epithelial Cells Few Urine Crystals Negative Urine Bacteria Negative Urine Casts Negative Urine Mucus Trace Ur Culture Indicated? No Urine Glucose 500 H Urine Opiates Screen Urine Methadone Screen Ur Barbiturates Screen Ur Tricyclics Screen Ur Amphetamines Screen U Benzodiazepines Scrn Urine Cocaine Screen Ur THC Screen COVID-19 Source SARS-CoV-2 (PCR) 06/20/22 06/20/22 06/20/22 14:10 15:30 16:24 WBC RBC Hgb Hct MCV MCH MCHC RDW Plt Count MPV Immature Gran % Neutrophils % Band Neutrophils % Lymphocytes % Monocytes % Eosinophils % Basophils % Metamyelocytes % Nucleated RBC % Absolute Neutrophils Absolute Lymphocytes Absolute Monocytes Absolute Eosinophils Absolute Basophils RBC Morphology VBG pH VBG pCO2 VBG pO2 VBG HCO3 VBG Total CO2 VBG O2 Saturation VBG Base Excess VBG Lactate Sodium 143 Potassium Chloride 105 Carbon Dioxide 6.2 L Anion Gap 31.8 H BUN 19 H Creatinine 1.3 H Est GFR (CKD-EPI 2020) 59.63 Glucose 588 H* Calcium 8.7 Phosphorus Magnesium Total Bilirubin AST ALT Alkaline Phosphatase Total Protein Albumin Urine Color Urine Clarity Urine pH Ur Specific [place] Urine Protein Urine Ketones Urine Blood Urine Nitrite Urine Bilirubin Urine Urobilinogen Ur Leukocyte Esterase Urine RBC Urine WBC Ur Epithelial Cells Urine Crystals Urine Bacteria Urine Casts Urine Mucus Ur Culture Indicated? Urine Glucose Urine Opiates Screen Negative Urine Methadone Screen Negative Ur Barbiturates Screen Negative Ur Tricyclics Screen Negative Ur Amphetamines Screen Negative U Benzodiazepines Scrn Negative Urine Cocaine Screen Negative Ur THC Screen Positive A COVID-19 Source Nasal/Nares SARS-CoV-2 (PCR) Negative Last Vital Signs Temp 36.8 C 06/20/22 17:17 Pulse 128 H 06/20/22 18:00 Resp 20 06/20/22 18:00 BP 114/57 L 06/20/22 18:00 Pulse Ox 100 06/20/22 18:00
[2022-06-20 19:48] LABS: Anion Gap 24.8 mmol/L (3-11); BUN 15 mg/dL (7-18); CO2 8.2 mmol/L (21.0-32.0); CREATININE 1.1 mg/dL (0.55-1.02); Calcium 7.5 mg/dL (8.5-10.1); Chloride 107 mmol/L (98-107); Estimated GFR 72.86 (mL/min/1.73m2); Glucose 272 mg/dL (74-106); Potassium 4.8 mmol/L (3.5-5.1); Sodium 140 mmol/L (136-145)
[2022-06-20 19:59] LABS: Lab Add On Test DONE
[2022-06-20 20:33] LABS: Procalcitonin 4.6 ng/mL
[2022-06-20] MEDS: POTASSIUM CHLORIDE/D5-0.9%NACL 1,000 ML 200 MEQ IV (21:59)
[2022-06-20] MEDS: Insulin Glargine 300 UNITS/3 ML PEN 20 UNITS SC (22:12)
[2022-06-21] VITALS (116 sets, daily range): BP systolic 104–136; BP diastolic 56–91; PULSE 80–123; RESP 9–28; TEMP 37.2–38; O2SAT 96–100
[2022-06-21 00:01] LABS: Anion Gap 19.3 mmol/L (3-11); BUN 11 mg/dL (7-18); CO2 12.7 mmol/L (21.0-32.0); Calcium 7.9 mg/dL (8.5-10.1); Chloride 113 mmol/L (98-107); Estimated GFR 81.69 (mL/min/1.73m2); Glucose 158 mg/dL (74-106); Potassium 4.2 mmol/L (3.5-5.1); Sodium 145 mmol/L (136-145)
[2022-06-21] MEDS: INSULIN REGULAR IN 0.9 % NACL 100 UNIT/100 ML BAG 6 UNIT IV (02:35)
[2022-06-21] MEDS: POTASSIUM CHLORIDE/D5-0.9%NACL 1,000 ML 200 MEQ IV ×4 (03:17→23:30)
[2022-06-21 04:17] LABS: Anion Gap 10.2 mmol/L (3-11); BUN 9 mg/dL (7-18); CO2 19.8 mmol/L (21.0-32.0); Chloride 113 mmol/L (98-107); Estimated GFR 81.69 (mL/min/1.73m2); Glucose 120 mg/dL (74-106); Potassium 3.7 mmol/L (3.5-5.1); Sodium 143 mmol/L (136-145)
[2022-06-21 04:28] LABS: Abs Immature Grans 0.31 10^3/uL (0.0-0.06); Absolute Eosinophil Count 0.02 10^3/uL (0.0-0.7); Absolute Monocyte Count 1.36 10^3/uL (0.1-0.8); Basophils % 0.3; Eosinophils % 0.1; HCT 38.2 % (36.0-46.0); HGB 12.9 g/dL (11.2-15.7); Immature Grans % 1.4; Lymphocytes % 7.5; MCH 31.2 pg (27.0-33.0); MCHC 33.8 % (32.0-36.0); MCV 93 fL (80-95); MPV 10.3 fL (8.0-11.0); Neutrophils % 84.7; Platelet Count 354 10^3/uL (130-400); RBC 4.13 10^6/uL (3.93-5.22); RDW-SD 44.2 fL
[2022-06-21 04:33] LABS: Absolute Basophil Count 0.07 10^3/uL (0.0-0.2); Absolute Neutrophil Count 19.14 10^3/uL (1.2-6.7)
[2022-06-21 08:35] LABS: Anion Gap 12.9 mmol/L (3-11); BUN 8 mg/dL (7-18); CO2 18.1 mmol/L (21.0-32.0); CREATININE 0.8 mg/dL (0.55-1.02); Calcium 8.5 mg/dL (8.5-10.1); Chloride 114 mmol/L (98-107); Estimated GFR 106.77 (mL/min/1.73m2); Glucose 95 mg/dL (74-106); Potassium 3.8 mmol/L (3.5-5.1); Sodium 145 mmol/L (136-145)
[2022-06-21] MEDS: Venlafaxine 75 MG CAPCR PO (08:38)
--- NOTE | 2022-06-21 08:44 | PDOC.CMIN ---
- If Service Date Differs Date of service: 06/21/22 Time of Service: 08:44 Care Management Initial Assess REASON FOR HOSPITALIZATION:: DKA PAST MEDICAL HISTORY/PAST SURGICAL HISTORY:: All Active Problems . Type 1 diabetes mellitus (Acute). [facility] [place]; h/o hospitalizations for DKA. Hypokalemia (Acute). Sinus tachycardia (Acute). Anxiety and depression (Chronic). Uncontrolled type 1 diabetes mellitus (Chronic). Hypophosphatemia (Acute). Noncompliance with medication regimen (Chronic). Medical History . COVID-19. Crohn's disease. DKA (diabetic ketoacidosis). Elevated blood pressure affecting in third trimester, antepartum. Hypokalemia. Hypomagnesemia. Surgical History . Colonoscopy - MAC (03/06/17) PREVIOUS FUNCTIONAL STATUS/SOCIAL/FAMILY SUPPORTS:: Monica lives in [place], [place] with her nenita Elizabeth and daughter. 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 Monica is independent at baseline in the community. Per pt, she has difficulty affording her insulin due to her deductible. CURRENT FUNCTIONAL STATUS:: Monica was lying in bed when CM met with her. She is awake, alert and engages in conversation. Monica shares that she is unable to afford her medications because of her deductible. Monica does not have Medicaid because she has private insurance through her mom. ADVANCE DIRECTIVES:: None on file Has patient been provided with info about the portal/API?: Yes Did the patient sign up for the portal?: No CODE STATUS:: Full Code INSURANCE COVERAGE / FINANCIAL ISSUES:: BC BS. CBA CURRENT HOME/COMMUNITY SERVICES/EQUIPMENT:: Sees [facility], CGM PRIMARY CARE PHYSICIAN:: Hetal Leon POTENTIAL DISCHARGE NEEDS:: Follow up appointments with PCP, [facility] [place] and additional diabetic education. DELANO referral to help with medicaid, if eligible. PATIENT/FAMILY EDUCATION NEEDS:: Review discharge instructions, limitations, medications and plan to f/u with PCP following discharge. Ask Me Three. TRANSPORTATION:: Via private vehicle with fiance. PLAN:: Anticipate, Monica will be discharged home with no new [facility] services, when medically ready. She will transport via private vehicle with Fiance. Monica will require close outpatient follow up with community providers. CM will offer a DELANO if patient decides she would like to look into medicaid coverage.
[2022-06-21] MEDS: Insulin Glargine 300 UNITS/3 ML PEN 20 UNITS SC ×2 (10:01→21:11)
[2022-06-21 10:20] LABS: Anion Gap 13.6 mmol/L (3-11); BUN 8 mg/dL (7-18); CO2 17.4 mmol/L (21.0-32.0); CREATININE 0.9 mg/dL (0.55-1.02); Calcium 8.1 mg/dL (8.5-10.1); Chloride 111 mmol/L (98-107); Glucose 144 mg/dL (74-106); Potassium 3.8 mmol/L (3.5-5.1); Sodium 142 mmol/L (136-145)
--- NOTE | 2022-06-21 11:48 | PHA.REVIEW2 ---
Pharmacy Admission Review - Admission Clinical Review paroxetine Adverse Reaction (Verified 05/26/22 09:38) Other (See Comment) Resuscitation Status Full Code Height 5 ft 4 in Weight 63.4 kg - Renal Dosing Renal Dosing: BUN Cancelled 06/21/22 23:00 Creatinine Cancelled 06/21/22 23:00 Medications needing adjustments: Reviewed (Crcl ~97.75 mL/min current meds okay) - Anticoagulation Anticoagulation: Hgb 12.9 g/dL (11.2-15.7) D 06/21/22 04:01 Hct 38.2 % (36.0-46.0) 06/21/22 04:01 Plt Count 354 10^3/uL (130-400) 06/21/22 04:01 Creatinine Cancelled 06/21/22 23:00 DVT Prophylaxis: Reviewed Medications: Enoxaparin Therapeutic Anticoagulation: N/A - Opiate Usage Evaluate Pain Scale/Pains Meds: N/A - Relevant Labs Sodium Cancelled 06/21/22 23:00 Potassium Cancelled 06/21/22 23:00 Chloride Cancelled 06/21/22 23:00 Phosphorus 6.8 mg/dL (2.6-4.7) H 06/20/22 14:05 Magnesium 2.5 mg/dL (1.8-2.4) H 06/20/22 14:05 Magnesium Cancelled 06/20/22 14:05 Electrolytes, C-Reactive P, ESR: Reviewed - DM Control DM Control: Glucose Cancelled 06/21/22 23:00 Finger Stick Blood Glucose 138 Finger Stick Blood Glucose 138 Finger Stick Blood Glucose 124 Finger Stick Blood Glucose 124 Finger Stick Blood Glucose 124 Finger Stick Blood Glucose 82 Finger Stick Blood Glucose 82 Finger Stick Blood Glucose 72 Finger Stick Blood Glucose 72 Finger Stick Blood Glucose 81 Finger Stick Blood Glucose 81 Finger Stick Blood Glucose 105 Finger Stick Blood Glucose 105 Finger Stick Blood Glucose 109 Finger Stick Blood Glucose 109 DM Control: Reviewed Insulin Dosing, Diabetic Medication: Insulin drip ordered as well as scheduled insulin galrgine - Cardiac Review BP, HR, EF%: Reviewed (BP has been up and down so far this admission and HR has been elevated most of admission) - Qtc Review QTc: Reviewed (QTc 482 on admission) - IV to PO Switch IV Medications: Reviewed - Home Meds Home Med List reviewed: Reviewed Relevent Home Meds Not ordered & why?: insulin lispro and insulin degludec (has other insulins ordered) - Current meds Current Medication Order Review: Reviewed - Comments Comments/Follow Ups: Watch BP, HR, BG, labs and for med changes.
--- NOTE | 2022-06-21 12:05 | W.INDIABCONS ---
Date of service: 06/21/22 Time of Service: 12:05 Diabetes Inpatient Consult Reason for Visit: DM1 DESCRIPTION/ASSESSMENT: This is Monica's third admit to ICU with DKA this year. She is 21 years old with Dm1, has had multiple admissions yearly since diagnosis. Reports missing 1 dose of insulin prior to feeling sick and going to ER with blood sugar of 646 mg/dl. Also reports that her insurance has been all messed up and not getting Dexcom CGM supplies as ordered. Missing Dexcom transmitter, has 3 sensors at home, uses her iphone to track blood sugars. DM meds: lispro 1-30 u TID, degludec 22 units BID A1C: 10.4% (05/04/22). Poorly controlled. Monica did not want to talk about diabetes/diet at time of my visit. INTERVENTION: Provided Monica my contact information and transmitter to get continuous glucose monitor up and running again. Per care management, cannot get more outpatient support to help manage her Dm1 as not on medicaid. PLAN: will follow up via phone after discharge Time Spent in Nutritional Counseling and Treatment: 10
[2022-06-21] MEDS: Insulin Aspart 300 UNITS/3 ML PEN SC ×2 (13:28→17:40)
--- NOTE | 2022-06-21 14:27 | W.PM.PROGNOT ---
Date of Service Date of service: 06/21/22 Time of Service: 14:28 Assessment and Plan Assessment and plan (1) DKA (diabetic ketoacidosis): Assessment and plan: Insulin drip protocol. Lantus 20units SQ at 2100 last PM. Lantus 20 units this AM. Pt on BID long-acting insulin at home. Anion GAP closed. Resume her CGM; she needs a refill. Now on D5 1/2 NS with K. Will advance diet. Hold insulin drip and continue to monitor blood glucose, GAP and K+. (2) Leukocytosis: Status: Resolved Assessment and plan: No infectious source. Likely stress related from DKA Improving. Cont to monitor. (3) DVT prophylaxis: Status: Resolved Assessment and plan: lovenox. (4) Anxiety and depression: Status: Chronic Assessment and plan: Cont venlafaxine Subjective Subjective Patient reports: afebrile; denies nausea, vomiting or shortness of breath Interval history since last seen: Poor appetite this AM but tolerating liquids. Exam Narrative Exam Narrative: Gen: appears less fatigued. Thirsty but no appetite. HEENT: sclera clear.? CEDRIC Lungs: clear. Nonlabored breathing. CV: RRR, S1, S2 Abd: soft, NT, ND. Exts: No edema, calf pain. Psych: affect appropriate.? Oriented x 3. Objective Last Vital Signs Temp 37.2 C 06/21/22 13:44 Pulse 89 06/21/22 13:38 Resp 18 06/21/22 13:38 BP 124/77 06/21/22 13:38 Pulse Ox 98 06/21/22 13:44 Laboratory Results - last 24 hr 06/20/22 06/20/22 06/20/22 14:05 14:05 14:10 WBC 38.25 H* RBC 5.14 Hgb 16.0 H Hct 50.9 H MCV 99 H MCH 31.1 MCHC 31.4 L RDW 12.9 Plt Count MPV Immature Gran % See Differential Neutrophils % 87.0 Band Neutrophils % 4 Lymphocytes % 5.0 Monocytes % 3.0 Eosinophils % 0.0 Basophils % 0.0 Metamyelocytes % 1 Nucleated RBC % 0.0 Absolute Neutrophils 34.81 H Absolute Lymphocytes 1.91 Absolute Monocytes 1.15 H Absolute Eosinophils 0.00 Absolute Basophils 0.00 RBC Morphology Normal Sodium 141 Potassium 5.3 H Chloride 102 Carbon Dioxide < 5.0 L* Anion Gap 34.26016 H BUN 20 H Creatinine 1.4 H Est GFR (CKD-EPI 2020) 54.55 Glucose 676 H* POC Glucose Calcium 9.0 Phosphorus 6.8 H Magnesium 2.5 H Total Bilirubin 0.6 AST 28 ALT 19 Alkaline Phosphatase 185 H Total Protein 9.0 H Albumin 4.5 Procalcitonin Urine Color Yellow Urine Clarity Clear Urine pH 5.5 Ur Specific [place] >= 1.030 H Urine Protein 30 H Urine Ketones >=160 H Urine Blood Trace-lysed H Urine Nitrite Negative Urine Bilirubin Negative Urine Urobilinogen 0.2 Ur Leukocyte Esterase Negative Urine RBC 0-2 Urine WBC 3-5 Ur Epithelial Cells Few Urine Crystals Negative Urine Bacteria Negative Urine Casts Negative Urine Mucus Trace Ur Culture Indicated? No Urine Glucose 500 H Urine Opiates Screen Urine Methadone Screen Ur Barbiturates Screen Ur Tricyclics Screen Ur Amphetamines Screen U Benzodiazepines Scrn Urine Cocaine Screen Ur THC Screen COVID-19 Source SARS-CoV-2 (PCR) Add-On Test Request 06/20/22 06/20/22 06/20/22 14:10 14:40 15:30 WBC RBC Hgb Hct MCV MCH MCHC RDW Plt Count MPV Immature Gran % Neutrophils % Band Neutrophils % Lymphocytes % Monocytes % Eosinophils % Basophils % Metamyelocytes % Nucleated RBC % Absolute Neutrophils Absolute Lymphocytes Absolute Monocytes Absolute Eosinophils Absolute Basophils RBC Morphology Sodium Potassium Chloride Carbon Dioxide Anion Gap BUN Creatinine Est GFR (CKD-EPI 2020) Glucose POC Glucose Cancelled Calcium Phosphorus Magnesium Total Bilirubin AST ALT Alkaline Phosphatase Total Protein Albumin Procalcitonin Urine Color Urine Clarity Urine pH Ur Specific [place] Urine Protein Urine Ketones Urine Blood Urine Nitrite Urine Bilirubin Urine Urobilinogen Ur Leukocyte Esterase Urine RBC Urine WBC Ur Epithelial Cells Urine Crystals Urine Bacteria Urine Casts Urine Mucus Ur Culture Indicated? Urine Glucose Urine Opiates Screen Negative Urine Methadone Screen Negative Ur Barbiturates Screen Negative Ur Tricyclics Screen Negative Ur Amphetamines Screen Negative U Benzodiazepines Scrn Negative Urine Cocaine Screen Negative Ur THC Screen Positive A COVID-19 Source Nasal/Nares SARS-CoV-2 (PCR) Negative Add-On Test Request 06/20/22 06/20/22 06/20/22 16:24 19:30 19:30 WBC RBC Hgb Hct MCV MCH MCHC RDW Plt Count MPV Immature Gran % Neutrophils % Band Neutrophils % Lymphocytes % Monocytes % Eosinophils % Basophils % Metamyelocytes % Nucleated RBC % Absolute Neutrophils Absolute Lymphocytes Absolute Monocytes Absolute Eosinophils Absolute Basophils RBC Morphology Sodium 143 140 Potassium 4.8 Chloride 105 107 Carbon Dioxide 6.2 L 8.2 L Anion Gap 31.8 H 24.8 H BUN 19 H 15 Creatinine 1.3 H 1.1 H Est GFR (CKD-EPI 2020) 59.63 72.86 Glucose 588 H* 272 H POC Glucose Calcium 8.7 7.5 L Phosphorus Magnesium Total Bilirubin AST ALT Alkaline Phosphatase Total Protein Albumin Procalcitonin Urine Color Urine Clarity Urine pH Ur Specific [place] Urine Protein Urine Ketones Urine Blood Urine Nitrite Urine Bilirubin Urine Urobilinogen Ur Leukocyte Esterase Urine RBC Urine WBC Ur Epithelial Cells Urine Crystals Urine Bacteria Urine Casts Urine Mucus Ur Culture Indicated? Urine Glucose Urine Opiates Screen Urine Methadone Screen Ur Barbiturates Screen Ur Tricyclics Screen Ur Amphetamines Screen U Benzodiazepines Scrn Urine Cocaine Screen Ur THC Screen COVID-19 Source SARS-CoV-2 (PCR) Add-On Test Request DONE 06/20/22 06/20/22 06/20/22 19:30 21:00 23:00 WBC RBC Hgb Hct MCV MCH MCHC RDW Plt Count MPV Immature Gran % Neutrophils % Band Neutrophils % Lymphocytes % Monocytes % Eosinophils % Basophils % Metamyelocytes % Nucleated RBC % Absolute Neutrophils Absolute Lymphocytes Absolute Monocytes Absolute Eosinophils Absolute Basophils RBC Morphology Sodium Cancelled Cancelled Potassium Cancelled Cancelled Chloride Cancelled Cancelled Carbon Dioxide Cancelled Cancelled Anion Gap Cancelled Cancelled BUN Cancelled Cancelled Creatinine Cancelled Cancelled Est GFR (CKD-EPI 2020) Cancelled Cancelled Glucose Cancelled Cancelled POC Glucose Calcium Cancelled Cancelled Phosphorus Magnesium Total Bilirubin AST ALT Alkaline Phosphatase Total Protein Albumin Procalcitonin 4.6 Urine Color Urine Clarity Urine pH Ur Specific [place] Urine Protein Urine Ketones Urine Blood Urine Nitrite Urine Bilirubin Urine Urobilinogen Ur Leukocyte Esterase Urine RBC Urine WBC Ur Epithelial Cells Urine Crystals Urine Bacteria Urine Casts Urine Mucus Ur Culture Indicated? Urine Glucose Urine Opiates Screen Urine Methadone Screen Ur Barbiturates Screen Ur Tricyclics Screen Ur Amphetamines Screen U Benzodiazepines Scrn Urine Cocaine Screen Ur THC Screen COVID-19 Source SARS-CoV-2 (PCR) Add-On Test Request 06/20/22 06/21/22 06/21/22 23:40 03:00 04:01 WBC 22.60 H RBC 4.13 Hgb 12.9 D Hct 38.2 MCV 93 D MCH 31.2 MCHC 33.8 D RDW 13.0 Plt Count 354 MPV 10.3 Immature Gran % 1.4 Neutrophils % 84.7 Band Neutrophils % Lymphocytes % 7.5 Monocytes % 6.0 Eosinophils % 0.1 Basophils % 0.3 Metamyelocytes % Nucleated RBC % 0.0 Absolute Neutrophils 19.14 H Absolute Lymphocytes 1.70 Absolute Monocytes 1.36 H Absolute Eosinophils 0.02 Absolute Basophils 0.07 RBC Morphology Sodium 145 Cancelled Potassium 4.2 Cancelled Chloride 113 H Cancelled Carbon Dioxide 12.7 L Cancelled Anion Gap 19.3 H Cancelled BUN 11 Cancelled Creatinine 1.0 Cancelled Est GFR (CKD-EPI 2020) 81.69 Cancelled Glucose 158 H Cancelled POC Glucose Calcium 7.9 L Cancelled Phosphorus Magnesium Total Bilirubin AST ALT Alkaline Phosphatase Total Protein Albumin Procalcitonin Urine Color Urine Clarity Urine pH Ur Specific [place] Urine Protein Urine Ketones Urine Blood Urine Nitrite Urine Bilirubin Urine Urobilinogen Ur Leukocyte Esterase Urine RBC Urine WBC Ur Epithelial Cells Urine Crystals Urine Bacteria Urine Casts Urine Mucus Ur Culture Indicated? Urine Glucose Urine Opiates Screen Urine Methadone Screen Ur Barbiturates Screen Ur Tricyclics Screen Ur Amphetamines Screen U Benzodiazepines Scrn Urine Cocaine Screen Ur THC Screen COVID-19 Source SARS-CoV-2 (PCR) Add-On Test Request 06/21/22 06/21/22 06/21/22 04:01 05:00 07:00 WBC RBC Hgb Hct MCV MCH MCHC RDW Plt Count MPV Immature Gran % Neutrophils % Band Neutrophils % Lymphocytes % Monocytes % Eosinophils % Basophils % Metamyelocytes % Nucleated RBC % Absolute Neutrophils Absolute Lymphocytes Absolute Monocytes Absolute Eosinophils Absolute Basophils RBC Morphology Sodium 143 Cancelled Cancelled Potassium 3.7 Cancelled Cancelled Chloride 113 H Cancelled Cancelled Carbon Dioxide 19.8 L Cancelled Cancelled Anion Gap 10.2 Cancelled Cancelled BUN 9 Cancelled Cancelled Creatinine 1.0 Cancelled Cancelled Est GFR (CKD-EPI 2020) 81.69 Cancelled Cancelled Glucose 120 H Cancelled Cancelled POC Glucose Calcium 8.0 L Cancelled Cancelled Phosphorus Magnesium Total Bilirubin AST ALT Alkaline Phosphatase Total Protein Albumin Procalcitonin Urine Color Urine Clarity Urine pH Ur Specific [place] Urine Protein Urine Ketones Urine Blood Urine Nitrite Urine Bilirubin Urine Urobilinogen Ur Leukocyte Esterase Urine RBC Urine WBC Ur Epithelial Cells Urine Crystals Urine Bacteria Urine Casts Urine Mucus Ur Culture Indicated? Urine Glucose Urine Opiates Screen Urine Methadone Screen Ur Barbiturates Screen Ur Tricyclics Screen Ur Amphetamines Screen U Benzodiazepines Scrn Urine Cocaine Screen Ur THC Screen COVID-19 Source SARS-CoV-2 (PCR) Add-On Test Request 06/21/22 06/21/22 06/21/22 08:03 09:00 09:55 WBC RBC Hgb Hct MCV MCH MCHC RDW Plt Count MPV Immature Gran % Neutrophils % Band Neutrophils % Lymphocytes % Monocytes % Eosinophils % Basophils % Metamyelocytes % Nucleated RBC % Absolute Neutrophils Absolute Lymphocytes Absolute Monocytes Absolute Eosinophils Absolute Basophils RBC Morphology Sodium 145 Cancelled 142 Potassium 3.8 Cancelled 3.8 Chloride 114 H Cancelled 111 H Carbon Dioxide 18.1 L Cancelled 17.4 L Anion Gap 12.9 H Cancelled 13.6 H BUN 8 Cancelled 8 Creatinine 0.8 Cancelled 0.9 Est GFR (CKD-EPI 2020) 106.77 Cancelled 92.70 Glucose 95 Cancelled 144 H POC Glucose Calcium 8.5 Cancelled 8.1 L Phosphorus Magnesium Total Bilirubin AST ALT Alkaline Phosphatase Total Protein Albumin Procalcitonin Urine Color Urine Clarity Urine pH Ur Specific [place] Urine Protein Urine Ketones Urine Blood Urine Nitrite Urine Bilirubin Urine Urobilinogen Ur Leukocyte Esterase Urine RBC Urine WBC Ur Epithelial Cells Urine Crystals Urine Bacteria Urine Casts Urine Mucus Ur Culture Indicated? Urine Glucose Urine Opiates Screen Urine Methadone Screen Ur Barbiturates Screen Ur Tricyclics Screen Ur Amphetamines Screen U Benzodiazepines Scrn Urine Cocaine Screen Ur THC Screen COVID-19 Source SARS-CoV-2 (PCR) Add-On Test Request 06/21/22 06/21/22 06/21/22 11:00 13:00 15:00 WBC RBC Hgb Hct MCV MCH MCHC RDW Plt Count MPV Immature Gran % Neutrophils % Band Neutrophils % Lymphocytes % Monocytes % Eosinophils % Basophils % Metamyelocytes % Nucleated RBC % Absolute Neutrophils Absolute Lymphocytes Absolute Monocytes Absolute Eosinophils Absolute Basophils RBC Morphology Sodium Cancelled Cancelled Cancelled Potassium Cancelled Cancelled Cancelled Chloride Cancelled Cancelled Cancelled Carbon Dioxide Cancelled Cancelled Cancelled Anion Gap Cancelled Cancelled Cancelled BUN Cancelled Cancelled Cancelled Creatinine Cancelled Cancelled Cancelled Est GFR (CKD-EPI 2020) Cancelled Cancelled Cancelled Glucose Cancelled Cancelled Cancelled POC Glucose Calcium Cancelled Cancelled Cancelled Phosphorus Magnesium Total Bilirubin AST ALT Alkaline Phosphatase Total Protein Albumin Procalcitonin Urine Color Urine Clarity Urine pH Ur Specific [place] Urine Protein Urine Ketones Urine Blood Urine Nitrite Urine Bilirubin Urine Urobilinogen Ur Leukocyte Esterase Urine RBC Urine WBC Ur Epithelial Cells Urine Crystals Urine Bacteria Urine Casts Urine Mucus Ur Culture Indicated? Urine Glucose Urine Opiates Screen Urine Methadone Screen Ur Barbiturates Screen Ur Tricyclics Screen Ur Amphetamines Screen U Benzodiazepines Scrn Urine Cocaine Screen Ur THC Screen COVID-19 Source SARS-CoV-2 (PCR) Add-On Test Request 06/21/22 06/21/22 06/21/22 17:00 19:00 21:00 WBC RBC Hgb Hct MCV MCH MCHC RDW Plt Count MPV Immature Gran % Neutrophils % Band Neutrophils % Lymphocytes % Monocytes % Eosinophils % Basophils % Metamyelocytes % Nucleated RBC % Absolute Neutrophils Absolute Lymphocytes Absolute Monocytes Absolute Eosinophils Absolute Basophils RBC Morphology Sodium Cancelled Cancelled Cancelled Potassium Cancelled Cancelled Cancelled Chloride Cancelled Cancelled Cancelled Carbon Dioxide Cancelled Cancelled Cancelled Anion Gap Cancelled Cancelled Cancelled BUN Cancelled Cancelled Cancelled Creatinine Cancelled Cancelled Cancelled Est GFR (CKD-EPI 2020) Cancelled Cancelled Cancelled Glucose Cancelled Cancelled Cancelled POC Glucose Calcium Cancelled Cancelled Cancelled Phosphorus Magnesium Total Bilirubin AST ALT Alkaline Phosphatase Total Protein Albumin Procalcitonin Urine Color Urine Clarity Urine pH Ur Specific [place] Urine Protein Urine Ketones Urine Blood Urine Nitrite Urine Bilirubin Urine Urobilinogen Ur Leukocyte Esterase Urine RBC Urine WBC Ur Epithelial Cells Urine Crystals Urine Bacteria Urine Casts Urine Mucus Ur Culture Indicated? Urine Glucose Urine Opiates Screen Urine Methadone Screen Ur Barbiturates Screen Ur Tricyclics Screen Ur Amphetamines Screen U Benzodiazepines Scrn Urine Cocaine Screen Ur THC Screen COVID-19 Source SARS-CoV-2 (PCR) Add-On Test Request 06/21/22 23:00 WBC RBC Hgb Hct MCV MCH MCHC RDW Plt Count MPV Immature Gran % Neutrophils % Band Neutrophils % Lymphocytes % Monocytes % Eosinophils % Basophils % Metamyelocytes % Nucleated RBC % Absolute Neutrophils Absolute Lymphocytes Absolute Monocytes Absolute Eosinophils Absolute Basophils RBC Morphology Sodium Cancelled Potassium Cancelled Chloride Cancelled Carbon Dioxide Cancelled Anion Gap Cancelled BUN Cancelled Creatinine Cancelled Est GFR (CKD-EPI 2020) Cancelled Glucose Cancelled POC Glucose Calcium Cancelled Phosphorus Magnesium Total Bilirubin AST ALT Alkaline Phosphatase Total Protein Albumin Procalcitonin Urine Color Urine Clarity Urine pH Ur Specific [place] Urine Protein Urine Ketones Urine Blood Urine Nitrite Urine Bilirubin Urine Urobilinogen Ur Leukocyte Esterase Urine RBC Urine WBC Ur Epithelial Cells Urine Crystals Urine Bacteria Urine Casts Urine Mucus Ur Culture Indicated? Urine Glucose Urine Opiates Screen Urine Methadone Screen Ur Barbiturates Screen Ur Tricyclics Screen Ur Amphetamines Screen U Benzodiazepines Scrn Urine Cocaine Screen Ur THC Screen COVID-19 Source SARS-CoV-2 (PCR) Add-On Test Request
[2022-06-21 14:31] LABS: Anion Gap 9.8 mmol/L (3-11); BUN 5 mg/dL (7-18); CO2 19.2 mmol/L (21.0-32.0); CREATININE 0.7 mg/dL (0.55-1.02); Calcium 8.3 mg/dL (8.5-10.1); Chloride 111 mmol/L (98-107); Estimated GFR 125.33 (mL/min/1.73m2); Glucose 132 mg/dL (74-106); Potassium 3.3 mmol/L (3.5-5.1); Sodium 140 mmol/L (136-145)
[2022-06-21] MEDS: Potassium Chloride 20 MEQ TABCR PO ×2 (15:30→20:13)
[2022-06-21 19:21] LABS: Anion Gap 12.7 mmol/L (3-11); BUN 5 mg/dL (7-18); CO2 20.3 mmol/L (21.0-32.0); CREATININE 0.8 mg/dL (0.55-1.02); Calcium 8.5 mg/dL (8.5-10.1); Chloride 110 mmol/L (98-107); Estimated GFR 106.77 (mL/min/1.73m2); Glucose 151 mg/dL (74-106); Potassium 3.7 mmol/L (3.5-5.1); Sodium 143 mmol/L (136-145)
[2022-06-21] MEDS: Acetaminophen 325 MG TAB PO (20:22)
[2022-06-21] MEDS: Normal Saline Flush 10 ML SYR IVP (21:11)
[2022-06-22] VITALS (56 sets, daily range): BP systolic 51–141; BP diastolic 27–95; PULSE 67–98; RESP 8–27; TEMP 36.9–37.2; O2SAT 90–97
[2022-06-22 00:59] LABS: Anion Gap 8.9 mmol/L (3-11); BUN 3 mg/dL (7-18); CO2 22.1 mmol/L (21.0-32.0); CREATININE 0.6 mg/dL (0.55-1.02); Calcium 8.1 mg/dL (8.5-10.1); Chloride 111 mmol/L (98-107); Estimated GFR 130.07 (mL/min/1.73m2); Glucose 90 mg/dL (74-106); Potassium 3.1 mmol/L (3.5-5.1); Sodium 142 mmol/L (136-145)
[2022-06-22] MEDS: POTASSIUM CHLORIDE/D5-0.9%NACL 1,000 ML 200 MEQ IV (01:59)
[2022-06-22 06:23] LABS: Abs Immature Grans 0.07 10^3/uL (0.0-0.06); Absolute Basophil Count 0.03 10^3/uL (0.0-0.2); Absolute Eosinophil Count 0.03 10^3/uL (0.0-0.7); Absolute Lymphocyte Count 1.37 10^3/uL (1.2-3.4); Absolute Monocyte Count 0.55 10^3/uL (0.1-0.8); Absolute Neutrophil Count 6.21 10^3/uL (1.2-6.7); Basophils % 0.4; Eosinophils % 0.4; HCT 34.3 % (36.0-46.0); HGB 11.5 g/dL (11.2-15.7); Immature Grans % 0.8; Lymphocytes % 16.6; MCHC 33.5 % (32.0-36.0); MCV 93 fL (80-95); MPV 10.5 fL (8.0-11.0); Monocytes % 6.7; Neutrophils % 75.1; Platelet Count 257 10^3/uL (130-400); RBC 3.71 10^6/uL (3.93-5.22); RDW 13.2 % (11.7-14.6); RDW-SD 45.1 fL; WBC 8.26 10^3/uL (4.4-10.8)
[2022-06-22 06:30] LABS: Anion Gap 7.9 mmol/L (3-11); BUN 3 mg/dL (7-18); CO2 22.1 mmol/L (21.0-32.0); CREATININE 0.6 mg/dL (0.55-1.02); Calcium 8.2 mg/dL (8.5-10.1); Chloride 115 mmol/L (98-107); Estimated GFR 130.07 (mL/min/1.73m2); Glucose 66 mg/dL (74-106); Magnesium 1.5 mg/dL (1.8-2.4); Potassium 3.6 mmol/L (3.5-5.1); Sodium 145 mmol/L (136-145)
[2022-06-22] MEDS: Potassium Chloride 20 MEQ TABCR PO (07:35)
[2022-06-22] MEDS: Venlafaxine 75 MG CAPCR PO (07:35)
[2022-06-22] MEDS: Normal Saline Flush 10 ML SYR IVP (07:36)
--- NOTE | 2022-06-22 08:18 | NUR.NOTE ---
follow up appointment at [facility] internal medicine with Primary care physician on June 29 at 330 PM Nursing Note:
--- NOTE | 2022-06-22 08:29 | W.PM.DS.N ---
Date of service: 06/22/22 Time of Service: 08:29 DS: Diagnosis Discharge Diagnosis (1) DKA (diabetic ketoacidosis): (2) Leukocytosis: Status: Resolved (3) DVT prophylaxis: Status: Resolved (4) Anxiety and depression: Status: Chronic Discharge Plan Disposition Patient Disposition: HOME Condition: Good Discharge Details Reason For Visit: Diabetic Ketoacidosis Admit Date/Time: 06/20/22 14:40 Admit Provider: Artemio Hadley Attending Provider: Artemio Hadley Primary Care Provider: Hetal Leon [facility] Hospital Course: This is a 21 yo female with a PMH of DM1, several admissions for DKA.? She presented after developing emesis and elevated blood glucose while at work.? Her mother relates some of the history to the ED physician.? The patient and her mother work together.? Mother and patient stated that she was in her usual state of health this AM and went to work.? She then had an episode of emesis and developed confusion.? She endorsed missing one dose of insulin the night before admission.? No witnessed trauma, seizure.? She denied fever/chills, cough, runny nose, abd pain/diarrhea, dysuria. In the ED her glucose was 646.? VBG pH of 6.86. VBG lactate 6.1. K 5.3. Anion Gap 34. WBC count 38. HGB 16. Creatinine 1.4. UA negative for evidence of infection. A1c 10.4 on 05/04/22. Insulin drip initiated and pt admitted to the ICU for further care.? Her DKA resolved. WBC count normalized. Her appetite was returning and she had no emesis. PCP follow up has been arranged. Continue to follow up with her on site coordinator as per their recommendation. Home Meds and New Rx's Prescriptions: Continued venlafaxine 75 mg capsule,extended release 24hr 75 mg PO DAILY Qty: 45 0RF (DME) FreeStyle Precision Elijah Strips Strip See Rx Instructions .ROUTE .MEDSUPPLY Qty: 50 11RF Rx Instructions: As directed insulin degludec [Tresiba FlexTouch U-100] 100 unit/mL (3 mL) insulin pen 22 unit SUBCUT BID (DME) pen needle, diabetic [BD Ultra-Fine Gissel Pen Needle] 32 gauge x 5/32 needle 1 device miscellaneous DIRECTED Qty: 100 0RF (DME) pen needle, diabetic [BD Ultra-Fine Gissel Pen Needle] 32 gauge x 5/32 needle See Rx Instructions .ROUTE .COMPLEX Qty: 100 0RF Rx Instructions: 1 device as directed ;use as directed (DME) FreeStyle Leyla 2 [place] Misc See Rx Instructions .ROUTE .MEDSUPPLY Qty: 1 0RF Rx Instructions: As directed (DME) Dexcom G6 Sensor Device See Rx Instructions .Route Qty: 3 0RF Rx Instructions: As directed (DME) lancets [Lancets,Ultra Thin] Misc See Rx Instructions .Route Qty: 100 0RF Rx Instructions: For back up fingerstick checks AC/HS insulin lispro [Humalog KwikPen Insulin] 100 unit/mL insulin pen 1 - 30 unit SC .AC (4-5 times daily) MDD 150 units Qty: 45 4RF Rx Instructions: 1 unit: 10 grams of carbs. Corrective scale 1:40>150 Discharge Instructions Additional Instructions: Please follow up with your primary care physician. An appointment has been made for you on June 29 at 330 PM. If you cannot make that appointment, please call them to change it to your convenience. Activity:: Activity as Tolerated Equipment/Supplies:: No Equipment Needed Diet:: Carb Counting Discharge Orders Discharge Orders: Discharge Order (Routine); Ordered 06/22/22 Ordered By: Artemio Hadley DS: Summary Time Spent with Patient providing and/or coordinating discharge services: Greater than 30 minutes Status at Discharge Functional status at discharge: independent ambulation Overall status at discharge: patient is progressing back to baseline Mental Status: mental status grossly normal Speech and Movement: speech and movement normal Mood: congruent mood Affect: normal affect Exam Narrative Exam Narrative: Gen: Alert. Cooperative. NAD HEENT: sclera clear.? CEDRIC Lungs: clear. Nonlabored breathing. CV: RRR, S1, S2 Abd: soft, NT, ND. Exts: No edema, calf pain. Psych: affect appropriate.? Oriented x 3. Psych Mental Status: mental status grossly normal Speech and Movement: speech and movement normal Mood: congruent mood Affect: normal affect DS: Data Vitals/I&O Vitals and I&O: Vital Signs Temperature 36.9 C 06/22/22 07:48 Temperature Source Temporal Artery Scan 06/22/22 07:48 Pulse 79 06/22/22 07:53 Pulse 95 H 06/22/22 07:40 Respiratory Rate 11 L 06/22/22 07:40 Respiratory Effort Non-Labored 06/22/22 07:48 Respiratory Depth Normal 06/22/22 07:48 Respiratory Pattern Normal 06/22/22 07:48 Blood Pressure 127/95 H 06/22/22 06:03 Blood Pressure Mean 102 06/22/22 06:03 Blood Pressure Position Supine 06/21/22 08:45 Pulse Oximetry 90 L 06/22/22 02:40 Oxygen Delivery Method Room Air 06/22/22 07:48 Oxygen Flow Rate 0 06/22/22 07:48 Pain Level 0 06/22/22 07:48 Intake & Output 06/21/22 06/21/22 06/22/22 11:59 23:59 11:59 Intake Total 2059.384 / 4377.650 2318.266 / 4377.650 2736.283 / 2736.283 Output Total 1525 / 2875 1000 / 2875 800 / 800 Balance 534.384 / 7649.720 3192.266 / 7740.551 0506.283 / 1936.283 Intake: IV 2059.384 / 4037.650 1978.266 / 4037.650 2496.283 / 2496.283 Oral 340 / 340 240 / 240 Output: Urine 1525 / 2875 1000 / 2875 800 / 800 Other: Urine Color Pale Yellow Yellow Yellow Straw Urine Appearance Clear Clear Clear Urine Odor Normal Comment Coello catheter dc'd at 0845 this am. 75cc clear pale yellow urine in collection bag at time of removal. Pt up to bedside commode and voided. No issues Pt up to bedside commode and voided. No issues Voiding Methods Bedside Commode Data Completed and Pending Labs on day of discharge: Labs from last 24 hours 06/22/22 06/22/22 06/22/22 05:15 05:15 00:22 WBC 8.26 RBC 3.71 L Hgb 11.5 Hct 34.3 L MCV 93 MCH 31.0 MCHC 33.5 RDW 13.2 Plt Count 257 MPV 10.5 Immature Gran % 0.8 Neutrophils % 75.1 Lymphocytes % 16.6 Monocytes % 6.7 Eosinophils % 0.4 Basophils % 0.4 Nucleated RBC % 0.0 Absolute Neutrophils 6.21 Absolute Lymphocytes 1.37 Absolute Monocytes 0.55 Absolute Eosinophils 0.03 Absolute Basophils 0.03 Sodium 145 142 Potassium 3.6 3.1 L Chloride 115 H 111 H Carbon Dioxide 22.1 22.1 Anion Gap 7.9 8.9 BUN 3 L 3 L Creatinine 0.6 0.6 Est GFR (CKD-EPI 2020) 130.07 130.07 Glucose 66 L 90 Calcium 8.2 L 8.1 L Magnesium 1.5 L 06/21/22 06/21/22 06/21/22 19:04 14:15 09:55 WBC RBC Hgb Hct MCV MCH MCHC RDW Plt Count MPV Immature Gran % Neutrophils % Lymphocytes % Monocytes % Eosinophils % Basophils % Nucleated RBC % Absolute Neutrophils Absolute Lymphocytes Absolute Monocytes Absolute Eosinophils Absolute Basophils Sodium 143 140 142 Potassium 3.7 3.3 L 3.8 Chloride 110 H 111 H 111 H Carbon Dioxide 20.3 L 19.2 L 17.4 L Anion Gap 12.7 H 9.8 13.6 H BUN 5 L 5 L 8 Creatinine 0.8 0.7 0.9 Est GFR (CKD-EPI 2020) 106.77 125.33 92.70 Glucose 151 H 132 H 144 H Calcium 8.5 8.3 L 8.1 L Magnesium 06/21/22 08:03 WBC RBC Hgb Hct MCV MCH MCHC RDW Plt Count MPV Immature Gran % Neutrophils % Lymphocytes % Monocytes % Eosinophils % Basophils % Nucleated RBC % Absolute Neutrophils Absolute Lymphocytes Absolute Monocytes Absolute Eosinophils Absolute Basophils Sodium 145 Potassium 3.8 Chloride 114 H Carbon Dioxide 18.1 L Anion Gap 12.9 H BUN 8 Creatinine 0.8 Est GFR (CKD-EPI 2020) 106.77 Glucose 95 Calcium 8.5 Magnesium PFSH All Active Problems Type 1 diabetes mellitus (Acute) [facility] End[facility]; h/o hospitalizations for DKA Hypokalemia (Acute) Sinus tachycardia (Acute) Anxiety and depression (Chronic) Uncontrolled type 1 diabetes mellitus (Chronic) Hypophosphatemia (Acute) Noncompliance with medication regimen (Chronic) Medical History COVID-19 Crohn's disease DKA (diabetic ketoacidosis) Elevated blood pressure affecting in third trimester, antepartum Hypokalemia Hypomagnesemia Surgical History Colonoscopy - [facility] (03/06/17) Family History Maternal Grandfather Breast cancer Paternal Cousin Diabetes Maternal Grandfather Heart disease Mother Hypertension Father Mental health disorder Sister Mental health disorder Sister Mental health disorder Social History Smoking/Tobacco Use Status: Current every day Tobacco Type: e-cigarettes Smoking risk assessment performed?: Yes Alcohol Intake: never Drug use: Occasionally Substance use type: marijuana Adopted: No Caregiver/Support person: Yes (2 month old ricardo) Household members: significant other, children and other Details: 05/2022: Lives with boyfriend and 2 y/o dtr Glenn Housing: house Number of Children: 1 Communication Needs: None Education Level: high school 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
[2022-06-22] MEDS: Insulin Glargine 300 UNITS/3 ML PEN 20 UNITS SC (09:00)
--- NOTE | 2022-06-22 09:23 | PDOC.CMDIS ---
- If Service Date Differs Date of service: 06/22/22 Time of Service: 09:23 LACE Index Scoring Tool - Questions: Length of Stay (in days): 2 Acuity (Admit via E.D.?): Yes Comorbidities: Diabetes w/o Complication (Frequently hospitalized for DKA) E.D. Visits: 5 - Answers: Total Score: 10 Risk of Readmission: High Risk Care Management Discharge Reason for Hospitalization: DKA Discharge Plan: Monica is discharged home via private vehicle with family. Monica will follow up with her PCP on 06/29/22, as scheduled and will continue outpatient follow up with [facility]. Monica identified that she has a difficult time affording her prescriptions. She is interested in finding out if she is eligible for medicaid. CM reviewed with Gaye at [facility] and faxed a referral. Patient/Family Education Needs: Review discharge instructions, medications, limitations and plan to follow up with community providers. Discuss ask me three and goals of self care.
== END 2022-06-22 09:30 | disposition home or self-care (01) | DRG 638 ==
LOC: ER 15:40 → ICU 16:47
PROVIDERS: Family Medicine; Admitting Provider Family Medicine; Emergency Provider Student in an Organized Health Care Education/Training Program; PCP Nurse Practitioner Family; Visit Provider Family Medicine
DX: E10.10 Type 1 diabetes mellitus with ketoacidosis without coma (principal); K50.90 Crohn's disease, unspecified, without complications; D72.829 Elevated white blood cell count, unspecified; E86.0 Dehydration; E87.6 Hypokalemia; E83.39 Other disorders of phosphorus metabolism; Z91.14 Patient's other noncompliance with medication regimen; R00.0 Tachycardia, unspecified; Z86.16 Personal history of COVID-19; F17.290 Nicotine dependence, other tobacco product, uncomplicated; F12.90 Cannabis use, unspecified, uncomplicated; F41.8 Other specified anxiety disorders
CPT/HCPCS: 36415; 36416; 51702; 80048; 80053; 80307; 81025; 82805; 82962; 84145; 87635; 93005; 96361; 96365; 96366; 96376; 99291; J1650; 81003; 81015; 83605; 83735; 84100; 85025; 93010; 99223; 99233; 99239

== ENCOUNTER 2023-01-13 15:44 | Emergency (ER) | payer OTHER, SELFPAY ==
--- NOTE | 2023-01-13 | DI.CT_ITS ---
Exam(s) CT ABDOMEN PELVIS WO EXAM: CT ABDOMEN PELVIS WO CLINICAL HISTORY: right back pain, fever. TECHNIQUE: Imaging Protocol: Axial computed tomography images with coronal and sagittal reformatted images were created and reviewed. Oral: yes / no COMPARISON: CT CT ABDOMEN PELVIS W from 03/10/2019 FINDINGS: ABDOMEN: Lung Bases: Normal where visualized. Liver: Normal density. No measurable mass. Gallbladder and biliary tract: No radiodense calculus or dilation. Pancreas: Normal density, no abnormal calcifications or inflammatory process. Spleen: Normal. Kidneys: Normal size, contour and axis. No radiodense stones or obstructive uropathy. No masses seen. Adrenal glands: No masses seen. Lymph nodes: Within normal limits. Abdominal Aorta: Abdominal portion non-dilated. PELVIS: Bladder: Symmetric distention, no gross wall thickening. Bowel: No obstruction or bowel wall thickening. Peritoneal cavity: No ascites, collection or mesenteric inflammatory response. Reproductive organs: Uterus retroverted. Bones: Scoliosis. No fractures or suspicious bony lesion. IMPRESSION: Unremarkable CT scan of the abdomen and pelvis. RADIATION DOSE DELIVERED: 859.56mGy.cm Total DLP DATA REPOSITORY: All CT scans at this facility are submitted to the National Radiology Data Registry (NRDR) Dose Index Registry (DIR) with the [employer] [place] [employer] (ACR). RADIATION OPTIMIZATION: All CT scans at this facility use at least one of these dose optimization te chniques: automated exposure control; mA and/or kV adjustment per patient size (includes targeted exa ms where dose is matched to clinical indication); or iterative reconstruction.
[2023-01-13 15:46] VITALS: BP 114/70; PULSE 120; RESP 18; TEMP 39.4; O2SAT 100
[2023-01-13 16:31] LABS: Abs Immature Grans 0.03 10^3/uL (0.0-0.06); Absolute Basophil Count 0.05 10^3/uL (0.0-0.2); Absolute Eosinophil Count 0.02 10^3/uL (0.0-0.7); Absolute Lymphocyte Count 0.45 10^3/uL (1.2-3.4); Absolute Monocyte Count 0.53 10^3/uL (0.1-0.8); Absolute Neutrophil Count 9.25 10^3/uL (1.2-6.7); Basophils % 0.5; Eosinophils % 0.2; HCT 40.6 % (36.0-46.0); HGB 13.6 g/dL (11.2-15.7); Immature Grans % 0.3; Lymphocytes % 4.4; MCH 30.4 pg (27.0-33.0); MCHC 33.5 % (32.0-36.0); MCV 91 fL (80-95); MPV 10.5 fL (8.0-11.0); Monocytes % 5.1; Neutrophils % 89.5; Platelet Count 305 10^3/uL (130-400); RBC 4.47 10^6/uL (3.93-5.22); RDW-SD 40.5 fL; WBC 10.33 10^3/uL (4.4-10.8)
[2023-01-13 16:36] LABS: Lactate 5.9 mmol/L (0.6-1.4)
[2023-01-13 16:45] LABS: C-Reactive Protein 19.36 mg/dL (0.0-0.3)
[2023-01-13 16:48] LABS: Bilirubin Negative (Negative); Blood Small (Negative); Clarity Cloudy (Clear); Glucose >=1000 mg/dL (Negative); Ketones 40 mg/dL (Negative); Leukocyte Esterase Small (Negative); Nitrite Negative (Negative); Specific Gravity 1.015 (1.005-1.025); Urobilinogen 0.2 mg/dL (Up to 0.2)
[2023-01-13 16:49] LABS: ALT 17 U/L (14-59); AST 10 U/L (15-37); Albumin 3.5 g/dL (3.4-5.0); Alkaline Phosphatase 136 U/L (46-116); Anion Gap 12.9 mmol/L (3-11); BUN 8 mg/dL (7-18); Bilirubin, Total 0.7 mg/dL (0.2-1.0); CO2 24.1 mmol/L (21.0-32.0); CREATININE 1.3 mg/dL (0.55-1.02); Calcium 9.4 mg/dL (8.5-10.1); Chloride 97 mmol/L (98-107); Estimated GFR 59.26 (mL/min/1.73m2); Glucose 334 mg/dL (74-106); Magnesium 1.4 mg/dL (1.8-2.4); Potassium 3.3 mmol/L (3.5-5.1); Sodium 134 mmol/L (136-145); Total Protein 8.2 g/dL (6.4-8.2)
[2023-01-13] MEDS: Acetaminophen 500 MG TAB 1000 MG PO (16:54)
[2023-01-13] MEDS: Normal Saline 1,000 ML 1000 ML IV ×3 (16:54→18:43)
[2023-01-13 16:57] LABS: Epithelial Cells Few HPF (Negative)
[2023-01-13 16:58] LABS: Bacteria Moderate HPF (Negative); C & S Indicated? Yes; Casts Negative LPF (Negative); Crystals Negative HPF (Negative); Mucus Trace (Negative)
[2023-01-13] MEDS: cefTRIAXone 2 GM/50 ML BAG IVPB (17:14)
[2023-01-13] MEDS: Ketorolac 15 MG/ML VIAL IVP (17:14)
[2023-01-13 17:16] LABS: *AMPHETAMINES SCREEN URINE Negative (Negative); *BARBITURATES SCREEN URINE Negative (Negative); *BENZODIAZEPINES SCREEN URINE Negative (Negative); Cannabinoids THC Positive (Negative); Cocaine Screen,Urine Negative (Negative); METHADONE URINE SCREEN Negative (Negative); OPIATES URINE SCREEN Negative (Negative)
[2023-01-13 17:21] LABS: Tricyclic Antidepressants Negative (Negative)
[2023-01-13 19:24] LABS: Lactate 1.7 mmol/L (0.6-1.4)
--- NOTE | 2023-01-13 19:28 | W.ED.GENAD ---
Discharge Plan Disposition Patient Disposition: Home Condition: Improving Discharge Details Clinical Impression: Urinary tract infection Primary Care Provider: Hetal Leon ED Provider: Elina Brady Home Meds and New Rx's Prescriptions: New levofloxacin 750 mg tablet 750 mg PO DAILY Qty: 6 0RF Continued venlafaxine 150 mg capsule,extended release 24hr 150 mg PO DAILY Qty: 45 0RF insulin lispro [Humalog KwikPen Insulin] 100 unit/mL insulin pen 1 - 30 unit SC .AC (4-5 times daily) MDD 150 units Qty: 45 1RF Rx Instructions: 1 unit: 10 grams of carbs. Corrective scale 1:40>150 (DME) Dexcom G6 Sensor Device See Rx Instructions .Route Qty: 3 0RF Rx Instructions: As directed (DME) Dexcom G6 Transmitter Device See Rx Instructions .Route Qty: 1 0RF Rx Instructions: for blood sugar checks ac/hs and prn DX: E10.9 insulin glargine [Lantus Solostar U-100 Insulin] 100 unit/mL (3 mL) insulin pen 22 unit subcut BID Qty: 14 3RF (DME) FreeStyle Precision Elijah Strips Strip See Rx Instructions .ROUTE .MEDSUPPLY Qty: 50 11RF Rx Instructions: As directed (DME) pen needle, diabetic [BD Ultra-Fine Gissel Pen Needle] 32 gauge x 5/32 needle 1 device miscellaneous DIRECTED Qty: 100 0RF (DME) pen needle, diabetic [BD Ultra-Fine Gissel Pen Needle] 32 gauge x 5/32 needle See Rx Instructions .ROUTE .COMPLEX Qty: 100 0RF Rx Instructions: 1 device as directed ;use as directed (DME) lancets [Lancets,Ultra Thin] Misc See Rx Instructions .Route Qty: 100 0RF Rx Instructions: For back up fingerstick checks AC/HS Discharge Instructions Instructions: Urinary Tract Infection in Women (ED) Additional Instructions: Drink at least 6 to 8 glasses of water or more daily to stay well-hydrated Can use ibuprofen 600 mg with food 4 times daily for fever pain if needed add acetaminophen 650 mg 4 times daily in between alternating the 2 Return to the emergency department for new or worsening symptoms or if on able to tolerate oral fluids or medicines Referrals: Hetal Leon, CRYPTOGRAPHIC TECHNICIAN [Primary Care Provider] - Medical Decision Making Patient presents with complaints of back pain found to have temperature of 39.4 and heart rate in the 120s. States her symptoms have been ongoing and worsening for the past 2 days. Denies IV drug abuse so epidural abscess less likely. Will check UA and routine septic work-up. Differential includes pyelonephritis, infected renal stone. CT of the abdomen and pelvis without contrast shows no acute intra-abdominal findings. She has no CVA tenderness. Review of labs with no evidence of DKA. She is given 3 L of normal saline with improvement in her heart rate. Her blood pressure remained stable. Her lactic acid has improved from 5-1.7. She is tolerating p.o. well. She was given 2 g of IV ceftriaxone and will be discharged on Levaquin 500 mg orally while awaiting cultures. Did discuss outpatient versus inpatient management and patient would like to trial outpatient. She was advised to return if unable to take oral fluids and medications. She is discharged to home with no new services Medical Records Medical records reviewed: Yes I reviewed the patient's medical records. HPI General Mode of arrival: ambulatory. Date/Time Provider Initiated Documentation: 01/13/23 15:46. Limitations to Documentation: no limitations. Information obtained by: patient. HPI Narrative: Back pain Related Data Home Medications Medication Instructions Recorded Confirmed pen needle, diabetic 32 gauge x #100 ea 05/20/20 07/15/22 532 (BD Ultra-Fine Gissel Pen Needle) pen needle, diabetic 32 gauge x #100 ea 05/20/20 07/15/22 5/32 (BD Ultra-Fine Gissel Pen Needle) blood sugar diagnostic (FreeStyle #50 ea 08/08/21 07/15/22 Precision Elijah Strips) lancets (Lancets,Ultra Thin) #100 ea 12/21/21 07/15/22 venlafaxine 150 mg 150 mg PO DAILY #45 caps 07/15/22 07/15/22 capsule,extended release 24 hr blood-glucose sensor (Dexcom G6 #3 ea 08/22/22 Sensor device) blood-glucose transmitter (Dexcom #1 ea 08/22/22 G6 Transmitter device) insulin lispro 100 unit/mL 1 - 30 unit (0.01 - 0.3 mL) subcut 08/22/22 subcutaneous pen (Humalog KwikPen .AC (4-5 times daily) #45 SYRGS (U-100) Insulin) insulin glargine 100 unit/mL (3 22 unit (0.22 mL) subcut BID Dx: 10/18/22 mL) subcutaneous pen (Lantus E10.9 to maintain HbA1c less than Solostar U-100 Insulin) 7% #14 SYRGS levofloxacin 750 mg tablet 750 mg PO DAILY #6 tabs 01/13/23 Previous Rx's Medication Instructions Recorded pen needle, diabetic 32 gauge x #100 ea 05/20/20 (BD Ultra-Fine Gissel Pen Needle) pen needle, diabetic 32 gauge x #100 ea 05/20/20 (BD Ultra-Fine Gissel Pen Needle) blood sugar diagnostic (FreeStyle #50 ea 08/08/21 Precision Elijah Strips) lancets (Lancets,Ultra Thin) #100 ea 12/21/21 venlafaxine 150 mg 150 mg PO DAILY #45 caps 07/15/22 capsule,extended release 24 hr blood-glucose sensor (Dexcom G6 #3 ea 08/22/22 Sensor device) blood-glucose transmitter (Dexcom #1 ea 08/22/22 G6 Transmitter device) insulin lispro 100 unit/mL 1 - 30 unit (0.01 - 0.3 mL) subcut 08/22/22 subcutaneous pen (Humalog KwikPen .AC (4-5 times daily) #45 SYRGS (U-100) Insulin) insulin glargine 100 unit/mL (3 22 unit (0.22 mL) subcut BID Dx: 10/18/22 mL) subcutaneous pen (Lantus E10.9 to maintain HbA1c less than Solostar U-100 Insulin) 7% #14 SYRGS levofloxacin 750 mg tablet 750 mg PO DAILY #6 tabs 01/13/23 Allergies Allergy/AdvReac Type Severity Reaction Status Date / Time paroxetine AdvReac Other (See Verified 07/15/22 14:05 Comment) General Stated Complaint: Fever CHACHA: 3 Review of Systems All systems reviewed & are unremarkable except as noted in HPI and below PFSH All Active Problems (Updated 01/13/23 @ 19:31 by Elina Brady NP) Urinary tract infection (Acute) Hypomagnesemia (Acute) Crohn's disease (Chronic) Last seen by [facility] 12/2018, was on Humira, needs referral to GI to re-establish care; Last colo 05/2017 Type 1 diabetes mellitus (Chronic) [facility] [place] past (PCP took over management 07/2022); h/o hospitalizations for DKA Anxiety and depression (Chronic) Hypophosphatemia (Acute) Noncompliance with medication regimen (Chronic) Medical History COVID-19 DKA (diabetic ketoacidosis) Elevated blood pressure affecting in third trimester, antepartum Hypokalemia Surgical History Colonoscopy - [facility] (03/06/17) Family History Maternal Grandfather Breast cancer Paternal Cousin Diabetes Maternal Grandfather Heart disease Mother Hypertension Father Mental health disorder Sister Mental health disorder Sister Mental health disorder Social History Smoking/Tobacco Use Status: Current every day Tobacco Type: e-cigarettes Smoking risk assessment performed?: Yes Alcohol Intake: never Drug use: Occasionally Substance use type: marijuana Adopted: No Caregiver/Support person: Yes (2 month old malenamavis) Household members: significant other, children and other Details: 05/2022: Lives with boyfriend and 2 y/o dtr Glenn Housing: house Number of Children: 1 Communication Needs: None Education Level: high school 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 [employer] Pets and animals: Yes Pets and animals: dog(s) Sexually active: Yes Do you think of yourself as: straight/heterosexual Current gender identity: female Other: Estranged from father who abandoned the family when she was 14 y/o What is your relationship status?: living with partner Panel score (0-1 are the most socially isolated patients): 1 What type of physical activity do you participate in: walking Seatbelt use: always Helmet use: Yes Drive intox or ride w/intox 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: Yes Working smoke detector in home: Yes Fire extinguisher in home: No Carbon monox detector in home: Yes Firearms in home: No Do you feel safe at home: Yes Do you feel safe in your relationship?: Yes Victim of physical abuse: No Victim of emotional abuse: No Victim of sexual abuse: No Female Reproductive History Menstrual Age of Menarche: 10 Duration of menses: 3-5 days control method: pills History History 1 Para 0 Hx # Term Pregnancies 0 Multiple births 0 Hx # Pregnancies 0 Ectopic pregnancies 0 AB induced 0 Hx Number of Living Children 0 AB spontaneous 0 Exam Const General: cooperative and ill appearing acutely Nutritional Appearance: average body habitus Orientation: alert, awake and oriented x3 HENMT Head: normal to inspection, normocephalic and atraumatic Mouth: oral mucosae normal Neck Neck: normal visual inspection Chest Chest: normal inspection of the chest Resp Effort & Inspection: normal respiratory effort Auscultation: clear to auscultation bilaterally Cardio Rate: tachycardic GI Inspection: normal to inspection Palpation: soft Skin General skin exam: no rashes or lesions noted Neuro General: patient alert, patient awake and patient oriented x3 Cognition: normal cognition Speech: speech normal Motor: muscle tone normal throughout Course Vital Signs Vital signs: Vital Signs Temperature 39.4 C H 01/13/23 15:46 Pulse 120 H 01/13/23 15:46 Respiratory Rate 18 01/13/23 15:46 Blood Pressure 114/70 01/13/23 15:46 Pulse Oximetry 100 01/13/23 15:46 Temperature 39.4 C H 01/13/23 15:46 Temperature Source Skin 01/13/23 15:46 Pulse 120 H 01/13/23 15:46 Respiratory Rate 18 01/13/23 15:46 Respiratory Effort Normal 01/13/23 16:25 Blood Pressure 114/70 01/13/23 15:46 Blood Pressure Position Sitting 01/13/23 15:46 Pulse Oximetry 100 01/13/23 15:46 Oxygen Delivery Method Room Air 01/13/23 15:46 Oxygen Flow Rate 0 01/13/23 15:46 Pain Level 7 01/13/23 15:46 Lab/Test Results Lab/Test Results: 01/13/23 16:58 Blood Blood Culture - Pending 01/13/23 16:39 Urine - Reflex from Ua Urine Culture - Pending 01/13/23 16:21 Blood Blood Culture - Pending Laboratory Tests Range/Units 01/13/23 01/13/23 01/13/23 16:21 16:21 16:21 WBC (4.4-10.8) 10^3/uL 10.33 RBC (3.93-5.22) 10^6/uL 4.47 Hgb (11.2-15.7) g/dL 13.6 Hct (36.0-46.0) % 40.6 MCV (80-95) fL 91 MCH (27.0-33.0) pg 30.4 MCHC (32.0-36.0) % 33.5 RDW (11.7-14.6) % 12.0 Plt Count (130-400) 10^3/uL 305 MPV (8.0-11.0) fL 10.5 Immature Gran % 0.3 Neutrophils % 89.5 Lymphocytes % 4.4 Monocytes % 5.1 Eosinophils % 0.2 Basophils % 0.5 Nucleated RBC % (0.0-0.3) % 0.0 Absolute Neutrophils (1.2-6.7) 10^3/uL 9.25 H Absolute Lymphocytes (1.2-3.4) 10^3/uL 0.45 L Absolute Monocytes (0.1-0.8) 10^3/uL 0.53 Absolute Eosinophils (0.0-0.7) 10^3/uL 0.02 Absolute Basophils (0.0-0.2) 10^3/uL 0.05 VBG Lactate (0.6-1.4) mmol/L Sodium (136-145) mmol/L 134 L Potassium (3.5-5.1) mmol/L 3.3 L Chloride (98-107) mmol/L 97 L Carbon Dioxide (21.0-32.0) mmol/L 24.1 Anion Gap (3-11) mmol/L 12.9 H BUN (7-18) mg/dL 8 Creatinine (0.55-1.02) mg/dL 1.3 H Est GFR (CKD-EPI 2020) (mL/min/1.73m2) 59.26 Glucose (74-106) mg/dL 334 H Calcium (8.5-10.1) mg/dL 9.4 Magnesium (1.8-2.4) mg/dL 1.4 L Total Bilirubin (0.2-1.0) mg/dL 0.7 AST (15-37) U/L 10 L ALT (14-59) U/L 17 Alkaline Phosphatase (46-116) U/L 136 H C-Reactive Protein (0.0-0.3) mg/dL 19.36 H Total Protein (6.4-8.2) g/dL 8.2 Albumin (3.4-5.0) g/dL 3.5 Procalcitonin ng/mL Urine Color (Yellow) Urine Clarity (Clear) Urine pH (5-8) Ur Specific [place] (1.005-1.025) Urine Protein (Negative) mg/dL Urine Ketones (Negative) mg/dL Urine Blood (Negative) Urine Nitrite (Negative) Urine Bilirubin (Negative) Urine Urobilinogen (Up to 0.2) mg/dL Ur Leukocyte Esterase (Negative) Urine RBC (0-2) HPF Urine WBC (0-5) HPF Ur Epithelial Cells (Negative) HPF Urine Crystals (Negative) HPF Urine Bacteria (Negative) HPF Urine Casts (Negative) LPF Urine Mucus (Negative) Ur Culture Indicated? Urine Glucose (Negative) mg/dL Urine Opiates Screen (Negative) Urine Methadone Screen (Negative) Ur Barbiturates Screen (Negative) Ur Tricyclics Screen (Negative) Ur Amphetamines Screen (Negative) U Benzodiazepines Scrn (Negative) Urine Cocaine Screen (Negative) Ur THC Screen (Negative) Range/Units 01/13/23 01/13/23 01/13/23 16:21 16:39 16:39 WBC (4.4-10.8) 10^3/uL RBC (3.93-5.22) 10^6/uL Hgb (11.2-15.7) g/dL Hct (36.0-46.0) % MCV (80-95) fL MCH (27.0-33.0) pg MCHC (32.0-36.0) % RDW (11.7-14.6) % Plt Count (130-400) 10^3/uL MPV (8.0-11.0) fL Immature Gran % Neutrophils % Lymphocytes % Monocytes % Eosinophils % Basophils % Nucleated RBC % (0.0-0.3) % Absolute Neutrophils (1.2-6.7) 10^3/uL Absolute Lymphocytes (1.2-3.4) 10^3/uL Absolute Monocytes (0.1-0.8) 10^3/uL Absolute Eosinophils (0.0-0.7) 10^3/uL Absolute Basophils (0.0-0.2) 10^3/uL VBG Lactate (0.6-1.4) mmol/L 5.9 H* Sodium (136-145) mmol/L Potassium (3.5-5.1) mmol/L Chloride (98-107) mmol/L Carbon Dioxide (21.0-32.0) mmol/L Anion Gap (3-11) mmol/L BUN (7-18) mg/dL Creatinine (0.55-1.02) mg/dL Est GFR (CKD-EPI 2020) (mL/min/1.73m2) Glucose (74-106) mg/dL Calcium (8.5-10.1) mg/dL Magnesium (1.8-2.4) mg/dL Total Bilirubin (0.2-1.0) mg/dL AST (15-37) U/L ALT (14-59) U/L Alkaline Phosphatase (46-116) U/L C-Reactive Protein (0.0-0.3) mg/dL Total Protein (6.4-8.2) g/dL Albumin (3.4-5.0) g/dL Procalcitonin ng/mL 1.0 Urine Color (Yellow) Yellow Urine Clarity (Clear) Cloudy Urine pH (5-8) 7.0 Ur Specific [place] (1.005-1.025) 1.015 Urine Protein (Negative) mg/dL 100 H Urine Ketones (Negative) mg/dL 40 H Urine Blood (Negative) Small H Urine Nitrite (Negative) Negative Urine Bilirubin (Negative) Negative Urine Urobilinogen (Up to 0.2) mg/dL 0.2 Ur Leukocyte Esterase (Negative) Small H Urine RBC (0-2) HPF 5-10 H Urine WBC (0-5) HPF 5-10 Ur Epithelial Cells (Negative) HPF Few Urine Crystals (Negative) HPF Negative Urine Bacteria (Negative) HPF Moderate Urine Casts (Negative) LPF Negative Urine Mucus (Negative) Trace Ur Culture Indicated? Yes Urine Glucose (Negative) mg/dL >=1000 H Urine Opiates Screen (Negative) Negative Urine Methadone Screen (Negative) Negative Ur Barbiturates Screen (Negative) Negative Ur Tricyclics Screen (Negative) Negative Ur Amphetamines Screen (Negative) Negative U Benzodiazepines Scrn (Negative) Negative Urine Cocaine Screen (Negative) Negative Ur THC Screen (Negative) Positive A Range/Units 01/13/23 19:20 WBC (4.4-10.8) 10^3/uL RBC (3.93-5.22) 10^6/uL Hgb (11.2-15.7) g/dL Hct (36.0-46.0) % MCV (80-95) fL MCH (27.0-33.0) pg MCHC (32.0-36.0) % RDW (11.7-14.6) % Plt Count (130-400) 10^3/uL MPV (8.0-11.0) fL Immature Gran % Neutrophils % Lymphocytes % Monocytes % Eosinophils % Basophils % Nucleated RBC % (0.0-0.3) % Absolute Neutrophils (1.2-6.7) 10^3/uL Absolute Lymphocytes (1.2-3.4) 10^3/uL Absolute Monocytes (0.1-0.8) 10^3/uL Absolute Eosinophils (0.0-0.7) 10^3/uL Absolute Basophils (0.0-0.2) 10^3/uL VBG Lactate (0.6-1.4) mmol/L 1.7 H Sodium (136-145) mmol/L Potassium (3.5-5.1) mmol/L Chloride (98-107) mmol/L Carbon Dioxide (21.0-32.0) mmol/L Anion Gap (3-11) mmol/L BUN (7-18) mg/dL Creatinine (0.55-1.02) mg/dL Est GFR (CKD-EPI 2020) (mL/min/1.73m2) Glucose (74-106) mg/dL Calcium (8.5-10.1) mg/dL Magnesium (1.8-2.4) mg/dL Total Bilirubin (0.2-1.0) mg/dL AST (15-37) U/L ALT (14-59) U/L Alkaline Phosphatase (46-116) U/L C-Reactive Protein (0.0-0.3) mg/dL Total Protein (6.4-8.2) g/dL Albumin (3.4-5.0) g/dL Procalcitonin ng/mL Urine Color (Yellow) Urine Clarity (Clear) Urine pH (5-8) Ur Specific [place] (1.005-1.025) Urine Protein (Negative) mg/dL Urine Ketones (Negative) mg/dL Urine Blood (Negative) Urine Nitrite (Negative) Urine Bilirubin (Negative) Urine Urobilinogen (Up to 0.2) mg/dL Ur Leukocyte Esterase (Negative) Urine RBC (0-2) HPF Urine WBC (0-5) HPF Ur Epithelial Cells (Negative) HPF Urine Crystals (Negative) HPF Urine Bacteria (Negative) HPF Urine Casts (Negative) LPF Urine Mucus (Negative) Ur Culture Indicated? Urine Glucose (Negative) mg/dL Urine Opiates Screen (Negative) Urine Methadone Screen (Negative) Ur Barbiturates Screen (Negative) Ur Tricyclics Screen (Negative) Ur Amphetamines Screen (Negative) U Benzodiazepines Scrn (Negative) Urine Cocaine Screen (Negative) Ur THC Screen (Negative) POC- Test(urine) Negative
[2023-01-13] MEDS: levoFLOXacin 500 MG, levoFLOXacin 250 MG 750 MG PO (19:33)
[2023-01-13 19:49] VITALS: BP 106/73; PULSE 100; RESP 16; TEMP 37.8; O2SAT 98
== END 2023-01-13 20:01 | disposition home or self-care (01) ==
PROVIDERS: Emergency Provider Nurse Practitioner Acute Care; PCP Nurse Practitioner Family
DX: N39.0 Urinary tract infection, site not specified (principal)
CPT/HCPCS: 80053; 80307; 81025; 84145; 87040; 87077; 96361; 96365; 96375; 99284; 74176; 81003; 81015; 83605; 83735; 85025; 86140; 87086; 87186; J1885

== ENCOUNTER 2023-03-04 19:25 | Emergency (ER) | payer OTHER, SELFPAY ==
[2023-03-04 19:26] VITALS: BP 125/86; PULSE 125; RESP 18; TEMP 36.8; O2SAT 100
[2023-03-04 20:27] LABS: Abs Immature Grans 0.05 10^3/uL (0.0-0.06); Absolute Basophil Count 0.05 10^3/uL (0.0-0.2); Absolute Eosinophil Count 0.15 10^3/uL (0.0-0.7); Absolute Monocyte Count 0.71 10^3/uL (0.1-0.8); Absolute Neutrophil Count 7.88 10^3/uL (1.2-6.7); Basophils % 0.5; Eosinophils % 1.4; HCT 40.5 % (36.0-46.0); HGB 13.4 g/dL (11.2-15.7); Immature Grans % 0.5; Lymphocytes % 16.9; MCH 29.9 pg (27.0-33.0); MCHC 33.1 % (32.0-36.0); MCV 90 fL (80-95); MPV 10.1 fL (8.0-11.0); Monocytes % 6.7; Platelet Count 432 10^3/uL (130-400); RBC 4.48 10^6/uL (3.93-5.22); RDW 12.4 % (11.7-14.6); RDW-SD 40.6 fL; WBC 10.64 10^3/uL (4.4-10.8)
[2023-03-04 20:30] LABS: ESR 32 mm/hr (0-20)
[2023-03-04 20:43] LABS: Bilirubin Small (Negative); Blood Trace-intact (Negative); Clarity Clear (Clear); Glucose 250 mg/dL (Negative); Ketones 15 mg/dL (Negative); Leukocyte Esterase Negative (Negative); Nitrite Negative (Negative); Specific Gravity >= 1.030 (1.005-1.025); Urobilinogen 0.2 mg/dL (Up to 0.2); pH 6.5 (5-8)
[2023-03-04 20:44] LABS: ALT 14 U/L (14-59); AST 21 U/L (15-37); Albumin 3.6 g/dL (3.4-5.0); Alkaline Phosphatase 116 U/L (46-116); Anion Gap 6.8 mmol/L (3-11); BUN 8 mg/dL (7-18); Bilirubin, Total 0.6 mg/dL (0.2-1.0); CO2 29.2 mmol/L (21.0-32.0); CREATININE 0.7 mg/dL (0.55-1.02); Calcium 9.7 mg/dL (8.5-10.1); Chloride 104 mmol/L (98-107); Estimated GFR 124.55 (mL/min/1.73m2); Glucose 195 mg/dL (74-106); Potassium 4.2 mmol/L (3.5-5.1); Sodium 140 mmol/L (136-145); Total Protein 8.2 g/dL (6.4-8.2)
[2023-03-04 20:46] LABS: Bacteria Few HPF (Negative); C & S Indicated? No; Casts Negative LPF (Negative); Crystals Moderate Amorphous HPF (Negative); Epithelial Cells Few HPF (Negative); Mucus Negative (Negative); WBC 0-2 HPF (0-5)
[2023-03-04] MEDS: ACETAMINOPHEN 1,000 MG/100 ML BTL 400 MG IVPB (20:51)
[2023-03-04] MEDS: Normal Saline 1,000 ML 1000 ML IV ×2 (20:52→21:51)
[2023-03-04] MEDS: Prochlorperazine 10 MG/2 ML VIAL IVP (20:52)
[2023-03-04] MEDS: diphenhydrAMINE 50 MG/ML VIAL 12.5 MG IVP (20:52)
[2023-03-04 20:54] LABS: C-Reactive Protein 7.03 mg/dL (0.0-0.3)
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
[2023-03-04 22:57] VITALS: BP 120/84; PULSE 84; RESP 18; O2SAT 98
== END 2023-03-04 22:57 | disposition home or self-care (01) ==
PROVIDERS: Emergency Provider Nurse Practitioner Family; PCP Nurse Practitioner Family
DX: R51.9 Headache, unspecified (principal); R11.2 Nausea with vomiting, unspecified; E10.65 Type 1 diabetes mellitus with hyperglycemia
CPT/HCPCS: 80053; 81025; 82962; 85652; 96365; 99283; 81003; 81015; 85025; 86140; J0131; J0780; J1200

== ENCOUNTER 2024-06-21 01:22 | Outpatient (CLI) | payer OTHER, SELFPAY ==
[2024-06-21 12:54] LABS: Abs Immature Grans 0.05 10^3/uL (0.0-0.06); Absolute Basophil Count 0.05 10^3/uL (0.0-0.2); Absolute Eosinophil Count 0.22 10^3/uL (0.0-0.7); Absolute Lymphocyte Count 1.23 10^3/uL (1.2-3.4); Absolute Monocyte Count 0.46 10^3/uL (0.1-0.8); Absolute Neutrophil Count 7.39 10^3/uL (1.2-6.7); Basophils % 0.5 %; Eosinophils % 2.3 %; HCT 42.6 % (36.0-46.0); HGB 13.8 g/dL (11.2-15.7); Immature Grans % 0.5 %; Lymphocytes % 13.1 %; MCH 29.7 pg (27.0-33.0); MCHC 32.4 % (32.0-36.0); MCV 92 fL (80-95); MPV 11.3 fL (8.0-11.0); Monocytes % 4.9 %; Neutrophils % 78.7 %; Platelet Count 384 10^3/uL (130-400); RBC 4.64 10^6/uL (3.93-5.22); RDW 12.9 % (11.7-14.6); RDW-SD 42.8 fL
[2024-06-21 13:13] LABS: Hemoglobin A1C 9.5 % (<5.7)
[2024-06-21 13:42] LABS: ALT 16 U/L (14-59); AST 13 U/L (15-37); Albumin 3.8 g/dL (3.4-5.0); Alkaline Phosphatase 85 U/L (46-116); Anion Gap 8.4 mmol/L (3-11); BUN 19 mg/dL (7-18); Bilirubin, Total 0.33 mg/dL (0.2-1.0); CO2 26.6 mmol/L (21.0-32.0); CREATININE 0.8 mg/dL (0.55-1.02); Calcium 9.4 mg/dL (8.5-10.1); Chloride 105 mmol/L (98-107); Estimated GFR 105.45 (mL/min/1.73m2); Glucose 210 mg/dL (74-106); Potassium 4.3 mmol/L (3.5-5.1); Sodium 140 mmol/L (136-145); TSH 0.41 uIU/mL (0.36-3.74); Total Protein 7.7 g/dL (6.4-8.2); Vitamin D 25 Total 10.3 ng/mL (30-100)
[2024-06-21 13:58] LABS: FREE T4 0.94 ng/dL (0.76-1.46)
[2024-06-21 14:10] LABS: Calculated LDL 82 mg/dL (<100); Cholesterol 149 mg/dL (<200); HDL Cholesterol 57 mg/dL (40-60); Triglyceride 52 mg/dL (<150)
== END 2024-06-21 01:23 | disposition home or self-care (01) ==
LOC: LOS 01:23
PROVIDERS: Registered Nurse; PCP Nurse Practitioner Family; Visit Provider Nurse Practitioner
DX: R63.5 Abnormal weight gain (principal); E10.9 Type 1 diabetes mellitus without complications; F33.1 Major depressive disorder, recurrent, moderate; F41.1 Generalized anxiety disorder; F90.9 Attention-deficit hyperactivity disorder, unspecified type
CPT/HCPCS: 36415; 80053; 80061; 82306; 83036; 84439; 84443; 85025

== ENCOUNTER 2024-11-02 08:15 | Inpatient (IN) | payer OTHER, SELFPAY ==
[2024-11-02] VITALS (67 sets, daily range): BP systolic 111–142; BP diastolic 54–112; PULSE 61–102; RESP 7–27; TEMP 36.3–37.5; O2SAT 97–100
--- NOTE | 2024-11-02 08:15 | RT.EKG_ITS ---
APPROVED REPORT Exam: Resting ECG Reason for Exam: weakness Patient Location: E HR:90 bpm ECG Measurements Heart Rate 90 AXIS NM 129 P 80 QRSd 92 QRS 72 QT 370 T 71 QTc 453 Conclusion Sinus rhythm...normal P axis, V-rate 60- 99 Right atrial enlargement...P>0.25mV 2 lds or<-0.24mV aVR/aVL I have reviewed and interpreted ECG and agree with software generated interpretation.
[2024-11-02 08:31] LABS: BE (Venous) -18 mmol/L (-2-3); HCO3 (Venous) 9 mmol/L (23-28); O2 Sat (Venous) 52 %; TCO2 (Venous) 9 mmol/L (24-29); pCO2 (Venous) 23 mmHg (41-51); pH (Venous) 7.22 (7.31-7.41); pO2 (Venous) 28 mmHg
[2024-11-02 08:32] LABS: Abs Immature Grans 0.27 10^3/uL (0.0-0.06); Absolute Basophil Count 0.05 10^3/uL (0.0-0.2); Absolute Eosinophil Count 0.02 10^3/uL (0.0-0.7); Absolute Lymphocyte Count 0.31 10^3/uL (1.2-3.4); Absolute Monocyte Count 0.48 10^3/uL (0.1-0.8); Absolute Neutrophil Count 22.99 10^3/uL (1.2-6.7); Basophils % 0.2 %; Eosinophils % 0.1 %; HGB 15.7 g/dL (11.2-15.7); Immature Grans % 1.1 %; Lymphocytes % 1.3 %; MCH 30.2 pg (27.0-33.0); MCHC 33.4 % (32.0-36.0); MCV 90 fL (80-95); MPV 10.5 fL (8.0-11.0); Platelet Count 510 10^3/uL (130-400); RDW 12.9 % (11.7-14.6); RDW-SD 42.2 fL; WBC 24.12 10^3/uL (4.4-10.8)
[2024-11-02 08:52] LABS: Neutrophils % 95.3 %
[2024-11-02 08:56] LABS: ALT 25 U/L (14-59); AST 14 U/L (15-37); Albumin 4.8 g/dL (3.4-5.0); Alkaline Phosphatase 107 U/L (46-116); Anion Gap 25.2 mmol/L (3-11); BUN 14 mg/dL (7-18); Bilirubin, Total 0.7 mg/dL (0.2-1.0); CO2 11.8 mmol/L (21.0-32.0); CREATININE 1.2 mg/dL (0.55-1.02); Calcium 10.2 mg/dL (8.5-10.1); Chloride 103 mmol/L (98-107); Estimated GFR 64.42 (mL/min/1.73m2); Glucose 212 mg/dL (74-106); Magnesium 1.9 mg/dL (1.8-2.4); PHOSPHORUS 2.9 mg/dL (2.6-4.7); Sodium 140 mmol/L (136-145); Total Protein 9.5 g/dL (6.4-8.2)
[2024-11-02 09:11] LABS: Bilirubin Small (Negative); Blood Moderate (Negative); Clarity Clear (Clear); Glucose 500 mg/dL (Negative); Ketones >=160 mg/dL (Negative); Leukocyte Esterase Negative (Negative); Nitrite Negative (Negative); Specific Gravity >= 1.030 (1.005-1.025); Urobilinogen 0.2 mg/dL (Up to 0.2); pH 5.5 (5-8)
[2024-11-02 09:23] LABS: Bacteria Few HPF (Negative); Crystals Negative HPF (Negative); Epithelial Cells Few HPF (Negative); Mucus Trace (Negative); Other Cells Negative (Negative); WBC Negative HPF (0-5)
[2024-11-02 09:24] LABS: C & S Indicated? No; Casts 20-50 Hyaline LPF (Negative)
[2024-11-02] MEDS: Metoclopramide 10 MG/2 ML VIAL IVP ×2 (09:31→13:44)
[2024-11-02] MEDS: Normal Saline 1,000 ML 1000 ML IV ×2 (09:31→09:32)
[2024-11-02 09:33] LABS: COVID-19 PCR Negative (Negative); Influenza A PCR Negative (Negative); Influenza B PCR Negative (Negative); RSV PCR Negative (Negative)
[2024-11-02 09:34] LABS: Source Nasopharynx
[2024-11-02] MEDS: Dextrose 25%-Water 10 ML SYR IVP ×2 (09:38→12:01)
[2024-11-02 09:59] LABS: Procalcitonin 0.17 ng/mL
[2024-11-02 10:11] LABS: HCG Quant, Pregnancy 5854 mIU/mL (1-3)
[2024-11-02 10:16] LABS: Anion Gap 21.9 mmol/L (3-11); BUN 14 mg/dL (7-18); CO2 12.1 mmol/L (21.0-32.0); Calcium 8.9 mg/dL (8.5-10.1); Chloride 108 mmol/L (98-107); Estimated GFR 80.18 (mL/min/1.73m2); Glucose 161 mg/dL (74-106); Potassium 4.9 mmol/L (3.5-5.1); Sodium 142 mmol/L (136-145)
--- NOTE | 2024-11-02 10:29 | W.ED.GENAD ---
Discharge Plan Disposition Patient Disposition: Admit to [facility] Condition: Critical Discharge Details Clinical Impression: DKA (diabetic ketoacidosis), Type 1 diabetes mellitus, 5 weeks gestation of Primary Care Provider: Hetal Leon ED Provider: Silvia Egan Home Meds and New Rx's Prescriptions: No Action (DME) lancets Misc See Rx Instructions .ROUTE .MEDSUPPLY Qty: 400 3RF Rx Instructions: As directed to check blood glucose four times daily. On insulin. Dispense covered brand. (DME) pen needle, diabetic [Pen Needle] 32 gauge x 5/32 needle See Rx Instructions .ROUTE .MEDSUPPLY Qty: 400 3RF Rx Instructions: As directed to administer insulin 4 times daily. insulin glargine [Basaglar KwikPen U-100 Insulin] 100 unit/mL (3 mL) insulin pen 22 unit subcut BID Qty: 30 5RF lamotrigine 25 mg tablet 25 mg PO .COMPLEX Qty: 42 0RF Rx Instructions: * Take 2 tabs, qAM x 2 weeks, then Take 1 tab, qAM x 2 weeks, then STOP * lurasidone [Latuda] 20 mg tablet 20 mg PO QPM Qty: 30 2RF Rx Instructions: must administer with food (at least 350 calories) (DME) Dexcom G6 Transmitter Device See Rx Instructions .Route Qty: 1 3RF Rx Instructions: for blood sugar checks ac/hs and prn DX: E10.9 (DME) Dexcom G6 Sensor Device See Rx Instructions .ROUTE .COMPLEX Qty: 3 6RF Dose Instruction: USE TO CHECK BLOOD SUGAR BEFORE A MEAL AND AT BEDTIME NEEDED DIRECTED Rx Instructions: USE TO CHECK BLOOD SUGAR BEFORE A MEAL AND AT BEDTIME NEEDED DIRECTED insulin aspart U-100 [Novolog FlexPen U-100 Insulin] 100 unit/mL (3 mL) insulin pen See Rx Instructions subcut QAC Qty: 45 6RF Rx Instructions: subcutaneously before meals; 1-30u QAC. Carb counting (DME) pen needle, diabetic [BD Ultra-Fine Gissel Pen Needle] 32 gauge x 5/32 needle See Rx Instructions .ROUTE .COMPLEX Qty: 100 0RF Rx Instructions: 1 device as directed ;use as directed HPI General Date/Time Provider Initiated Documentation: 11/02/24 08:46. HPI Narrative: This 24-year-old female with history of insulin-dependent diabetes, gastroparesis bipolar affective disorder presents with report of nausea and vomiting with weakness. Symptoms started 2 to 3 days prior to arrival. States that her sister had flu A so she was concerned that she might also have influenza. Denies any chest pain or shortness of breath aside from when she is vomiting. Unsure of denies any blood in vomitus denies any diarrhea.. Related Data Home Medications ?Medication ?Instructions ?Recorded ?Confirmed pen needle, diabetic 32 gauge x #100 ea 05/20/20 03/07/24 (BD Ultra-Fine Gissel Pen Needle) lancets #400 ea 03/09/23 03/07/24 pen needle, diabetic 32 gauge x #400 ea 08/02/23 03/07/24 (Pen Needle) insulin glargine 100 unit/mL (3 22 unit (0.22 mL) subcut BID #30 11/07/23 11/02/24 mL) subcutaneous pen (Basaglar SYRGS KwikPen U-100 Insulin) lamotrigine 25 mg tablet 25 mg PO .COMPLEX #42 tabs 03/07/24 11/02/24 lurasidone 20 mg tablet (Latuda) 20 mg PO QPM #30 tabs 03/07/24 11/02/24 blood-glucose sensor (Dexcom G6 #3 ea 08/26/24 Sensor device) blood-glucose transmitter (Dexcom #1 ea 08/26/24 G6 Transmitter device) insulin aspart U-100 100 unit/mL See Rx Instructions subcut QAC #45 08/26/24 11/02/24 (3 mL) subcutaneous pen (Novolog mL FlexPen U-100 Insulin aspart) Previous Rx's ?Medication ?Instructions ?Recorded pen needle, diabetic 32 gauge x #100 ea 05/20/20 (BD Ultra-Fine Gissel Pen Needle) lancets #400 ea 03/09/23 pen needle, diabetic 32 gauge x #400 ea 08/02/23 (Pen Needle) insulin glargine 100 unit/mL (3 22 unit (0.22 mL) subcut BID #30 11/07/23 mL) subcutaneous pen (Basaglar SYRGS KwikPen U-100 Insulin) lamotrigine 25 mg tablet 25 mg PO .COMPLEX #42 tabs 03/07/24 lurasidone 20 mg tablet (Latuda) 20 mg PO QPM #30 tabs 03/07/24 blood-glucose sensor (Dexcom G6 #3 ea 08/26/24 Sensor device) blood-glucose transmitter (Dexcom #1 ea 08/26/24 G6 Transmitter device) insulin aspart U-100 100 unit/mL See Rx Instructions subcut QAC #45 08/26/24 (3 mL) subcutaneous pen (Novolog mL FlexPen U-100 Insulin aspart) Allergies Allergy/AdvReac Type Severity Reaction Status Date / Time paroxetine AdvReac Other (See Verified 03/13/24 17:23 Comment) General Stated Complaint: Nausea/Vomit/Diar CHACHA: 3 Exam Narrative Exam Narrative: This 24-year-old female is alert and oriented pupils equal reactive to light and accommodation, moist mucous membranes no abdominal tenderness alert and oriented x 4 no peripheral edema rashes or lesions Course Vital Signs Vital signs: Vital Signs Temperature 36.3 C L 11/02/24 08:17 Pulse 91 H 11/02/24 08:17 Respiratory Rate 18 11/02/24 08:17 Blood Pressure 130/67 11/02/24 08:17 Pulse Oximetry 99 11/02/24 08:17 Temperature 36.3 C L 11/02/24 08:17 Temperature Source Tympanic 11/02/24 08:17 Pulse 91 H 11/02/24 08:17 Respiratory Rate 18 11/02/24 08:17 Blood Pressure 130/67 11/02/24 08:17 Pulse Oximetry 99 11/02/24 08:17 Oxygen Delivery Method Room Air 11/02/24 08:17 Oxygen Flow Rate 0 11/02/24 08:17 Lab/Test Results Lab/Test Results: 11/02/24 08:55 Blood Blood Culture - Pending 11/02/24 08:55 Blood Blood Culture - Pending Laboratory Tests Range/Units 11/02/24 11/02/24 11/02/24 08:16 08:25 08:50 WBC (4.4-10.8) 10^3/uL 24.12 H RBC (3.93-5.22) 10^6/uL 5.20 Hgb (11.2-15.7) g/dL 15.7 Hct (36.0-46.0) % 47.0 H MCV (80-95) fL 90 MCH (27.0-33.0) pg 30.2 MCHC (32.0-36.0) % 33.4 RDW (11.7-14.6) % 12.9 Plt Count (130-400) 10^3/uL 510 H MPV (8.0-11.0) fL 10.5 Immature Gran % % 1.1 Neutrophils % % 95.3 Lymphocytes % % 1.3 Monocytes % % 2.0 Eosinophils % % 0.1 Basophils % % 0.2 Nucleated RBC % (0.0-0.3) % 0.0 Absolute Neutrophils (1.2-6.7) 10^3/uL 22.99 H Absolute Lymphocytes (1.2-3.4) 10^3/uL 0.31 L Absolute Monocytes (0.1-0.8) 10^3/uL 0.48 Absolute Eosinophils (0.0-0.7) 10^3/uL 0.02 Absolute Basophils (0.0-0.2) 10^3/uL 0.05 VBG pH (7.31-7.41) 7.22 L VBG pCO2 (41-51) mmHg 23 L VBG pO2 mmHg 28 VBG HCO3 (23-28) mmol/L 9 L VBG Total CO2 (24-29) mmol/L 9 L VBG O2 Saturation % 52 VBG Base Excess (-2-3) mmol/L -18 L VBG Lactate (<or=2.0) mmol/L 2.0 Sodium (136-145) mmol/L 140 Potassium (3.5-5.1) mmol/L 5.0 Chloride (98-107) mmol/L 103 Carbon Dioxide (21.0-32.0) mmol/L 11.8 L Anion Gap (3-11) mmol/L 25.2 H BUN (7-18) mg/dL 14 Creatinine (0.55-1.02) mg/dL 1.2 H Est GFR (CKD-EPI 2020) (mL/min/1.73m2) 64.42 Glucose (74-106) mg/dL 212 H Calcium (8.5-10.1) mg/dL 10.2 H Phosphorus Cancelled 2.9 Magnesium (1.8-2.4) mg/dL 1.9 Total Bilirubin (0.2-1.0) mg/dL 0.7 AST (15-37) U/L 14 L ALT (14-59) U/L 25 Alkaline Phosphatase (46-116) U/L 107 Total Protein (6.4-8.2) g/dL 9.5 H Albumin (3.4-5.0) g/dL 4.8 Procalcitonin ng/mL 0.17 Serum HCG, Qual Beta HCG, Quant (1-3) mIU/mL 5854 H Urine Color (Yellow) Urine Clarity (Clear) Urine pH (5-8) Ur Specific [place] (1.005-1.025) Urine Protein (Neg-Trace) mg/dL Urine Ketones (Negative) mg/dL Urine Blood (Negative) Urine Nitrite (Negative) Urine Bilirubin (Negative) Urine Urobilinogen (Up to 0.2) mg/dL Ur Leukocyte Esterase (Negative) Urine RBC (0-2) HPF Urine WBC (0-5) HPF Ur Epithelial Cells (Negative) HPF Urine Crystals (Negative) HPF Urine Bacteria (Negative) HPF Urine Casts (Negative) LPF Urine Mucus (Negative) Urine Other (Negative) Ur Culture Indicated? Urine Glucose (Negative) mg/dL COVID-19 Source Nasopharynx SARS-CoV-2 (PCR) (Negative) Negative Influenza Type A (PCR) (Negative) Negative Influenza Type B (PCR) (Negative) Negative RSV (PCR) (Negative) Negative Range/Units 11/02/24 11/02/24 11/02/24 08:57 09:10 09:50 WBC (4.4-10.8) 10^3/uL RBC (3.93-5.22) 10^6/uL Hgb (11.2-15.7) g/dL Hct (36.0-46.0) % MCV (80-95) fL MCH (27.0-33.0) pg MCHC (32.0-36.0) % RDW (11.7-14.6) % Plt Count (130-400) 10^3/uL MPV (8.0-11.0) fL Immature Gran % % Neutrophils % % Lymphocytes % % Monocytes % % Eosinophils % % Basophils % % Nucleated RBC % (0.0-0.3) % Absolute Neutrophils (1.2-6.7) 10^3/uL Absolute Lymphocytes (1.2-3.4) 10^3/uL Absolute Monocytes (0.1-0.8) 10^3/uL Absolute Eosinophils (0.0-0.7) 10^3/uL Absolute Basophils (0.0-0.2) 10^3/uL VBG pH (7.31-7.41) VBG pCO2 (41-51) mmHg VBG pO2 mmHg VBG HCO3 (23-28) mmol/L VBG Total CO2 (24-29) mmol/L VBG O2 Saturation % VBG Base Excess (-2-3) mmol/L VBG Lactate (<or=2.0) mmol/L Sodium (136-145) mmol/L 142 Potassium (3.5-5.1) mmol/L 4.9 Chloride (98-107) mmol/L 108 H Carbon Dioxide (21.0-32.0) mmol/L 12.1 L Anion Gap (3-11) mmol/L 21.9 H BUN (7-18) mg/dL 14 Creatinine (0.55-1.02) mg/dL 1.0 Est GFR (CKD-EPI 2020) (mL/min/1.73m2) 80.18 Glucose (74-106) mg/dL 161 H Calcium (8.5-10.1) mg/dL 8.9 Phosphorus Magnesium (1.8-2.4) mg/dL Total Bilirubin (0.2-1.0) mg/dL AST (15-37) U/L ALT (14-59) U/L Alkaline Phosphatase (46-116) U/L Total Protein (6.4-8.2) g/dL Albumin (3.4-5.0) g/dL Procalcitonin ng/mL Serum HCG, Qual Cancelled Beta HCG, Quant (1-3) mIU/mL Urine Color (Yellow) Yellow Urine Clarity (Clear) Clear Urine pH (5-8) 5.5 Ur Specific [place] (1.005-1.025) >= 1.030 H Urine Protein (Neg-Trace) mg/dL >=300 H Urine Ketones (Negative) mg/dL >=160 H Urine Blood (Negative) Moderate H Urine Nitrite (Negative) Negative Urine Bilirubin (Negative) Small H Urine Urobilinogen (Up to 0.2) mg/dL 0.2 Ur Leukocyte Esterase (Negative) Negative Urine RBC (0-2) HPF 5-10 H Urine WBC (0-5) HPF Negative Ur Epithelial Cells (Negative) HPF Few Urine Crystals (Negative) HPF Negative Urine Bacteria (Negative) HPF Few Urine Casts (Negative) LPF 20-50 Hyaline Urine Mucus (Negative) Trace Urine Other (Negative) Negative Ur Culture Indicated? No Urine Glucose (Negative) mg/dL 500 H COVID-19 Source SARS-CoV-2 (PCR) (Negative) Influenza Type A (PCR) (Negative) Influenza Type B (PCR) (Negative) RSV (PCR) (Negative) POC- Test(urine) Positive Medical Decision Making 24-year-old female presenting with tachycardia, leukocytosis, metabolic acidosis likely in the presence of DKA although likely euglycemic DKA. Results: Glucose of 216 initially. Received 2 L of NS and an amp of D25, patient self administered 5 units of insulin at 730 this morning. Initial pH of 7.22 bicarb of 9 and gap of 25. Patient glucose 153 at reassessment given an amp of D25. Potassium of 5. Patient received approximately 3 A of D50 2 A of D25 and 12 units of subcu insulin secondary to euglycemia and concern for risk for hypoglycemia. Gap initially improved to 21.9 and pH of 7.25 however patient remained nauseous, she is not improving her gap is down to 18.9 and she is no longer nauseous. OB was consulted Dr. Radha gutierrez who actually evaluated patient in the emergency department and states patient is 5 weeks per ultrasound. Patient is nonviable at this time and patient wishes to have an elective performed. OB is willing to consult but states no intervention is needed from a standpoint at this time. I spoke with [facility] and they also consulted with [facility] and they are unable secondary to capacity to accept this patient. I did speak with endocrinology, and she feels like management has been appropriate although she recommends deseeding 200 an hour infusion of LR and continuing the 150 cc of D5 with potassium and regular insulin administration. She recommends following DKA protocol and she will speak with our hospitalist Dr. Arredondo to be sure we are capable of managing this patient. She tells me that euglycemic DKA is common in . Patient was unaware she was upon arrival today. Magnesium has been within normal limits tachycardia has improved she is hemodynamically stable I suspect the leukocytosis is secondary to DKA and she did receive an empiric dose of ceftriaxone blood cultures lactate lactate was within normal limits procalcitonin was mildly elevated at 0.17 although lungs are clear to auscultation she is in no respiratory distress at this time so low suspicion clinically for pneumonia urinalysis does not show infection potassium remains at 4.4 she is received 20 mEq of IV potassium over the last 4 hours EKG is reassuring beta-hCG quant is 5854. Quality:[facility] Health Related Social Needs: No Data to Display Critical Care Time Critical Care Time Attestation: 75 minutes of critical care time secondary to euglycemic DKA with anion gap metabolic acidosis in requiring close monitoring of blood glucose, telemetry monitoring, potassium monitoring, IV fluid resuscitation, dextrose infusion, dextrose boluses, repeat diagnostic blood work, ARTIST'S MANAGER consultation, endocrinology and [facility] consultation [facility] All Active Problems (Updated 11/02/24 @ 16:12 by JOSUE Reina) DKA (diabetic ketoacidosis) (Acute) 5 weeks gestation of (Acute) Bipolar affective, mixed, unspec (Acute) Hypomagnesemia (Acute) Crohn's disease (Chronic) [place] [facility] [place] [facility] [place], was on Humira, needs referral to GI to re-establish care; Last colo 05/2017 Type 1 diabetes mellitus (Chronic) [facility] [place] [place]P took over management 07/2022); h/o hospitalizations for DKA Anxiety and depression (Chronic) Hypophosphatemia (Acute) Noncompliance with medication regimen (Chronic) Medical History DKA (diabetic ketoacidosis) Hypokalemia COVID-19 Elevated blood pressure affecting in third trimester, antepartum Surgical History Colonoscopy - MAC (03/06/17) Family History Maternal Grandfather Breast cancer Paternal Cousin Diabetes Maternal Grandfather Heart disease Mother Hypertension Father Mental health disorder Sister Mental health disorder Sister Mental health disorder Social History Smoking/Tobacco Use Status: Current every day Tobacco Type: e-cigarettes Smoking risk assessment performed?: Yes Alcohol Intake: never Drug use: Occasionally Substance use type: marijuana Adopted: No Caregiver/Support person: Yes (2 month old ricardo) Household members: significant other, children and other Details: 05/2022: Lives with boyfriend and 2 y/o dtr Glenn Housing: apartment Number of Children: 1 Communication Needs: None Education Level: high school 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 Pets and animals: Yes Pets and animals: dog(s) Sexually active: Yes Do you think of yourself as: straight/heterosexual Current gender identity: female Other: Estranged from father who abandoned the family when she was 14 y/o What is your relationship status?: living with partner Panel score (0-1 are the most socially isolated patients): 1 What type of physical activity do you participate in: walking Seatbelt use: always Helmet use: Yes Drive intox or ride w/intox putaway driver: Yes Working smoke detector in home: Yes Fire extinguisher in home: No Carbon monox detector in home: Yes Firearms in home: No Do you feel safe at home: Yes Do you feel safe in your relationship?: Yes Victim of physical abuse: No Victim of emotional abuse: No Victim of sexual abuse: No Female Reproductive History Menstrual Age of Menarche: 10 Duration of menses: 3-5 days control method: pills History History 1 Para 0 Hx # Term Pregnancies 0 Multiple births 0 Hx # Pregnancies 0 Ectopic pregnancies 0 AB induced 0 Hx Number of Living Children 0 AB spontaneous 0 Past Pregnancies Del. Date GA/Weeks # Preg Succ Route Wgt Sex Labor Lgth Anesthesia Location Prov Complic Unknown 07/14/23 Delivery Date: Last Updated by: Cecy Squires DO 2019 - 33 wk at [facility]; IOL for preE w/SF in the setting of type 1 DM Delivery Date: 07/14/23 Last Updated by: Cecy Squires DO Jul 2020 - First trimester elective EAB, completed with medication
[2024-11-02] MEDS: cefTRIAXone 2 GM/50 ML BAG IVPB (10:33)
[2024-11-02] MEDS: Dextrose 50%-Water 25 GM/50 ML SYR IVP ×2 (10:42→13:45)
[2024-11-02] MEDS: Normal Saline 500 ML IV (10:48)
[2024-11-02] MEDS: DEXTROSE 5%-LACTATED RINGERS 1,000 ML 150 ML IV (11:23)
[2024-11-02] MEDS: POTASSIUM CHLORIDE 10 MEQ/100 ML BAG 50 MEQ IV_INF ×2 (11:24→15:30)
[2024-11-02] MEDS: Ondansetron 4 MG/2 ML VIAL IVP ×2 (11:50→18:11)
[2024-11-02] MEDS: Lactated Ringers 500 ML IV (12:04)
[2024-11-02 12:28] LABS: BE (Venous) -16 mmol/L (-2-3); HCO3 (Venous) 11 mmol/L (23-28); O2 Sat (Venous) 77 %; TCO2 (Venous) 10 mmol/L (24-29); pCO2 (Venous) 25 mmHg (41-51); pH (Venous) 7.24 (7.31-7.41); pO2 (Venous) 42 mmHg
[2024-11-02 12:54] LABS: Anion Gap 21.9 mmol/L (3-11); BUN 11 mg/dL (7-18); CO2 12.1 mmol/L (21.0-32.0); CREATININE 0.9 mg/dL (0.55-1.02); Calcium 9.3 mg/dL (8.5-10.1); Chloride 108 mmol/L (98-107); Estimated GFR 90.98 (mL/min/1.73m2); Glucose 198 mg/dL (74-106); Potassium 4.4 mmol/L (3.5-5.1); Sodium 142 mmol/L (136-145)
--- NOTE | 2024-11-02 13:44 | OBCE_ITS ---
Date of service: 11/02/24 Time of Service: 13:44 Assessment and Plan Assessment and plan (1) 5 weeks gestation of : Status: Acute Assessment and plan: This is a 24 yo ( x1, pharm EAB x1) at 5 0/7 as dated by [facility] (09/28/2024, certain). This coincides with findings on ultrasound where gestational sac measuring 7.6 mm is appreciated on a limited bedside exam and no yolk sac or pole are appreciated. There is no evidence of free fluid or concerns within the adnexa; though, it is important to note that this exam is limited by a full bladder on transvaginal approach. Follow-up formal imaging is suggested within a week. Patient expresses a strong desire for termination. She is provided with information on surrounding facilities that offer the services as well as information on contraception. She was encouraged to follow- up with the clinic within 1 week and seek immediate medical evaluation if she begins to have heavy bleeding for pain that is refractory to [id number] pain medications. Regarding the management of her DKA, this is considered a nonviable as well as an undesired . At this stage, all necessary interventions and medications necessary to stabilize her condition should be utilized as necessary. I am happy to discuss any concerns that may arise regarding any particular medications over the course of her management. Assuming this patient requires admission, I would suggest admission to the ICU under the chargeback specialist's, and I am happy to be on consult as needed. Feel free to reach me as necessary at [phone]. Thank you for inviting us to participate in the care of of this patient. (2) DKA (diabetic ketoacidosis): (3) Type 1 diabetes mellitus: Status: Chronic History of Present Illness Narrative: 24 yo (h/o SVDx1, pharm EABx1) presents to ED for persistent nausea and vomiting all day; she is accompanied by her fiancee'. She is found to be in DKA which is currently being managed by ED. I was consulted due to incidentally discovered on screening. [facility] (certain). She is sexually active without contraception; she is strongly opposed to and expresses an independent interest in termination of this . Consults Consult date: 11/02/24 Requesting physician: Silvia Egan Review of Systems All systems reviewed & are unremarkable except as noted in HPI and below PFSH All Active Problems (Updated 11/02/24 @ 14:06 by Cecy Squires DO) 5 weeks gestation of (Acute) Bipolar affective, mixed, unspec (Acute) Hypomagnesemia (Acute) Crohn's disease (Chronic) Last seen by [facility] 12/2018, was on Humira, needs referral to GI to re- establish care; Last colo 05/2017 Type 1 diabetes mellitus (Chronic) [facility] in the past (PCP took over management 07/2022); h/o hospitalizations for DKA Anxiety and depression (Chronic) Hypophosphatemia (Acute) Noncompliance with medication regimen (Chronic) Medical History DKA (diabetic ketoacidosis) Hypokalemia COVID-19 Elevated blood pressure affecting in third trimester, antepartum Surgical History Colonoscopy - [facility] (03/06/17) Family History Maternal Grandfather Breast cancer Paternal Cousin Diabetes Maternal Grandfather Heart disease Mother Hypertension Father Mental health disorder Sister Mental health disorder Sister Mental health disorder Social History Smoking/Tobacco Use Status: Current every day Tobacco Type: e-cigarettes Smoking risk assessment performed?: Yes Alcohol Intake: never Drug use: Occasionally Substance use type: marijuana Adopted: No Caregiver/Support person: Yes (2 month old ricardo) Household members: significant other, children and other Details: 05/2022: Lives with boyfriend and 2 y/o dtr Glenn Housing: apartment Number of Children: 1 Communication Needs: None Education Level: high school 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 [employer] Pets and animals: Yes Pets and animals: dog(s) Sexually active: Yes Do you think of yourself as: straight/heterosexual Current gender identity: female Other: Estranged from father who abandoned the family when she was 14 y/o What is your relationship status?: living with partner Panel score (0-1 are the most socially isolated patients): 1 What type of physical activity do you participate in: walking Seatbelt use: always Helmet use: Yes Drive intox or ride w/intox cat driver: Yes Working smoke detector in home: Yes Fire extinguisher in home: No Carbon monox detector in home: Yes Firearms in home: No Do you feel safe at home: Yes Do you feel safe in your relationship?: Yes Victim of physical abuse: No Victim of emotional abuse: No Victim of sexual abuse: No Female Reproductive History Menstrual Age of Menarche: 10 Duration of menses: 3-5 days control method: pills History History 2 1 Para 0 Hx # Term Pregnancies 0 Multiple births 0 Hx # Pregnancies 0 Ectopic pregnancies 0 AB induced 0 Hx Number of Living Children 0 AB spontaneous 0 Past Pregnancies Del. Date GA/Weeks # Preg Succ Route Wgt Sex Labor Lgth Anesth esia Location Prov Complic Unknown 07/14/23 Delivery Date: Last Updated by: Cecy Squires DO 2019 - 33 wk at [facility]; IOL for preE w/SF in the setting of type 1 DM Delivery Date: 07/14/23 Last Updated by: Cecy Squires DO Jul 2020 - First trimester elective EAB, completed with medication Exam Const General: cooperative and ill appearing Nutritional Appearance: well nourished Orientation: alert and awake HENMT Head: normocephalic Resp Effort & Inspection: normal respiratory effort GI Inspection: other (soft, non-tender, non-distended) Skin General skin exam: no rashes or lesions noted Neuro General: patient alert and patient awake Extrem General: normal to inspection Psych Appearance: well kempt Mental Status: mental status grossly normal Affect: normal affect Results Last Vital Signs Temp 97.4 F L 11/02/24 08:17 Pulse 91 H 11/02/24 08:17 Resp 18 11/02/24 08:17 BP 130/67 11/02/24 08:17 Pulse Ox 99 11/02/24 08:17 Labs 11/02/24 08:25 11/02/24 12:20 Labs: Laboratory Results - last 24 hr 11/02/24 11/02/24 11/02/24 08:16 08:25 08:50 WBC 24.12 H RBC 5.20 Hgb 15.7 Hct 47.0 H MCV 90 MCH 30.2 MCHC 33.4 RDW 12.9 Plt Count 510 H MPV 10.5 Immature Gran % 1.1 Neutrophils % 95.3 Lymphocytes % 1.3 Monocytes % 2.0 Eosinophils % 0.1 Basophils % 0.2 Nucleated RBC % 0.0 Absolute Neutrophils 22.99 H Absolute Lymphocytes 0.31 L Absolute Monocytes 0.48 Absolute Eosinophils 0.02 Absolute Basophils 0.05 VBG pH 7.22 L VBG pCO2 23 L VBG pO2 28 VBG HCO3 9 L VBG Total CO2 9 L VBG O2 Saturation 52 VBG Base Excess -18 L VBG Lactate 2.0 Sodium 140 Potassium 5.0 Chloride 103 Carbon Dioxide 11.8 L Anion Gap 25.2 H BUN 14 Creatinine 1.2 H Est GFR (CKD-EPI 2020) 64.42 Glucose 212 H Calcium 10.2 H Phosphorus Cancelled 2.9 Magnesium 1.9 Total Bilirubin 0.7 AST 14 L ALT 25 Alkaline Phosphatase 107 Total Protein 9.5 H Albumin 4.8 Procalcitonin 0.17 Serum HCG, Qual Beta HCG, Quant 5854 H Urine Color Urine Clarity Urine pH Ur Specific Viola Urine Protein Urine Ketones Urine Blood Urine Nitrite Urine Bilirubin Urine Urobilinogen Ur Leukocyte Esterase Urine RBC Urine WBC Ur Epithelial Cells Urine Crystals Urine Bacteria Urine Casts Urine Mucus Urine Other Ur Culture Indicated? Urine Glucose COVID-19 Source Nasopharynx SARS-CoV-2 (PCR) Negative Influenza Type A (PCR) Negative Influenza Type B (PCR) Negative RSV (PCR) Negative 11/02/24 11/02/24 11/02/24 08:57 09:10 09:23 WBC RBC Hgb Hct MCV MCH MCHC RDW Plt Count MPV Immature Gran % Neutrophils % Lymphocytes % Monocytes % Eosinophils % Basophils % Nucleated RBC % Absolute Neutrophils Absolute Lymphocytes Absolute Monocytes Absolute Eosinophils Absolute Basophils VBG pH VBG pCO2 VBG pO2 VBG HCO3 VBG Total CO2 VBG O2 Saturation VBG Base Excess VBG Lactate Sodium Cancelled Potassium Cancelled Chloride Cancelled Carbon Dioxide Cancelled Anion Gap Cancelled BUN Cancelled Creatinine Cancelled Est GFR (CKD-EPI 2020) Cancelled Glucose Cancelled Calcium Cancelled Phosphorus Magnesium Total Bilirubin AST ALT Alkaline Phosphatase Total Protein Albumin Procalcitonin Serum HCG, Qual Cancelled Beta HCG, Quant 5854 Urine Color Yellow Urine Clarity Clear Urine pH 5.5 Ur Specific Viola >= 1.030 H Urine Protein >=300 H Urine Ketones >=160 H Urine Blood Moderate H Urine Nitrite Negative Urine Bilirubin Small H Urine Urobilinogen 0.2 Ur Leukocyte Esterase Negative Urine RBC 5-10 H Urine WBC Negative Ur Epithelial Cells Few Urine Crystals Negative Urine Bacteria Few Urine Casts 20-50 Hyaline Urine Mucus Trace Urine Other Negative Ur Culture Indicated? No Urine Glucose 500 H COVID-19 Source SARS-CoV-2 (PCR) Influenza Type A (PCR) Influenza Type B (PCR) RSV (PCR) 11/02/24 11/02/24 11/02/24 09:50 11:32 12:20 WBC 24.12 RBC 5.20 Hgb 15.7 Hct 47.0 MCV MCH MCHC RDW Plt Count 510 MPV Immature Gran % Neutrophils % Lymphocytes % Monocytes % Eosinophils % Basophils % Nucleated RBC % Absolute Neutrophils Absolute Lymphocytes Absolute Monocytes Absolute Eosinophils Absolute Basophils VBG pH Cancelled 7.24 L VBG pCO2 Cancelled 25 L VBG pO2 Cancelled 42 VBG HCO3 Cancelled 11 L VBG Total CO2 Cancelled 10 L VBG O2 Saturation Cancelled 77 VBG Base Excess Cancelled -16 L VBG Lactate Sodium 142 142 Potassium 4.9 4.4 Chloride 108 H 108 H Carbon Dioxide 12.1 L 12.1 L Anion Gap 21.9 H 21.9 H BUN 14 11 Creatinine 1.0 0.9 Est GFR (CKD-EPI 2020) 80.18 90.98 Glucose 161 H 198 H Calcium 8.9 9.3 Phosphorus Magnesium Total Bilirubin AST ALT Alkaline Phosphatase Total Protein Albumin Procalcitonin Serum HCG, Qual Beta HCG, Quant Urine Color Urine Clarity Urine pH Ur Specific Viola Urine Protein Urine Ketones Urine Blood Urine Nitrite Urine Bilirubin Urine Urobilinogen Ur Leukocyte Esterase Urine RBC Urine WBC Ur Epithelial Cells Urine Crystals Urine Bacteria Urine Casts Urine Mucus Urine Other Ur Culture Indicated? Urine Glucose COVID-19 Source SARS-CoV-2 (PCR) Influenza Type A (PCR) Influenza Type B (PCR) RSV (PCR) POCUS Exam (ED) Limited OB Exam DATE OF EXAM:: 11/02/24 TIME OF EXAM:: 13:00 PROVIDER THAT PERFORMED THE STUDY: Cecy Squires IS THIS A REPEAT EXAM DURING THIS ENCOUNTER: No Type of Exam: Pelvic OB Trans Abdominal REASON FOR EXAM: other (Incidentally discovered in the setting of DKA; triage benefits from more accurate assessment of gestational age) indication: Incidental discovery of ; triaging benefits from more accurate assessment of gestational age Exam Complete and Pelvic OB Trans Vaginal Exam Complete. DIFFERENTAL DIAGNOSES: Intrauterine INCIDENTAL FINDINGS: TAUS finds no acutely concerning evidence of pathology. TVUS finds gestational sac measuring 7.6 mm. No yolk sac or pole. Scan through adnexa bilaterally without overt evidence of pathology. No free fluid appreciated. TVUS limited by full bladder.
[2024-11-02] MEDS: Insulin REGULAR-Human 100 UNITS/ML UNIT SC ×3 (13:45→15:46)
[2024-11-02 14:11] LABS: Anion Gap 18.9 mmol/L (3-11); BUN 10 mg/dL (7-18); CO2 14.1 mmol/L (21.0-32.0); CREATININE 0.8 mg/dL (0.55-1.02); Calcium 8.7 mg/dL (8.5-10.1); Chloride 109 mmol/L (98-107); Glucose 176 mg/dL (74-106); Potassium 4.4 mmol/L (3.5-5.1); Sodium 142 mmol/L (136-145)
[2024-11-02] MEDS: Lactated Ringers 1,000 ML 200 ML IV (14:45)
[2024-11-02 15:08] LABS: Anion Gap 19.1 mmol/L (3-11); BUN 8 mg/dL (7-18); CO2 13.9 mmol/L (21.0-32.0); CREATININE 0.8 mg/dL (0.55-1.02); Calcium 8.6 mg/dL (8.5-10.1); Chloride 108 mmol/L (98-107); Glucose 285 mg/dL (74-106); Sodium 141 mmol/L (136-145)
[2024-11-02 15:46] LABS: *AMPHETAMINES SCREEN URINE Negative (Negative); *BARBITURATES SCREEN URINE Negative (Negative); *BENZODIAZEPINES SCREEN URINE Negative (Negative); Cannabinoids THC Positive (Negative); Cocaine Screen,Urine Negative (Negative); METHADONE URINE SCREEN Negative (Negative); OPIATES URINE SCREEN Negative (Negative); Tricyclic Antidepressants Negative (Negative)
--- NOTE | 2024-11-02 16:08 | HPE_ITS ---
Date of service: 11/02/24 Time of Service: 16:15 Assessment and Plan Assessment and plan (1) Bipolar affective, mixed, unspec: Status: Acute Assessment and plan: c/w medical management including latuda (2) Type 1 diabetes mellitus: Status: Chronic Assessment and plan: PT does have euglycemic dka. Per my discussion with Dr Huerta (sp) [facility] endocrinology the recommendation is to place the pt on an insulin drip with goal bg (150-200). Check BMP q3 hours and once anion gap has closed on two specimen in a row the pt can be started on her home long acting insulin. Once the pt has been on her long acting insulin for 30 minutes, the pt can be taken off the insulin drip and continue with BG qac./hs and appropriate sliding scale coverage. The BMP's will also allow for the correction of electrolyte abnormalities (3) 5 weeks gestation of : Status: Acute Assessment and plan: Please review note attached to the H&P portion of this document. Pt currently has a nonviable and has stated that she plans to terminate this History of Present Illness History of Present Illness Chief Complaint: Nausea and vomiting for 2 days N arrative: This is a 24-year-old female with a known history of diabetes type 1 which requires long-acting short acting insulin who presents to the ED with worsening nausea and vomiting over the last 48 hours. While she was in the ED a test was done which turned out to be positive. In reviewing her labs the patient had multiple metabolic acidosis as well appropriate respiratory compensation. Considering the gravid status of the patient I asked them to reach out to endocrinology doctor. Did have a discussion with Dr. De La Torre who recommended insulin drip to keep her blood glucose is between 150-100. Serial laboratory work is to ensure a closed anion gap and then stopping the insulin drip after the patient had been on Lantusor another long-acting medication for 30 minutes. At the time of the admission the patient denied gap has been closed and has not close completely 24-year-old female presenting with tachycardia, leukocytosis, metabolic acidosis likely in the presence of DKA although likely euglycemic DKA. Results: Glucose of 216 initially. Received 2 L of NS and an amp of D25, patient self administered 5 units of insulin at 730 this morning. Initial pH of 7.22 bicarb of 9 and gap of 25. Patient glucose 153 at reassessment given an amp of D25. Potassium of 5. Patient received approximately 3 A of D50 2 A of D25 and 12 units of subcu insulin secondary to euglycemia and concern for risk for hypoglycemia. Gap initially improved to 21.9 and pH of 7.25 however patient remained nauseous, she is not improving her gap is down to 18.9 and she is no longer nauseous. OB was consulted Dr. Radha gutierrez who actually evaluated patient in the emergency department and states patient is 5 weeks per ultrasound. Patient is nonviable at this time and patient wishes to have an elective performed. OB is willing to consult but states no intervention is needed from a standpoint at this time. I spoke with [facility] and they also consulted with [facility] and they are unable secondary to capacity to accept this patient. I did speak with endocrinology, and she feels like management has been appropriate although she recommends deseeding 200 an hour infusion of LR and continuing the 150 cc of D5 with potassium and regular insulin administration. She recommends following DKA protocol and she will speak with our hospitalist Dr. Arredondo to be sure we are capable of managing this patient. She tells me that euglycemic DKA is common in . Patient was unaware she was upon arrival today. Magnesium has been within normal limits tachycardia has improved she is hemodynamically stable I suspect the leukocytosis is secondary to DKA and she did receive an empiric dose of ceftriaxone blood cultures lactate lactate was within normal limits procalcitonin was mildly elevated at 0.17 although lungs are clear to auscultation she is in no respiratory distress at this time so low suspicion clinically for pneumonia urinalysis does not show infection potassium remains at 4.4 she is received 20 mEq of IV potassium over the last 4 hours EKG is reassuring beta-hCG quant is 5854. Assessment and plan: This is a 24 yo ( x1, pharm EAB x1) at 5 0/7 [facility]09/28/[facility], certain). This coincides with findings on ultrasound where gestational sac measuring 7.6 mm is appreciated on a limited bedside exam and no yolk sac or pole are appreciated. There is no evidence of free fluid or concerns within the adnexa; though, it is important to note that this exam is limited by a full bladder on transvaginal approach. Follow-up formal imaging is suggested within a week. Patient expresses a strong desire for termination. She is provided with information on surrounding facilities that offer the services as well as information on contraception. She was encouraged to follow- up with the clinic within 1 week and seek immediate medical evaluation if she begins to have heavy bleeding for pain that is refractory to [id number] pain medications. Regarding the management of her DKA, this is considered a nonviable as well as an undesired . At this stage, all necessary interventions and medications necessary to stabilize her condition should be utilized as necessary. I am happy to discuss any concerns that may arise regarding any particular medications over the course of her management. Assuming this patient requires admission, I would suggest admission to the ICU under the buyer intern's, and I am happy to be on consult as needed. Feel free to reach me as necessary at [phone]. Thank you for inviting us to participate in the care of of this patient. Review of Systems All systems reviewed & are unremarkable except as noted in HPI and below PFSH All Active Problems (Updated 11/02/24 @ 16:12 by JOSUE Reina) DKA (diabetic ketoacidosis) (Acute) 5 weeks gestation of (Acute) Bipolar affective, mixed, unspec (Acute) Hypomagnesemia (Acute) Crohn's disease (Chronic) Last seen by [facility] 12/2018, was on Humira, needs referral to GI to re- establish care; Last colo 05/2017 Type 1 diabetes mellitus (Chronic) [facility] in the past (PCP took over management 07/2022); h/o hospitalizations for DKA Anxiety and depression (Chronic) Hypophosphatemia (Acute) Noncompliance with medication regimen (Chronic) Medical History DKA (diabetic ketoacidosis) Hypokalemia COVID-19 Elevated blood pressure affecting in third trimester, antepartum Surgical History Colonoscopy - [facility] (03/06/17) Family History Maternal Grandfather Breast cancer Paternal Cousin Diabetes Maternal Grandfather Heart disease Mother Hypertension Father Mental health disorder Sister Mental health disorder Sister Mental health disorder Social History Smoking/Tobacco Use Status: Current every day Tobacco Type: e-cigarettes Smoking risk assessment performed?: Yes Alcohol Intake: never Drug use: Occasionally Substance use type: marijuana Adopted: No Caregiver/Support person: Yes (2 month old ricardo) Household members: significant other, children and other Details: 05/2022: Lives with boyfriend and 2 y/o dtr Glenn Housing: apartment Number of Children: 1 Communication Needs: None Education Level: high school 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 [employer] Pets and animals: Yes Pets and animals: dog(s) Sexually active: Yes Do you think of yourself as: straight/heterosexual Current gender identity: female Other: Estranged from father who abandoned the family when she was 14 y/o What is your relationship status?: living with partner Panel score (0-1 are the most socially isolated patients): 1 What type of physical activity do you participate in: walking Seatbelt use: always Helmet use: Yes Drive 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 ride 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 Date GA/Weeks # Preg Succ Route Wgt Sex Labor Lgth Anesth esia Location Prov Complic Unknown 07/14/23 Delivery Date: Last Updated by: Cecy Squires DO 2019 - 33 wk at [facility]; IOL for preE w/SF in the setting of type 1 DM Delivery Date: 07/14/23 Last Updated by: Cecy Squires DO Jul 2020 - First trimester elective EAB, completed with medication Meds Allergies and Home Medications Allergies Allergy/AdvReac Type Severity Reaction Status Date / Time paroxetine AdvReac Other (See Verified 03/13/24 17:23 Comment) Home Medications ?Medication ?Instructions ?Recorded ?Confirmed ?Type pen needle, diabetic 32 gauge x #100 ea 05/20/20 03/07/24 Rx 5/32 (BD Ultra-Fine Gissel Pen Needle) lancets #400 ea 03/09/23 03/07/24 Rx pen needle, diabetic 32 gauge x #400 ea 08/02/23 03/07/24 Rx 5/32 (Pen Needle) insulin glargine 100 unit/mL (3 22 unit (0.22 mL) subcut BID #30 11/07/23 11/02/24 Rx mL) subcutaneous pen (Basaglar SYRGS KwikPen U-100 Insulin) lamotrigine 25 mg tablet 25 mg PO .COMPLEX #42 tabs 03/07/24 11/02/24 Rx lurasidone 20 mg tablet (Latuda) 20 mg PO QPM #30 tabs 03/07/24 11/02/24 Rx blood-glucose sensor (Dexcom G6 #3 ea 08/26/24 Rx Sensor device) blood-glucose transmitter (Dexcom #1 ea 08/26/24 Rx G6 Transmitter device) insulin aspart U-100 100 unit/mL See Rx Instructions subcut QAC #45 08/26/24 11/02/24 Rx (3 mL) subcutaneous pen (Novolog mL FlexPen U-100 Insulin aspart) Exam Narrative Exam Narrative: Head eyes ears nose and throat: Normocephalic atraumatic mucous membranes moist oropharynx clear Neck: No lymphadenopathy no JVD no thyromegaly Cardiovascular: Regular rate and rhythm no murmur rubs gallops Lungs: Clear to auscultation bilaterally with good air exchange Abdomen: Soft nontender nondistended Extremities: No cyanosis clubbing or edema cranial nerves II through XII are intact as tested reflexes upper lower extremity normal as tested Psych: Patient alert and oriented x 3 responds appropriately to verbal cues and to get my linear history General: 24-year-old female appears her stated age no apparent distress Results Labs 11/02/24 08:25 11/02/24 14:25 Labs: Laboratory Results - last 24 hr 11/02/24 11/02/24 11/02/24 08:07 08:16 08:25 WBC 24.12 H RBC 5.20 Hgb 15.7 Hct 47.0 H MCV 90 MCH 30.2 MCHC 33.4 RDW 12.9 Plt Count 510 H MPV 10.5 Immature Gran % 1.1 Neutrophils % 95.3 Lymphocytes % 1.3 Monocytes % 2.0 Eosinophils % 0.1 Basophils % 0.2 Nucleated RBC % 0.0 Absolute Neutrophils 22.99 H Absolute Lymphocytes 0.31 L Absolute Monocytes 0.48 Absolute Eosinophils 0.02 Absolute Basophils 0.05 VBG pH 7.22 L VBG pCO2 23 L VBG pO2 28 VBG HCO3 9 L VBG Total CO2 9 L VBG O2 Saturation 52 VBG Base Excess -18 L VBG Lactate 2.0 Sodium 140 Potassium 5.0 Chloride 103 Carbon Dioxide 11.8 L Anion Gap 25.2 H BUN 14 Creatinine 1.2 H Est GFR (CKD-EPI 2020) 64.42 Glucose 212 H Calcium 10.2 H Phosphorus Cancelled 2.9 Magnesium 1.9 Total Bilirubin 0.7 AST 14 L ALT 25 Alkaline Phosphatase 107 Total Protein 9.5 H Albumin 4.8 Procalcitonin 0.17 Serum HCG, Qual Beta HCG, Quant 5854 H Urine Color Urine Clarity Urine pH Ur Specific [place] Urine Protein Urine Ketones Urine Blood Urine Nitrite Urine Bilirubin Urine Urobilinogen Ur Leukocyte Esterase Urine RBC Urine WBC Ur Epithelial Cells Urine Crystals Urine Bacteria Urine Casts Urine Mucus Urine Other Ur Culture Indicated? Urine Glucose Urine Opiates Screen Negative Urine Methadone Screen Negative Ur Barbiturates Screen Negative Ur Tricyclics Screen Negative Ur Amphetamines Screen Negative U Benzodiazepines Scrn Negative Urine Cocaine Screen Negative Ur THC Screen Positive A COVID-19 Source SARS-CoV-2 (PCR) Influenza Type A (PCR) Influenza Type B (PCR) RSV (PCR) 11/02/24 11/02/24 11/02/24 08:50 08:57 09:10 WBC RBC Hgb Hct MCV MCH MCHC RDW Plt Count MPV Immature Gran % Neutrophils % Lymphocytes % Monocytes % Eosinophils % Basophils % Nucleated RBC % Absolute Neutrophils Absolute Lymphocytes Absolute Monocytes Absolute Eosinophils Absolute Basophils VBG pH VBG pCO2 VBG pO2 VBG HCO3 VBG Total CO2 VBG O2 Saturation VBG Base Excess VBG Lactate Sodium Potassium Chloride Carbon Dioxide Anion Gap BUN Creatinine Est GFR (CKD-EPI 2020) Glucose Calcium Phosphorus Magnesium Total Bilirubin AST ALT Alkaline Phosphatase Total Protein Albumin Procalcitonin Serum HCG, Qual Cancelled Beta HCG, Quant Urine Color Yellow Urine Clarity Clear Urine pH 5.5 Ur Specific [place] >= 1.030 H Urine Protein >=300 H Urine Ketones >=160 H Urine Blood Moderate H Urine Nitrite Negative Urine Bilirubin Small H Urine Urobilinogen 0.2 Ur Leukocyte Esterase Negative Urine RBC 5-10 H Urine WBC Negative Ur Epithelial Cells Few Urine Crystals Negative Urine Bacteria Few Urine Casts 20-50 Hyaline Urine Mucus Trace Urine Other Negative Ur Culture Indicated? No Urine Glucose 500 H Urine Opiates Screen Urine Methadone Screen Ur Barbiturates Screen Ur Tricyclics Screen Ur Amphetamines Screen U Benzodiazepines Scrn Urine Cocaine Screen Ur THC Screen COVID-19 Source Nasopharynx SARS-CoV-2 (PCR) Negative Influenza Type A (PCR) Negative Influenza Type B (PCR) Negative RSV (PCR) Negative 11/02/24 11/02/24 11/02/24 09:23 09:50 11:32 WBC RBC Hgb Hct MCV MCH MCHC RDW Plt Count MPV Immature Gran % Neutrophils % Lymphocytes % Monocytes % Eosinophils % Basophils % Nucleated RBC % Absolute Neutrophils Absolute Lymphocytes Absolute Monocytes Absolute Eosinophils Absolute Basophils VBG pH Cancelled VBG pCO2 Cancelled VBG pO2 Cancelled VBG HCO3 Cancelled VBG Total CO2 Cancelled VBG O2 Saturation Cancelled VBG Base Excess Cancelled VBG Lactate Sodium Cancelled 142 Potassium Cancelled 4.9 Chloride Cancelled 108 H Carbon Dioxide Cancelled 12.1 L Anion Gap Cancelled 21.9 H BUN Cancelled 14 Creatinine Cancelled 1.0 Est GFR (CKD-EPI 2020) Cancelled 80.18 Glucose Cancelled 161 H Calcium Cancelled 8.9 Phosphorus Magnesium Total Bilirubin AST ALT Alkaline Phosphatase Total Protein Albumin Procalcitonin Serum HCG, Qual Beta HCG, Quant Urine Color Urine Clarity Urine pH Ur Specific [place] Urine Protein Urine Ketones Urine Blood Urine Nitrite Urine Bilirubin Urine Urobilinogen Ur Leukocyte Esterase Urine RBC Urine WBC Ur Epithelial Cells Urine Crystals Urine Bacteria Urine Casts Urine Mucus Urine Other Ur Culture Indicated? Urine Glucose Urine Opiates Screen Urine Methadone Screen Ur Barbiturates Screen Ur Tricyclics Screen Ur Amphetamines Screen U Benzodiazepines Scrn Urine Cocaine Screen Ur THC Screen COVID-19 Source SARS-CoV-2 (PCR) Influenza Type A (PCR) Influenza Type B (PCR) RSV (PCR) 11/02/24 11/02/2411/02/25 12:20 13:30 14:25 WBC RBC Hgb Hct MCV MCH MCHC RDW Plt Count MPV Immature Gran % Neutrophils % Lymphocytes % Monocytes % Eosinophils % Basophils % Nucleated RBC % Absolute Neutrophils Absolute Lymphocytes Absolute Monocytes Absolute Eosinophils Absolute Basophils VBG pH 7.24 L VBG pCO2 25 L VBG pO2 42 VBG HCO3 11 L VBG Total CO2 10 L VBG O2 Saturation 77 VBG Base Excess -16 L VBG Lactate Sodium 142 142 141 Potassium 4.4 4.4 4.0 Chloride 108 H 109 H 108 H Carbon Dioxide 12.1 L 14.1 L 13.9 L Anion Gap 21.9 H 18.9 H 19.1 H BUN 11 10 8 Creatinine 0.9 0.8 0.8 Est GFR (CKD-EPI 2020) 90.98 104.80 104.80 Glucose 198 H 176 H 285 H Calcium 9.3 8.7 8.6 Phosphorus Magnesium Total Bilirubin AST ALT Alkaline Phosphatase Total Protein Albumin Procalcitonin Serum HCG, Qual Beta HCG, Quant Urine Color Urine Clarity Urine pH Ur Specific [place] Urine Protein Urine Ketones Urine Blood Urine Nitrite Urine Bilirubin Urine Urobilinogen Ur Leukocyte Esterase Urine RBC Urine WBC Ur Epithelial Cells Urine Crystals Urine Bacteria Urine Casts Urine Mucus Urine Other Ur Culture Indicated? Urine Glucose Urine Opiates Screen Urine Methadone Screen Ur Barbiturates Screen Ur Tricyclics Screen Ur Amphetamines Screen U Benzodiazepines Scrn Urine Cocaine Screen Ur THC Screen COVID-19 Source SARS-CoV-2 (PCR) Influenza Type A (PCR) Influenza Type B (PCR) RSV (PCR) Last Vital Signs Temp 36.3 C L 11/02/24 08:17 Pulse 91 H 11/02/24 08:17 Resp 18 11/02/24 08:17 BP 130/67 11/02/24 08:17 Pulse Ox 99 11/02/24 08:17 Time Spent Time spent with Patient: 40-54 minutes Time was spent: preparing to see the patient(eg.review tests), obtaining and/or reviewing separately otained hiistory, ordering medications,tests, procedures, referring, communicating with other health disabilities caregiver, indepentently interpreting results, counseling the patient and care coordination
[2024-11-02 16:40] LABS: Salicylate < 2.8 mg/dL (<2.8)
--- NOTE | 2024-11-02 16:47 | W.PC.ACHO ---
Registration Status: Primary Language: Preferred Language: ED Information & Data Chief Complaint Nausea/Vomit/Diar 11/02/24 10:35 Triage Note Vomiting since yesterday 11/02/24 08:17 with weakness unable to keep food/drink down PT says this is how she felt when she ws in DKA in the past Hx DM1 Medical / Surgical History (Last Reviewed 11/13/23 @ 10:12 by Neela Duval NP) DKA (diabetic ketoacidosis) Hypokalemia COVID-19 Elevated blood pressure affecting in third trimester, antepartum (Last Reviewed 11/13/23 @ 10:12 by Neela Duval NP) Colonoscopy - MAC (03/06/17) Most Recent Vital Signs Temperature 36.3 C L 11/02/24 08:17 Temperature Source Tympanic 11/02/24 08:17 Pulse 91 H 11/02/24 08:17 Respiratory Rate 18 11/02/24 08:17 Blood Pressure 130/67 11/02/24 08:17 Pulse Oximetry 99 11/02/24 08:17 Oxygen Delivery Method Room Air 11/02/24 08:17 Oxygen Flow Rate 0 11/02/24 08:17 Allergies paroxetine Adverse Reaction (Verified 03/13/24 17:23) Other (See Comment) Anger Precautions Isolation Standard precaution 11/02/24 08:30 Active Medications Generic Name Dose Route Start Last Admin Trade Name Yuni PRN Reason Stop Dose Admin Dextrose/Lactated Ringer's 1,000 mls @ 150 mls/hr 11/02/24 10:45 11/02/24 11:23 Dextrose 5%-Lr IV 150 mls/hr INFUSION TYLER Administration Ringer's Solution 1,000 mls @ 200 mls/hr 11/02/24 14:45 11/02/24 14:45 IV 200 mls/hr INFUSION TYLER Administration Potassium Chloride 10 meq in 100 mls @ 50 mls/hr 11/02/24 15:03 11/02/24 15:30 IV_INF 11/02/24 17:02 50 mls/hr NOW ONE Administration IV IV Catheter Type [Right Peripheral IV Forearm] IV Catheter Type [Right Saline Lock Antecubital] IV Catheter Type [Left Saline Lock Antecubital] IV Catheter Gauge [Right 20 Forearm] IV Catheter Gauge [Right 18 Antecubital] IV Catheter Gauge [Left 20 Antecubital] Diagnostics 03/22/25 03/22/25 03/22/25 Range/Units 23:23 21:23 20:00 WBC (4.4-10.8) 10^3/uL RBC (3.93-5.22) 10^6/uL Hgb (11.2-15.7) g/dL Hct (36.0-46.0) % MCV (80-95) fL MCH (27.0-33.0) pg MCHC (32.0-36.0) % RDW (11.7-14.6) % Plt Count (130-400) 10^3/uL MPV (8.0-11.0) fL Immature Gran % % Neutrophils % % Lymphocytes % % Monocytes % % Eosinophils % % Basophils % % Nucleated RBC % (0.0-0.3) % Absolute Neutrophils (1.2-6.7) 10^3/uL Absolute Lymphocytes (1.2-3.4) 10^3/uL Absolute Monocytes (0.1-0.8) 10^3/uL Absolute Eosinophils (0.0-0.7) 10^3/uL Absolute Basophils (0.0-0.2) 10^3/uL VBG pH (7.31-7.41) VBG pCO2 (41-51) mmHg VBG pO2 mmHg VBG HCO3 (23-28) mmol/L VBG Total CO2 (24-29) mmol/L VBG O2 Saturation % VBG Base Excess (-2-3) mmol/L VBG Lactate (<or=2.0) mmol/L Sodium Pending Pending Pending (136-145) mmol/L Potassium Pending Pending Pending (3.5-5.1) mmol/L Chloride Pending Pending Pending (98-107) mmol/L Carbon Dioxide Pending Pending Pending (21.0-32.0) mmol/L Anion Gap Pending Pending Pending (3-11) mmol/L BUN Pending Pending Pending (7-18) mg/dL Creatinine Pending Pending Pending (0.55-1.02) mg/dL Est GFR (CKD-EPI 2020) Pending Pending Pending (mL/min/1.73m2) Glucose Pending Pending Pending (74-106) mg/dL Calcium Pending Pending Pending (8.5-10.1) mg/dL Phosphorus Magnesium (1.8-2.4) mg/dL Total Bilirubin Pending (0.2-1.0) mg/dL AST Pending (15-37) U/L ALT Pending (14-59) U/L Alkaline Phosphatase Pending (46-116) U/L Total Protein Pending (6.4-8.2) g/dL Albumin Pending (3.4-5.0) g/dL Procalcitonin ng/mL Serum HCG, Qual Beta HCG, Quant (1-3) mIU/mL Urine Color (Yellow) Urine Clarity (Clear) Urine pH (5-8) Ur Specific [place] (1.005-1.025) Urine Protein (Neg-Trace) mg/dL Urine Ketones (Negative) mg/dL Urine Blood (Negative) Urine Nitrite (Negative) Urine Bilirubin (Negative) Urine Urobilinogen (Up to 0.2) mg/dL Ur Leukocyte Esterase (Negative) Urine RBC (0-2) HPF Urine WBC (0-5) HPF Ur Epithelial Cells (Negative) HPF Urine Crystals (Negative) HPF Urine Bacteria (Negative) HPF Urine Casts (Negative) LPF Urine Mucus (Negative) Urine Other (Negative) Ur Culture Indicated? Urine Glucose (Negative) mg/dL Salicylates (<2.8) mg/dL Urine Opiates Screen (Negative) Urine Methadone Screen (Negative) Ur Barbiturates Screen (Negative) Ur Tricyclics Screen (Negative) Ur Amphetamines Screen (Negative) U Benzodiazepines Scrn (Negative) Urine Cocaine Screen (Negative) Ur THC Screen (Negative) Ethylene Glycol COVID-19 Source SARS-CoV-2 (PCR) (Negative) Influenza Type A (PCR) (Negative) Influenza Type B (PCR) (Negative) RSV (PCR) (Negative) 11/02/24 11/02/24 11/02/24 Range/Units 19:23 17:23 16:00 WBC Pending (4.4-10.8) 10^3/uL RBC Pending (3.93-5.22) 10^6/uL Hgb Pending (11.2-15.7) g/dL Hct Pending (36.0-46.0) % MCV Pending (80-95) fL MCH Pending (27.0-33.0) pg MCHC Pending (32.0-36.0) % RDW Pending (11.7-14.6) % Plt Count Pending (130-400) 10^3/uL MPV Pending (8.0-11.0) fL Immature Gran % Pending % Neutrophils % Pending % Lymphocytes % Pending % Monocytes % Pending % Eosinophils % Pending % Basophils % Pending % Nucleated RBC % (0.0-0.3) % Absolute Neutrophils Pending (1.2-6.7) 10^3/uL Absolute Lymphocytes Pending (1.2-3.4) 10^3/uL Absolute Monocytes Pending (0.1-0.8) 10^3/uL Absolute Eosinophils Pending (0.0-0.7) 10^3/uL Absolute Basophils Pending (0.0-0.2) 10^3/uL VBG pH (7.31-7.41) VBG pCO2 (41-51) mmHg VBG pO2 mmHg VBG HCO3 (23-28) mmol/L VBG Total CO2 (24-29) mmol/L VBG O2 Saturation % VBG Base Excess (-2-3) mmol/L VBG Lactate (<or=2.0) mmol/L Sodium Pending Pending Pending (136-145) mmol/L Potassium Pending Pending Pending (3.5-5.1) mmol/L Chloride Pending Pending Pending (98-107) mmol/L Carbon Dioxide Pending Pending Pending (21.0-32.0) mmol/L Anion Gap Pending Pending Pending (3-11) mmol/L BUN Pending Pending Pending (7-18) mg/dL Creatinine Pending Pending Pending (0.55-1.02) mg/dL Est GFR (CKD-EPI 2020) Pending Pending Pending (mL/min/1.73m2) Glucose Pending Pending Pending (74-106) mg/dL Calcium Pending Pending Pending (8.5-10.1) mg/dL Phosphorus Magnesium (1.8-2.4) mg/dL Total Bilirubin Pending (0.2-1.0) mg/dL AST Pending (15-37) U/L ALT Pending (14-59) U/L Alkaline Phosphatase Pending (46-116) U/L Total Protein Pending (6.4-8.2) g/dL Albumin Pending (3.4-5.0) g/dL Procalcitonin ng/mL Serum HCG, Qual Beta HCG, Quant (1-3) mIU/mL Urine Color (Yellow) Urine Clarity (Clear) Urine pH (5-8) Ur Specific [place] (1.005-1.025) Urine Protein (Neg-Trace) mg/dL Urine Ketones (Negative) mg/dL Urine Blood (Negative) Urine Nitrite (Negative) Urine Bilirubin (Negative) Urine Urobilinogen (Up to 0.2) mg/dL Ur Leukocyte Esterase (Negative) Urine RBC (0-2) HPF Urine WBC (0-5) HPF Ur Epithelial Cells (Negative) HPF Urine Crystals (Negative) HPF Urine Bacteria (Negative) HPF Urine Casts (Negative) LPF Urine Mucus (Negative) Urine Other (Negative) Ur Culture Indicated? Urine Glucose (Negative) mg/dL Salicylates (<2.8) mg/dL Urine Opiates Screen (Negative) Urine Methadone Screen (Negative) Ur Barbiturates Screen (Negative) Ur Tricyclics Screen (Negative) Ur Amphetamines Screen (Negative) U Benzodiazepines Scrn (Negative) Urine Cocaine Screen (Negative) Ur THC Screen (Negative) Ethylene Glycol COVID-19 Source SARS-CoV-2 (PCR) (Negative) Influenza Type A (PCR) (Negative) Influenza Type B (PCR) (Negative) RSV (PCR) (Negative) 11/02/24 11/02/24 11/02/24 Range/Units 15:44 14:25 13:30 WBC (4.4-10.8) 10^3/uL RBC (3.93-5.22) 10^6/uL Hgb (11.2-15.7) g/dL Hct (36.0-46.0) % MCV (80-95) fL MCH (27.0-33.0) pg MCHC (32.0-36.0) % RDW (11.7-14.6) % Plt Count (130-400) 10^3/uL MPV (8.0-11.0) fL Immature Gran % % Neutrophils % % Lymphocytes % % Monocytes % % Eosinophils % % Basophils % % Nucleated RBC % (0.0-0.3) % Absolute Neutrophils (1.2-6.7) 10^3/uL Absolute Lymphocytes (1.2-3.4) 10^3/uL Absolute Monocytes (0.1-0.8) 10^3/uL Absolute Eosinophils (0.0-0.7) 10^3/uL Absolute Basophils (0.0-0.2) 10^3/uL VBG pH (7.31-7.41) VBG pCO2 (41-51) mmHg VBG pO2 mmHg VBG HCO3 (23-28) mmol/L VBG Total CO2 (24-29) mmol/L VBG O2 Saturation % VBG Base Excess (-2-3) mmol/L VBG Lactate (<or=2.0) mmol/L Sodium 141 142 (136-145) mmol/L Potassium 4.0 4.4 (3.5-5.1) mmol/L Chloride 108 H 109 H (98-107) mmol/L Carbon Dioxide 13.9 L 14.1 L (21.0-32.0) mmol/L Anion Gap 19.1 H 18.9 H (3-11) mmol/L BUN 8 10 (7-18) mg/dL Creatinine 0.8 0.8 (0.55-1.02) mg/dL Est GFR (CKD-EPI 2020) 104.80 104.80 (mL/min/1.73m2) Glucose 285 H 176 H (74-106) mg/dL Calcium 8.6 8.7 (8.5-10.1) mg/dL Phosphorus Magnesium (1.8-2.4) mg/dL Total Bilirubin (0.2-1.0) mg/dL AST (15-37) U/L ALT (14-59) U/L Alkaline Phosphatase (46-116) U/L Total Protein (6.4-8.2) g/dL Albumin (3.4-5.0) g/dL Procalcitonin ng/mL Serum HCG, Qual Beta HCG, Quant (1-3) mIU/mL Urine Color (Yellow) Urine Clarity (Clear) Urine pH (5-8) Ur Specific [place] (1.005-1.025) Urine Protein (Neg-Trace) mg/dL Urine Ketones (Negative) mg/dL Urine Blood (Negative) Urine Nitrite (Negative) Urine Bilirubin (Negative) Urine Urobilinogen (Up to 0.2) mg/dL Ur Leukocyte Esterase (Negative) Urine RBC (0-2) HPF Urine WBC (0-5) HPF Ur Epithelial Cells (Negative) HPF Urine Crystals (Negative) HPF Urine Bacteria (Negative) HPF Urine Casts (Negative) LPF Urine Mucus (Negative) Urine Other (Negative) Ur Culture Indicated? Urine Glucose (Negative) mg/dL Salicylates < 2.8 (<2.8) mg/dL Urine Opiates Screen (Negative) Urine Methadone Screen (Negative) Ur Barbiturates Screen (Negative) Ur Tricyclics Screen (Negative) Ur Amphetamines Screen (Negative) U Benzodiazepines Scrn (Negative) Urine Cocaine Screen (Negative) Ur THC Screen (Negative) Ethylene Glycol Cancelled COVID-19 Source SARS-CoV-2 (PCR) (Negative) Influenza Type A (PCR) (Negative) Influenza Type B (PCR) (Negative) RSV (PCR) (Negative) 11/02/24 11/02/24 11/02/24 Range/Units 12:20 11:32 09:50 WBC (4.4-10.8) 10^3/uL RBC (3.93-5.22) 10^6/uL Hgb (11.2-15.7) g/dL Hct (36.0-46.0) % MCV (80-95) fL MCH (27.0-33.0) pg MCHC (32.0-36.0) % RDW (11.7-14.6) % Plt Count (130-400) 10^3/uL MPV (8.0-11.0) fL Immature Gran % % Neutrophils % % Lymphocytes % % Monocytes % % Eosinophils % % Basophils % % Nucleated RBC % (0.0-0.3) % Absolute Neutrophils (1.2-6.7) 10^3/uL Absolute Lymphocytes (1.2-3.4) 10^3/uL Absolute Monocytes (0.1-0.8) 10^3/uL Absolute Eosinophils (0.0-0.7) 10^3/uL Absolute Basophils (0.0-0.2) 10^3/uL VBG pH 7.24 L Cancelled (7.31-7.41) VBG pCO2 25 L Cancelled (41-51) mmHg VBG pO2 42 Cancelled mmHg VBG HCO3 11 L Cancelled (23-28) mmol/L VBG Total CO2 10 L Cancelled (24-29) mmol/L VBG O2 Saturation 77 Cancelled % VBG Base Excess -16 L Cancelled (-2-3) mmol/L VBG Lactate (<or=2.0) mmol/L Sodium 142 142 (136-145) mmol/L Potassium 4.4 4.9 (3.5-5.1) mmol/L Chloride 108 H 108 H (98-107) mmol/L Carbon Dioxide 12.1 L 12.1 L (21.0-32.0) mmol/L Anion Gap 21.9 H 21.9 H (3-11) mmol/L BUN 11 14 (7-18) mg/dL Creatinine 0.9 1.0 (0.55-1.02) mg/dL Est GFR (CKD-EPI 2020) 90.98 80.18 (mL/min/1.73m2) Glucose 198 H 161 H (74-106) mg/dL Calcium 9.3 8.9 (8.5-10.1) mg/dL Phosphorus Magnesium (1.8-2.4) mg/dL Total Bilirubin (0.2-1.0) mg/dL AST (15-37) U/L ALT (14-59) U/L Alkaline Phosphatase (46-116) U/L Total Protein (6.4-8.2) g/dL Albumin (3.4-5.0) g/dL Procalcitonin ng/mL Serum HCG, Qual Beta HCG, Quant (1-3) mIU/mL Urine Color (Yellow) Urine Clarity (Clear) Urine pH (5-8) Ur Specific [place] (1.005-1.025) Urine Protein (Neg-Trace) mg/dL Urine Ketones (Negative) mg/dL Urine Blood (Negative) Urine Nitrite (Negative) Urine Bilirubin (Negative) Urine Urobilinogen (Up to 0.2) mg/dL Ur Leukocyte Esterase (Negative) Urine RBC (0-2) HPF Urine WBC (0-5) HPF Ur Epithelial Cells (Negative) HPF Urine Crystals (Negative) HPF Urine Bacteria (Negative) HPF Urine Casts (Negative) LPF Urine Mucus (Negative) Urine Other (Negative) Ur Culture Indicated? Urine Glucose (Negative) mg/dL Salicylates (<2.8) mg/dL Urine Opiates Screen (Negative) Urine Methadone Screen (Negative) Ur Barbiturates Screen (Negative) Ur Tricyclics Screen (Negative) Ur Amphetamines Screen (Negative) U Benzodiazepines Scrn (Negative) Urine Cocaine Screen (Negative) Ur THC Screen (Negative) Ethylene Glycol COVID-19 Source SARS-CoV-2 (PCR) (Negative) Influenza Type A (PCR) (Negative) Influenza Type B (PCR) (Negative) RSV (PCR) (Negative) 11/02/24 11/02/24 11/02/24 Range/Units 09:23 09:10 08:57 WBC (4.4-10.8) 10^3/uL RBC (3.93-5.22) 10^6/uL Hgb (11.2-15.7) g/dL Hct (36.0-46.0) % MCV (80-95) fL MCH (27.0-33.0) pg MCHC (32.0-36.0) % RDW (11.7-14.6) % Plt Count (130-400) 10^3/uL MPV (8.0-11.0) fL Immature Gran % % Neutrophils % % Lymphocytes % % Monocytes % % Eosinophils % % Basophils % % Nucleated RBC % (0.0-0.3) % Absolute Neutrophils (1.2-6.7) 10^3/uL Absolute Lymphocytes (1.2-3.4) 10^3/uL Absolute Monocytes (0.1-0.8) 10^3/uL Absolute Eosinophils (0.0-0.7) 10^3/uL Absolute Basophils (0.0-0.2) 10^3/uL VBG pH (7.31-7.41) VBG pCO2 (41-51) mmHg VBG pO2 mmHg VBG HCO3 (23-28) mmol/L VBG Total CO2 (24-29) mmol/L VBG O2 Saturation % VBG Base Excess (-2-3) mmol/L VBG Lactate (<or=2.0) mmol/L Sodium Cancelled (136-145) mmol/L Potassium Cancelled (3.5-5.1) mmol/L Chloride Cancelled (98-107) mmol/L Carbon Dioxide Cancelled (21.0-32.0) mmol/L Anion Gap Cancelled (3-11) mmol/L BUN Cancelled (7-18) mg/dL Creatinine Cancelled (0.55-1.02) mg/dL Est GFR (CKD-EPI 2020) Cancelled (mL/min/1.73m2) Glucose Cancelled (74-106) mg/dL Calcium Cancelled (8.5-10.1) mg/dL Phosphorus Magnesium (1.8-2.4) mg/dL Total Bilirubin (0.2-1.0) mg/dL AST (15-37) U/L ALT (14-59) U/L Alkaline Phosphatase (46-116) U/L Total Protein (6.4-8.2) g/dL Albumin (3.4-5.0) g/dL Procalcitonin ng/mL Serum HCG, Qual Cancelled Beta HCG, Quant (1-3) mIU/mL Urine Color Yellow (Yellow) Urine Clarity Clear (Clear) Urine pH 5.5 (5-8) Ur Specific [place] >= 1.030 H (1.005-1.025) Urine Protein >=300 H (Neg-Trace) mg/dL Urine Ketones >=160 H (Negative) mg/dL Urine Blood Moderate H (Negative) Urine Nitrite Negative (Negative) Urine Bilirubin Small H (Negative) Urine Urobilinogen 0.2 (Up to 0.2) mg/dL Ur Leukocyte Esterase Negative (Negative) Urine RBC 5-10 H (0-2) HPF Urine WBC Negative (0-5) HPF Ur Epithelial Cells Few (Negative) HPF Urine Crystals Negative (Negative) HPF Urine Bacteria Few (Negative) HPF Urine Casts 20-50 Hyaline (Negative) LPF Urine Mucus Trace (Negative) Urine Other Negative (Negative) Ur Culture Indicated? No Urine Glucose 500 H (Negative) mg/dL Salicylates (<2.8) mg/dL Urine Opiates Screen (Negative) Urine Methadone Screen (Negative) Ur Barbiturates Screen (Negative) Ur Tricyclics Screen (Negative) Ur Amphetamines Screen (Negative) U Benzodiazepines Scrn (Negative) Urine Cocaine Screen (Negative) Ur THC Screen (Negative) Ethylene Glycol COVID-19 Source SARS-CoV-2 (PCR) (Negative) Influenza Type A (PCR) (Negative) Influenza Type B (PCR) (Negative) RSV (PCR) (Negative) 11/02/24 11/02/24 11/02/24 Range/Units 08:50 08:25 08:16 WBC 24.12 H (4.4-10.8) 10^3/uL RBC 5.20 (3.93-5.22) 10^6/uL Hgb 15.7 (11.2-15.7) g/dL Hct 47.0 H (36.0-46.0) % MCV 90 (80-95) fL MCH 30.2 (27.0-33.0) pg MCHC 33.4 (32.0-36.0) % RDW 12.9 (11.7-14.6) % Plt Count 510 H (130-400) 10^3/uL MPV 10.5 (8.0-11.0) fL Immature Gran % 1.1 % Neutrophils % 95.3 % Lymphocytes % 1.3 % Monocytes % 2.0 % Eosinophils % 0.1 % Basophils % 0.2 % Nucleated RBC % 0.0 (0.0-0.3) % Absolute Neutrophils 22.99 H (1.2-6.7) 10^3/uL Absolute Lymphocytes 0.31 L (1.2-3.4) 10^3/uL Absolute Monocytes 0.48 (0.1-0.8) 10^3/uL Absolute Eosinophils 0.02 (0.0-0.7) 10^3/uL Absolute Basophils 0.05 (0.0-0.2) 10^3/uL VBG pH 7.22 L (7.31-7.41) VBG pCO2 23 L (41-51) mmHg VBG pO2 28 mmHg VBG HCO3 9 L (23-28) mmol/L VBG Total CO2 9 L (24-29) mmol/L VBG O2 Saturation 52 % VBG Base Excess -18 L (-2-3) mmol/L VBG Lactate 2.0 (<or=2.0) mmol/L Sodium 140 (136-145) mmol/L Potassium 5.0 (3.5-5.1) mmol/L Chloride 103 (98-107) mmol/L Carbon Dioxide 11.8 L (21.0-32.0) mmol/L Anion Gap 25.2 H (3-11) mmol/L BUN 14 (7-18) mg/dL Creatinine 1.2 H (0.55-1.02) mg/dL Est GFR (CKD-EPI 2020) 64.42 (mL/min/1.73m2) Glucose 212 H (74-106) mg/dL Calcium 10.2 H (8.5-10.1) mg/dL Phosphorus 2.9 Cancelled Magnesium 1.9 (1.8-2.4) mg/dL Total Bilirubin 0.7 (0.2-1.0) mg/dL AST 14 L (15-37) U/L ALT 25 (14-59) U/L Alkaline Phosphatase 107 (46-116) U/L Total Protein 9.5 H (6.4-8.2) g/dL Albumin 4.8 (3.4-5.0) g/dL Procalcitonin 0.17 ng/mL Serum HCG, Qual Beta HCG, Quant 5854 H (1-3) mIU/mL Urine Color (Yellow) Urine Clarity (Clear) Urine pH (5-8) Ur Specific [place] (1.005-1.025) Urine Protein (Neg-Trace) mg/dL Urine Ketones (Negative) mg/dL Urine Blood (Negative) Urine Nitrite (Negative) Urine Bilirubin (Negative) Urine Urobilinogen (Up to 0.2) mg/dL Ur Leukocyte Esterase (Negative) Urine RBC (0-2) HPF Urine WBC (0-5) HPF Ur Epithelial Cells (Negative) HPF Urine Crystals (Negative) HPF Urine Bacteria (Negative) HPF Urine Casts (Negative) LPF Urine Mucus (Negative) Urine Other (Negative) Ur Culture Indicated? Urine Glucose (Negative) mg/dL Salicylates (<2.8) mg/dL Urine Opiates Screen (Negative) Urine Methadone Screen (Negative) Ur Barbiturates Screen (Negative) Ur Tricyclics Screen (Negative) Ur Amphetamines Screen (Negative) U Benzodiazepines Scrn (Negative) Urine Cocaine Screen (Negative) Ur THC Screen (Negative) Ethylene Glycol COVID-19 Source Nasopharynx SARS-CoV-2 (PCR) Negative (Negative) Influenza Type A (PCR) Negative (Negative) Influenza Type B (PCR) Negative (Negative) RSV (PCR) Negative (Negative) 03/22/25 Range/Units 08:07 WBC (4.4-10.8) 10^3/uL RBC (3.93-5.22) 10^6/uL Hgb (11.2-15.7) g/dL Hct (36.0-46.0) % MCV (80-95) fL MCH (27.0-33.0) pg MCHC (32.0-36.0) % RDW (11.7-14.6) % Plt Count (130-400) 10^3/uL MPV (8.0-11.0) fL Immature Gran % % Neutrophils % % Lymphocytes % % Monocytes % % Eosinophils % % Basophils % % Nucleated RBC % (0.0-0.3) % Absolute Neutrophils (1.2-6.7) 10^3/uL Absolute Lymphocytes (1.2-3.4) 10^3/uL Absolute Monocytes (0.1-0.8) 10^3/uL Absolute Eosinophils (0.0-0.7) 10^3/uL Absolute Basophils (0.0-0.2) 10^3/uL VBG pH (7.31-7.41) VBG pCO2 (41-51) mmHg VBG pO2 mmHg VBG HCO3 (23-28) mmol/L VBG Total CO2 (24-29) mmol/L VBG O2 Saturation % VBG Base Excess (-2-3) mmol/L VBG Lactate (<or=2.0) mmol/L Sodium (136-145) mmol/L Potassium (3.5-5.1) mmol/L Chloride (98-107) mmol/L Carbon Dioxide (21.0-32.0) mmol/L Anion Gap (3-11) mmol/L BUN (7-18) mg/dL Creatinine (0.55-1.02) mg/dL Est GFR (CKD-EPI 2020) (mL/min/1.73m2) Glucose (74-106) mg/dL Calcium (8.5-10.1) mg/dL Phosphorus Magnesium (1.8-2.4) mg/dL Total Bilirubin (0.2-1.0) mg/dL AST (15-37) U/L ALT (14-59) U/L Alkaline Phosphatase (46-116) U/L Total Protein (6.4-8.2) g/dL Albumin (3.4-5.0) g/dL Procalcitonin ng/mL Serum HCG, Qual Beta HCG, Quant (1-3) mIU/mL Urine Color (Yellow) Urine Clarity (Clear) Urine pH (5-8) Ur Specific [place] (1.005-1.025) Urine Protein (Neg-Trace) mg/dL Urine Ketones (Negative) mg/dL Urine Blood (Negative) Urine Nitrite (Negative) Urine Bilirubin (Negative) Urine Urobilinogen (Up to 0.2) mg/dL Ur Leukocyte Esterase (Negative) Urine RBC (0-2) HPF Urine WBC (0-5) HPF Ur Epithelial Cells (Negative) HPF Urine Crystals (Negative) HPF Urine Bacteria (Negative) HPF Urine Casts (Negative) LPF Urine Mucus (Negative) Urine Other (Negative) Ur Culture Indicated? Urine Glucose (Negative) mg/dL Salicylates (<2.8) mg/dL Urine Opiates Screen Negative (Negative) Urine Methadone Screen Negative (Negative) Ur Barbiturates Screen Negative (Negative) Ur Tricyclics Screen Negative (Negative) Ur Amphetamines Screen Negative (Negative) U Benzodiazepines Scrn Negative (Negative) Urine Cocaine Screen Negative (Negative) Ur THC Screen Positive A (Negative) Ethylene Glycol COVID-19 Source SARS-CoV-2 (PCR) (Negative) Influenza Type A (PCR) (Negative) Influenza Type B (PCR) (Negative) RSV (PCR) (Negative) 11/02/24 12:20 Blood Culture - Pending Blood 11/02/24 08:55 Blood Culture - Pending Blood [id number] Documentation Fingerstick Glucose Start: 11/02/24 09:23 Freq: .Q1H Status: Active Protocol: Activity Type Activity Date Activity User E-sign Co-sign Detail Recorded Client Recorded Date Recorded By Document 11/02/24 15:33 BKG DAEMON(3) [id number] 11/02/24 15:40 BKG DAEMON(4) POC Urine Test Start: 11/02/24 08:14 Freq: .Urine Test Status: Active Protocol: Activity Type Activity Date Activity User E-sign Co-sign Detail Recorded Client Recorded Date Recorded By Document 11/02/24 09:03 PAULETTE [id number] 11/02/24 09:03 PAULETTE Intake and Output - 24 Hour Total 11/02/24 08:09 thru 11/02/24 16:25 Intake Total 3170 Output Total 1000 Balance 2170 Weight 78.7 kg Intake: IV 3170 Output: Urine 1000 Other: Emesis Description None Falls Risk Assessment History of Falls No History 11/02/24 08:30 Fall Total Score 0 11/02/24 08:30 Level of Risk Standard/Low Risk 11/02/24 08:30 Problems (Last Reviewed 11/13/23 @ 10:12 by Neela Duval NP) 5 weeks gestation of (Acute) Bipolar affective, mixed, unspec (Acute) Type 1 diabetes mellitus (Chronic) v v v v v v v v v Sending and/or Receiving Nurses: Please use comment section below to note any information pertinent to the patient hand-off not included above. Information / Comments: Report received from: Quyen VANG
[2024-11-02 17:02] LABS: HCT 36.4 % (36.0-46.0); HGB 12.5 g/dL (11.2-15.7); MCH 30.6 pg (27.0-33.0); MCHC 34.3 % (32.0-36.0); MCV 89 fL (80-95); MPV 10.5 fL (8.0-11.0); Platelet Count 386 10^3/uL (130-400); RBC 4.09 10^6/uL (3.93-5.22); RDW 12.9 % (11.7-14.6)
[2024-11-02 17:20] LABS: Anion Gap 16.8 mmol/L (3-11); BUN 8 mg/dL (7-18); CO2 16.2 mmol/L (21.0-32.0); CREATININE 0.8 mg/dL (0.55-1.02); Calcium 9.1 mg/dL (8.5-10.1); Chloride 107 mmol/L (98-107); Glucose 235 mg/dL (74-106); Potassium 3.7 mmol/L (3.5-5.1); Sodium 140 mmol/L (136-145)
[2024-11-02 17:27] LABS: ALT 17 U/L (14-59); AST 14 U/L (15-37); Albumin 3.4 g/dL (3.4-5.0); Alkaline Phosphatase 77 U/L (46-116); Anion Gap 14.9 mmol/L (3-11); BUN 7 mg/dL (7-18); Bilirubin, Total 0.7 mg/dL (0.2-1.0); CO2 17.1 mmol/L (21.0-32.0); CREATININE 0.8 mg/dL (0.55-1.02); Chloride 109 mmol/L (98-107); Glucose 206 mg/dL (74-106); Potassium 3.7 mmol/L (3.5-5.1); Sodium 141 mmol/L (136-145); Total Protein 6.9 g/dL (6.4-8.2)
[2024-11-02 17:35] LABS: Absolute Lymphocyte Count 1.03 10^3/uL (1.2-3.4); Absolute Monocyte Count 0.62 10^3/uL (0.1-0.8); Absolute Neutrophil Count 18.86 10^3/uL (1.2-6.7); Diff Comment Manual Differential; RBC Morphology Normal
[2024-11-02] MEDS: INSULIN REGULAR IN 0.9 % NACL 100 UNIT/100 ML BAG IVINF (18:00)
[2024-11-02] MEDS: POTASSIUM CHLORIDE/D5-0.9%NACL 1,000 ML 150 MEQ IV (18:00)
[2024-11-02] MEDS: Normal Saline Flush 10 ML SYR (18:16)
[2024-11-02 20:28] LABS: Anion Gap 14.5 mmol/L (3-11); BUN 8 mg/dL (7-18); CO2 18.5 mmol/L (21.0-32.0); CREATININE 0.7 mg/dL (0.55-1.02); Chloride 108 mmol/L (98-107); Estimated GFR 123.01 (mL/min/1.73m2); Glucose 110 mg/dL (74-106); Potassium 4.1 mmol/L (3.5-5.1); Sodium 141 mmol/L (136-145)
[2024-11-03] VITALS (61 sets, daily range): BP systolic 107–129; BP diastolic 69–99; PULSE 52–94; RESP 9–26; TEMP 36.9–37.1; O2SAT 96–100
[2024-11-03 00:20] LABS: ALT 18 U/L (14-59); AST 12 U/L (15-37); Albumin 3.1 g/dL (3.4-5.0); Alkaline Phosphatase 70 U/L (46-116); Anion Gap 13.7 mmol/L (3-11); BUN 5 mg/dL (7-18); Bilirubin, Total 0.7 mg/dL (0.2-1.0); CO2 19.3 mmol/L (21.0-32.0); CREATININE 0.6 mg/dL (0.55-1.02); Calcium 8.5 mg/dL (8.5-10.1); Chloride 107 mmol/L (98-107); Estimated GFR 127.67 (mL/min/1.73m2); Glucose 140 mg/dL (74-106); Potassium 3.3 mmol/L (3.5-5.1); Sodium 140 mmol/L (136-145); Total Protein 6.2 g/dL (6.4-8.2)
[2024-11-03 03:44] LABS: Anion Gap 14.7 mmol/L (3-11); BUN 5 mg/dL (7-18); CO2 18.3 mmol/L (21.0-32.0); CREATININE 0.6 mg/dL (0.55-1.02); Calcium 8.5 mg/dL (8.5-10.1); Chloride 109 mmol/L (98-107); Estimated GFR 127.67 (mL/min/1.73m2); Glucose 165 mg/dL (74-106); Potassium 3.5 mmol/L (3.5-5.1); Sodium 142 mmol/L (136-145)
[2024-11-03] MEDS: POTASSIUM CHLORIDE/D5-0.9%NACL 1,000 ML 100 MEQ IV (04:15)
[2024-11-03 06:15] LABS: Anion Gap 13.1 mmol/L (3-11); BUN 3 mg/dL (7-18); CO2 19.9 mmol/L (21.0-32.0); CREATININE 0.5 mg/dL (0.55-1.02); Calcium 8.6 mg/dL (8.5-10.1); Chloride 107 mmol/L (98-107); Glucose 153 mg/dL (74-106); Potassium 3.5 mmol/L (3.5-5.1); Sodium 140 mmol/L (136-145)
--- NOTE | 2024-11-03 09:00 | INITIAL_ITS ---
Date of service: 11/03/24 Time of Service: 09:09 Care Management Initial Assmt Initial Assessment Reason for Hospitalization: Nausea, vomiting, type 1 DM Functional Status/Living Situation Patient Presentation: Monica was lying in bed when CM met with her. She stated that she is feeling a lot better than when she arrived, and would like to know when she can discharge. Per report, she is not yet medically cleared. Monica reported that she lives in [place] with her fiance, Glenn, and her four year old daughter, Bala. 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 Monica stated that it can be difficult for her to get her insulin, as she has to contact her PCP monthly for a refill; CM suggested using the [facility] Portal to communicate with her PCP, which she reported that she recently gained access to. Otherwise she did not note barriers to care or community needs. She is independent at baseline. CM will continue to follow. Town of Residence: [place] Resides with: Child and Spouse (nenita Elizabeth) Significant Other/Family: Local Employment Status: Employed Instrumental Activities of Daily Living (ADLs): Independent Medications Medication Management: No Issues/Barriers identified Advance Directives Advance Directives: Do you have an Advance Directive: N 09/26/19 16:03 AD On File at [facility]: N 09/26/19 16:03 Date Asked 11/02/24 11/02/24 08:21 AD Date Reviewed COLST On File at [facility] No 08/04/21 22:44 COLST Date Scanned Code Status Resuscitation Status Full Code Insurance Coverage/Financial Issues Insurance: [facility] Care Team Visit Care Team Role Provider Type Hetal Leon NP Primary Care Provider NURSE PRACTITIONER Holly Hernandez RDN, [facility] Other Providers VENEER PULLER Jaskaran Mcintyre RDN Other Providers VENEER PULLER JOSUE Reina Emergency Provider PH[employer]ICIANS NARCOTICS AND VICE DETECTIVE Danie Arredondo MD Admit Provider [facility] STAFF PHYSICIAN Attending Provider Discharge Potential Discharge Needs: PCP F/U Appt Anticipated Barriers to Discharge: None Identified Patient/Family Education Needs: Review discharge instructions, discuss Ask Me Three Transportation: Private vehicle Plan: Anticipate Monica will return home once medically cleared. She will transport home via private vehicle by family. She will follow up with her PCP and discharge plan of care. CM will continue to follow. Social Determinants of Health Screening Social Determinants of Health last assessed: 11/03/24 Will the Patient Participate in the Screening?: Yes Do you worry about having a steady place to live?: no Problems where you live: no known problems In the past 12 months, have you had to go without electric, gas, oil or water in your home?: no Have you or anyone in your house had to go without enough food to eat?: no Has lack of transportation kept you from medical appointments or from doing things needed for daily living?: no Has anyone in your life made you feel unsafe or unsupported?: no How hard is it for you to pay for the very basics like food, housing, medical care, and heating? Would you say it is:: Not hard at all Do you want help finding or keeping work or a job?: I do not need or want help If for any reason you need help with day-to-day activities such as bathing, preparing meals, shopping, managing finances, etc., do you get the help you need?: I don?t need any help How often do you feel lonely or isolated from those around you?: Never Do you speak a language other than Arabic at home?: No Does the patient want assistance with any of the above?: No PFSH All Active Problems (Updated 11/02/24 @ 16:12 by JOSUE Reina) DKA (diabetic ketoacidosis) (Acute) 5 weeks gestation of (Acute) Bipolar affective, mixed, unspec (Acute) Hypomagnesemia (Acute) Crohn's disease (Chronic) Last seen by [facility] GI 12/2018, was on Humira, needs referral to GI to re- establish care; Last colo 05/2017 Type 1 diabetes mellitus (Chronic) [facility] Endo in the past (PCP took over management 07/2022); h/o hospitalizations for DKA Anxiety and depression (Chronic) Hypophosphatemia (Acute) Noncompliance with medication regimen (Chronic) Medical History DKA (diabetic ketoacidosis) Hypokalemia COVID-19 Elevated blood pressure affecting in third trimester, antepartum Surgical History Colonoscopy - [facility] (03/06/17) Family History Maternal Grandfather Breast cancer Paternal Cousin Diabetes Maternal Grandfather Heart disease Mother Hypertension Father Mental health disorder Sister Mental health disorder Sister Mental health disorder Social History Smoking/Tobacco Use Status: Current every day Tobacco Type: e-cigarettes Smoking risk assessment performed?: Yes Alcohol Intake: never Drug use: Occasionally Substance use type: marijuana Adopted: No Caregiver/Support person: Yes (2 month old ricardo) Household members: significant other, children and other Details: 05/2022: Lives with boyfriend and 2 y/o dtr Glenn Housing: apartment Number of Children: 1 Communication Needs: None Education Level: high school 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 [employer] Pets and animals: Yes Pets and animals: dog(s) Sexually active: Yes Do you think of yourself as: straight/heterosexual Current gender identity: female Other: Estranged from father who abandoned the family when she was 14 y/o What is your relationship status?: living with partner Panel score (0-1 are the most socially isolated patients): 1 What type of physical activity do you participate in: walking Seatbelt use: always Helmet use: Yes Drive intox or ride w/intox driver utility worker: Yes Working smoke detector in home: Yes Fire extinguisher in home: No Carbon monox detector in home: Yes Firearms in home: No Do you feel safe at home: Yes Do you feel safe in your relationship?: Yes Victim of physical abuse: No Victim of emotional abuse: No Victim of sexual abuse: No Female Reproductive History Menstrual Age of Menarche: 10 Duration of menses: 3-5 days control method: pills History History 1 Para 0 Hx # Term Pregnancies 0 Multiple births 0 Hx # Pregnancies 0 Ectopic pregnancies 0 AB induced 0 Hx Number of Living Children 0 AB spontaneous 0 Past Pregnancies Del. Date GA/Weeks # Preg Succ Route Wgt Sex Labor Lgth Anesth esia Location Prov Complic Unknown 07/14/23 Delivery Date: Last Updated by: Cecy Squires, 2020 - 33 wk at [facility]; IOL for preE w/SF in the setting of type 1 DM Delivery Date: 07/14/23 Last Updated by: Cecy Squires, Jul 2020 - First trimester elective EAB, completed with medication
[2024-11-03] MEDS: Escitalopram 20 MG TAB PO (09:17)
[2024-11-03] MEDS: Insulin Glargine 300 UNITS/3 ML PEN 22 UNITS SC (10:13)
--- NOTE | 2024-11-03 11:13 | W.PM.PROGNOT ---
Date of Service Date of service: 11/03/24 Time of Service: 11:13 Assessment and Plan Assessment and plan (1) Bipolar affective, mixed, unspec: Status: Acute Assessment and plan: c/w medical management including latuda (2) Type 1 diabetes mellitus: Status: Chronic Assessment and plan: PT does have euglycemic dka. Per my discussion with Dr Huerta (sp) [facility] endocrinology the recommendation is to place the pt on an insulin drip with goal bg (150-200). Check BMP q3 hours and once anion gap has closed on two specimen in a row the pt can be started on her home long acting insulin. Once the pt has been on her long acting insulin for 30 minutes, the pt can be taken off the insulin drip and continue with BG qac./hs and appropriate sliding scale coverage. The BMP's will also allow for the correction of electrolyte abnormalities 11/03/24 Our plan this am is to change ivf to ns@125/stop insulin drip after starting lantus for 30 minutes, monitoring BMP for electrolyte disturbances and address accordingly. We will continue with appropriate sliding scale (3) 5 weeks gestation of : Status: Acute Assessment and plan: Please review note attached to the H&P portion of this document. Pt currently has a nonviable and has stated that she plans to terminate this Subjective Subjective Interval history since last seen: Pt seen and examined in her room. Pt states that she is feeling much better. POC d/w pt as well as with bedside nurse Michael during ICU huddle. Exam Narrative Exam Narrative: Head eyes ears nose and throat: Normocephalic atraumatic mucous membranes moist oropharynx clear Neck: No lymphadenopathy no JVD no thyromegaly Cardiovascular: Regular rate and rhythm no murmur rubs gallops Lungs: Clear to auscultation bilaterally with good air exchange Abdomen: Soft nontender nondistended Extremities: No cyanosis clubbing or edema cranial nerves II through XII are intact as tested reflexes upper lower extremity normal as tested Psych: Patient alert and oriented x 3 responds appropriately to verbal cues and to get my linear history General: 24-year-old female appears her stated age no apparent distress Objective Last Vital Signs Temp 37.1 C 11/03/24 07:20 Pulse 71 11/03/24 08:01 Resp 20 11/03/24 08:01 BP 110/77 11/03/24 08:01 Pulse Ox 99 11/03/24 08:01 Laboratory Results - last 24 hr 11/02/24 11/02/24 11/02/24 08:07 09:23 11:32 WBC RBC Hgb Hct MCV MCH MCHC RDW Plt Count MPV Immature Gran % Neutrophils % Lymphocytes % Monocytes % Eosinophils % Basophils % Nucleated RBC % Absolute Neutrophils Absolute Lymphocytes Absolute Monocytes Absolute Eosinophils Absolute Basophils RBC Morphology VBG pH Cancelled VBG pCO2 Cancelled VBG pO2 Cancelled VBG HCO3 Cancelled VBG Total CO2 Cancelled VBG O2 Saturation Cancelled VBG Base Excess Cancelled Sodium Cancelled Potassium Cancelled Chloride Cancelled Carbon Dioxide Cancelled Anion Gap Cancelled BUN Cancelled Creatinine Cancelled Est GFR (CKD-EPI 2020) Cancelled Glucose Cancelled Calcium Cancelled Total Bilirubin AST ALT Alkaline Phosphatase NT-Pro-B Natriuret Pep Total Protein Albumin Salicylates Urine Opiates Screen Negative Urine Methadone Screen Negative Ur Barbiturates Screen Negative Ur Tricyclics Screen Negative Ur Amphetamines Screen Negative U Benzodiazepines Scrn Negative Urine Cocaine Screen Negative Ur THC Screen Positive A Ethylene Glycol 11/02/24 11/02/24 11/02/24 12:20 13:30 14:25 WBC RBC Hgb Hct MCV MCH MCHC RDW Plt Count MPV Immature Gran % Neutrophils % Lymphocytes % Monocytes % Eosinophils % Basophils % Nucleated RBC % Absolute Neutrophils Absolute Lymphocytes Absolute Monocytes Absolute Eosinophils Absolute Basophils RBC Morphology VBG pH 7.24 L VBG pCO2 25 L VBG pO2 42 VBG HCO3 11 L VBG Total CO2 10 L VBG O2 Saturation 77 VBG Base Excess -16 L Sodium 142 142 141 Potassium 4.4 4.4 4.0 Chloride 108 H 109 H 108 H Carbon Dioxide 12.1 L 14.1 L 13.9 L Anion Gap 21.9 H 18.9 H 19.1 H BUN 11 10 8 Creatinine 0.9 0.8 0.8 Est GFR (CKD-EPI 2020) 90.98 104.80 104.80 Glucose 198 H 176 H 285 H Calcium 9.3 8.7 8.6 Total Bilirubin AST ALT Alkaline Phosphatase NT-Pro-B Natriuret Pep Total Protein Albumin Salicylates Urine Opiates Screen Urine Methadone Screen Ur Barbiturates Screen Ur Tricyclics Screen Ur Amphetamines Screen U Benzodiazepines Scrn Urine Cocaine Screen Ur THC Screen Ethylene Glycol 11/02/24 11/02/2411/02/25 15:44 15:47 16:47 WBC 20.50 H RBC 4.09 Hgb 12.5 D Hct 36.4 MCV 89 MCH 30.6 MCHC 34.3 RDW 12.9 Plt Count 386 MPV 10.5 Immature Gran % 0.0 Neutrophils % 92.0 Lymphocytes % 5.0 Monocytes % 3.0 Eosinophils % 0.0 Basophils % 0.0 Nucleated RBC % 0.0 Absolute Neutrophils 18.86 H Absolute Lymphocytes 1.03 L Absolute Monocytes 0.62 Absolute Eosinophils 0.00 Absolute Basophils 0.00 RBC Morphology Normal VBG pH VBG pCO2 VBG pO2 VBG HCO3 VBG Total CO2 VBG O2 Saturation VBG Base Excess Sodium 140 141 Potassium 3.7 3.7 Chloride 107 109 H Carbon Dioxide 16.2 L 17.1 L Anion Gap 16.8 H 14.9 H BUN 8 7 Creatinine 0.8 0.8 Est GFR (CKD-EPI 2020) 104.80 104.80 Glucose 235 H 206 H Calcium 9.1 9.0 Total Bilirubin 0.7 AST 14 L ALT 17 Alkaline Phosphatase 77 NT-Pro-B Natriuret Pep Total Protein 6.9 Albumin 3.4 Salicylates < 2.8 Urine Opiates Screen Urine Methadone Screen Ur Barbiturates Screen Ur Tricyclics Screen Ur Amphetamines Screen U Benzodiazepines Scrn Urine Cocaine Screen Ur THC Screen Ethylene Glycol Cancelled 11/02/24 11/02/24 11/02/24 20:00 21:23 23:23 WBC RBC Hgb Hct MCV MCH MCHC RDW Plt Count MPV Immature Gran % Neutrophils % Lymphocytes % Monocytes % Eosinophils % Basophils % Nucleated RBC % Absolute Neutrophils Absolute Lymphocytes Absolute Monocytes Absolute Eosinophils Absolute Basophils RBC Morphology VBG pH VBG pCO2 VBG pO2 VBG HCO3 VBG Total CO2 VBG O2 Saturation VBG Base Excess Sodium 141 Cancelled Cancelled Potassium 4.1 Cancelled Cancelled Chloride 108 H Cancelled Cancelled Carbon Dioxide 18.5 L Cancelled Cancelled Anion Gap 14.5 H Cancelled Cancelled BUN 8 Cancelled Cancelled Creatinine 0.7 Cancelled Cancelled Est GFR (CKD-EPI 2020) 123.01 Cancelled Cancelled Glucose 110 H Cancelled Cancelled Calcium 9.0 Cancelled Cancelled Total Bilirubin AST ALT Alkaline Phosphatase NT-Pro-B Natriuret Pep Total Protein Albumin Salicylates Urine Opiates Screen Urine Methadone Screen Ur Barbiturates Screen Ur Tricyclics Screen Ur Amphetamines Screen U Benzodiazepines Scrn Urine Cocaine Screen Ur THC Screen Ethylene Glycol 11/02/24 11/03/24 11/03/24 23:56 00:00 03:00 WBC RBC Hgb Hct MCV MCH MCHC RDW Plt Count MPV Immature Gran % Neutrophils % Lymphocytes % Monocytes % Eosinophils % Basophils % Nucleated RBC % Absolute Neutrophils Absolute Lymphocytes Absolute Monocytes Absolute Eosinophils Absolute Basophils RBC Morphology VBG pH VBG pCO2 VBG pO2 VBG HCO3 VBG Total CO2 VBG O2 Saturation VBG Base Excess Sodium 140 Cancelled Potassium 3.3 L Cancelled Chloride 107 Cancelled Carbon Dioxide 19.3 L Cancelled Anion Gap 13.7 H Cancelled BUN 5 L Cancelled Creatinine 0.6 Cancelled Est GFR (CKD-EPI 2020) 127.67 Cancelled Glucose 140 H Cancelled Calcium 8.5 Cancelled Total Bilirubin 0.7 AST 12 L ALT 18 Alkaline Phosphatase 70 NT-Pro-B Natriuret Pep Cancelled Total Protein 6.2 L Albumin 3.1 L Salicylates Urine Opiates Screen Urine Methadone Screen Ur Barbiturates Screen Ur Tricyclics Screen Ur Amphetamines Screen U Benzodiazepines Scrn Urine Cocaine Screen Ur THC Screen Ethylene Glycol 11/03/24 11/03/24 03:10 05:53 WBC RBC Hgb Hct MCV MCH MCHC RDW Plt Count MPV Immature Gran % Neutrophils % Lymphocytes % Monocytes % Eosinophils % Basophils % Nucleated RBC % Absolute Neutrophils Absolute Lymphocytes Absolute Monocytes Absolute Eosinophils Absolute Basophils RBC Morphology VBG pH VBG pCO2 VBG pO2 VBG HCO3 VBG Total CO2 VBG O2 Saturation VBG Base Excess Sodium 142 140 Potassium 3.5 3.5 Chloride 109 H 107 Carbon Dioxide 18.3 L 19.9 L Anion Gap 14.7 H 13.1 H BUN 5 L 3 L Creatinine 0.6 0.5 L Est GFR (CKD-EPI 2020) 127.67 133.40 Glucose 165 H 153 H Calcium 8.5 8.6 Total Bilirubin AST ALT Alkaline Phosphatase NT-Pro-B Natriuret Pep Total Protein Albumin Salicylates Urine Opiates Screen Urine Methadone Screen Ur Barbiturates Screen Ur Tricyclics Screen Ur Amphetamines Screen U Benzodiazepines Scrn Urine Cocaine Screen Ur THC Screen Ethylene Glycol Time Spent with Patient Time Spent with Patient: 25-34 minutes Time was spent: preparing to see the patient(eg.review tests), obtaining and/or reviewing separately otained hiistory, ordering medications,tests, procedures, referring, communicating with other health wound care center consultant, indepentently interpreting results, counseling the patient and care coordination
[2024-11-03] MEDS: Normal Saline 1,000 ML 125 ML IV (11:39)
[2024-11-03 12:14] LABS: Anion Gap 14.6 mmol/L (3-11); BUN 2 mg/dL (7-18); CO2 21.4 mmol/L (21.0-32.0); CREATININE 0.6 mg/dL (0.55-1.02); Calcium 9.2 mg/dL (8.5-10.1); Chloride 106 mmol/L (98-107); Estimated GFR 127.67 (mL/min/1.73m2); Glucose 161 mg/dL (74-106); Potassium 3.4 mmol/L (3.5-5.1); Sodium 142 mmol/L (136-145)
[2024-11-03 16:14] LABS: Anion Gap 16.4 mmol/L (3-11); BUN 5 mg/dL (7-18); CO2 18.6 mmol/L (21.0-32.0); CREATININE 0.6 mg/dL (0.55-1.02); Calcium 8.5 mg/dL (8.5-10.1); Chloride 103 mmol/L (98-107); Estimated GFR 127.67 (mL/min/1.73m2); Glucose 330 mg/dL (74-106); Potassium 3.6 mmol/L (3.5-5.1); Sodium 138 mmol/L (136-145)
[2024-11-03] MEDS: POTASSIUM CHLORIDE/D5-0.45NACL 1,000 ML 200 MEQ IV (16:52)
[2024-11-03] MEDS: INSULIN REGULAR IN 0.9 % NACL 100 UNIT/100 ML BAG IVINF (16:52)
[2024-11-03] MEDS: Insulin Aspart 300 UNITS/3 ML PEN SC ×2 (17:15→17:57)
[2024-11-03] MEDS: Insulin Glargine 300 UNITS/3 ML PEN 32 UNITS SC (20:04)
[2024-11-03 20:10] LABS: Anion Gap 14.3 mmol/L (3-11); BUN 4 mg/dL (7-18); CO2 20.7 mmol/L (21.0-32.0); CREATININE 0.7 mg/dL (0.55-1.02); Calcium 8.8 mg/dL (8.5-10.1); Chloride 105 mmol/L (98-107); Estimated GFR 123.01 (mL/min/1.73m2); Glucose 196 mg/dL (74-106); Potassium 3.1 mmol/L (3.5-5.1); Sodium 140 mmol/L (136-145)
[2024-11-03] MEDS: Potassium Chloride 20 MEQ TABCR 40 MEQ PO (21:15)
[2024-11-04 04:49] VITALS: TEMP 36.7
[2024-11-04 04:52] VITALS: BP 106/69; PULSE 74; RESP 14; O2SAT 97
[2024-11-04 06:26] LABS: Anion Gap 9.9 mmol/L (3-11); BUN 4 mg/dL (7-18); CO2 24.1 mmol/L (21.0-32.0); CREATININE 0.4 mg/dL (0.55-1.02); Chloride 108 mmol/L (98-107); Estimated GFR 140.77 (mL/min/1.73m2); Glucose 113 mg/dL (74-106); Potassium 3.5 mmol/L (3.5-5.1); Sodium 142 mmol/L (136-145)
[2024-11-04 06:32] LABS: Abs Immature Grans 0.04 10^3/uL (0.0-0.06); Absolute Basophil Count 0.04 10^3/uL (0.0-0.2); Absolute Lymphocyte Count 1.81 10^3/uL (1.2-3.4); Absolute Monocyte Count 0.73 10^3/uL (0.1-0.8); Absolute Neutrophil Count 6.71 10^3/uL (1.2-6.7); Basophils % 0.4 %; Eosinophils % 1.1 %; HCT 35.6 % (36.0-46.0); HGB 12.1 g/dL (11.2-15.7); Immature Grans % 0.4 %; Lymphocytes % 19.2 %; MCH 30.1 pg (27.0-33.0); MCV 89 fL (80-95); MPV 10.6 fL (8.0-11.0); Monocytes % 7.7 %; Neutrophils % 71.2 %; Platelet Count 326 10^3/uL (130-400); RBC 4.02 10^6/uL (3.93-5.22); RDW 12.9 % (11.7-14.6); RDW-SD 41.5 fL; WBC 9.43 10^3/uL (4.4-10.8)
[2024-11-04 07:38] VITALS: BP 119/73; PULSE 71; PULSE 73; O2SAT 99
[2024-11-04 07:39] VITALS: TEMP 36.7
[2024-11-04] MEDS: Escitalopram 20 MG TAB PO (08:46)
[2024-11-04] MEDS: Insulin Glargine 300 UNITS/3 ML PEN 32 UNITS SC (08:47)
[2024-11-04] MEDS: Insulin Aspart 300 UNITS/3 ML PEN SC (08:47)
[2024-11-04] MEDS: Normal Saline Flush 10 ML SYR (08:48)
[2024-11-04 09:00] VITALS: PULSE 76; RESP 18
--- NOTE | 2024-11-04 09:35 | W.PM.DS.N ---
Date of service: 11/04/24 Time of Service: 09:35 DS: Diagnosis Discharge Diagnosis (1) Bipolar affective, mixed, unspec: Status: Acute (2) Type 1 diabetes mellitus: Status: Chronic (3) 5 weeks gestation of : Status: Acute Discharge Plan Disposition Patient Disposition: Home Condition: Stable Discharge Details Reason For Visit: Emerson/Vom/Weakness Admit Date/Time: 11/02/24 17:08 Admit Provider: Danie Arredondo Attending Provider: Danie Arredondo Primary Care Provider: Hetal Leon Hospital Course Hospital Course: 24-year-old female who has a known history of diabetes type 1 presents with nausea and vomiting of 24 to 48 hours duration. Workup in the ER was indicative DKA and the patient was subsequently mated to the hospital service. While the workup was to be performed in the ED the patient was noted to be and a consultation to obstetrics was obtained. That consultation is attached below. Patient voiced a desire to have a termination of her . On the the patient's electrolytes and glucose had normalized. Patient asked to be discharged home to which we agreed. The patient states that she does not need any insulin long or short acting or supplies. I did ask the patient if she wanted vitamins and she declined. This is a 24-year-old female with a known history of diabetes type 1 which requires long-acting short acting insulin who presents to the ED with worsening nausea and vomiting over the last 48 hours. While she was in the ED a test was done which turned out to be positive. In reviewing her labs the patient had multiple metabolic acidosis as well appropriate respiratory compensation. Considering the gravid status of the patient I asked them to reach out to endocrinology doctor. Did have a discussion with Dr. De La Torre who recommended insulin drip to keep her blood glucose is between 150-100. Serial laboratory work is to ensure a closed anion gap and then stopping the insulin drip after the patient had been on Lantusor another long-acting medication for 30 minutes. At the time of the admission the patient denied gap has been closed and has not close completely 24-year-old female presenting with tachycardia, leukocytosis, metabolic acidosis likely in the presence of DKA although likely euglycemic DKA. Results: Glucose of 216 initially. Received 2 L of NS and an amp of D25, patient self administered 5 units of insulin at 730 this morning. Initial pH of 7.22 bicarb of 9 and gap of 25. Patient glucose 153 at reassessment given an amp of D25. Potassium of 5. Patient received approximately 3 A of D50 2 A of D25 and 12 units of subcu insulin secondary to euglycemia and concern for risk for hypoglycemia. Gap initially improved to 21.9 and pH of 7.25 however patient remained nauseous, she is not improving her gap is down to 18.9 and she is no longer nauseous. OB was consulted Dr. Radha gutierrez who actually evaluated patient in the emergency department and states patient is 5 weeks per ultrasound. Patient is nonviable at this time and patient wishes to have an elective performed. OB is willing to consult but states no intervention is needed from a standpoint at this time. I spoke with [facility] and they also consulted with [facility] and they are unable secondary to capacity to accept this patient. I did speak with endocrinology, and she feels like management has been appropriate although she recommends deseeding 200 an hour infusion of LR and continuing the 150 cc of D5 with potassium and regular insulin administration. She recommends following DKA protocol and she will speak with our hospitalist Dr. Arredondo to be sure we are capable of managing this patient. She tells me that euglycemic DKA is common in . Patient was unaware she was upon arrival today. Magnesium has been within normal limits tachycardia has improved she is hemodynamically stable I suspect the leukocytosis is secondary to DKA and she did receive an empiric dose of ceftriaxone blood cultures lactate lactate was within normal limits procalcitonin was mildly elevated at 0.17 although lungs are clear to auscultation she is in no respiratory distress at this time so low suspicion clinically for pneumonia urinalysis does not show infection potassium remains at 4.4 she is received 20 mEq of IV potassium over the last 4 hours EKG is reassuring beta-hCG quant is 5854. Assessment and plan: This is a 24 yo ( x1, pharm EAB x1) at 5 0/7 as dated by [facility] (09/28/2024, certain). This coincides with findings on ultrasound where gestational sac measuring 7.6 mm is appreciated on a limited bedside exam and no yolk sac or pole are appreciated. There is no evidence of free fluid or concerns within the adnexa; though, it is important to note that this exam is limited by a full bladder on transvaginal approach. Follow-up formal imaging is suggested within a week. Patient expresses a strong desire for termination. She is provided with information on surrounding facilities that offer the services as well as information on contraception. She was encouraged to follow-up with the clinic within 1 week and seek immediate medical evaluation if she begins to have heavy bleeding for pain that is refractory to [id number] pain medications. Regarding the management of her DKA, this is considered a nonviable as well as an undesired . At this stage, all necessary interventions and medications necessary to stabilize her condition should be utilized as necessary. I am happy to discuss any concerns that may arise regarding any particular medications over the course of her management. Assuming this patient requires admission, I would suggest admission to the ICU under the back tender fourdrinier's, and I am happy to be on consult as needed. Feel free to reach me as necessary at [phone]. Thank you for inviting us to participate in the care of of this patient. (1) Bipolar affective, mixed, unspec: Status: Acute Assessment and plan: c/w medical management including latuda (2) Type 1 diabetes mellitus: Status: Chronic Assessment and plan: PT does have euglycemic dka. Per my discussion with Dr Huerta (sp) [facility] endocrinology the recommendation is to place the pt on an insulin drip with goal bg (150-200). Check BMP q3 hours and once anion gap has closed on two specimen in a row the pt can be started on her home long acting insulin. Once the pt has been on her long acting insulin for 30 minutes, the pt can be taken off the insulin drip and continue with BG qac./hs and appropriate sliding scale coverage. The BMP's will also allow for the correction of electrolyte abnormalities (3) 5 weeks gestation of : Status: Acute Assessment and plan: Please review note attached to the H&P portion of this document. Pt currently has a nonviable and has stated that she plans to terminate this OB Consult Assessment and plan: This is a 24 yo ( x1, pharm EAB x1) at 5 0/7 as dated by [facility] (09/28/2024, certain). This coincides with findings on ultrasound where gestational sac measuring 7.6 mm is appreciated on a limited bedside exam and no yolk sac or pole are appreciated. There is no evidence of free fluid or concerns within the adnexa; though, it is important to note that this exam is limited by a full bladder on transvaginal approach. Follow-up formal imaging is suggested within a week. Patient expresses a strong desire for termination. She is provided with information on surrounding facilities that offer the services as well as information on contraception. She was encouraged to follow-up with the clinic within 1 week and seek immediate medical evaluation if she begins to have heavy bleeding for pain that is refractory to [id number] pain medications. Regarding the management of her DKA, this is considered a nonviable as well as an undesired . At this stage, all necessary interventions and medications necessary to stabilize her condition should be utilized as necessary. I am happy to discuss any concerns that may arise regarding any particular medications over the course of her management. Assuming this patient requires admission, I would suggest admission to the ICU under the back tender fourdrinier's, and I am happy to be on consult as needed. Feel free to reach me as necessary at [phone]. Thank you for inviting us to participate in the care of of this patient. Home Meds and New Rx's Prescriptions: Continued (DME) lancets Misc See Rx Instructions .ROUTE .MEDSUPPLY Qty: 400 3RF Rx Instructions: As directed to check blood glucose four times daily. On insulin. Dispense covered brand. (DME) pen needle, diabetic [Pen Needle] 32 gauge x 5/32 needle See Rx Instructions .ROUTE .MEDSUPPLY Qty: 400 3RF Rx Instructions: As directed to administer insulin 4 times daily. (DME) Dexcom G6 Transmitter Device See Rx Instructions .Route Qty: 1 3RF Rx Instructions: for blood sugar checks ac/hs and prn DX: E10.9 (DME) Dexcom G6 Sensor Device See Rx Instructions .ROUTE .COMPLEX Qty: 3 6RF Dose Instruction: USE TO CHECK BLOOD SUGAR BEFORE A MEAL AND AT BEDTIME NEEDED DIRECTED Rx Instructions: USE TO CHECK BLOOD SUGAR BEFORE A MEAL AND AT BEDTIME NEEDED DIRECTED insulin aspart U-100 [Novolog FlexPen U-100 Insulin] 100 unit/mL (3 mL) insulin pen See Rx Instructions subcut QAC Qty: 45 6RF Rx Instructions: subcutaneously before meals; 1-30u QAC. Carb counting (DME) pen needle, diabetic [BD Ultra-Fine Gissel Pen Needle] 32 gauge x 5/32 needle See Rx Instructions .ROUTE .COMPLEX Qty: 100 0RF Rx Instructions: 1 device as directed ;use as directed escitalopram oxalate 20 mg tablet 20 mg PO DAILY Patient Comments: TAKE 1 TABLET BY MOUTH DAILY methylphenidate HCl 36 mg tablet extended release 24hr 36 mg PO QAM Patient Comments: TAKE 1 TABLET BY MOUTH EVERY MORNING. SWALLOW WHOLE insulin glargine [Basaglar KwikPen U-100 Insulin] 100 unit/mL (3 mL) insulin pen 32 unit subcut BID Discharge Instructions Referrals: Hetal Leon NP [Primary Care Provider] - Activity:: Activity as Tolerated Equipment/Supplies:: No Equipment Needed Diet:: As Tolerated Discharge Orders Discharge Orders: Discharge Order (Routine); Ordered 11/04/24 Ordered By: Danie Arredondo DS: Summary Summary Time spent discussing smoking cessation with patient: more than 10 minutes Time Spent with Patient providing and/or coordinating discharge services: Greater than 30 minutes Status at Discharge Functional status at discharge: independent ambulation Overall status at discharge: patient is back to baseline Mental Status: mental status grossly normal Speech and Movement: speech and movement normal Mood: congruent mood Affect: normal affect Quality:SDOH Health Related Social Needs: No Data to Display Exam Narrative Exam Narrative: Head eyes ears nose and throat: Normocephalic atraumatic mucous membranes moist oropharynx clear Neck: No lymphadenopathy no JVD no thyromegaly Cardiovascular: Regular rate and rhythm no murmur rubs gallops Lungs: Clear to auscultation bilaterally with good air exchange Abdomen: Soft nontender nondistended Extremities: No cyanosis clubbing or edema cranial nerves II through XII are intact as tested reflexes upper lower extremity normal as tested Psych: Patient alert and oriented x 3 responds appropriately to verbal cues and to get my linear history General: 24-year-old female appears her stated age no apparent distress Psych Mental Status: mental status grossly normal Speech and Movement: speech and movement normal Mood: congruent mood Affect: normal affect DS: Data Vitals/I&O Vitals and I&O: Vital Signs Temperature 36.7 C 11/04/24 07:39 Temperature Source Temporal Artery Scan 11/04/24 07:39 Pulse 73 11/04/24 07:38 Pulse 71 11/04/24 07:38 Respiratory Rate 14 11/04/24 04:52 Respiratory Effort Normal, Non-Labored 11/02/24 17:20 Respiratory Depth Normal 11/02/24 17:20 Respiratory Pattern Normal 11/02/24 17:20 Blood Pressure 119/73 11/04/24 07:38 Blood Pressure Mean 87 11/04/24 07:38 Blood Pressure Position Supine 11/02/24 17:20 Pulse Oximetry 99 11/04/24 07:38 Oxygen Delivery Method Room Air 11/04/24 04:49 Oxygen Flow Rate 0 11/04/24 04:49 Pain Level 2 11/03/24 17:45 Intake & Output 11/03/24 11/03/24 11/04/24 11:59 23:59 11:59 Intake Total 1216.675 / 3071.959 1855.284 / 3071.959 0 / 0 Output Total 1989 250 / 250 Balance 841.675 / 1081.959 240.284 / 1081.959 -250 / -250 Weight 82.5 kg 80.8 kg Intake: IV 1166.675 / 2721.959 1555.284 / 2721.959 Oral 50 / 350 300 / 350 0 / 0 Output: Urine 1989 250 / 250 Other: Urine Color Yellow Yellow Yellow Urine Appearance Clear Clear Clear Urine Odor None Normal Data Completed and Pending Labs on day of discharge: Labs from last 24 hours 11/04/24 11/03/24 11/03/24 05:40 23:30 19:40 WBC 9.43 RBC 4.02 Hgb 12.1 Hct 35.6 L MCV 89 MCH 30.1 MCHC 34.0 RDW 12.9 Plt Count 326 MPV 10.6 Immature Gran % 0.4 Neutrophils % 71.2 Lymphocytes % 19.2 Monocytes % 7.7 Eosinophils % 1.1 Basophils % 0.4 Nucleated RBC % 0.0 Absolute Neutrophils 6.71 H Absolute Lymphocytes 1.81 Absolute Monocytes 0.73 Absolute Eosinophils 0.10 Absolute Basophils 0.04 Sodium 142 Cancelled 140 Potassium 3.5 Cancelled 3.1 L Chloride 108 H Cancelled 105 Carbon Dioxide 24.1 Cancelled 20.7 L Anion Gap 9.9 Cancelled 14.3 H BUN 4 L Cancelled 4 L Creatinine 0.4 L Cancelled 0.7 Est GFR (CKD-EPI 2020) 140.77 Cancelled 123.01 Glucose 113 H Cancelled 196 H Calcium 9.0 Cancelled 8.8 11/03/24 11/03/24 15:35 11:52 WBC RBC Hgb Hct MCV MCH MCHC RDW Plt Count MPV Immature Gran % Neutrophils % Lymphocytes % Monocytes % Eosinophils % Basophils % Nucleated RBC % Absolute Neutrophils Absolute Lymphocytes Absolute Monocytes Absolute Eosinophils Absolute Basophils Sodium 138 142 Potassium 3.6 3.4 L Chloride 103 106 Carbon Dioxide 18.6 L 21.4 Anion Gap 16.4 H 14.6 H BUN 5 L 2 L Creatinine 0.6 0.6 Est GFR (CKD-EPI 2020) 127.67 127.67 Glucose 330 H 161 H Calcium 8.5 9.2 Preliminary micro results at discharge 11/02/24 20:00 Blood Culture - Preliminary Blood NO GROWTH 24 HOURS 11/02/24 12:20 Blood Culture - Preliminary Blood NO GROWTH 24 HOURS PFSH All Active Problems (Updated 11/02/24 @ 16:12 by JOSUE Reina) DKA (diabetic ketoacidosis) (Acute) 5 weeks gestation of (Acute) Bipolar affective, mixed, unspec (Acute) Hypomagnesemia (Acute) Crohn's disease (Chronic) Last seen by [facility] GI 12/2018, was on Humira, needs referral to GI to re-establish care; Last colo 05/2017 Type 1 diabetes mellitus (Chronic) [facility] Endo in the past (PCP took over management 07/2022); h/o hospitalizations for DKA Anxiety and depression (Chronic) Hypophosphatemia (Acute) Noncompliance with medication regimen (Chronic) Medical History DKA (diabetic ketoacidosis) Hypokalemia COVID-19 Elevated blood pressure affecting in third trimester, antepartum Surgical History Colonoscopy - [facility] (03/06/17) Family History Maternal Grandfather Breast cancer Paternal Cousin Diabetes Maternal Grandfather Heart disease Mother Hypertension Father Mental health disorder Sister Mental health disorder Sister Mental health disorder Social History Smoking/Tobacco Use Status: Current every day Tobacco Type: e-cigarettes Smoking risk assessment performed?: Yes Alcohol Intake: never Drug use: Occasionally Substance use type: marijuana Adopted: No Caregiver/Support person: Yes (2 month old ricardo) Household members: significant other, children and other Details: 05/2022: Lives with boyfriend and 2 y/o dtr Glenn Housing: apartment Number of Children: 1 Communication Needs: None Education Level: high school 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 [employer] Pets and animals: Yes Pets and animals: dog(s) Sexually active: Yes Do you think of yourself as: straight/heterosexual Current gender identity: female Other: Estranged from father who abandoned the family when she was 14 y/o What is your relationship status?: living with partner Panel score (0-1 are the most socially isolated patients): 1 What type of physical activity do you participate in: walking Seatbelt use: always Helmet use: Yes Drive intox or ride 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 Date GA/Weeks # Preg Succ Route Wgt Sex Labor Lgth Anesthesia Location Prov Complic Unknown 07/14/23 Delivery Date: Last Updated by: Cecy Squires DO 2019 - 33 wk at [facility]; IOL for preE w/SF in the setting of type 1 DM Delivery Date: 07/14/23 Last Updated by: Cecy Squires DO Jul 2020 - First trimester elective EAB, completed with medication Time Spent with Patient Time Spent with Patient: 45-69 minutes Time was spent: preparing to see the patient(eg.review tests), obtaining and/or reviewing separately otained hiistory, ordering medications,tests, procedures, referring, communicating with other health foster care therapist, indepentently interpreting results, counseling the patient and care coordination
--- NOTE | 2024-11-04 09:53 | PDOC.CMDIS ---
Date of service: 11/04/24 Time of Service: 09:53 LACE Index Scoring Tool Questions: Length of Stay (in days): 2 Was the patient admitted via the E.D.?: Yes Comorbidities: Diabetes w/o Complication E.D. Visits: 1 Answers: Total Score: 7 Risk of Readmission: Low Risk Care Management Discharge Plan Reason for Hospitalization: DKA Discharge Plan: Monica is discharged home today with no new services. She will f/u with her PCP on 11/07 and continue per her plan of care. Monica will transport home in a private vehicle. Patient/Family Education Needs: Review of discharge instructions, activity, limitations and discuss ask me 3. SDOH Health Related Social Needs: No Data to Display
--- NOTE | 2024-11-04 09:54 | W.INDIABCONS ---
Date of service: 11/04/24 Time of Service: 10:00 Diabetes Inpatient Consult Reason for Visit: diabetes consult DESCRIPTION/ASSESSMENT: visited with pt as getting ready for discharge (was not here monday or monday when consult came in). was able to give her my contact info for outpatient nutrition support if desired. Encouraged her to call and set up appt Time Spent in Nutritional Counseling and Treatment: 3 minutes
== END 2024-11-04 09:50 | disposition home or self-care (01) | DRG 638 ==
LOC: ER 16:12 → ICU 11-03 17:49
PROVIDERS: Family Medicine; Admitting Provider Hospitalist; Emergency Provider Physician Assistant; PCP Nurse Practitioner Family; Responsible Provider Hospitalist; Visit Provider Hospitalist
DX: E10.10 Type 1 diabetes mellitus with ketoacidosis without coma; F31.60 Bipolar disorder, current episode mixed, unspecified; K50.90 Crohn's disease, unspecified, without complications; D72.829 Elevated white blood cell count, unspecified; E83.42 Hypomagnesemia; F41.8 Other specified anxiety disorders; E87.6 Hypokalemia; E83.31 Familial hypophosphatemia; Z91.148 Patient's other noncompliance with medication regimen for other reason; O02.1 Missed abortion
CPT/HCPCS: 00123; 36415; 36416; 76815; 76817; 80048; 80053; 80307; 81025; 82693; 82805; 82962; 84145; 87040; 87637; 93005; 96361; 96365; 96375; 96376; 99291; 80329; 81003; 81015; 83605; 83735; 83880; 84100; 84702; 84703; 85025; 93010; 99223; 99232; 99239; J0696; J1815; J2405; J2765; J3480

== ENCOUNTER 2024-12-10 11:33 | Outpatient (REF) | payer OTHER, SELFPAY ==
[2024-12-10 16:24] LABS: TSH (W/Ref FT4) 0.38 uIU/mL (0.36-3.74)
== END 2024-12-10 11:34 | disposition home or self-care (01) ==
LOC: LBN 11:33
PROVIDERS: PCP Nurse Practitioner Family; Visit Provider Nurse Practitioner Family
DX: R63.5 Abnormal weight gain (principal)
CPT/HCPCS: 84443

== ENCOUNTER 2025-07-18 11:15 | Outpatient (REF) | payer OTHER, SELFPAY | END 2025-07-18 11:16 | disposition home or self-care (01) | LOC: LBN 11:15 | PROVIDERS: PCP Nurse Practitioner Family; Visit Provider Emergency Medicine | DX: R31.9 Hematuria, unspecified (principal); R50.9 Fever, unspecified; E10.65 Type 1 diabetes mellitus with hyperglycemia | CPT/HCPCS: 87086 ==